=== PATIENT | male | born 1950 | race Caucasian/White ===

== ENCOUNTER → 2016-04-29 | Outpatient (CLI) | payer OTHER ==
[~2016-04-29] MED LIST: /AUGM875TA OR; ACET65TA OR; ALLE25CA PO; ALPR0.25 PO; AMLO5TAB2 PO; AZIT250T PO; BABY81CH; BABY81CH PO; CARD180T OR; CHERSYP3 PO; DIPH50CA PO; DOXA2TAB PO; DYAZ37.5 OR; ENAL10TA2 OR; ENAL20TA OR; ENAL20TA PO; ENAL5TAB; FERR325T OR; HYDR12.55 PO; HYDR25TA7; METAMUCIL PO; METO100T PO; MOTRIN PO; MULTCAP PO; PERCOCET PO; PRED1TAB32 PO; PRIL40CA PO; SIMV20TA2 PO; SKEL800T5; TESS100C OR; TRAZ50TA4 PO; VASO20TA PO; VICO5TAB OR; VITA500T OR; ZOCO20TA
[2016-04-29 14:03] LABS: ALBUMIN/GLOBULIN RATIO 1.21 (1.00-1.93); ALKALINE PHOSPHATASE 51 U/L (45-117); ALT/SGPT 34 U/L (12-78); ANION GAP 4 MEQ/L (8-16); AST/SGOT 28 U/L (15-37); BILIRUBIN,TOTAL 0.5 MG/DL (0.2-1.0); BLOOD UREA NITROGEN 12 MG/DL (7-18); CALCIUM LEVEL 8.8 MG/DL (8.8-10.2); CARBON DIOXIDE LEVEL 33 MEQ/L (21-32); CHLORIDE LEVEL 105 MEQ/L (98-107); CHOLESTEROL LEVEL 196 MG/DL (<200); CREATININE FOR GFR 0.85 MG/DL (0.70-1.30); GLOMERULAR FILTRATION RATE > 60.0 (>49); GLUCOSE, FASTING 130 MG/DL (80-110); POTASSIUM SERUM 4.8 MEQ/L (3.5-5.1); SODIUM LEVEL 142 MEQ/L (136-145); TOTAL PROTEIN 7.3 GM/DL (6.4-8.2); TRIGLYCERIDES LEVEL 49 MG/DL (<150)
== END ==
LOC: M WUC 08:28
PROVIDERS: ATTEND Nurse Practitioner Family
DX: E11.9 Type 2 diabetes mellitus without complications (principal); E78.4 Other hyperlipidemia; I10 Essential (primary) hypertension

== ENCOUNTER → 2016-10-21 | Outpatient (CLI) | payer OTHER ==
[~2016-10-21] MED LIST changes: -METO100T PO; +METO100T5 PO; +TRAZ50TA11 PO; -TRAZ50TA4 PO
[2016-10-21 09:39] LABS: BASO % 0.6 % (0.0-1.0); EOS # 0.1 K/mm3 (0.0-0.50); EOS % 1.3 % (0.0-3.0); LARGE UNSTAINED CELL # 0.1 K/mm3 (0.0-0.4); LARGE UNSTAINED CELL % 1.8 % (0.0-4.0); LYMPH # 1.1 K/mm3 (1.5-4.5); LYMPH % 20.8 % (24.0-44.0); MEAN CORPUSCULAR HEMOGLOBIN 31.1 pg (27.0-33.0); MEAN CORPUSCULAR HGB CONC 33.2 g/dl (32.0-36.5); MEAN CORPUSCULAR VOLUME 93.7 fl (80.0-96.0); MONO # 0.4 K/mm3 (0.0-0.8); MONO % 6.9 % (0.0-5.0); NEUTROPHILS # 3.5 K/mm3 (1.8-7.7); NEUTROPHILS % 68.5 % (36.0-66.0); PLATELET COUNT, AUTOMATED 262 k/mm3 (150-450); RED CELL DISTRIBUTION WIDTH 12.1 % (11.5-14.5); WHITE BLOOD COUNT 5.1 K/mm3 (4.0-10.0)
[2016-10-21 10:08] LABS: ALBUMIN 3.5 GM/DL (3.2-5.2); ALBUMIN/GLOBULIN RATIO 1.03 (1.00-1.93); ALKALINE PHOSPHATASE 52 U/L (45-117); ALT/SGPT 28 U/L (12-78); ANION GAP 8 MEQ/L (8-16); AST/SGOT 21 U/L (15-37); BILIRUBIN,TOTAL 0.4 MG/DL (0.2-1.0); BLOOD UREA NITROGEN 12 MG/DL (7-18); CALCIUM LEVEL 8.7 MG/DL (8.8-10.2); CARBON DIOXIDE LEVEL 29 MEQ/L (21-32); CHLORIDE LEVEL 103 MEQ/L (98-107); CHOLESTEROL LEVEL 185 MG/DL (<200); CREATININE FOR GFR 0.72 MG/DL (0.70-1.30); GLOMERULAR FILTRATION RATE > 60.0 (>49); GLUCOSE, FASTING 119 MG/DL (80-110); POTASSIUM SERUM 4.9 MEQ/L (3.5-5.1); SODIUM LEVEL 140 MEQ/L (136-145); TOTAL PROTEIN 6.9 GM/DL (6.4-8.2); TRIGLYCERIDES LEVEL 51 MG/DL (<150)
== END ==
LOC: M WUC 08:22
PROVIDERS: ATTEND Nurse Practitioner Family
DX: I10 Essential (primary) hypertension (principal); E11.9 Type 2 diabetes mellitus without complications; E78.4 Other hyperlipidemia

== ENCOUNTER → 2016-10-28 | Outpatient (CLI) | payer OTHER | LOC: M WUC 10:39 | PROVIDERS: ATTEND Nurse Practitioner Family | DX: Z12.5 Encounter for screening for malignant neoplasm of prostate (principal) ==

== ENCOUNTER → 2017-12-06 | Outpatient (CLI) | payer MEDICARE, OTHER ==
[2017-12-06 13:44] LABS: BASO % 0.7 % (0.0-1.0); EOS # 0.1 10^3/uL (0.0-0.50); EOS % 1.5 % (0.0-3.0); HEMATOCRIT 40.2 % (42.0-52.0); HEMOGLOBIN 13.5 g/dl (13.5-17.5); IMMATURE GRANULOCYTE % 0.3 % (0-3.0); LYMPH # 1.2 10^3/uL (1.5-4.5); LYMPH % 20.9 % (24.0-44.0); MEAN CORPUSCULAR HEMOGLOBIN 30.8 pg (27.0-33.0); MEAN CORPUSCULAR HGB CONC 33.6 g/dl (32.0-36.5); MEAN CORPUSCULAR VOLUME 91.8 fl (80.0-96.0); MONO # 0.6 10^3/uL (0.0-0.8); MONO % 9.5 % (0.0-5.0); NEUTROPHILS % 67.1 % (36.0-66.0); PLATELET COUNT, AUTOMATED 237 10^3/uL (150-450); RED BLOOD COUNT 4.38 10^6/uL (4.30-6.10); RED CELL DISTRIBUTION WIDTH 12.4 % (11.5-14.5); WHITE BLOOD COUNT 5.9 10^3/uL (4.0-10.0)
[2017-12-06 14:11] LABS: ALBUMIN/GLOBULIN RATIO 1.43 (1.00-1.93); ALKALINE PHOSPHATASE 45 U/L (45-117); ALT/SGPT 41 U/L (12-78); ANION GAP 10 MEQ/L (8-16); AST/SGOT 28 U/L (7-37); BILIRUBIN,TOTAL 0.5 MG/DL (0.2-1.0); BLOOD UREA NITROGEN 13 MG/DL (7-18); CALCIUM LEVEL 8.9 MG/DL (8.8-10.2); CARBON DIOXIDE LEVEL 28 MEQ/L (21-32); CHLORIDE LEVEL 101 MEQ/L (98-107); CHOLESTEROL LEVEL 174 MG/DL (<200); CHOLESTEROL RISK RATIO 1.831 (<5); CREATININE FOR GFR 0.77 MG/DL (0.70-1.30); GLOMERULAR FILTRATION RATE > 60.0 (>49); GLUCOSE, FASTING 113 MG/DL (70-100); HDL CHOLESTEROL 95 MG/DL (>40); LDL CHOLESTEROL 67 MG/DL (<100); NON-HDL-C 79 MG/DL; POTASSIUM SERUM 4.6 MEQ/L (3.5-5.1); SODIUM LEVEL 139 MEQ/L (136-145); TOTAL PROTEIN 6.8 GM/DL (6.4-8.2); TRIGLYCERIDES LEVEL 59 MG/DL (<150)
[2017-12-06 14:59] LABS: ESTIMATED AVERAGE GLUCOSE 111 MG/DL (60-110); HEMOGLOBIN A1c 5.5 %
[2017-12-07 14:20] LABS: PSA TOTAL 1.6 ng/mL (0.0-4.0)
== END ==
LOC: M WUC 09:14
DX: I10 Essential (primary) hypertension (principal); E11.9 Type 2 diabetes mellitus without complications; E78.4 Other hyperlipidemia; Z12.5 Encounter for screening for malignant neoplasm of prostate
CPT/HCPCS: 80053

== ENCOUNTER 2018-01-31 10:27 | Emergency (ER) | payer MEDICARE, OTHER ==
[2018-01-31 11:01] LABS: BASO # 0.1 10^3/uL (0.0-0.2); BASO % 1.1 % (0.0-1.0); EOS # 0.3 10^3/uL (0.0-0.50); EOS % 6.4 % (0.0-3.0); HEMATOCRIT 42.3 % (42.0-52.0); HEMOGLOBIN 14.3 g/dl (13.5-17.5); LYMPH # 1.1 10^3/uL (1.5-4.5); LYMPH % 20.6 % (24.0-44.0); MEAN CORPUSCULAR HEMOGLOBIN 31.2 pg (27.0-33.0); MEAN CORPUSCULAR HGB CONC 33.8 g/dl (32.0-36.5); MEAN CORPUSCULAR VOLUME 92.2 fl (80.0-96.0); MONO # 0.5 10^3/uL (0.0-0.8); MONO % 9.6 % (0.0-5.0); NEUTROPHILS # 3.3 10^3/uL (1.8-7.7); NEUTROPHILS % 62.3 % (36.0-66.0); PLATELET COUNT, AUTOMATED 248 10^3/uL (150-450); RED BLOOD COUNT 4.59 10^6/uL (4.30-6.10); RED CELL DISTRIBUTION WIDTH 12.2 % (11.5-14.5); WHITE BLOOD COUNT 5.3 10^3/uL (4.0-10.0)
[2018-01-31 11:20] LABS: ANION GAP 5 MEQ/L (8-16); BLOOD UREA NITROGEN 8 MG/DL (7-18); CALCIUM LEVEL 9.1 MG/DL (8.8-10.2); CARBON DIOXIDE LEVEL 29 MEQ/L (21-32); CHLORIDE LEVEL 102 MEQ/L (98-107); GLOMERULAR FILTRATION RATE > 60.0 (>49); GLUCOSE, FASTING 141 MG/DL (70-100); SODIUM LEVEL 136 MEQ/L (136-145)
[2018-01-31 11:51] LABS: INFLUENZA A AMPLIFICATION NEGATIVE (NEGATIVE); INFLUENZA B AMPLIFICATION NEGATIVE (NEGATIVE)
== END 2018-01-31 12:20 | disposition home or self-care (01) ==
LOC: M ED 10:27
DX: J06.9 Acute upper respiratory infection, unspecified (principal); R50.9 Fever, unspecified; Z88.1 Allergy status to other antibiotic agents; Z88.8 Allergy status to other drugs, medicaments and biological substances; Z91.040 Latex allergy status; Z95.1 Presence of aortocoronary bypass graft; Z95.2 Presence of prosthetic heart valve; Z79.899 Other long term (current) drug therapy; Z79.82 Long term (current) use of aspirin
CPT/HCPCS: 71046

== ENCOUNTER → 2018-07-26 | Outpatient (CLI) | payer MEDICARE, OTHER ==
[~2018-07-26] MED LIST changes: +AMLO10TA PO; -AMLO5TAB2 PO; +AMLO5TAB6 PO; +BENZ200C70 PO; +DOXA1TAB67 PO; +LISI-538 PO; +LORA-243 PO; +METO50TA7 PO; +PAXI30TA11 PO; +TRAZ-160 PO; -TRAZ50TA11 PO
[2018-07-26 12:46] LABS: BASO % 0.8 % (0.0-1.0); EOS % 0.8 % (0.0-3.0); HEMATOCRIT 41.9 % (42.0-52.0); HEMOGLOBIN 13.4 g/dl (13.5-17.5); LYMPH # 1.2 10^3/uL (1.5-4.5); LYMPH % 22.8 % (24.0-44.0); MEAN CORPUSCULAR HEMOGLOBIN 30.7 pg (27.0-33.0); MEAN CORPUSCULAR VOLUME 95.9 fl (80.0-96.0); MONO # 0.6 10^3/uL (0.0-0.8); MONO % 11.1 % (0.0-5.0); NEUTROPHILS # 3.2 10^3/uL (1.8-7.7); NEUTROPHILS % 64.1 % (36.0-66.0); PLATELET COUNT, AUTOMATED 247 10^3/uL (150-450); RED BLOOD COUNT 4.37 10^6/uL (4.30-6.10); WHITE BLOOD COUNT 5.1 10^3/uL (4.0-10.0)
[2018-07-26 13:07] LABS: ALBUMIN 3.4 GM/DL (3.2-5.2); ALT/SGPT 31 U/L (12-78); BILIRUBIN,TOTAL 0.4 MG/DL (0.2-1.0); BLOOD UREA NITROGEN 11 MG/DL (7-18); CALCIUM LEVEL 8.4 MG/DL (8.8-10.2); CARBON DIOXIDE LEVEL 28 MEQ/L (21-32); CHLORIDE LEVEL 106 MEQ/L (98-107); CHOLESTEROL LEVEL 165 MG/DL (<200); CHOLESTEROL RISK RATIO 1.718 (<5); CREATININE FOR GFR 0.81 MG/DL (0.70-1.30); GLOMERULAR FILTRATION RATE > 60.0 (>49); GLUCOSE, FASTING 117 MG/DL (70-100); HDL CHOLESTEROL 96 MG/DL (>40); LDL CHOLESTEROL 61 MG/DL (<100); NON-HDL-C 69 MG/DL; POTASSIUM SERUM 4.5 MEQ/L (3.5-5.1); SODIUM LEVEL 141 MEQ/L (136-145); TOTAL PROTEIN 6.8 GM/DL (6.4-8.2); TRIGLYCERIDES LEVEL 40 MG/DL (<150)
[2018-07-26 13:38] LABS: HEMOGLOBIN A1c 5.4 %
== END ==
LOC: M WUC 08:53
PROVIDERS: ATTEND Nurse Practitioner Family
DX: E11.9 Type 2 diabetes mellitus without complications (principal); I10 Essential (primary) hypertension; E78.49 Other hyperlipidemia

== ENCOUNTER 2018-09-29 09:21 | Emergency (ER) | payer MEDICARE, OTHER ==
[~2018-09-29] VITALS: Ht 177.8 cm; Wt 80.5 kg
[~2018-09-29 09:21] MED LIST changes: -TRAZ-160 PO; +TRAZ-252 PO
[2018-09-29 09:53] LABS: BASO % 0.3 % (0.0-1.0); EOS % 0.5 % (0.0-3.0); LYMPH # 0.7 10^3/uL (1.5-4.5); LYMPH % 12.2 % (24.0-44.0); MEAN CORPUSCULAR HEMOGLOBIN 30.7 pg (27.0-33.0); MEAN CORPUSCULAR HGB CONC 33.3 g/dl (32.0-36.5); MONO # 0.6 10^3/uL (0.0-0.8); MONO % 10.6 % (0.0-5.0); NEUTROPHILS # 4.4 10^3/uL (1.8-7.7); NEUTROPHILS % 76.1 % (36.0-66.0); PLATELET COUNT, AUTOMATED 240 10^3/uL (150-450); RED BLOOD COUNT 4.89 10^6/uL (4.30-6.10); WHITE BLOOD COUNT 5.8 10^3/uL (4.0-10.0)
[2018-09-29] MEDS ORDERED: NS 1,000 ML IV ONE (10:00)
[2018-09-29 10:08] LABS: PROTHROMBIN TIME 12.9 SECONDS (11.8-14.0)
[2018-09-29 10:16] LABS: ALBUMIN 3.8 GM/DL (3.2-5.2); ALT/SGPT 41 U/L (12-78); BILIRUBIN,DIRECT 0.2 MG/DL (0.0-0.2); BILIRUBIN,TOTAL 0.5 MG/DL (0.2-1.0); BLOOD UREA NITROGEN 15 MG/DL (7-18); CALCIUM LEVEL 8.8 MG/DL (8.8-10.2); CARBON DIOXIDE LEVEL 27 MEQ/L (21-32); CHLORIDE LEVEL 104 MEQ/L (98-107); CREATININE FOR GFR 0.87 MG/DL (0.70-1.30); GLOMERULAR FILTRATION RATE > 60.0 (>49); GLUCOSE, FASTING 119 MG/DL (70-100); LIPASE 291 U/L (73-393); POTASSIUM SERUM 4.6 MEQ/L (3.5-5.1); SODIUM LEVEL 137 MEQ/L (136-145); TOTAL PROTEIN 7.4 GM/DL (6.4-8.2)
[2018-09-29] MEDS ORDERED: ISOVUE-370 76% 100ML VIAL (Q9967) As Ordered ONE (10:30)
[2018-09-29 11:35] VITALS: BP 152/75
--- NOTE | 2018-09-29 13:07 | REP ---
CT of the abdomen pelvis with IV contrast, without bowel contrast: The visualized lung carrasco are unremarkable. The hepatic parenchyma, gallbladder, pancreas, spleen, adrenals and kidneys are unremarkable except for a Bosniak type 1 3.2 cm left renal cyst, and changed. The abdominal aorta is unremarkable except for calcified atheroma. There is no retroperitoneal adenopathy or mass. There is wall thickening of the descending colon and sigmoid colon compatible with colitis in the appropriate clinical setting as an interval change. There is sigmoid diverticulosis without diverticulitis, unchanged. Pelvis: The terminal ileum is unremarkable. The bladder is unremarkable. There is no adenopathy or ascites. Impression: There is wall thickening of the descending colon and sigmoid colon compatible with colitis in the appropriate clinical setting. Diverticulosis without diverticulitis, unchanged. Bosniak type 1 simple left renal cyst, unchanged. Electronically Signed by Willie Ni MD 09/29/2018 12:59 P
== END 2018-09-29 11:53 | disposition home or self-care (01) ==
LOC: M ED 09:21
DX: K52.9 Noninfective gastroenteritis and colitis, unspecified (principal); I11.0 Hypertensive heart disease with heart failure; I50.9 Heart failure, unspecified; E78.9 Disorder of lipoprotein metabolism, unspecified; F41.9 Anxiety disorder, unspecified; Z79.899 Other long term (current) drug therapy; Z79.82 Long term (current) use of aspirin; Z88.1 Allergy status to other antibiotic agents; Z88.8 Allergy status to other drugs, medicaments and biological substances; Z87.891 Personal history of nicotine dependence
CPT/HCPCS: 36415; 74177; 80048; 80076; 83690; 85025; 85610; 85730; 86850; 86900; 86901; 87507; 99284; Q9967

== ENCOUNTER → 2018-12-14 | Outpatient (CLI) | payer MEDICARE, OTHER ==
[2018-12-14 12:21] LABS: BASO % 0.5 % (0.0-1.0); EOS # 0.2 10^3/uL (0.0-0.5); EOS % 2.6 % (0.0-3.0); HEMATOCRIT 42.8 % (42.0-52.0); HEMOGLOBIN 14.1 g/dl (13.5-17.5); LYMPH # 1.2 10^3/uL (1.5-5.0); LYMPH % 19.4 % (24.0-44.0); MEAN CORPUSCULAR HEMOGLOBIN 30.4 pg (27.0-33.0); MEAN CORPUSCULAR HGB CONC 32.9 g/dl (32.0-36.5); MEAN CORPUSCULAR VOLUME 92.2 fl (80.0-96.0); MONO # 0.6 10^3/uL (0.0-0.8); MONO % 9.9 % (0.0-5.0); NEUTROPHILS # 4.1 10^3/uL (1.5-8.5); NEUTROPHILS % 67.1 % (36.0-66.0); PLATELET COUNT, AUTOMATED 281 10^3/uL (150-450); RED BLOOD COUNT 4.64 10^6/uL (4.30-6.10)
[2018-12-14 12:29] LABS: BLOOD UREA NITROGEN 13 MG/DL (7-18); CALCIUM LEVEL 8.5 MG/DL (8.8-10.2); CARBON DIOXIDE LEVEL 30 MEQ/L (21-32); CHLORIDE LEVEL 103 MEQ/L (98-107); CHOLESTEROL LEVEL 178 MG/DL (<200); CREATININE FOR GFR 0.75 MG/DL (0.70-1.30); GLOMERULAR FILTRATION RATE > 60.0 (>49); GLUCOSE, FASTING 109 MG/DL (70-100); HDL CHOLESTEROL 89 MG/DL (>40); LDL CHOLESTEROL 79 MG/DL (<100); NON-HDL-C 89 MG/DL; POTASSIUM SERUM 4.5 MEQ/L (3.5-5.1); SODIUM LEVEL 138 MEQ/L (136-145); TRIGLYCERIDES LEVEL 52 MG/DL (<150)
== END ==
LOC: M WUC 08:50
PROVIDERS: ATTEND Internal Medicine Pulmonary Disease
DX: I25.10 Atherosclerotic heart disease of native coronary artery without angina pectoris (principal); J44.9 Chronic obstructive pulmonary disease, unspecified

== ENCOUNTER → 2019-01-09 | Outpatient (CLI) | payer MEDICARE, OTHER ==
--- NOTE | 2019-01-09 12:40 | REP ---
Clinical: Fever . Comparison: 01/31/2018 . Technique: PA and lateral. Findings: The mediastinum and cardiac silhouette are normal. Evidence for prior sternotomy and cardiac valve repair. The lung carrasco are clear and without acute consolidation, effusion, or pneumothorax. The skeletal structures demonstrate osteopenia and degenerative changes. Impression: 1. No acute cardiopulmonary process. Electronically Signed by Champ Moralez MD 01/09/2019 12:33 P
--- NOTE | 2019-01-09 12:44 | REP ---
Clinical: Posterior knee pain. Technique: AP, lateral, bilateral oblique and sunrise views of the left knee. Findings: Generalized age-related degenerative changes are appreciated. No overt osteoarthritic degenerative findings. No acute fracture dislocation. No effusion. Calcifications consistent with peripheral vascular disease noted. Impression: Essentially generalized age-related changes. Electronically Signed by Champ Moralez MD 01/09/2019 12:36 P
== END ==
LOC: M WUC 12:11
PROVIDERS: ATTEND Physician Assistant Medical
DX: M85.88 Other specified disorders of bone density and structure, other site (principal); R50.9 Fever, unspecified; M25.562 Pain in left knee
CPT/HCPCS: 71046; 73564; G0463

== ENCOUNTER → 2019-03-12 | Outpatient (CLI) | payer MEDICARE, OTHER ==
[2019-03-12 13:41] LABS: BASO # 0.1 10^3/uL (0.0-0.2); BASO % 0.7 % (0.0-1.0); EOS # 0.1 10^3/uL (0.0-0.5); EOS % 0.7 % (0.0-3.0); HEMATOCRIT 40.2 % (42.0-52.0); HEMOGLOBIN 13.5 g/dl (13.5-17.5); LYMPH # 1.7 10^3/uL (1.5-5.0); LYMPH % 22.7 % (24.0-44.0); MEAN CORPUSCULAR HEMOGLOBIN 30.7 pg (27.0-33.0); MEAN CORPUSCULAR HGB CONC 33.6 g/dl (32.0-36.5); MEAN CORPUSCULAR VOLUME 91.4 fl (80.0-96.0); MONO # 0.7 10^3/uL (0.0-0.8); MONO % 9.7 % (0.0-5.0); NEUTROPHILS # 4.9 10^3/uL (1.5-8.5); NEUTROPHILS % 65.8 % (36.0-66.0); PLATELET COUNT, AUTOMATED 277 10^3/uL (150-450); WHITE BLOOD COUNT 7.5 10^3/uL (4.0-10.0)
[2019-03-12 14:21] LABS: ALBUMIN 3.6 GM/DL (3.2-5.2); ALT/SGPT 38 U/L (12-78); BILIRUBIN,TOTAL 0.9 MG/DL (0.2-1.0); BLOOD UREA NITROGEN 12 MG/DL (7-18); C REACTIVE PROTEIN QUANTITATIV < 0.30 MG/DL (0.00-0.30); CALCIUM LEVEL 8.8 MG/DL (8.8-10.2); CARBON DIOXIDE LEVEL 29 MEQ/L (21-32); CHLORIDE LEVEL 100 MEQ/L (98-107); CREATININE FOR GFR 0.82 MG/DL (0.70-1.30); GLOMERULAR FILTRATION RATE > 60.0 (>49); GLUCOSE, FASTING 100 MG/DL (70-100); POTASSIUM SERUM 4.3 MEQ/L (3.5-5.1); SODIUM LEVEL 136 MEQ/L (136-145); TOTAL PROTEIN 6.9 GM/DL (6.4-8.2)
[2019-03-12 14:22] LABS: ERYTHROCYTE SEDIMENTATION RATE 8 mm/hr (0-20)
[2019-03-14 00:10] LABS: Lyme Disease IgG/IgM Antibodie <0.91 ISR (0.00-0.90); Lyme Disease IgM Ab Quantitati <0.80 index (0.00-0.79)
== END ==
LOC: M LAB 12:14
PROVIDERS: ATTEND Physician Assistant Medical
DX: R50.9 Fever, unspecified (principal)
CPT/HCPCS: 36415; 80053; 85025; 85652; 86140; 86617; 87040; 87086; G0463

== ENCOUNTER → 2019-05-15 | Outpatient (CLI) | payer MEDICARE, OTHER ==
--- NOTE | 2019-05-15 13:49 | REP ---
CHEST, TWO VIEWS: There is no evidence of acute infiltrate. No pleural effusion is seen. The heart is normal in size. The mediastinal silhouette is unremarkable. The visualized osseous structures are intact. Multiple sternal wires and mediastinal clips are present. There are degenerative changes of the spine. IMPRESSION: No acute pulmonary disease. Electronically Signed by Willie Nava MD 05/15/2019 07:57 P
[2019-05-15 16:38] LABS: BASO # 0.1 10^3/uL (0.0-0.2); BASO % 0.8 % (0.0-1.0); EOS # 0.1 10^3/uL (0.0-0.5); EOS % 1.4 % (0.0-3.0); HEMATOCRIT 40.9 % (42.0-52.0); HEMOGLOBIN 13.7 g/dl (13.5-17.5); LYMPH # 1.9 10^3/uL (1.5-5.0); LYMPH % 29.9 % (24.0-44.0); MEAN CORPUSCULAR HEMOGLOBIN 31.1 pg (27.0-33.0); MEAN CORPUSCULAR HGB CONC 33.5 g/dl (32.0-36.5); MEAN CORPUSCULAR VOLUME 92.7 fl (80.0-96.0); MONO # 0.6 10^3/uL (0.0-0.8); MONO % 9.7 % (0.0-5.0); NEUTROPHILS # 3.6 10^3/uL (1.5-8.5); NEUTROPHILS % 57.6 % (36.0-66.0); PLATELET COUNT, AUTOMATED 268 10^3/uL (150-450); RED BLOOD COUNT 4.41 10^6/uL (4.30-6.10); WHITE BLOOD COUNT 6.3 10^3/uL (4.0-10.0)
[2019-05-15 16:44] LABS: BLOOD UREA NITROGEN 14 MG/DL (7-18); C REACTIVE PROTEIN QUANTITATIV < 0.30 MG/DL (0.00-0.30); CALCIUM LEVEL 8.7 MG/DL (8.8-10.2); CARBON DIOXIDE LEVEL 31 MEQ/L (21-32); CHLORIDE LEVEL 104 MEQ/L (98-107); CREATININE FOR GFR 0.78 MG/DL (0.70-1.30); GLOMERULAR FILTRATION RATE > 60.0 (>49); GLUCOSE, FASTING 118 MG/DL (70-100); NT-PRO BNP 186 PG/ML (<125); POTASSIUM SERUM 4.3 MEQ/L (3.5-5.1); RHEUMATOID FACTOR QUANT < 10.0 IU/ML (<15.0); SODIUM LEVEL 137 MEQ/L (136-145)
[2019-05-15 19:30] LABS: ERYTHROCYTE SEDIMENTATION RATE 6 mm/hr (0-20)
[2019-05-18 00:07] LABS: ANTINUCLEAR ANTIBODIES DIRECT Negative (Negative)
== END ==
LOC: M WUC 12:33
PROVIDERS: ATTEND Nurse Practitioner Family
DX: R50.9 Fever, unspecified (principal); I51.89 Other ill-defined heart diseases

== ENCOUNTER → 2019-05-18 | Outpatient (CLI) | payer MEDICARE, OTHER ==
--- NOTE | 2019-05-18 12:39 | REP ---
BILATERAL LOWER EXTREMITY DUPLEX VENOUS ULTRASOUND: HISTORY: Swelling. Rule out DVT. FINDINGS: In the left lower extremity, the deep veins are anechoic and fully compressible from the groin to the popliteal fossa on two-dimensional scanning. Color flow and spectral Doppler interrogation are unremarkable on the left. There is no evidence of deep vein thrombosis in the left lower extremity. On the right the greater saphenous vein has been previously stripped and is not seen. There is a 6 mm linear echogenic structure along the wall of the femoral vein on the right distally. This is most consistent with old chronic DVT. The vein lumen is fully compressible. No other evidence of thrombosis is seen. Color flow and spectral Doppler interrogation are unremarkable on the right. There is a 1.3 cm Darden's cyst in the posteromedial popliteal soft tissues on the right. IMPRESSION: A thin linear structure in the distal femoral vein wall on the right consistent with old chronic DVT. No evidence of acute deep vein thrombosis in either lower extremity. There is a 1.3 cm Darden's cyst on the right. Electronically Signed by Homar Selby MD 05/18/2019 06:40 P
== END ==
LOC: M RAD 11:23
PROVIDERS: ATTEND Internal Medicine Pulmonary Disease
DX: M71.21 Synovial cyst of popliteal space [Baker], right knee (principal); R60.9 Edema, unspecified

== ENCOUNTER → 2019-05-20 | Outpatient (CLI) | payer MEDICARE, OTHER | LOC: M LAB 11:55 | PROVIDERS: ATTEND Nurse Practitioner Family | DX: R50.9 Fever, unspecified (principal) ==

== ENCOUNTER → 2019-05-24 | Outpatient (CLI) | payer MEDICARE, OTHER | LOC: M LAB 10:45 | PROVIDERS: ATTEND Nurse Practitioner Family | DX: R50.9 Fever, unspecified (principal) ==

== ENCOUNTER → 2019-05-30 | Outpatient (CLI) | payer MEDICARE, OTHER ==
[~2019-05-30] MED LIST changes: +LIDOCAINE 1% MDV 20ML VIAL As Ordered ONE
[2019-05-30 16:00] VITALS: BP 177/83
[2019-05-30 16:26] LABS: SOURCE, BODY FLUID LFT KNEE; SYNOVIAL FLUID COLOR PINK (YELLOW)
[2019-05-30 16:40] LABS: MUCIN CLOT TEST 4+ (4+)
[2019-05-30 16:43] LABS: CRYSTALS, BODY FLUID NONE SEEN (NONE SEEN); SOURCE, BODY FLUID CRYSTALS LFT KNEE
--- NOTE | 2019-05-30 16:45 | REP ---
ULTRASOUND-GUIDED LEFT KNEE ASPIRATION The procedure was performed under the direct supervision of Dr. Nava. The risks and benefits of the procedure were explained to the patient and informed consent was obtained. The right knee effusion was localized using ultrasound guidance. The skin was prepped and draped in a sterile fashion. 1% lidocaine was used as a local anesthetic. Using ultrasound guidance an 18-gauge needle was inserted and 1 ml of amy colored fluid was withdrawn and sent to lab for analysis. The patient tolerated the procedure well and there were no immediate complications. After the appropriate amount of monitored convalescence the patient was discharged from the department. Electronically Signed by OMER Tovar 05/30/2019 04:34 P Electronically Signed by Willie Nava MD 05/30/2019 04:36 P
[2019-05-30 16:47] LABS: SOURCE, BODY FLUID GLUCOSE LFT KNEE
[2019-05-31 09:55] LABS: BODY FLUID RHEUMATOID SCREEN NEGATIVE (NEGATIVE)
== END ==
LOC: M IRPRO 13:37
PROVIDERS: ATTEND Family Medicine
DX: M65.861 Other synovitis and tenosynovitis, right lower leg (principal)

== ENCOUNTER → 2019-06-19 | Outpatient (REF) | payer MEDICARE, OTHER ==
[~2019-06-19] MED LIST changes: -LIDOCAINE 1% MDV 20ML VIAL As Ordered ONE
== END ==
LOC: M LAB REF 09:58
PROVIDERS: ATTEND Dermatology
DX: C44.311 Basal cell carcinoma of skin of nose (principal)

== ENCOUNTER → 2019-07-03 | Outpatient (REF) | payer MEDICARE, OTHER | LOC: M LAB REF 17:44 | PROVIDERS: ATTEND Dermatology | DX: Z48.02 Encounter for removal of sutures (principal) ==

== ENCOUNTER → 2019-07-05 | Outpatient (CLI) | payer MEDICARE, OTHER ==
--- NOTE | 2019-07-10 08:36 | SLEEPHOME ---
DATE OF PROCEDURE: 07/05/2019 ORDERED BY: Dr. Zhang Diagnostic home sleep testing is performed due to concern for the obstructive sleep apnea syndrome. For testing a nocturnal T3 respiratory monitoring device was used. Continuous record was made of pulse, oxygen saturation, airflow, chest and abdominal strain, and body position. 9 hours and 59 minutes of data were reviewed. There were 7 hours and 57 minutes marked as time in bed. During the interval marked time in bed, there were 121 respiratory events identified of 10 seconds in duration or greater for respiratory event index of 15.2. The events were primarily obstructive, 9 mixed and central apneas were seen. Baseline pulse rate 72 beats per minute. Pulse rate ranged 59-89. Baseline saturation was 90%. Saturations fell as low as 59%. Testing with her both the supine and nonsupine positions. IMPRESSION: Abnormal home sleep testing with repetitive respiratory events and oxygen desaturations to 69% with a respiratory event index of 15.2 is consistent with the obstructive sleep apnea syndrome. RECOMMENDATIONS: The patient should be encouraged to undergo formal sleep evaluation.
== END ==
LOC: M SLEEP HO 10:57
PROVIDERS: ATTEND Internal Medicine Pulmonary Disease
DX: R06.83 Snoring (principal)

== ENCOUNTER → 2019-08-28 | Outpatient (CLI) | payer MEDICARE, OTHER ==
[2019-08-28 16:09] LABS: BLOOD UREA NITROGEN 10 MG/DL (7-18); CALCIUM LEVEL 8.5 MG/DL (8.8-10.2); CARBON DIOXIDE LEVEL 27 MEQ/L (21-32); CHLORIDE LEVEL 99 MEQ/L (98-107); CREATININE FOR GFR 0.77 MG/DL (0.70-1.30); GLOMERULAR FILTRATION RATE > 60.0 (>49); GLUCOSE, FASTING 91 MG/DL (70-100); POTASSIUM SERUM 3.9 MEQ/L (3.5-5.1); SODIUM LEVEL 134 MEQ/L (136-145)
== END ==
LOC: M WUC 13:51
PROVIDERS: ATTEND Internal Medicine Pulmonary Disease
DX: Z51.81 Encounter for therapeutic drug level monitoring (principal); Z79.899 Other long term (current) drug therapy; J47.9 Bronchiectasis, uncomplicated

== ENCOUNTER → 2019-09-17 | Outpatient (CLI) | payer MEDICARE, OTHER ==
--- NOTE | 2019-09-27 16:48 | SLEEPCENT ---
DATE OF PROCEDURE: 09/17/2019 ORDERED BY: Dr. Zhang Nocturnal polysomnography was performed to evaluate sleep physiology in this patient with a history suggesting obstructive sleep apnea syndrome and home testing with a respiratory event index of 15.2. 7 hours and 52 minutes of data were reviewed. There were 363 minutes of sleep identified. Sleep latency was prolonged at 56.5 minutes, rapid eye movement (REM) latency was quite prolonged at 252 minutes. Sleep architecture showed poor progression with two REM cycles noted. Overall sleep efficiency was 77.5%. The patient's electrocardiogram showed a sinus rhythm with an average heart rate of 68 beats per minute. EEG showed normal waveforms for awake and sleep. There were 237 respiratory events identified of 10 seconds in duration or greater for an apnea-hypopnea index of 39.2. The events were primarily obstructive, not exclusive to sleep stage nor body posture. Arousals from respiratory events occurred 9.3 times per hour, and oxygen desaturations were seen into the 80s. There was some activity noted in the limb leads more early in the study. Limb movement arousal index was 2.1. Snoring was noted throughout the test. IMPRESSION: Obstructive sleep apnea syndrome (G47.33). Apnea-hypopnea index 39.2. RECOMMENDATIONS: The patient should be encouraged to return to the sleep disorder center for pressure therapy. In the interim, alcohol and sedative avoidance should be practiced and caution exercised during the operation of motor vehicles.
== END ==
LOC: M SLEEP 20:00
PROVIDERS: ATTEND Internal Medicine Pulmonary Disease
DX: G47.33 Obstructive sleep apnea (adult) (pediatric) (principal)

== ENCOUNTER → 2020-02-12 | Outpatient (REF) | payer MEDICARE, OTHER ==
[~2020-02-12] MED LIST changes: +AMLO1TAB24 PO; -AMLO5TAB6 PO; -ENAL20TA PO; +ENAL20TA11 PO
[2020-02-12 15:19] LABS: BASO % 0.8 % (0.0-1.0); EOS % 0.6 % (0.0-3.0); HEMATOCRIT 39.4 % (42.0-52.0); LYMPH % 21.1 % (24.0-44.0); MEAN CORPUSCULAR HEMOGLOBIN 29.7 pg (27.0-33.0); MEAN CORPUSCULAR VOLUME 90.2 fl (80.0-96.0); MONO # 0.7 10^3/uL (0.0-0.8); MONO % 14.2 % (0.0-5.0); NEUTROPHILS % 62.7 % (36.0-66.0); PLATELET COUNT, AUTOMATED 243 10^3/uL (150-450); RED BLOOD COUNT 4.37 10^6/uL (4.30-6.10); WHITE BLOOD COUNT 4.7 10^3/uL (4.0-10.0)
[2020-02-12 15:40] LABS: ALBUMIN 3.8 GM/DL (3.2-5.2); ALT/SGPT 48 U/L (12-78); BILIRUBIN,TOTAL 0.6 MG/DL (0.2-1.0); BLOOD UREA NITROGEN 10 MG/DL (7-18); CALCIUM LEVEL 8.9 MG/DL (8.8-10.2); CARBON DIOXIDE LEVEL 30 MEQ/L (21-32); CHLORIDE LEVEL 98 MEQ/L (98-107); CHOLESTEROL LEVEL 184 MG/DL (<200); CHOLESTEROL RISK RATIO 1.896 (<5); CPK CREATINE PHOSPHOKINASE 76 U/L (39-308); CREATININE FOR GFR 0.83 MG/DL (0.70-1.30); FREE T4 0.99 NG/DL (0.76-1.46); GLOMERULAR FILTRATION RATE > 60.0 (>49); GLUCOSE, FASTING 118 MG/DL (70-100); HDL CHOLESTEROL 97 MG/DL (>40); LDL CHOLESTEROL 71 MG/DL (<100); NON-HDL-C 87 MG/DL; POTASSIUM SERUM 4.6 MEQ/L (3.5-5.1); SODIUM LEVEL 132 MEQ/L (136-145); THYROID STIMULATING HORMONE 0.528 uIU/ML (0.358-3.740); TOTAL PROTEIN 7.3 GM/DL (6.4-8.2); TRIGLYCERIDES LEVEL 82 MG/DL (<150)
[2020-02-12 17:38] LABS: HEMOGLOBIN A1c 5.4 %
== END ==
LOC: M SFHCPLAZ 11:54
PROVIDERS: ATTEND Physician Assistant Medical
DX: F41.1 Generalized anxiety disorder (principal); I10 Essential (primary) hypertension; E78.2 Mixed hyperlipidemia; Z12.5 Encounter for screening for malignant neoplasm of prostate; E66.3 Overweight; Z79.899 Other long term (current) drug therapy
CPT/HCPCS: 36415; 80053; 80061; 82550; 83036; 84439; 84443; 85025; G0103; G0463

== ENCOUNTER → 2020-02-22 | Outpatient (CLI) | payer MEDICARE, OTHER ==
--- NOTE | 2020-02-25 15:43 | SLEEPCENT ---
NOCTURNAL POLYSOMNOGRAPHY DATE: 02/22/2020 ORDERED BY: Dr. Zhang Nocturnal polysomnography was performed to confirm the presence of obstructive sleep apnea syndrome. 8 hours and 24 minutes of data were reviewed. There were 357.5 minutes of sleep identified. Sleep latency was prolonged at 35 minutes. REM latency was 297 minutes. Sleep architecture showed poor progression early in the study. Later in the test, there were two REM cycles noted. Overall sleep efficiency was 72.8%. The electrocardiogram showed a sinus rhythm with an average heart rate of 62 beats per minute and rate range 52 to 78. EEG showed normal waveforms for wake and sleep. There were 67 respiratory events identified of 10 seconds in duration or greater for an apnea-hypopnea index of 11.2. The events were obstructive and not exclusive to sleep stage nor body posture. Arousals from respiratory events occurred 6.5 times per hour and oxygen desaturations were seen into the 70s. Snoring was also noted. There was some limb activity early in the study. Only one train of events, but limb movement arousal index was 20.3. The patient's sleep fragmentation delayed optimal assessment and precluded the performance of a split study. IMPRESSION: 1. Obstructive sleep apnea syndrome (G47.33), apnea-hypopnea index 11.2. 2. Possible periodic limb movement disorder (G47.61), limb movement arousal index 20.3. RECOMMENDATION: The patient should be encouraged to return to the Sleep Disorder Center for pressure therapy. In the interim, alcohol and sedative avoidance should be practiced and caution exercised during the operation of motor vehicles. Pending response to pressure therapy, interventions to reduce the frequency of arousal from limb activity may also be helpful.
== END ==
LOC: M SLEEP 20:00
PROVIDERS: ATTEND Internal Medicine Pulmonary Disease
DX: G47.33 Obstructive sleep apnea (adult) (pediatric) (principal); G47.61 Periodic limb movement disorder

== ENCOUNTER → 2020-02-27 | Outpatient (REF) | payer MEDICARE, OTHER ==
[2020-02-27 16:34] LABS: HEPATITIS A ANTIBODY IGM NEGATIVE (NEGATIVE); HEPATITIS B SURFACE ANTIBODY NEGATIVE (POSITIVE); HEPATITIS B SURFACE ANTIGEN NEGATIVE (NEGATIVE)
== END ==
LOC: M SFHCPLAZ 12:07
PROVIDERS: ATTEND Physician Assistant Medical
DX: R79.89 Other specified abnormal findings of blood chemistry (principal)
CPT/HCPCS: 36415; 86706; 86708; 86709; 87340; G0463; G0472

== ENCOUNTER → 2020-02-29 | Outpatient (CLI) | payer MEDICARE, OTHER ==
--- NOTE | 2020-02-29 08:42 | REP ---
INDICATION: R79.89 ELEV LFTS. COMPARISON: Comparison CT study September 29, 2018.. TECHNIQUE: Right upper quadrant sonography. FINDINGS: Scanning through the right upper quadrant of the abdomen demonstrates a normal sized, thin-walled gallbladder without evidence of stone or polyp. Common bile duct is normal measuring 0.3 cm in greatest diameter. No focal liver lesion is seen. Liver size is at the upper range of normal, 17.2 cm vertical span.. The pancreas is obscured by abdominal gas. No right renal abnormality is seen. There is no evidence of ascites. The right kidney measures 11.4 x 5.7 x 5.5 cm. IMPRESSION: Borderline liver size. No focal lesion. Pancreas obscured by abdominal gas.. <Electronically signed by Pavan Selby > 02/29/20 1831
== END ==
LOC: M WHC 07:44
PROVIDERS: ATTEND Physician Assistant Medical
DX: R79.89 Other specified abnormal findings of blood chemistry (principal)

== ENCOUNTER → 2020-02-29 | Outpatient (CLI) | payer MEDICARE, OTHER ==
--- NOTE | 2020-02-29 09:11 | REPVR ---
PROCEDURE INFORMATION: Exam: CT Maxillofacial Without Contrast, Sinus Exam date and time: 02/29/2020 8:51 AM Age: 69 years old Clinical indication: Sinusitis; Chronic; Additional info: Chronic frontal sinusitis TECHNIQUE: Imaging protocol: CT Maxillofacial without contrast. Focus on the sinuses. Radiation optimization: All CT scans at this facility use at least one of these dose optimization techniques: automated exposure control; mA and/or kV adjustment per patient size (includes targeted exams where dose is matched to clinical indication); or iterative reconstruction. COMPARISON: No relevant prior studies available. FINDINGS: Frontal sinuses: There is mild left inferior frontal mucosal thickening. Ethmoid air cells: There is mild ethmoid mucosal thickening asymmetric to the left. Sphenoid sinuses: Normal. No air-fluid levels. Maxillary sinuses: There is mild mucosal thickening along the floor of the right maxillary sinus. There is an air-fluid level within the left maxillary sinus. The left maxillary sinus infundibulum is obscured by mucosal thickening. Nasal cavity/Septum: There is polypoid thickening within the left nasal cavity. There is leftward nasal septal deviation. Orbital cavity: Orbits are normal. Globes are unremarkable. Bones/joints: Unremarkable. Soft tissues: Unremarkable. IMPRESSION: Sinus mucosal disease as described. Suspected nasal polyposis. Electronically signed by: Selma Vieyra On 02/29/2020 09:11:34 AM
== END ==
LOC: M RAD 08:39
PROVIDERS: ATTEND Physician Assistant Medical
DX: J32.1 Chronic frontal sinusitis (principal); R79.89 Other specified abnormal findings of blood chemistry

== ENCOUNTER → 2020-03-05 | Outpatient (CLI) | payer MEDICARE, OTHER ==
--- NOTE | 2020-03-05 15:27 | REP ---
INDICATION: BRONCHIECTASIS, UNCOMPLICATED- COVID + COMPARISON: 05/15/2019 TECHNIQUE: PA and lateral. FINDINGS: Evidence for prior sternotomy, CABG, and cardiac valve repair. The cardiac silhouette is normal. The lung carrasco are clear. No consolidation, effusion, or pneumothorax. Skeletal structures are intact. IMPRESSION: No acute cardiopulmonary process. No focal consolidation. <Electronically signed by Champ Moralez > 03/05/20 [id number]
== END ==
LOC: M RAD 14:40
PROVIDERS: ATTEND Internal Medicine Pulmonary Disease
DX: J47.9 Bronchiectasis, uncomplicated (principal); R05 Cough

== ENCOUNTER → 2020-05-12 | Outpatient (REF) | payer MEDICARE, OTHER ==
[~2020-05-12] MED LIST changes: -LISI-538 PO; +LISI20TA33 PO
== END ==
LOC: M LAB REF 09:09
PROVIDERS: ATTEND Specialist
DX: J33.0 Polyp of nasal cavity (principal)

== ENCOUNTER → 2020-05-13 | Outpatient (CLI) | payer MEDICARE, OTHER ==
[2020-05-13 16:41] LABS: BLOOD UREA NITROGEN 6 MG/DL (7-18); CREATININE FOR GFR 0.66 MG/DL (0.70-1.30); GLOMERULAR FILTRATION RATE > 60.0 (>49)
== END ==
LOC: M WUC 12:07
PROVIDERS: ATTEND Specialist
DX: J33.0 Polyp of nasal cavity (principal)

== ENCOUNTER → 2020-05-15 | Outpatient (CLI) | payer MEDICARE, OTHER ==
[~2020-05-15] MED LIST changes: +PROHANCE 279.3MG/ML 15ML VIAL As Ordered ONE; +PROHANCE 279.3MG/ML 5ML VIAL As Ordered ONE
--- NOTE | 2020-05-15 08:30 | REPVR ---
PROCEDURE INFORMATION: Exam: MR Neck Without and With Contrast Exam date and time: 05/15/2020 8:12 AM Age: 69 years old Clinical indication: Face pain; Additional info: Chronic pansinusitis TECHNIQUE: Imaging protocol: MR images of the neck without and with intravenous contrast. Contrast material: PROHANCE; Contrast volume: 17 ml; Contrast route: INTRAVENOUS (IV); COMPARISON: CT Maxilofacial w/out contrast 02/29/2020 9:01 AM FINDINGS: Orbital cavity: Examination reveals bilateral globes to be normal in size and morphology. The optic nerves are normal in thickness and signal intensity and symmetric bilaterally. The extraocular muscles are normal in thickness and signal intensity. The retroconal fat has a normal appearance. The lacrimal glands appear normal bilaterally. Paranasal sinuses: Examination reveals chronic polypoid mucosal thickening involving the left maxillary, ethmoid and frontal sinuses with near-complete opacification consistent with chronic sinusitis. There is intense mucosal wall enhancement on the postcontrast images. The sinus contents appear hyperintense on T1 weighted images reflecting increased proteinaceous content. Fungal sinusitis cannot be excluded. There has been significant interval worsening since the previous study. There is mucosal obstruction of the left ostiomeatal complex. There is mild mucosal thickening in the right maxillary and ethmoid sinuses. The right frontal and bilateral sphenoid sinuses are clear. Mastoid air cells: The visualized mastoid air cells are clear. Brain: There is mild patchy increased T2 signal intensity within the bilateral cerebral periventricular white matter, consistent with chronic microvascular ischemic changes. There are multiple small focal areas of chronic ischemia in bilateral frontal, parietal and periatrial white matter. There is mild diffuse cerebral atrophy present, consistent with this patient's age. Cerebral ventricles: The ventricular system demonstrates mild diffuse compensatory enlargement. IMPRESSION: 1. Examination reveals chronic polypoid mucosal thickening involving the left maxillary, ethmoid and frontal sinuses with near-complete opacification consistent with chronic sinusitis. There is intense mucosal wall enhancement on the postcontrast images. The sinus contents appear hyperintense on T1 weighted images reflecting increased proteinaceous content. Fungal sinusitis cannot be excluded. There has been significant interval worsening since the previous study. There is mucosal obstruction of the left ostiomeatal complex. 2. There is mild mucosal thickening in the right maxillary and ethmoid sinuses. The right frontal and bilateral sphenoid sinuses are clear. Electronically signed by: Vincenzo Washnigton On 05/15/2020 08:31:17 AM
== END ==
LOC: M RAD 06:34
PROVIDERS: ATTEND Specialist
DX: J32.4 Chronic pansinusitis (principal); J33.0 Polyp of nasal cavity
CPT/HCPCS: 70543; A9576

== ENCOUNTER → 2020-06-04 | Outpatient (CLI) | payer MEDICARE, OTHER ==
[~2020-06-04] MED LIST changes: +AMLO1TAB25 PO; +AMOX875T2 PO; +ASPI81TA26 PO; +DOXA1TAB40 PO; +LISI40TA4 PO; +OMEP-221 PO; +PARO30TA4 PO; +PRED20TA PO; -PROHANCE 279.3MG/ML 15ML VIAL As Ordered ONE; -PROHANCE 279.3MG/ML 5ML VIAL As Ordered ONE; +SIMV40TA20 PO
== END ==
LOC: M LABSMTC 11:35
PROVIDERS: ATTEND Anesthesiology
DX: Z01.812 Encounter for preprocedural laboratory examination (principal); Z20.822 Contact with and (suspected) exposure to COVID-19

== ENCOUNTER → 2020-06-05 | Outpatient (REF) | payer MEDICARE, OTHER ==
[~2020-06-05] MED LIST changes: +DOXY-350 PO
[2020-06-05 17:29] LABS: BASO % 0.2 % (0.0-1.0); HEMATOCRIT 42.3 % (42.0-52.0); HEMOGLOBIN 13.9 g/dl (13.5-17.5); INR 0.99; LYMPH # 1.1 10^3/uL (1.5-5.0); LYMPH % 12.5 % (24.0-44.0); MEAN CORPUSCULAR HEMOGLOBIN 30.3 pg (27.0-33.0); MEAN CORPUSCULAR HGB CONC 32.9 g/dl (32.0-36.5); MEAN CORPUSCULAR VOLUME 92.4 fl (80.0-96.0); MONO # 0.9 10^3/uL (0.0-0.8); MONO % 9.9 % (2.0-8.0); NEUTROPHILS # 6.8 10^3/uL (1.5-8.5); NEUTROPHILS % 76.8 % (36.0-66.0); PARTIAL THROMBOPLASTIN TIME 26.8 SECONDS (24.2-38.5); PLATELET COUNT, AUTOMATED 291 10^3/uL (150-450); PROTHROMBIN TIME 13.2 SECONDS (12.5-14.3); RED BLOOD COUNT 4.58 10^6/uL (4.30-6.10); WHITE BLOOD COUNT 8.8 10^3/uL (4.0-10.0)
[2020-06-05 17:37] LABS: ALBUMIN 4.2 GM/DL (3.2-5.2); ALT/SGPT 37 U/L (12-78); BILIRUBIN,TOTAL 0.7 MG/DL (0.2-1.0); BLOOD UREA NITROGEN 13 MG/DL (7-18); CALCIUM LEVEL 9.2 MG/DL (8.8-10.2); CARBON DIOXIDE LEVEL 31 MEQ/L (21-32); CHLORIDE LEVEL 101 MEQ/L (98-107); CREATININE FOR GFR 0.72 MG/DL (0.70-1.30); GLOMERULAR FILTRATION RATE > 60.0 (>49); GLUCOSE, FASTING 106 MG/DL (70-100); NT-PRO BNP 285 PG/ML (<125); POTASSIUM SERUM 4.5 MEQ/L (3.5-5.1); SODIUM LEVEL 138 MEQ/L (136-145); TOTAL PROTEIN 7.6 GM/DL (6.4-8.2)
[2020-06-05 17:44] LABS: HEMOGLOBIN A1c 5.5 %
== END ==
LOC: M SFHCPLAZ 15:46
PROVIDERS: ATTEND Family Medicine
DX: E11.69 Type 2 diabetes mellitus with other specified complication (principal); I10 Essential (primary) hypertension; I25.810 Atherosclerosis of coronary artery bypass graft(s) without angina pectoris

== ENCOUNTER 2020-06-09 09:14 | Day surgery (SDC) | payer MEDICARE, OTHER ==
[~2020-06-09] VITALS: Ht 177.8 cm; Wt 84.7 kg
[~2020-06-09 09:14] MED LIST changes: +LR 1,000 ML IV ONE
[2020-06-09] MEDS ORDERED: METHYLENE BLUE 0.5% (5MG/ML) 10 ML AMP (PROVAYBLUE) As Ordered ONE (11:26)
[2020-06-09] MEDS ORDERED: LIDOCAINE W/EPINEPHRINE 1% 20ML VIAL As Ordered ONE (11:26)
[2020-06-09] MEDS ORDERED: ROCURONIUM BROMIDE 50 MG/5 ML VIAL As Ordered ONE (11:27)
[2020-06-09] MEDS ORDERED: LIDOCAINE 2% 100MG/5ML SDV (FOR ANES.) As Ordered ONE (11:27)
[2020-06-09] MEDS ORDERED: fentaNYL 250 MCG/5 ML INJECTION (J3010) As Ordered ONE (11:27)
[2020-06-09] MEDS ORDERED: propofoL 200 MG/20 ML VIAL As Ordered ONE ×2 (11:27→13:08)
[2020-06-09] MEDS ORDERED: MIDAZOLAM INJ 2MG/2ML VIAL (J2250 PER 1MG) As Ordered ONE (11:27)
[2020-06-09] MEDS ORDERED: OXYMETAZOLINE 0.05% NASAL SPRAY (AFRIN) As Ordered ONE (11:27)
[2020-06-09] MEDS ORDERED: SUCCINYLCHOLINE 100 MG/5 ML SYRINGE (J0330) As Ordered ONE (12:29)
[2020-06-09] MEDS ORDERED: PHENYLephrine 500MCG 5ML (100MCG/ML) SYRINGE As Ordered ONE (12:29)
[2020-06-09] MEDS ORDERED: KETOROLAC 60MG 2ML VIAL As Ordered ONE (12:30)
[2020-06-09] MEDS ORDERED: dexameTHASONE 4 MG/ML 1ML VIAL (J1100 PER 1MG) As Ordered ONE (12:30)
[2020-06-09] MEDS ORDERED: ONDANSETRON 4MG/2ML VIAL As Ordered ONE (12:30)
[2020-06-09] MEDS ORDERED: EPINEPHrine INJ 1 MG/ML 1ML AMP As Ordered ONE (12:31)
[2020-06-09] MEDS ORDERED: ACETAMINOPHEN 1000MG 100ML IV BTL (OFIRMEV) (J0131 PER 10MG) As Ordered ONE (12:33)
[2020-06-09] MEDS ORDERED: SUGAMMADEX SODIUM 500 MG/5 ML VIAL (BRIDION) As Ordered ONE (12:39)
[2020-06-09] MEDS ORDERED: fentaNYL 100 MCG/2 ML INJECTION (J3010) IV PRN (13:55)
[2020-06-09] MEDS ORDERED: METOCLOPRAMIDE INJ 10MG/2ML VIAL (J2765 PER 1) IV PRN (13:55)
[2020-06-09] MEDS ORDERED: LR 1,000 ML IV SCH (13:55)
[2020-06-09] MEDS ORDERED: ONDANSETRON 4MG/2ML VIAL IV PRN (13:55)
[2020-06-09] MEDS ORDERED: PERCOCET 5MG/325MG TAB PO PRN ×2 (13:55→14:00)
[2020-06-09] MEDS ORDERED: MEPERIDINE INJ 25 MG/ML VIAL (J2175) IV PRN (13:55)
[2020-06-09 14:00] VITALS: BP 162/90
[2020-06-09] MEDS ORDERED: IBUPROFEN 800 MG TAB PO PRN (14:00)
--- NOTE | 2020-06-18 15:43 | RO ---
OPERATIVE NOTE DATE OF OPERATION: 06/09/2020 PREOPERATIVE DIAGNOSIS: Left-sided chronic sinusitis with nasal polyposis. POSTOPERATIVE DIAGNOSIS: Left-sided chronic sinusitis with nasal polyposis. PROCEDURE: Septoplasty, left endoscopic anterior ethmoidectomy, antrostomy and nasal polypectomy. SURGEON: Alec Mcleod MD SALES SPECIALIST: ANESTHESIA: General endotracheal. INDICATIONS: This is a 69-year-old who had been followed for left-sided nasal obstruction with massive polyposis. He had been treated medically with prednisone for 30 days in preparation for surgery. On presentation initially in office, he had complete occlusion of the nasal cavity from polyp disease. PROCEDURE: Satisfactory general endotracheal anesthesia was administered. A pharyngeal pack was placed. The nose was prepared for surgery by placing cotton soaked pledgets with Afrin solution to the nasal cavity, more on the right side than the left side because the left side was occluded with polyps. 1% Xylocaine with 1:100,000 epinephrine was injected in the nasal septum. A Abisai incision was made on the left side of the nose. A mucoperichondrial flap and envelope was created on the left side of the nasal septum and carried down to the junction of the bony and cartilaginous septum. This was then with an elevator, and an envelope was then created on the right side of the septum. A Manuel scissors was used to make a cut high in the perpendicular plate in the midportion of the vomer, and a central segment of the bony septum was resected. Next, with the round knife on the Maddie elevator, a strip of cartilage was resected from the floor of the nose, mobilizing the quadrilateral cartilage and creating a swinging door. Then, a central segment of cartilaginous septum was resected, preserving a 1 cm dorsal and caudal strut. Double-action rongeur was used to take down deflected portions of the perpendicular plate, as well. Finally, the maxillary crest spur was taken down after elevating mucoperiosteum off both sides of it with a chisel. A segment of the resected cartilage was morselized and placed back into the septal envelope. The incision was closed using an interrupted #5-0 chromic suture. Then, a #4-0 plain suture was placed in a [id number] fashion through the two leaves of mucoperichondrium to appose them. On completing the septal surgery, the left nasal cavity was easy to examine because of the groove created by moving the septum out of the left side. A 2 degree telescope was used for most of the operation. The microdebrider was used as the primary instrument of dissection. 1/2% Xylocaine was injected into the polyps extending from the lateral nasal wall. Using the microdebrider, the gross polyp disease in the middle of the nose and inferior portion in the nasal cavity was resected until the disease was pushed back until the normal landmarks of the inferior turbinate and middle turbinate were identified. The middle meatus was the approached with the endoscope and debrider. The uncinate process was taken down. The ethmoidal bulla was resected away and ground lamella was perforated. In the process of doing this, hyperplastic mucosa and polypoid tissue was resected, clearing the nasal airway. The ground lamella was also perforated and the posterior ethmoid cells entered. There was minimal disease here. No further dissection was done in this direction. Most of the disease was really emerging from the lower end of the middle meatus and middle turbinate, dropping down to the lower part of the nose. With microdebrider, this was all resected away, cleaning the area out nicely. Finally, a large antrostomy was created by using the side-biting and upbiting forceps. The hyperplastic mucosa seen within the maxillary sinus due to the large antrostomy resected both giraffe type forceps to get into the sinus as well as the microdebrider. Adrenalin pledgets were placed for five minutes. When these were removed, there was no significant bleeding and Sinu-Foam was used to fill the middle meatus on that left side. The pharyngeal pack was removed and the throat suctioned. The patient was awakened, extubated, and sent to recovery in satisfactory condition. He will be seen back in the office in three days.
== END 2020-06-09 14:48 | disposition home or self-care (01) ==
LOC: M SDC 09:14
PROVIDERS: ATTEND Specialist
DX: J32.9 Chronic sinusitis, unspecified (principal); J34.2 Deviated nasal septum; J33.9 Nasal polyp, unspecified; K21.9 Gastro-esophageal reflux disease without esophagitis; K57.92 Diverticulitis of intestine, part unspecified, without perforation or abscess without bleeding; I25.2 Old myocardial infarction; I10 Essential (primary) hypertension; E78.5 Hyperlipidemia, unspecified; F41.9 Anxiety disorder, unspecified; Z87.891 Personal history of nicotine dependence; Z79.82 Long term (current) use of aspirin; Z79.52 Long term (current) use of systemic steroids; Z88.1 Allergy status to other antibiotic agents; Z88.8 Allergy status to other drugs, medicaments and biological substances; Z91.040 Latex allergy status
CPT/HCPCS: 30520; 31255; 31267; 88304; 88305; J0131; J0171; J0330; J1100; J1885; J2250; J2370; J2405; J3010; Q9968

== ENCOUNTER → 2020-07-11 | Outpatient (CLI) | payer MEDICARE, OTHER ==
[~2020-07-11] MED LIST changes: -LR 1,000 ML IV ONE
--- NOTE | 2020-07-15 10:46 | SLEEPCENT ---
NOCTURNAL POLYSOMNOGRAPHY CPAP TITRATION DATE: 07/11/2020 ORDERED BY: Walt Zhang M.D. Nocturnal polysomnography was performed for the titration of pressure therapy in this patient with obstructive sleep apnea syndrome with apnea-hypopnea index of 11.2. For testing a ResMed AirFit F20 full face mask of medium size was used, 4 cm of water pressure were applied to the circuit, and the lights were extinguished. 7 hours and 31 minutes of data were reviewed. There were 361.5 minutes of sleep identified. Sleep latency was prolonged at 43 minutes. REM latency was prolonged at 350 minutes. Sleep architecture improved late in the study. There was only REM cycle noted. Overall sleep efficiency was 80.6%. The electrocardiogram showed a sinus rhythm with an average heart rate of 60 beats per minute. EEG showed normal waveforms for wake and sleep. Respiratory events were best palliated with CPAP at a pressure of 16. Significant limb activity was noted. The limb movement arousal index was 26.4. IMPRESSION: 1. Obstructive sleep apnea syndrome (G47.33). 2. Periodic limb movement disorder (G47.61). RECOMMENDATION: Nightly use of pressure therapy at 16 cm is sufficient to overcome the patient's obstructive respiratory disease. Should sleep symptoms persist, interventions to reduce the frequency of arousal from limb activity may also be helpful.
== END ==
LOC: M SLEEP 20:00
PROVIDERS: ATTEND Internal Medicine Pulmonary Disease
DX: G47.33 Obstructive sleep apnea (adult) (pediatric) (principal); G47.61 Periodic limb movement disorder

== ENCOUNTER → 2020-09-09 | Outpatient (CLI) | payer MEDICARE, OTHER ==
--- NOTE | 2020-09-09 11:31 | REP ---
INDICATION: COPD COMPARISON: 03/05/2020 TECHNIQUE: PA and lateral. FINDINGS: The mediastinum and cardiac silhouette are stable. Prior sternotomy, cardiac valve repair and CABG again noted. The lung carrasco demonstrate chronic interstitial changes without acute consolidation, effusion, or pneumothorax. The skeletal structures are intact and normal. IMPRESSION: No acute cardiopulmonary process. <Electronically signed by Champ Moralez > 09/09/20 1125
== END ==
LOC: M WUC 11:15
PROVIDERS: ATTEND Internal Medicine Pulmonary Disease
DX: J98.4 Other disorders of lung (principal); Z98.890 Other specified postprocedural states; Z95.1 Presence of aortocoronary bypass graft

== ENCOUNTER → 2020-09-15 | Outpatient (CLI) | payer MEDICARE, OTHER ==
[2020-09-15 15:01] LABS: BLOOD UREA NITROGEN 13 MG/DL (7-18); CALCIUM LEVEL 8.4 MG/DL (8.8-10.2); CARBON DIOXIDE LEVEL 28 MEQ/L (21-32); CHLORIDE LEVEL 91 MEQ/L (98-107); CREATININE FOR GFR 0.87 MG/DL (0.70-1.30); GLOMERULAR FILTRATION RATE > 60.0 (>49); GLUCOSE, FASTING 115 MG/DL (70-100); POTASSIUM SERUM 4.7 MEQ/L (3.5-5.1); SODIUM LEVEL 125 MEQ/L (136-145)
== END ==
LOC: M WUC 11:36
PROVIDERS: ATTEND Nurse Practitioner Family
DX: R60.9 Edema, unspecified (principal)

== ENCOUNTER → 2020-09-22 | Outpatient (REF) | payer MEDICARE, OTHER | LOC: M LAB REF 16:35 | PROVIDERS: ATTEND Specialist | DX: J01.90 Acute sinusitis, unspecified (principal) ==

== ENCOUNTER → 2020-09-30 | Outpatient (CLI) | payer MEDICARE, OTHER ==
[2020-09-30 13:19] LABS: BLOOD UREA NITROGEN 15 MG/DL (7-18); CALCIUM LEVEL 8.6 MG/DL (8.8-10.2); CARBON DIOXIDE LEVEL 27 MEQ/L (21-32); CHLORIDE LEVEL 98 MEQ/L (98-107); CREATININE FOR GFR 0.82 MG/DL (0.70-1.30); GLOMERULAR FILTRATION RATE > 60.0 (>49); GLUCOSE, FASTING 100 MG/DL (70-100); POTASSIUM SERUM 4.6 MEQ/L (3.5-5.1); SODIUM LEVEL 132 MEQ/L (136-145)
== END ==
LOC: M WUC 10:36
PROVIDERS: ATTEND Nurse Practitioner Family
DX: I10 Essential (primary) hypertension (principal)

== ENCOUNTER → 2020-11-11 | Outpatient (REF) | payer MEDICARE, OTHER | LOC: M LAB REF 16:22 | PROVIDERS: ATTEND Specialist | DX: C86.0 Extranodal NK/T-cell lymphoma, nasal type (principal); J01.90 Acute sinusitis, unspecified; J32.4 Chronic pansinusitis ==

== ENCOUNTER → 2020-11-18 | Outpatient (CLI) | payer MEDICARE, OTHER ==
--- NOTE | 2020-11-18 16:07 | REPVR ---
PROCEDURE INFORMATION: Exam: CT Maxillofacial Without Contrast, Sinus Exam date and time: 11/18/2020 3:48 PM Age: 69 years old Clinical indication: Sinusitis; Type not specified; Additional info: Pansinusitis TECHNIQUE: Imaging protocol: CT Maxillofacial without contrast. Focus on the sinuses. Radiation optimization: All CT scans at this facility use at least one of these dose optimization techniques: automated exposure control; mA and/or kV adjustment per patient size (includes targeted exams where dose is matched to clinical indication); or iterative reconstruction. COMPARISON: CT Maxilofacial w/out contrast 02/29/2020 9:01 AM FINDINGS: Frontal sinuses: Normal. No air-fluid levels. Ethmoid air cells: Bilateral ethmoid sinus mucosal thickening asymmetric to the left. Sphenoid sinuses: Normal. No air-fluid levels. Maxillary sinuses: Inferior left maxillary sinus mucosal thickening . Evidence of prior left maxillary sinus surgery. Clinical correlation. Mild mucosal thickening of the right maxillary sinus. Nasal cavity/Septum: Polypoid thickening within the left nasal cavity. Mild deviation of the nasal septum to the left. Orbital cavity: Orbits are normal. Globes are unremarkable. Bones/joints: Unremarkable. Soft tissues: See "Maxillary sinuses" finding. IMPRESSION: Paranasal sinus mucosal disease slightly progressed from prior study. Electronically signed by: Dipak Zheng On 11/18/2020 16:06:53 PM
== END ==
LOC: M RAD 15:34
PROVIDERS: ATTEND Specialist
DX: J32.4 Chronic pansinusitis (principal)

== ENCOUNTER → 2020-11-28 | Outpatient (CLI) | payer MEDICARE, OTHER ==
[~2020-11-28] MED LIST changes: +LORA1TAB4 PO; +[UNRECOGNIZED DRUG - CODE] XX
--- NOTE | 2020-11-28 17:38 | RADONC.CN ---
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 He is seen today to coordinate his workup and discuss RT as part of a combined modality approach to treatment. Diagnosis/Treatment History Oncologic History History of right nasal BCC excised 06/19/[id number] Developed chronic left sinus congestion and intermittent pain as well as tearing of the left eye. In early 2020 he started to develop intermittent fevers to 103 degrees as well as night sweats. These were attributed to chronic sinusitis. MRI on 05/15/20 showed complete opacification of the left maxillary sinus as well as frontal and ethmoid involvement as well. He underwent septoplasty, left anterior ethmoidotomy, antrostomy and nasal polypectomy with Dr. Simpson on 06/09/20. Pathology was benign. The fevers and chronic sinus symptoms continued. He underwent endoscopy and left nasal biopsy with Dr. Guzman on 11/12/20 this time pathology revealed aspergillus as well as NK/T-cell lymphoma. Pathology: 06/09/20 Septoplasty FINAL DIAGNOSIS A Sinus contents, left ethmoid, removal: Fragments of sinonasal mucosa with granulation and chronic inflammation. No evidence for malignancy. B Sinus contents, left maxillary, removal: Sinonasal mucosa with mild chronic inflammation. No evidence for malignancy. C Nasal septum and polyps, removal: Fragments of sinonasal mucosa with chronic inflammation and granulation tissue. No evidence for malignancy. 06/11/20 - 1152 11/12/20 Left nasal mucosa biopsy Extranodal NK/ T-cell lymphoma, 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 Please see complete report from [facility] hematopathology department [id number], scanned in EMR under pathology module. FINAL DIAGNOSIS Left nasal mucosa, biopsy: Collections of fungal hyphae with 45 degree angle branching, suggestive of aspergillus species, pending culture results. No intact mucosa is noted and the fungal hyphae are noted in a background of inflamed and necrotic tissue. Many of the lymphoid cells in the necrotic debris appear atypical and are worrisome for a lymphoproliferative process/lymphoma, the case will be sent to [facility] hematopathology department for consultation and further work up, an addendum with result of consultation and possible lymphoma work up will follow. See note. 11/18/20 CT maxillofacial FINDINGS: Frontal sinuses: Normal. No air-fluid levels. Ethmoid air cells: Bilateral ethmoid sinus mucosal thickening asymmetric to the left. Sphenoid sinuses: Normal. No air-fluid levels. Maxillary sinuses: Inferior left maxillary sinus mucosal thickening . Evidence of prior left maxillary sinus surgery. Clinical correlation. Mild mucosal thickening of the right maxillary sinus. Nasal cavity/Septum: Polypoid thickening within the left nasal cavity. Mild deviation of the nasal septum to the left. Orbital cavity: Orbits are normal. Globes are unremarkable. Bones/joints: Unremarkable. Soft tissues: See "Maxillary sinuses" finding. IMPRESSION: Paranasal sinus mucosal disease slightly progressed from prior study. Interval History Ed is here with his daughter. Since biopsy he has been having less intense fevers, to 100 degrees (previously as high as 103), and less intense JACOB. He has been irrigating his nose with amphotericin B. This seems to be helpful. He is not on any PO antifungals. He has some degree of constant fatigue which has persisted. He denies any weight loss. 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 He has watering of the left eye which is intractable at time and is triggered with positional changes. He has no pain in the face or neck today. He has no epistaxis or bleeding PO. He denies hearing loss. Past Medical History: Anxiety Sinusitis COVID infection x 2 BALAJI HTN HPL CAD Past Surgical History: CABG 2012 Right knee arthoscopy Family History: Mother-AML (in her 70s-) Social History: 50+ pack year former smoker Drinks 4 beers per week Allergies / Meds Allergies: Coded Allergies: latex (Verified Allergy, Unknown, BLISTERS, 06/09/20) HIVES clarithromycin (Verified Adverse Reaction, Unknown, DIZZY, 06/09/20) zolpidem (Verified Adverse Reaction, Unknown, CONFUSION, 06/09/20) Home Meds Active Scripts Oxycodone/Acetaminophen (Oxycodone-Acetaminophen 5-325) 1 Each Tablet, 1 TAB PO Q4HP PRN for PAIN MDD 6, #20 TAB Prov:MART REYNOSO MD 06/09/20 Doxycycline Monohydrate (Doxycycline) 100 Mg Capsule, 1 CAP PO BID, #20 CAP Prov:MART REYNOSO MD 06/09/20 Reported Medications Amoxicillin/Potassium Clav (Amox-Clav 875-125 mg Tablet) 1 Each Tablet, 1 EA PO BID 06/03/20 Prednisone (Prednisone) 20 Mg Tablet, 20 MG PO DAILY 06/03/20 Aspirin (Aspirin EC) 81 Mg Tablet.dr, 81 MG PO DAILY 06/03/20 Simvastatin (Simvastatin) 40 Mg Tablet, 40 MG PO QHS 06/03/20 Omeprazole (Omeprazole) 40 Mg Capsule.dr, 40 MG PO DAILY 06/03/20 Lisinopril (Lisinopril) 40 Mg Tablet, 40 MG PO DAILY 06/03/20 Paroxetine (Paroxetine HCl) 30 Mg Tablet, 30 MG PO DAILY 06/03/20 Amlodipine Besylate (Amlodipine Besylate) 10 Mg Tablet, 10 MG PO DAILY 06/03/20 Doxazosin Mesylate (Doxazosin Mesylate) 4 Mg Tablet, 4 MG PO DAILY 06/03/20 Metoprolol Tartrate (Metoprolol Tartrate) 100 Mg Tablet, 100 MG PO BID 06/03/20 Alprazolam (Alprazolam) 0.25 Mg Tab, 0.25 MG PO Q8HP PRN for ANXIETY, TAB 07/17/13 Trazodone HCl (Trazodone HCl) 50 Mg Tab, 50 MG PO QPM, TAB 07/17/13 Review of Systems Constitutional: Reports: Fever, Night Sweats, Fatigue; Denies: Weight Loss Eyes: Denies: Pain, Vision change HEENT: Reports: Sinus Congestion; Denies: Head Aches, Ear Pain, Sore Throat Skin: Denies: Rash Pulmonary: Denies: Dyspnea, Cough Cardiovascular: Denies: Chest Pain Gastrointestinal: Denies: Abdominal Pain Hematologic: Denies: Bruising, Bleeding Excessively, Enlarged Lymph Nodes Endocrine: Denies: Cold Intolerance Musculoskeletal: Denies: Neck pain, Back pain, Leg pain Neurological: Denies: Weakness, Numbness Psych: Reports: Mood Normal Vital Signs Ht 71" Wt 191.4 lbs T 98 P 67 RR 18 BP 148/77 O2 98% Pain 0 Fatigue 0 General Exam: Alert, Cooperative, No Acute Distress Eye Exam: PERRLA, Conjunctiva & lids normal, EOMI; Negative: Ptosis, Other Eye Symptoms (No epiphora ) ENT EXAM: Atraumatic, Pharynx Normal, Other ENT (He has a top full denture, bottom teeth are [place], no broken teeth or deep inclusions. He has pink oral mucosa without any discernible lesions. He has no lesions apparent in the visible portion of the oropharynx. He has no cervical adenopathy. Laryngeal crepitus intact. No supraclavicular adenopathy); Negative: Nares Patent (Left nare with mucus weeping) Chest Exam: Clear to auscultation, Normal air movement Heart Exam: Rate Normal, Regular Rhythm Abdomen Exam: Normal bowel sounds, Soft Extremity Exam: Negative: Edema Skin Exam: Nl turgor and temperature Neuro Exam: Normal Gait, Normal Speech, Cranial Nerves 3-12 NL Psych Exam: Mental status NL Other Physical Findings Nasopharyngolaryngoscopy: Ed provided verbal consent to be scoped. The right nare was patent the scope passed easily through the nasal passage. There were no lesions apparent. The right nasopharynx was clear, the posterior pharyngeal wall was clear. The oropharynx was entered. the right tongue base was nodular in appearance, with pale lymphoid tissue, one nodule appeared exophytic. No bleeding or ulceration noted. The left BOT was normal appearing. The visible portions of the hypopharynx and supraglottic larynx were normal appearing. The vocal folds were without lesions and moved as expected with phonation. The scope was withdrawn and reintroduced in the left nare, there was yellow mucus present at the nasal orifice. The nasal passages were diligently examined, the mucosa was pink. The left nasopharynx was visualized and some inflamed red mucosa without active bleeding was noted over the posterior nasopharynx and posterior pharyngeal wall. The scope was slowly withdrawn. The inferior and middle conchae was visualized the prior antrostomy defect was visualized, I was able to orient the scope to view the maxillary sinus, but was unable to enter it. The visible portion of the maxillary sinus was lined with pale mucosa, no obvious masses ulceration in the visualized portion. The scope was withdrawn and the patient tolerated the procedure well. Diagnostic and Laboratory Diagnostic Review Radiologic images, relevant labs and pathology reports were personally reviewed and discussed with Mr. Olson. Assessment and Plan Impression Mr. 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 He is seen today to coordinate his workup and discuss RT as part of a combined modality approach to treatment. Stage Staging incomplete NK/T-cell lymphoma, nasal type Performance Status ECOG 1 Plan We had an extensive discussion with Mr. Olson regarding the diagnosis at hand and available therapeutic options. He has a good performance status. He has been having B-symptoms for 6-8 months with preserved weight and appetite. Unclear if these are truly related to the ly mphoma or co-morbid infection. Possibly the latter as will antifungal nasal irrigation he reports less frequent and lower grade fevers. His PINK score is 1 (intermediate) based on his age. We do not have EBV data yet to incorporate. With respect to his exam, he has rather unremarkable nasal findings today on nasopharyngoscopy, but he does have asymmetrical lymphoid appearing lesions at the right tongue base. He needs full workup the lymphoma. I discussed with them that this consists of MRI maxillofacial and neck, as well as a PET-CT for imaging. He also will have a full set of labs including CBC/CMP/LDH/uric acid/EBVtiter/EBVPCRquant/TSH/T4 and also markers of fungal infection. For his co-morbid aspergillus sinusitis, I will refer him to Dr. Ayoub in ID, as this infection may pose a barrier to his receipt of optimal treatment for the lymphoma and thus should be managed aggressively and hopefully completely resolved prior to any chemotherapy or RT. With respect to systemic therapy and BM biopsy I am referring him to Dr. Reagan at [facility] for at least an initial opinion as the regimens used for this disease are not ordinary and some require inpatient monitoring. I discussed that for stage I or II disease RT is always incorporated as part of curative treatment, @ [facility] the cases (2) I have treated used up-front SMILE followed by RT. In his case he may not be deemed appropriate for SMILE, and in that instance up- front chemoradiation may be the preferred approach. In general, I explained that RT is 5-6 weeks of daily treatment and chemotherapy is several cycles of varying duration. If this is more disseminated stage III or IV, then chemotherapy and palliative RT would be the preferred approach. I will coordinate with the relevant specialists and await the results of his staging workup prior to seeing him again. We will initiate RT at the appropriate time. We instructed the patient that if there were any questions,concerns or changes in clinical status in the interim to contact us. Recommendations Staging workup: PET-CT, MRI maxillofacial/neck Referrals: Dr. Ayoub (ID), Dr. Reagan ([facility] Lymphoma service) Labs: CBC/LDH/uric acid/EBVtiter/EBV PCR quant BM biopsy pending medical oncology referral Treatment will consist of combined modality therapy if stage I/II RT at appropriate time Billing Statement Total time of [72] minutes was spent preparing for the visit [6], obtaining HPI [16], examining the patient [8], reviewing diagnostic tests [4], discussing management options [18], coordinating care [10], and writing this note [10]. SHADI PIZARRO MD Nov 28, 2020 17:15
== END ==
LOC: M ONCR 13:58
PROVIDERS: ATTEND General Practice
DX: C84.9 Mature T/NK-cell lymphomas, unspecified (principal); B44.9 Aspergillosis, unspecified; E78.5 Hyperlipidemia, unspecified; F41.9 Anxiety disorder, unspecified; G47.33 Obstructive sleep apnea (adult) (pediatric); I10 Essential (primary) hypertension; I25.10 Atherosclerotic heart disease of native coronary artery without angina pectoris; J32.9 Chronic sinusitis, unspecified; Z79.82 Long term (current) use of aspirin; Z79.899 Other long term (current) drug therapy; Z86.16 Personal history of COVID-19; Z87.891 Personal history of nicotine dependence; Z88.1 Allergy status to other antibiotic agents; Z91.040 Latex allergy status; Z95.5 Presence of coronary angioplasty implant and graft
CPT/HCPCS: 31575; 36415; 80053; 83615; 84439; 84443; 84550; 86664; 86665; 87449; 87798; G0463

== ENCOUNTER → 2020-11-28 | Outpatient (CLI) | payer MEDICARE, OTHER ==
[~2020-11-28] MED LIST changes: +ACET1TAB55 PO; +AMPHOTERICIN B NARES; +AUGM875T28 PO; +CIPR500T39 PO; +FLUC200T4 PO; +HYDR-4467 PO; +LIDVISCBTL PO; +MOXI1TAB PO; -OMEP-221 PO; +OMEP40CA5 PO; +ONDA-84 PO; +OXYC1TAB23 PO; +PRED5TA PO; +PROC10TA5 PO; +RISATAB3 PO; +SODI1TAB6; +SPIR-10 PO; +VANC125C3 PO; +[UNRECOGNIZED DRUG - CODE] IV
[2020-11-28 15:08] LABS: ALBUMIN 3.4 GM/DL (3.2-5.2); ALT/SGPT 30 U/L (12-78); BILIRUBIN,TOTAL 0.5 MG/DL (0.2-1.0); BLOOD UREA NITROGEN 9 MG/DL (7-18); CALCIUM LEVEL 8.4 MG/DL (8.8-10.2); CARBON DIOXIDE LEVEL 27 MEQ/L (21-32); CHLORIDE LEVEL 96 MEQ/L (98-107); CREATININE FOR GFR 0.79 MG/DL (0.70-1.30); FREE T4 0.94 NG/DL (0.76-1.46); GLOMERULAR FILTRATION RATE > 60.0 (>49); GLUCOSE, FASTING 108 MG/DL (70-100); LDH LACTATE DEHYDROGENASE 162 U/L (87-241); POTASSIUM SERUM 4.3 MEQ/L (3.5-5.1); SODIUM LEVEL 131 MEQ/L (136-145); THYROID STIMULATING HORMONE 0.559 uIU/ML (0.358-3.740); TOTAL PROTEIN 6.6 GM/DL (6.4-8.2); URIC ACID 4.2 MG/DL (3.5-7.2)
[2020-12-03 19:08] LABS: EBV AB TO NUCLEAR ANTIGEN 81.1 U/mL (0.0-17.9); EBV VIRAL CAPSID AG IgG >600.0 U/mL (0.0-17.9); EBV VIRAL CAPSID AG IgM <36.0 U/mL (0.0-35.9); FUNGITELL, SERUM <31 pg/mL (<80)
[2020-12-09 09:07] LABS: EBV PCR QUAL WHOLE BLD Negative (Negative)
== END ==
LOC: M ONCR 13:52
PROVIDERS: ATTEND General Practice
DX: C86.0 Extranodal NK/T-cell lymphoma, nasal type (principal); E78.5 Hyperlipidemia, unspecified

== ENCOUNTER → 2020-12-03 | Outpatient (REF) | payer MEDICARE, OTHER ==
[~2020-12-03] MED LIST changes: -ACET1TAB55 PO; -AMPHOTERICIN B NARES; -AUGM875T28 PO; -CIPR500T39 PO; -FLUC200T4 PO; -HYDR-4467 PO; -LIDVISCBTL PO; -LORA1TAB4 PO; -MOXI1TAB PO; +OMEP-221 PO; -OMEP40CA5 PO; -ONDA-84 PO; -OXYC1TAB23 PO; -PRED5TA PO; -PROC10TA5 PO; -RISATAB3 PO; -SODI1TAB6; -SPIR-10 PO; -VANC125C3 PO; -[UNRECOGNIZED DRUG - CODE] IV; -[UNRECOGNIZED DRUG - CODE] XX
== END ==
LOC: M SFHCWAGY 16:24
PROVIDERS: ATTEND Internal Medicine Infectious Disease
DX: B44.9 Aspergillosis, unspecified (principal)

== ENCOUNTER → 2020-12-05 | Outpatient (CLI) | payer MEDICARE, OTHER ==
[~2020-12-05] MED LIST changes: +LORA1TAB4 PO; +[UNRECOGNIZED DRUG - CODE] XX
--- NOTE | 2020-12-05 14:51 | REP ---
INDICATION: LYMPHOMA. Chronic sinusitis. Recent left nasal biopsy positive for Aspergillus and lymphoma. COMPARISON: Comparison MRI study May 15, 2020. Comparison CT maxillofacial bones November 18, 2020. TECHNIQUE: Axial and coronal imaging planes include T1 and T2 weighted spin echo, turbo spin echo, and inversion recovery sequences. Gadolinium enhancement dose is 17 mL of ProHance. Post gadolinium enhanced T1 weighted fat sat axial and coronal scans are included. FINDINGS: Patient is status post left uncinectomy. There is a patent nasoantral window. There is moderate somewhat nodular mucosal thickening affecting the left maxillary sinus which is incompletely filled. Postcontrast images show thin peripheral enhancement of this tissue. No bony destructive lesion is seen. There is mild mucosal thickening in the inferior aspect of the right maxillary sinus. There are some mucosal thickening changes in the anterior aspect of the left ethmoid air cells. The frontal sinuses appear to be clear. Sphenoid sinus is clear. There is no evidence of mastoiditis on either side. No intraorbital mass lesion is seen. The deep facial is a is and skull base soft tissues are unremarkable. No intracranial mass effect is evident. Post gadolinium enhanced images show the above described peripheral enhancement in the nodular mucosal disease affecting the left maxillary sinus. In comparison with the May 2020 study, the postoperative changes are new. The nodular mucosal thickening in the left maxillary sinus is slightly more prominent. Previously, the left maxillary sinus was fluid-filled in addition to the mucosal thickening. The left ethmoid and right ethmoid sinus mucosal changes are improved compared to the prior study. The left frontal sinus is improved. IMPRESSION: Nodular mucosal thickening affecting the left maxillary and to a lesser extent left anterior ethmoid air cells. Postoperative changes in the left maxillary sinus. No bony destructive lesion, orbital mass, or intracranial abnormality. <Electronically signed by Pavan Selby > 12/05/20 [id number]
== END ==
LOC: M PLARAD 11:53
PROVIDERS: ATTEND General Practice
DX: C86.0 Extranodal NK/T-cell lymphoma, nasal type (principal)

== ENCOUNTER → 2020-12-08 | Outpatient (CLI) | payer MEDICARE, OTHER ==
--- NOTE | 2020-12-08 19:49 | REP ---
INDICATION: STAGING LYMPHOMA. Nasal biopsy November 12, 2020 revealed Aspergillus as well as NK/T-cell lymphoma, nasal type. History of fevers and night sweats. COMPARISON: Orbital facial MRI December 05, 2020. Maxillofacial CT study November 18, 2020. TECHNIQUE: Forty-five minutes following the intravenous injection of a 8.72 mCi dose of F-18 FDG, three-dimensional PET scintigraphy is acquired from the skull base to the proximal thighs. Triplanar noncontrast CT scanning is acquired through the same anatomic range for attenuation correction, and image registration with scan parameters optimized to minimize radiation exposure to the patient. PET scintigraphy and CT datasets were fused and displayed on a workstation with multiplanar and projection display capability. FINDINGS: There is an area of hypermetabolic uptake in the inferior nasal cavity abutting the floor of the nasal cavity and involving the nasal septum and apparently the inferior turbinates. This area of hypermetabolic uptake measures 6.0 cm anterior to posterior by 3.9 cm cranial to caudal by 3.3 cm right to left. Maximum standard uptake value is 12.29 in this region. The hypermetabolic uptake appears to extend to the medial inferior wall of the left maxillary sinus but no bony destruction is seen in the remaining sinus wall or in the hard palate. The patient is status post left uncinectomy. Head and neck soft tissues are otherwise unremarkable. No abnormal hanna hypermetabolic uptake is seen. In the thorax there is no abnormal hanna hypermetabolic uptake in the mediastinum or hilar structures. No abnormal pulmonary parenchymal hypermetabolic uptake is seen. No pulmonary mass or nodule is evident. In the abdomen and pelvis, normal hepatic, splenic, gastrointestinal, and genitourinary FDG accumulation is seen. There is a photopenic cyst in the left kidney. The spleen is normal in size. No abnormal gastrointestinal uptake is seen. Testicular uptake is normal and symmetric. IMPRESSION: Hypermetabolic uptake is seen in the inferior nasal cavity extending 6 cm anterior to posterior and apparently, involving the medial inferior wall of the left maxillary sinus. Otherwise negative PET scintigraphy. <Electronically signed by Pavan Selby > 12/08/201944
== END ==
LOC: M PLARAD 15:46
PROVIDERS: ATTEND General Practice
DX: C83.90 Non-follicular (diffuse) lymphoma, unspecified, unspecified site (principal)
CPT/HCPCS: 78815; A9552

== ENCOUNTER → 2020-12-09 | Outpatient (REF) | payer MEDICARE, OTHER | LOC: M LAB REF 16:17 | PROVIDERS: ATTEND Otolaryngology | DX: J32.8 Other chronic sinusitis (principal) ==

== ENCOUNTER → 2020-12-10 | Outpatient (CLI) | payer MEDICARE, OTHER ==
[~2020-12-10] MED LIST changes: +ISOVUE-300 61% 50ML VIAL As Ordered ONE; +LIDOCAINE 1% MDV 20ML VIAL As Ordered ONE; +MIDAZOLAM INJ 2MG/2ML VIAL (J2250 PER 1MG) As Ordered ONE; +NS 1,000 ML IV SCH; +ceFAZolin 1GM VIAL (J0690 PER 500MG) As Ordered ONE; +ceFAZolin SOD 2 GM in IV 1 EA IV ONE; +diphenhydrAMINE 50MG/ML VIAL (J1200) As Ordered ONE; +fentaNYL 100 MCG/2 ML INJECTION (J3010) As Ordered ONE
--- NOTE | 2020-12-10 10:25 | IRHP ---
[facility] IR Pre-Procedure H & P General Date of Service: Dec 10, 2020 Procedure: Same Day Surgery Interval History and Physical I have seen the patient and reviewed last H & P performed within 30 days. There is no significant interval change. History of Present Illness Chief Complaint The patient is a 70-year-old male admitted with a reason for visit of T-Cell Lymphoma. PRE-PROCEDURE DIAGNOSIS: Lymphoma HEART: Normal rate. LUNGS: Normal breathing at rest. ASA Classification ASA Classification: III-Severe systemic dis. Mallampati Score: II NPO: Yes Problems with prior sedation: No Obstructive Sleep Apnea: No Plan moderate sedation Allergies Coded Allergies: latex (Verified Allergy, Unknown, BLISTERS, 06/09/20) HIVES clarithromycin (Verified Adverse Reaction, Unknown, DIZZY, 06/09/20) zolpidem (Verified Adverse Reaction, Unknown, CONFUSION, 06/09/20) Home Medications Scheduled Amlodipine Besylate (Amlodipine Besylate), 10 MG PO DAILY, (Reported) Amphotericin B (Amphotericin B), 1 POW XX BID, (Reported) Aspirin (Aspirin EC), 81 MG PO DAILY, (Reported) Doxazosin Mesylate (Doxazosin Mesylate), 4 MG PO DAILY, (Reported) Lisinopril (Lisinopril), 40 MG PO DAILY, (Reported) Metoprolol Tartrate (Metoprolol Tartrate), 100 MG PO BID, (Reported) Omeprazole (Omeprazole), 40 MG PO DAILY, (Reported) Paroxetine (Paroxetine HCl), 30 MG PO DAILY, (Reported) Simvastatin (Simvastatin), 40 MG PO QHS, (Reported) Trazodone HCl (Trazodone HCl), 50 MG PO QPM, (Reported) Scheduled PRN Alprazolam (Alprazolam), 0.25 MG PO Q8HP PRN for ANXIETY, (Reported) Discontinued Medications Amoxicillin/Potassium Clav (Amox-Clav 875-125 mg Tablet), 1 EA PO BID, (Reported) Discontinued Reason: Pt states not taking Doxycycline Monohydrate (Doxycycline), 1 CAP PO BID Discontinued Reason: Pt states not taking Lorazepam (Lorazepam), 1 TAB PO DAILYPRN PRN for ANXIETY/AGITATION Discontinued Reason: Pt states not taking Oxycodone/Acetaminophen (Oxycodone-Acetaminophen 5-325), 1 TAB PO Q4HP PRN for PAIN Discontinued Reason: Pt states not taking Prednisone (Prednisone), 20 MG PO DAILY, (Reported) Discontinued Reason: Pt states not taking BLAIR STANFORD MD Dec 10, 2020 10:25
[2020-12-10 13:20] VITALS: BP 132/77
--- NOTE | 2020-12-11 14:21 | IRPON ---
IR Postoperative Note Date Of Procedure: Dec 10, 2020 Time Of Procedure: 16:00 IR Postoperative Note IR Ultrasound and fluoroscopy guided port placement IR Ultrasound of the neck. IR Moderate sedation. Clinical indication: Lymphoma. Physician: Dr. Lopez. Procedure: The patient was advised of the benefits, risks, and alternatives of the procedure and informed consent was obtained. A time-out was performed with verification of the patient's name, MRN, site of procedure and type of procedure to be performed. The patient was positioned in the supine position on the angiographic table. The site was prepped and draped in the usual sterile fashion. Moderate sedation was performed by the physician including the presence of an independent trained RN who assisted and monitored the patient's level of consciousness and physiologic status. Following the administration of fentanyl and Versed , the physician spent 45 minutes of continuous face to face time with the patient. Ultrasound of the neck reveals a patent and compressible right internal jugular vein. A temperer radiograph reveals no gross abnormality. The neck and anterior chest wall were anesthetized with lidocaine. The right internal jugular vein was accessed using a microintroducer needle under ultrasound guidance, via a lateral approach. An 018 wire was advanced into the superior vena cava, the needle was removed and a microsheath was placed. An Amplatz wire was then passed into the inferior vena cava. An incision at the internal jugular vein access site and anterior chest wall were made using a scalpel. An incision was made at the anterior chest wall. A small pocket was created using a combination of blunt and sharp dissection. A tunneling device was then used to pass the catheter from the pocket to the neck puncture site. An 8- [place] Angio Ewireless Smart power port was then positioned in the pocket. The catheter was then measured and cut. The introducer sheath was exchanged for a peel-away sheath. The catheter was passed through the peel-away sheath into the internal jugular vein and the peel-away sheath was removed. The port tip was positioned at the cavoatrial junction. The port was then accessed with a Plascencia needle. The port flushes and aspirates well. The puncture site in the neck was closed. The chest wall incision was then closed with 2-0 Vicryl and 4-0 Monocryl. Glue and Steri- Strips were applied. A sterile dressing was then applied. The patient tolerated the procedure well and was returned to the PRU in stable condition. Estimated blood loss: <5 ml. Complications: None. Conclusion: 1. Successful placement of an 8-[place] Angio dynamics Smart power port via the right internal jugular vein. The port is ready for immediate use. 2. Patient to follow up in IR clinic in 2 weeks. Thank you for this referral. BLAIR LOPEZ MD Dec 11, 2020 14:21
== END ==
LOC: M IRPRO 10:08
PROVIDERS: ATTEND Internal Medicine Hematology & Oncology
DX: C86.0 Extranodal NK/T-cell lymphoma, nasal type (principal); Z88.1 Allergy status to other antibiotic agents; Z88.8 Allergy status to other drugs, medicaments and biological substances; Z91.040 Latex allergy status
CPT/HCPCS: 36561; 99152; 99153; C1769; C1788; C1894; J0690; J1200; J1642; J1644; J2250; J3010

== ENCOUNTER → 2020-12-18 | Outpatient (REF) | payer MEDICARE, OTHER ==
[~2020-12-18] MED LIST changes: -ISOVUE-300 61% 50ML VIAL As Ordered ONE; -LIDOCAINE 1% MDV 20ML VIAL As Ordered ONE; -MIDAZOLAM INJ 2MG/2ML VIAL (J2250 PER 1MG) As Ordered ONE; -NS 1,000 ML IV SCH; -ceFAZolin 1GM VIAL (J0690 PER 500MG) As Ordered ONE; -ceFAZolin SOD 2 GM in IV 1 EA IV ONE; -diphenhydrAMINE 50MG/ML VIAL (J1200) As Ordered ONE; -fentaNYL 100 MCG/2 ML INJECTION (J3010) As Ordered ONE
[2020-12-18 12:31] LABS: HEMATOCRIT 33.4 % (42.0-52.0); HEMOGLOBIN 11.5 g/dl (13.5-17.5); MEAN CORPUSCULAR HEMOGLOBIN 30.8 pg (27.0-33.0); MEAN CORPUSCULAR HGB CONC 34.4 g/dl (32.0-36.5); MEAN CORPUSCULAR VOLUME 89.5 fl (80.0-96.0); PLATELET COUNT, AUTOMATED 255 10^3/uL (150-450); RED BLOOD COUNT 3.73 10^6/uL (4.30-6.10); WHITE BLOOD COUNT 5.3 10^3/uL (4.0-10.0)
[2020-12-18 12:54] LABS: ALBUMIN 3.6 GM/DL (3.2-5.2); ALT/SGPT 31 U/L (12-78); BILIRUBIN,TOTAL 0.5 MG/DL (0.2-1.0); BLOOD UREA NITROGEN 12 MG/DL (7-18); CARBON DIOXIDE LEVEL 27 MEQ/L (21-32); CHLORIDE LEVEL 95 MEQ/L (98-107); GLOMERULAR FILTRATION RATE > 60.0 (>49); GLUCOSE, FASTING 111 MG/DL (70-100); POTASSIUM SERUM 5.1 MEQ/L (3.5-5.1); SODIUM LEVEL 128 MEQ/L (136-145); TOTAL PROTEIN 7.5 GM/DL (6.4-8.2)
[2020-12-18 13:19] LABS: ERYTHROCYTE SEDIMENTATION RATE 16 mm/hr (0-20)
== END ==
LOC: M LAB REF 11:56
PROVIDERS: ATTEND Internal Medicine Infectious Disease
DX: B44.9 Aspergillosis, unspecified (principal)

== ENCOUNTER → 2020-12-26 | Outpatient (CLI) | payer MEDICARE, OTHER | LOC: M PLALAB 09:25 | PROVIDERS: ATTEND Internal Medicine Hematology & Oncology | DX: C86.0 Extranodal NK/T-cell lymphoma, nasal type (principal) ==

== ENCOUNTER → 2020-12-30 | Outpatient (POV) | payer MEDICARE, OTHER ==
[~2020-12-30] VITALS: Ht 180.3 cm; Wt 82.2 kg
[2020-12-30 10:12] VITALS: BP 133/66
--- NOTE | 2021-01-01 10:57 | IRPN ---
[facility] IR Progress Note IR Progress Note DATE: Dec 30, 2020 FOLLOW-UP: Status post port placement. Patient reports doing well. No fevers, chills, pain or discharge at site. ON EXAMINATION: Port site appears to be healing well. No redness, swelling, fluctuance or tenderness. IMPRESSION: Doing well status post port placement. No further follow-up scheduled unless initiated by patient and/or referring provider. Thank you for this referral Allergies Coded Allergies: latex (Verified Allergy, Unknown, BLISTERS, 06/09/20) HIVES clarithromycin (Verified Adverse Reaction, Unknown, DIZZY, 06/09/20) zolpidem (Verified Adverse Reaction, Unknown, CONFUSION, 06/09/20) VS,Fishbone, I+O VS, Fishbone, I+O Vital Signs Date Time Temp Pulse Resp B/P (MAP) Pulse Ox O2 Delivery O2 Flow Rate FiO2 12/30/20 10:12 98.4 78 20 133/66 (88) 96 Room Air BLAIR STANFORD MD Jan 01, 2021 10:57
== END ==
LOC: M IRPOV 10:05
PROVIDERS: ATTEND Radiology Diagnostic Radiology
DX: Z45.2 Encounter for adjustment and management of vascular access device (principal); Z88.1 Allergy status to other antibiotic agents; Z88.8 Allergy status to other drugs, medicaments and biological substances; Z91.040 Latex allergy status

== ENCOUNTER → 2020-12-31 | Outpatient (CLI) | payer MEDICARE, OTHER ==
[2020-12-31 11:12] LABS: HEMATOCRIT 32.6 % (42.0-52.0); HEMOGLOBIN 10.9 g/dl (13.5-17.5); MEAN CORPUSCULAR HEMOGLOBIN 30.9 pg (27.0-33.0); MEAN CORPUSCULAR HGB CONC 33.4 g/dl (32.0-36.5); MEAN CORPUSCULAR VOLUME 92.4 fl (80.0-96.0); PLATELET COUNT, AUTOMATED 242 10^3/uL (150-450); RED BLOOD COUNT 3.53 10^6/uL (4.30-6.10); WHITE BLOOD COUNT 16.6 10^3/uL (4.0-10.0)
[2020-12-31 11:27] LABS: INR 1.01; PROTHROMBIN TIME 13.7 SECONDS (12.7-14.5)
[2020-12-31 11:41] LABS: ALBUMIN 3.2 GM/DL (3.2-5.2); ALT/SGPT 45 U/L (12-78); BILIRUBIN,TOTAL 0.2 MG/DL (0.2-1.0); BLOOD UREA NITROGEN 16 MG/DL (7-18); CALCIUM LEVEL 8.6 MG/DL (8.8-10.2); CARBON DIOXIDE LEVEL 30 MEQ/L (21-32); CHLORIDE LEVEL 104 MEQ/L (98-107); CREATININE FOR GFR 0.74 MG/DL (0.70-1.30); GLOMERULAR FILTRATION RATE > 60.0 (>49); GLUCOSE, FASTING 114 MG/DL (70-100); POTASSIUM SERUM 4.5 MEQ/L (3.5-5.1); SODIUM LEVEL 137 MEQ/L (136-145); TOTAL PROTEIN 6.2 GM/DL (6.4-8.2)
[2020-12-31 11:43] LABS: ATYPICAL LYMPH 4 % (0-5); BASOPHILS 1 % (0-1); EOSINOPHILS 1 % (0-3); LYMPHOCYTES 7 % (16-44); MONOCYTES 8 % (0-5); NEUTROPHILS 73 % (28-66); PLATELET ESTIMATE NORMAL (NORMAL); POIKILOCYTOSIS 1+
== END ==
LOC: M ONCM 09:52
PROVIDERS: ATTEND Internal Medicine Hematology & Oncology
DX: C86.0 Extranodal NK/T-cell lymphoma, nasal type (principal)

== ENCOUNTER → 2021-01-06 | Outpatient (CLI) | payer MEDICARE, OTHER ==
--- NOTE | 2021-01-06 13:51 | REP ---
INDICATION: IZAIAH EDEMA PT NEEDS LABS AFTER US. COMPARISON: None. TECHNIQUE: Multiple ultrasonographic images of the deep venous structures of the bilateral lower extremity were obtained from the inguinal ligament to the ankle. Venous compression techniques, color doppler imaging, and augmentation techniques were also obtained where appropriate. As per the ACR guidelines the anterior tibial vein can not be effectively evaluated. Only compression techniques in the calf on the peroneal and posterior tibial veins was attempted/performed. FINDINGS: There is no abnormal echogenic material seen within any of the visualized deep venous structures that would suggest acute thrombosis. Coaptation is unremarkable throughout. Doppler interrogation shows an expected response to respiratory variability and augmentation in the thigh. Compression techniques in the calf were unobtainable. The color flow images show what appears to be a normal vascular pattern throughout the thigh. IMPRESSION: There is no ultrasonographic evidence of deep venous thrombosis involving any of the visualized deep venous structures of the bilateral lower extremity as described above. Due to technical parameters calf vein DVT can not be ruled out. <Electronically signed by Brandt Loomis > 01/06/21 [id number]
[2021-01-06 14:03] LABS: HEMATOCRIT 35.9 % (42.0-52.0); HEMOGLOBIN 11.9 g/dl (13.5-17.5); MEAN CORPUSCULAR HEMOGLOBIN 30.1 pg (27.0-33.0); MEAN CORPUSCULAR HGB CONC 33.1 g/dl (32.0-36.5); MEAN CORPUSCULAR VOLUME 90.9 fl (80.0-96.0); PLATELET COUNT, AUTOMATED 132 10^3/uL (150-450); RED BLOOD COUNT 3.95 10^6/uL (4.30-6.10); WHITE BLOOD COUNT 20.3 10^3/uL (4.0-10.0)
[2021-01-06 14:32] LABS: ALBUMIN 3.4 GM/DL (3.2-5.2); ALT/SGPT 51 U/L (12-78); BILIRUBIN,TOTAL 0.9 MG/DL (0.2-1.0); BLOOD UREA NITROGEN 15 MG/DL (7-18); CALCIUM LEVEL 8.7 MG/DL (8.8-10.2); CARBON DIOXIDE LEVEL 28 MEQ/L (21-32); CHLORIDE LEVEL 105 MEQ/L (98-107); GLOMERULAR FILTRATION RATE > 60.0 (>49); GLUCOSE, FASTING 117 MG/DL (70-100); POTASSIUM SERUM 4.4 MEQ/L (3.5-5.1); SODIUM LEVEL 139 MEQ/L (136-145); TOTAL PROTEIN 6.1 GM/DL (6.4-8.2)
== END ==
LOC: M RAD 12:47
PROVIDERS: ATTEND General Practice
DX: C86.0 Extranodal NK/T-cell lymphoma, nasal type (principal); R60.0 Localized edema; B44.9 Aspergillosis, unspecified

== ENCOUNTER → 2021-01-06 | Outpatient (CLI) | payer MEDICARE, OTHER ==
[2021-01-06 14:03] LABS: HEMATOCRIT 35.7 % (42.0-52.0); HEMOGLOBIN 12.1 g/dl (13.5-17.5); MEAN CORPUSCULAR HEMOGLOBIN 30.9 pg (27.0-33.0); MEAN CORPUSCULAR HGB CONC 33.9 g/dl (32.0-36.5); MEAN CORPUSCULAR VOLUME 91.3 fl (80.0-96.0); PLATELET COUNT, AUTOMATED 126 10^3/uL (150-450); RED BLOOD COUNT 3.91 10^6/uL (4.30-6.10); WHITE BLOOD COUNT 19.2 10^3/uL (4.0-10.0)
[2021-01-06 14:18] LABS: INR 1.09; PROTHROMBIN TIME 14.5 SECONDS (12.7-14.5)
[2021-01-06 14:37] LABS: ALBUMIN 3.6 GM/DL (3.2-5.2); ALT/SGPT 52 U/L (12-78); BILIRUBIN,TOTAL 0.9 MG/DL (0.2-1.0); BLOOD UREA NITROGEN 15 MG/DL (7-18); CALCIUM LEVEL 8.9 MG/DL (8.8-10.2); CARBON DIOXIDE LEVEL 28 MEQ/L (21-32); CHLORIDE LEVEL 103 MEQ/L (98-107); CREATININE FOR GFR 0.75 MG/DL (0.70-1.30); GLOMERULAR FILTRATION RATE > 60.0 (>49); GLUCOSE, FASTING 117 MG/DL (70-100); LIPASE 365 U/L (73-393); POTASSIUM SERUM 4.3 MEQ/L (3.5-5.1); SODIUM LEVEL 137 MEQ/L (136-145); TOTAL PROTEIN 6.4 GM/DL (6.4-8.2)
[2021-01-06 16:17] LABS: ATYPICAL LYMPH 1 % (0-5); LYMPHOCYTES 11 % (16-44); MONOCYTES 1 % (0-5); MYELOCYTES 1 % (0-0); NEUTROPHILS 84 % (28-66)
[2021-01-06 16:18] LABS: PLATELET ESTIMATE DECREASED (NORMAL)
== END ==
LOC: M LAB 12:38
PROVIDERS: ATTEND Internal Medicine Hematology & Oncology
DX: C86.0 Extranodal NK/T-cell lymphoma, nasal type (principal)

== ENCOUNTER → 2021-01-06 | Outpatient (CLI) | payer MEDICARE, OTHER | LOC: M LAB 12:43 | PROVIDERS: ATTEND Internal Medicine Infectious Disease | DX: B44.9 Aspergillosis, unspecified (principal) ==

== ENCOUNTER → 2021-01-20 | Outpatient (CLI) | payer MEDICARE, OTHER ==
[2021-01-20 15:25] LABS: HEMATOCRIT 32.5 % (42.0-52.0); HEMOGLOBIN 10.4 g/dl (13.5-17.5); MEAN CORPUSCULAR HEMOGLOBIN 31.2 pg (27.0-33.0); MEAN CORPUSCULAR VOLUME 97.6 fl (80.0-96.0); PLATELET COUNT, AUTOMATED 271 10^3/uL (150-450); RED BLOOD COUNT 3.33 10^6/uL (4.30-6.10); WHITE BLOOD COUNT 26.6 10^3/uL (4.0-10.0)
[2021-01-20 15:45] LABS: ALBUMIN 3.1 GM/DL (3.2-5.2); ALT/SGPT 170 U/L (12-78); AMYLASE 58 U/L (25-115); BILIRUBIN,TOTAL 1.4 MG/DL (0.2-1.0); BLOOD UREA NITROGEN 5 MG/DL (7-18); CALCIUM LEVEL 8.7 MG/DL (8.8-10.2); CARBON DIOXIDE LEVEL 30 MEQ/L (21-32); CHLORIDE LEVEL 95 MEQ/L (98-107); CREATININE FOR GFR 0.74 MG/DL (0.70-1.30); GLOMERULAR FILTRATION RATE > 60.0 (>49); GLUCOSE, FASTING 87 MG/DL (70-100); LIPASE 245 U/L (73-393); SODIUM LEVEL 133 MEQ/L (136-145); TOTAL PROTEIN 6.6 GM/DL (6.4-8.2)
[2021-01-20 15:50] LABS: PROTHROMBIN TIME 13.6 SECONDS (12.7-14.5)
[2021-01-20 16:52] LABS: BASOPHILS 1 % (0-1); LYMPHOCYTES 7 % (16-44); MONOCYTES 7 % (0-5); NEUTROPHILS 84 % (28-66); PLATELET ESTIMATE NORMAL (NORMAL)
== END ==
LOC: M PLALAB 12:17
PROVIDERS: ATTEND Internal Medicine Hematology & Oncology
DX: C84.79 Anaplastic large cell lymphoma, 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, extranodal and solid organ sites (principal); C84.9 Mature T/NK-cell lymphomas, unspecified; E78.1 Pure hyperglyceridemia

== ENCOUNTER 2021-01-23 10:55 | Emergency (ER) | payer MEDICARE, OTHER ==
[~2021-01-23] VITALS: Ht 180.3 cm; Wt 85.9 kg
--- OUTSIDE RECORDS SUMMARY | 2021-01-23 11:06 | CCD | Continuity of Care Document ---
Author Author Ed BAR Organization Unknown Address [address] [place] [address], [address] [place] [address] Phone [phone] Care Team Providers Care Wrecking Supervisor Name Role Phone Nohemy Kapoor AUTM [phone] AUTM Unavailable Central Scheduling AUTM [phone] Walt Zhang M.D. AUTM [phone] Maycol Lund M.D. AUTM [phone] Problems Active Problems Provider Date Essential hypertension Baltazar Parmar JR, MD Onset: 12/14/19 17 Chronic frontoethmoidal sinusitis Bryson Guzman MD Onset: 11/19/2020 Social History Type Date Description Comments Sex Unknown ETOH Use Occasionally consumes alcohol ETOH Use 3 A Day Recreational Drug Use Denies Drug Use Tobacco Use Start: 03/14/69 End: 03/14/89 Quit 19 90, 2 ppd for 15 yrs Smoking Status Reviewed: 09/09/20 Quit 1989, 2 ppd f or 15 yrs Allergies and adverse reactions Active Allergies Criticality Reaction | Severity Comments Date Latex Unable to assess criticality 12/13/2016 Biaxin Unable to assess criticality 04/01/2020 Medications Active Medications SIG Qnty Indications Ordering Provide r Date CPAP Device 12cm lcw Walt Zhang MD 07/18/2020 Stiolto Respimat 2.5-2.5mcg/Act Ae rosol 2 puffs once daily 12gm Walt Zhang MD 02/17/2019 Xopenex HFA 45mcg/Act Aerosol 2 puffs qid/prn 45gm Walt Zhang MD 02/17/2019 Xyzal Allergy 24HR 5mg Tablets 1 by mouth every day 90tabs Walt Zhang MD 02/17/2019 Aerochamber Plus Misc as directed w/ hfa 1units Walt Zhang MD 05/18/2018 Lisinopril 40mg Tablets 1 by mouth every day Unknown Voriconazole 200mg Tablets Take One Tablet By Mouth Three Times A Day For 2 Days Then Two Times A Day Unknown Ondansetron HCL 8mg Tablets Take One Tablet By Mouth Every 8 Hours as Needed For Nausea And Vomiting For Up Unknown Prochlorperazine Maleate 10mg Tabl ets Take One Tablet By Mouth Every 6 Hours as Needed Unkn own Hydrocortisone 5mg Tablets 3 po qam, 2 po qpm Unknown Flonase Allergy Relief 50mcg/Act Suspension 2 sprays per nostril daily Unknown 0 Metoprolol Tartrate 100mg Tablets 1 by mouth twice a day Unknown Paxil 30mg Tablets 1 by mo uth every day Unknown Norvasc 10mg Tablets 1 by mouth every day Unknown Simvastatin 20mg Tablets 1 by mouth every day Unknown Alprazolam 0.25mg Tablets 1 t ab prn Unknown Trazodone HCL 50mg Tablets 1 tab by mouth every day at bedtime Unknown Doxazosin Mesylate 4mg Tablets 1 tab by mouth every day 30tabs Unknown Aspir-[address] 1 tab by mouth every day Unknown Prilosec OTC 40mg Tablets DR 1 tab by mouth every day Unknown History Medications Prednisone 10mg Tablets 40mg po qd x 4 days then 30mg qd x 4 days then 20mg qd x 4 days then 10mg qd x 4 days and stop 40tabs Walt Zhang MD 10/10/2020 - Levofloxacin 250mg Tablets 1 tab by mouth every day for 14 days 14tabs Alec Mcleod MD 021 - 10/23/2020 Mupirocin Calcium 2% Cream 1 teaspoon mixed with salt packet daily as directed 60gm Alec Mcleod MD 09/22/2020 - 11/01/2020 Cipro 500mg Tablets 1 by mouth twice a day 30taazalea Mcleod MD 09/22/2020 - 10/07/2020 Prednisone 10mg Tablets 40mg po qd x 4 days then 30mg qd x 4 days then 20mg qd x 4 days then 10mg qd x 4 days and stop 40taazalea Zhang MD 08/21/2020 - 021 Cefuroxime Axetil 500mg Tablets 1 by mouth twice a day 20taazalea Zhang MD 08/21/2020 - 08/31/2020 Immunizations CPT Code Status Date Vaccine Lot # [id number] Given 12/19/2018 Flublock, Quadrivalent Vital Signs Date Vital Result Comment 01/08/2021 10:04am Height 68 inches 5'8" Weight 190.00 lb BMI (Body Mass Index) 28.9 kg/m2 [place] Body Weight 154 lb Weight 86.184 kg BSA (Body Surface Area) 2.00 m2 12/09/2020 11:18am BP Systolic 118 mmHg BP Diastolic 80 mmHg Heart Rate 67 /min O2 % BldC Oximetry 98 % Body Temperature 99.9 F Height 68 inches 5'8" Weight 192.00 lb BMI (Body Mass Index) 29.2 kg/m2 [place] Body Weight 154 lb Weight 87.091 kg BSA (Body Surface Area) 2.01 m2 Results Test Acquired Date Facility Test Result H/L Range Note Nasal & Sinus Cult Gmstain 12/09/2020 [facility] Main Lab [address] [place] [phone] Gram Stain (SEE NOTE) Normal 1 Nasal And Sinus Culture FULL REPORT IN L <SEE NOTE> Normal 2 Laboratory test finding 11/11/2020 [facility] Main Lab [address] [place] [address] [phone] Nasal And Sinus Culture FULL REPORT IN L <SEE NOTE> N ormal 3 Laboratory test finding 11/11/2020 [facility] Main Lab [address] [place] [address] [phone] Pathology Request For Service (SEE NOTE) 4 Laboratory test finding 11/11/2020 [facility] Lab [address] [place] [address] [phone] Pathology Request For Service (SEE NOTE) 5 Laboratory test finding 09/22/2020 [facility] Main Lab [address] [phone] Nasal And Sinus Culture FULL REPORT IN L <SEE NOTE> N ormal 6 1 NO CELLS SEEN NO ORGANISMS SEEN 2 FULL REPORT IN LAB NOTES ([facility] and [facility]). NO NORMAL TIGIST ISOLATED ORGANISM 1: STENOTROPHOMONAS MALTOPHILIA QUANTITY OF GROWTH MODERATE ORGANISM 1: STENOTROPHOMONAS MALTOPHILIA STENOTROPHOMONAS MALTOPHILIA: REACTION TRIMETHOPRIM/SULFAMETHOXAZOLE IV 160mg TMP & 800mg SMXq6h <=20 S TRIMETHOPRIM/SULFAMETHOXAZOLE PO Bactrim DS Bid <=20 S LEVOFLOXACIN IV 500mg qd 1 S LEVOFLOXACIN PO 250mg qd 1 S LEVOFLOXACIN PO 500mg qd 1 S 3 FULL REPORT IN LAB NOTES ([facility] and [facility]). NORMAL TIGIST PRESENT 4 FINAL DIAGNOSIS Left nasal mucosa, biopsy: Collections of fungal hyphae with 45 degree angle branching, suggestive of aspergillus species, pending culture results. No intact mucosa is noted and the fungal hyphae are noted in a background of inflamed and necrotic tissue. Many of the lymphoid cells in the necrotic debris appear atypical and are worrisome for a lymphoproliferative process/lymphoma, the case will be sent to [facility] hematopathology department for consultation and further work up, an addendum with result of consultation and lymphoma work up will follow. See note. Note: Immunostains for CD20 and CD3 were performed, and the atypical cells appear to stain with CD20(B-cell marker) rather than CD3(T-cell marker). Comment: Presence of fungal hyphae and concern for malignancy/lymphoma, was called to ENT, Dr. Guzman. 11/14/2020908 CLINICAL DIAGNOSIS Mucosal biopsy 11/12/20201437 GROSS DIAGNOSIS Received in formalin labeled "Whitney Ed and designated left nasal mucosa" is a 0.9 x 0.6 x 0.2 cm. portion of pale marr soft tissue. Sectioned all in one. 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 Please see complete report from [facility] hematopathology department [id number], scanned in EMR under pathology module. 11/20/20201835 Addendum Signed____ Genesis La MD 11/20/20201840 FINAL DIAGNOSIS Left nasal mucosa, biopsy: Collections of fungal hyphae with 45 degree angle branching, suggestive of aspergillus species, pending culture results. No intact mucosa is noted and the fungal hyphae are noted in a background of inflamed and necrotic tissue. Many of the lymphoid cells in the necrotic debris appear atypical and are worrisome for a lymphoproliferative process/lymphoma, the case will be sent to [facility] hematopathology department for consultation and further work up, an addendum with result of consultation and possible lymphoma work up will follow. See note. Note: Immunostains for CD20 and CD3 were performed, and the atypical cells appear to stain with CD20(B-cell marker) rather than CD3(T-cell marker). Comment: Presence of fungal hyphae and concern for malignancy/lymphoma, was called to ENT, Dr. Guzman. 11/14/2020925 CLINICAL DIAGNOSIS Mucosal biopsy 11/12/20201437 GROSS DIAGNOSIS Received in formalin labeled "Ed Olson and designated left nasal mucosa" is a 0.9 x 0.6 x 0.2 cm. portion of pale marr soft tissue. Sectioned all in one. - 11/12/20201437 Signed Genesis La MD 11/14/2020925 6 FULL REPORT IN LAB NOTES ([facility]C W and [facility]). NORMAL TIGIST PRESENT ORGANISM 1: ENTEROBACTER AMNIGENUS 2 QUANTITY OF GROWTH FEW Susceptibility standards are not available for Enterobacter amnigenus. ORGANISM 2: KLEBSIELLA OXYTOCA QUANTITY OF GROWTH FEW ORGANISM 1: ENTEROBACTER AMNIGENUS 2 ORGANISM 2: KLEBSIELLA OXYTOCA KLEBSIELLA OXYTOCA: REACTION TRIMETHOPRIM/SULFAMETHOXAZOLE IV 160mg TMP & 800mg SMXq6h <=20 S TRIMETHOPRIM/SULFAMETHOXAZOLE PO Bactrim DS Bid <=20 S AMPICILLIN IV 500mg q6h >=32 R AMPICILLIN PO 500mg q6h fasting >=32 R GENTAMICIN IV 80mg q8h <=1 S CEFAZOLIN IV 1gm q8h <=4 S LEVOFLOXACIN IV 500mg qd <=0.12 S LEVOFLOXACIN PO 250mg qd <=0.12 S LEVOFLOXACIN PO 500mg qd <=0.12 S TOBRAMYCIN IV 80mg q8h <=1 S CEFTRIAXONE IV 1gm q24h <=1 S CEFTAZIDIME IV 1gm q8h <=1 S AMPICILLIN/SULBACTAM IV 1.5g q6h 16 I PIPERACILLIN/TAZOBACTAM IV 2.25 gm q6h <=4 S AZTREONAM IV 1gm q8h <=1 S ERTAPENEM IV 1gm qd <=0.5 S MEROPENEM IV 1 gm q8h <=0.25 S MEROPENEM IV 500 mg q8h <=0.25 S TIGECYCLINE IV 50mg q12h <=0.5 S CEFEPIME IV 1 gm q12h <=1 S CEFEPIME IV 2 gm q12h <=1 S EXTD BRD SPCTRM BETA LACTAMASE IV NEGATIVE FOR ESBL Procedures Date Code Description Status 12/09/2020 27205 Office/Outpatient Established Lo w MDM 20-29 Min Completed 12/09/2020 85639 Endoscopy Nasal/Sinus Surgical W /BX/Polypectomy/Debridement Completed 12/02/2020 17197 Office/Outpatient Established Lo w MDM 20-29 Min Completed 12/02/2020 48588 Endoscopy Nasal/Sinus Surgical W /BX/Polypectomy/Debridement Completed 11/19/2020 68594 Office/Outpatient Established Mo d MDM 30-39 Min Completed 11/19/2020 01425 Endoscopy Nasal/Sinus Surgical W /BX/Polypectomy/Debridement Completed 11/11/2020 90696 Endoscopy Nasal Diagnostic Compl eted 10/27/2020 11969 Endoscopy Nasal Diagnostic Compl eted 10/10/2020 19281 Diffusing Capacity Completed 10/10/2020 25942 Plethysmography Determination Adry ng Volumes & Per Airway Resist Completed 10/10/2020 93290 Spirometry Completed 10/09/2020 31414 Office/Outpatient Established Lo w MDM 20-29 Min Completed 09/22/2020 59077 Office/Outpatient Established Mo d MDM 30-39 Min Completed 09/22/2020 87280 Endoscopy Nasal Diagnostic Compl eted 09/09/2020 33018 Office/Outpatient Established Mo d MDM 30-39 Min Completed 09/09/2020 39013 Spirometry Completed Medical Devices Description No Information Available Encounters Type Date Location Provider Dx Diagnosis Office Visit 12/09/2020 11:30a [facility] [place] J32.8 Other chronic sinusitis Office Visit 12/02/2020 8:30a [facility] [place] J32.8 Other chronic sinusitis Office Visit 11/19/2020 10:45a [facility] [place] J32.8 Other chronic sinusitis Office Visit 10/09/2020 10:30a [facility] Alec Mcleod MD J01.90 Acute sinusitis, unspecified Office Visit 09/22/2020 1:30p [facility] Alec Mcleod MD J01.90 Acute sinusitis, unspecified Office Visit 09/09/2020 10:30a [facility] Pulmonary/Thoracic Lawralfreda Zhang MD G47.33 Obstructive sleep apnea (adult) (pediatr ic) J44.9 Chronic obstructive pulmonar y disease, unspecified Z87.891 Personal history of nicotine dependence Assessments Date Code Description Provider 01/08/2021 J32.8 Other chronic sinusitis Hal dunn II, PA-C 12/09/2020 J32.8 Other chronic sinusitis Bryson richardson MD 12/02/2020 J32.8 Other chronic sinusitis Bryson richardson MD 11/19/2020 J32.8 Other chronic sinusitis Bryson richardson MD 11/11/2020 J32.4 Chronic pansinusitis Alec ballard MD 10/27/2020 J01.90 Acute sinusitis, unspecified Krishan Mcleod MD 10/10/2020 J44.9 Chronic obstructive pulmonary di sease, unspecified Pulmonary Lab 10/09/2020 J01.90 Acute sinusitis, unspecified Krishan Mcleod MD 09/22/2020 J01.90 Acute sinusitis, unspecified Krishan Mcleod MD 09/09/2020 G47.33 Obstructive sleep apnea (adult) (pediatric) Walt Zhang MD 09/09/2020 J44.9 Chronic obstructive pulmonary di sease, unspecified Walt Zhang MD 09/09/2020 Z87.891 Personal history of nicotine dep endence Walt Zhang MD Plan of Treatment Future Appointment(s):* 02/26/2021 9:45 am - Walt Zhang MD at [facility] Pulmonary/Thoracic 01/08/2021 - Hal Bar II, PA-C* J32.8 Other chronic sinusitis Functional Status Description No Information Available Mental Status Description No Information Available Referrals Refer to Dr Reason for Referral Status Appt Date Maycol Lund M.D. Needs urgent eval for Extran odal NK/T-CELL lymphoma..nasal type Created [facility] [address] [place], [place] [address] [phone]
--- OUTSIDE RECORDS SUMMARY | 2021-01-23 11:06 | CCD | Continuity of Care Document ---
Author Author Ed GUZMAN MD Organization Unknown Address [address] [place] [address], [address] [place] [address] Phone [phone] Care Team Providers Care Business Relationship Manager Name Role Phone Nohemy Kapoor AUTM [phone] AUTM Unavailable Central Scheduling AUTM [phone] Walt Zhang M.D. AUTM [phone] Maycol Lund M.D. AUTM [phone] Problems Active Problems Provider Date Essential hypertension [...] w/ hfa 1units Walt Zhang MD 05/18/2018 Norvasc 10mg Tablets 1 by mouth every day Unknown Flonase Allergy Relief 50mcg/Act Suspension 2 sprays per nostril daily Unknown 0 Metoprolol Tartrate 100mg Tablets 1 by mouth twice a day Unknown Lisinopril 40mg Tablets 1 by mouth every day Unknown Paxil 30mg Tablets 1 by mo uth every day Unknown Simvastatin 20mg Tablets 1 [...] stop 40tabs Walt Zhang MD 10/10/2020 - 021 Levofloxacin 250mg Tablets 1 tab by mouth every day for 14 days 14tabs Alec Mcleod MD 021 - 10/23/2020 Mupirocin Calcium 2% Cream 1 teaspoon mixed with salt packet daily as directed 60gm Alec Mcleod MD 09/22/2020 - 11/01/2020 Cipro 500mg Tablets 1 by mouth twice a day 30tabs Alec Mcleod MD 09/22/2020 - 10/07/2020 Prednisone 10mg Tablets 40mg po qd x 4 days then 30mg qd x 4 days then 20mg qd x 4 days then 10mg qd x 4 days and stop 40tabs Walt Zhang MD 08/21/2020 - 021 Cefuroxime Axetil 500mg Tablets 1 by mouth twice a day 20tabs Walt Zhang MD 08/21/2020 - 08/31/2020 Immunizations CPT Code Status Date Vaccine Lot # [id number] Given 12/19/2018 Flublock, Quadrivalent Vital Signs Date Vital Result Comment 12/09/2020 11:18am BP Systolic 118 mmHg BP Diastolic 80 mmHg Heart Rate 67 /min O2 % BldC Oximetry 98 % Body Temperature 99.9 F Height 68 inches 5'8" Weight 192.00 lb BMI (Body Mass Index) 29.2 kg/m2 [place] Body Weight 154 lb Weight 87.091 kg BSA (Body Surface Area) 2.01 m2 12/02/2020 8:25am BP Systolic 128 mmHg BP Diastolic 70 mmHg Heart Rate 68 /min O2 % BldC Oximetry 97 % Body Temperature 99.4 F Height 68 inches 5'8" Weight 193.00 lb BMI (Body Mass Index) 29.3 kg/m2 [place] Body Weight 154 lb Weight 87.545 kg BSA (Body Surface Area) 2.01 m2 Results Test Acquired Date Facility Test Result H/L Range Note Nasal & Sinus Cult Gmstain 12/09/2020 [facility] Main Lab [address] [place] [address] [phone] Gram Stain (SEE NOTE) Normal 1 Nasal And Sinus Culture FULL REPORT IN L <SEE NOTE> Normal 2 Laboratory test finding 11/11/2020 [facility] Lab [address] [place] [address] [phone] Nasal And Sinus Culture FULL REPORT IN L <SEE NOTE> N ormal 3 Laboratory test finding 11/11/2020 [facility] Lab [address] [place] [address] [phone] Pathology Request For Service (SEE NOTE) 4 Laboratory test finding 11/11/2020 [facility] Main Lab [address] [place] [address] [phone] Pathology Request For Service (SEE NOTE) 5 Laboratory test finding 09/22/2020 [facility] Lab [address] [place] [address] [phone] Nasal And Sinus Culture FULL REPORT IN [...] process/lymphoma, the case will be sent to [facility] hematopathology department for consultation and further [...] 11/12/20201437 GROSS DIAGNOSIS Received in formalin labeled "Olson Ed and designated left nasal mucosa" is a 0.9 x 0.6 x 0.2 cm. portion of pale marr soft tissue. Sectioned all in one. 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 Please see complete report from [facility] hematopathology department [id number], scanned in EMR under pathology module. 11/20/20201835 Addendum Signed____ Genesis La MD 11/20/2020 1841 FINAL DIAGNOSIS Left nasal mucosa, biopsy: Collections [...] process/lymphoma, the case will be sent to [facility] hematopathology department for consultation and further [...] ESBL Procedures Date Code Description Status 12/09/2020 53571 Office/Outpatient Established Lo w MDM 20-29 Min Completed 12/09/2020 39555 Endoscopy Nasal/Sinus Surgical W /BX/Polypectomy/Debridement Completed 12/02/2020 15269 Office/Outpatient Established Lo w MDM 20-29 Min Completed 12/02/2020 13210 Endoscopy Nasal/Sinus Surgical W /BX/Polypectomy/Debridement Completed 11/19/2020 95177 Office/Outpatient Established Mo d MDM 30-39 Min Completed 11/19/2020 83627 Endoscopy Nasal/Sinus Surgical W /BX/Polypectomy/Debridement Completed 11/11/2020 83804 Endoscopy Nasal Diagnostic Compl eted 10/27/2020 74300 Endoscopy Nasal Diagnostic Compl eted 10/10/2020 72908 Diffusing Capacity Completed 10/10/2020 26640 Plethysmography Determination Adry ng Volumes & Per Airway Resist Completed 10/10/2020 57874 Spirometry Completed 10/09/2020 65285 Office/Outpatient Established Lo w MDM 20-29 Min Completed 09/22/2020 58124 Office/Outpatient Established Mo d MDM 30-39 Min Completed 09/22/2020 50315 Endoscopy Nasal Diagnostic Compl eted 09/09/2020 10628 Office/Outpatient Established Mo d MDM 30-39 Min Completed 09/09/2020 03815 Spirometry Completed Medical Devices Description No Information Available Encounters Type Date Location Provider Dx Diagnosis Office Visit 12/09/2020 11:30a [facility] [place] J32.8 Other chronic sinusitis Office Visit 12/02/2020 8:30a [facility] [place] J32.8 Other chronic sinusitis Office Visit 11/19/2020 10:45a [facility] [place] J32.8 Other chronic sinusitis Office Visit 10/09/2020 10:30a [facility] Alec Mcleod MD J01.90 Acute sinusitis, unspecified Office Visit 09/22/2020 1:30p [facility] Alec Mcleod MD J01.90 Acute sinusitis, unspecified Office Visit 09/09/2020 10:30a [facility] Pulmonary/Thoracic Lawralfreda Zhang MD G47.33 Obstructive sleep apnea (adult) (pediatr ic) J44.9 Chronic obstructive pulmonar y disease, unspecified Z87.891 Personal history of nicotine dependence Office Visit 07/04/2020 11:15a [facility] Alec Mcleod MD Z48.89 Encounter for other specified surgical aftercare Assessments Date Code Description Provider 12/09/2020 J32.8 Other chronic sinusitis Bryson richardson [...] of nicotine dep endence Walt Zhang MD 07/04/2020 Z48.89 Encounter for other specified juan rgical aftercare Alec Mcleod MD Plan of Treatment No Information Available Functional Status Description No Information Available Mental Status Description No Information Available Referrals Refer to Dr Reason for Referral Status Appt Date Maycol Lund M.D. Needs urgent eval for Extran odal NK/T-CELL lymphoma..nasal type Created [facility] [address] [place] [address] [phone]
--- OUTSIDE RECORDS SUMMARY | 2021-01-23 11:06 | CCD | Continuity of Care Document ---
Author Author Ed GUZMAN MD Organization Unknown Address [address] [place] [address], [address] [place] [address] Phone [phone] Care Team Providers Care Preschool Assistant Teacher Name Role Phone Nohemy Kapoor AUTM [phone] AUTM Unavailable Central Scheduling AUTM [phone] Walt Zhang M.D. AUTM [phone] Maycol Lund M.D. AUTM [phone] Problems Active Problems Provider Date Essential hypertension [...] SIG Qnty Indications Ordering Provide r Date Zofran 4mg Tablets 2 b y mouth twice a day 14tabs Walt Zhang MD 01/18/2021 CPAP Device 12cm lcw Walt Zhang MD 07/18/2020 Stiolto Respimat 2.5-2.5mcg/Act Ae rosol 2 puffs once daily 12gm Walt Zhang MD 02/17/2019 Xopenex HFA 45mcg/Act Aerosol 2 puffs qid/prn 45gm Walt Zhang MD 02/17/2019 Xyzal Allergy 24HR 5mg Tablets 1 by mouth every day 90tabs Walt Zhang MD 02/17/2019 Aerochamber Plus Misc as directed w/ hfa 1units Walt Zhang MD 05/18/2018 Paxil 30mg Tablets 1 by mo [facility] every day Unknown Voriconazole 200mg Tablets Take [...] Tablets 1 by mouth every day Unknown Norvasc 10mg Tablets 1 [...] every day for 14 days 14tabs Alec Mcledo MD 021 - 10/23/2020 Mupirocin Calcium 2% [...] CPT Code Status Date Vaccine Lot # [id number] Given 12/19/2018 Flublock, Quadrivalent Vital Signs Date Vital Result Comment 01/08/2021 10:04am Height 68 inches 5'8" Weight 190.00 lb BMI (Body Mass Index) 28.9 kg/m2 [place] Body Weight 154 lb Weight 86.184 kg BSA (Body Surface Area) 2.00 m2 12/09/2020 11:18am BP Systolic 118 mmHg BP Diastolic 80 mmHg Heart Rate 67 /min O2 % BldC Oximetry 98 % Body Temperature 99.9 F Height 68 inches 5'8" Weight 192.00 lb BMI (Body Mass Index) 29.2 kg/m2 [place] Body Weight 154 lb Weight 87.091 kg BSA (Body Surface Area) 2.01 m2 Results Test Acquired Date Facility Test Result H/L Range Note Nasal & Sinus Cult Gmstain 12/09/2020 [facility] Main Lab [address], [place] [id number] [phone] Gram Stain (SEE NOTE) Normal 1 Nasal And Sinus Culture FULL REPORT IN L <SEE NOTE> Normal 2 Culture Fungus Misc 12/09/2020 [facility] [address] [place], [place] [id number] [phone] Fungal Smear Testing performe <SEE NOTE> 3 Fungal Culture Other Source Testing performe <SEE NOTE> 4 Laboratory test finding 11/11/2020 [facility] Main Lab [address], [place] [id number] [phone] Nasal And Sinus Culture FULL REPORT IN L <SEE NOTE> N ormal 5 Laboratory test finding 11/11/2020 [facility] Main Lab [address] [place] [address] [phone] Pathology Request For Service (SEE NOTE) 6 Laboratory test finding 11/11/2020 [facility] [address] [place] [address] [phone] Pathology Request For Service (SEE NOTE) 7 Laboratory test finding 09/22/2020 [facility] [address] [place] [address] [phone] Nasal And Sinus Culture FULL REPORT IN L <SEE NOTE> N ormal 8 1 NO CELLS SEEN NO ORGANISMS SEEN [...] LEVOFLOXACIN PO 500mg qd 1 S 3 Testing performed at [facility] lab . Report copy to follow on a separate form. 01/10/21 REF LAB#:[id number] YESY/Calcofluor preparatio No fungus observed. 4 Testing performed at [facility] lab . Report copy to follow on a separate form. 01/10/21 REF LAB#:[id number] FUNGUS CULTURE [facility] No Yeast or Mold Isolated after 4 weeks. 5 FULL REPORT IN LAB NOTES (eC W and Medent). NORMAL TIGIST PRESENT 6 FINAL DIAGNOSIS Left nasal mucosa, biopsy: Collections [...] process/lymphoma, the case will be sent to [facility] hematopathology department for consultation and further work up, an addendum with result of consultation and lymphoma work up will follow. See note. Note: Immunostains for CD20 and CD3 were performed, and the atypical cells appear to stain with CD20(B-cell marker) rather than CD3(T-cell marker). Comment: Presence of fungal hyphae and concern for malignancy/lymphoma, was called to Dr. Thomas GUZMAN. 11/14/2020908 CLINICAL DIAGNOSIS Mucosal biopsy 11/12/20201437 GROSS DIAGNOSIS Received in formalin labeled "Ed Olson and designated left nasal mucosa" is a 0.9 x 0.6 x 0.2 cm. portion of pale marr soft tissue. Sectioned all in one. - 11/12/20201437 Signed Genesis La MD 11/14/2020908 7 Addendum 1 Entered: 183 Left nasal mucosa, biopsy: Extranodal NK/ T-cell lymphoma, 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 Please see complete report from [facility] hematopathology department [id number], scanned in EMR under pathology module. 11/20/20201835 [...] process/lymphoma, the case will be sent to [facility] hematopathology department for consultation and further work up, an addendum with result of consultation and possible lymphoma work up will follow. See note. Note: Immunostains for CD20 and CD3 were performed, and the atypical cells appear to stain with CD20(B-cell marker) rather than CD3(T-cell marker). Comment: Presence of fungal hyphae and concern for malignancy/lymphoma, was called to Dr. Thomas GUZMAN. 11/14/2020925 CLINICAL DIAGNOSIS Mucosal biopsy 11/12/20201437 GROSS DIAGNOSIS Received in formalin labeled "Ed Olson and designated left nasal mucosa" is a 0.9 x 0.6 x 0.2 cm. portion of pale marr soft tissue. Sectioned all in one. - 11/12/20201437 Signed Genesis La MD 11/14/2020925 8 FULL REPORT IN LAB NOTES (eC W [...] FOR ESBL Procedures Date Code Description Status 01/08/2021 75060 Office/Outpatient Established delma MDM 20-29 Min Completed 12/09/2020 71552 Office/Outpatient Established Lo w MDM 20-29 Min Completed 12/09/2020 18834 Endoscopy Nasal/Sinus Surgical W /BX/Polypectomy/Debridement Completed 12/02/2020 24645 Office/Outpatient Established Lo w MDM 20-29 Min Completed 12/02/2020 73828 Endoscopy Nasal/Sinus Surgical W /BX/Polypectomy/Debridement Completed 11/19/2020 59636 Office/Outpatient Established Mo d MDM 30-39 Min Completed 11/19/2020 16283 Endoscopy Nasal/Sinus Surgical W /BX/Polypectomy/Debridement Completed 11/11/2020 82287 Endoscopy Nasal Diagnostic Compl eted 10/27/2020 64882 Endoscopy Nasal Diagnostic Compl eted 10/10/2020 06040 Diffusing Capacity Completed 10/10/2020 10873 Plethysmography Determination Adry ng Volumes & Per Airway Resist Completed 10/10/2020 02629 Spirometry Completed 10/09/2020 15414 Office/Outpatient Established Lo w MDM 20-29 Min Completed 09/22/2020 28883 Office/Outpatient Established Mo d MDM 30-39 Min Completed 09/22/2020 73202 Endoscopy Nasal Diagnostic Compl eted 09/09/2020 51832 Office/Outpatient Established Mo d MDM 30-39 Min Completed 09/09/2020 93471 Spirometry Completed Medical Devices Description No Information Available Encounters Type Date Location Provider Dx Diagnosis Office Visit 01/08/2021 10:00a [facility] ENT [facility] Hal Bar II, PA-C J32.8 Other chronic sinusitis Office Visit 12/09/2020 11:30a [facility] Hamilton Fierro J32.8 Other chronic sinusitis Office Visit 12/02/2020 8:30a [facility] [place] J32.8 Other chronic sinusitis Office Visit 11/19/2020 10:45a [facility] [place] Fierro J32.8 Other chronic sinusitis Office Visit 10/09/2020 10:30a [facility] ENT [facility] Alec Mcleod MD J01.90 Acute sinusitis, unspecified Office Visit 09/22/2020 1:30p [facility] Alec Mcleod MD J01.90 Acute sinusitis, unspecified Office Visit 09/09/2020 10:30a [facility] Pulmonary/Thoracic Lawrenc e Zhang, MD G47.33 Obstructive sleep apnea (adult) (pediatr [...] MD 10/27/2020 J01.90 Acute sinusitis, unspecified Krishan dhara Mcleod MD 10/10/2020 J44.9 Chronic obstructive pulmonary di sease, unspecified Pulmonary Lab 10/09/2020 J01.90 Acute sinusitis, unspecified Krishan dhara Mcleod MD 09/22/2020 J01.90 Acute sinusitis, unspecified Krishan dhara Mcleod MD 09/09/2020 G47.33 Obstructive sleep apnea (adult) (pediatric) Walt Zhang MD 09/09/2020 J44.9 Chronic obstructive pulmonary di sease, unspecified Walt Zhang MD 09/09/2020 Z87.891 Personal history of nicotine dep endence Walt Zhang MD Plan of Treatment Future Appointment(s):* 02/26/2021 9:45 am - Walt Zhang MD at [facility] Pulmonary/Thoracic 01/08/2021 - Hal Bar II, PA-C* J32.8 Other chronic sinusitis* Comments:* Suspect the "mass" that he observed was a blood clot related to recent epistaxis. This had resolved by the time he presented to this office. He is moving air freely through both nasal passages. There was some old blood crust present with no fresh blood.. Recommend he use nasal saline gel to moisten the nasal passages as this may give him more relief with regards to nasal dryness. He will continue to follow-up with his other providers and return to this office if there changes or concerns. Functional Status Description No Information Available Mental Status Description No Information Available Referrals Refer to Reason for Referral Status Appt Date Budnik, Maycol, M.D. Needs urgent eval for Extran odal NK/T-CELL lymphoma..nasal type Created [facility] Radiation Oncol [address] [id number] [phone]
--- OUTSIDE RECORDS SUMMARY | 2021-01-23 11:06 | CCD | Continuity of Care Document ---
Author Author Ed BAR Organization Unknown Address [address] [place] [address], [address] [place] [address] Phone [phone] Care Team Providers Care Wrist Hemmer Name Role Phone Nohemy Kapoor AUTM AUTM Unavailable Central Scheduling AUTM [phone] Walt Zhang M.D. AUTM [phone] Maycol Lund M.D. AUTM [phone] Problems Active Problems Provider Date Essential hypertension [...] CPT Code Status Date Vaccine Lot # [id number] Given 12/19/2018 Flublock, Quadrivalent Vital Signs Date Vital Result Comment 01/08/2021 10:04am Height 68 inches 5'8" Weight 190.00 lb BMI (Body Mass Index) 28.9 kg/m2 [place] Body Weight 154 lb Weight 86.184 kg BSA (Body Surface Area) 2.00 m2 12/09/2020 11:18am BP Systolic 118 mmHg BP Diastolic 80 mmHg Heart Rate 67 /min O2 % BldC Oximetry 98 % Body Temperature 99.9 F Height 68 inches 5'8" Weight 192.00 lb BMI (Body Mass Index) 29.2 kg/m2 [place] Body Weight 154 lb Weight 87.091 kg BSA (Body Surface Area) 2.01 m2 Results Test Acquired Date Facility Test Result H/L Range Note Nasal & Sinus Cult Gmstain 12/09/2020 [facility] Main Lab [address] [place] [address] [phone] Gram Stain (SEE NOTE) Normal 1 Nasal And Sinus Culture FULL REPORT IN L <SEE NOTE> Normal 2 Laboratory test finding 11/11/2020 [facility] Main Lab [address] [place] [phone] Nasal And Sinus Culture FULL REPORT IN L <SEE NOTE> N ormal 3 Laboratory test finding 11/11/2020 [facility] Main Lab [address] [place] [address] [phone] Pathology Request For Service (SEE NOTE) 4 Laboratory test finding 11/11/2020 [facility] Main Lab [address] [place] [address] [phone] Pathology Request For Service (SEE NOTE) 5 Laboratory test finding 09/22/2020 [facility] Main Lab [address] [address] [phone] Nasal And Sinus Culture FULL REPORT IN [...] process/lymphoma, the case will be sent to [facility] hematopathology department for consultation and further work [...] La MD 11/14/2020908 5 Addendum 1 Entered: [phone] Left nasal mucosa, biopsy: Extranodal NK/ T-cell lymphoma, 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 Please see complete report from [facility] hematopathology department [id number], scanned in EMR under pathology module. 11/20/20201835 [...] process/lymphoma, the case will be sent to [facility] hematopathology department for consultation and further work [...] ESBL Procedures Date Code Description Status 01/08/2021 52137 Office/Outpatient Established Lo w MDM 20-29 Min Completed 12/09/2020 94628 Office/Outpatient Established Lo w MDM 20-29 Min Completed 12/09/2020 01850 Endoscopy Nasal/Sinus Surgical W /BX/Polypectomy/Debridement Completed 12/02/2020 90096 Office/Outpatient Established Lo w MDM 20-29 Min Completed 12/02/2020 12920 Endoscopy Nasal/Sinus Surgical W /BX/Polypectomy/Debridement Completed 11/19/2020 05106 Office/Outpatient Established Mo d MDM 30-39 Min Completed 11/19/2020 64062 Endoscopy Nasal/Sinus Surgical W /BX/Polypectomy/Debridement Completed 11/11/2020 98133 Endoscopy Nasal Diagnostic Compl eted 10/27/2020 52416 Endoscopy Nasal Diagnostic Compl eted 10/10/2020 64611 Diffusing Capacity Completed 10/10/2020 12099 Plethysmography Determination Adry ng Volumes & Per Airway Resist Completed 10/10/2020 48180 Spirometry Completed 10/09/2020 42360 Office/Outpatient Established Lo w MDM 20-29 Min Completed 09/22/2020 48757 Office/Outpatient Established Mo d MDM 30-39 Min Completed 09/22/2020 66948 Endoscopy Nasal Diagnostic Compl eted 09/09/2020 95381 Office/Outpatient Established Mo d MDM 30-39 Min Completed 09/09/2020 64828 Spirometry Completed Medical Devices Description No Information Available Encounters Type Date Location Provider Dx Diagnosis Office Visit 01/08/2021 10:00a [facility] Hal Bar II, PA-C J32.8 Other chronic sinusitis Office Visit 12/09/2020 11:30a [facility] Hamilton Fierro J32.8 Other chronic sinusitis Office Visit 12/02/2020 8:30a [facility] Hamilton Fierro J32.8 Other chronic sinusitis Office Visit 11/19/2020 10:45a [facility] Hamilton Fierro J32.8 Other chronic sinusitis Office Visit 10/09/2020 10:30a [facility] Alec Mcleod MD J01.90 Acute sinusitis, unspecified Office Visit 09/22/2020 1:30p [facility] Alec Mcleod MD J01.90 Acute sinusitis, unspecified Office Visit 09/09/2020 10:30a [facility] Pulmonary/Thoracic Lawralfreda Zhang MD G47.33 Obstructive [...] 9:45 am - Walt Zhang MD at [facility] Pulmonary/Thoracic 01/08/2021 - Hal Bar II, [...] Refer to Reason for Referral Status Appt Maycol Conway M.D. Needs urgent eval for Extran odal NK/T-CELL lymphoma..nasal type Created [facility] Radiation Oncol [address] [place] [address] [phone]
--- OUTSIDE RECORDS SUMMARY | 2021-01-23 11:06 | CCD ---
Author Author [facility] Organization [facility] Address Unknown Phone Unavailable Care Team Providers Care Dumpling Machine Operator Name Role Phone Elly Ayoub Unavailable PROBLEMS Type Condition ICD9-CM Code [id number] Code Onset Dates Condition S tatus W/U Status Risk SNOMED Code Notes Problem Mixed hyperlipidemia E78.2 Active confirmed 500693902 Problem Overweight (BMI 25.0-29.9) E66.3 Active confirmed 107828489 Problem JACEK (generalized anxiety disorder) F41.1 Activ e confirmed 87130285 Problem Renal cyst N28.1 Active confirmed 073077354 Problem Allergic rhinitis, unspecified seasonality, unspecifie d trigger J30.9 Active confirmed 65100087 Problem Gastroesophageal reflux disease, esophagitis pre sence not specified K21.9 Active confirmed 418022636 Problem Basal cell carcinoma of nose C44.311 Active confirm ed 472555380 Problem Coronary artery disease invo lving coronary bypass graft of [place] heart without angina pectoris I25.810 Active confirmed 924817 002 Problem IFG (impaired fasting glucose) R73.01 Active confir med 340831246 Problem Recurrent bronchiectasis J47.9 Active confirmed 777408460 Problem Lymphoma of lymph nodes of head, 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 Active confirmed 40786626 Problem Chronic maxillary sinusitis J32.0 Active confirmed 94002253 Problem Chronic sinusitis, unspecified J32.9 Active c onfirmed 32867243505692 Problem Prostate cancer screening Z12.5 Active confirmed 253226649 Problem Encounter for immunization Z23 Active confirmed 051654541 Problem Colon cancer screening Z12.11 Active confirmed 108874265 Problem Essential hypertension I10 Active confirmed 99302699 Problem Aspergillosis B44.9 Active confirmed 937156 06 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 1099 69125 Problem Coronary artery disease invo lving [place] coronary artery of [place] heart without angina pectoris I25.10 Active confirmed 586040 000 Problem Obstructive sleep apnea G47.33 Active confirmed 26316485 ALLERGIES Allergen (clinical drug ingredient) Drug/Non Drug Allergy do cumented on EMR Reaction Allergy Type Onset Date Status zolpidem Ambien([facility] Code:[address]-34) Violent Drug Allergy Active Latex (for allergy use only) Rash Drug Allergy Active clarithromycin Biaxin Dizzy Drug Allergy Active ENCOUNTERS from 1952 to 2020-12-23 Encounter Location Date Provider Diagnosis [address] [phone] [place] [address] Dec, Elly Ayoub IMMUNIZATIONS Vaccine Route Administration Date Status Influenza 18 yrs & older Flublok IM Intramuscular Dec 23, 2020 Administered SOCIAL HISTORY Tobacco Use: Social History Observation Description Date Details (start date - stop date) Former Smoker Sex Assigned At : Social History Observation Description Sex Assigned At Unknown Education: Question Answer Notes Level of Education: Finished High School Audit Question Answer Notes Total Score: 2 Interpretation: Alcohol Education Language: Question Answer Notes Languages spoken: Korean Drug and Alcohol Question Answer Notes Total Score: 0 Interpretation: No problems reported Alcohol Screening: Question Answer Notes Did you have a drink containing alcohol in the past year? Ye s Points 1 Interpretation Negative How often did you have six or more drinks on one occas ion in the past year? Never (0 points) How many drinks did you have on a typica l day when you were drinking in the past year? 1 or 2 (0 points) How often did you have a drink containing alcohol in t he past year? Monthly or less (1 point) Tobacco Use: Question Answer Notes Are you a: former smoker quit in 1989 How long has it been since you last smoked? > 10 years REASON FOR REFERRAL No Information VITAL SIGNS No information MEDICATIONS Medication SIG (Take, Route, Frequency, Duration) Notes Start Da te End Date Status Aspirin 81 MG TAKE ONE TABLET BY MOUTH DAILY Active Voriconazole 200 MG 1 tab Orally tid for 2 days then BID for 30 Days Active PARoxetine HCl 30 MG 1 tablet in the morning Orally Daily for 90 Active traZODone HCl 50 MG 1 tablet at bedtime as needed Orally Once a day Jan, Active Lisinopril 40 MG 1 tablet Orally Daily Active Omeprazole 40 MG 1 capsule orally Daily for 90 Active Simvastatin 20 MG 1 tablet in the evening Orally Daily Active Metoprolol Tartrate 100 MG 1 tab Orally bid Active Amlodipine Besylate 10 MG 1 tablet Orally Daily for 90 Active Doxazosin Mesylate 4 MG 1 tablet orally Daily for 90 Active PROCEDURES No Information RESULTS No Results REASON FOR VISIT appt MEDICAL (GENERAL) HISTORY Type Description Date Medical History CAD-s/p CABG/ MVR 03/11/13 S JH-04/26/18 ETT-low risk , excellent tolerance to 10 METs Medical History CHF, chronic-mild LVH, grade 1 oziel dysfx, LVEF 60%, mild MS, trace MR-04/2019 TTE-[facility] Medical History BALAJI, mild-02/22/20 dNPSG AHI 11-Zhang Medical History hypertension, essential Medical History BALAJI on chronic CPAP Medical History ho nicotine use-FEV13.0 L (9 4)/FVC 89/ratio 94%-02/26/19 spirometery-Vicente Medical History ho recurrent bronchiectasis Medical History PVD Medical History JACEK Medical History IFG Medical History 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 knee miniscus Repair Surgical History s/p EGD nl some inflam. & ed maykel of Antrum of sTomache so use nexium indef.; nl esophagus, rest of stomache, & Duodenum-Dr. Parmar 09/2013 Surgical History s/p COlonoscopy c diverticul osis, no polyps f/u 10Y-Dr. Parmar 09/2013 Hospitalization History s/p CABG 02/2013 Hospitalization History GI BLeed 2018 Hospitalization History Colitis x's 2 2019 Hospitalization History Pneumonia Goals Section No Information Health Concerns No Information MEDICAL EQUIPMENT No Information MENTAL STATUS No Information FUNCTIONAL STATUS No Information ASSESSMENTS No Information PLAN OF TREATMENT Medication Medication Name Sig Start Date Stop Date Simvastatin 20 MG 1 tablet in the evening Orally Daily Metoprolol Tartrate 100 MG 1 tab Orally bid Voriconazole 200 MG 1 tab Orally tid for 2 days then BID for 30 Days Lisinopril 40 MG 1 tablet Orally Daily Insurance Providers Payer Name Payer Address Payer Phone Insured Name Patient Relati onship to Insured Coverage Start Date Coverage End Date [facility] [address] [address] [facility] [phone] JIM BIANCHI self MEDICARE Part A and B [address] [facility] [address] JIM BIANCHI self
--- OUTSIDE RECORDS SUMMARY | 2021-01-23 11:06 | CCD ---
Author Author [facility] Organization [facility] Address Unknown Phone Unavailable Care Team Providers Care Visual Merchandising Specialist Name Role Phone Elly Ayoub Unavailable PROBLEMS Type Condition ICD9-CM Code [id number] Code Onset Dates Condition S tatus W/U Status Risk SNOMED Code Notes Problem Mixed hyperlipidemia E78.2 Active confirmed 199617439 Problem Overweight (BMI 25.0-29.9) E66.3 Active confirmed 747729543 Problem JACEK (generalized anxiety disorder) F41.1 Activ e confirmed 70894969 Problem Renal cyst N28.1 Active confirmed 541930176 Problem Allergic rhinitis, unspecified seasonality, unspecifie d trigger J30.9 Active confirmed 17030307 Problem Gastroesophageal reflux disease, esophagitis pre sence not specified K21.9 Active confirmed 550490069 Problem Basal cell carcinoma of nose C44.311 Active confirm ed 100250996 Problem Coronary artery disease invo lving coronary bypass graft of [place] heart without angina pectoris I25.810 Active confirmed 951497 002 Problem IFG (impaired fasting glucose) R73.01 Active confir med 406710623 Problem Recurrent bronchiectasis J47.9 Active confirmed 639839899 Problem Lymphoma of lymph nodes of head, 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 Active confirmed 02149737 Problem Chronic maxillary sinusitis J32.0 Active confirmed 59913018 Problem Chronic sinusitis, unspecified J32.9 Active c onfirmed 58668138719034 Problem Prostate cancer screening Z12.5 Active confirmed 314830235 Problem Encounter for immunization Z23 Active confirmed 698586838 Problem Colon cancer screening Z12.11 Active confirmed 844229563 Problem Essential hypertension I10 Active confirmed 43717533 Problem Aspergillosis B44.9 Active confirmed 205864 06 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 1099 21450 Problem Coronary artery disease invo lving [place] coronary artery of [place] heart without angina pectoris I25.10 Active confirmed 105037 000 Problem Obstructive sleep apnea G47.33 Active confirmed 29639069 ALLERGIES Allergen (clinical drug ingredient) Drug/Non Drug Allergy do cumented on EMR Reaction Allergy Type Onset Date Status zolpidem Ambien([facility] Code:[address]-17) Violent Drug Allergy Active Latex Latex Rash Drug Allergy Active clarithromycin Biaxin Dizzy Drug Allergy Active ENCOUNTERS from 1950 to 2021-01-06 Encounter Location Date Provider Diagnosis [facility] [place] [address] [facility] [phone] [place] [address] Dec, Elly Ayoub Aspergillosis B44.9 ; Chronic maxillary sinusitis J32.0 ; Obstructive sleep apnea G47.33 ; 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 ; Coronary artery disease involving [place] coronary artery of [place] heart without angina pectoris I25.10 ; Allergic rhinitis, unspecified seasonality, unspecified trigger J30.9 ; Encounter for immunization Z23 and Hyponatremia E87.1 IMMUNIZATIONS Vaccine Route Administration Date Status Influenza [...] Education Language: Question Answer Notes Languages spoken: Irish Drug and Alcohol Question Answer Notes Total [...] REASON FOR REFERRAL No Information VITAL SIGNS Weight 188 lbs Dec, Weight-kg 85.28 kg Dec, Height 70.5 in Dec, BMI 26.59 kg/m2 Dec, Heart Rate 67 /min Dec, Respiratory Rate 18 /min Dec, Temperature 99 degrees Fahrenheit Dec, Oximetry 96% Dec, Blood pressure systolic 128 mm Hg Dec, Blood pressure diastolic 62 mm Hg Dec, MEDICATIONS Medication SIG (Take, Route, Frequency, Duration) [...] tablet orally Daily for 90 Active PROCEDURES from 1950 to 2021-01-06 Procedure Date Ordered Result Body Site Imm: Flublok Quadrivalent 18 years & older 0.5mL IM Influenza 20 02-01-12 N/A RESULTS No Results REASON FOR VISIT f/u MEDICAL (GENERAL) HISTORY Type Description Date Medical [...] Medical History 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 KETTLE CHIPPER's-08/2019 Surgical History s/p CABG 03/12/2013 Surgical History s/p Rt. knee miniscus Repair Surgical History s/p EGD nl some inflam. & ed maykel of Antrum of sTomache so use nexium indef.; nl esophagus, rest of stomache, & Duodenum-Dr. Parmar 09/2013 Surgical History s/p COlonoscopy c diverticul osis, no polyps f/u 10Y-Dr. Parmar 09/2013 Hospitalization History s/p CABG 02/2013 Hospitalization History GI BLeed 2017 Hospitalization History Colitis x's 2 2018 Hospitalization History Pneumonia Goals Section No Information Health Concerns No Information MEDICAL EQUIPMENT No Information MENTAL STATUS No Information FUNCTIONAL STATUS No Information ASSESSMENTS Encounter Date Diagnosis Assessment Notes Treatment Notes Treatm ent Clinical Notes Dec, Chronic maxillary sinusitis (ICD-10 - J32.0) Patient had left anterior ethmoidectomy and septoplasty done 06/2020 without improvement of his symptoms. He had another biopsy done by Dr. Guzman on 11/11 consistent with extranodal T-cell lymphoma and concern for aspergillosis as they were hyphae numerous morphology suggestive of Aspergillus species. Most recent culture had Stenotrophomonas maltophilia sensitive to Levaquin and Bactrim. The patient had just finished a course of levofloxacin in October. I suspect this is colonization as symptoms have markedly improved with voriconazole treatment. We will continue to monitor, will use saline spray and not reuse flushes Dec, Aspergillosis (ICD-10 - B44.9) Pathology from 11/11/2020 shows necrotic tissue fragments infiltrated by atypical medium-sized cells numerous fungal hyphae with morphology suggestive of aspergillus species and nasal type NK/T-cell lymphoma Case was discussed with Dr. Guzman who will be sending the specimen for fungal culture sent on 12/09 and 12/03 still pending. Aspergillus antibodies and Aspergillus galactomannan are still pending , Fungitell B1-2 glucan< [address] scan of sinuses with radiology there is no evidence of fungal ball destruction of bones around the sinuses or orbital involvement, patient symptoms of nasal congestion and fever have markedly improved since on voriconazole. The patient will be treated for 4-6 weeks and then kept on chronic suppressive therapy to avoid recurrence with chemotherapy. Dec, Obstructive sleep apnea (ICD-10 - G47.33) He follows up with Dr. 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 Ruffin for evaluation of radiation and [facility] heme onc Dr Paramjit Goyal, we have discussed case Dec, Coronary artery disease invo lving [place] coronary artery of [place] heart without angina pectoris (ICD-10 - I25.10) Dec, Allergic rhinitis, unspecifi ed seasonality, unspecified trigger (ICD-10 - J30.9) Dec, Encounter for immunization (ICD-10 - Z23) Patient agreed on getting flu shot vaccine today before chemotherapy starts 12/25 He was wondering about Antonio & Antonio vaccine booster I advised him that this was not recommended yet Dec, Hyponatremia (ICD-10 - E87.1) History of hyponatremia in the past sodium have been as low as 122 but that was in the setting of pneumonia. This will need to be addressed by his primary care provider PLAN OF TREATMENT Medication Medication Name Sig Start Date Stop Date Simvastatin 20 MG 1 tablet in the evening Orally Daily Metoprolol Tartrate 100 MG 1 tab Orally bid Voriconazole 200 MG 1 tab Orally tid for 2 days then BID for 30 Days Lisinopril 40 MG 1 tablet Orally Daily Treatment Notes Assessment Notes Clinical Notes Chronic maxillary sinusitis Patient had left anterior ethmoidectomy and septoplasty done 06/2020 without improvement of his symptoms. He had another biopsy done by Dr. Guzman on 11/11 consistent with extranodal T-cell lymphoma and concern for aspergillosis as they were hyphae numerous morphology suggestive of Aspergillus species.Most recent culture had Stenotrophomonas maltophilia sensitive to Levaquin and Bactrim. The patient had just finished a course of levofloxacin in October. I suspect this is colonization as symptoms have markedly improved with voriconazole treatment. We will continue to monitor, will use saline spray and not reuse flushes Aspergillosis Pathology from 2020 shows necrotic tissue fragments infiltrated by atypical medium-sized cells numerous fungal hyphae with morphology suggestive of aspergillus species and nasal type NK/T-cell lym phomaCase was discussed with Dr. Guzman who will be sending the specimen for fungal culture sent on 12/09 and 12/03 still pending. Aspergillus antibodies and Aspergillus galactomannan are still pending , Fungitell B1-2 glucan< 31I have reviewed CT scan of sinuses with radiology there is no evidence of fungal ball destruction of bones around the sinuses or orbital involvement, patient symptoms of nasal congestion and fever have markedly improved since on voriconazole. The patient will be treated for 4-6 weeks and then kept on chronic suppressive therapy to avoid recurrence with chemotherapy. Obstructive sleep apnea He follows up wi th Dr. Zhang's office on CPAP of 12, he will buy an ozone cleaniner for CPAP possibly source of stenotrophomonas T-cell lymphoma He was seen by Dr. Junaid hall for evaluation of radiation and [facility] onc Dr Paramjit Goyal, we have discussed case Encounter for immunization Patient agree d on getting flu shot vaccine today before chemotherapy starts 12/25He was wondering about Antoino & Antonio vaccine booster I advised him that this was not recommended yet Hyponatremia History of hyponatre lalitha in the past sodium have been as low as 122 but that was in the setting of pneumonia. This will need to be addressed by his primary care provider Treatment Notes Test Name Order Date VORICONAZOLE LEVEL 2020-12-23 Next Appt Details 4 Weeks Reason: Insurance Providers Payer Name Payer Address Payer Phone Insured Name Patient Relati onship to Insured Coverage Start Date Coverage End Date MEDICARE Part A and B [address] [facility] [id number] JIM BIANCHI [facility] [address] [address] [facility] [id number] JIM BIANCHI
--- OUTSIDE RECORDS SUMMARY | 2021-01-23 11:06 | CCD | Continuity of Care Document ---
Author Author [facility] Organization Unknown Address [address] [place] [address], [address] [place] [address] Phone [phone] Care Team Providers Care Fiberglass Boat Builder Name Role Phone Nohemy Kapoor AUTM [phone] AUTM Unavailable Central Scheduling AUTM [phone] Walt Zhang M.D. AUTM [phone] Maycol Lund M.D. AUTM [phone] Problems Active Problems Provider Date Essential hypertension [...] CPT Code Status Date Vaccine Lot # [id number] Given 12/19/2018 Flublock, Quadrivalent Vital Signs Date Vital Result Comment 01/08/2021 10:04am Height 68 inches 5'8" Weight 190.00 lb BMI (Body Mass Index) 28.9 kg/m2 [place] Body Weight 154 lb Weight 86.184 kg BSA (Body Surface Area) 2.00 m2 12/09/2020 11:18am BP Systolic 118 mmHg BP Diastolic 80 mmHg Heart Rate 67 /min O2 % BldC Oximetry 98 % Body Temperature 99.9 F Height 68 inches 5'8" Weight 192.00 lb BMI (Body Mass Index) 29.2 kg/m2 [place] Body Weight 154 lb Weight 87.091 kg BSA (Body Surface Area) 2.01 m2 Results Test Acquired Date Facility Test Result H/L Range Note Nasal & Sinus Cult Gmstain 12/09/2020 [facility] [address] [place] [phone] Gram Stain (SEE NOTE) Normal 1 Nasal And Sinus Culture FULL REPORT IN L <SEE NOTE> Normal 2 Laboratory test finding 11/11/2020 [facility] Main Lab [address] [place] [address] [phone] Nasal And Sinus Culture FULL REPORT IN L <SEE NOTE> N ormal 3 Laboratory test finding 11/11/2020 [facility] [address] [place] [address] [phone] Pathology Request For Service (SEE NOTE) 4 Laboratory test finding 11/11/2020 [facility] [address] [place] [address] [phone] Pathology Request For Service (SEE NOTE) 5 Laboratory test finding 09/22/2020 [facility] Lab [address] [phone] Nasal And Sinus Culture FULL REPORT IN [...] process/lymphoma, the case will be sent to [facility] hematopathology department for consultation and further [...] La MD 11/14/2020908 5 Addendum 1 Entered: [phone] Left nasal mucosa, biopsy: Extranodal NK/ T-cell lymphoma, 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 Please see complete report from [facility] hematopathology department [id number], scanned in EMR under pathology module. 11/20/20201835 [...] process/lymphoma, the case will be sent to [facility] hematopathology department for consultation and further [...] ESBL Procedures Date Code Description Status 01/08/2021 54176 Office/Outpatient Established Lo w MDM 20-29 Min Completed 12/09/2020 35457 Office/Outpatient Established Lo w MDM 20-29 Min Completed 12/09/2020 53562 Endoscopy Nasal/Sinus Surgical W /BX/Polypectomy/Debridement Completed 12/02/2020 93180 Office/Outpatient Established Lo w MDM 20-29 Min Completed 12/02/2020 92129 Endoscopy Nasal/Sinus Surgical W /BX/Polypectomy/Debridement Completed 11/19/2020 01344 Office/Outpatient Established Mo d MDM 30-39 Min Completed 11/19/2020 07952 Endoscopy Nasal/Sinus Surgical W /BX/Polypectomy/Debridement Completed 11/11/2020 19227 Endoscopy Nasal Diagnostic Compl eted 10/27/2020 64860 Endoscopy Nasal Diagnostic Compl eted 10/10/2020 79228 Diffusing Capacity Completed 10/10/2020 08423 Plethysmography Determination Adry ng Volumes & Per Airway Resist Completed 10/10/2020 18538 Spirometry Completed 10/09/2020 84257 Office/Outpatient Established Lo w MDM 20-29 Min Completed 09/22/2020 53034 Office/Outpatient Established Mo d MDM 30-39 Min Completed 09/22/2020 24056 Endoscopy Nasal Diagnostic Compl eted 09/09/2020 38377 Office/Outpatient Established Mo d MDM 30-39 Min Completed 09/09/2020 40094 Spirometry Completed Medical Devices Description No Information Available Encounters Type Date Location Provider Dx Diagnosis Office Visit 01/08/2021 10:00a [facility] Hal Bar II, PA-C J32.8 Other chronic sinusitis Office Visit 12/09/2020 11:30a [facility] Hamilton Fierro J32.8 Other chronic sinusitis Office Visit 12/02/2020 8:30a [facility] Hamilton Fierro J32.8 Other chronic sinusitis Office Visit 11/19/2020 10:45a [facility] Hamilton Fierro J32.8 Other chronic sinusitis Office Visit 10/09/2020 10:30a [facility] Alec Mcleod MD J01.90 Acute sinusitis, unspecified Office Visit 09/22/2020 1:30p [facility] Alec Mcleod MD J01.90 Acute sinusitis, unspecified Office Visit 09/09/2020 10:30a [facility] Pulmonary/Thoracic Lawralfreda Zhang MD G47.33 Obstructive sleep [...] 9:45 am - Walt Zhang MD at [facility] Pulmonary/Thoracic 01/08/2021 - Hal Bar II, PA-C* [...] for Extran odal NK/T-CELL lymphoma..nasal type Created [facility] Radiation Oncol [address] [place] [address] [phone]
--- OUTSIDE RECORDS SUMMARY | 2021-01-23 11:07 | CCD | Continuity of Care Document ---
Author Author Ed ZHANG MD Organization Unknown Address [address] [place] [address] Phone [phone] Care Team Providers Care Strand Galvanizer Name Role Phone Nohemy Kapoor AUTM [phone] AUTM Unavailable Central Scheduling AUTM [phone] Walt Zhang M.D. AUTM [phone] Maycol Lund M.D. AUTM [phone] Problems Active Problems Provider Date Essential hypertension Baltazar Parmar JR, MD Onset: 12/14/19 17 Chronic frontoethmoidal sinusitis Bryson Guzman MD Onset: 11/19/2020 Social History Type Date Description Comments Sex Unknown ETOH Use Occasionally consumes alcohol ETOH Use 3 A Day Recreational Drug Use Denies Drug Use Tobacco Use Start: 03/14/69 End: 03/14/89 Quit 90, 2 ppd for 15 yrs Smoking [...] CPT Code Status Date Vaccine Lot # [id number] Given 12/19/2018 Flublock, Quadrivalent Vital Signs Date Vital Result Comment 12/09/2020 11:18am BP Systolic 118 mmHg BP Diastolic 80 mmHg Heart Rate 67 /min O2 % BldC Oximetry 98 % Body Temperature 99.9 F Height 68 inches 5'8" Weight 192.00 lb BMI (Body Mass Index) 29.2 kg/m2 [place] Body Weight 154 lb Weight 87.091 kg BSA (Body Surface Area) 2.01 m2 12/02/2020 8:25am BP Systolic 128 mmHg BP Diastolic 70 mmHg Heart Rate 68 /min O2 % BldC Oximetry 97 % Body Temperature 99.4 F Height 68 inches 5'8" Weight 193.00 lb BMI (Body Mass Index) 29.3 kg/m2 [place] Body Weight 154 lb Weight 87.545 kg BSA (Body Surface Area) 2.01 m2 Results Test Acquired Date Facility Test Result H/L Range Note Nasal & Sinus Cult Gmstain 12/09/2020 [facility] Main [facility] [address] [place] [address] [phone] Gram Stain (SEE NOTE) Normal 1 Nasal And Sinus Culture FULL REPORT IN L <SEE NOTE> Normal 2 Laboratory test finding 11/11/2020 [facility] [address] [place] [address] [phone] Nasal And Sinus Culture FULL REPORT IN L <SEE NOTE> N ormal 3 Laboratory test finding 11/11/2020 [facility] [address] [place] [address] [phone] Pathology Request For Service (SEE NOTE) 4 Laboratory test finding 11/11/2020 [facility] Main Lab [address] [place] [address] [phone] Pathology Request For Service (SEE NOTE) 5 Laboratory test finding 09/22/2020 [facility] Main [facility] [address] [place] [address] [phone] Nasal And Sinus Culture FULL REPORT IN [...] process/lymphoma, the case will be sent to [facility] hematopathology department for consultation and further work [...] MD 11/14/2020 0909 5 Addendum 1 Entered: -183 Left nasal mucosa, biopsy: Extranodal NK/ T-cell lymphoma, 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 Please see complete report from [facility] hematopathology department [id number], scanned in EMR under pathology module. 11/20/20201835 Addendum Signed____ Genesis La MD 11/20/2020 184 FINAL DIAGNOSIS Left nasal mucosa, biopsy: Collections [...] process/lymphoma, the case will be sent to [facility] hematopathology department for consultation and further work [...] ESBL Procedures Date Code Description Status 12/09/2020 89474 Office/Outpatient Established Lo w MDM 20-29 Min Completed 12/02/2020 23594 Office/Outpatient Established Lo w MDM 20-29 Min Completed 12/02/2020 42715 Endoscopy Nasal/Sinus Surgical W /BX/Polypectomy/Debridement Completed 11/19/2020 68662 Office/Outpatient Established Mo d MDM 30-39 Min Completed 11/19/2020 10113 Endoscopy Nasal/Sinus Surgical W /BX/Polypectomy/Debridement Completed 11/11/2020 19096 Endoscopy Nasal Diagnostic Compl eted 10/27/2020 98903 Endoscopy Nasal Diagnostic Compl eted 10/10/2020 75980 Diffusing Capacity Completed 10/10/2020 14166 Plethysmography Determination Adry ng Volumes & Per Airway Resist Completed 10/10/2020 61057 Spirometry Completed 10/09/2020 44022 Office/Outpatient Established Lo w MDM 20-29 Min Completed 09/22/2020 24942 Office/Outpatient Established Mo d MDM 30-39 Min Completed 09/22/2020 56891 Endoscopy Nasal Diagnostic Compl eted 09/09/2020 65101 Office/Outpatient Established Mo d MDM 30-39 Min Completed 09/09/2020 56141 Spirometry Completed 06/26/2020 23557 Office/Outpatient Established Lo w MDM 20-29 Min Completed Medical Devices Description No Information Available Encounters Type Date Location Provider Dx Diagnosis Office Visit 12/02/2020 8:30a [facility] Hamilton Fierro J32.8 Other chronic sinusitis Office Visit 11/19/2020 10:45a [facility] [place] Fierro J32.8 Other chronic sinusitis Office Visit 10/09/2020 10:30a [facility] Alec Mcleod MD J01.90 Acute sinusitis, unspecified Office Visit 09/22/2020 1:30p [facility] Alec Mcleod MD J01.90 Acute sinusitis, unspecified Office Visit 09/09/2020 10:30a [facility] Pulmonary/Thoracic Markell Zhang MD G47.33 Obstructive sleep apnea (adult) (pediatr ic) J44.9 Chronic obstructive pulmonar y disease, unspecified Z87.891 Personal history of nicotine dependence Office Visit 07/04/2020 11:15a [facility] Alec Mcleod MD Z48.89 Encounter for other specified surgical aftercare Office Visit 06/26/2020 11:15a [facility] Pulmonary/Thoracic Markell Zhang MD G47.33 Obstructive sleep apnea (adult) (pediatr ic) J47.9 Bronchiectasis, uncomplicate d Assessments Date Code Description Provider 12/09/2020 J32.8 [...] 09/09/2020 Z87.891 Personal history of nicotine dep staci Zhang MD 07/04/2020 Z48.89 Encounter for other specified juan rgical aftercare Alec Mcleod MD 06/26/2020 G47.33 Obstructive sleep apnea (adult) (pediatric) Walt Zhang MD 06/26/2020 J47.9 Bronchiectasis, uncomplicated La dustin Zhang MD Plan of Treatment No Information Available Functional Status Description No Information Available Mental Status Description No Information Available Referrals Refer to Dr Reason for Referral Status Appt Date Maycol Lund M.D. Needs urgent eval for Extran odal NK/T-CELL lymphoma..nasal type Created [facility] Radiation Oncol [address] [place], [place] [phone]
--- OUTSIDE RECORDS SUMMARY | 2021-01-23 11:07 | CCD ---
Author Author [facility] Organization [facility] Address Unknown Phone Unavailable Care Team Providers Care Deer Farmer Name Role Phone Elly Ayoub Unavailable PROBLEMS Type Condition ICD9-CM Code RQO64-CP Code Onset Dates Condition S tatus W/U Status Risk SNOMED Code Notes Problem Overweight (BMI 25.0-29.9) E66.3 Active confirmed 776759022 Problem Essential hypertension I10 Active confirmed 20568999 Problem Renal cyst N28.1 Active confirmed 960159757 Problem Mixed hyperlipidemia E78.2 Active confirmed 810296415 Problem Gastroesophageal reflux disease, esophagitis pre sence not specified K21.9 Active confirmed 306719595 Problem JACEK (generalized anxiety disorder) F41.1 Activ e confirmed 69672820 Problem Coronary artery disease invo lving coronary bypass graft of [place] heart without angina pectoris I25.810 Active confirmed 579056 002 Problem Allergic rhinitis, unspecified seasonality, unspecifie d trigger J30.9 Active confirmed 62548250 Problem Chronic sinusitis, unspecified J32.9 Active c onfirmed 31158597061921 Problem IFG (impaired fasting glucose) R73.01 Active confir med 896150914 Problem Recurrent bronchiectasis J47.9 Active confirmed 040432263 Problem Obstructive sleep apnea G47.33 Active confirmed 57832497 Problem Colon cancer screening Z12.11 Active confirmed 348942511 Problem Chronic maxillary sinusitis J32.0 Active confirmed 54971681 Problem Basal cell carcinoma of nose C44.311 Active confirm ed 079948761 Problem Prostate cancer screening Z12.5 Active confirmed 868043988 Problem Lymphoma of lymph nodes of head, 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 Active confirmed 49194754 Problem Aspergillosis B44.9 Active confirmed 520406 06 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 1099 90122 Problem Coronary artery disease invo lving [place] coronary artery of [place] heart without angina pectoris I25.10 Active confirmed 737717 000 ALLERGIES Allergen (clinical drug ingredient) Drug/Non Drug Allergy do cumented on EMR Reaction Allergy Type Onset Date Status helena Veliz([facility] Code:[address]-21) Violent Drug Allergy Active Latex (for allergy use only) Rash Drug Allergy Active clarithromycin Biaxin Dizzy Drug Allergy Active ENCOUNTERS from 1952 to 2020-12-04 Encounter Location Date Provider Diagnosis [facility] [address] [facility] [phone] [place] [address] Nov, Elly Ayoub Aspergillosis B44.9 IMMUNIZATIONS No Information SOCIAL HISTORY Tobacco Use: Social History Observation Description Date Details (start date - stop date) Former Smoker Sex Assigned At : Social History Observation Description Sex Assigned At Unknown Education: Question Answer Notes Level of Education: Finished High School Audit Question Answer Notes Total Score: 2 Interpretation: Alcohol Education Language: Question Answer Notes Languages spoken: Barbadian Drug and Alcohol Question Answer Notes Total [...] Notes Start Da te End Date Status Voriconazole 200 MG 1 tab Orally tid for 2 days then BID for 30 Days Nov, Active Metoprolol Tartrate 100 MG 1 tab Orally bid Active Stiolto Respimat 2.5-2.5 MCG/ACT 2 puffs Inhalation Once a day Not-Taking Doxycycline Monohydrate 100 MG 1 capsule Orally bid Feb Not-Taking Claritin 10 MG 1 tablet Orally Once a day for 30 day(s) Not-Taking PARoxetine HCl 30 MG 1 tablet in the morning Orally Daily for 90 Active Trazodone HCl 50 MG 1 tablet at bedtime orally Daily for 90 Active Amlodipine Besylate 10 MG 1 tablet Orally Daily for 90 Active Omeprazole 40 MG 1 capsule orally Daily for 90 Active traZODone HCl 50 MG 1 tablet at bedtime as needed Orally Once a day Jan, Active Doxazosin Mesylate 4 MG 1 tablet orally Daily for 90 Active Aspirin 81 MG TAKE ONE TABLET BY MOUTH DAILY Active ALPRAZolam 0.25 MG 1 tablet orally prn Not-Taking Simvastatin 20 MG 1 tablet in the evening Orally Daily Active Ventolin HFA 108 (90 Base) MCG/ACT 2 puffs as needed Inhalation every 6 hrs Feb, Not-Taking Lisinopril 40 MG 1 tablet Orally Daily Active PROCEDURES No Information RESULTS No Results REASON FOR VISIT [facility] MEDICAL (GENERAL) HISTORY Type Description Date Medical History CAD-s/p CABG/ MVR 03/11/13 S JH-04/26/18 ETT-low risk , excellent tolerance to 10 METs Medical History CHF, chronic-mild LVH, grade 1 oziel dysfx, LVEF 60%, mild MS, trace MR-04/2019 [facility] Medical History BALAJI, mild-02/22/20 dNPSG AHI 11-Zhang Medical History hypertension, essential Medical History BALAJI on chronic CPAP Medical History ho nicotine use-FEV13.0 L (9 4)/FVC 89/ratio 94%-02/26/19 spirometery-Vicente Medical History ho recurrent bronchiectasis Medical History PVD Medical History JACEK Medical History IFG Medical History 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 Surgical History s/p CABG 03/12/2013 Surgical History [...] BLeed 2018 Hospitalization History Colitis x's 2 2018 Hospitalization History Pneumonia Goals Section No Information Health Concerns No Information MEDICAL EQUIPMENT No Information MENTAL STATUS No Information FUNCTIONAL STATUS No Information ASSESSMENTS Encounter Date Diagnosis Assessment Notes Treatment Notes Treatm ent Clinical Notes Nov, Aspergillosis (ICD-10 - B44.9) PLAN OF TREATMENT Medication Medication Name Sig Start Date Stop Date Lisinopril 40 MG 1 tablet Orally Daily Simvastatin 20 MG 1 tablet in the evening Orally Daily Voriconazole 200 MG 1 tab Orally tid for 2 days then BID for 30 Days Nov, Metoprolol Tartrate 100 MG 1 tab Orally bid Next Appt Details Provider Name:Elly Ayoub, 2020-10-0 5 11:00:00 AM, [address] [place] [address], , [place], [address], Insurance Providers Payer Name Payer Address Payer Phone Insured Name Patient Relati onship to Insured Coverage Start Date Coverage End Date R [facility] [address] [address] [facility] [id number] JIM BIANCHI MEDICARE Part A and B [address] [facility] [phone] JIM BIANCHI self
--- OUTSIDE RECORDS SUMMARY | 2021-01-23 11:07 | CCD | Continuity of Care Document ---
Author Author Ed MCLEOD MD Organization Unknown Address [address] [facility] [place] [address] Phone [phone] Care Team Providers Care Postal Service Window Clerk Name Role Phone Nohemy Kapoor AUTM [phone] AUTM Unavailable Central Scheduling AUTM [phone] Walt Zhang M.D. AUTM [phone] Maycol Lund M.D. AUTM [phone] Problems Active Problems Provider Date Essential hypertension [...] 1989, 2 ppd f or 15 yrs Allergies, Adverse Reactions, Alerts Active Allergies Criticality Reaction | Severity Comments [...] CPT Code Status Date Vaccine Lot # [id number] Given 12/19/2018 Flublock, Quadrivalent Vital Signs Date Vital Result Comment 12/09/2020 11:18am BP Systolic 118 mmHg BP Diastolic 80 mmHg Heart Rate 67 /min O2 % BldC Oximetry 98 % Body Temperature 99.9 F Height 68 inches 5'8" Weight 192.00 lb BMI (Body Mass Index) 29.2 kg/m2 [place] Body Weight 154 lb Weight 87.091 kg BSA (Body Surface Area) 2.01 m2 12/02/2020 8:25am BP Systolic 128 mmHg BP Diastolic 70 mmHg Heart Rate 68 /min O2 % BldC Oximetry 97 % Body Temperature 99.4 F Height 68 inches 5'8" Weight 193.00 lb BMI (Body Mass Index) 29.3 kg/m2 [place] Body Weight 154 lb Weight 87.545 kg BSA (Body Surface Area) 2.01 m2 Results Test Acquired Date Facility Test Result H/L Range Note Laboratory test finding 12/09/2020 [facility] [address] [place] [address] [phone] Culture Nasal & Sinus And Gram Stain <pending> Laboratory test finding 11/11/2020 [facility] [address] [place] [address] [phone] Nasal And Sinus Culture FULL REPORT IN L <SEE NOTE> N ormal 1 Laboratory test finding 11/11/2020 [facility] [address] [place] [address]82 [phone] Pathology Request For Service (SEE NOTE) 2 Laboratory test finding 11/11/2020 [facility] [address] [place] [address]3625 [phone] Pathology Request For Service (SEE NOTE) 3 Laboratory test finding 09/22/2020 [facility] [address] [place] [address]8767 [phone] Nasal And Sinus Culture FULL REPORT IN L <SEE NOTE> N ormal 4 Laboratory test finding 06/09/2020 [facility] [address] [place] [address] [phone] Pathology Request For Service (SEE NOTE) 5 1 FULL REPORT IN LAB NOTES (eC W and Medent). NORMAL TIGIST PRESENT 2 FINAL DIAGNOSIS Left nasal mucosa, biopsy: Collections [...] process/lymphoma, the case will be sent to [facility] hematopathology department for consultation and further work [...] 11/12/20201437 Signed Genesis La MD 11/14/2020 0909 3 Addendum 1 Entered: [id number] Left nasal mucosa, biopsy: Extranodal NK/ T-cell lymphoma, 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 Please see complete report from [facility] hematopathology department [id number], scanned in EMR under pathology module. 11/20/20201835 [...] process/lymphoma, the case will be sent to [facility] hematopathology department for consultation and further work [...] - 11/12/20201437 Signed Genesis La MD 11/14/2020925 4 FULL REPORT IN LAB NOTES (eC W [...] SPCTRM BETA LACTAMASE IV NEGATIVE FOR ESBL 5 FINAL DIAGNOSIS A - Sinus contents, left ethmoid, removal: Fragments of sinonasal mucosa with granulation and chronic inflammation. No evidence for malignancy. B - Sinus contents, left maxillary, removal: Sinonasal mucosa with mild chronic inflammation. No evidence for malignancy. C - Nasal septum and polyps, removal: Fragments of sinonasal mucosa with chronic inflammation and granulation tissue. No evidence for malignancy. 06/11/2020 - 1151 CLINICAL DIAGNOSIS Deviated septum, nasal polyps, chronic sinusitis 06/10/2020 - 1350 GROSS DIAGNOSIS A - Received in formalin labeled "contents left ethmoid sinus" and consists of one piece of yellow-marr fragment of soft tissue measuring 1.2 x 1.0 x 0.4 cm. All in one. B - Received in formalin labeled "contents left maxillary sinus" and consists of two fragments of marr-mcgee soft tissue measuring 1.0 x 1.0 x 0.3 cm. in aggregate. All in one. C - Received in formalin labeled "nasal septum and polyps" and consists of multiple fragments of marr-mcgee tissue measuring 1.5 x 1.3 x 0.4 cm. in aggregate. All in one. -SV 06/11/2020 - 1151 Signed ELMA MILLS MD 06/12/2020 0901 Procedures Date Code Description Status 12/09/2020 62817 Office/Outpatient Established Lo w MDM 20-29 Min Completed 12/02/2020 73688 Office/Outpatient Established Lo w MDM 20-29 Min Completed 12/02/2020 41597 Endoscopy Nasal/Sinus Surgical W /BX/Polypectomy/Debridement Completed 11/19/2020 99822 Office/Outpatient Established Mo d MDM 30-39 Min Completed 11/19/2020 53176 Endoscopy Nasal/Sinus Surgical W /BX/Polypectomy/Debridement Completed 11/11/2020 84769 Endoscopy Nasal Diagnostic Compl eted 10/27/2020 51897 Endoscopy Nasal Diagnostic Compl eted 10/10/2020 16229 Spirometry Completed 10/10/2020 83468 Plethysmography Determination Adry ng Volumes & Per Airway Resist Completed 10/10/2020 09454 Diffusing Capacity Completed 10/09/2020 87375 Office/Outpatient Established Lo w MDM 20-29 Min Completed 09/22/2020 73085 Office/Outpatient Established Mo d MDM 30-39 Min Completed 09/22/2020 42169 Endoscopy Nasal Diagnostic Compl eted 09/09/2020 10064 Office/Outpatient Established Mo d MDM 30-39 Min Completed 09/09/2020 32193 Spirometry Completed 06/26/2020 46255 Office/Outpatient Established Lo w MDM 20-29 Min Completed 06/09/2020 47123 Endoscopy Nasal/Sinu s Surgical Remove Tissue From Maxillary Sinus Completed 06/09/2020 15186 Endoscopy Nasal/Sinus Surgical W / Ethmoidectomy Total Completed 06/09/2020 78073 Septoplasty/Submucous Resection Contour Or Replacement W/Graft Completed Medical Devices Description No Information Available Encounters Type Date Location Provider Dx Diagnosis Office Visit 12/09/2020 11:30a [facility] [place] Fier[place] J32.8 Other chronic sinusitis Office Visit 12/02/2020 8:30a [facility] [place] Fierro J32.8 Other chronic sinusitis Office Visit 11/19/2020 10:45a [facility] [place] J32.8 Other chronic sinusitis Office Visit 10/09/2020 10:30a [facility] Alec Mcleod MD J01.90 Acute sinusitis, unspecified Office Visit 09/22/2020 1:30p [facility] Alec Mcleod MD J01.90 Acute sinusitis, unspecified Office Visit 09/09/2020 10:30a [facility] Pulmonary/Thoracic Lawralfreda Zhang MD G47.33 Obstructive sleep apnea (adult) (pediatr ic) J44.9 Chronic obstructive pulmonar y disease, unspecified Z87.891 Personal history of nicotine dependence Office Visit 07/04/2020 11:15a [facility] Alec Mcleod MD Z48.89 Encounter for other specified surgical aftercare Office Visit 06/26/2020 11:15a [facility] Pulmonary/Thoracic Lawralfreda Zhang MD G47.33 Obstructive sleep apnea (adult) (pediatr ic) J47.9 Bronchiectasis, uncomplicate d Office Visit 06/19/2020 9:00a [facility] Alec Mcleod MD Z48.89 Encounter for other specified surgical aftercare J32.4 Chronic pansinusitis Office Visit 06/11/2020 10:30a [facility] Alec Mcleod MD Z48.89 Encounter for other specified surgical aftercare J32.4 Chronic pansinusitis Assessments Date Code Description Provider 12/09/2020 J32.8 [...] Chronic obstructive pulmonary di sease, unspecified Walt Zahng MD 09/09/2020 Z87.891 Personal history of nicotine dep endence Walt Zhang MD 07/04/2020 Z48.89 Encounter for other specified juan rgical aftercare Alec Mcleod MD 06/26/2020 G47.33 Obstructive sleep apnea (adult) (pediatric) Walt Zhang MD 06/26/2020 J47.9 Bronchiectasis, uncomplicated La dustin Zhang MD 06/19/2020 Z48.89 Encounter for other specified juan rgical aftercare Alec Mcleod MD 06/19/2020 J32.4 Chronic pansinusitis Alec ballard MD 06/11/2020 Z48.89 Encounter for other specified juan rgical aftercare Alec Mcleod MD 06/11/2020 J32.4 Chronic pansinusitis Alec ballard MD 06/09/2020 J34.2 Deviated nasal septum Alec street MD 06/09/2020 J32.9 Chronic sinusitis, unspecified R shan Mcleod MD 06/09/2020 J33.9 Nasal polyp, unspecified Alec Mcleod MD Plan of Treatment Future Appointment(s):* 12/16/2020 11:15 am - Bryson Guzman MD at [facility] Functional Status Description No Information Available Mental Status Description No Information Available Referrals Refer to Dr Reason for Referral Status Appt Date Maycol Lund M.D. Needs urgent eval for Extran odal NK/T-CELL lymphoma..nasal type Created [facility] [address] [place] [address] [phone]
--- OUTSIDE RECORDS SUMMARY | 2021-01-23 11:07 | CCD ---
Author Author [facility] Organization [facility] Address Unknown Phone Unavailable Care Team Providers Care Engineering Recruiter Name Role Phone Elly Ayoub Unavailable PROBLEMS Type Condition ICD9-CM Code BAK05-YY Code Onset Dates Condition S tatus W/U Status Risk SNOMED Code Notes Problem JACEK (generalized anxiety disorder) F41.1 Activ e confirmed 45857250 Problem Renal cyst N28.1 Active confirmed 135187176 Problem Prostate cancer screening Z12.5 Active confirmed 731751015 Problem Gastroesophageal reflux disease, esophagitis pre sence not specified K21.9 Active confirmed 713822097 Problem Mixed hyperlipidemia E78.2 Active confirmed 714012238 Problem Allergic rhinitis, unspecified seasonality, unspecifie d trigger J30.9 Active confirmed 83518379 Problem Coronary artery disease invo lving coronary bypass graft of [place] heart without angina pectoris I25.810 Active confirmed 910614 002 Problem IFG (impaired fasting glucose) R73.01 Active confir med 731073756 Problem Overweight (BMI 25.0-29.9) E66.3 Active confirmed 390624639 Problem BALAJI (obstructive sleep apnea) G47.33 Active confirm ed 92352356 Problem Essential hypertension I10 Active confirmed 40617399 Problem Basal cell carcinoma of nose C44.311 Active confirm ed 638578266 Problem Colon cancer screening Z12.11 Active confirmed 503930974 Problem Chronic sinusitis, unspecified J32.9 Active c onfirmed 38712663402042 Problem Recurrent bronchiectasis J47.9 Active confirmed 089983963 ALLERGIES Allergen (clinical drug ingredient) Drug/Non Drug Allergy do cumented on EMR Reaction Allergy Type Onset Date Status zolpidem Ambien([facility] Code:[address]-65) Violent Drug Allergy Active Latex (for allergy use only) Rash Drug Allergy Active clarithromycin Biaxin Dizzy Drug Allergy Active ENCOUNTERS from 1952 to 2020-12-01 Encounter Location Date Provider Diagnosis [facility] [address] [facility] Zeeshan whitlock [phone] [place] [address] Nov, Elly Anitra IMMUNIZATIONS No Information SOCIAL HISTORY Tobacco Use: Social History Observation Description Date Details (start date - stop date) Former Smoker Sex Assigned At : Social History Observation Description Sex Assigned At Unknown Education: Question Answer Notes Level of Education: Finished High School Audit Question Answer Notes Total Score: 2 Interpretation: Alcohol Education Language: Question Answer Notes Languages spoken: [place] Drug and Alcohol Question Answer Notes Total [...] Notes Start Da te End Date Status Trazodone HCl 50 MG 1 tablet at bedtime orally Daily for 90 Active Aspirin 81 MG TAKE ONE TABLET BY MOUTH DAILY Active Fluticasone Propionate 50 MCG/ACT 1 spray in each nost ril Nasally Once a day for 30 day(s) Active ALPRAZolam 0.25 MG 1 tablet orally prn Active Doxazosin Mesylate 4 MG 1 tablet orally Daily for 90 Active Metoprolol Tartrate 100 MG 1 tab Orally bid for 90 Active Lisinopril 40 MG 1 tablet Orally Daily Active Amlodipine Besylate 10 MG 1 tablet Orally Daily for 90 Active Omeprazole 40 MG 1 capsule orally Daily for 90 Active Doxycycline Monohydrate 100 MG 1 capsule Orally bid Feb Active Simvastatin 20 MG 1 tablet in the evening Orally Daily for 90 days Active Stiolto Respimat 2.5-2.5 MCG/ACT 2 puffs Inhalation Once a day Active traZODone HCl 50 MG 1 tablet at bedtime as needed Orally Once a day Jan, Active Ventolin HFA 108 (90 Base) MCG/ACT 2 puffs as needed Inhalation every 6 hrs Feb, Active Claritin 10 MG 1 tablet Orally Once a day for 30 day(s) Active PARoxetine HCl 30 MG 1 tablet in the morning Orally Daily for 90 Active PROCEDURES No Information RESULTS No Results REASON FOR VISIT No Information MEDICAL (GENERAL) HISTORY Type Description Date Medical [...] nicotine use-FEV13.0 L (9 4)/FVC 89/ratio 94%-02/26/19 spirometery-Zhang Medical History ho recurrent bronchiectasis Medical History PVD Medical History JACEK Medical History IFG Medical History 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 Surgical History s/p CABG 03/12/2013 Surgical History [...] Lisinopril 40 MG 1 tablet Orally Daily Ventolin HFA 108 (90 Base) MCG/ACT 2 puffs as needed Inhalat ion every 6 hrs Feb, Metoprolol Tartrate 100 MG 1 tab Orally bid for 90 Doxazosin Mesylate 4 MG 1 tablet orally Daily for 90 traZODone HCl 50 MG 1 tablet at bedtime as needed Orally Onc e a day Jan, Amlodipine Besylate 10 MG 1 tablet Orally Daily for 90 Doxycycline Monohydrate 100 MG 1 capsule Orally bid Feb, ALPRAZolam 0.25 MG 1 tablet orally prn Omeprazole 40 MG 1 capsule orally Daily for 90 Stiolto Respimat 2.5-2.5 MCG/ACT 2 puffs Inhalation Once a day PARoxetine HCl 30 MG 1 tablet in the morning Orally Daily for 90 Trazodone HCl 50 MG 1 tablet at bedtime orally Daily for 90 Aspirin 81 MG TAKE ONE TABLET BY MOUTH DAILY Next Appt Details Provider Name:Elly Ayoub, 2020-09-2 1 10:45:00 AM, [address] [place] [address], , [place], [place], [facility], Insurance Providers Payer Name Payer Address Payer Phone Insured Name Patient Relati onship to Insured Coverage Start Date Coverage End Date MEDICARE Part A and B [address] [facility] [phone] JIM BIANCHI self [facility] [address] [address] [facility] [id number] JIM BIANCHI self
--- OUTSIDE RECORDS SUMMARY | 2021-01-23 11:07 | CCD | Continuity of Care Document ---
Author Author Ed GUZMAN MD Organization Unknown Address [address] [place] [address], [address] [place] [address] Phone [phone] Care Team Providers Care Pipe Fitter Ammonia Name Role Phone Nohemy Kapoor AUTM [phone] AUTM Unavailable Central Scheduling AUTM [phone] Walt Zhang M.D. AUTM [phone] Maycol Lund M.D. AUTM [phone] Problems Active Problems Provider Date Essential hypertension [...] HFA 45mcg/Act Aerosol 2 puffs qid/prn 45gm Wlat Zhang MD 02/17/2019 Xyzal Allergy 24HR 5mg [...] CPT Code Status Date Vaccine Lot # [id number] Given 12/19/2018 Flublock, Quadrivalent Vital Signs Date Vital Result Comment 12/09/2020 11:18am BP Systolic 118 mmHg BP Diastolic 80 mmHg Heart Rate 67 /min O2 % BldC Oximetry 98 % Body Temperature 99.9 F Height 68 inches 5'8" Weight 192.00 lb BMI (Body Mass Index) 29.2 kg/m2 [place] Body Weight 154 lb Weight 87.091 kg BSA (Body Surface Area) 2.01 m2 12/02/2020 8:25am BP Systolic 128 mmHg BP Diastolic 70 mmHg Heart Rate 68 /min O2 % BldC Oximetry 97 % Body Temperature 99.4 F Height 68 inches 5'8" Weight 193.00 lb BMI (Body Mass Index) 29.3 kg/m2 [place] Body Weight 154 lb Weight 87.545 kg BSA (Body Surface Area) 2.01 m2 Results Test Acquired Date Facility Test Result H/L Range Note Nasal & Sinus Cult Gmstain 12/09/2020 [facility] Main Lab [address] [place] [address] [phone] Gram Stain (SEE NOTE) Normal 1 Nasal And Sinus Culture FULL REPORT IN L <SEE NOTE> Normal 2 Laboratory test finding 11/11/2020 [facility] Lab [address] [place] [address] [phone] Nasal And Sinus Culture FULL REPORT IN L <SEE NOTE> N ormal 3 Laboratory test finding 11/11/2020 [facility] Lab [address] [place] [address] [phone] Pathology Request For Service (SEE NOTE) 4 Laboratory test finding 11/11/2020 [facility] Main Lab [address] [place] [address] [phone] Pathology Request For Service (SEE NOTE) 5 Laboratory test finding 09/22/2020 [facility] Main Lab [address] [place] [address] [phone] Nasal And Sinus Culture FULL REPORT IN [...] process/lymphoma, the case will be sent to [facility] hematopathology department for consultation and further [...] aspergillus species. Please see complete report from [facility] hematopathology department [id number], scanned in EMR under pathology module. 11/20/20201835 [...] process/lymphoma, the case will be sent to [facility] hematopathology department for consultation and further [...] ESBL Procedures Date Code Description Status 12/09/2020 77731 Office/Outpatient Established Lo w MDM 20-29 Min Completed 12/02/2020 39502 Office/Outpatient Established Lo w MDM 20-29 Min Completed 12/02/2020 06521 Endoscopy Nasal/Sinus Surgical W /BX/Polypectomy/Debridement Completed 11/19/2020 94071 Office/Outpatient Established Mo d MDM 30-39 Min Completed 11/19/2020 02597 Endoscopy Nasal/Sinus Surgical W /BX/Polypectomy/Debridement Completed 11/11/2020 62921 Endoscopy Nasal Diagnostic Compl eted 10/27/2020 09448 Endoscopy Nasal Diagnostic Compl eted 10/10/2020 97188 Diffusing Capacity Completed 10/10/2020 16869 Plethysmography Determination Adry ng Volumes & Per Airway Resist Completed 10/10/2020 42598 Spirometry Completed 10/09/2020 12358 Office/Outpatient Established Lo w MDM 20-29 Min Completed 09/22/2020 54655 Office/Outpatient Established Mo d MDM 30-39 Min Completed 09/22/2020 99490 Endoscopy Nasal Diagnostic Compl eted 09/09/2020 81852 Office/Outpatient Established Mo d MDM 30-39 Min Completed 09/09/2020 44567 Spirometry Completed 06/26/2020 07521 Office/Outpatient Established Lo w MDM 20-29 Min Completed Medical Devices Description No Information Available Encounters Type Date Location Provider Dx Diagnosis Office Visit 12/02/2020 8:30a [facility] Hamilton Fierro J32.8 Other chronic sinusitis Office Visit 11/19/2020 10:45a [facility] [place] Fierro J32.8 Other chronic sinusitis Office Visit 10/09/2020 10:30a [facility] Alec Mcleod MD J01.90 Acute sinusitis, unspecified Office Visit 09/22/2020 1:30p [facility] Alec Mcleod MD J01.90 Acute sinusitis, unspecified Office Visit 09/09/2020 10:30a [facility] Pulmonary/Thoracic Markell Zhang MD G47.33 Obstructive sleep apnea (adult) (pediatr ic) J44.9 Chronic obstructive pulmonar y disease, unspecified Z87.891 Personal history of nicotine dependence Office Visit 07/04/2020 11:15a [facility] Alec Mcleod MD Z48.89 Encounter for other specified surgical aftercare Office Visit 06/26/2020 11:15a [facility] Pulmonary/Thoracic Markell Zhang MD G47.33 Obstructive sleep apnea (adult) (pediatr ic) J47.9 Bronchiectasis, uncomplicate d Office Visit 06/19/2020 9:00a [facility] Alec Mcleod MD Z48.89 Encounter for other specified surgical aftercare J32.4 Chronic pansinusitis Office Visit 06/11/2020 10:30a [facility] lAec Mcleod MD Z48.89 Encounter for other specified [...] Zhang MD 06/26/2020 J47.9 Bronchiectasis, uncomplicated La wrhilario Zhang MD 06/19/2020 Z48.89 Encounter for other specified juan rgical aftercare Alec Mcleod MD 06/19/2020 J32.4 Chronic pansinusitis Alec ballard MD 06/11/2020 Z48.89 Encounter for other specified juan rgical aftercare Alec Mcleod MD 06/11/2020 J32.4 Chronic pansinusitis Alec ballard MD Plan of Treatment Future Appointment(s):* 12/16/2020 11:15 am - Bryson Guzman MD at [facility] Functional Status Description No Information Available Mental Status Description No Information Available Referrals Refer to Reason for Referral Status Appt Date Maycol Lund M.D. 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
--- OUTSIDE RECORDS SUMMARY | 2021-01-23 11:07 | CCD | Continuity of Care Document ---
Author Author Ed GUZMAN MD Organization Unknown Address [address] [place] [address], [address] [place] [address] Phone [phone] Care Team Providers Care Jewelry Polisher Name Role Phone Nohemy Kapoor AUTM AUTM Unavailable Central Scheduling AUTM [phone] Elly Ayoub M.D. AUTM [phone] Walt Zhang M.D. AUTM [phone] Maycol Lund M.D. AUTM [phone] Problems Active Problems Provider Date Essential hypertension [...] CPT Code Status Date Vaccine Lot # [id number] Given 12/19/2018 Flublock, Quadrivalent Vital Signs Date Vital Result Comment 12/02/2020 8:25am BP Systolic 128 mmHg BP Diastolic 70 mmHg Heart Rate 68 /min O2 % BldC Oximetry 97 % Body Temperature 99.4 F Height 68 inches 5'8" Weight 193.00 lb BMI (Body Mass Index) 29.3 kg/m2 [place] Body Weight 154 lb Weight 87.545 kg BSA (Body Surface Area) 2.01 m2 11/19/2020 10:48am BP Systolic 130 mmHg BP Diastolic 90 mmHg Heart Rate 70 /min O2 % BldC Oximetry 98 % Body Temperature 100.1 F Height 68 inches 5'8" Weight 188.00 lb BMI (Body Mass Index) 28.6 kg/m2 [place] Body Weight 154 lb Weight 85.277 kg BSA (Body Surface Area) 1.99 m2 Results Test Acquired Date Facility Test Result H/L Range Note Laboratory test finding 11/11/2020 [facility] Main Lab [address] [place], [place] [phone] Nasal And Sinus Culture FULL REPORT IN L <SEE NOTE> N ormal 1 Laboratory test finding 11/11/2020 [facility] Main Lab [address] [place] [phone] Pathology Request For Service (SEE NOTE) 2 Laboratory test finding 11/11/2020 [facility] Main Lab [address] [place] [address] [phone] Pathology Request For Service (SEE NOTE) 3 Laboratory test finding 09/22/2020 [facility] Main Lab [address] [place] [address] [phone] Nasal And Sinus Culture FULL REPORT IN L <SEE NOTE> N ormal 4 Laboratory test finding 06/09/2020 [facility] Main Lab [address] [place] [address] [phone] Pathology Request For Service (SEE NOTE) 5 [...] process/lymphoma, the case will be sent to [facility] hematopathology department for consultation and further work [...] MD 11/14/2020 0909 3 Addendum 1 Entered: Left nasal mucosa, biopsy: Extranodal NK/ T-cell lymphoma, 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 Please see complete report from [facility] hematopathology department [id number], scanned in EMR under pathology module. 11/20/20201835 [...] process/lymphoma, the case will be sent to [facility] hematopathology department for consultation and further work [...] aggregate. All in one. -SV 06/11/2020 - 115 Signed ELMA MILLS MD 06/12/2020 0901 Procedures Date Code Description Status 12/02/2020 54490 Endoscopy Nasal/Sinus Surgical W /BX/Polypectomy/Debridement Completed 12/02/2020 95161 Office/Outpatient Established Lo w MDM 20-29 Min Completed 11/19/2020 58697 Office/Outpatient Established Mo d MDM 30-39 Min Completed 11/19/2020 57639 Endoscopy Nasal/Sinus Surgical W /BX/Polypectomy/Debridement Completed 11/11/2020 15210 Endoscopy Nasal Diagnostic Compl eted 10/27/2020 42585 Endoscopy Nasal Diagnostic Compl eted 10/10/2020 18086 Diffusing Capacity Completed 10/10/2020 50502 Plethysmography Determination Adry ng Volumes & Per Airway Resist Completed 10/10/2020 37525 Spirometry Completed 10/09/2020 72904 Office/Outpatient Established Lo w MDM 20-29 Min Completed 09/22/2020 07864 Office/Outpatient Established Mo d MDM 30-39 Min Completed 09/22/2020 76406 Endoscopy Nasal Diagnostic Compl eted 09/09/2020 49086 Office/Outpatient Established Mo d MDM 30-39 Min Completed 09/09/2020 02283 Spirometry Completed 06/26/2020 33760 Office/Outpatient Established Lo w MDM 20-29 Min Completed 06/09/2020 82651 Endoscopy Nasal/Sinu s Surgical Remove Tissue From Maxillary Sinus Completed 06/09/2020 75590 Endoscopy Nasal/Sinus Surgical W / Ethmoidectomy Total Completed 06/09/2020 60968 Septoplasty/Submucous Resection Contour Or Replacement W/Graft Completed Medical Devices Description No Information Available Encounters Type Date Location Provider Dx Diagnosis Office Visit 12/02/2020 8:30a [facility] Hamilton Fierro J32.8 Other chronic sinusitis Office Visit 11/19/2020 10:45a [facility] [place] Fierro J32.8 Other chronic sinusitis Office Visit 10/09/2020 10:30a [facility] Alec Mcleod MD J01.90 Acute sinusitis, unspecified Office Visit 09/22/2020 1:30p [facility] Alec Mcleod MD J01.90 Acute sinusitis, unspecified Office Visit 09/09/2020 10:30a [facility] Pulmonary/Thoracic Markell Zhang MD G47.33 Obstructive sleep apnea (adult) (pediatr ic) J44.9 Chronic obstructive pulmonar y disease, unspecified Z87.891 Personal history of nicotine dependence Office Visit 07/04/2020 11:15a [facility] Alec Mcleod MD Z48.89 Encounter for other specified surgical aftercare Office Visit 06/26/2020 11:15a [facility] Pulmonary/Thoracic Markell Zhang MD G47.33 Obstructive sleep apnea (adult) (pediatr ic) J47.9 Bronchiectasis, uncomplicate d Office Visit 06/19/2020 9:00a [facility] Alec Mcleod MD Z48.89 Encounter for other specified surgical aftercare J32.4 Chronic pansinusitis Office Visit 06/11/2020 10:30a [facility] Alec Mcleod MD Z48.89 Encounter for other specified surgical aftercare J32.4 Chronic pansinusitis Assessments Date Code Description Provider 12/02/2020 J32.8 Other chronic sinusitis Bryson richardson [...] Mcleod MD Plan of Treatment Future Appointment(s):* 12/10/2020 10:30 am - Bryson Guzman MD at [facility] Functional Status Description No Information Available Mental Status Description No Information Available Referrals Refer to Reason for Referral Status Appt Date Maycol Lund M.D. 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
--- OUTSIDE RECORDS SUMMARY | 2021-01-23 11:07 | CCD | Continuity of Care Document ---
Author Author Ed GUZMAN MD Organization Unknown Address [address] [place] [address], [address] [place] [address] Phone [phone] Care Team Providers Care Collections Professional Name Role Phone Nohemy Kapoor AUTM AUTM Unavailable Central Scheduling AUTM [phone] Elly Ayoub M.D. AUTM [phone] Walt Zhang M.D. AUTM [phone] Problems Active Problems Provider Date Essential hypertension [...] SIG Qnty Indications Ordering Provide r Date Mupirocin Calcium 2% Cream 1 teaspoon mixed with salt packet daily as directed 60gm Alec Mcleod MD 09/22/2020 CPAP Device 12cm lcw Walt Zhang MD 07/18/2020 Stiolto Respimat 2.5-2.5mcg/Act Ae rosol 2 puffs once daily 12gm Walt Zhang MD 02/17/2019 Xopenex HFA 45mcg/Act Aerosol 2 puffs qid/prn 45gm Walt Zhang MD 02/17/2019 Xyzal Allergy 24HR 5mg Tablets 1 by mouth every day 90tabs Walt Zhang MD 02/17/2019 Aerochamber Plus Misc as directed w/ hfa 1units Walt Zhang MD 05/18/2018 Simvastatin 20mg Tablets 1 by mouth every [...] 14tabs Alec Mcleod MD 021 - 10/23/2020 Cipro 500mg Tablets 1 by mouth twice [...] CPT Code Status Date Vaccine Lot # [id number] Given 12/19/2018 Afluria, Quadrivalent, 0.5ml , [facility]# [id number] Vital Signs Date Vital Result Comment 11/19/2020 10:48am BP Systolic 130 mmHg BP Diastolic 90 mmHg Heart Rate 70 /min O2 % BldC Oximetry 98 % Body Temperature 100.1 F Height 68 inches 5'8" Weight 188.00 lb BMI (Body Mass Index) 28.6 kg/m2 [place] Body Weight 154 lb Weight 85.277 kg BSA (Body Surface Area) 1.99 m2 11/11/2020 9:56am Height 68 inches 5'8" Weight 189.00 lb BMI (Body Mass Index) 28.7 kg/m2 [place] Body Weight 154 lb Weight 85.730 kg BSA (Body Surface Area) 2.00 m2 Results Test Acquired Date Facility Test Result H/L Range Note Laboratory test finding 11/11/2020 [facility] Main Lab [address] [place] [phone] Nasal And Sinus Culture FULL REPORT IN L <SEE NOTE> N ormal 1 Laboratory test finding 11/11/2020 [facility] Main Lab [address] [place] [address] [phone] Pathology Request For Service (SEE NOTE) 2 Laboratory test finding 11/11/2020 [facility] Main Lab [address] [place] [address] [phone] Pathology Request For Service (SEE NOTE) 3 Laboratory test finding 09/22/2020 [facility] Main Lab [address] [place] [address] [phone] Nasal And Sinus Culture FULL REPORT IN L <SEE NOTE> N ormal 4 Laboratory test finding 06/09/2020 [facility] Main Lab [address] [place] [address] [phone] Pathology Request For Service (SEE NOTE) 5 [...] process/lymphoma, the case will be sent to [facility] hematopathology department for consultation and further [...] Sectioned all in one. 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 Please see complete report from [facility] hematopathology department [id number], scanned in EMR under pathology module. 11/20/20201835 [...] process/lymphoma, the case will be sent to [facility] hematopathology department for consultation and further [...] 06/12/2020 0901 Procedures Date Code Description Status 11/19/2020 29083 Office/Outpatient Established Mo d MDM 30-39 Min Completed 11/11/2020 78441 Endoscopy Nasal Diagnostic Compl eted 10/27/2020 55937 Endoscopy Nasal Diagnostic Compl eted 10/10/2020 75924 Diffusing Capacity Completed 10/10/2020 53811 Plethysmography Determination Adry ng Volumes & Per Airway Resist Completed 10/10/2020 51751 Spirometry Completed 10/09/2020 51961 Office/Outpatient Established Lo w MDM 20-29 Min Completed 09/22/2020 22192 Office/Outpatient Established Mo d MDM 30-39 Min Completed 09/22/2020 29012 Endoscopy Nasal Diagnostic Compl eted 09/09/2020 30072 Office/Outpatient Established Mo d MDM 30-39 Min Completed 09/09/2020 94800 Spirometry Completed 06/26/2020 25433 Office/Outpatient Established Lo w MDM 20-29 Min Completed 06/09/2020 43708 Endoscopy Nasal/Sinu s Surgical Remove Tissue From Maxillary Sinus Completed 06/09/2020 91664 Endoscopy Nasal/Sinus Surgical W / Ethmoidectomy Total Completed 06/09/2020 54875 Septoplasty/Submucous Resection Contour Or Replacement W/Graft Completed Medical Devices Description No Information Available Encounters Type Date Location Provider Dx Diagnosis Office Visit 10/09/2020 10:30a [facility] Alec Mcleod MD J01.90 Acute sinusitis, unspecified Office Visit 09/22/2020 1:30p [facility] Alec Mcleod MD J01.90 Acute sinusitis, unspecified Office Visit 09/09/2020 10:30a [facility] Pulmonary/Thoracic Markell Zhang MD G47.33 Obstructive sleep apnea (adult) (pediatr ic) J44.9 Chronic obstructive pulmonar y disease, unspecified Z87.891 Personal history of nicotine dependence Office Visit 07/04/2020 11:15a [facility] Alec Mcleod MD Z48.89 Encounter for other specified surgical aftercare Office Visit 06/26/2020 11:15a [facility] Pulmonary/Thoracic Markell Zhang MD G47.33 Obstructive sleep apnea (adult) (pediatr ic) J47.9 Bronchiectasis, uncomplicate d Office Visit 06/19/2020 9:00a [facility] Alec Mcleod MD Z48.89 Encounter for other specified surgical aftercare J32.4 Chronic pansinusitis Office Visit 06/11/2020 10:30a [facility] Alec Mcleod MD Z48.89 Encounter for other specified surgical aftercare J32.4 Chronic pansinusitis Assessments Date Code Description Provider 11/19/2020 J32.8 Other chronic sinusitis Bryson richardson [...] Mcleod MD Plan of Treatment Future Appointment(s):* 12/02/2020 11:15 am - Bryson Guzman MD at [facility] ENT [facility] Functional Status Description No Information Available Mental Status Description No Information Available Referrals Description No Information Available
--- OUTSIDE RECORDS SUMMARY | 2021-01-23 11:07 | CCD | Continuity of Care Document ---
Author Author Ed GUZMAN MD Organization Unknown Address [address] [place] [address], [address] [place] [address] Phone [phone] Care Team Providers Care Supervisor Orchard Name Role Phone Nohemy Kapoor AUTM AUTM Unavailable Central Scheduling AUTM [phone] Walt Zhang M.D. AUTM [phone] Maycol Lund M.D. AUTM [phone] Problems Active Problems Provider Date Essential hypertension [...] CPT Code Status Date Vaccine Lot # [id number] Given 12/19/2018 Flublock, Quadrivalent Vital Signs Date Vital Result Comment 12/09/2020 11:18am BP Systolic 118 mmHg BP Diastolic 80 mmHg Heart Rate 67 /min O2 % BldC Oximetry 98 % Body Temperature 99.9 F Height 68 inches 5'8" Weight 192.00 lb BMI (Body Mass Index) 29.2 kg/m2 [place] Body Weight 154 lb Weight 87.091 kg BSA (Body Surface Area) 2.01 m2 12/02/2020 8:25am BP Systolic 128 mmHg BP Diastolic 70 mmHg Heart Rate 68 /min O2 % BldC Oximetry 97 % Body Temperature 99.4 F Height 68 inches 5'8" Weight 193.00 lb BMI (Body Mass Index) 29.3 kg/m2 [place] Body Weight 154 lb Weight 87.545 kg BSA (Body Surface Area) 2.01 m2 Results Test Acquired Date Facility Test Result H/L Range Note Laboratory test finding 11/11/2020 [facility] Main Lab [address] [place] [address] [phone] Nasal And Sinus Culture FULL REPORT IN L <SEE NOTE> N ormal 1 Laboratory test finding 11/11/2020 [facility] Main Lab [address] [place] [address] [phone] Pathology Request For Service (SEE NOTE) 2 Laboratory test finding 11/11/2020 [facility] Lab [address] [place] [address] 47862 [phone] Pathology Request For Service (SEE NOTE) 3 Laboratory test finding 09/22/2020 [facility] Lab [address] [place] [address] [phone] Nasal And Sinus Culture FULL REPORT IN L <SEE NOTE> N ormal 4 Laboratory test finding 06/09/2020 [facility] Main Lab [address] [place] [address] [phone] Pathology Request For Service (SEE NOTE) 5 [...] process/lymphoma, the case will be sent to [facility] hematopathology department for consultation and [...] - 11/12/20201437 Signed Genesis La MD 11/14/2020908 3 Addendum 1 Entered: 183 Left nasal mucosa, biopsy: Extranodal NK/ T-cell lymphoma, 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 Please see complete report from [facility] hematopathology department [id number], scanned in EMR under pathology module. 11/20/20201835 [...] process/lymphoma, the case will be sent to [facility] hematopathology department for consultation and [...] 0901 Procedures Date Code Description Status 12/02/2020 43486 Endoscopy Nasal/Sinus Surgical W /BX/Polypectomy/Debridement Completed 12/02/2020 30090 Office/Outpatient Established Lo w MDM 20-29 Min Completed 11/19/2020 74404 Office/Outpatient Established Mo d MDM 30-39 Min Completed 11/19/2020 68628 Endoscopy Nasal/Sinus Surgical W /BX/Polypectomy/Debridement Completed 11/11/2020 83313 Endoscopy Nasal Diagnostic Compl eted 10/27/2020 25221 Endoscopy Nasal Diagnostic Compl eted 10/10/2020 19708 Diffusing Capacity Completed 10/10/2020 93446 Plethysmography Determination Adry ng Volumes & Per Airway Resist Completed 10/10/2020 85592 Spirometry Completed 10/09/2020 23611 Office/Outpatient Established Lo w MDM 20-29 Min Completed 09/22/2020 63450 Office/Outpatient Established Mo d MDM 30-39 Min Completed 09/22/2020 02870 Endoscopy Nasal Diagnostic Compl eted 09/09/2020 49992 Office/Outpatient Established Mo d MDM 30-39 Min Completed 09/09/2020 06571 Spirometry Completed 06/26/2020 53846 Office/Outpatient Established Lo w MDM 20-29 Min Completed 06/09/2020 51686 Endoscopy Nasal/Sinu s Surgical Remove Tissue From Maxillary Sinus Completed 06/09/2020 51959 Endoscopy Nasal/Sinus Surgical W / Ethmoidectomy Total Completed 06/09/2020 70721 Septoplasty/Submucous Resection Contour Or Replacement W/Graft Completed Medical Devices Description No Information Available Encounters Type Date Location Provider Dx Diagnosis Office Visit 12/02/2020 8:30a [facility] [place] J32.8 Other chronic sinusitis Office Visit 11/19/2020 10:45a [facility] [place] J32.8 Other chronic sinusitis Office Visit 10/09/2020 10:30a [facility] Alec Mcleod MD J01.90 Acute sinusitis, unspecified Office Visit 09/22/2020 1:30p [facility] Alec Mcleod MD J01.90 Acute sinusitis, unspecified Office Visit 09/09/2020 10:30a [facility] Markell Zhang MD G47.33 Obstructive sleep apnea (adult) (pediatr ic) J44.9 Chronic obstructive pulmonar y disease, unspecified Z87.891 Personal history of nicotine dependence Office Visit 07/04/2020 11:15a [facility] Alec Mcleod MD Z48.89 Encounter for other specified surgical aftercare Office Visit 06/26/2020 11:15a [facility] Markell Zhang MD G47.33 Obstructive sleep apnea (adult) (pediatr ic) J47.9 Bronchiectasis, uncomplicate d Office Visit 06/19/2020 9:00a [facility] Alec Mcleod MD Z48.89 Encounter for other specified surgical aftercare J32.4 Chronic pansinusitis Office Visit 06/11/2020 10:30a [facility] Alec Mcleod MD Z48.89 Encounter [...] unspecified Alec Mcleod MD Plan of Treatment 12/09/2020 - Bryson Guzman MD* J32.8 Other chronic sinusitis* Comments:* We discussed the possibility for continued debridement as needed. He believes it helps significantly and would like to continue once a week unless it is not needed. We will schedule this around his other oncology appointments to continue treatment. I am happy to see him back in the meantime for changes. Functional Status Description No Information Available Mental Status Description No Information Available Referrals Refer to Reason for Referral Status Appt Maycol Conway M.D. 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 Radiation On[facility] [address] [place], [place] [address] [phone]
--- OUTSIDE RECORDS SUMMARY | 2021-01-23 11:07 | CCD ---
Author Author [facility] Organization [facility] Address Unknown Phone Unavailable Care Team Providers Care Workers' Compensation Claims Examiner Name Role Phone Elly Ayoub Unavailable PROBLEMS Type Condition ICD9-CM Code WIT01-QG Code Onset Dates Condition S tatus W/U Status Risk SNOMED Code Notes Problem Overweight (BMI 25.0-29.9) E66.3 Active confirmed 086990314 Problem Essential hypertension I10 Active confirmed 95527311 Problem Renal cyst N28.1 Active confirmed 211352673 Problem Mixed hyperlipidemia E78.2 Active confirmed 986315750 Problem Gastroesophageal reflux disease, esophagitis pre sence not specified K21.9 Active confirmed 890405602 Problem JACEK (generalized anxiety disorder) F41.1 Activ e confirmed 01964263 Problem Coronary artery disease invo lving coronary bypass graft of menominee heart without angina pectoris I25.810 Active confirmed 803884 002 Problem Allergic rhinitis, unspecified seasonality, unspecifie d trigger J30.9 Active confirmed 88793982 Problem Chronic sinusitis, unspecified J32.9 Active c onfirmed 43809315467093 Problem IFG (impaired fasting glucose) R73.01 Active confir med 185354591 Problem Recurrent bronchiectasis J47.9 Active confirmed 033240097 Problem Obstructive sleep apnea G47.33 Active confirmed 28915351 Problem Colon cancer screening Z12.11 Active confirmed 783597354 Problem Chronic maxillary sinusitis J32.0 Active confirmed 80335139 Problem Basal cell carcinoma of nose C44.311 Active confirm ed 915284384 Problem Prostate cancer screening Z12.5 Active confirmed 464795259 Problem Lymphoma of lymph nodes of head, 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 Active confirmed 47768892 Problem Aspergillosis B44.9 Active confirmed 406033 06 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 1099 63097 Problem Coronary artery disease invo lving menominee coronary artery of menominee heart without angina pectoris I25.10 Active confirmed 217204 000 ALLERGIES Allergen (clinical drug ingredient) Drug/Non Drug Allergy do cumented on EMR Reaction Allergy Type Onset Date Status helena Veliz([facility] Code:[address]-62) Violent Drug Allergy Active Latex (for allergy use only) Rash Drug Allergy Active clarithromycin Biaxin Dizzy Drug Allergy Active ENCOUNTERS from 1950 to 2020-12-05 Encounter Location Date Provider Diagnosis [facility] [place] [address] [facility] [phone] [place] [address] Nov, Elly Anitra Aspergillosis B44.9 ; Chronic maxillary sinusitis J32.0 ; Obstructive sleep apnea G47.33 ; 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 ; Coronary artery disease involving menominee coronary artery of menominee heart without angina pectoris I25.10 and Allergic rhinitis, unspecified seasonality, unspecified trigger J30.9 IMMUNIZATIONS No Information SOCIAL HISTORY Tobacco Use: Social History Observation Description Date Details (start date - stop date) Former Smoker Sex Assigned At : Social History Observation Description Sex Assigned At Unknown Education: Question Answer Notes Level of Education: Finished High School Audit Question Answer Notes Total Score: 2 Interpretation: Alcohol Education Language: Question Answer Notes Languages spoken: [place] [employer] [facility] [employer] Question Answer Notes Total [...] FOR REFERRAL No Information VITAL SIGNS Weight 192 lbs Nov, Weight-kg 87.09 kg Nov, Height 70.5 in Nov, BMI 27.16 kg/m2 Nov, Heart Rate 72 /min Nov, Respiratory Rate 18 /min Nov, Temperature 98.9 degrees Fahrenheit Nov, Oximetry 98% Nov, Blood pressure systolic 144 mm Hg Nov, Blood pressure diastolic 72 mm Hg Nov, MEDICATIONS Medication SIG (Take, Route, Frequency, Duration) [...] Information RESULTS No Results REASON FOR VISIT aspergillosis MEDICAL (GENERAL) HISTORY Type Description Date Medical History CAD-s/p CABG/ MVR 03/11/13 S -04/26/18 ETT-low risk , excellent tolerance to 10 [...] Medical History 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 Guzman who will be sending the specimen for fungal culture Patient will also have blood work looking for Aspergillus antibodies and Aspergillus galactomannan I have reviewed CT scan of sinuses with radiology there is no evidence of fungal ball destruction of bones around the sinuses or orbital involvement. Most likely this is colonization with Aspergillus rather than true infection. Since the patient is going to get radiation and chemotherapy I will treat him in the meantime with pseudoptosis and prophylactic doses and will discuss the case with hematology oncology Nov, Chronic maxillary sinusitis (ICD-10 - J32.0) Patient had left anterior ethmoidectomy and septoplasty done 06/2020 without improvement of his symptoms. He had another biopsy done by Dr. Guzman on 11/11 which was consistent with extranodal T-cell lymphoma and concern for aspergillosis as they were hyphae numerous morphology suggestive of Aspergillus species. Since the patient will be undergoing radiation/chemotherapy for lymphoma I have opted to treat him for aspergillosis. The patient will have a fungal smear and culture done at Dr. Guzman's office next week. Nov, Obstructive sleep apnea (ICD-10 - G47.33) He follows up with Dr. 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 Ruffin for evaluation of radiation and has been referred to [email or web address] for hematology oncology appointment Nov, Coronary artery disease invo lving menominee coronary artery of menominee heart without angina pectoris (ICD-10 - I25.10) Nov, Allergic rhinitis, unspecifi ed seasonality, unspecified trigger (ICD-10 - J30.9) PLAN OF TREATMENT Medication Medication Name Sig Start Date Stop Date Lisinopril 40 MG 1 tablet Orally Daily Simvastatin 20 MG 1 tablet in the evening Orally Daily Voriconazole 200 MG 1 tab Orally tid for 2 days then BID for 30 Days Nov, Metoprolol Tartrate 100 MG 1 tab Orally bid Treatment Notes Assessment Notes Clinical Notes Aspergillosis Pathology from 2020 shows necrotic tissue fragments infiltrated by atypical medium-sized cells numerous fungal hyphae with morphology suggestive of aspergillus species and nasal type NK/T-cell lym phomaCase was discussed with Dr. Guzman who will be sending the specimen for fungal culturePatient will also have blood work looking for Aspergillus antibodies and Aspergillus galactomannanI have reviewed CT scan of sinuses with radiology there is no evidence of fungal ball destruction of bones around the sinuses or orbital involvement. Most likely this is colonization with Aspergillus rather than true infection. Since the patient is going to get radiation and chemotherapy I will treat him in the meantime with pseudoptosis and prophylactic doses and will discuss the case with hematology oncology Chronic maxillary sinusitis Patient had left anterior ethmoidectomy and septoplasty done 06/2020 without improvement of his symptoms. He had another biopsy done by Dr. Guzman on 11/11 which was consistent with extranodal T-cell lymphoma and concern for aspergillosis as they were hyphae numerous morphology suggestive of Aspergillus species. Since the patient will be undergoing radiation/chemotherapy for lymphoma I have opted to treat him for aspergillosis. The patient will have a fungal smear and culture done at Dr. Guzman's office next week. Obstructive sleep apnea He follows up Dr. Zhang's office on CPAP of 12 T-cell lymphoma He was seen by Dr. Junaid hall for evaluation of radiation and has been referred to [email or web address] for hematology oncology appointment Treatment Notes Test Name Order Date ASPERGILLUS ANTIBODIES 2020-12-02 CBC - Complete Blood Count 2020-12-02 Comprehensive Metabolic Profile (CMP) 2020-12-02 ERYTHROCYTE SEDIMENTATION RATE 2020-12-02 VORICONAZOLE LEVEL 2020-12-02 FUNGUS SM & CULT OTHER SOURCE 2020-12-02 ASPERGILLUS GALACTOMANNAN AG (ASPAG) 2020-12-02 Next Appt Details 2 Weeks Reason: Provider Name:Elly Ayoub, 5 11:00:00 AM, [address] [facility], , [place], [place], [facility], Insurance Providers Payer Name Payer Address Payer Phone Insured Name Patient Relati onship to Insured Coverage Start Date Coverage End Date MEDICARE Part A and B [address] [facility] [phone] [facility] [address] [address] [facility] [phone] JIM BIANCHI self
--- OUTSIDE RECORDS SUMMARY | 2021-01-23 11:07 | CCD ---
Continuity of Care Document (CCD) Created on: 11/27/2020 Ed Olson External Reference #: [id number] : [id number] Sex: Male Author Author Ed GUZMAN MD Organization Unknown Address [address] [place] [address], [address] [place] [address] Phone [phone] Care Team Providers Care Customer Retention Specialist Name Role Phone Nohemy Kapoor AUTM [phone] AUTM Unavailable Central Scheduling AUTM [phone] Elly Ayoub M.D. AUTM [phone] Walt Zhang M.D. AUTM [phone] Maycol Lund M.D. AUTM [phone] Problems Active Problems Provider Date Essential hypertension [...] by mouth twice a day 20tabs Walt Zhnag MD 08/21/2020 - 08/31/2020 Immunizations CPT Code Status Date Vaccine Lot # [id number] Given 12/19/2018 Flublock, Quadrivalent Vital Signs Date Vital Result Comment 11/19/2020 10:48am BP Systolic 130 mmHg BP Diastolic 90 mmHg Heart Rate 70 /min O2 % BldC Oximetry 98 % Body Temperature 100.1 F Height 68 inches 5'8" Weight 188.00 lb BMI (Body Mass Index) 28.6 kg/m2 [place] Body Weight 154 lb Weight 85.277 kg BSA (Body Surface Area) 1.99 m2 11/11/2020 9:56am Height 68 inches 5'8" Weight 189.00 lb BMI (Body Mass Index) 28.7 kg/m2 [place] Body Weight 154 lb Weight 85.730 kg BSA (Body Surface Area) 2.00 m2 Results Test Acquired Date Facility Test Result H/L Range Note Laboratory test finding 11/11/2020 [facility] Main Lab [address] [place] [address] [phone] Nasal And Sinus Culture FULL REPORT IN L <SEE NOTE> N ormal 1 Laboratory test finding 11/11/2020 [facility] [address] [place] [address] [phone] Pathology Request For Service (SEE NOTE) 2 Laboratory test finding 11/11/2020 [facility] [address] [place] [address] [phone] Pathology Request For Service (SEE NOTE) 3 Laboratory test finding 09/22/2020 [facility] Lab [address] [place] [address] [phone] Nasal And Sinus Culture FULL REPORT IN L <SEE NOTE> N ormal 4 Laboratory test finding 06/09/2020 [facility] [address] [place] [address] [phone] Pathology Request For Service (SEE NOTE) 5 [...] process/lymphoma, the case will be sent to [facility] hematopathology department for consultation and [...] aspergillus species. Please see complete report from [facility] hematopathology department [id number], scanned in EMR under pathology module. 11/20/20201835 [...] process/lymphoma, the case will be sent to [facility] hematopathology department for consultation and [...] tissue. No evidence for malignancy. 06/11/2020 - 115 CLINICAL DIAGNOSIS Deviated septum, nasal polyps, chronic [...] 0901 Procedures Date Code Description Status 11/19/2020 42022 Office/Outpatient Established Mo d MDM 30-39 Min Completed 11/19/2020 44804 Endoscopy Nasal/Sinus Surgical W /BX/Polypectomy/Debridement Completed 11/11/2020 02258 Endoscopy Nasal Diagnostic Compl eted 10/27/2020 12396 Endoscopy Nasal Diagnostic Compl eted 10/10/2020 33292 Diffusing Capacity Completed 10/10/2020 61758 Plethysmography Determination Adry ng Volumes & Per Airway Resist Completed 10/10/2020 30085 Spirometry Completed 10/09/2020 39178 Office/Outpatient Established Lo w MDM 20-29 Min Completed 09/22/2020 29238 Office/Outpatient Established Mo d MDM 30-39 Min Completed 09/22/2020 51849 Endoscopy Nasal Diagnostic Compl eted 09/09/2020 30709 Office/Outpatient Established Mo d MDM 30-39 Min Completed 09/09/2020 17754 Spirometry Completed 06/26/2020 28383 Office/Outpatient Established Lo w MDM 20-29 Min Completed 06/09/2020 76853 Endoscopy Nasal/Sinu s Surgical Remove Tissue From Maxillary Sinus Completed 06/09/2020 97254 Endoscopy Nasal/Sinus Surgical W / Ethmoidectomy Total Completed 06/09/2020 50496 Septoplasty/Submucous Resection Contour Or Replacement W/Graft Completed Medical Devices Description No Information Available Encounters Type Date Location Provider Dx Diagnosis Office Visit 11/19/2020 10:45a [facility] [place] J32.8 Other chronic sinusitis Office Visit 10/09/2020 10:30a [facility] Alec Mcleod MD J01.90 Acute sinusitis, unspecified Office Visit 09/22/2020 1:30p [facility] Alec Mcleod MD J01.90 Acute sinusitis, unspecified Office Visit 09/09/2020 10:30a [facility]acic Markell Zhang MD G47.33 Obstructive sleep apnea (adult) (pediatr ic) J44.9 Chronic obstructive pulmonar y disease, unspecified Z87.891 Personal history of nicotine dependence Office Visit 07/04/2020 11:15a [facility] Alec Mcleod MD Z48.89 Encounter for other specified surgical aftercare Office Visit 06/26/2020 11:15a [facility]acic Markell Zhang MD G47.33 Obstructive sleep apnea (adult) (pediatr ic) J47.9 Bronchiectasis, uncomplicate d Office Visit 06/19/2020 9:00a [facility] Alec Mcleod MD Z48.89 Encounter for other specified surgical aftercare J32.4 Chronic pansinusitis Office Visit 06/11/2020 10:30a [facility] Alec Mcleod MD Z48.89 Encounter [...] G47.33 Obstructive sleep apnea (adult) (pediatric) Walt Zahng MD 06/26/2020 J47.9 Bronchiectasis, uncomplicated [place] wrhilario [...] 11:15 am - Bryson Guzman MD at [facility] Functional Status Description No Information Available Mental Status Description No Information Available Referrals Refer to Reason for Referral Status Appt Maycol Conway M.D. Needs urgent eval for Extran odal NK/T-CELL lymphoma..nasal type Created [facility] Radiation Oncol [address] [place] [address] [phone]
--- OUTSIDE RECORDS SUMMARY | 2021-01-23 11:07 | CCD ---
Author Author [facility] Organization [facility] Address Unknown Phone Unavailable Care Team Providers Care Systems Navigator Name Role Phone Elly Ayoub Unavailable PROBLEMS Type Condition ICD9-CM Code WSX26-AR Code Onset Dates Condition S tatus W/U Status Risk SNOMED Code Notes Problem Overweight (BMI 25.0-29.9) E66.3 Active confirmed 693308976 Problem Essential hypertension I10 Active confirmed 50124837 Problem Renal cyst N28.1 Active confirmed 580789308 Problem Mixed hyperlipidemia E78.2 Active confirmed 162890080 Problem Gastroesophageal reflux disease, esophagitis pre sence not specified K21.9 Active confirmed 792353000 Problem JACEK (generalized anxiety disorder) F41.1 Activ e confirmed 45996627 Problem Coronary artery disease invo lving coronary bypass graft of lumbee heart without angina pectoris I25.810 Active confirmed 296190 002 Problem Allergic rhinitis, unspecified seasonality, unspecifie d trigger J30.9 Active confirmed 08396542 Problem Chronic sinusitis, unspecified J32.9 Active c onfirmed 22560958712339 Problem IFG (impaired fasting glucose) R73.01 Active confir med 897252175 Problem Recurrent bronchiectasis J47.9 Active confirmed 218200387 Problem Obstructive sleep apnea G47.33 Active confirmed 58550436 Problem Colon cancer screening Z12.11 Active confirmed 915700014 Problem Chronic maxillary sinusitis J32.0 Active confirmed 93140419 Problem Basal cell carcinoma of nose C44.311 Active confirm ed 956843045 Problem Prostate cancer screening Z12.5 Active confirmed 896130756 Problem Lymphoma of lymph nodes of head, 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 Active confirmed 80182921 Problem Aspergillosis B44.9 Active confirmed 299284 06 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 1099 87665 Problem Coronary artery disease invo lving lumbee coronary artery of lumbee heart without angina pectoris I25.10 Active confirmed 104957 000 ALLERGIES Allergen (clinical drug ingredient) Drug/Non Drug Allergy do cumented on EMR Reaction Allergy Type Onset Date Status helena Veliz([facility] Code:[address]-90) Violent Drug Allergy Active Latex (for allergy use only) Rash Drug Allergy Active clarithromycin Biaxin Dizzy Drug Allergy Active ENCOUNTERS from 1950 to 2020-12-17 Encounter Location Date Provider Diagnosis [place] [address] [facility] [phone] [place] [address] Nov, Carolinayasmeenmarybeth Anitra IMMUNIZATIONS No Information SOCIAL HISTORY Tobacco Use: Social History Observation Description Date Details (start date - stop date) Former Smoker Sex Assigned At : Social History Observation Description Sex Assigned At Unknown Education: Question Answer Notes Level of Education: Finished High School Audit Question Answer Notes Total Score: 2 Interpretation: Alcohol Education Language: Question Answer Notes Languages spoken: Upper Sorbian Drug and Alcohol Question Answer Notes Total [...] Information RESULTS No Results REASON FOR VISIT orders MEDICAL (GENERAL) HISTORY Type Description Date Medical [...] Medical History 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
--- OUTSIDE RECORDS SUMMARY | 2021-01-23 11:07 | CCD ---
Author Author [facility] Organization [facility] Address Unknown Phone Unavailable Care Team Providers Care Electric Motor Assembler Name Role Phone Nohemy Kapoor Unavailable PROBLEMS Type Condition ICD9-CM Code IFY06-XA Code Onset Dates Condition S tatus W/U Status Risk SNOMED Code Notes Problem JACEK (generalized anxiety disorder) F41.1 Activ e confirmed 56355002 Problem Renal cyst N28.1 Active confirmed 648544697 Problem Prostate cancer screening Z12.5 Active confirmed 968734176 Problem Gastroesophageal reflux disease, esophagitis pre sence not specified K21.9 Active confirmed 726838862 Problem Mixed hyperlipidemia E78.2 Active confirmed 754945832 Problem Allergic rhinitis, unspecified seasonality, unspecifie d trigger J30.9 Active confirmed 48403259 Problem Coronary artery disease invo lving coronary bypass graft of [place] heart without angina pectoris I25.810 Active confirmed 763300 002 Problem IFG (impaired fasting glucose) R73.01 Active confir med 307815548 Problem Overweight (BMI 25.0-29.9) E66.3 Active confirmed 733843802 Problem BALAJI (obstructive sleep apnea) G47.33 Active confirm ed 25885672 Problem Essential hypertension I10 Active confirmed 61184692 Problem Basal cell carcinoma of nose C44.311 Active confirm ed 825861867 Problem Colon cancer screening Z12.11 Active confirmed 488519295 Problem Chronic sinusitis, unspecified J32.9 Active c onfirmed 49454556276607 Problem Recurrent bronchiectasis J47.9 Active confirmed 018050355 ALLERGIES Allergen (clinical drug ingredient) Drug/Non Drug Allergy do cumented on EMR Reaction Allergy Type Onset Date Status zolpidem Ambien([facility] Code:[address]-64) Violent Drug Allergy Active Latex (for allergy use only) Rash Drug Allergy Active clarithromycin Biaxin Dizzy Drug Allergy Active ENCOUNTERS from 1950 to 2020-12-02 Encounter Location Date Provider Diagnosis [facility] [address] [facility] [phone] [place] [address] Nov, Nohemy Kapoor IMMUNIZATIONS No Information SOCIAL HISTORY Tobacco Use: Social History Observation Description Date Details (start date - stop date) Former Smoker Sex Assigned At : Social History Observation Description Sex Assigned At Unknown Education: Question Answer Notes Level of Education: Finished High School Audit Question Answer Notes Total Score: 2 Interpretation: Alcohol Education Language: Question Answer Notes Languages spoken: Serbian Drug and Alcohol Question Answer Notes Total [...] Information RESULTS No Results REASON FOR VISIT Cx appt. MEDICAL (GENERAL) HISTORY Type Description Date Medical [...] Medical History 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
--- OUTSIDE RECORDS SUMMARY | 2021-01-23 11:07 | CCD | Continuity of Care Document ---
Author Author Ed GUZMAN MD Organization Unknown Address [address] [place] [address], [address] [place] [address] Phone [phone] Care Team Providers Care Billboard Erector Helper Name Role Phone Nohemy Kapoor AUTM AUTM Unavailable Central Scheduling AUTM [phone] Elly Ayoub M.D. AUTM [phone] Walt Zhang M.D. AUTM [phone] Maycol Lund M.D. AUTM [phone] Problems Active Problems Provider Date Essential hypertension [...] CPT Code Status Date Vaccine Lot # [id number] Given 12/19/2018 Flublock, Quadrivalent Vital Signs Date Vital Result Comment 12/02/2020 8:25am BP Systolic 128 mmHg BP Diastolic 70 mmHg Heart Rate 68 /min O2 % BldC Oximetry 97 % Body Temperature 99.4 F Height 68 inches 5'8" Weight 193.00 lb BMI (Body Mass Index) 29.3 kg/m2 [place] Body Weight 154 lb Weight 87.545 kg BSA (Body Surface Area) 2.01 m2 11/19/2020 10:48am BP Systolic 130 mmHg BP Diastolic 90 mmHg Heart Rate 70 /min O2 % BldC Oximetry 98 % Body Temperature 100.1 F Height 68 inches 5'8" Weight 188.00 lb BMI (Body Mass Index) 28.6 kg/m2 [place] Body Weight 154 lb Weight 85.277 kg BSA (Body Surface Area) 1.99 m2 Results Test Acquired Date Facility Test Result H/L Range Note Laboratory test finding 11/11/2020 [facility] [address] [place], [place] [id number] [phone] Nasal And Sinus Culture FULL REPORT IN L <SEE NOTE> N ormal 1 Laboratory test finding 11/11/2020 [facility] [address] [place] [address] [phone] Pathology Request For Service (SEE NOTE) 2 Laboratory test finding 11/11/2020 [facility] [address] [place] [address] [phone] Pathology Request For Service (SEE NOTE) 3 Laboratory test finding 09/22/2020 [facility] [address] [place] [address] [phone] Nasal And Sinus Culture FULL REPORT IN L <SEE NOTE> N ormal 4 Laboratory test finding 06/09/2020 [facility] [address] [place] [address] [phone] Pathology Request For Service (SEE NOTE) 5 [...] process/lymphoma, the case will be sent to [facility] hematopathology department for consultation and further work [...] report from [facility] hematopathology department [id number], scanned in EMR under pathology module. 11/20/20201835 [...] process/lymphoma, the case will be sent to [facility] hematopathology department for consultation and further work [...] 0901 Procedures Date Code Description Status 11/19/2020 42374 Office/Outpatient Established Mo d MDM 30-39 Min Completed 11/19/2020 98055 Endoscopy Nasal/Sinus Surgical W /BX/Polypectomy/Debridement Completed 11/11/2020 13285 Endoscopy Nasal Diagnostic Compl eted 10/27/2020 04043 Endoscopy Nasal Diagnostic Compl eted 10/10/2020 89496 Diffusing Capacity Completed 10/10/2020 72463 Plethysmography Determination Adry ng Volumes & Per Airway Resist Completed 10/10/2020 88031 Spirometry Completed 10/09/2020 99826 Office/Outpatient Established Lo w MDM 20-29 Min Completed 09/22/2020 52882 Office/Outpatient Established Mo d MDM 30-39 Min Completed 09/22/2020 00516 Endoscopy Nasal Diagnostic Compl eted 09/09/2020 44406 Office/Outpatient Established Mo d MDM 30-39 Min Completed 09/09/2020 24880 Spirometry Completed 06/26/2020 71798 Office/Outpatient Established Lo w MDM 20-29 Min Completed 06/09/2020 78876 Endoscopy Nasal/Sinu s Surgical Remove Tissue From Maxillary Sinus Completed 06/09/2020 32345 Endoscopy Nasal/Sinus Surgical W / Ethmoidectomy Total Completed 06/09/2020 08306 Septoplasty/Submucous Resection Contour Or Replacement W/Graft Completed Medical Devices Description No Information Available Encounters Type Date Location Provider Dx Diagnosis Office Visit 11/19/2020 10:45a [facility] Hamilton Fierro J32.8 Other chronic sinusitis Office Visit 10/09/2020 10:30a [facility] Alec Mcleod MD J01.90 Acute sinusitis, unspecified Office Visit 09/22/2020 1:30p [facility] Alec Mcleod MD J01.90 Acute sinusitis, unspecified Office Visit 09/09/2020 10:30a [facility] Markell Zhang MD G47.33 Obstructive sleep apnea (adult) (pediatr ic) J44.9 Chronic obstructive pulmonar y disease, unspecified Z87.891 Personal history of nicotine dependence Office Visit 07/04/2020 11:15a [facility] Alec Mcleod MD Z48.89 Encounter for other specified surgical aftercare Office Visit 06/26/2020 11:15a [facility] Markell Zhang MD G47.33 Obstructive sleep apnea (adult) (pediatr ic) J47.9 Bronchiectasis, uncomplicate d Office Visit 06/19/2020 9:00a [facility] Alec Mcleod MD Z48.89 Encounter for other specified surgical aftercare J32.4 Chronic pansinusitis Office Visit 06/11/2020 10:30a [facility] Alec Mcleod MD Z48.89 [...] 10:30 am - Bryson Guzman MD at [facility] 12/02/2020 - Bryson Guzman MD* J32.8 Other chronic [...] for Extran odal NK/T-CELL lymphoma..nasal type Created [facility] [address] [place], [place] [id number] [phone]
--- OUTSIDE RECORDS SUMMARY | 2021-01-23 11:07 | CCD | Continuity of Care Document ---
Author Author Ed GUZMAN MD Organization Unknown Address [address] [place] [address], [address] [place] [address] Phone [phone] Care Team Providers Care Earth Science Laboratory Technician Name Role Phone Nohemy Kapoor AUTM [phone] AUTM Unavailable Central Scheduling AUTM [phone] Walt Zhang M.D. AUTM [phone] Maycol Lund M.D. AUTM [phone] Problems Active Problems Provider Date Essential hypertension [...] CPT Code Status Date Vaccine Lot # [id number] Given 12/19/2018 Flublock, Quadrivalent Vital Signs Date Vital Result Comment 12/09/2020 11:18am BP Systolic 118 mmHg BP Diastolic 80 mmHg Heart Rate 67 /min O2 % BldC Oximetry 98 % Body Temperature 99.9 F Height 68 inches 5'8" Weight 192.00 lb BMI (Body Mass Index) 29.2 kg/m2 [place] Body Weight 154 lb Weight 87.091 kg BSA (Body Surface Area) 2.01 m2 12/02/2020 8:25am BP Systolic 128 mmHg BP Diastolic 70 mmHg Heart Rate 68 /min O2 % BldC Oximetry 97 % Body Temperature 99.4 F Height 68 inches 5'8" Weight 193.00 lb BMI (Body Mass Index) 29.3 kg/m2 [place] Body Weight 154 lb Weight 87.545 kg BSA (Body Surface Area) 2.01 m2 Results Test Acquired Date Facility Test Result H/L Range Note Laboratory test finding 12/09/2020 [facility] [address] [place] [address] [phone] Nasal & Sinus Cult Gmstain (SEE NOTE) Normal 1 Laboratory test finding 11/11/2020 [facility] [address] [place] [address] [phone] Nasal And Sinus Culture FULL REPORT IN L <SEE NOTE> N ormal 2 Laboratory test finding 11/11/2020 [facility] [address] [place] [address] [phone] Pathology Request For Service (SEE NOTE) 3 Laboratory test finding 11/11/2020 [facility] [address] [place] [address] [phone] Pathology Request For Service (SEE NOTE) 4 Laboratory test finding 09/22/2020 [facility] [address] [place] [address] [phone] Nasal And Sinus Culture FULL REPORT IN L <SEE NOTE> N ormal 5 1 NO CELLS SEEN NO ORGANISMS SEEN 2 FULL REPORT IN LAB NOTES (eC W and Medent). 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 Please see complete report from [facility] hematopathology department [id number], scanned in EMR under pathology module. 11/20/20201835 [...] process/lymphoma, the case will be sent to [facility] hematopathology department for consultation and further work [...] - 11/12/20201437 Signed Genesis La MD 11/14/2020925 5 FULL REPORT IN LAB NOTES (eC [...] ESBL Procedures Date Code Description Status 12/09/2020 76207 Office/Outpatient Established Lo w MDM 20-29 Min Completed 12/02/2020 13532 Office/Outpatient Established Lo w MDM 20-29 Min Completed 12/02/2020 78745 Endoscopy Nasal/Sinus Surgical W /BX/Polypectomy/Debridement Completed 11/19/2020 62580 Office/Outpatient Established Mo d MDM 30-39 Min Completed 11/19/2020 55035 Endoscopy Nasal/Sinus Surgical W /BX/Polypectomy/Debridement Completed 11/11/2020 00539 Endoscopy Nasal Diagnostic Compl eted 10/27/2020 67425 Endoscopy Nasal Diagnostic Compl eted 10/10/2020 92144 Diffusing Capacity Completed 10/10/2020 50103 Plethysmography Determination Adry ng Volumes & Per Airway Resist Completed 10/10/2020 53854 Spirometry Completed 10/09/2020 12328 Office/Outpatient Established Lo w MDM 20-29 Min Completed 09/22/2020 56685 Office/Outpatient Established Mo d MDM 30-39 Min Completed 09/22/2020 19361 Endoscopy Nasal Diagnostic Compl eted 09/09/2020 62554 Office/Outpatient Established Mo d MDM 30-39 Min Completed 09/09/2020 29924 Spirometry Completed 06/26/2020 70517 Office/Outpatient Established Lo w MDM 20-29 Min Completed Medical Devices Description No Information Available Encounters Type Date Location Provider Dx Diagnosis Office Visit 12/02/2020 8:30a [facility] Hamilton Fierro J32.8 Other chronic sinusitis Office Visit 11/19/2020 10:45a [facility] Hamilton Fierro J32.8 Other chronic sinusitis Office Visit 10/09/2020 10:30a [facility] Alec Mcleod MD J01.90 Acute sinusitis, unspecified Office Visit 09/22/2020 1:30p [facility] Alec Mcleod MD J01.90 Acute sinusitis, unspecified Office Visit 09/09/2020 10:30a [facility] Markell Zhang MD G47.33 Obstructive sleep apnea (adult) (pediatr ic) J44.9 Chronic obstructive pulmonar y disease, unspecified Z87.891 Personal history of nicotine dependence Office Visit 07/04/2020 11:15a [facility] Alce Mcleod MD Z48.89 Encounter for other specified surgical aftercare Office Visit 06/26/2020 11:15a [facility] Markell Zhang MD G47.33 Obstructive sleep apnea (adult) (pediatr ic) J47.9 Bronchiectasis, uncomplicate d Office Visit 06/19/2020 9:00a [facility] Alec Mcleod MD Z48.89 Encounter for other specified surgical aftercare J32.4 Chronic pansinusitis Office Visit 06/11/2020 10:30a [facility] Alec Mcleod MD [...] 11:15 am - Bryson Guzman MD at [facility] Functional Status Description No Information Available Mental Status Description No Information Available Referrals Refer to Reason for Referral Status Appt Date Maycol Lund M.D. Needs urgent eval for Extran odal NK/T-CELL lymphoma..nasal type [facility] [address] [place], [place] [address] [phone]
--- OUTSIDE RECORDS SUMMARY | 2021-01-23 11:09 | CCD ---
Author Author [facility] Organization [facility] Address Unknown Phone Unavailable Care Team Providers Care Measurement Superintendent Name Role Phone Daniel La MD Unavailable Unavailable Daniel La MD Unavailable Unavailable Daniel La MD Unavailable Unavailable Daniel La MD Unavailable Unavailable Daniel La MD Unavailable Unavailable Daniel La MD Unavailable Unavailable Abriss B Alec GAY Unavailable Unavailable Abriss B Alec GAY Unavailable Unavailable Abriss B Alec GAY Unavailable Unavailable Abriss B Alec GAY Unavailable Unavailable Abriss B Alec GAY Unavailable Unavailable Abriss B Alec GAY Unavailable Unavailable Abriss B Alec GAY Unavailable Unavailable Abriss B Alec GAY Unavailable Unavailable Abriss B Alec GAY Unavailable Unavailable Abriss B Alec GAY Unavailable Unavailable Abriss B Alec GAY Unavailable Unavailable Abriss B Alec GAY Unavailable Unavailable Abriss B Alec GAY Unavailable Unavailable Abriss, B Alec GAY Unavailable Unavailable Abriss B Alec GAY Unavailable Unavailable Abriss B Alec GAY Unavailable Unavailable Abriss B Alec GAY Unavailable Unavailable Abriss, B Alec GAY Unavailable Unavailable Abriss, B Alec GAY Unavailable Unavailable LETTIERE, A ROMA PA Unavailable Unavailable LETTIERE, A ROMA PA Unavailable Unavailable LETTIERE, A ROMA PA Unavailable Unavailable LETTIERE, A ROMA PA Unavailable Unavailable LETTIERE, A ROMA PA Unavailable Unavailable LETTIERE, A ROMA PA Unavailable Unavailable LETTIERE, A ROMA PA Unavailable Unavailable LETTIERE, A ROMA PA Unavailable Unavailable LETTIERE, A ROMA PA Unavailable Unavailable LETTIERE, A ROMA PA Unavailable Unavailable LETTIERE, A ROMA PA Unavailable Unavailable LETTIERE, A ROMA PA Unavailable Unavailable LETTIERE, A ROMA PA Unavailable Unavailable LETTIERE, A ROMA PA Unavailable Unavailable LETTIERE, A ROMA PA Unavailable Unavailable LETTIERE, A ROMA PA Unavailable Unavailable LETTIERE, A ROMA PA Unavailable Unavailable LETTIERE, A ROMA PA Unavailable Unavailable LETTIERE, A ROMA PA Unavailable Unavailable LETTIERE, A ROMA PA Unavailable Unavailable LETTIERE, A ROMA PA Unavailable Unavailable LETTIERE, A ROMA PA Unavailable Unavailable LETTIERE, A ROMA PA Unavailable Unavailable LETTIERE, A ROMA PA Unavailable Unavailable LETTIERE, A ROMA PA Unavailable Unavailable LETTIERE, A ROMA PA Unavailable Unavailable LETTIERE, A ROAM PA Unavailable Unavailable LETTIERE, A ROMA PA Unavailable Unavailable LETTIERE, A ROMA PA Unavailable Unavailable LETTIERE, A ROMA PA Unavailable Unavailable LETTIERE, A ROMA PA Unavailable Unavailable Paramjit Blair MD Unavailable Unavailable Paramjit Blair MD Unavailable Unavailable Paramjit Blair MD Unavailable Unavailable Paramjit Blair MD Unavailable Unavailable Paramjit Blair MD Unavailable Unavailable Paramjit Blair MD Unavailable Unavailable Paramjit Blair MD Unavailable Unavailable Paramjit Blair MD Unavailable Unavailable Paramjit Blair MD Unavailable Unavailable Paramjit Blair MD Unavailable Unavailable Paramjit Blair MD Unavailable Unavailable Paramjit Blair MD Unavailable Unavailable Paramjit Blair MD Unavailable Unavailable Paramjit Blair MD Unavailable Unavailable Paramjit Blair MD Unavailable Unavailable Paramjit Blair MD Unavailable Unavailable Paramjit Blair MD Unavailable Unavailable Paramjit Blair MD Unavailable Unavailable Madhira, Paramjit Rader MD Unavailable Unavailable Madhira, Paramjit Rader MD Unavailable Unavailable Madhi, Paramjit Rader MD Unavailable Unavailable Madhira, Paramjit Rader MD Unavailable Unavailable Madhi, Paramjit Rader MD Unavailable Unavailable Madhira, Paramjit Rader MD Unavailable Unavailable Madhira, Paramjit Rader MD Unavailable Unavailable Fons, M Osiris CENTRAL SUPPLY CLERK Unavailable Unavailable Fons, M Osiris CENTRAL SUPPLY CLERK Unavailable Unavailable Fons, M Osiris CENTRAL SUPPLY CLERK Unavailable Unavailable Fons, M Osiris CENTRAL SUPPLY CLERK Unavailable Unavailable Fons, M Osiris CENTRAL SUPPLY CLERK Unavailable Unavailable Fons, M Osiris CENTRAL SUPPLY CLERK Unavailable Unavailable Fons, M Osiris CENTRAL SUPPLY CLERK Unavailable Unavailable Fons, M Osiris CENTRAL SUPPLY CLERK Unavailable Unavailable Fons, M Osiris CENTRAL SUPPLY CLERK Unavailable Unavailable Fons, M Osiris CENTRAL SUPPLY CLERK Unavailable Unavailable Fons, M Osiris CENTRAL SUPPLY CLERK Unavailable Unavailable Fons, M Osiris CENTRAL SUPPLY CLERK Unavailable Unavailable Fons, M Osiris CENTRAL SUPPLY CLERK Unavailable Unavailable Fons, M Osiris CENTRAL SUPPLY CLERK Unavailable Unavailable Fons, M Osiris CENTRAL SUPPLY CLERK Unavailable Unavailable Fons, M Osiris CENTRAL SUPPLY CLERK Unavailable Unavailable Fons, M Osiris CENTRAL SUPPLY CLERK Unavailable Unavailable Fons, M Osiris CENTRAL SUPPLY CLERK Unavailable Unavailable Fons, M Osiris CENTRAL SUPPLY CLERK Unavailable Unavailable Fons, M Osiris CENTRAL SUPPLY CLERK Unavailable Unavailable Fons, M Osiris CENTRAL SUPPLY CLERK Unavailable Unavailable Fons, M Osiris CENTRAL SUPPLY CLERK Unavailable Unavailable Fons, M Osiris CENTRAL SUPPLY CLERK Unavailable Unavailable Fons, M Osiris CENTRAL SUPPLY CLERK Unavailable Unavailable Fons, M Osiris CENTRAL SUPPLY CLERK Unavailable Unavailable Fons, M Osiris CENTRAL SUPPLY CLERK Unavailable Unavailable Fons, M Osiris CENTRAL SUPPLY CLERK Unavailable Unavailable Fons, M Osiris CENTRAL SUPPLY CLERK Unavailable Unavailable Fons, M Osiris CENTRAL SUPPLY CLERK Unavailable Unavailable Fons, M Osiris CENTRAL SUPPLY CLERK Unavailable Unavailable Fons, M Osiris CENTRAL SUPPLY CLERK Unavailable Unavailable Fons, M Osiris CENTRAL SUPPLY CLERK Unavailable Unavailable Fons, M Osiris CENTRAL SUPPLY CLERK Unavailable Unavailable Fons, M Osiris CENTRAL SUPPLY CLERK Unavailable Unavailable Fons, M Osiris CENTRAL SUPPLY CLERK Unavailable Unavailable Fons, M Osiris CENTRAL SUPPLY CLERK Unavailable Unavailable Fons, M Osiris CENTRAL SUPPLY CLERK Unavailable Unavailable Fons, M Osiris CENTRAL SUPPLY CLERK Unavailable Unavailable Fons, M Osiris CENTRAL SUPPLY CLERK Unavailable Unavailable Fons, M Osiris CENTRAL SUPPLY CLERK Unavailable Unavailable Fons, M Osiris CENTRAL SUPPLY CLERK Unavailable Unavailable Fons, M Osiris CENTRAL SUPPLY CLERK Unavailable Unavailable Fons, M Osiris CENTRAL SUPPLY CLERK Unavailable Unavailable Fons, M Osiris CENTRAL SUPPLY CLERK Unavailable Unavailable Fons, M Osiris CENTRAL SUPPLY CLERK Unavailable Unavailable Fons, M Osiris CENTRAL SUPPLY CLERK Unavailable Unavailable Fons, M Osiris CENTRAL SUPPLY CLERK Unavailable Unavailable Fons, M Osiris CENTRAL SUPPLY CLERK Unavailable Unavailable Fons, M Osiris CENTRAL SUPPLY CLERK Unavailable Unavailable Fons, M Osiris CENTRAL SUPPLY CLERK Unavailable Unavailable Fons, M Osiris CENTRAL SUPPLY CLERK Unavailable Unavailable Fons, M Osiris CENTRAL SUPPLY CLERK Unavailable Unavailable Fons, M Osiris CENTRAL SUPPLY CLERK Unavailable Unavailable Vinnie Zhang MD Unavailable Unavailable Vinnie Zhang MD Unavailable Unavailable Vinnie Zhang MD Unavailable Unavailable Vinnie Zhang MD Unavailable Unavailable Vinnie Zhang MD Unavailable Unavailable Vinnie Zhang MD Unavailable Unavailable Vinnie Zhang MD Unavailable Unavailable Vinnie Zhang MD Unavailable Unavailable Vinnie Zhang MD Unavailable Unavailable Vinnie Zhang MD Unavailable Unavailable Vinnie Zhang MD Unavailable Unavailable Vinnie Zhang MD Unavailable Unavailable Vinnie Zhang MD Unavailable Unavailable Vinnie Zhang MD Unavailable Unavailable Vinnie Zhang MD Unavailable Unavailable Vinnie Zhang MD Unavailable Unavailable Vinnie Zhang MD Unavailable Unavailable Vinnie Zhang MD Unavailable Unavailable Vinnie Zhang MD Unavailable Unavailable Vinnie Zhang MD Unavailable Unavailable Vinnie Zhang MD Unavailable Unavailable Vinnie Zhang MD Unavailable Unavailable Vinnie Zhang MD Unavailable Unavailable Vinnie Zhang MD Unavailable Unavailable Vinnie Zhang MD Unavailable Unavailable Vinnie Zhang MD Unavailable Unavailable Vinnie Zhang MD Unavailable Unavailable Vinnie Zhang MD Unavailable Unavailable Vinnie Zhang MD Unavailable Unavailable Vinnie Zhang MD Unavailable Unavailable Vinnie Zhang MD Unavailable Unavailable Vinnie Zhang MD Unavailable Unavailable Vinnie Zhang MD Unavailable Unavailable Vinnie Zhang MD Unavailable Unavailable Vinnie Zhang MD Unavailable Unavailable Vinnie Zhang MD Unavailable Unavailable Vinnie Zhang MD Unavailable Unavailable Vinnie Zhang MD Unavailable Unavailable Vinnie Zhang MD Unavailable Unavailable Vinnie Zhang MD Unavailable Unavailable Vinnie Zhang MD Unavailable Unavailable Vinnie Zhang MD Unavailable Unavailable Vinnie Zhang MD Unavailable Unavailable Vinnie Zhang MD Unavailable Unavailable Vinnie Zhang MD Unavailable Unavailable Vinnie Zhang MD Unavailable Unavailable Vinnie Zhang MD Unavailable Unavailable Vinnie Zhang MD Unavailable Unavailable Vinnie Zhang MD Unavailable Unavailable Vinnie Zhang MD Unavailable Unavailable Vinnie Zhang MD Unavailable Unavailable Vinnie Zhang MD Unavailable Unavailable Vinnie Zhang MD Unavailable Unavailable Vinnie Zhang MD Unavailable Unavailable Addis Nicholson MD Unavailable Unavailable Addis Nicholson MD Unavailable Unavailable Addis Nicholson MD Unavailable Unavailable Addis Nicholson MD Unavailable Unavailable Addis Nicholson MD Unavailable Unavailable Addis Nicholson MD Unavailable Unavailable Bharat, Addis MD Unavailable Unavailable Bharat, Addis MD Unavailable Unavailable Bharat, Addis MD Unavailable Unavailable Bharat, Addis MD Unavailable Unavailable Bharat, Addis MD Unavailable Unavailable Bharat, Addis MD Unavailable Unavailable Bharat, Addis MD Unavailable Unavailable Bharat, Addis MD Unavailable Unavailable Bharat, Addis MD Unavailable Unavailable Bharat, Addis MD Unavailable Unavailable Bharat, Addis MD Unavailable Unavailable Bharat, Addis MD Unavailable Unavailable Bharat, Addis MD Unavailable Unavailable Bharat, Addis MD Unavailable Unavailable Bharat, Addis MD Unavailable Unavailable Bharat, Addis MD Unavailable Unavailable Bharat, Addis MD Unavailable Unavailable Bharat, Addis MD Unavailable Unavailable Bharat, Addis MD Unavailable Unavailable Bharat, Addis MD Unavailable Unavailable Bharat, Addis MD Unavailable Unavailable Bharat, Addis MD Unavailable Unavailable Bharat, Addis MD Unavailable Unavailable Bharat, Addis MD Unavailable Unavailable Bharat, Addis MD Unavailable Unavailable Bharat, Addis MD Unavailable Unavailable Bharat, Addis MD Unavailable Unavailable Bharat, Addis MD Unavailable Unavailable Dipika II, Hal PA Unavailable Unavailable Dipika II, Hal PA Unavailable Unavailable Dipika II, Hal PA Unavailable Unavailable Dipika II, Hal PA Unavailable Unavailable Dipika II, Hal PA Unavailable Unavailable Dipika II, Hal PA Unavailable Unavailable Dipika II, Hal PA Unavailable Unavailable Dipika II, Hal PA Unavailable Unavailable Dipika II, Hal PA Unavailable Unavailable Dipika II, Hal PA Unavailable Unavailable Dipika II, Hal PA Unavailable Unavailable Dipika II, Hal PA Unavailable Unavailable Dipika II, Hal PA Unavailable Unavailable Dipika II, Hal PA Unavailable Unavailable Dipika II, Hal PA Unavailable Unavailable Dipika II, Hal PA Unavailable Unavailable Dipika II, Hal PA Unavailable Unavailable Dipika II, Hal PA Unavailable Unavailable Dipika II, Hal PA Unavailable Unavailable Shadi Guzman PH.D., M.D. Unavailable Unavailable Shadi Guzman PH.D., M.D. Unavailable Unavailable Shadi Guzman PH.D., M.D. Unavailable Unavailable Shadi Guzman PH.D., M.D. Unavailable Unavailable Shadi Guzman PH.D., M.D. Unavailable Unavailable Shadi Guzman PH.D., M.D. Unavailable Unavailable Thomas, C Bryson PH.D., M.D. Unavailable Unavailable Thomas, C Bryson PH.D., M.D. Unavailable Unavailable Thomas, C Bryson PH.D., M.D. Unavailable Unavailable Thomas, C Bryson PH.D., M.D. Unavailable Unavailable Thomas, C Bryson PH.D., M.D. Unavailable Unavailable Thomas, C Bryson PH.D., M.D. Unavailable Unavailable Thomas, C Bryson PH.D., M.D. Unavailable Unavailable Thomas, C Bryson PH.D., M.D. Unavailable Unavailable Thomas, C Bryson PH.D., M.D. Unavailable Unavailable Thomas, C Bryson PH.D., M.D. Unavailable Unavailable Thomas, C Bryson PH.D., M.D. Unavailable Unavailable Thomas, C Bryson PH.D., M.D. Unavailable Unavailable Thomas, C Bryson PH.D., M.D. Unavailable Unavailable Thomas, C Bryson PH.D., M.D. Unavailable Unavailable Thomas, C Bryson PH.D., M.D. Unavailable Unavailable Thomas, C Bryson PH.D., M.D. Unavailable Unavailable Thomas, C Bryson PH.D., M.D. Unavailable Unavailable Thomas, C Bryson PH.D., M.D. Unavailable Unavailable Thomas, C Bryson PH.D., M.D. Unavailable Unavailable Thomas, C Bryson PH.D., M.D. Unavailable Unavailable Thomas, C Bryson PH.D., M.D. Unavailable Unavailable Thomas, C Bryson PH.D., M.D. Unavailable Unavailable Thomas, C Bryson PH.D., M.D. Unavailable Unavailable Thomas, C Bryson PH.D., M.D. Unavailable Unavailable Thomas, C Bryson PH.D., M.D. Unavailable Unavailable Thomas, C Bryson PH.D., M.D. Unavailable Unavailable Thomas, C Bryson PH.D., M.D. Unavailable Unavailable Thomas, C Bryson PH.D., M.D. Unavailable Unavailable Thomas, C Bryson PH.D., M.D. Unavailable Unavailable Thomas, C Bryson PH.D., M.D. Unavailable Unavailable Thomas, C Bryson PH.D., M.D. Unavailable Unavailable Thomas, C Bryson PH.D., M.D. Unavailable Unavailable Thomas, C Bryson PH.D., M.D. Unavailable Unavailable Thomas, C Bryson PH.D., M.D. Unavailable Unavailable Thomas, C Bryson PH.D., M.D. Unavailable Unavailable Thomas, C Bryson PH.D., M.D. Unavailable Unavailable Thomas, C Bryson PH.D., M.D. Unavailable Unavailable Thomas, C Bryson PH.D., M.D. Unavailable Unavailable Thomas, C Bryson PH.D., M.D. Unavailable Unavailable Thomas, C Bryson PH.D., M.D. Unavailable Unavailable Thomas, C Bryson PH.D., M.D. Unavailable Unavailable Thomas, C Bryson PH.D., M.D. Unavailable Unavailable Thomas, C Bryson PH.D., M.D. Unavailable Unavailable Thomas, C Bryson PH.D., M.D. Unavailable Unavailable Thomas, C Bryson PH.D., M.D. Unavailable Unavailable Thomas, C Bryson PH.D., M.D. Unavailable Unavailable Thomas, C Bryson PH.D., M.D. Unavailable Unavailable Thomas, C Bryson PH.D., M.D. Unavailable Unavailable Thomas, C Bryson PH.D., M.D. Unavailable Unavailable Thomas, C Bryson PH.D., M.D. Unavailable Unavailable Thomas, C Bryson PH.D., M.D. Unavailable Unavailable Thomas, C Bryson PH.D., M.D. Unavailable Unavailable Thomas, C Bryson PH.D., M.D. Unavailable Unavailable Thomas, C Bryson PH.D., M.D. Unavailable Unavailable Thomas, C Bryson PH.D., M.D. Unavailable Unavailable Thomas, C Bryson PH.D., M.D. Unavailable Unavailable Thomas, C Bryson PH.D., M.D. Unavailable Unavailable Thomas, C Bryson PH.D., M.D. Unavailable Unavailable Thomas, C Bryson PH.D., M.D. Unavailable Unavailable Thomas, C Bryson PH.D., M.D. Unavailable Unavailable Thomas, C Bryson PH.D., M.D. Unavailable Unavailable Thomas, C Bryson PH.D., M.D. Unavailable Unavailable Thomas, C Bryson PH.D., M.D. Unavailable Unavailable Thomas, C Bryson PH.D., M.D. Unavailable Unavailable Thomas, C Bryson PH.D., M.D. Unavailable Unavailable Thomas, C Bryson PH.D., M.D. Unavailable Unavailable Thomas, C Bryson PH.D., M.D. Unavailable Unavailable Shadi Guzman PH.D., M.D. Unavailable Unavailable Shadi Guzman PH.D., M.D. Unavailable Unavailable Shadi Guzman PH.D., M.D. Unavailable Unavailable Shadi Guzman PH.D., M.D. Unavailable Unavailable Shadi Guzman PH.D., M.D. Unavailable Unavailable Shadi Guzman PH.D., M.D. Unavailable Unavailable Shadi Guzman PH.D., M.D. Unavailable Unavailable Shadi Guzman PH.D., M.D. Unavailable Unavailable Shadi Guzman PH.D., M.D. Unavailable Unavailable Re-disclosure Warning The records that you are about to access may contain information from federally-assisted alcohol or drug abuse programs. If such information is present, then the following federally mandated warning applies: This information has been disclosed to you from records protected by federal confidentiality rules (42 CFR part 2). The federal rules prohibit you from making any further disclosure of this information unless further disclosure is expressly permitted by the written consent of the person to whom it pertains or as otherwise permitted by 42 CFR part 2. A general authorization for the release of medical or other information is NOT sufficient for this purpose. The Federal rules restrict any use of the information to criminally investigate or prosecute any alcohol or drug abuse patient.The records that you are about to access may contain highly sensitive health information, the redisclosure of which is protected by Article 27-F of the [facility] Public Health law. If you continue you may have access to information: Regarding HIV / AIDS; Provided by facilities licensed or operated by the [facility] Office of Mental Health; or Provided by the [facility] Office for People With Developmental Disabilities. If such information is present, then the following [facility] mandated warning applies: This information has been disclosed to you from confidential records which are protected by state law. State law prohibits you from making any further disclosure of this information without the specific written consent of the person to whom it pertains, or as otherwise permitted by law. Any unauthorized further disclosure in violation of state law may result in a fine or residential sentence or both. A general authorization for the release of medical or other information is NOT sufficient authorization for further disc losure. Allergies and Adverse Reactions Type Description Substance Reaction Status Data Source(s ) Propensity to adverse reactions LATEX Latex Rash [facility] Propensity to adverse [facility] Family History Family Member Name Family Member Gender Family Member Status Date o f Status Description Data Source(s) Unknown Unknown Problem [facility] ([facility]) Unknown Male Problem [facility] ([facility]) Unknown Female Unknown Male Encounters Encounter Providers Location Date Indications Data Source(s ) Outpatient Attender: Addis Nicholson MDReferrer: Isai pickett MD 06/16/2021 12:00:00 AM [facility] Outpatient Attender: Isai Blair MD 01/22/2021 12:00: 00 AM [facility] Outpatient Attender: Isai Blair MD 01/15/2021 12:00:00 AM EDT Anaplastic large cell lymphoma, 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, extranodal and solid organ sites [facility] Anaplastic large cell lymphoma, 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, extranodal and solid organ sites Outpatient Attender: Hal Mariscal/Kimberly/Marty/Rein dl 01/08/2021 10:00:00 AM EDT [facility] ([facility]) Outpatient Attender: Isai Leal-ONCCACTR 12:00:00 AM [facility] Outpatient Attender: Isai Blair MD 01/06/2021 12:00: 00 AM [facility] Outpatient Attender: Isai Leal-ONCCACTR 12:00:00 AM EDT - [facility] Isai Leal-ONCCACTR 12:00:00 AM EDT - 12/26/2020 08:07:20 AM EDT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, nasal type [facility]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, nasal typ e Outpatient [facility] [place] [address] 12/23/2020 12:00:00 AM EDT eCW1 ([facility]) Outpatient Attender: Isai Leal-ONCCACTR 12:00:00 AM EDT - 12/16/2020 03[facility]39[facility] [address] [facility] [place] [address] 12/12/2020 12:00:00 AM EDT eCW1 ([facility]) Outpatient Attender: Isai Blair MDReferrer: Isai Blair MD 12/11/2020 12:00:00 AM [facility] Outpatient Attender: Isai Blair MD 12/11/2020 12:00: 00 AM [facility] Outpatient Attender: Bryson Guzman PH.DAustin, MJorge Mariscal/Kimberly/Thanh camacho/Reinalexandra 12/09/2020 11:30:00 AM EDT [facility] ([facility] [place] [address] [facility] [address] 12/08/2020 12:00:00 AM EDT eCW1 ([facility]) Outpatient Attender: Isai Blair MDAdmitter: Junaid Leal-ONCCACTR 12/04/2020 12:00:00 AM EDT - 12/04/2020 11:47:27 AM [facility] Unknown [address] [facility] [place] [address] 12/03/2020 12:00:00 AM EDT eCW1 ([facility]) Outpatient Attender: Bryson Guzman PH.Allan, MJorge Mariscal/Kimberly/A ngel/Reindl 12/02/2020 08:30:00 AM EDT [facility] ([facility] [place]patient [address] [facility] [place] [address] 12/02/2020 12:00:00 AM EDT eCW1 ([facility]) Unknown [address] [facility] [place] [address] 12/01/2020 12:00:00 AM EDT eCW1 ([facility]) [place] [address] [facility] [place] [address] 11/30/2020 12:00:00 AM EDT eCW1 ([facility]) Outpatient Attender: Bryson Guzman PH.D., M.D. Loida/Kimberly/Thanh camacho/Reinalexandra 11/19/2020 10:45:00 AM EDT [facility] ([facility], ) Outpatient Admitter: Daniel La MDReferrer: Daniel La MD 11/11/2020 12:00:00 AM EDT Unspecified B-cell lymphoma, unspecified site [facility] Unspecified B-cell lymphoma, unspecified site Outpatient Attender: Alec Mariscal/Kimberly/Marty/Re indl 10/09/2020 10:30:00 AM EDT [facility] ([facility] ) Outpatient Attender: Alec Mariscal/Kimberly/Marty/Re indl 09/22/2020 01:30:00 PM EDT [facility] ([facility], ) Outpatient Attender: Osiris Barclay FNPReferrer: Osiris HERRERASJMARY 09/12/2020 02:15:18 PM EDT - 09/12/2020 03:16:06 PM EDT [facility] Outpatient Attender: Osiris Barclay FNPReferrer: Osiris HERRERASJMARY 09/12/2020 12:00:00 AM EDT - 09/12/2020 03:29:17 PM EDT [facility] Outpatient Attender: Walt Mariscal/Kimberly/Marty/R eindl 09/09/2020 10:30:00 AM EDT [facility] [place] [address] [facility] [place] [address] 09/05/2020 12:00:00 AM EDT eCW1 ([facility]) Outpatient Attender: Osiris IRWIN.EUGENE 10:22:45 AM EDT - 07/18/2020 11:47:40 AM EDT [facility] Office Visit Attender: Alec Mariscal/Verdon/Marty/Re indl 07/04/2020 11:15:00 AM EDT [facility] ([facility] Outpatient Attender: Walt Mariscal/Verdon/Marty/R eindl 06/26/2020 11:15:00 AM EDT [facility] ([facility]) Office Visit Attender: Alec Mariscal/Verdon/Marty/Re indl 06/19/2020 09:00:00 AM EDT [facility] ([facility] Office Visit Attender: Alec Mariscal/Verdon/Marty/Re indl 06/11/2020 10:30:00 AM EDT [facility] ([facility] [place] [address] [facility] [place] [address] 06/05/2020 12:00:00 AM EDT eCW1 ([facility]) Office Visit, Est Pt., Level 5 PC [address] [place] [address] 06/05/2020 12:00:00 AM EDT eCW1 ([facility] Outpatient Attender: Alec Mariscal/Kimberly/Marty/Re indl 05/20/2020 09:45:00 AM EST [facility] ([facility]) Outpatient Attender: Alec Mariscal/Verdon/Marty/Re indl 05/07/2020 09:15:00 AM EST [facility] ([facility]) Outpatient Attender: Alec Mariscal/Verdon/Marty/Re indl 04/01/2020 08:30:00 AM EST [facility] ([facility] [place] [address] [facility] [place] [address] 04/01/2020 12:00:00 AM EST eCW1 ([facility]) Unknown [address] [facility] [place] [address] 03/11/2020 12:00:00 AM EST [facility] Unknown [address] [facility] [place] [address] 03/10/2020 12:00:00 AM EST [facility] Outpatient Attender: ROMA ovalle 03/04/2020 04:00:00 PM EST [facility] ([facility] Outpatient [address] [facility] [place] [address] 02/27/2020 12:00:00 AM EST eCW1 ([facility]) Outpatient Attender: Walt Mariscal/Kimberly/Kenny cristina 02/18/2020 08:45:00 AM EST [facility] ([facility] Unknown [address] [facility] [facility] [address] 02/18/2020 12:00:00 AM EST eCW1 ([facility]) Unknown [address] [facility] [address] 02/13/2020 12:00:00 AM EST eCW1 ([facility]) [place] [address] [facility] [place] [address] 02/12/2020 12:00:00 AM EST eCW1 ([facility]) Unknown [address] [facility] [place] [address] 01/28/2020 12:00:00 AM EST eCW1 ([facility]) Unknown [address] [facility] [place] [address] 01/28/2020 12:00:00 AM EST eCW1 ([facility]) Outpatient Attender: Osiris MCMANUS.EUGENE-SJMARY 0 12:00:00 AM EST - 01/15/2020 09:59:21 AM EST [facility], Est Pt., Level 3 PC [address] [place] [address] 01/01/2020 12:00:00 AM EDT eCW1 ([facility] hospital) Unknown [address] [facility] [address] 12/31/2019 12:00:00 AM EDT eCW1 ([facility]) Outpatient Attender: Walt Mariscal/Kimberly/Kenny cristina 12/27/2019 11:15:00 AM EDT MEDENT ([facility]) Immunizations Vaccine Date Status Description Data Source(s) influenza, recombinant, quadrIvalent,injectable, prese rvative free 12/23/2020 12:16:00 PM EDT completed eCW1 ([facility]) influenza, recombinant, quadrIvalent,injectable, prese rvative free 12/23/2020 12:16:00 PM EDT completed eCW1 ([facility]) COVID-19 VACCINE Julio 07/25/2020 12:00:00 AM EDT completed [facility] Vaccine Series Complete: YESThis Data wa s Submitted to [facility] Via [employer]. Medications Medication Brand Name Start Date Product Form Dose Route Admi nistrative Instructions Pharmacy Instructions Status Indications Reaction Description Data Source(s) 200 mg 01/09/2021 12:00:00 AM EDT tablet 60 TAKE ONE TABLET BY MOUTH TWICE A DAY FOR 2 DAYS THE TWO TIMES A DAY FOR 30 DAYS TAKE ONE TABLET BY MOUTH TWICE A DAY FOR 2 DAYS THE TWO TIMES A DAY FOR 30 DAYS SOLD: 01/14/2021 [facility] 5 mg 01/09/2021 12:00:00 AM EDT tablet 30 TAKE ONE TABLET BY MOUTH EVERY DAY TAKE ONE TABLET BY MOUTH EVERY DAY SOLD: 01/09/2021 [facility] 5 mg 12/30/2020 12:00:00 AM EDT tablet 150 TAKE THREE TABLETS BY MOUTH EVERY MORNING AND TAKE TWO TABLETS BY MOUTH EVERY EVENING TAKE THREE TABLETS BY MOUTH EVERY MORNING AND TAKE TWO TABLETS BY MOUTH EVERY EVENING SOLD: 12/30/2020 [facility] 1 gram 12/26/2020 12:00:00 AM EDT tablet 90 TAKE ONE TABLET BY MOUTH THREE TIMES A DAY TAKE ONE TABLET BY MOUTH THREE TIMES A DAY SOLD: 12/30/2020 [facility] 8 mg 12/25/2020 12:00:00 AM EDT tablet 9 TAKE ONE TABLET BY MOUTH EVERY 8 HOURS NEEDED FOR NAUSEA AND VOMITING FOR UP TO 7 DAYS TAKE ONE TABLET BY MOUTH EVERY 8 HOURS NEEDED FOR NAUSEA AND VOMITING FOR UP TO 7 DAYS SOLD: 01/09/2021 [facility] 8 mg 12/25/2020 12:00:00 AM EDT tablet 9 TAKE ONE TABLET BY MOUTH EVERY 8 HOURS NEEDED FOR NAUSEA AND VOMITING FOR UP TO 7 DAYS TAKE ONE TABLET BY MOUTH EVERY 8 HOURS NEEDED FOR NAUSEA AND VOMITING FOR UP TO 7 DAYS SOLD: 12/25/2020 [facility] 10 mg 12/25/2020 12:00:00 AM EDT tablet 30 TAKE ONE TABLET BY MOUTH EVERY 6 HOURS NEEDED TAKE ONE TABLET BY MOUTH EVERY 6 HOURS NEEDED SOLD: 12/25/2020 [facility] Alprazolam 0.25 MG Oral Tablet ALPRAZOLAM 12/18/2020 12:00:00 AM EDT tablet 14 TAKE ONE TABLET BY MOUTH TWICE A DAY NEEDED FOR ANXIETY FOR UP TO 7 DAYS MAXIMUM DAILY DOSE = 2 TAKE ONE TABLET BY MOUTH TWICE A DAY NEEDED FOR ANXIETY FOR UP TO 7 DAYS MAXIMUM DAILY DOSE = 2 SOLD: 12/18/2020 [facility] 200 mg 12/09/2020 12:00:00 AM EDT tablet 60 TAKE ONE TABLET BY MOUTH THREE TIMES A DAY FOR 2 DAYS THEN TWO TIMES A DAY TAKE ONE TABLET BY MOUTH THREE TIMES A DAY FOR 2 DAYS THEN TWO TIMES A DAY SOLD: 12/10/2020 [facility] voriconazole 200 MG Oral Tablet Voriconazole 200 MG Voricona zole 200 MG 12/02/2020 12:00:00 AM EDT active Voriconazole 200 MG eCW1 ([facility]) voriconazole 200 MG Oral Tablet Voriconazole 200 MG Voricona zole 200 MG 12/02/2020 12:00:00 AM EDT active Voriconazole 200 MG eCW1 ([facility]) voriconazole 200 MG Oral Tablet Voriconazole 200 MG Voricona zole 200 MG 12/02/2020 12:00:00 AM EDT active Voriconazole 200 MG eCW1 ([facility]) 10 mg 10/10/2020 12:00:00 AM EDT tablet 40 TAKE 4 TABLETS BY MOUTH DAILY FOR 4 DAYS, THEN TAKE 3 DAILY FOR 4 DAYS, THEN TAKE 2 DAILY FOR 4 DAYS, THEN TAKE 1 DAILY FOR 4 DAYS TAKE 4 TABLETS BY MOUTH DAILY FOR 4 DAYS , THEN TAKE 3 DAILY FOR 4 DAYS, THEN TAKE 2 DAILY FOR 4 DAYS, THEN TAKE 1 DAILY FOR 4 DAYS SOLD: 10/11/2020 [facility] Prednisone 10 MG Oral Tablet Prednisone 10/10/2020 12:00:00 AM EDT ORAL completed MEDENT ([facility], ) 250 mg 10/09/2020 12:00:00 AM EDT tablet 14 TAKE ONE TABLET BY MOUTH EVERY DAY FOR 14D AYS TAKE ONE TABLET BY MOUTH EVERY DAY FOR 14D AYS SOLD: [facility] Levofloxacin 250 MG Oral Tablet Levofloxacin 10/09/2020 12:00:00 AM E DT ORAL completed MEDENT ([facility], ) 250 mg 10/09/2020 12:00:00 AM EDT tablet 14 TAKE ONE TABLET BY MOUTH EVERY DAY FOR 14D AYS TAKE ONE TABLET BY MOUTH EVERY DAY FOR 14D AYS SOLD: 021 [facility] 2 % 09/22/2020 12:00:00 AM EDT cream 15 USE 1 TEASPOONFUL MIXED WITH SALT PACKET DAILY DIRECTED USE 1 TEASPOONFUL MIXED WITH SALT PACKET DAILY DIRECTED SOLD: 10/10/2020 [facility] 500 mg 09/22/2020 12:00:00 AM EDT tablet 30 TAKE ONE TABLET BY MOUTH TWICE A DAY TAKE ONE TABLET BY MOUTH TWICE A DAY SOLD: 09/23/2020 [facility] 2 % 09/22/2020 12:00:00 AM EDT cream 30 USE 1 TEASPOONFUL MIXED WITH SALT PACKET DAILY DIRECTED USE 1 TEASPOONFUL MIXED WITH SALT PACKET DAILY DIRECTED SOLD: 11/14/2020 [facility] 2 % 09/22/2020 12:00:00 AM EDT cream 30 USE 1 TEASPOONFUL MIXED WITH SALT PACKET DAILY DIRECTED USE 1 TEASPOONFUL MIXED WITH SALT PACKET DAILY DIRECTED SOLD: 10/03/2020 [facility] Ciprofloxacin 500 MG Oral Tablet [Cipro] Cipro 09/22/2020 12:00: 00 AM EDT ORAL completed MEDENT ([facility], ) Mupirocin 20 MG/ML Topical Cream Mupirocin Calcium 09/22/2020 12:00 :00 AM EDT completed MEDENT ([facility], ) 25 mg 09/17/2020 12:00:00 AM EDT tablet 15 TAKE 1/2 TABLET BY MOUTH ONCE DAILY TAKE 1/2 TABLET BY MOUTH ONCE DAILY SOLD: 11/14/2020 [facility] 25 mg 09/17/2020 12:00:00 AM EDT tablet 15 TAKE 1/2 TABLET BY MOUTH ONCE DAILY TAKE 1/2 TABLET BY MOUTH ONCE DAILY SOLD: 09/17/2020 [facility] Hydrochlorothiazide 12.5 MG Oral Tablet hydrochlorothiazide (HYDRODIURIL) 12.5 MG tablet hydrochlorothiazide (HYDRODIURIL) 12.5 MG tablet 09/12 12:00:00 AM EDT 12.5 mg Oral active Hypertension, essential Take 1 tablet (12.5 mg total) by mouth daily [facility] Hypertension, essential Simvastatin 40 MG Oral Tablet simvastatin (ZOCOR) 40 M G tablet simvastatin (ZOCOR) 40 MG tablet 09/04/2020 12:00:00 AM EDT active TAKE ONE TABLET BY MOUTH NIGHTLY [facility] Cefuroxime 500 MG Oral Tablet Cefuroxime Axetil 08/21/2020 12:00:00 A M EDT ORAL completed MEDENT ([facility], ) Prednisone 10 MG Oral Tablet Prednisone 08/21/2020 12:00:00 AM EDT ORAL completed MEDENT ([facility], ) 10 mg 08/21/2020 12:00:00 AM EDT tablet 40 TAKE FOUR TABLETS BY MOUTH EVERY DAY FOR 4 DAYS THEN 3 ONCE DAILY FOR 4 DAYS THEN 2 ONCE DAILY FOR 4 DAYS THEN 1 ONCE DAILY FOR 4 DAYS THEN STOP TAKE FOUR TABLETS BY MOUTH EVERY DAY FOR 4 DAYS THEN 3 ONCE DAILY FOR 4 DAYS THEN 2 ONCE DAILY FOR 4 DAYS THEN 1 ONCE DAILY FOR 4 DAYS THEN STOP SOLD: 08/21/2020 [facility] 250 mg 08/21/2020 12:00:00 AM EDT tablet 40 TAKE TWO TABLETS BY MOUTH TWICE A DAY TAKE TWO TABLETS BY MOUTH TWICE A DAY SOLD: 08/21/2020 [facility] CPAP 07/18/2020 12:00:00 AM EDT active MEDENT ([facility], ) Lisinopril 40 MG Oral Tablet lisinopril (PRINIVIL,ZEST RIL) 40 MG tablet lisinopril (PRINIVIL,ZESTRIL) 40 MG tablet 06/18/2020 12:00:00 AM EDT active Hypertension, essential TAKE ONE TABLET BY MOUTH DAILY [facility] Hypertension, essential 20 mg 05/20/2020 12:00:00 AM EST tablet 14 TAKE ONE TABLET BY MOUTH TWICE A DAY FOR 7 DAYS PRIOR TO SURGERY TAKE ONE TABLET BY MOUTH TWICE A DAY FOR 7 DAYS PRIOR TO SURGERY SOLD: 05/28/2020 [facility] Prednisone 20 MG Oral Tablet Prednisone 05/20/2020 12:00:00 AM EST ORAL completed MEDENT ([facility], ) 875-125 mg 05/20/2020 12:00:00 AM EST tablet 14 TAKE ONE TABLET BY MOUTH TWICE A DAY PRIOR TO SURGERY TAKE ONE TABLET BY MOUTH TWICE A DAY CY OR TO SURGERY SOLD: 05/28/2020 [facility] 10 mg 04/01/2020 12:00:00 AM EST tablet 70 TAKE 2 TWO TIMES A DAY FOR 7 DAYS THEN TAKE ONE TABLET BY MOUTH THREE TIMES A DAY FOR 7 DAYS THEN 1 TWO TIMES A DAY FOR 7 DAYS THEN 1 ONCE DAILY FOR 7DAYS TAKE 2 TWO TIMES A DAY FOR 7 DAYS THEN TAKE ONE TABLET BY MOUTH THREE TIMES A DAY FOR 7 DAYS THEN 1 TWO TIMES A DAY FOR 7 DAYS THEN 1 ONCE DAILY FOR 7DAYS SOLD: 04/01/2020 [facility] 875-125 mg 04/01/2020 12:00:00 AM EST tablet 30 TAKE ONE TABLET BY MOUTH TWICE A DAY TAKE ONE TABLET BY MOUTH TWICE A DAY SOLD: 04/01/2020 [facility] Amoxicillin 875 MG / Clavulanate 125 MG Oral Tablet Am oxicillin/Clavulanate Potassium 04/01/2020 12:00:00 AM EST ORAL completed MEDENT ([facility], ) Amoxicillin 500 MG / Clavulanate 125 MG Oral Tablet [Augment in] Augmentin 03/16/2020 12:00:00 AM EST ORAL completed MEDENT ([facility], ) 500-125 mg 03/16/2020 12:00:00 AM EST tablet 20 TAKE ONE TABLET BY MOUTH TWICE A DAY FOR 10 DAYS TAKE ONE TABLET BY MOUTH TWICE A DAY FOR 10 DAYS SOLD: 03/17/2020 [facility] Aspir-Low 81 MG UNK 03/11/2020 12:00:00 AM EST 1.0 {tablet} active Aspir-Low 81 MG eCW1 ([facility]) 10 mg 03/11/2020 12:00:00 AM EST tablet 40 TAKE FOUR TABLETS BY MOUTH EVERY DAY FOR 4 DAYS THEN 3 ONCE DAILY FOR 4 DAYS THEN 2 ONCE DAILY FOR 4 DAYS THEN 1 ONCE DAILY FOR 4 DAYS THEN STOP TAKE FOUR TABLETS BY MOUTH EVERY DAY FOR 4 DAYS THEN 3 ONCE DAILY FOR 4 DAYS THEN 2 ONCE DAILY FOR 4 DAYS THEN 1 ONCE DAILY FOR 4 DAYS THEN STOP SOLD: 03/11/2020 [facility] Prednisone 10 MG Oral Tablet Prednisone 03/11/2020 12:00:00 AM EST ORAL completed MEDENT ([facility], ) Aspir-Low 81 MG UNK 03/11/2020 12:00:00 AM EST 1.0 {tablet} active Aspir-Low 81 MG eCW1 ([facility]) Aspir-Low 81 MG UNK 03/11/2020 12:00:00 AM EST 1.0 {tablet} active Aspir-Low 81 MG eCW1 ([facility]) Aspir-Low 81 MG UNK 03/11/2020 12:00:00 AM EST 1.0 {tablet} active Aspir-Low 81 MG eCW1 ([facility]) Prednisone 20 MG Oral Tablet Prednisone 03/04/2020 12:00:00 AM EST active MEDENT ([facility]) 20 mg 03/04/2020 12:00:00 AM EST tablet 10 TAKE ONE TABLET BY MOUTH TWICE A DAY FOR 5 DAYS TAKE ONE TABLET BY MOUTH TWICE A DAY FOR 5 DAYS SOLD: 2019 [facility] Doxycycline Monohydrate 100 MG Oral Capsule Doxycycline Shannon hydrate 100 MG 02/18/2020 12:00:00 AM EST 1.0 {capsule} active Doxycycline Monohydrate 100 MG eCW1 ([facility]) Doxycycline Monohydrate 100 MG Oral Capsule Doxycycline [place] hydrate 100 MG 02/18/2020 12:00:00 AM EST 1.0 {capsule} suspend ed Doxycycline Monohydrate 100 MG eCW1 ([facility]) Doxycycline Monohydrate 100 MG Oral Capsule Doxycycline [place] hydrate 100 MG 02/18/2020 12:00:00 AM EST 1.0 {capsule} active Doxycycline Monohydrate 100 MG eCW1 ([facility]) Doxycycline Monohydrate 100 MG Oral Capsule Doxycycline [place] hydrate 100 MG 02/18/2020 12:00:00 AM EST 1.0 {capsule} suspend ed Doxycycline Monohydrate 100 MG eCW1 ([facility]) Doxycycline Monohydrate 100 MG Oral Capsule Doxycycline [place] hydrate 100 MG 02/18/2020 12:00:00 AM EST 1.0 {capsule} active Doxycycline Monohydrate 100 MG eCW1 ([facility]) Doxycycline Monohydrate 100 MG Oral Capsule Doxycycline [place] hydrate 100 MG 02/18/2020 12:00:00 AM EST 1.0 {capsule} active Doxycycline Monohydrate 100 MG eCW1 ([facility]) Doxycycline Monohydrate 100 MG Oral Capsule Doxycycline [place] hydrate 100 MG 02/18/2020 12:00:00 AM EST 1.0 {capsule} active Doxycycline Monohydrate 100 MG eCW1 ([facility]) Doxycycline Monohydrate 100 MG Oral Capsule Doxycycline [place] hydrate 100 MG 02/18/2020 12:00:00 AM EST 1.0 {capsule} active Doxycycline Monohydrate 100 MG eCW1 ([facility]) 100 mg 02/18/2020 12:00:00 AM EST capsule 20 TAKE ONE CAPSULE BY MOUTH TWICE A DAY FOR 10 DAYS TAKE ONE CAPSULE BY MOUTH TWICE A DAY FOR 10 DAYS SOLD : 02/23/2020 [facility] Doxycycline Monohydrate 100 MG Oral Capsule Doxycycline [place] hydrate 100 MG 02/18/2020 12:00:00 AM EST 1.0 {capsule} active Doxycycline Monohydrate 100 MG eCW1 ([facility]) Doxycycline Monohydrate 100 MG Oral Capsule Doxycycline [place] hydrate 100 MG 02/18/2020 12:00:00 AM EST 1.0 {capsule} active Doxycycline Monohydrate 100 MG eCW1 ([facility]) Doxycycline Monohydrate 100 MG Oral Capsule Doxycycline [place] hydrate 100 MG 02/18/2020 12:00:00 AM EST 1.0 {capsule} active Doxycycline Monohydrate 100 MG eCW1 ([facility]) Doxycycline Monohydrate 100 MG Oral Capsule Doxycycline [place] hydrate 100 MG 02/18/2020 12:00:00 AM EST 1.0 {capsule} active Doxycycline Monohydrate 100 MG eCW1 ([facility]) Doxycycline Monohydrate 100 MG Oral Capsule Doxycycline [place] hydrate 100 MG 02/18/2020 12:00:00 AM EST 1.0 {capsule} active Doxycycline Monohydrate 100 MG eCW1 ([facility]) Doxycycline Monohydrate 100 MG Oral Capsule Doxycycline [place] hydrate 100 MG 02/18/2020 12:00:00 AM EST 1.0 {capsule} suspend ed Doxycycline Monohydrate 100 MG eCW1 ([facility]) Sulfamethoxazole 800 MG / Trimethoprim 160 MG Oral Tab let 800-160 mg SULFAMETHOXAZOLE/TRIMETHOPRIM 02/13/2020 12:00:00 AM EST tablet 20 TAKE ONE TABLET BY MOUTH TWICE A DAY TAKE ONE TABLET BY MOUTH TWICE A DAY SOLD: 02/14/2020 [facility] Sulfamethoxazole 800 MG / Trimethoprim 1 60 MG Oral Tablet [Bactrim] Bactrim DS 800-160 MG Bactrim DS 800-160 MG 02/12/2020 12:00:00 AM EST 1.0 {table t} active Bactrim DS 800-160 MG eCW1 ( [facility]) Trazodone Hydrochloride 50 MG Oral Tablet traZODone HC l 50 MG traZODone HCl 50 MG 01/28/2020 12:00:00 AM EST 1.0 {tablet_at_bedtime_as_needed} active traZODone HCl 50 MG eCW1 ([facility]) Trazodone Hydrochloride 50 MG Oral Tablet TraZODone HC l 50 MG TraZODone HCl 50 MG 01/28/2020 12:00:00 AM EST 1.0 {tablet_at_bedtime_as_needed} active TraZODone HCl 50 MG eCW1 ([facility]) Trazodone Hydrochloride 50 MG Oral Tablet traZODone HC l 50 MG traZODone HCl 50 MG 01/28/2020 12:00:00 AM EST 1.0 {tablet_at_bedtime_as_needed} active traZODone HCl 50 MG eCW1 ([facility]) Trazodone Hydrochloride 50 MG Oral Tablet TraZODone HC l 50 MG TraZODone HCl 50 MG 01/28/2020 12:00:00 AM EST 1.0 {tablet_at_bedtime_as_needed} active TraZODone HCl 50 MG eCW1 ([facility]) Trazodone Hydrochloride 50 MG Oral Tablet traZODone HC l 50 MG traZODone HCl 50 MG 01/28/2020 12:00:00 AM EST 1.0 {tablet_at_bedtime_as_needed} active traZODone HCl 50 MG eCW1 ([facility]) Trazodone Hydrochloride 50 MG Oral Tablet TraZODone HC l 50 MG TraZODone HCl 50 MG 01/28/2020 12:00:00 AM EST 1.0 {tablet_at_bedtime_as_needed} active TraZODone HCl 50 MG eCW1 ([facility]) Trazodone Hydrochloride 50 MG Oral Tablet TraZODone HC l 50 MG TraZODone HCl 50 MG 01/28/2020 12:00:00 AM EST 1.0 {tablet_at_bedtime_as_needed} active TraZODone HCl 50 MG eCW1 ([facility]) Trazodone Hydrochloride 50 MG Oral Tablet traZODone HC l 50 MG traZODone HCl 50 MG 01/28/2020 12:00:00 AM EST 1.0 {tablet_at_bedtime_as_needed} active traZODone HCl 50 MG eCW1 ([facility]) Trazodone Hydrochloride 50 MG Oral Tablet TraZODone HC l 50 MG TraZODone HCl 50 MG 01/28/2020 12:00:00 AM EST 1.0 {tablet_at_bedtime_as_needed} active TraZODone HCl 50 MG eCW1 ([facility]) Trazodone Hydrochloride 50 MG Oral Tablet traZODone HC l 50 MG traZODone HCl 50 MG 01/28/2020 12:00:00 AM EST 1.0 {tablet_at_bedtime_as_needed} active traZODone HCl 50 MG eCW1 ([facility]) Trazodone Hydrochloride 50 MG Oral Tablet TraZODone HC l 50 MG TraZODone HCl 50 MG 01/28/2020 12:00:00 AM EST 1.0 {tablet_at_bedtime_as_needed} active TraZODone HCl 50 MG eCW1 ([facility]) Trazodone Hydrochloride 50 MG Oral Tablet TraZODone HC l 50 MG TraZODone HCl 50 MG 01/28/2020 12:00:00 AM EST 1.0 {tablet_at_bedtime_as_needed} active TraZODone HCl 50 MG eCW1 ([facility]) Trazodone Hydrochloride 50 MG Oral Tablet TraZODone HC l 50 MG TraZODone HCl 50 MG 01/28/2020 12:00:00 AM EST 1.0 {tablet_at_bedtime_as_needed} active TraZODone HCl 50 MG eCW1 ([facility]) Trazodone Hydrochloride 50 MG Oral Tablet traZODone HC l 50 MG traZODone HCl 50 MG 01/28/2020 12:00:00 AM EST 1.0 {tablet_at_bedtime_as_needed} active traZODone HCl 50 MG eCW1 ([facility]) Trazodone Hydrochloride 50 MG Oral Tablet traZODone HC l 50 MG traZODone HCl 50 MG 01/28/2020 12:00:00 AM EST 1.0 {tablet_at_bedtime_as_needed} active traZODone HCl 50 MG eCW1 ([facility]) Trazodone Hydrochloride 50 MG Oral Tablet TraZODone HC l 50 MG TraZODone HCl 50 MG 01/28/2020 12:00:00 AM EST 1.0 {tablet_at_bedtime_as_needed} active TraZODone HCl 50 MG eCW1 ([facility]) Trazodone Hydrochloride 50 MG Oral Tablet TraZODone HC l 50 MG TraZODone HCl 50 MG 01/28/2020 12:00:00 AM EST 1.0 {tablet_at_bedtime_as_needed} active TraZODone HCl 50 MG eCW1 ([facility]) Trazodone Hydrochloride 50 MG Oral Tablet TraZODone HC l 50 MG TraZODone HCl 50 MG 01/28/2020 12:00:00 AM EST 1.0 {tablet_at_bedtime_as_needed} active TraZODone HCl 50 MG eCW1 ([facility]) Trazodone Hydrochloride 50 MG Oral Tablet traZODone HC l 50 MG traZODone HCl 50 MG 01/28/2020 12:00:00 AM EST 1.0 {tablet_at_bedtime_as_needed} active traZODone HCl 50 MG eCW1 ([facility]) Simvastatin 40 MG Oral Tablet simvastatin (ZOCOR) 40 M G tablet simvastatin (ZOCOR) 40 MG tablet 01/09/2020 12:00:00 AM EDT 40 mg Oral aborted Take 1 tablet (40 mg total) by mouth nightly [facility] Levofloxacin 500 MG Oral Tablet Levofloxacin 500 MG 01/01/2020 1 2:00:00 AM EDT 1.0 {tablet} active Levofloxaci n 500 MG eCW1 ([facility]) Levofloxacin 500 MG Oral Tablet Levofloxacin 500 MG 01/01/2020 1 2:00:00 AM EDT 1.0 {tablet} active Levofloxaci n 500 MG eCW1 ([facility]) 500 mg 01/01/2020 12:00:00 AM EDT tablet 10 TAKE ONE TABLET BY MOUTH EVERY DAY FOR 10 DAYS TAKE ONE TABLET BY MOUTH EVERY DAY FOR 10 DAYS SOLD: 020 [facility] Levofloxacin 500 MG Oral Tablet Levofloxacin 500 MG 01/01/2020 1 2:00:00 AM EDT 1.0 {tablet} active Levofloxaci n 500 MG eCW1 ([facility]) Levofloxacin 500 MG Oral Tablet Levofloxacin 500 MG 01/01/2020 1 2:00:00 AM EDT 1.0 {tablet} suspended Levofloxa analia 500 MG eCW1 ([facility]) Levofloxacin 500 MG Oral Tablet Levofloxacin 500 MG 01/01/2020 1 2:00:00 AM EDT 1.0 {tablet} active Levofloxaci n 500 MG eCW1 ([facility]) Cefuroxime 500 MG Oral Tablet Cefuroxime Axetil 12/27/2019 12:00:00 A M EDT ORAL completed MEDENT ([facility]) 500 mg 12/27/2019 12:00:00 AM EDT tablet 20 TAKE ONE TABLET BY MOUTH TWICE A DAY WITH FOOD UNTIL GONE TAKE ONE TABLET BY MOUTH TWICE A DAY WIT H FOOD UNTIL GONE SOLD: 12/28/2019 [facility] Amoxicillin 875 MG / Clavulanate 125 MG Oral Tablet Am oxicillin/Clavulanate Potassium 11/20/2019 12:00:00 AM EDT ORAL completed MEDENT ([facility], ) Lisinopril 40 MG Oral Tablet lisinopril (PRINIVIL,ZEST RIL) 40 MG tablet lisinopril (PRINIVIL,ZESTRIL) 40 MG tablet 08/20/2019 12:00:00 AM EDT 40 mg Oral aborted Hypertension, essential T uli 1 tablet (40 mg total) by mouth daily [facility] Hypertension, essential Hydrochlorothiazide 12.5 MG Oral Tablet hydrochlorothiazide (HYDRODIURIL) 12.5 MG tablet hydrochlorothiazide (HYDRODIURIL) 12.5 MG tablet 08/06 12:00:00 AM EDT 12.5 mg Oral aborted Hypertension, essential Take 1 tablet (12.5 mg total) by mouth daily [facility] Hypertension, essential doxycycline hyclate 100 MG Oral Tablet DOXYCYCLINE HYCLATE 0 06/19/2019 12:00:00 AM EDT tablet 60 TAKE ONE TABLET BY MOUTH TWI CE A DAY TAKE ONE TABLET BY MOUTH TWICE A DAY SOLD: 02/14/2020 [facility] Insurance Providers Payer name Policy type / Coverage type Policy ID Covered libertarian ID Covered libertarian's relationship to walsh Policy [place] Plan Information [id number] [employer] PPO 2 [id number] 1 [id number] [employer] [id number] SP [id number] Tpa/[place] Eff () Workers Compensation [id number] Self [id number] [employer] ([place]) Workers Compensation [id number] Self UMR U [id number] Self [id number] MEDICARE A [id number] Self [id number] R [id number] Fabi [id number] MEDICARE [id number] Fabi [id number] [id number] R [id number] [phone] [id number] MEDICARE [id number] xxxxxxxxxxx [id number] Medicare Natl Gov't Servi Medicare Primary [id number] Self [id number] [employer] Medigap Part B [id number] Self [id number] r Commercial [id number] Self [id number] [place] Medicare Primary [id number] Self [id number] R [facility] [id number] SP [id number] [facility]/[employer] Medigap Part B [id number] Self [id number] MEDICARE C [id number] S [id number] UMR O [id number] S [id number] [employer] Commercial [id number] Self [employer] (pr) Commercial [id number] Self [employer] PPO O [id number] S [id number] [employer] Commercial [id number] Self SELF PAY ONLY [id number] SP [id number] [employer] C1 [id number] SELF PAY 2 UNAVAILABLE 1 UNAVAILA BLE MEDICARE [id number] SP [id number] UMR [facility] [id number] SP [id number] Problems, Conditions, and Diagnoses Code Display Name Description Problem Type Effective Dates Data Source(s) 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, nasal typ e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, nasal type Diagnosis 01/15/2021 12:00:00 AM EDT [facility] 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, 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, 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, 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, extranodal and solid organ sites Diagnosis 01/01/2021 11:54:06 AM EDT [facility] 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, unspecified site Unspecified B-cell lymphoma, unspecified site Diagnosis 11/11/2020 12:00:00 PM EDT [facility] I10 Essential (primary) hypertension Essential (primary) h ypertension Diagnosis 09/12/2020 02:21:30 PM EDT [facility] R60.9 Edema, unspecified Edema, unspecified Diagnosis 04/2020 02:21:30 PM EDT [facility] R06.00 Dyspnea, unspecified Dyspnea, unspecified Diagnosis 09/12/2020 02:21:30 PM EDT [facility] I25.10 Atherosclerotic heart diseas e of [place] coronary artery without angina pectoris Atherosclerotic heart disease of [place] Diagnosis 09/12/2020 02:21:30 PM EDT [facility] 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, unspecif ied Rheumatic mitral valve disease, unspecif Diagnosis 09/12/2020 02:15:18 PM EDT [facility] E78.2 Mixed hyperlipidemia Mixed hyperlipidemia Diagnosis 07/18/2020 10:22:45 AM EDT [facility] Z95.5 Presence of coronary angioplasty implant and graft Presence of coronary angioplasty implant Diagnosis 07/18/2020 10:22:45 AM EDT [facility] R60.0 Localized edema Localized edema Diagnosis 07/18/2020 10:2 2:45 AM EDT [facility] Z23 [id number] Encounter for immunization Problem 12:00:00 AM EDT eCW1 ([facility]) G47.33 [id number] Obstructive sleep apnea Problem 12/02/2020 1 2:00:00 AM EDT eCW1 ([facility]) I25.10 [id number] Coronary artery dise ase involving cata[place] coronary artery of [place]ata[place]ba heart without angina pectoris Problem 12/02/2020 12:00:00 AM EDT eCW1 ([facility]) 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 12/02/2020 12:00:00 AM EDT eCW1 ([facility]) B44.9 [id number] Aspergillosis Problem 12/02/2020 12:00:00 AM EDT eCW1 ([facility]) J32.0 [id number] Chronic maxillary sinusitis Problem 12/03/19 12:00:00 AM EDT eCW1 ([facility]) C85.91 [id number] Lymphoma of lymph nodes of head, unspecified lymphoma type Problem 12/02/2020 12:00:00 AM EDT eCW1 ([facility] by [facility]) 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 Chronic fronto ethmoidal sinusitis Problem 11/19/2020 12:00:00 AM EDT MEDMEGAN ([facility] Koo) Z95.1 Hx of CABG Hx of CABG [id number] 07/18/2020 12:00:00 AM ED T [facility] J47.9 [id number] Recurrent bronchiectasis Problem 06/05/2020 12:00:00 AM EDT eCW1 ([facility]) R73.01 [id number] IFG (impaired fasting glucose) Problem 06/05/2020 12:00:00 AM EDT eCW1 ([facility]) G47.33 [id number] BALAJI (obstructive sleep apnea) Problem 06/05/2020 12:00:00 AM EDT eCW1 ([facility]) J32.9 [id number] Chronic sinusitis, unspecified Problem 03/10/2020 12:00:00 AM EST eCW1 ([facility]) R79.89 [id number] Elevated LFTs Problem 02/27/2020 12:00:00 AM EST eCW1 ([facility]) Z12.11 [id number] Colon cancer screening Problem 02/19/2020 12 :00:00 AM EST eCW1 ([facility]) J32.1 [id number] Chronic frontal sinusitis Problem 02/12/2020 12:00:00 AM EST eCW1 ([facility]) J32.9 Chronic sinusitis Rhinosinusitis Problem 01/01/2020 12: 00:00 AM EDT eCW1 ([facility]) Surgeries/Procedures Procedure Description Date Indications Data Source(s) OFFICE OUTPATIENT VISIT 15 MINUTES 01/08/2021 12:00:00 AM EDT MEDENT ([facility], ) Imm: Flublok Quadrivalent 18 years & older 0.5mL IM Influenz a 12/23/2020 12:00:00 AM EDT eCW1 ([facility]) Endoscopy Nasal/Sinus Surgical W/BX/Polypectomy/Debridement 12/09/2020 12:00:00 AM EDT MEDENT ([facility]) OFFICE OUTPATIENT VISIT 15 MINUTES 12/09/2020 12:00:00 AM EDT MEDENT ([facility]) Endoscopy Nasal/Sinus Surgical W/BX/Polypectomy/Debridement 12/02/2020 12:00:00 AM EDT MEDENT ([facility]) OFFICE OUTPATIENT VISIT 15 MINUTES 12/02/2020 12:00:00 AM EDT MEDENT ([facility]) Endoscopy Nasal/Sinus Surgical W/BX/Polypectomy/Debridement 11/19/2020 12:00:00 AM EDT MEDENT ([facility]) OFFICE OUTPATIENT VISIT 25 MINUTES 11/19/2020 12:00:00 AM EDT MEDENT ([facility]) Endoscopy Nasal Diagnostic 11/11/2020 12:00:00 AM EDT MEDENT ([facility]) Endoscopy Nasal Diagnostic 10/27/2020 12:00:00 AM EDT MEDENT ([facility]) Spirometry 10/10/2020 12:00:00 AM EDT M EDENT ([facility]) Plethysmography Determination Lung Volumes & Per Airway Resi st 10/10/2020 12:00:00 AM EDT MEDENT ([facility]) DIFFUSING CAPACITY 10/10/2020 12:00:00 AM EDT MEDENT ([facility]) OFFICE OUTPATIENT VISIT 15 MINUTES 10/09/2020 12:00:00 AM EDT MEDENT ([facility]) Endoscopy Nasal Diagnostic 09/22/2020 12:00:00 AM EDT MEDENT ([facility]) OFFICE OUTPATIENT VISIT 25 MINUTES 09/22/2020 12:00:00 AM EDT MEDENT ([facility]) Spirometry 09/09/2020 12:00:00 AM EDT M EDENT ([facility]) OFFICE OUTPATIENT VISIT 25 MINUTES 09/09/2020 12:00:00 AM EDT MEDENT ([facility]) OFFICE OUTPATIENT VISIT 15 MINUTES 06/26/2020 12:00:00 AM EDT MEDENT ([facility]) Septoplasty/Submucous Resection Contour Or Replacement W/Gra ft 06/09/2020 12:00:00 AM EDT MEDENT ([facility]) Endoscopy Nasal/Sinus Surgical W/ Ethmoidectomy Total 06/09/2020 12:00:00 AM EDT MEDENT ([facility]) Endoscopy Nasal/Sinus Surgical Remove Tissue From Maxillary Sinus 06/09/2020 12:00:00 AM EDT MEDENT ([facility]) OFFICE OUTPATIENT VISIT 15 MINUTES 05/20/2020 12:00:00 AM EST MEDENT ([facility]) BIOPSY INTRANASAL 05/12/2020 12:00:00 AM EST MEDENT ([facility]) OFFICE OUTPATIENT VISIT 25 MINUTES 05/07/2020 12:00:00 AM EST MEDENT ([facility]) Endoscopy Nasal Diagnostic 04/01/2020 12:00:00 AM EST MEDENT ([facility]) OFFICE OUTPATIENT NEW 45 MINUTES 04/01/2020 12:00:00 A M EST MEDENT ([facility]) Results ID Date Data Source [id number] 01/15/2021 09:19:41 AM EDT [facility] Name Value Range Interpretation Code Description Data Kayley rce(s) Supporting Document(s) Leukocytes [#/volume] in Blood by Automated count 9.7 10*3/uL 4-10 [facility] Erythrocytes [#/volume] in Blood by Automated count 3.41 10*6/uL 4.6- 6.1 L [facility] Hemoglobin [Mass/volume] in Blood 10.9 g/dL 13.5-18 L [facility] Hematocrit [Volume Fraction] of Blood by Automated count 32.3 % 4 1-53 L [facility] Erythrocyte mean corpuscular volume [Entitic volume] by Auto mated count 94.8 fL 80-96 [facility] Erythrocyte mean corpuscular hemoglobin [Entitic mass] by Automated count 31.8 pg 27-33 [facility] Erythrocyte mean corpuscular hemoglobin concentration [Mass/volume] by Automated count 33.6 g/dL [facility].0-[facility] width [Ratio] by Automated count 13.9 % 11.5-14.5 [facility] Platelets [#/volume] in Blood by Automated count 342 10*3/uL 150-400 [facility] Differential cell count method - Blood [facility] Neutrophils/100 leukocytes in Blood by Automated count 65 % [facility] Lymphocytes/100 leukocytes in Blood by Automated count 17 % [facility] Monocytes/100 leukocytes in Blood by Automated count 17 % [facility] Eosinophils/100 leukocytes in Blood by Automated count 0 % [facility] Basophils/100 leukocytes in Blood by Automated count 1 % [facility] Neutrophils [#/volume] in Blood by Automated count 6.44 10*3/uL 1.8-7 .0 [facility] Lymphocytes [#/volume] in Blood by Automated count 1.60 10*3/uL 1.2-4 .0 [facility] Monocytes [#/volume] in Blood by Automated count 1.61 10*3/uL 0-0.8 H [facility] Eosinophils [#/volume] in Blood by Automated count 0.00 10*3/uL 0-0.5 [facility] Basophils [#/volume] in Blood by Automated count 0.05 10*3/uL 0-0.2 [facility] Nucleated erythrocytes/100 leukocytes [Ratio] in Blood by Automated count 0 /100{WBCs} 0-0 [facility] ID Date Data Source [id number] 01/15/2021 09:48:17 AM [facility] Name Value Range Interpretation Code Description Data Kayley rce(s) Supporting Document(s) Prothrombin time (PT) 13.3 s 11.6-14.0 [facility] INR in Platelet poor plasma by Coagulation assay 1.05 [facility] Routine intensity oral anticoagulation I NR is typically 2.0-3.0. Target INR must be clinically individualized. ID Date Data Source [id number] 01/15/2021 10:16:25 AM [facility] Value Range Interpretation Code Description Data Kayley rce(s) Supporting Document(s) Amylase [Enzymatic activity/volume] in Serum or Plasma 77 U/L 28- 103 [facility] ID Date Data Source [id number] 01/15/2021 10:16:25 AM [facility] Value Range Interpretation Code Description Data Kayley rce(s) Supporting Document(s) Lipase [Enzymatic activity/volume] in Serum or Plasma 83 U/L 13-6 0 H [facility] ID Date Data Source [id number] 01/15/2021 10:16:25 AM [facility] Value Range Interpretation Code Description Data Kayley rce(s) Supporting Document(s) Albumin [Mass/volume] in Serum or Plasma by Bromocresol green (BCG) dye binding method 3.9 g/dL 3.5-5.2 [facility] Bilirubin.total [Mass/volume] in Serum or Plasma 0.3 mg/dL <1.2 [facility] Calcium [Mass/volume] in Serum or Plasma 8.5 mg/dL 8.8-10.2 L [facility] Chloride [Moles/volume] in Serum or Plasma 99 mmol/L 98-107 [facility] Creatinine [Mass/volume] in Serum or Plasma 0.87 mg/dL 0.70-1.20 [facility] Glucose [Mass/volume] in Serum or Plasma 107 mg/dL 70-140 [facility] Alkaline phosphatase [Enzymatic activity/volume] in Serum or Plasma 107 U/L 40-129 [facility] Potassium [Moles/volume] in Serum or Plasma 4.5 mmol/L 3.4-5.1 [facility] Protein [Mass/volume] in Serum or Plasma 6.4 g/dL 6.4-8.3 [facility] Sodium [Moles/volume] in Serum or Plasma 137 mmol/L 136-145 [facility] Aspartate aminotransferase [Enzymatic activity/volume] in Serum or Plasma 33 U/L <40 [facility] Urea nitrogen [Mass/volume] in Serum or Plasma 8 mg/dL 8-23 [facility] Osmolality of Serum or Plasma by calculation 283 mosm/kg 275-300 [facility] Creatinine/Urea nitrogen [Mass Ratio] in Serum or Plasma 9 [facility] Bicarbonate [Moles/volume] in Serum 28 mmol/L 22-29 [facility] Alanine aminotransferase [Enzymatic activity/volume] in Seru m or Plasma 38 U/L <41 [facility] Anion gap 3 in Serum or Plasma 10 mmol/L 8-15 [facility] Glomerular filtration rate/1.73 sq M pre dicted among non-blacks [Volume Rate/Area] in Serum or Plasma by Creatinine-based formula (MDRD) 87 mL/min/1.73m2 >60 [facility] Glomerular filtration rate/1.73 sq M pre dicted among blacks [Volume Rate/Area] in Serum or Plasma by Creatinine-based formula (MDRD) >60 [facility] ID Date Data Source [id number] 01/15/2021 10:16:25 AM [facility] Value Range Interpretation Code Description Data Kayley rce(s) Supporting Document(s) Triglyceride [Mass/volume] in Serum or Plasma 81 mg/dL <150 [facility] ID Date Data Source [id number] 01/15/2021 10:16:25 AM [facility] Value Range Interpretation Code Description Data Kayley rce(s) Supporting Document(s) Thyrotropin [Units/volume] in Serum or Plasma 0.750 u[IU]/mL 0.270-4. 200 [facility] ID Date Data Source [id number] 01/08/2021 05:22:53 PM [facility] Value Range Interpretation Code Description Data Kayley rce(s) Supporting Document(s) Progress Note [facility] XRDQZw5iYcAZZhNf86/KLOrjEWBws1XbGYniOXd8SMpeOEBhR9EyIJA3gD4hQXL7IAeTAbYoMxYnGRX4 lbm [file] AgICAgICAgICAgICAgICAgICAgICAgICAgICAgICAgICAgICAgICAgICAgICAgICAgICAgICAgICAgIC AgICAgICAgICAgICAgICAgICAgICAgICAgICAgDQogICAgICAgICAgICAgICAgICAgICAgICAgICAgIC AgICAgICAgICAgICAgICAgICAgICAgICAgICAgICAg ICAgICAgICAgICAgICAgICAgICAgICAgICAgICAgICAgICAgICAgDQogICAgICAgICAgICAgICAgICAg ICAgICAgICAgICAgICAgICAgICAgICAgICAgICAgICAgICAgICAgICAgICAgICAgICAgICAgICAgICAg ICAgICAgICAgICAgICAgICAgICAgDQogICAgICAgIC AgICAgICAgICAgICAgICAgICAgICAgICAgICAgICAgICAgICAgICAgICAgICAgICAgICAgICAgICAgIC AgICAgICAgICAgICAgICAgICAgICAgICAgICAgICAgDQogICAgICAgICAgICAgICAgICAgICAgICAgIC AgICAgICAgICAgICAgICAgICAgICAgICAgICAgICAg ICAgICAgICAgICAgICAgICAgICAgICAgICAgICAgICAgICAgICAgICAgDQogICAgICAgICAgICAgICAg ICAgICAgICAgICAgICAgICAgICAgICAgICAgICAgICAgICAgICAgICAgICAgICAgICAgICAgICAgICAg ICAgICAgICAgICAgICAgICAgICAgICAgDQogICAgIC AgICAgICAgICAgICAgICAgICAgICAgICAgICAgICAgICAgICAgICAgICAgICAgICAgICAgICAgICAgIC AgICAgICAgICAgICAgICAgICAgICAgICAgICAgICAgICAgDQogICAgICAgICAgICAgICAgICAgICAgIC AgICAgICAgICAgICAgICAgICAgICAgICAgICAgICAg ICAgICAgICAgICAgICAgICAgICAgICAgICAgICAgICAgICAgICAgICAgICAgDQogICAgICAgICAgICAg ICAgICAgICAgICAgICAgICAgICAgICAgICAgICAgICAgICAgICAgICAgICAgICAgICAgICAgICAgICAg ICAgICAgICAgICAgICAgICAgICAgICAgICAgDQogIC AgICAgICAgICAgICAgICAgICAgICAgICAgICAgICAgICAgICAgICAgICAgICAgICAgICAgICAgICAgIC JxZZAkFLPtBUKsPCGgZSQkQXWtWTSzTFEkXNXrAZUdDRJnSAYeYMd8V9zuFQGqMIOoCW4lTSe9Ox4+DQ xCWlFeSLD2nhNxvB4PXX9jx8QhJClhJYCll5NmWAy5 FR5SBVAbKJggSE4MALxywf2WOZPdQPEuyYUWo4kiSjAfRSE4MSAvFmddSP8OIRLsM3bkerLbMYFkNAYQ EFxiUPBQJCEnGZEtCaSgVxHzPSEmVOHrCYWJULG3SAUvRpUwAFgnPE3Ys8XfgNP8STd+Gj6NEP9nj5Zy DApuCFRfZW0typ8PHHcOTdMyS6LjdmS1LIH5PXQqJj 0LZQSmHBZlmWGyXVRhQDQPNwHyD6IjoM25MCQECk5+HXiqhjMsZkhFRfC6JYTmh6MsAMu5CJ9DWRKtTE y1dJGhRIFiL8Oxk9DvFd76QUAsLrjsAxexn8eqnoGcDLGftEdoSBlcREVsMADeSYPbJxrgOiTtKVRnSu jiPVAODFnDZrKvP1Hat6KeQmN9VRFeStOcWMgmKKPf OiX8ZT27oPquRK3COAKhQXEqCB12YYP7YZSwVz1EBa6XLcHjKM6xjt0MBdQbFB4frw5HYHbJQrFsO1M4 hKNaW1Knnp61HU7VzWE5sIPlYR4QqF1qNA6Hk1TjJVBqCdLtAWGwDXJuGFTnAEPuJrZnMV4DIRAgBoOr fQZhKIWrTwpgBAVoXbWaJuMeQB0PNDXrVCT8UV7OPO 8FCwchD8FJOKzsiVqvNnHDEZL/HGUXWENRQXgxJUYsM59KU9QUIFjXTasvJAfJEmdrIf4vODt+Pg0KZW 9yt0XaTEu4MXHvJG4qod9YCRwQNsNtR4X0jTXzY1X4SXhgJc1IYCCxMWEaKhAuXTFUNUudMF9MRG1vzg T7UI6MaGHgFCVhAUMrqSQoKJa3F19cqJJjEAlvRB6K ICA+Pallavi+Wd4BFYWlBZJzHBVkTqLbBYVBZcDcL7JoM3DLz6ZrT3LlDZ78jKhbdrQnRKizEV6MOY6qKLOp CMCRQV5GpAYscZ5ianZuPUVjYUIBGwNpL69vjCAhWWCiHBL5HBZpQj1NMJJtB8YvkwYaxFolyaAtQPBu ERRDUZ2LCDbpodHdxJUktQasRK75xSfhID3QGy2NFw IqPK7yhw1UyDMyQx1WEWD6ZF3CEJNkMLMxRFSfATC9WRPaPhTmHIheDDVhVISoWHA2TDDuCVOkGQ8QFn EfCFInRWH0NphaGMZgJKAxgk8BQNNjIUT7BMAyIALkSNVgUNNfADiaSRHnHWYeZJC3GJQfTYKdJR9USf XsNWPvGER0ZVsrIOJjOLKexl9BTTLbTGE1IZu9LNDs JASzTZMxAKrfMXUaNEXdBje9LNPfTVEuIX4BZaRyYVHqUUcmUuEsAZUmNMAhwx5XVNWhBRUtEZKsEEBw BGYtEGXeCAkkSVRwOZQnCVHqOWNvHARyTH3TAiOtJMJdFAM0BVQcMTEbJDYeqp1AMGFvPSUxGIXkOoFb VYHyLFAxKPecIGDuZSQ9SKNwFJXnHTAcHG4XErVmHO GoPIi1EMRlQMCgANRbmq6ZAZBoLLYaMlw7DpAnPXBmSNWoQPcmIVIkKEJ4FxtfGLKiSIOgGC4EIlLjUO DzOTi9PLBcQCBzMVNxyr4GIXXnGEZbVYz2UnQeJYLaUFXwGKnuJXFyLKWvXNWwSAJdLXPzLT8DAxMxNQ UrNnTuTqZfHUYzNBEqdx6TJGMyCMKhYRD7YSQtIZXh ZJXwIJgyZHWaAFZwRvc4CQArWPMbNW8OPgDbGPOuViY0EpFmLHPoIKGhsb7WJJMoPGI8CWV2XDZiHFHx NZPpBPxuDMBoGQB3ReH1WIUmPTNeXU3FErOxDJNlDYZ0GmOdVKMaLKJhca5RBUOuEOT7QCHiLHUyELFk KVEsRCxsHFFjOME3Ldc1YBPiCZZeJT4XUxIcNYSnVU W8ELwhAEKuVMMfgw7YXVIuDHV3YdssUmZaUHIvQUTaNSzhFYYkWGX3FOa1VJEwPVCeWT8AFtKxRYNoYR P5RMFcFOBfAKDxpd3ADKZeTRC4LnE1UIZvOSZvFSVyXOgrXGBgTKGoPznpBEUuQOJiUE8NXdMcVJFmWC G0BQDeAXVnQFGgdw2RAMNcVYC0Mgu8NyByWTPzOYGr HCsdRPIuVIXqUGtgICPfADWfCW5AAhTbBLZnGSV7MaCcGEDxIYNdqy3COBHgAHB4MVujSuCxCZKbGBAx HLfaRCTpNSM0ZJMnTVRzSGGhHZ2VIxFrPIveMZOXDsz0VZgiM4z2KAC1NM9AM0Axw5PtWWAnWPKAGFmy IM5qgaZoWSBqKv9RN4uRVzr3HBK9RCAcTCDrT2SaYV FyThA8ELf7IWpaVtZ2CEN5HB9xXUykIoJ8BPAhLeO6KRD2IHTrAIP5CoV9ItH8TcHeHnreDlVoOS1GQm 4QFsZ0EXP1nNEgJa5FEVNcRKHCYaUnRC9DJFt= ID Date Data Source [id number] 01/01/2021 01:03:24 PM EDT [facility] Name Value Range Interpretation Code Description Data Kayley rce(s) Supporting Document(s) Progress Note [facility] QHIHJx0lDqTDToFo89/BJEhlZNNzm7TjEIyvTIf4TVeoHMYbN3PuTNM3yI7aYGZ6BVgYMfWkOiDxTMQu lbm OySoaDWbLmQDRiAajHAdPrTXpoKmqdeGGlCN7SgTW4SSXaZ04xXMJmNKPbN9EcMTLdDLD+Ov9FWBEphP OxDV3JJptN7S5tm2dJUx8pdH5xodQWQ7bo6vFaWNyCugytxHMptaOx98lsxxQe25oU21L3/c31boOS7M pt5rYvnV4WSBXfE5Lhkv7XpXMeMQg//isGvmtZlsj+ bH/1QyWuZ+EEsrP3SIhib5Z/skHkBmUFll/ckP5qy/g4UYgRggpAFPrZ7A29eDrEumVCofNX0thQf6B4 Tuarp+SuPh9B0hy2Ez66Xk+8EHYY+Bzz9l6khyh+E6lIezyq0PsBw+IP9ysaYPfLdHU13M1wkGYg8pk2 buKBLzLzn5tv46q6EWc+gobZFbQj4TsrP2GUJ7MTIV NxY5Z/xbaALvYgiUSQo2MIomlWRpdI1MuBsq+Caleb/fHX6thOr9Q9gT1z1fjS4E10vGnkwJHopcz2giMp [file] hims clerk/keaj+IP2dm6AR3AGQZWoys9DEMd2/mEBriYkmjXyRknZb0keDEToMXiFgdeNlDF+lbzOrlxhVPEtd [file] AgICAgICAgICAgICAgICAgICAgICAgICAgICAgICAgICAgICAgICAgICAgICAgICAgICAgICAgICAgIC AgICANCiAgICAgICAgICAgICAgICAgICAgICAgICAg ICAgICAgICAgICAgICAgICAgICAgICAgICAgICAgICAgICAgICAgICAgICAgICAgICAgICAgICAgICAg ICAgICAgICAgICAgICANCiAgICAgICAgICAgICAgICAgICAgICAgICAgICAgICAgICAgICAgICAgICAg ICAgICAgICAgICAgICAgICAgICAgICAgICAgICAgIC AgICAgICAgICAgICAgICAgICAgICAgICANCiAgICAgICAgICAgICAgICAgICAgICAgICAgICAgICAgIC AgICAgICAgICAgICAgICAgICAgICAgICAgICAgICAgICAgICAgICAgICAgICAgICAgICAgICAgICAgIC AgICAgICANCiAgICAgICAgICAgICAgICAgICAgICAg ICAgICAgICAgICAgICAgICAgICAgICAgICAgICAgICAgICAgICAgICAgICAgICAgICAgICAgICAgICAg ICAgICAgICAgICAgICAgICANCiAgICAgICAgICAgICAgICAgICAgICAgICAgICAgICAgICAgICAgICAg ICAgICAgICAgICAgICAgICAgICAgICAgICAgICAgIC AgICAgICAgICAgICAgICAgICAgICAgICAgICANCiAgICAgICAgICAgICAgICAgICAgICAgICAgICAgIC AgICAgICAgICAgICAgICAgICAgICAgICAgICAgICAgICAgICAgICAgICAgICAgICAgICAgICAgICAgIC AgICAgICAgICANCiAgICAgICAgICAgICAgICAgICAg ICAgICAgICAgICAgICAgICAgICAgICAgICAgICAgICAgICAgICAgICAgICAgICAgICAgICAgICAgICAg ICAgICAgICAgICAgICAgICAgICANCiAgICAgICAgICAgICAgICAgICAgICAgICAgICAgICAgICAgICAg ICAgICAgICAgICAgICAgICAgICAgICAgICAgICAgIC AgICAgICAgICAgICAgICAgICAgICAgICAgICAgICANCiAgICAgICAgICAgICAgICAgICAgICAgICAgIC AgICAgICAgICAgICAgICAgICAgICAgICAgICAgICAgICAgICAgICAgICAgICAgICAgICAgICAgICAgIC AgICAgICAgICAgICANCjw/nECzC6ganZKcxvH6T5tj Am5DMn4NKY3vb6MlDRRpRZkedtItRcsUElFxRLWgHayGEfd3TMmmOP5XbLKkO2JqO0CxESxbLE5IFWBt QPCbdGLvXZTrUPQcKuR2YDEdXZguYH1ItCLdOAfcHMDkAKZzZXQtDATaYTOfFGUKTTZoNFWqGrLuUTRt BKTxMGLlGMJYPQ9CKzNlV1JunP39GJEMPg4+DQplbm FkJfeZVwP2CSHdl7BmICd0HU5JFFIfWpmwz1GxKBCdEAYTIDjcIZ6QDGI4DXYqBOXdEq7DFCMqO348ip YlJN4POd8XUdDaKJ5kak7TSZLfQHBuOuvEVqj9NLlpUC2GtJUhZXaLpn9vvoMatjPMx9VakeZykMOHzT Vum3JnMFDBXSVcnALyWIDTRHFucMVaQX2hZK9sWVSa ACWtCnEfDMNHWQ1WLTDxNYCppEYqYDEsKGHNNH8FWXiyEFK5ICHocfPywJOmVIbxWD8TZMHhrmFcAVyc MCBSDQo+Cw3MCW9jx8KcKTv5RHEut2SsDXd9RP3NIJWeSHyeOXRrOP6ul2DsV6Y2GkZ8vDWuX2bfliza Z0TuxkJtieVxRTLfVDVcOF3KMY0DUE9XMECkLHlmST 2NOHU5PMs2DgCsATLoQUTeIMW5Cg3yLDwmBK9JWIg5G4KgC6GMDKKqSRWSZSQeqNR2TJTFQp1GM8WPLi aFTTDCQj8LAhEoX1IHF8bEV86UXC8TBMU+PiANCj4+OAkiasDmHhiFUfJlRWTrl2PzCAb6KN6ZXHVjXM ngUZ9ATSJbeV4hHNdyCC2EZnS1ZbZcZQCHZxAvH16j uQFrPWv0J0IbNyQbBTYcMauqMMDmTCuzYdEdKRMcFlEhVPnmFU6+ID4+MSqvRE5JRCwqhvOvMHZhKk6E CXFdNNWjSK9eIRAvJMRsU7E9xUnjLIRRGxOvY2shvvmtKW7lQZYpD888oIrffmUeMMP7QPUpSc2ZCZCa OMN5BOPkbMJcEKxmVPVCFAjmRM4WiWGaGEY2vH7vCN feVVXkLWMjA5oBPgZbxRysZG48tDgmxtNigRNoCMo+Qg2YNP8mg1JkJEt6udFzZZxmVGUgQJqcFBNcAW SmLNJeQCK6YBQ0EIDIXeStAPRcRHZhYXidLLWiVHRmji0DHSByUOL6IkCvMGMqKKEqPSNcRUahOLLiGG O5WDH8OSStWTAhRU3KJgAlHFHwCMDlNUvmVKHxWIYx np4GREMxIMYhSeRyWBJiTPYgYJRoOFfsWGLzGCY4XEXgTBGaLMUyYK3EPlZwGTBsNYH6PvQoPGHtSWBt gs4XOYCoDDZdKur6GjRiVAEkQVFyWJlnZJScUPQ5JKz5PQHnTQHtDJ6ZXuOhMGRnYEDoXILlUHUgZDAj oy6ARYRtADXeASP5KPKdOUNfUEBjQNpnOXLcBHSiWL l8GOMxDZLfGQ6WSyZvRCTtRAOpXFTfTMTyZHSzju8HBDPoSZGxCNfoIFPvKAOsBHCjKIsdHLPiCKY2FS L2UOYdVZRhPA5TEoXgNNIbZgJ2YhBqFWCcTWYmlb1IHMCqGOOmDVA5OLUlKFVxXMJvQEoaZORpYYPdDn I2LRRkVHXaFF6OOyLwQKUjRaJ4JiWkNOCxHWHhtn9N CZJbOGOxNfFjQNSfCHZkYEWpGXrxXOKhEQOuDTK3URGuTLPfLX6VVeDwYHWqVhIfHiFcQDUkGFIfiq3A DLTiGOJlGqG2SHHcJGLmHCPwVRgwTVKpEOP3Jbv1HIIaIPReRA3JUgDnUTHfKbBaBCXbMBToZWCmrh7O XOFmEUWmHHCqOmViGESjQKJoYJyuHGUkPPU3PAthYT GwUPSbXP9KJyBdDFTfDoO0VAtrJPFyNUJfsk8APODeFNJvHoL2QyZgHCFzJTYdMXfwIWHeTUE7IFPbCX DhPZRzZH3PAaXkFENuDuumYZWxJFHtAEVdxe5HMSZjTSC6MTN5OYDlHSWaEFNuPPdnYKFlYAU9Iig2ZK TtTWSdQG6VMeCsWNXmMKf0ZHJjOBIoYMXxyu5OEBHx HUX6TUT1LyHkVVItBDOrEQxyXSIhHVD7Eqw6PWWfAWAwGU6BEeDjCGDzUVXhYfQwGEXeFVZbfp3SBLNd NSA1TLJxJKKiHOErCTZzGDrdFHXzLXEsLTt0RNDnWBHkRL2EUwMtYTAzZWZ5ZUGgCJAnCWRpbl3YPHQx AMH5DEy7KnJjPKKcJWDgIHwaIJOwYYC0EId9ZIImLX FbCA6XWhFsVFOuJJCbWpSsONJnHJAomt3DGOMtGNX9OuD9OjWnIUGeRKGnLRzrPMYyQLC9ZMb1IPSiWA LdFS7GZeDmKAAjPIA6DsFtRPQkAPIdpj5GKAXhJFN9Dlk3XiXtDMIkWBEcBJfqVWCzDOQ7VND8NXWkRE ZuNY0GWzPgNGUwOVs2GkmpDKLoYPXsle4QNAOnGFF8 ZDMgNOIwNYSoSKTzSYkpRDIgKTG2GaI9VBJhBEEwXV1FWrLeYIjiBTXHJfa6UIwuW8x0QQM4Mo9UI2Tp x8PcWGNgGQSMEPnjSW7xeyNqGLNsEu6MQ0xASneoZMO4VTT7ZBm0SLAuAEvwBJFoYSQdWVR7AFC1EPO1 Dx2gIFSfQMJqIeG7IrzkKfUnPEL0AIRfQaC5BSs9Jb nsPVWkXfLrUY6RBk7NZkH5IAH6bKHdBo6QSCh3LQXNOoWhRV6IOOy= ID Date Data Source [id number] 12/28/2020 06:28:37 PM EDT [facility] Name Value Range Interpretation Code Description Data Kayley rce(s) Supporting Document(s) Progress Note [facility] KNTGJb7lPwSPCtGb20/ZMIbmHNQkc9XaOOjjDAl1FWigYIQeZ3JeOJY9uI4eGRM1YQcDYcScHgPuHOH5 lbm [file] nW+DPpHaALHD/+rv69UtLVYh+zoTKpa6/3XWFTY [file] dGE+DQogICAgICAgICAgICAgICAgICAgICAgICAgICAgICAgICAgICAgICAgICAgICAgICAgICAgICAg ICAgICAgICAgICAgICAgICAgICAgICAgICAgICAgICAgICAgICAgICAgICAgDQogICAgICAgICAgICAg ICAgICAgICAgICAgICAgICAgICAgICAgICAgICAgIC AgICAgICAgICAgICAgICAgICAgICAgICAgICAgICAgICAgICAgICAgICAgICAgICAgICAgICAgDQogIC AgICAgICAgICAgICAgICAgICAgICAgICAgICAgICAgICAgICAgICAgICAgICAgICAgICAgICAgICAgIC AgICAgICAgICAgICAgICAgICAgICAgICAgICAgICAg ICAgICAgDQogICAgICAgICAgICAgICAgICAgICAgICAgICAgICAgICAgICAgICAgICAgICAgICAgICAg ICAgICAgICAgICAgICAgICAgICAgICAgICAgICAgICAgICAgICAgICAgICAgICAgDQogICAgICAgICAg ICAgICAgICAgICAgICAgICAgICAgICAgICAgICAgIC AgICAgICAgICAgICAgICAgICAgICAgICAgICAgICAgICAgICAgICAgICAgICAgICAgICAgICAgICAgDQ ogICAgICAgICAgICAgICAgICAgICAgICAgICAgICAgICAgICAgICAgICAgICAgICAgICAgICAgICAgIC AgICAgICAgICAgICAgICAgICAgICAgICAgICAgICAg ICAgICAgICAgDQogICAgICAgICAgICAgICAgICAgICAgICAgICAgICAgICAgICAgICAgICAgICAgICAg ICAgICAgICAgICAgICAgICAgICAgICAgICAgICAgICAgICAgICAgICAgICAgICAgICAgDQogICAgICAg ICAgICAgICAgICAgICAgICAgICAgICAgICAgICAgIC AgICAgICAgICAgICAgICAgICAgICAgICAgICAgICAgICAgICAgICAgICAgICAgICAgICAgICAgICAgIC AgDQogICAgICAgICAgICAgICAgICAgICAgICAgICAgICAgICAgICAgICAgICAgICAgICAgICAgICAgIC AgICAgICAgICAgICAgICAgICAgICAgICAgICAgICAg ICAgICAgICAgICAgDQogICAgICAgICAgICAgICAgICAgICAgICAgICAgICAgICAgICAgICAgICAgICAg EBIyQFVnBCWePKEgPLPiBZVmHDQwITCqUYTjYFQaRNUrMEGwWFSaILCnOQEkYJQqRZNyAHLwLEf4J0uc YMCaJGUrXP8nWPc6Qm6+ZApEVzLeCVO1jcFcqQ8IQN 0mg8IpNYpcGAZay5IsZAw6UZ8QWSYrMBxdCQ0KTEfdak7DAEVcJKZieLLIz6rtGeOzWMZ8GDTsXdlgSM 1BAVMwU3clwjQeGNFyKJPIISiaIAKCQVadSTPVWTYhIYEjFaHcJkUkMLHbOISrMZWBWZK7QSNdPtCsMN AwIFIgMjEgMCBSIDIzIDAgUiAyNSAwIFIgMjcgMCBS LH8QPuUvV1XbzK88XEUfHMr+Zq8DUC9dr2MiPAk2BNAgCQ3eki4RASnRNhOxU4TkvsA0DQX5KSQxIk8S HNRaCRZjrUB5DmDmEAWPAoHpP9IdrP19LSJUKf8+ZZbbskLpUgvLCwZ1UDRhb0DzEYu3PB9XXJXnPEg7 bMKuESGzW5Yqe5HdHn84VWQoLtpeEandj5bctbIzSL FinBypEUawCTGhULFbJIUqDOXnPcAzSTLoTZdgFIHACSxCIeHlK1Wmi0QsMkI0DYKdTlExKAyyEQZxTl E0ZB05cVavQD4LKXXuDKZdER38QON1BTKwXj5RFp2RWxEiTI5agk8EPBrmZKAcRsoKAcl6NFekUQ2CyI FaL6DbpSZaz0yHVgZrV9EXEHCrIEHvQu5YWGXwMgHv VCShBCrtMH7xLSFaVNKBuImlbpY1AY9AUA9vvtKkCL0KBvIsCv3jRu1MZjEsG0SaG3ZgZAWzTRPWGLyd CB4NZVbpYO5rUU6Tx1SVtGKsrF5vjk2ZCRAbLYWdMrbxsf8CMpobT6E6gCtjIEInISOvQIQEOBfxQH9P ZQEsQTA7IPL6HQFrVAZSNeNxY45yCF0LD2Zyy43xIn Z7RJIaIcHyVVjkGO94hXngwhUdnWAdmKjuHA9EEa6+DQplbmRvYmoNCnhyZWYNCjAgNTgNCjAwMDAwMD FhYVWyXgN1ZvVvTn3TRTUxISIuJJZmPaGeXZAlPJRnKDesUMUjXHa1AIxhTMWdRZRlXB6TXnIzIOAyGV F5KiFlMRWqHYSyhk4FYYHjSBEoJDS0JfFhPCByDMMo QQvqJSFmUIQ8OhJ7UZDnRRNdKT4UCnCwUKFvHGE5RyZiLVGlXOXhmo6SKSRsBTXnUDH8EyQwERMiNDPb NIaqUOImKUX4ZiiyOOXdOWKaRM4UPdEuLOUpCLJ3JPBySNBiUIUlsf8LTKDlWNZlCHdnUIHyFRWrWXUe ZWwiZSUwEJNkYqd6JVDlZIJcIU6QDwLgHKNlVNF2GJ CcQLPaSIOibh2MVXLsYEEcBnL8XBKvQQYtIAKpBJtwNABlWQK3WLreRQRzNEHsGC0DWxUnRARwAZjdTX GbYBGzGGIbaf5ERWMeYIYxTHFmBXRaJCUlRSQbFFckAOOiOXIzWkZ4GSKaGRZzEF1JFyYcAZEdCaH4Ib ZsVSLwAHMnle7DOCFuMCTfIfe9VgBzLQSuFUFxQYti RATdSTKbCQj1QJEyCLRzIY1UUrWnLDVmYnN8AZTyQCZkIEWwsc5KZRBsSLHkJsH6IYXyOEVzEJQzECtg WQMmHNVmRexnSWDxESUgOA7UWeJuCJKcTkK1OKntAKRdJFTsyc4YPIYmRQPgDfcqDAKtKOGvWMWdGOdi CVVyBUO3CCL1FCJnQUMmZK8DAcMsHWLzEmY8JSBsBO CgVEZqlk1AICNzUADdTLFcNMFkTDIjIAYuMXcqGWNqDGR0YFsxHWShDVIpPN2IKvMbVUZfGbErGodrLD CoMJOkqi5RGZNsXLUdTuL6CYPnPRHaMBNlWFilVSOgIIT2WTUuFODzYLVxUX3DUgPnJQOhYka0UJFtMD OyAMUuda9GRJPoKGBzOfsdVXYaNUSvDXRbBBywSBUz EBO3WEF0IGHxREBfNR7GAwMsXHBxZyf3KWGrCAFiOGKrut6IHEZwYMW5BOwqSNCdHCNlELYfLKqtQLIg VImnOuUrNOXySFAsII1LOeLzRIAaMyC2RwfgFGErYRBxxl6VKECjFAO4QQzhKSEwKWJzBWQjHDsbTPMl YPjgBBfzRBIvYGHaEN9GSsEtSAHxQvSxHfPlKAOhZI Htzf1CLFAuEEE2TeAqQLHrAUGsGNGwVMniDSAkQYn3GpI3FUBdAYTrVW0OJlXoDKOgNof1BZgpLCYuNV Qpdv7XYFCdRQC5Uyx5ESNxYTKwQDGoMTfwMAXxMFz1EQT7KWBfDZIkYL4ULnAiNGHaFqowKOUtWWUeLX Fntk8CQHSwWGY8QFC7SRApTLWeOKQjBPudUEFzWZl3 UJQxDZPhCIWhDQ8DRsKvXEAqJmg8LRDdSOKmBAEfcj0FISUdPSS7UIZ7GfOaNUJhRMJpNHtjWIQaGGo1 XROzWUArFGAsVQ0WNxWtTEZuUQFiRqGhGWOsAEVgfh7ILOOkYHO1FTnbTESoWNQoDJRsKMgxYGQlZHev ZQKpKLBkDODjBC3OZfQmZILcLMDjQgSmOFFjWVXdtd 7DfWGveQeugd3RQXxZMv7GiBtgHLD9YLodCs7ugKK5VnHyLWLZWu7EykRmCGZgCFDLRWkpZIQkKHtgZD b6DyS0TwLnIQNzWASwYuWbUZP6J9L7NXO2HdE6FiZ1VUPyMyM4KNEuO6P8CkZnY3JdUWB3BXUySWj0Nu cyMzk+NG8pIVl+Rg5Fa2MnjeR8xjTzRKt2YiGrLy0GKFQTM0XWVw== ID Date Data Source [id number] 12/25/2020 01:17:24 PM EDT [facility] Name Value Range Interpretation Code Description Data Kayley rce(s) Supporting Document(s) Osmolality of Urine 249 mosm/kg 300-1000 L [facility] ID Date Data Source [id number] 12/25/2020 01:46:11 PM EDT [facility] Value Range Interpretation Code Description Data Kayley rce(s) Supporting Document(s) Potassium [Moles/volume] in Urine 22.7 mmol/L [facility] ID Date Data Source [id number] 12/25/2020 01:46:11 PM EDT [facility] Value Range Interpretation Code Description Data Kayley rce(s) Supporting Document(s) Sodium [Moles/volume] in Urine 35 mmol/L [facility] Confirmed ID Date Data Source [id number] 12/25/2020 01:46:11 PM EDT [facility] Value Range Interpretation Code Description Data Kayley rce(s) Supporting Document(s) Chloride [Moles/volume] in Urine 43 mmol/L [facility] Confirmed ID Date Data Source [id number] 12/25/2020 09:20:44 AM EDT [facility] Value Range Interpretation Code Description Data Kayley rce(s) Supporting Document(s) Leukocytes [#/volume] in Blood by Automated count 3.4 10*3/uL 4-10 L [facility] Erythrocytes [#/volume] in Blood by Automated count 3.53 10*6/uL 4.6- 6.1 L [facility] Hemoglobin [Mass/volume] in Blood 11.0 g/dL 13.5-18 L [facility] Hematocrit [Volume Fraction] of Blood by Automated count 31.4 % 4 1-53 L [facility] Erythrocyte mean corpuscular volume [Entitic volume] by Auto mated count 89.1 fL 80-96 [facility] Erythrocyte mean corpuscular hemoglobin [Entitic mass] by Automated count 31.2 pg 27-33 [facility] Erythrocyte mean corpuscular hemoglobin concentration [Mass/volume] by Automated count 35.0 g/dL 32.0-36.0 [facility] width [Ratio] by Automated count 13.8 % 11.5-14.5 [facility] Platelets [#/volume] in Blood by Automated count 246 10*3/uL 150-400 [facility] Differential cell count method - Blood [facility] Neutrophils/100 leukocytes in Blood by Automated count 61 % [facility] Lymphocytes/100 leukocytes in Blood by Automated count 19 % [facility] Monocytes/100 leukocytes in Blood by Automated count 15 % [facility] Eosinophils/100 leukocytes in Blood by Automated count 3 % [facility] Basophils/100 leukocytes in Blood by Automated count 2 % [facility] Neutrophils [#/volume] in Blood by Automated count 2.11 10*3/uL 1.8-7 .0 [facility] Lymphocytes [#/volume] in Blood by Automated count 0.65 10*3/uL 1.2-4 .0 L [facility] Monocytes [#/volume] in Blood by Automated count 0.51 10*3/uL 0-0.8 [facility] Eosinophils [#/volume] in Blood by Automated count 0.09 10*3/uL 0-0.5 [facility] Basophils [#/volume] in Blood by Automated count 0.07 10*3/uL 0-0.2 [facility] Nucleated erythrocytes/100 leukocytes [Ratio] in Blood by Automated count 0 /100{WBCs} 0-0 [facility] ID Date Data Source [id number] 12/25/2020 09:34:51 AM [facility] Value Range Interpretation Code Description Data Kayley rce(s) Supporting Document(s) Prothrombin time (PT) 13.5 s 11.6-14.0 [facility] INR in Platelet poor plasma by Coagulation assay 1.07 [facility] Routine intensity oral anticoagulation I NR is typically 2.0-3.0. Target INR must be clinically individualized. ID Date Data Source [id number] 12/25/2020 09:45:59 AM [facility] Value Range Interpretation Code Description Data Kayley rce(s) Supporting Document(s) Amylase [Enzymatic activity/volume] in Serum or Plasma 75 U/L 28- 103 [facility] ID Date Data Source [id number] 12/25/2020 09:45:59 AM EDT [facility] Name Value Range Interpretation Code Description Data Kayley rce(s) Supporting Document(s) Albumin [Mass/volume] in Serum or Plasma by Bromocresol green (BCG) dye binding method 4.5 g/dL 3.5-5.2 [facility] Bilirubin.total [Mass/volume] in Serum or Plasma 0.3 mg/dL <1.2 [facility] Calcium [Mass/volume] in Serum or Plasma 8.3 mg/dL 8.8-10.2 L [facility] Chloride [Moles/volume] in Serum or Plasma 89 mmol/L 98-107 L [facility] Creatinine [Mass/volume] in Serum or Plasma 0.73 mg/dL 0.70-1.20 [facility] Glucose [Mass/volume] in Serum or Plasma 117 mg/dL 70-140 [facility] Alkaline phosphatase [Enzymatic activity/volume] in Serum or Plasma 82 U/L 40-129 [facility] Potassium [Moles/volume] in Serum or Plasma 5.0 mmol/L 3.4-5.1 [facility] Protein [Mass/volume] in Serum or Plasma 6.9 g/dL 6.4-8.3 [facility] Sodium [Moles/volume] in Serum or Plasma 122 mmol/L 136-145 L [facility] Aspartate aminotransferase [Enzymatic activity/volume] in Serum or Plasma 34 U/L <40 [facility] Urea nitrogen [Mass/volume] in Serum or Plasma 10 mg/dL 8-23 [facility] Osmolality of Serum or Plasma by calculation 254 mosm/kg 275-300 L [facility] Creatinine/Urea nitrogen [Mass Ratio] in Serum or Plasma 14 [facility] Bicarbonate [Moles/volume] in Serum 24 mmol/L 22-29 [facility] Alanine aminotransferase [Enzymatic activity/volume] in Seru m or Plasma 23 U/L <41 [facility] Anion gap 3 in Serum or Plasma 9 mmol/L 8-15 [facility] Glomerular filtration rate/1.73 sq M pre dicted among non-blacks [Volume Rate/Area] in Serum or Plasma by Creatinine-based formula (MDRD) >6 0 [facility] Glomerular filtration rate/1.73 sq M pre dicted among blacks [Volume Rate/Area] in Serum or Plasma by Creatinine-based formula (MDRD) >60 [facility] ID Date Data Source [id number] 12/25/2020 02:03:30 PM EDT [facility] Name Value Range Interpretation Code Description Data Kayley rce(s) Supporting Document(s) Lipase [Enzymatic activity/volume] in Serum or Plasma 65 U/L 13-6 0 H [facility] ID Date Data Source [id number] 12/25/2020 03:41:51 PM EDT [facility] Name Value Range Interpretation Code Description Data Kayley rce(s) Supporting Document(s) Thyrotropin [Units/volume] in Serum or Plasma 1.030 u[IU]/mL 0.270-4. 200 [facility] ID Date Data Source [id number] 12/16/2020 03:53:57 PM EDT [facility] Name Value Range Interpretation Code Description Data Kayley rce(s) Supporting Document(s) Progress Note [facility] HIHHPz0eKlCUHtGa10/WYCpjACShx4TvACzjXPr8UYteXNIqW2ZdYEB5eX6uKCO7IXdSGxZePcPmOYN6 lbm [file] i/HE3PHYJM2laQxmhJNlgt9rWREou56l7swCcQolvCWYJzS9do7kFKF3LyaWaYZX3JENWFcb6kJE+татьяна [file] GSbC6LqsjlpKN/8HChO0WyKSjbO1Dn1FcUGv/b [file] XU5qODlsWFfxi0OmlfV8rzO3fTwDiNlR+vp customer development+uhD9ax [file] ICAgICAgICAgICAgICAgICAgICAgICAgICAgICAgICAgICAgICAgICAgICAgICAgICAgICAgICAgICAg ICAgICAgICAgICAgICAgICAgICAgICAgICAgICAgIC AgICAgDQogICAgICAgICAgICAgICAgICAgICAgICAgICAgICAgICAgICAgICAgICAgICAgICAgICAgIC AgICAgICAgICAgICAgICAgICAgICAgICAgICAgICAgICAgICAgICAgICAgICAgDQogICAgICAgICAgIC AgICAgICAgICAgICAgICAgICAgICAgICAgICAgICAg ICAgICAgICAgICAgICAgICAgICAgICAgICAgICAgICAgICAgICAgICAgICAgICAgICAgICAgICAgDQog ICAgICAgICAgICAgICAgICAgICAgICAgICAgICAgICAgICAgICAgICAgICAgICAgICAgICAgICAgICAg ICAgICAgICAgICAgICAgICAgICAgICAgICAgICAgIC AgICAgICAgDQogICAgICAgICAgICAgICAgICAgICAgICAgICAgICAgICAgICAgICAgICAgICAgICAgIC AgICAgICAgICAgICAgICAgICAgICAgICAgICAgICAgICAgICAgICAgICAgICAgICAgDQogICAgICAgIC AgICAgICAgICAgICAgICAgICAgICAgICAgICAgICAg ICAgICAgICAgICAgICAgICAgICAgICAgICAgICAgICAgICAgICAgICAgICAgICAgICAgICAgICAgICAg DQogICAgICAgICAgICAgICAgICAgICAgICAgICAgICAgICAgICAgICAgICAgICAgICAgICAgICAgICAg ICAgICAgICAgICAgICAgICAgICAgICAgICAgICAgIC AgICAgICAgICAgDQogICAgICAgICAgICAgICAgICAgICAgICAgICAgICAgICAgICAgICAgICAgICAgIC AgICAgICAgICAgICAgICAgICAgICAgICAgICAgICAgICAgICAgICAgICAgICAgICAgICAgDQogICAgIC AgICAgICAgICAgICAgICAgICAgICAgICAgICAgICAg ICAgICAgICAgICAgICAgICAgICAgICAgICAgICAgICAgICAgICAgICAgICAgICAgICAgICAgICAgICAg ICAgDQogICAgICAgICAgICAgICAgICAgICAgICAgICAgICAgICAgICAgICAgICAgICAgICAgICAgICAg ICAgICAgICAgICAgICAgICAgICAgICAgICAgICAgIC DgRDVwJLGeYQPvLJDfVXg4T7bgDTToAAUyZK2fRZe0Uz1+LIoLGhQfETL4meEdsO9ZJD8lg1JyZTtaLR Wnw6HyCTw9AX3ZOXHcNTibLE1MRPfsxe2JPKHvVBUslJNVw3zuKjBrKGP2GIWcZrheOG1KTDCpS6mqnj BbIDUgMCBSIDcgMCBSIDkgMCBSIDExIDAgUiAxMyAw XWJgFQRzYKCODCR0MGIeUmWgFHXyNJYbHmVfINZJCSPtJTSbVdBxJDEwETSzKR3NYSFoS423gzEcFUGU Cj4+XGbyctGcXvyPMnZzPUKih6UmNYu5IT7BSCLqXwojg1RtYLNsLBNBYRslBI8UZBS8UDY1RTKvRf5B XUMwM315vmVfIO6PBs9QQkNvMQ7ssi2APNIaRESjBw jBThj6LNvnGA5LaBLnNDxSvk8yzhSrrwCRj6QhofFyqWYTxHPlz2LzUUQAAIZdcJNzTFOHXXFuySIeFP 18EvBvYuJgJGq1NXRmRC9tFFzvTS8CDNV1OWxgCHAzTQMuX5oQJjJwDJKdTcEotDfkIL8KFeIjA1Cuwq FeuFH8AePmZFVQHt9+BBymrnUjZxzYHjY6WBIad7Oh RQn7GT4CSEWjJNdqLI4QVVNekP7eNVxkWS3VMzF3FNVdHLCMNpZlC79qmEKtRWn0W0OdAeTzWVUuTltt ZXMgPDwvTmFtZXMgWyBdDQogID4+ID4+NIkmDL0ZNAqrzaOqRDScAz4MAZYsSURlSD1dAWXxTZLvV7O8 xKcxCGPFHwTbV1lizxehHW4lCCBrC119pDgaocPjAP JkVDSpCw5BWOQnXXQ1UDMyqVKtQZQqYCGJLBuxTA0ZyVXrKHG6wD0zBOjcCBUwZOXbE8pRFlQvpVyyKH 51bGwgbnVsbCBdDQo+Jm6JFN6fw6KsZJs3rqWyWZpxAOC7VJunZKAlBRAvPMSzGMA6RFV4FPSJPvCdOF UgKYCmHQvyMOInNECptt7ITKXmVZC9RxOaHPAxBANf EFScWIbuXSDwZMb7PmerGTMfEKVjXJ3WIeKdDSCzOKIyRLuzJHJrVAStpw6EMGDrZBQaCKBgPYSjXOHj VCWpAKeiMWMsTUC3THE1VADpVQOtUZ1PXtZvTZMsNDzrCULjJZPrMLLxik1HHZSpVOCkCMWaQNVpAPQy WIZcDKlqBMZwFQTvTNd9XGAmOXWnYM7LCqSgHZBmYZ V4XFNhCKKfNPNzys0EIFTnBSZsTwz1JUQrULLcOUYvXBytRMFkWUV7SPc6VPNvQWJpOR5UHbHcEYFxSR DcKCywHKZzZPEjlt9QSJDpXJHtSjP8CzGxLQYkSQXsRQgvTYRpMFI3YNP6LZSfPEUbHO0ZQfUgEQOmAX thMqHqLBHeUXBuoq3RQMAvMFTdMZFaDzIeUXZpAXXp XQksVUEmQBGaUbB6OKNfZMYxGY8BHcOuGVCtQxY3QfQeVRAoOMBkgh4NCIFuBNLjAlnmZnNvYHYvNXTc XHafTFTeTOT4PtG2CMHfAXSiOK1JTnDsGJCwZoU6LvEyBFEbWLXlgm0UOXSaREYsHZp1ZLUpCQKwRKNh UXyeHABgRBIfKDJmRPXaLDIyGA2YWpXhBCQwXgI9Ul GjCARqXISxaq6RFMNlBAKwYaD3SPGuHMNzIBVcBGbbPNEsAPR9ZYQuXZUnWZEiMN1MWaTzVWNpCeOxSv jsBFDuKLHyzo6IDTLhOECmNKLkUPKzNCPmMNTlRWecLZWhFQR3OUw5NKVhSTQxMP2TTkYoWTWlDiW5JN SnYBOzRHLmlz2XQJUlBYUrOAb3IWRoVNUyAADzEDtr YKIzCEW9UrA5EGOlPRCoCJ0SXrJtSQJyWwoeBpCiAAWaCQYhuu5MXTSrSOV6XoR8TYLvEICcHPWfDXjh ATFtUVV7QxO8OSXmDHFcFI0AXkUqNMSsUej4RKFaYNOpYFRpmm5AHSHlXOR2KZMqEAQpSHVeGVYrXFzv EGHkSHX8FdJ9OCIdUUIpUI2DJbChNMBoIer7GHIlGV PwYVNrln3DXXEkHAN1AGE4KsPpESVcFUFpCXufMNYeCEk2FGS5UDYaNVOsAJ7BDqLfZMZvRiFeYcZfEC TdOHDrrs7TOKRoWQG3QNUmOkPjDKRkVRAyPOujRTHnUPc8DOApXBPyWCErNO0RMcLrJNJiGkK1DWXiWD TxINWsuc4CFOGsBAJ5UuQlGDHuFHWvQAQgMKneGBFi CGk8WYw6MICiHWEqJV3FHkTvZJXgXollCxFeBCEgGRJsrs0YQJRkFLI4YpQvDSTdZIAaLBSzCFeeSLKi LMe4ZMr5HOMjVZDdUA3QNvEcMPPlTtz8UXDuIUGiFIUelj7EWEZuLKD1BAM0CLDoVURcPQLdJQmwUFTw XZp5LHXpHFSpBDJgCM0XUrGlACHqZza1GXElIGIjWO Drfl4PjNHurFfmuh9GSTcZDh7UbXxxBQJ5ZLkzIa1snRS8QDOyOQVHHk3UqqPdNMNlNKSTXEkpZNJiSD KyLwJsIzc7Ilq7BOSgUAR4ZKkvCDCaDVIsBrjvLnQ7JsQ6LFA5M2XnJelzCKfxEDImRFL6ZfPkRkTrEN U2KUM3Niq+RM8oFZk+Ci0Oj1TichC1qaYjGZe5RXfpML7FGRUDB5CGEv== ID Date Data Source [id number] 12/16/2020 08:44:47 AM EDT [facility] Name Value Range Interpretation Code Description Data Kayley rce(s) Supporting Document(s) Leukocytes [#/volume] in Blood by Automated count 4.5 10*3/uL 4-10 [facility] Erythrocytes [#/volume] in Blood by Automated count 3.79 10*6/uL 4.6- 6.1 L [facility] Hemoglobin [Mass/volume] in Blood 11.7 g/dL 13.5-18 L [facility] Hematocrit [Volume Fraction] of Blood by Automated count 34.4 % 4 1-53 L [facility] Erythrocyte mean corpuscular volume [Entitic volume] by Auto mated count 90.7 fL 80-96 [facility] Erythrocyte mean corpuscular hemoglobin [Entitic mass] by Automated count 30.8 pg 27-33 [facility] Erythrocyte mean corpuscular hemoglobin concentration [Mass/volume] by Automated count 34.0 g/dL 32.0-36.0 [facility] Erythrocyte distribution width [Ratio] by Automated count 14.0 % 11.5-14.5 [facility] Platelets [#/volume] in Blood by Automated count 247 10*3/uL 150-400 [facility] Differential cell count method - Blood [facility] Neutrophils/100 leukocytes in Blood by Automated count 59 % [facility] Lymphocytes/100 leukocytes in Blood by Automated count 25 % [facility] Monocytes/100 leukocytes in Blood by Automated count 14 % [facility] Eosinophils/100 leukocytes in Blood by Automated count 1 % [facility] Basophils/100 leukocytes in Blood by Automated count 1 % [facility] Neutrophils [#/volume] in Blood by Automated count 2.62 10*3/uL 1.8-7 .0 [facility] Lymphocytes [#/volume] in Blood by Automated count 1.14 10*3/uL 1.2-4 .0 L [facility] Monocytes [#/volume] in Blood by Automated count 0.62 10*3/uL 0-0.8 [facility] Eosinophils [#/volume] in Blood by Automated count 0.06 10*3/uL 0-0.5 [facility] Basophils [#/volume] in Blood by Automated count 0.04 10*3/uL 0-0.2 [facility] Nucleated erythrocytes/100 leukocytes [Ratio] in Blood by Automated count 0 /100{WBCs} 0-0 [facility] ID Date Data Source [id number] 12/16/2020 09:14:34 AM EDT [facility] Name Value Range Interpretation Code Description Data Kayley rce(s) Supporting Document(s) Prothrombin time (PT) 13.0 s 11.6-14.0 [facility] INR in Platelet poor plasma by Coagulation assay 1.02 [facility] Routine intensity oral anticoagulation I NR is typically 2.0-3.0. Target INR must be clinically individualized. ID Date Data Source [id number] 12/16/2020 09:17:56 AM EDT [facility] Name Value Range Interpretation Code Description Data Kayley rce(s) Supporting Document(s) Albumin [Mass/volume] in Serum or Plasma by Bromocresol green (BCG) dye binding method 4.6 g/dL 3.5-5.2 [facility] Bil[facility].total [Mass/volume] in Serum or Plasma 0.5 mg/dL <1.2 [facility] Calcium [Mass/volume] in Serum or Plasma 9.1 mg/dL 8.8-10.2 [facility] Chloride [Moles/volume] in Serum or Plasma 90 mmol/L 98-107 L [facility] Creatinine [Mass/volume] in Serum or Plasma 0.89 mg/dL 0.70-1.20 [facility] Glucose [Mass/volume] in Serum or Plasma 138 mg/dL 70-140 [facility] Alkaline phosphatase [Enzymatic activity/volume] in Serum or Plasma 80 U/L 40-129 [facility] Potassium [Moles/volume] in Serum or Plasma 5.0 mmol/L 3.4-5.1 [facility] Protein [Mass/volume] in Serum or Plasma 6.9 g/dL 6.4-8.3 [facility] Sodium [Moles/volume] in Serum or Plasma 126 mmol/L 136-145 L [facility] Aspartate aminotransferase [Enzymatic activity/volume] in Serum or Plasma 27 U/L <40 [facility] Urea nitrogen [Mass/volume] in Serum or Plasma 15 mg/dL 8-23 [facility] Osmolality of Serum or Plasma by calculation 264 mosm/kg 275-300 L [facility] Creatinine/Urea nitrogen [Mass Ratio] in Serum or Plasma 16 [facility] Bicarbonate [Moles/volume] in Serum 25 mmol/L 22-29 [facility] Alanine aminotransferase [Enzymatic activity/volume] in Seru m or Plasma 20 U/L <41 [facility] Anion gap 3 in Serum or Plasma 11 mmol/L 8-15 [facility] Glomerular filtration rate/1.73 sq M pre dicted among non-blacks [Volume Rate/Area] in Serum or Plasma by Creatinine-based formula (MDRD) 86 mL/min/1.73m2 >60 [facility] Glomerular filtration rate/1.73 sq M pre dicted among blacks [Volume Rate/Area] in Serum or Plasma by Creatinine-based formula (MDRD) >60 [facility] ID Date Data Source [id number] 12/09/2020 02:15:00 PM EDT [facility] ([facility] ) Name Value Range Interpretation Code Description Data Kayley rce(s) Supporting Document(s) Gram Stain Laboratory test result Normal (applies to non-n umeric results) [facility] ([facility]) NO CELLS SEEN NO ORGANISMS SEEN Nasal And Sinus Culture Laboratory test result N ormal (applies to non-numeric results) [facility] ([facility]) <content>FULL REPORT IN LAB NOTES ([facility] nd [facility]).</content>
<content>NO NORMAL TIGIST ISOLATED</content>
<content></content>
<content>ORGANISM 1: STENOTROPHOMONAS MALTOPHILIA</content>
<content></content>
<content>QUANTITY OF GROWTH MODERATE</content>
<content></content>
<content></content>
<content> ORGANISM 1: STENOTROPHOMONAS MALTOPHILIA</content>
<content></content>
<content>STENOTROPHOMONAS MALTOPHILIA: REACTION</content>
<content>TRIMETHOPRIM/SULFAMETHOXAZOLE IV 160mg TMP & 800mg SMXq6h <=20 S</content>
<content>TRIMETHOPRIM/SULFAMETHOXAZOLE PO Bactrim DS Bid <=20 S</content>
<content>LEVOFLOXACIN IV 500mg qd 1 S</content>
<content>LEVOFLOXACIN PO 250mg qd 1 S</content>
<content>LEVOFLOXACIN PO 500mg qd 1 S</content>
<content></content> ID Date Data Source [id number] 12/09/2020 02:15:00 PM EDT [facility] ([facility]) Name Value Range Interpretation Code Description Data Kayley rce(s) Supporting Document(s) Bacteria identified in Nose by Aer[employer] culture Laboratory test re sult Normal (applies to non-numeric results) [facility] ([facility] ) NO CELLS SEEN NO ORGANISMS SEEN ID Date Data Source [id number] 12/05/2020 09:21:09 AM EDT [facility] Name Value Range Interpretation Code Description Data Kayley rce(s) Supporting Document(s) Progress Note [facility] POJLYm5cJjVMJtHt32/ITHgxXYYqu6AhAHgeEFu4MJalVIToN6EtNCF0jY5pCDZ4YVvPTiEpVaXpSAI5 lbm [file] AgICAgICAgICAgICAgICAgICAgICAgICAgICAgICAg WZCpQNUwRUJkSHAyLKAgIVFvUPGbPZFxCO3YIHYhKLNcKVZoVJRhFCIfQFQnUYLmQGLfDDYhFBYeYRWx ICAgICAgICAgICAgICAgICAgICAgICAgICAgICAgICAgICAgICAgICAgICAgICAgICAgICAgICAgICAg FZYgDSBgYO4NFLWvMFXaOGVeIENtTGQhONJaCPKkGR AgICAgICAgICAgICAgICAgICAgICAgICAgICAgICAgICAgICAgICAgICAgICAgICAgICAgICAgICAgIC UeSZAqJKJtHPDgOBXtPYErXF7JCAYgODMaECRsFTDvAIZtMSCnGDWfRYAjOQOwYKBpMLFsLPQbGOWiIR AgICAgICAgICAgICAgICAgICAgICAgICAgICAgICAg VSChQNQsSOVxYWXdHVYmULKfDLKgUFBbQGXmCV6SXFThDYKwEQVmGARrJRKbHUYiFOMcDVGuFDQvQRYf ICAgICAgICAgICAgICAgICAgICAgICAgICAgICAgICAgICAgICAgICAgICAgICAgICAgICAgICAgICAg KLIqNJPsFRGvAJ8KEHJsPBLvFBScCGAsFAIhUUUhGI AgICAgICAgICAgICAgICAgICAgICAgICAgICAgICAgICAgICAgICAgICAgICAgICAgICAgICAgICAgIC GaLPSqOQWlXOIcDJKuLWPtFQCuWZ0GQJZsKKBnPVXxRTLeIPQwZVGmQKXgFYKwFRKqKXSqDXHgUQRdBQ AgICAgICAgICAgICAgICAgICAgICAgICAgICAgICAg YLDzPVCaRVKzAQXeSFOyPBDkRURaDHHiCCNtATYoWO7AEDFsDZQoKBToQYMyKJHmWPQwCZEjRNGyLMIm ICAgICAgICAgICAgICAgICAgICAgICAgICAgICAgICAgICAgICAgICAgICAgICAgICAgICAgICAgICAg WPDqLRJhVGCrWQDzLW8QCZLvYHUiBRVtKNViDGNrYQ AgICAgICAgICAgICAgICAgICAgICAgICAgICAgICAgICAgICAgICAgICAgICAgICAgICAgICAgICAgIC DuLRXyQQBxKHYqYPOxKSPqSKBiWDZiQX4NGUMkQLQhBZBxYUAtVZUmGQHfVFIvCRAwVIShPPPnXYSnAM AgICAgICAgICAgICAgICAgICAgICAgICAgICAgICAg GIVmRNSvUOTzKNHmXYOxDNMtMZAzQYXnZVHjIMSfFPPhYD6UPT53rQUvm7R0KLLvIU8rzcn/Nr4FURyp qgAjiEInAG1TQoTkVT2ugn7EUrTrYR2nzp6HDLbTXhMqQ1K8bQQgJGVpSBPBCcNwZ89gPUtuHv15KVcm KDZaQrWqMSv3Vv1QEzQsW0sfNFMoRfL2YKPnWsT3HB YrQhU4YLBtSuQfIITsBQKnXBKxLUFVHMF7EMAaZnBzVPksOV0Qo8JxoTK9TGt+Zm6IHN7ef6EpKPm9IA YoZA5zfz9QQZvNNwLkB1FhzbN9CXWlLIJoFs0BFYItSYWrpBN8XAGlWUTXPzQyM4JkrF03PHNEHv6+DQ kadzGcZddHFeIgMEFjk1RaDKr1YH2CAIWcEBk8jDJk PDMkK3Hcr5LaWd58CEDeJiuuTtkrj7zcwdSqKVUgbDpnNTekZRRnYHGaPA4tDq4lANFvERP1SfBjOJQH UM1GYQIgOOGsvDNhJSUrYZVCMY2UYFecJJL1GIOedmQfsRYuQKyhDO5YHWDiksNgUQLxKXLQSUa+Pg0K OI6rq0TjESi3IsSqLJ5wkt8LTXkKIlWoA4F6sTEwE4 J4LXmpCj2TKCFiRPDyIrzdCZINAZbhEI8PWG7girB1JZ4QwDJcFJZvTBNqxPMpJZx6Z12lfJDvJVnsMF 0KICA+Pallavi+Ro5IBOBlFBYlXVFoTzMuCHWIFtXyN4DgB3XJu1HbR6RrGM66xUmtihEdGAleXN6BPN1xJE HfFVYFGK3BlPGoyE4vklV8VKXqTOFPCvXvK39ksJVb DJJcOMY4RLHfVi0TKNNiP5ObilYcnHxkjrRkAOTjHPQOTW8RIVycsxWklPQdsLcnZR14zBgoTW6YMq5R ObJcIU0oxv9SrVSfNh9NFZB5Ii7KJQDhODAsBXNqROT1DVKvDsYyMCqtBGOnYXMtPTQ9OCDoJIBeAW3Y JdBeGMEuLuV6TCXpSHAeJYMznj1CQBOfVJW4HvcrMG MlNUSfXDFlRZklXGRvTTMmFZX8DJObFYTrSA9NXxVfKJLaSAJdDXmiECFiIVYrhx0CZEUxAMCkTXV7Dk AvDXWbKRTuQDphYFXfZFC9PPl9DVNoYGRaQW1DUaSeTWMuFLehWMGsWNXrYABtfc7FMOQnLLKxZQX2Km CiVGDuJUGhPWciPLDySEPgMgCtOMQtHPFaFV6RGlNc OQUpYHTsAFMjMWTvOALqlf7MPPOxKMPsQyE7KqAbMWSdREUzLFvpOYSeTPP4ATIlVSZvKPSgHM5KDjHv JBQoFAdtNVutIJLzVQRton4WLZGoATXmZEeeTCSzWJFnZXHdMWbnAVHkORX6KKN8VCFlCNLeJD7AQxYo CCHgYIo6MLGjQJNsPWWytx1MIZLiACCgLTD8DzLaMS TjLMGxIEmoWGCkKRTzKvg3QWKaTPNwNY2RBgZeWNTtApXnAfQxOCKaFFVmog8PNAMoSLXvLSZsYdPwZI NwMJJzQLrrMUZuSEXuGbC0MECjJNKsKL4YUhGuUUWzIJP9HYYnSLRuZJGcjd2WJEXjPWD8AkAwDcOyIV AiKQPmJFtyRGKqWAHiLlGqAOTqGRNuZE0JOmWfINJu RKOzXERhSNSlFGMnkk9STDHdCJN2CpQhRKCrXAIlLGJfELwtKEWjDQL3RErnLCKpCMCuIA2YSmBzLGHv HLU2MbDsBJRzFDQimd8OGTGoRCV0SKynNHTlYVIgREPvTZvxWGXyCFT9UieoQHMkHXEjDW7CJtJjMXQi GbFoJNUkZOAeIIEcpo2QYSZpTKB9WDAkCaQnJHDmAK ToARafLCGcMTAgBLLwQYDsHAGdIE8XOtDyEDXkKxC2VUuyKDQuPPFdjh0AINEaFVU6IXD2CwMmZPHeCW GrWCcgXFZpERXuUdKgBMBfPNDeKI9YHhRtBYDoPlQ9URxfCFFrHPZogf8NRPOlHIZ9BtI3MJXsCYJeQA QbEHqrLZCbSSDfTLR1DBJhYFWfWK6KByElFLEgHdU5 BWJiDAPqZZFxxq2CAMErUYA1GKL0QBErGPJhBBQdAFp5azAmqMUmCFm4ZR4NX4HqzzYzTPXDHh7Tt441 GLLxCZVmGe5TG5vgZs9eMZIoCBVVNe4HCDf2HjZxBMV9IXBiFuy3A5JxZPz6KkB4CnipDZW3EgM7OKU+ YAfsYpBwXcdgUFS7ERblZnFkFHO0Dfn4Z4GnIMp8TZ y6QF6eVXUPWg0+SNywgJQchDqkJFUKAoF9KuO5RXdvHVFQRy3Y ID Date Data Source [id number] 12/04/2020 11:20:11 AM EDT [facility] Name Value Range Interpretation Code Description Data Kayley rce(s) Supporting Document(s) Progress Note [facility] PTPIPk5fCrMXQoKz17/GBKixSXRdj0WzOMlgDDa6UMzdHMRlD3RzFGX6rL1nRLA1CUfGUfBvRpIjKKPl lbm [file] VkKRRyCzB3QPlxPgE+TD0tJGg+Oo4Qm5OnosT0hnIuVUwiWPG2UC9FRISDF6BXXd== ID Date Data Source [id number] 12/08/2020 10:14:00 AM [facility] Hematopathology Report See Addendum Belkrissy wName: OLSON ED ShadiAustinMRN: [id number] Number: [id number] Date: 12/04/2020 10:30Received Date: 12/04/2020 11:40Physician(s): ISAI BLAIR MBBS M KVNG COLLAZOASKANOLAN PAREDESSpecimen(s) ReceivedA: Bone Marrow Aspirate, LPIC; RECEIVED 1 CLOT AND 8 ASP SMEARSB: Bone Marrow Biopsy, LPIC; RECEIVED 1 BIOPSY AND 8 TOUCH PREPSC: Blood; RECEIVED 4 PB SMEARSD: Bone Marrow, Flow Cytometry; RECEIVED 1 GREEN TOP BM (2 EXTRA EDTA BMSENT TO MOLECULAR)Clinical HistoryNK T- cell lymphoma.TEST REQUESTED/PERFORMED: Bone Marrow and Flow Cytometry Analysis DiagnosisNormocellular marrow with no definitive evidence of involvement by thepreviously diagnosed NK/T cell lymphoma. T-cell PCR is pending.Jose Manuel Michel M.D.;Resident PathologistElectronically Signed By FIDE VU M.D. Attending Pathologist 110:14:01The attending pathologist named above attests that he/she has personallyreviewed the relevant preparation(s) for the specimen(s) and rendered thefinal diagnosis. Addendum 12/12/2020 Cytogenetics report [id number] shows that chromosome analysis revealed anormal male chromosome complement in all cells analyzed. The diagnosis isunchanged. Addendum Electronically Signed By: Raysa Aranda MD, PhD 12/12/2020 09:19 Addendum 12/17/2020 Molecular Diagnostics Report [id number] shows the following: There is anevidence of T-cell gene rearrangement. Since T-cell PCR was additionallyperformed on the diagnostic tissue and was negative, this finding mostlikely represents reactive clonal process. Addendum Electronically Signed By: FIDE VU M.D. 12/17/2020 14:43Amendments for Addendum (12/10/2020)Amended: 12/17/2020 by Deysi Mann: Diagnosis Change Clarification is bolded.Previous Signout Date: 12/10/2020mended: 12/17/2020 by Deysi Mann: Diagnosis Change highly suspicious for minimual involvement by previously diagnosedNK/T cell lymphoma has been replaced with Since T-cell PCR was done ondiagnostic tissue and it was negative, this finding most likely representsreactive clonal process.Previous Signout Date: 12/17/2020 Gross DescriptionThe specimen is r eceived in two parts.Part A is received in formalin labeled with the patient's name "Soraya" and "BMASPLPIC". It consists of a 2.0 x 1.1 x 0.4 cmaggregate of brown-red blood clot. Totally submitted in one cassette(s). Part B is received in formalin labeled with the patient's name "Soraya" and "BMBXLPIC". It consists of a 1.5 cm in length and 0.3in diameter red cylindrical fragment of bone. Totally submitted in onecassette following decalcification.LONI/sadaf ProceduresBone Marrow Date Ordered:12/04/2020 Status: Signed Out12/05/2020 InterpretationPERIPHERAL BLOOD: CBC performed at [facility] ([id number]),[address] [place] [address] on 12/04/20.WBC 4.4 K/uLRBC *3.95 M/uLHgb *12.3 g/dLHct *35.4 %MCV 89.6 fLMCH 31.1 pgMCHC 34.7 g/dLRDW 14.1 %Platelets 258 K/uL The erythrocytes appear decreased in number and are overall normochromicand normocytic. Anisocytosis is mild. Poikilocytosis is mild. Polychromasia is not increased. Nucleated red cells are not seen. Rouleau formation is not increased. The platelets appear normal in number.The leukocytes appear normal in number. Differential Count (200 cells): 3.5 % N. Band Forms65.5 % Neutrophils 0.5 % Eosinophils 1.5 % Azyyimncn74.0 % Lymphocytes 8.0 % Monocytes --------100.0 % Qualitative leukocytic changes: Some large granular lymphocytes arenoted. BONE MARROW ASPIRATE: Cellularity appears normal as judged by particles on aspirate films. Differential Count (500 cells):36.8 % Erythroid Precursors 0.6 % Blasts 2.2 % Promyelocytes 7.2 % N. Wopgikqvvc81.8 % N. Metamyelocytes and Band Forms21.0 % Zachary trophils 2.8 % Eosinophils and Precursors 0.2 % Basophils and Precursors 4.6 % Lymphocytes 0.4 % Monocytes 1.4 % Plasma Cells --------100.0 % Megakaryocytes appear normal with normal morphology.Erythroid maturation appears normoblastic.Myeloid maturation appears felt checker and complete.Macrophages are unremarkable. MARROW BIOPSY: Biopsy sections show normocellular marrow with normal M/E ratio.Megakaryocytes are normal. No well-defined lymphoid aggregates are seen.Bony trabeculae are unremarkable. Touch imprint slides show good cellular fallout with trilineagehematopoiesis. CLOT ASPIRATE:Sections of bone marrow aspirate show normocellular marrow with nolymphoid aggregates.SPECIAL STAINS: CD56 immunostain shows just a rare scattered positivecells. MORPHOLOGY SUMMARY: Normocellular marrow with 0.6% blasts, low normal M/Eratio (1.5/1), and normal number of megakaryocytes. No lymphoidaggregates are seen. Peripheral Blood: Normocytic anemia. Procedure Electronically Signed By:FIDE VU M.D.12/08/2020 Flow Cytometry Date Ordered:12/04/2020 Status: Signed Out12/05/2020 InterpretationLymphoid Panel: Whitney Ward [id number] following markers were assayed: CD45 (gate), CD2, CD3, CD4, CD5, CD7,CD8, CD10, CD19, CD20,CD33, CD34, CD38, CD56, CD57, CD64, CD117, CD123, HLA- DR, Gentry, andLambda.# events: [id number]: 99%Flow Cytometry Differential (CD45/SSC)Lymphocyte [place]: 13%CD45 dim [place]: 1%Monocyte [place]: 1%Granulocyte [place]: 75%Nucleated/Erythroid [place]: 6%The lymphocyte gate showsB-cells (CD19): 3%T-cells (CD3): 78%NK-cells (CD3-/CD56+): 17%Gentry/Lambda Ratio: 2.5CD4/CD8 Ratio: 2.0Results: (expressed as % of lymphocyte gate)T-cell Markers: CD2 = 87, CD3 = 78, CD3/CD4 = 46, CD3/CD8 = 22, CD5 = 78,CD7 = 90, CD3/57 = 20B-cell markers: Gentry = 2, Lambda = 1, CD19 = 3, CD20 = 7, CD19/10 = 1,CD19/CD5 = 0,CD38/CD20 = 5Light chain as % of B-Cells: CD19/Gentry = 53, CD19/Lambda = 20CD19/CD5/Gentry = 1, CD19/CD5/Lambda = 0CD19/CD10/Gentry = 9, CD19/CD10/Lambda = 4NK cell Markers: CD56 = 29, CD57 = 29Other Markers: CD10 = 1, CD38 = 72Results: (expressed as % of CD45 dim gate)T-cell Markers: CD2 = 1, CD3 = 1, CD3/CD4 = 1, CD3/CD8 = 0, CD5 = 0, CD7 =4, CD3/57 = 0B-cell markers: Gentry = 1, Lambda = 0, CD19 = 16, CD20 = 4, CD19/10 = 14,CD19/CD5 = 0,CD38/CD20 = 4Light chain as % of B-Cells: CD19/Gentry = 3, CD19/Lambda = 3CD19/CD10/Gentry = 0, CD19/CD10/Lambda = 0NK cell Markers: CD56 = 0, CD57 = 0Basophil Markers: CD123 (HLA-DR-) = 1Other Markers: CD10 = 19, CD38 = 99, CD33 = 57, CD34 = 42, CD64 = 8, CD117= 31, CD123 = 9,HLA-DR = 82Results-CommentsLymphocytes consist predominantly of T cells with normal expression of panT-cell markers and a normal CD4/CD8 ratio, normal proportions of NK andcytotoxic T cells, and polyclonal B cell.CD34+ blasts comprise fewer than 1% of cells studied. Blasts, monocytes,and granulocytes show no definitive immunophenotypic aberrancies.Procedure Electronically Signed By:FIDE VU M.D.12/08/2020 This report may include one or more immuno histochemical stain/fluorochromeconjugated monoclonal antibody results that use analyte specific reagents.All positive and negative controls have been reviewed by the attendingpathologist and are satisfactory. The tests were developed and theirperformance characteristics determined by [facility] Pathology department.They have not been cleared or approved by the US Food and DrugAdministration. The FDA has determined that such clearance or approval isnot necessary. Name Value Range Interpretation Code Description Data Kayley rce(s) Supporting Document(s) ID Date Data Source [id number] 12/04/2020 10:29:12 AM [facility] Name Value Range Interpretation Code Description Data Kayley rce(s) Supporting Document(s) Leukocytes [#/volume] in Blood by Automated count 4.4 10*3/uL 4-10 [facility] Erythrocytes [#/volume] in Blood by Automated count 3.95 10*6/uL 4.6- 6.1 L [facility] Hemoglobin [Mass/volume] in Blood 12.3 g/dL 13.5-18 L [facility] Hematocrit [Volume Fraction] of Blood by Automated count 35.4 % 4 1-53 L [facility] Erythrocyte mean corpuscular volume [Entitic volume] by Auto mated count 89.6 fL 80-96 [facility] Erythrocyte mean corpuscular hemoglobin [Entitic mass] by Automated count 31.1 pg 27-33 [facility] Erythrocyte mean corpuscular hemoglobin concentration [Mass/volume] by Automated count 34.7 g/dL 32.0-36.0 [facility] distribution width [Ratio] by Automated count 14.1 % 11.5-14.5 [facility] Platelets [#/volume] in Blood by Automated count 258 10*3/uL 150-400 [facility] Differential cell count method - Blood [facility] Neutrophils/100 leukocytes in Blood by Automated count 65 % [facility] Lymphocytes/100 leukocytes in Blood by Automated count 20 % [facility] Monocytes/100 leukocytes in Blood by Automated count 13 % [facility] Eosinophils/100 leukocytes in Blood by Automated count 1 % [facility] Basophils/100 leukocytes in Blood by Automated count 1 % [facility] Neutrophils [#/volume] in Blood by Automated count 2.89 10*3/uL 1.8-7 .0 [facility] Lymphocytes [#/volume] in Blood by Automated count 0.90 10*3/uL 1.2-4 .0 L [facility] Monocytes [#/volume] in Blood by Automated count 0.58 10*3/uL 0-0.8 [facility] Eosinophils [#/volume] in Blood by Automated count 0.03 10*3/uL 0-0.5 [facility] Basophils [#/volume] in Blood by Automated count 0.03 10*3/uL 0-0.2 [facility] Nucleated erythrocytes/100 leukocytes [Ratio] in Blood by Automated count 0 /100{WBCs} 0-0 [facility] ID Date Data Source [id number] 12/04/2020 11:04:15 AM EDT [facility] Name Value Range Interpretation Code Description Data Kayley rce(s) Supporting Document(s) Albumin [Mass/volume] in Serum or Plasma by Bromocresol green (BCG) dye binding method 4.7 g/dL 3.5-5.2 [facility] al Bilirubin.total [Mass/volume] in Serum or Plasma 0.5 mg/dL <1.2 [facility] Calcium [Mass/volume] in Serum or Plasma 9.2 mg/dL 8.8-10.2 [facility] Chloride [Moles/volume] in Serum or Plasma 93 mmol/L 98-107 L [facility] Creatinine [Mass/volume] in Serum or Plasma 0.86 mg/dL 0.70-1.20 [facility] Glucose [Mass/volume] in Serum or Plasma 139 mg/dL 70-140 [facility] Alkaline phosphatase [Enzymatic activity/volume] in Serum or Plasma 80 U/L 40-129 [facility] Potassium [Moles/volume] in Serum or Plasma 4.7 mmol/L 3.4-5.1 [facility] Protein [Mass/volume] in Serum or Plasma 7.4 g/dL 6.4-8.3 [facility] Sodium [Moles/volume] in Serum or Plasma 130 mmol/L 136-145 L [facility] Aspartate aminotransferase [Enzymatic activity/volume] in Serum or Plasma 30 U/L <40 [facility] Urea nitrogen [Mass/volume] in Serum or Plasma 14 mg/dL 8-23 [facility] Osmolality of Serum or Plasma by calculation 273 mosm/kg 275-300 L [facility] Creatinine/Urea nitrogen [Mass Ratio] in Serum or Plasma 16 [facility] Bicarbonate [Moles/volume] in Serum 26 mmol/L 22-29 [facility] Alanine aminotransferase [Enzymatic activity/volume] in Seru m or Plasma 25 U/L <41 [facility] Anion gap 3 in Serum or Plasma 11 mmol/L 8-15 [facility] Glomerular filtration rate/1.73 sq M pre dicted among non-blacks [Volume Rate/Area] in Serum or Plasma by Creatinine-based formula (MDRD) 87 mL/min/1.73m2 >60 [facility] Glomerular filtration rate/1.73 sq M pre dicted among blacks [Volume Rate/Area] in Serum or Plasma by Creatinine-based formula (MDRD) >60 [facility] ID Date Data Source [id number] 12/04/2020 11:04:15 AM EDT [facility] Name Value Range Interpretation Code Description Data Kayley rce(s) Supporting Document(s) Urate [Mass/volume] in Serum or Plasma 4.6 mg/dl 3.4-7.0 [facility] ID Date Data Source [id number] 12/04/2020 12:09:55 PM EDT [facility] Name Value Range Interpretation Code Description Data Kayley rce(s) Supporting Document(s) Lactate dehydrogenase [Enzymatic activit y/volume] in Serum or Plasma by Lactate to pyruvate reaction 222 U/L 122-225 [facility] ID Date Data Source [id number] 12/09/2020 09:06:04 PM EDT [facility] Name Value Range Interpretation Code Description Data Kayley rce(s) Supporting Document(s) Tien Ryan virus DNA [#/volume] (viral load) in Serum or Plasma by Probe and target amplification method 148 copies/mL Negative [facility] (NOTE)The quantitative range of this ass ay is 100 to 1 million copies/mL.This test was developed and its performance characteristicsdetermined by [employer]. It has not been cleared or approved by theod and Drug Administration. Tien Ryan virus DNA [Log #/volume] (v iral load) in Unspecified specimen by Probe and target amplification method 2.170 log10 copy/mL [facility] (NOTE)Performed At: [address] [id number] Sanjai MD Ph:[phone] ID Date Data Source [id number] [facility] Value Range Interpretation Code Description Data Kayley rce(s) Supporting Document(s) Hepatitis A virus IgM Ab [Presence] in Serum or Plasma by Im munoassay Non Reactive [facility] No acute infection, susceptible to infec tion. Hepatitis B virus core IgM Ab [Presence] in Serum or Plasma by Immunoassay Non Reactive [facility] IgM antibodies to HBc were not detected, does not exclude the possibility of exposure to HBV. Hepatitis C virus Ab [Presence] in Serum or Plasma by Immuno assay Non Reactive [facility] No serological evidence of active infect ion. If recent exposure is suspected, test for HCV RNA. Hepatitis B virus surface Ag [Presence] in Serum or Plasma b y Immunoassay Non Reactive [facility] No active or previous infection. Suscept ible to infection. ID Date Data Source [id number] 12/09/2020 04:04:00 PM [facility] Molecular Diagnostics ReportName: ED BROWNMRN: [id number] Number: [id number] Date: 12/04/2020 00:00Received Date: 12/05/2020 14:31Physician(s): ISAI BLAIR MBBS MADHIRA, BHASKARA, MBBSCopy To:FIDE VU MDSpecimen(s) ReceivedA: Bone Marrow - T-cell - [id number] OF STUDY: T-cell Receptor Gamma Chain Gene - PCR AssaySPECIMEN TYPE: Bone Marrow (#[id number])RESULTS: Positive Family I & III / J Major and Minor Negative Family II & IV / J Major and Minor Positive -band of about 115bp and 190bp INTERPRETATION: A clonal T-cell Receptor Gamma chain gene rearrangementwas detected, consistent with an abnormal proliferative process. Pleasenote that this assay is a good marker for clonality but is an unreliablemarker of T-cell lineage. The specificity for T- cell lineage is about 77%. COMMENTS: Extracted DNA was amplified with primers specific for detectinga rearranged T-cell receptor Gamma Chain gene (van Ilyaen et al. Etinewnt02:1413-2805, 2003). A positive result is expected when the clonalpopulation constitutes 10% or more of the sample. Diagnostic sensitivityfor detecting T-cell clonality is about 90%. Demonstration of a clonalpopulation alone is not diagnostic of malignancy. The results of generearrangement studies should be reviewed in conjunction with morphology,immunophenotyping, and clinical findings.This test was developed and its performance determined by the Departmentof Pathology. It has not been cleared or approved by the U.S. Food andDrug Administration (FDA), the FDA has determined that such approval isnot necessary. The test has been validated and authorized for clinical useby the [facility] of [facility] ([facility]).rw/jsElectronically Signed By Ez Mejia M.D. Attending Pathologist 12/09/2020 16:04:31 Name Value Range Interpretation Code Description Data Kayley rce(s) Supporting Document(s) ID Date Data Source [id number] 12/11/2020 05:55:00 PM [facility] Cytogenetics ReportName: DELBERT OLSONMRN: [id number] Number: [id number] Date: 12/04/2020 00:00Received Date: 12/04/2020 11:54Physician(s): ISAI BLAIR MBBS MADHIRA, BHASKARA, MBBSSpecimen(s) ReceivedA: Bone Marrow - Karyotype analysis and FISHClinical [id number] patient with NK T-cell lymphoma.TEST REQUESTED/PERFORMED: Chromosome analysis and fluorescence in situhybridization (FISH) InterpretationChromosome analysis revealed a normal male chromosome complement in allcells analyzed. As no chromosomal abnormalities were detected, the FISHstudy was canceled by Dr. Suresh Vu. Please correlate with the concurrentHematopathology report, [id number]. Electronically Signed By Josr Manley, PhD Attending Pathologist 12/11/2020 17:55:36Results and ISCN (2016) NomenclatureChromosome Tpffejqy42,XY[20] DescriptionA normal male chromosome complement was observed in twenty metaphasesanalyzed. Within the resolution limits of this assay, no consistentstructural and/or numerical c hromosome aberrations were detected. Test DataSpecimen Processed: Bone Marrow Chromosome Analysis:Metaphases Counted Metaphases Analyzed Metaphases Karyotyped BandingTechnique Band Resolution Culture 20 20 2 GTL 450-500 72 HR PHAstimulated Disclaimer: Conventional chromosome analysis may not detectsubmi croscopic chromosome aberrations or low level mosaicism. Name Value Range Interpretation Code Description Data Kayley rce(s) Supporting Document(s) ID Date Data Source [id number] 11/11/2020 11:14:00 AM EDT [facility] ([facility], ) Name Value Range Interpretation Code Description Data Kayley rce(s) Supporting Document(s) Bacteria identified in Nose by Aerobe culture Laboratory test re sult Normal (applies to non-numeric results) [facility] ([facility] ) FULL REPORT IN LAB NOTES ([facility] 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 Please see complete report from [facility] hematopathology department [id number], scanned in EMR under pathology module. 11/20/20201835 Addendum Signed____ Daniel La MD 11/20/2020 1841 FINAL DIAGNOSIS Left [...] process/lymphoma, the case will be sent to [facility] hematopathology department for consultation and further work [...] Dr. Guzman. 11/14/2020925 CLINICAL DIAGNOSIS Mucosal biopsy 11/12/2020 - 5178 GROSS DIAGNOSIS Received in formalin labeled "Ed Olson and designated left nasal mucosa" is a 0.9 x 0.6 x 0.2 cm. portion of pale marr soft tissue. Sectioned all in one. - 11/12/20201437 Signed Daniel La MD 11/14/2020925 ID Date Data Source [id number] 11/11/2020 10:00:00 AM EDT [facility] ([facility], ) Name Value Range Interpretation Code Description Data Kayley rce(s) Supporting Document(s) Surgical pathology study Laboratory test result [facility] ([facility], ) FINAL DIAGNOSIS Left nasal mucosa, biopsy: Collections [...] process/lymphoma, the case will be sent to [facility] hematopathology department for consultation and further work [...] Sectioned all in one. - 11/12/20201437 Signed Daniel La MD 11/14/2020 0909 ID Date Data Source [id number] 11/20/2020 04:47:00 PM EDT [facility] Hematopathology Report See Addendum Prem Briggs: ED OLSONMRN: [id number] Number: [id number] Date: 11/11/2020 00:00Received Date: 11/14/2020 12:54Physician(s): DANIEL LA MD HAGHIR, SHAHANDEH F,[facility]opy To:[facility]imen[facility]s) ReceivedA: Slides received for consultation, KB; RECEIVED 4 SLIDES AND 1 BLOCK OFLEFT NASAL MUCOSA BIOPSY LABELED [id number] COLLECTED ON 11/11/2020 FROM [facility] CONSULTATION WITH DR. LA DiagnosisA. Left nose, core biopsy: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, nasal typeSlizzeth Michel M.D.;Resident PathologistElectronically Signed By Nesha Pedraza MD AttendingPathologist 11/20/2020 16:47:04The attending pathologist named above attests that he/she has personallyreviewed the relevant preparation(s) for the specimen(s) and rendered thefinal diagnosis. Addendum 12/17/2020 T-cell PCR is negative for clonal T cells ([id number]). The diagnosisremains unchanged. Addendum Electronically Signed By: Millicent Hargrove M.D. 12/17/2020 09:55 Microscopic DescriptionSections show necrotic soft tissue fragments infiltrated by atypicalmedium-sized cells with irregular and hyperchromatic nuclei and variableamounts of cytoplasm. Numerous fungal hyphae, with morphology suggestiveof aspergillus species, are also present. Immunohistochemical staininghighlights the atypical cells with CD56, CD2, CD43 and JUAN-SARMDA. Background CD3, CD5 positive T cells are also present. CD20 rachel rare Bcells. ProceduresThis report may include one or more immunohistochemical stain/fluorochromeconjugated monoclonal antibody results that use analyte specific reagents.All positive and negative controls have been reviewed by the attendingpathologist and are satisfactory. The tests were developed and theirperformance characteristics determined by [facility] Pathology department.They have not been cleared or approved by the US Food and DrugAdministration. The FDA has determined that such clearance or approval isnot necessary. Name Value Range Interpretation Code Description Data Kayley rce(s) Supporting Document(s) ID Date Data Source [id number] 12/16/2020 03:31:00 PM [facility] Molecular Diagnostics ReportName: ED BROWNMRN: [id number] Number: [id number] Date: 11/11/2020 00:00Received Date: 12/11/2020 13:22Physician(s): DANIEL LA MD HAGHIR, SHAHANDEH F,MDCopy To:JESSICA FUENTES MDSpecimen(s) ReceivedA: Formalin Fixed Tissue - Left Nasal Mucosa Biopsy - T-cell - [id number] of Study: T-cell Receptor Gamma Chain PCR Assay SPECIMEN TYPE: Formalin Fixed Tissue - left nasal mucosa biopsy(#[id number]), Block # [id number]: Negative Family I & III / J Major and Minor Negative Family II & IV / J Major and Minor Negative withweak oligoclonal bands in the background INTERPRETATION: There was NO definitive evidence of a clonal population ofcells exhibiting a T-cell Receptor Gamma chain gene rearrangement. COMMENTS: Genomic DNA extracted from this sample was amplified withprimers specific for detecting a rearranged T-cell receptor Gamma Chaingene (van Dongen et al. Leukemia 17:3052-1352, 2003). A quality controlamplification showed DNA of sufficient length to be amplified by theT-cell receptor Gamma chain gene primers. Lack of demonstration of aclonal population by PCR is possible even in the presence of a clonalpopulation because of insufficient homology between the primers and thevariable region employed in the clone. Diagnostic sensitivity fordetecting T-cell clonality is about 90%. In addition, a negative resultcould be due to the presence of <10% clonal cells in the sample. Theresults of gene rearrangement studies should be reviewed in conjunctionwith morphology, immunophenotyping, and clinical findings.This test was developed and its performance determined by the MolecularDiagnostics section of the Department of Clinical Pathology. It has notbeen cleared or approved by the U.S. Food and Drug Administration (FDA),the FDA has determined that such approval is not necessary. The test hasbeen validated and authorized for clinical use by the [facility] ([facility]).rw/jsElectronically Signed By Ez Mejia M.D. Attending Pathologist 12/16/2020 15:31:09 Name Value Range Interpretation Code Description Data Kayley rce(s) Supporting Document(s) ID Date Data Source [id number] 09/22/2020 02:14:00 PM EDT [facility] ([facility], ) Name Value Range Interpretation Code Description Data Kayley rce(s) Supporting Document(s) Bacteria identified in Nose by Aerobe culture Laboratory test re sult Normal (applies to non-numeric results) [facility] ([facility], ) <content>FULL REPORT IN LAB NOTES ([facility] a nd [facility]).</content>
<content>NORMAL TIGIST PRESENT</content>
<content></content>
<content></content>
<content> ORGANISM 1: ENTEROBACTER AMNIGENUS 2</content>
<content></content>
<content>QUANTITY OF GROWTH FEW</content>
<content>Susceptibility standards are not available for</content>
<content>Enterobacter amnigenus.</content>
<content></content>
<content>ORGANISM 2: KLEBSIELLA OXYTOCA</content>
<content></content>
<content>QUANTITY OF GROWTH FEW</content>
<content></content>
<content></content>
<content>ORGANISM 1: ENTEROBACTER AMNIGENUS 2</content>
<content>ORGANISM 2: KLEBSIELLA OXYTOCA</content>
<content></content>
<content>KLEBSIELLA OXYTOCA: REACTION</content>
<content>TRIMETHOPRIM/SULFAMETHOXAZOLE IV 160mg TMP & 800mg SMXq6h <=20 S</content>
<content> TRIMETHOPRIM/SULFAMETHOXAZOLE PO Bactrim DS Bid <=20 S</content>
<content>AMPICILLIN IV 500mg q6h >=32 R</content>
<content>AMPICILLIN PO 500mg q6h fasting >=32 R</content>
<content>GENTAMICIN IV 80mg q8h <=1 S</content>
<content>CEFAZOLIN IV 1gm q8h <=4 S</content>
<content>LEVOFLOXACIN IV 500mg qd <=0.12 S</content>
<content>LEVOFLOXACIN PO 250mg qd <=0.12 S</content>
<content>LEVOFLOXACIN PO 500mg qd <=0.12 S</content>
<content>TOBRAMYCIN IV 80mg q8h <=1 S</content>
<content>CEFTRIAXONE IV 1gm q24h <=1 S</content>
<content>CEFTAZIDIME IV 1gm q8h <=1 S</content>
<content>AMPICILLIN/SULBACTAM IV 1.5g q6h 16 I</content>
<content>PIPERACILLIN/TAZOBACTAM IV 2.25 gm q6h <=4 S</content>
<content>AZTREONAM IV 1gm q8h <=1 S</content>
<content> ERTAPENEM IV 1gm qd <=0.5 S</content>
<content>MEROPENEM IV 1 gm q8h <=0.25 S</content>
<content>MEROPENEM IV 500 mg q8h <=0.25 S</content>
<content>TIGECYCLINE IV 50mg q12h <=0.5 S</content>
<content>CEFEPIME IV 1 gm q12h <=1 S</content>
<content>CEFEPIME IV 2 gm q12h <=1 S</content>
<content>EXTD BRD SPCTRM BETA LACTAMASE IV NEGATIVE FOR ESBL</content>
<content></content> ID Date Data Source [id number] 09/16/2020 08:19:49 AM EDT [facility] Name Value Range Interpretation Code Description Data Kayley rce(s) Supporting Document(s) &PDF [facility] [id number] vci [file] [id number] ID Date Data Source [id number] 07/18/2020 08:37:55 PM EDT [facility] Name Value Range Interpretation Code Description Data Kayley rce(s) Supporting Document(s) NT PRO BNP 181 pg/mL (0-125) H [facility] ID Date Data Source [id number] 07/18/2020 08:37:55 PM EDT [facility] Name Value Range Interpretation Code Description Data Kayley rce(s) Supporting Document(s) SODIUM 138 mmol/L (136-145) [facility] POTASSIUM 4.6 mmol/L (3.6-5.2) [facility] CHLORIDE 100 mmol/L (100-108) [facility] CO2 27 mmol/L (22-31) [facility] ANION GAP 11 mmol/L (7-16) [facility] UREA NITROGEN 12 mg/dL (7-24) [facility] CREATININE 0.82 mg/dL (0.80-1.30) [facility] BUN/CREAT RATIO 14.6 RATIO (10.0-20.0) [facility] GLUCOSE 101 mg/dL (70-99) H [facility] CALCIUM 9.2 mg/dL (8.4-10.2) [facility] GFR >60 ml/min/1.73m2 (>59) [facility] GFR ( AMER) >60 ml/min/1.73m2 (>59) [facility] GFR INTERPRETATION [facility] [place] --NORMAL KIDNEY FUNCTION OR MILD DISEASE - GFR >OR= 60CHRONIC KIDNEY DISEASE - GFR 15 - 59RENAL FAILURE - GFR <15 Est. GFR calculation based on the MDRDstudy equation, which assumes a steadystate for creatinine. Est. GFR should notbe used for medication dosing. ID Date Data Source [id number] 07/18/2020 08:26:03 PM EDT [facility] Name Value Range Interpretation Code Description Data Kayley rce(s) Supporting Document(s) WBC 6.1 10*3/uL (4.1-11.0) [facility] RBC 4.48 10*6/uL (4.60-6.10) L [facility] HGB 14.0 g/dL (13.5-18.0) [facility] HCT 42.0 % (41.0-53.0) [facility] MCV 93.7 fL (80.0-95.0) [facility] MCH 31.1 pg (27.0-32.0) [facility] MCHC 33.2 g/dL (32.0-36.0) [facility] RDW 13.6 % (10.5-14.5) [facility] PLT 262 10*3/uL (150-450) [facility] MPV 8.9 fL (7.1-10.7) [facility] ID Date Data Source [id number] 06/09/2020 01:09:00 PM EDT [facility] ([facility], ) Name Value Range Interpretation Code Description Data Kayley rce(s) Supporting Document(s) Surgical pathology study Laboratory test result [facility] ([facility], ) FINAL DIAGNOSIS A - Sinus contents, left [...] 1151 Signed ELMA MILLS MD 06/12/2020 0901 ID Date Data Source PT & APTT 06/05/2020 12:00:00 AM EDT eCW1 ([facility]) Name Value Range Interpretation Code Description Data Kayley rce(s) Supporting Document(s) 13.2 12.5-14.3 eCW1 ([facility]) 0.99 eCW1 ([facility]) 26.8 24.2-38.5 eCW1 ([facility]) ID Date Data Source [id number] 06/05/2020 12:00:00 AM EDT eCW1 (Critical access hospital) Name Value Range Interpretation Code Description Data Kayley rce(s) Supporting Document(s) Hemoglobin A1c/Hemoglobin.total in Blood 5.5 eCW1 ([facility]) ID Date Data Source Comprehensive Metabolic Profile (CMP) 06/05/2020 12:00:00 AM EDT eCW1 ([facility]) Name Value Range Interpretation Code Description Data Kayley rce(s) Supporting Document(s) 0.72 0.70-1.30 CREATININE FOR GFR eCW1 ([facility]) 106 70-100 GLUCOSE, FASTING eCW1 (Critical access hospital) 13 7-18 BLOOD UREA NITROGEN eCW1 ([facility]) 138 136-145 SODIUM LEVEL eCW1 ([facility]) 101 98-107 CHLORIDE LEVEL eCW1 ([facility]) > 60.0 >49 GLOMERULAR FILTRATION RATE eCW 1 ([facility]) 4.5 3.5-5.1 POTASSIUM SERUM eCW1 ([facility]) 24 7-37 AST/SGOT eCW1 ([facility]) 37 12-78 ALT/SGPT eCW1 ([facility]) 9.2 8.8-10.2 CALCIUM LEVEL eCW1 ([facility]) 31 21-32 CARBON DIOXIDE LEVEL eCW1 ([facility]) 4.2 3.2-5.2 ALBUMIN eCW1 ([facility]) 0.7 0.2-1.0 BILIRUBIN,TOTAL eCW1 ([facility]) 7.6 6.4-8.2 TOTAL PROTEIN eCW1 ([facility]) 70 45-117 ALKALINE PHOSPHATASE eCW1 ([facility]) 1.2 ALBUMIN/GLOBULIN RATIO eCW1 ([facility]) ID Date Data Source CBC with Differential 06/05/2020 12:00:00 AM EDT eCW1 ([facility]) Name Value Range Interpretation Code Description Data Kayley rce(s) Supporting Document(s) 8.8 4.0-10.0 WHITE BLOOD COUNT eCW1 ([facility]) 4.58 4.30-6.10 RED BLOOD COUNT eCW1 ([facility]) 30.3 27.0-33.0 MEAN CORPUSCULAR HEMOGLOB IN eCW1 ([facility]) 92.4 80.0-96.0 MEAN CORPUSCULAR VOLUME e CW1 ([facility]) 42.3 42.0-52.0 HEMATOCRIT eCW1 ([facility]) 13.9 13.5-17.5 HEMOGLOBIN eCW1 ([facility]) 32.9 32.0-36.5 MEAN CORPUSCULAR HGB CONC eCW1 ([facility]) 291 150-450 PLATELET COUNT, AUTOMATED eCW1 ([facility]) 13.9 11.5-14.5 RED CELL DISTRIBUTION WID TH eCW1 ([facility]) 9.9 2.0-8.0 MONO % eCW1 ([facility]) 0.0 0.0-3.0 EOS % eCW1 ([facility]) 76.8 36.0-66.0 NEUTROPHILS % eCW1 ([facility]) 12.5 24.0-44.0 LYMPH % eCW1 ([facility]) 0.9 0.0-0.8 MONO # eCW1 ([facility]) 1.1 1.5-5.0 LYMPH # eCW1 ([facility]) 6.8 1.5-8.5 NEUTROPHILS # eCW1 ([facility]) 0.2 0.0-1.0 BASO % eCW1 ([facility]) 0.0 0.0-0.5 EOS # eCW1 ([facility]) 0.0 0.0-0.2 BASO # eCW1 ([facility]) ID Date Data Source NT-PRO BNP 06/05/2020 12:00:00 AM EDT eCW1 (Critical [facility] hospital) Name Value Range Interpretation Code Description Data Kayley rce(s) Supporting Document(s) 285 <125 eCW1 ([facility]) ID Date Data Source [id number] 06/04/2020 12:25:00 PM EDT [facility] Name Value Range Interpretation Code Description Data Kayley rce(s) Supporting Document(s) SARS coronavirus 2 RNA Detected [facility] This lab was ordered by [facility] and reported by [facility]. ID Date Data Source [id number] 05/13/2020 12:09:00 PM EST [facility] ([facility], ) Name Value Range Interpretation Code Description Data Kayley rce(s) Supporting Document(s) Creatinine For GFR 0.66 mg/dL 0.70-1.30 Below low normal [facility] ([facility], ) Glomerular Filtration Rate Laboratory test result Normal (applies to non- numeric results) [facility] ([facility] ) <content>Units are mL/min/1.73 m2</content>
<content></content>
<content>Chronic Kidney Disease Staging per NKF:</content>
<content></content>
<content>Stage I & II GFR >=60 Normal to Mildly Decreased</content>
<content>Stage III GFR 30- 59 Moderately Decreased</content>
<content>Stage IV GFR 15-29 Severely Decreased</content>
<content>Stage V GFR <15 Very Little GFR Left</content>
<content>ESRD GFR <15 on [employer] DRIVER</content>
<content></content> ID Date Data Source [id number] 05/13/2020 12:09:00 PM EST [facility] ([facility], ) Name Value Range Interpretation Code Description Data Kayley rce(s) Supporting Document(s) Urea nitrogen [Mass/volume] in Serum or Plasma 6 mg/dL 7-18 Below low normal [facility] ([facility] ) ID Date Data Source [id number] 05/12/2020 01:30:00 PM EST [facility] ([facility], ) Name Value Range Interpretation Code Description Data Kayley rce(s) Supporting Document(s) Surgical pathology study Laboratory test result [facility] ([facility] ) FINAL DIAGNOSIS Nasal polyp, left, removal: Inflammatory nasal polyp. No fungal organisms on special stains. Comment: Immunohistochemical stains for CD68 and pancytokeratin were utilized, and support the above diagnosis. Special stains for GMS and PAS were utilized to evaluate for fungal organisms. 05/15/2020 - 1354 CLINICAL DIAGNOSIS Nasal polyp 05/13/20201401 GROSS DIAGNOSIS Received in formalin labeled "left nasal polyp" and consists of multiple fragments of marr mucosal tissue measuring 1.3 x 1.0 x 0.4 cm. in aggregate. All in one. -SV 05/13/2020 - 1401 Signed ELMA MILLS MD 05/16/2020 1246 ID Date Data Source [id number] 03/04/2020 12:00:00 AM EST [facility] Name Value Range Interpretation Code Description Data Kayley rce(s) Supporting Document(s) SARS-CoV2 Rapid Antigen [facility] This lab was reported by [facility]. ID Date Data Source HEPATITIS A IgG 02/27/2020 12:00:00 AM EST eCW1 ([facility]) Name Value Range Interpretation Code Description Data Kayley rce(s) Supporting Document(s) Negative Negative HEPATITIS A IgG TOTAL eCW 1 ([facility]) ID Date Data Source HEPATITIS C VIRUS AB SCRN MEDICARE 02/27/2020 12:00:00 AM ES T eCW1 ([facility]) Name Value Range Interpretation Code Description Data Kayley rce(s) Supporting Document(s) 0.1 <0.8 HEP C VIRUS AB SCREEN MED ICARE eCW1 ([facility]) ID Date Data Source HEPATITIS B SURFACE ANTIGEN 02/27/2020 12:00:00 AM EST eCW1 ([facility]) Name Value Range Interpretation Code Description Data Kayley rce(s) Supporting Document(s) NEGATIVE NEGATIVE HEPATITIS B SURFACE ANTIG EN eCW1 ([facility]) ID Date Data Source HEPATITIS B SURFACE ANTIBODY 02/27/2020 12:00:00 AM EST eCW1 ([facility]) Name Value Range Interpretation Code Description Data Kayley rce(s) Supporting Document(s) NEGATIVE POSITIVE HEPATITIS B SURFACE ANTIB TRI eCW1 ([facility]) ID Date Data Source HEPATITIS A ANTIBODY IGM 02/27/2020 12:00:00 AM EST eCW1 ([facility]) Name Value Range Interpretation Code Description Data Kayley rce(s) Supporting Document(s) NEGATIVE NEGATIVE HEPATITIS A ANTIBODY IGM eCW1 ([facility]) ID Date Data Source CT Maxillofacial w/out Contrast 02/19/2020 12:00:00 AM EST e CW1 ([facility]) Name Value Range Interpretation Code Description Data Kayley rce(s) Supporting Document(s) eCW1 ([facility]) ID Date Data Source PSA SCREENING 02/12/2020 12:00:00 AM EST eCW1 ([facility]) Name Value Range Interpretation Code Description Data Kayley rce(s) Supporting Document(s) 1.71 < 4.00 eCW1 ([facility]) ID Date Data Source LIPID PANEL (CARDIAC RISK) 02/12/2020 12:00:00 AM EST eCW1 ( [facility]) Name Value Range Interpretation Code Description Data Kayley rce(s) Supporting Document(s) Triglyceride [Mass/volume] in Serum or Plasma by calculation 82 <150 eCW1 ([facility]) Cholesterol in LDL [Mass/volume] in Serum or Plasma by calculation 71 <100 eCW1 ([facility]) 87 eCW1 ([facility]) Cholesterol in HDL [Moles/volume] in Serum or Plasma 97 >40 eCW1 ([facility]) Cholesterol [Moles/volume] in Serum or Plasma 184 <200 eCW1 ([facility]) 1.896 <5 eCW1 ([facility]) ID Date Data Source FREE T4 & TSH PANEL 02/12/2020 12:00:00 AM EST eCW1 (Critical [facility] hospital) Name Value Range Interpretation Code Description Data Kayley rce(s) Supporting Document(s) 0.528 0.358-3.740 eCW1 ([facility]) 0.99 0.76-1.46 eCW1 ([facility]) ID Date Data Source CPK CREATINE PHOSPHOKINASE 02/12/2020 12:00:00 AM EST eCW1 ( [facility]) Name Value Range Interpretation Code Description Data Kayley rce(s) Supporting Document(s) 76 39-058 eCW1 ([facility]) Procedure Social History Code Duration Value Status Description Data Source(s ) Smoking 12/28/2020 12:00:00 AM EDT Former Smoker completed Former Smoker eCW1 ([facility]) Smoking 12/23/2020 12:00:00 AM EDT Former Smoker completed Former Smoker eCW1 ([facility]) Smoking 12/02/2020 12:00:00 AM EDT Former Smoker completed Former Smoker eCW1 ([facility]) Smoking 12/02/2020 12:00:00 AM EDT Former Smoker completed Former Smoker eCW1 ([facility]) Smoking 12/02/2020 12:00:00 AM EDT Former Smoker completed Former Smoker eCW1 ([facility]) Alcohol intake 07/18/2020 12:00:00 AM EDT Current drinker of al cohol (finding) completed Current drinker of alcohol (finding) [facility] Smoking 06/05/2020 12:00:00 AM EDT Former Smoker completed Former Smoker eCW1 ([facility]) Smoking 06/05/2020 12:00:00 AM EDT Former Smoker completed Former Smoker eCW1 ([facility]) Smoking 06/05/2020 12:00:00 AM EDT Former Smoker completed Former Smoker eCW1 ([facility]) Smoking 06/05/2020 12:00:00 AM EDT Former Smoker completed Former Smoker eCW1 ([facility]) Smoking 06/05/2020 12:00:00 AM EDT Former Smoker completed Former Smoker eCW1 ([facility]) Smoking 02/27/2020 12:00:00 AM EST Former Smoker completed Former Smoker eCW1 ([facility]) Smoking 02/27/2020 12:00:00 AM EST Former Smoker completed Former Smoker eCW1 ([facility]) Smoking 02/27/2020 12:00:00 AM EST Former Smoker completed Former Smoker eCW1 ([facility]) Smoking 02/27/2020 12:00:00 AM EST Former Smoker completed Former Smoker eCW1 ([facility]) Smoking 02/19/2020 12:00:00 AM EST Former Smoker completed Former Smoker eCW1 ([facility]) Smoking 02/19/2020 12:00:00 AM EST Former Smoker completed Former Smoker eCW1 ([facility]) Smoking 02/12/2020 12:00:00 AM EST Former Smoker completed Former Smoker eCW1 ([facility]) Alcohol intake 01/15/2020 12:00:00 AM EST Yes completed [facility] Cigarette pack-years 01/15/2020 12:00:00 AM EST UNK completed [facility] Cigarettes smoked current (pack per day) - Reported 01/15/20 12:00:00 AM EST UNK completed [facility] Smoking 01/15/2020 12:00:00 AM EST Former smoker completed Former smoker [facility] Smoking 01/01/2020 12:00:00 AM EDT Former Smoker completed Former Smoker eCW1 ([facility]) Smoking 01/01/2020 12:00:00 AM EDT Former Smoker completed Former Smoker eCW1 ([facility]) Smoking 01/01/2020 12:00:00 AM EDT Former Smoker completed Former Smoker eCW1 ([facility]) Smoking 01/01/2020 12:00:00 AM EDT Former Smoker completed Former Smoker eCW1 ([facility]) Vital Signs ID Date Data Source UNK Name Value Range Interpretation Code Description Data Source(s) Body height 68 [in_i] 68 [in_i] SANDRITA ([facility], ) 5'8" Body weight 190.00 [lb_av] 190.00 [lb_av] FRED Dupree ([facility] ) Body mass index (BMI) [Ratio] 28.9 kg/m2 28.9 k g/m2 SANDRITA ([facility] ) [place] body weight 154 [lb_av] 154 [lb_av] FRED Dupree ([facility]) Body weight 86.184 kg 86.184 kg [facility] Body surface area Derived from formula 2.00 m2 2.00 m2 [facility] ([facility]) Body weight 188 [lb_av] 188 [lb_av] eCW1 ([facility]) Body weight 85.28 kg 85.28 kg eCW1 ([facility]) Body height 70.5 [in_i] 70.5 [in_i] eCW1 ([facility]) Body mass index (BMI) [Ratio] 26.59 kg/m2 26.59 kg/m2 eCW1 ([facility]) Heart rate 67 /min 67 /min eCW1 ([facility]) Respiratory rate 18 /min 18 /min eCW1 ([facility]) Body temperature 99 [degF] 99 [degF] eCW1 ([facility]) Systolic blood pressure 128 mm[Hg] 128 mm[Hg] e CW1 ([facility]) Diastolic blood pressure 62 mm[Hg] 62 mm[Hg] eCW1 ([facility]) Systolic blood pressure 118 mm[Hg] 118 mm[Hg] M EDENT ([facility]) Diastolic blood pressure 80 mm[Hg] 80 mm[Hg] [facility] ([facility]) Body mass index (BMI) [Ratio] 29.2 kg/m2 29.2 k g/m2 [facility] Body weight 87.091 kg 87.091 kg [facility] ([facility]) Heart rate 67 /min 67 /min [facility] ([facility]) Oxygen saturation in Arterial blood by Pulse oximetry 98 % 98 % [facility] ([facility]) Body temperature 99.9 [degF] 99.9 [degF] [facility] ([facility]) Body height 68 [in_i] 68 [in_i] [facility] ([facility]) 5'8" Body weight 192.00 [lb_av] 192.00 [lb_av] MEDEN T ([facility]) [place] body weight 154 [lb_av] 154 [lb_av] MEDEN T ([facility]) Body surface area Derived from formula 2.01 m2 2.01 m2 [facility] ([facility]) Body weight 192 [lb_av] 192 [lb_av] eCW1 ([facility]) Body weight 87.09 kg 87.09 kg eCW1 ([facility]) Body height 70.5 [in_i] 70.5 [in_i] eCW1 ([facility]) Body mass index (BMI) [Ratio] 27.16 kg/m2 27.16 kg/m2 eCW1 ([facility]) Heart rate 72 /min 72 /min eCW1 ([facility]) Respiratory rate 18 /min 18 /min eCW1 ([facility]) Body temperature 98.9 [degF] 98.9 [degF] eCW1 ( [facility]) Systolic blood pressure 144 mm[Hg] 144 mm[Hg] e CW1 ([facility]) Diastolic blood pressure 72 mm[Hg] 72 mm[Hg] eCW1 ([facility]) Oxygen saturation in Arterial blood by Pulse oximetry 97 % 97 % [facility] ([facility]) Heart rate 68 /min 68 /min [facility] ([facility]) Body temperature 99.4 [degF] 99.4 [degF] [facility] ([facility]) Body height 68 [in_i] 68 [in_i] [facility] ([facility]) 5'8" Body weight 193.00 [lb_av] 193.00 [lb_av] MEDEN T ([facility]) Body mass index (BMI) [Ratio] 29.3 kg/m2 29.3 k g/m2 [facility] ([facility]) [place] body weight 154 [lb_av] 154 [lb_av] MEDEN T ([facility]) Body weight 87.545 kg 87.545 kg [facility] ([facility]) Body surface area Derived from formula 2.01 m2 2.01 m2 [facility] ([facility]) Diastolic blood pressure 70 mm[Hg] 70 mm[Hg] [facility] ([facility]) Systolic blood pressure 128 mm[Hg] 128 mm[Hg] [facility] ([facility]) Oxygen saturation in Arterial blood by Pulse oximetry 98 % 98 % [facility] ([facility]) Heart rate 70 /min 70 /min [facility] ([facility]) Body height 68 [in_i] 68 [in_i] [facility] ([facility]) 5'8" Body temperature 100.1 [degF] 100.1 [degF] MEDE NT ([facility]) Systolic blood pressure 130 mm[Hg] 130 mm[Hg] [facility] ([facility]) Body weight 188.00 [lb_av] 188.00 [lb_av] MEDEN T ([facility]) Diastolic blood pressure 90 mm[Hg] 90 mm[Hg] [facility] ([facility]) Body mass index (BMI) [Ratio] 28.6 kg/m2 28.6 k g/m2 [facility] ([facility]) [place] body weight 154 [lb_av] 154 [lb_av] MEDEN T ([facility]) Body weight 85.277 kg 85.277 kg [facility] ([facility]) Body surface area Derived from formula 1.99 m2 1.99 m2 [facility] ([facility]) Body height 68 [in_i] 68 [in_i] [facility] ([facility]) 5'8" Body weight 85.730 kg 85.730 kg [facility] ([facility]) Body surface area Derived from formula 2.00 m2 2.00 m2 [facility] ([facility]) Body mass index (BMI) [Ratio] 28.7 kg/m2 28.7 k g/m2 [facility] ([facility]) [place] body weight 154 [lb_av] 154 [lb_av] MEDEN T ([facility]) Body weight 189.00 [lb_av] 189.00 [lb_av] MEDEN T ([facility]) Body mass index (BMI) [Ratio] 29.0 kg/m2 29.0 k g/m2 [facility] ([facility]) Body height 68 [in_i] 68 [in_i] [facility] ([facility]) 5'8" Body weight 191.00 [lb_av] 191.00 [lb_av] MEDEN T ([facility]) [place] body weight 154 [lb_av] 154 [lb_av] MEDEN T ([facility]) Body weight 86.638 kg 86.638 kg [facility] ([facility]) Body surface area Derived from formula 2.00 m2 2.00 m2 [facility] ([facility]) Body surface area Derived from formula 2.00 m2 2.00 m2 [facility] Body weight 86.184 kg 86.184 kg [facility] ([facility]) [place] body weight 154 [lb_av] 154 [lb_av] MEDEN T ([facility]) Body height 68 [in_i] 68 [in_i] [facility] ([facility]) 5'8" Body weight 190.00 [lb_av] 190.00 [lb_av] MED[facility] T ([facility]) Body mass index (BMI) [Ratio] 28.9 kg/m2 28.9 k g/m2 [facility] [place] body weight 154 [lb_av] 154 [lb_av] MEDEN T ([facility]) Body surface area Derived from formula 2.00 m2 2.00 m2 [facility] ([facility]) Body weight 86.184 kg 86.184 kg [facility] ([facility]) Body mass index (BMI) [Ratio] 28.9 kg/m2 28.9 k g/m2 [facility] Body height 68 [in_i] 68 [in_i] [facility] ([facility]) 5'8" Body weight 190.00 [lb_av] 190.00 [lb_av] MEDEN T ([facility]) Body mass index (BMI) [Ratio] 28.9 kg/m2 28.9 k g/m2 [facility] ([facility]) [place] body weight 154 [lb_av] 154 [lb_av] MEDEN T ([facility]) Body weight 86.184 kg 86.184 kg [facility] ([facility]) Body surface area Derived from formula 2.00 m2 2.00 m2 [facility] ([facility]) Body height 68 [in_i] 68 [in_i] [facility] ([facility]) 5'8" Body weight 190.00 [lb_av] 190.00 [lb_av] MEDEN T ([facility]) Systolic blood pressure 120 mm[Hg] 120 mm[Hg] [facility] Diastolic blood pressure 68 mm[Hg] 68 mm[Hg] [facility] Heart rate 67 /min 67 /min [facility] Body height 180.3 cm 180.3 cm [facility] Body weight 85.73 kg 85.73 kg [facility] Body mass index (BMI) [Ratio] 26.36 kg/m2 26.36 kg/m2 [facility] Oxygen saturation in Arterial blood by Pulse oximetry 97 % 97 % [facility] Systolic blood pressure 126 mm[Hg] 126 mm[Hg] M EDENT ([facility]) Diastolic blood pressure 76 mm[Hg] 76 mm[Hg] [facility] ([facility]) [place] body weight 154 [lb_av] 154 [lb_av] MEDEN T ([facility]) Body weight 86.638 kg 86.638 kg [facility] ([facility]) Oxygen saturation in Arterial blood by Pulse oximetry 98 % 98 % [facility] ([facility]) Room Air Body height 68 [in_i] 68 [in_i] [facility] ([facility]) 5'8" Body weight 191.00 [lb_av] 191.00 [lb_av] MEDEN T ([facility]) Body mass index (BMI) [Ratio] 29.0 kg/m2 29.0 k g/m2 [facility] ([facility]) Body surface area Derived from formula 2.00 m2 2.00 m2 [facility] ([facility]) Heart rate 66 /min 66 /min [facility] ([facility]) Oxygen saturation in Arterial blood by Pulse oximetry 98 % 98 % [facility] [facility] ([facility]) Room Air Body height 68 [in_i] 68 [in_i] [facility] ([facility]) 5'8" Body weight 191.00 [lb_av] 191.00 [lb_av] MEDEN T ([facility]) Body mass index (BMI) [Ratio] 29.0 kg/m2 29.0 k g/m2 [facility] ([facility]) [place] body weight 154 [lb_av] 154 [lb_av] MEDEN T ([facility]) Body weight 86.638 kg 86.638 kg [facility] ([facility]) Body surface area Derived from formula 2.00 m2 2.00 m2 [facility] ([facility]) Body height 68 [in_i] 68 [in_i] [facility] ([facility]) 5'8" Body weight 188.00 [lb_av] 188.00 [lb_av] MEDEN T ([facility]) Body mass index (BMI) [Ratio] 28.6 kg/m2 28.6 k g/m2 [facility] ([facility]) [place] body weight 154 [lb_av] 154 [lb_av] MEDEN T ([facility]) Body weight 85.277 kg 85.277 kg [facility] ([facility]) Body surface area Derived from formula 1.99 m2 1.99 m2 [facility] ([facility]) Diastolic blood pressure 70 mm[Hg] 70 mm[Hg] [facility] ([facility]) Heart rate 69 /min 69 /min [facility] ([facility]) Systolic blood pressure 120 mm[Hg] 120 mm[Hg] [facility] Oxygen saturation in Arterial blood by Pulse oximetry 97 % 97 % [facility] ([facility]) Room Air Body height 68 [in_i] 68 [in_i] [facility] ([facility]) 5'8" Body weight 188.00 [lb_av] 188.00 [lb_av] MED[facility] T ([facility]) Body mass index (BMI) [Ratio] 28.6 kg/m2 28.6 k g/m2 [facility] ([facility]) [place] body weight 154 [lb_av] 154 [lb_av] MED[facility] T ([facility]) Body weight 85.277 kg 85.277 kg [facility] ([facility]) Body surface area Derived from formula 1.99 m2 1.99 m2 [facility] ([facility]) Body mass index (BMI) [Ratio] 28.3 kg/m2 28.3 k g/m2 [facility] ([facility]) Body height 68 [in_i] 68 [in_i] [facility] ([facility]) 5'8" Body weight 186.00 [lb_av] 186.00 [lb_av] MED[facility] T ([facility]) [place] body weight 154 [lb_av] 154 [lb_av] [facility] T ([facility]) Body weight 84.370 kg 84.370 kg [facility] ([facility]) Body surface area Derived from formula 1.98 m2 1.98 m2 [facility] ([facility]) Body height 68 [in_i] 68 [in_i] [facility] ([facility]) 5'8" Body weight 186.00 [lb_av] 186.00 [lb_av] MEDEN T ([facility]) Body mass index (BMI) [Ratio] 28.3 kg/m2 28.3 k g/m2 [facility] ([facility]) [place] body weight 154 [lb_av] 154 [lb_av] MED[facility] T ([facility]) Body weight 84.370 kg 84.370 kg [facility] ([facility]) Body surface area Derived from formula 1.98 m2 1.98 m2 [facility] ([facility]) Body weight 189.4 [lb_av] 189.4 [lb_av] eCW1 ([facility]) Body height 70.5 [in_i] 70.5 [in_i] eCW1 ([facility]) Body mass index (BMI) [Ratio] 26.79 kg/m2 26.79 kg/m2 eCW1 ([facility]) Heart rate 83 /min 83 /min eCW1 ([facility]) Respiratory rate 20 /min 20 /min eCW1 ([facility]) Body temperature 99.5 [degF] 99.5 [degF] eCW1 ( [facility]) Systolic blood pressure 138 mm[Hg] 138 mm[Hg] e CW1 ([facility]) Diastolic blood pressure 72 mm[Hg] 72 mm[Hg] eCW1 ([facility]) Body height 68 [in_i] 68 [in_i] [facility] ([facility]) 5'8" Body weight 186.00 [lb_av] 186.00 [lb_av] MED[facility] T ([facility]) Body mass index (BMI) [Ratio] 28.3 kg/m2 28.3 k g/m2 [facility] ([facility]) [place] body weight 154 [lb_av] 154 [lb_av] MED[facility] T ([facility]) Body weight 84.370 kg 84.370 kg [facility] ([facility]) Body surface area Derived from formula 1.98 m2 1.98 m2 [facility] ([facility]) Body height 68 [in_i] 68 [in_i] [facility] 5'8" Body weight 186.00 [lb_av] 186.00 [lb_av] MED[facility] T ([facility]) Body mass index (BMI) [Ratio] 28.3 kg/m2 28.3 k g/m2 [facility] [place] body weight 154 [lb_av] 154 [lb_av] MED[facility] T ([facility]) Body weight 84.370 kg 84.370 kg [facility] ([facility]) Body surface area Derived from formula 1.98 m2 1.98 m2 [facility] ([facility]) Body height 68 [in_i] 68 [in_i] [facility] 5'8" Body weight 186.00 [lb_av] 186.00 [lb_av] MED[facility] T ([facility]) Body mass index (BMI) [Ratio] 28.3 kg/m2 28.3 k g/m2 [facility] ([facility]) [place] body weight 154 [lb_av] 154 [lb_av] MED[facility] T ([facility]) Body weight 84.370 kg 84.370 kg [facility] ([facility]) Body surface area Derived from formula 1.98 m2 1.98 m2 [facility] ([facility]) Body height 68 [in_i] 68 [in_i] [facility] ([facility]) 5'8" Body weight 186.00 [lb_av] 186.00 [lb_av] MED[facility] T ([facility]) Body mass index (BMI) [Ratio] 28.3 kg/m2 28.3 k g/m2 [facility] ([facility]) [place] body weight 154 [lb_av] 154 [lb_av] MED[facility] T ([facility]) Body weight 84.370 kg 84.370 kg [facility] ([facility]) Body surface area Derived from formula 1.98 m2 1.98 m2 [facility] ([facility]) Systolic blood pressure 144 mm[Hg] 144 mm[Hg] EDENT ([facility]) Diastolic blood pressure 79 mm[Hg] 79 mm[Hg] [facility]) Heart rate 65 /min 65 /min MEDENT ([facility], [facility]) Respiratory rate 16 /min 16 /min MEDENT ( [facility], [facility]) Oxygen saturation in Arterial blood by Pulse oximetry 96 % 96 % [facility]ENT ([facility], [facility]) Body temperature 98.7 [degF] 98.7 [degF] MEDENT ([facility], [facility]) Body weight 182.00 [lb_av] 182.00 [lb_av] MEDEN T ([facility], [facility]) Body weight 192.6 [lb_av] 192.6 [lb_av] eCW1 ([facility]) Body height 70.5 [in_i] 70.5 [in_i] eCW1 ([facility]) Body mass index (BMI) [Ratio] 27.24 kg/m2 27.24 kg/m2 W1 ([facility]) Heart rate 74 /min 74 /min eCW1 ([facility]) Respiratory rate 18 /min 18 /min eCW1 ([facility]) Body temperature 98.7 [degF] 98.7 [degF] eCW1 ( [facility]) Systolic blood pressure 140 mm[Hg] 140 mm[Hg] e CW1 ([facility]) Diastolic blood pressure 66 mm[Hg] 66 mm[Hg] eCW1 ([facility]) Oxygen saturation in Arterial blood by Pulse oximetry 99 % 99 % [facility], ) Body mass index (BMI) [Ratio] 29.2 kg/m2 29.2 k g/m2 [facility], ) [place] body weight 154 [lb_av] 154 [lb_av] MEDEN T ([facility], ) Body weight 87.091 kg 87.091 kg [facility], ) Body surface area Derived from formula 2.01 m2 2.01 m2 [facility], ) Body temperature 98.5 [degF] 98.5 [degF] [facility], ) Body height 68 [in_i] 68 [in_i] MEDENT ([facility], ) 5'8" Body weight 192.00 [lb_av] 192.00 [lb_av] MEDEN T ([facility], ) Systolic blood pressure 130 mm[Hg] 130 mm[Hg] M EDENT ([facility], ) Diastolic blood pressure 72 mm[Hg] 72 mm[Hg] MEDENT ([facility], ) Heart rate 70 /min 70 /min MEDENT ([facility], ) Body weight 192 [lb_av] 192 [lb_av] eCW1 ([facility]) Body height 70.5 [in_i] 70.5 [in_i] eCW1 ([facility]) Body mass index (BMI) [Ratio] 27.16 kg/m2 27.16 kg/m2 [facility] ([facility]) Heart rate 79 /min 79 /min eCW1 ([facility]) Respiratory rate 18 /min 18 /min eCW1 ([facility]) Body temperature 99.6 [degF] 99.6 [degF] eCW1 ( [facility]) Systolic blood pressure 132 mm[Hg] 132 mm[Hg] e CW1 ([facility]) Diastolic blood pressure 74 mm[Hg] 74 mm[Hg] eCW1 ([facility]) Systolic blood pressure 148 mm[Hg] 148 mm[Hg] [facility] Diastolic blood pressure 82 mm[Hg] 82 mm[Hg] [facility] Heart rate 70 /min 70 /min [facility] Body height 180.3 cm 180.3 cm [facility] Body weight 86.183 kg 86.183 kg [facility] Body mass index (BMI) [Ratio] 26.50 kg/m2 26.50 kg/m2 [facility] Oxygen saturation in Arterial blood by Pulse oximetry 98 % 98 % [facility] Body height 70.5 [in_i] 70.5 [in_i] eCW1 ([facility]) Body weight 186 [lb_av] 186 [lb_av] eCW1 ([facility]) Body mass index (BMI) [Ratio] 26.31 kg/m2 26.31 kg/m2 eCW1 ([facility]) Heart rate 88 /min 88 /min eCW1 ([facility]) Respiratory rate 18 /min 18 /min eCW1 ([facility]) Body temperature 99.2 [degF] 99.2 [degF] eCW1 ( [facility]) Systolic blood pressure 128 mm[Hg] 128 mm[Hg] e CW1 ([facility]) Diastolic blood pressure 70 mm[Hg] 70 mm[Hg] eCW1 ([facility]) Systolic blood pressure 118 mm[Hg] 118 mm[Hg] M EDENT ([facility], ) Diastolic blood pressure 78 mm[Hg] 78 mm[Hg] [facility] Heart rate 66 /min 66 /min [facility]) Oxygen saturation in Arterial blood by Pulse oximetry 98 % 98 % [facility] ([facility]) Room Air Body height 68 [in_i] 68 [in_i] [facility] ([facility]) 5'8" Body weight 190.00 [lb_av] 190.00 [lb_av] MEDEN T ([facility]) Body mass index (BMI) [Ratio] 28.9 kg/m2 28.9 k g/m2 [facility] ([facility]) [place] body weight 154 [lb_av] 154 [lb_av] MEDEN T ([facility]) Body weight 86.184 kg 86.184 kg [facility] ([facility]) Body surface area Derived from formula 2.00 m2 2.00 m2 [facility] ([facility]) Patient Treatment Plan of Care Planned Activity Planned Date Details Description Data Source (s) voriconazole 200 MG Oral Tablet 12/02/2020 12:00:00 AM EDT eCW1 ([facility]) voriconazole 200 MG Oral Tablet 12/02/2020 12:00:00 AM EDT eCW1 ([facility]) voriconazole 200 MG Oral Tablet 12/02/2020 12:00:00 AM EDT eCW1 ([facility]) Hydrochlorothiazide 12.5 MG Oral Tablet 09/12/2020 12:00:00 AM EDT [facility] Simvastatin 40 MG Oral Tablet 09/04/2020 12:00:00 AM EDT [facility] Lisinopril 40 MG Oral Tablet 06/18/2020 12:00:00 AM EDT [facility] Aspir-Low 81 MG 03/11/2020 12:00:00 AM EST eCW1 ([facility]) Aspir-Low 81 MG 03/11/2020 12:00:00 AM EST eCW1 ([facility]) Aspir-Low 81 MG 03/11/2020 12:00:00 AM EST eCW1 ([facility]) Aspir-Low 81 MG 03/11/2020 12:00:00 AM EST eCW1 ([facility]) Doxycycline Monohydrate 100 MG Oral Capsule 02/18/2020 12:00:00 AM EST eCW1 ([facility]) Doxycycline Monohydrate 100 MG Oral Capsule 02/18/2020 12:00:00 AM EST eCW1 ([facility]) Doxycycline Monohydrate 100 MG Oral Capsule 02/18/2020 12:00:00 AM EST eCW1 ([facility]) Doxycycline Monohydrate 100 MG Oral Capsule 02/18/2020 12:00:00 AM EST eCW1 ([facility]) Doxycycline Monohydrate 100 MG Oral Capsule 02/18/2020 12:00:00 AM EST eCW1 ([facility]) Doxycycline Monohydrate 100 MG Oral Capsule 02/18/2020 12:00:00 AM EST eCW1 ([facility]) Doxycycline Monohydrate 100 MG Oral Capsule 02/18/2020 12:00:00 AM EST eCW1 ([facility]) Doxycycline Monohydrate 100 MG Oral Capsule 02/18/2020 12:00:00 AM EST eCW1 ([facility]) Doxycycline Monohydrate 100 MG Oral Capsule 02/18/2020 12:00:00 AM EST eCW1 ([facility]) Doxycycline Monohydrate 100 MG Oral Capsule 02/18/2020 12:00:00 AM EST eCW1 ([facility]) Doxycycline Monohydrate 100 MG Oral Capsule 02/18/2020 12:00:00 AM EST eCW1 ([facility]) Sulfamethoxazole 800 MG / Trimethoprim 160 MG Oral Tab let [Bactrim] 02/12/2020 12:00:00 AM EST eCW1 ([facility]) Trazodone Hydrochloride 50 MG Oral Tablet 01/28/2020 12:00:00 AM ES T eCW1 ([facility]) Trazodone Hydrochloride 50 MG Oral Tablet 01/28/2020 12:00:00 AM ES T eCW1 ([facility]) Trazodone Hydrochloride 50 MG Oral Tablet 01/28/2020 12:00:00 AM ES T eCW1 ([facility]) Trazodone Hydrochloride 50 MG Oral Tablet 01/28/2020 12:00:00 AM ES T eCW1 ([facility]) Trazodone Hydrochloride 50 MG Oral Tablet 01/28/2020 12:00:00 AM ES T eCW1 ([facility]) Trazodone Hydrochloride 50 MG Oral Tablet 01/28/2020 12:00:00 AM ES T eCW1 ([facility]) Trazodone Hydrochloride 50 MG Oral Tablet 01/28/2020 12:00:00 AM ES T eCW1 ([facility]) Simvastatin 40 MG Oral Tablet 01/09/2020 12:00:00 AM EDT [facility] Levofloxacin 500 MG Oral Tablet 01/01/2020 12:00:00 AM EDT eCW1 ([facility]) Levofloxacin 500 MG Oral Tablet 01/01/2020 12:00:00 AM EDT eCW1 ([facility]) Levofloxacin 500 MG Oral Tablet 01/01/2020 12:00:00 AM EDT eCW1 ([facility]) Levofloxacin 500 MG Oral Tablet 01/01/2020 12:00:00 AM EDT eCW1 ([facility]) Lisinopril 40 MG Oral Tablet 08/20/2019 12:00:00 AM EDT [facility] Hydrochlorothiazide 12.5 MG Oral Tablet 08/07/2019 12:00:00 AM EDT [facility]
[2021-01-23] MEDS ORDERED: ONDA8TAB10 (11:13)
[2021-01-23] MEDS ORDERED: SODI1TAB6 (11:13)
[2021-01-23] MEDS ORDERED: HYDR-4467 (11:13)
[2021-01-23] MEDS ORDERED: ISOVUE-370 76% 100ML VIAL As Ordered ONE (12:14)
[2021-01-23 12:23] LABS: HEMATOCRIT 32.9 % (42.0-52.0); HEMOGLOBIN 10.6 g/dl (13.5-17.5); MEAN CORPUSCULAR HGB CONC 32.2 g/dl (32.0-36.5); MEAN CORPUSCULAR VOLUME 96.2 fl (80.0-96.0); PLATELET COUNT, AUTOMATED 160 10^3/uL (150-450); RED BLOOD COUNT 3.42 10^6/uL (4.30-6.10); WHITE BLOOD COUNT 25.4 10^3/uL (4.0-10.0)
--- OUTSIDE RECORDS SUMMARY | 2021-01-23 12:40 | CCD ---
Author Author [facility] Organization [facility] Address Unknown Phone Unavailable Care Team Providers Care Data Security Administrator Name Role Phone Daniel La MD Unavailable Unavailable Daniel La MD Unavailable Unavailable Daniel La MD Unavailable Unavailable Daniel La MD Unavailable Unavailable Daniel La MD Unavailable Unavailable Daniel La MD Unavailable Unavailable Abriss B Alec GAY Unavailable Unavailable Abriss B Alec GAY Unavailable Unavailable Abriss B Alec GAY Unavailable Unavailable Abriss B Alec AGY Unavailable Unavailable Abriss B Alec GAY Unavailable Unavailable Abriss B Alec GAY Unavailable Unavailable Abriss B Alec GAY Unavailable Unavailable Abriss B Alec GAY Unavailable Unavailable Abrelio B Alec GAY Unavailable Unavailable Abriss B [...] Rader MD Unavailable Unavailable Fons, M Osiris CROWN POUNCER Unavailable Unavailable Fons, M Osiris CROWN POUNCER Unavailable Unavailable Fons, M Osiris CROWN POUNCER Unavailable Unavailable Fons, M Osiris CROWN POUNCER Unavailable Unavailable Fons, M Osiris CROWN POUNCER Unavailable Unavailable Fons, M Osiris CROWN POUNCER Unavailable Unavailable Fons, M Osiris CROWN POUNCER Unavailable Unavailable Fons, M Osiris CROWN POUNCER Unavailable Unavailable Fons, M Osiris CROWN POUNCER Unavailable Unavailable Fons, M Osiris CROWN POUNCER Unavailable Unavailable Fons, M Osiris CROWN POUNCER Unavailable Unavailable Fons, M Osiris CROWN POUNCER Unavailable Unavailable Fons, M Osiris CROWN POUNCER Unavailable Unavailable Fons, M Osiris CROWN POUNCER Unavailable Unavailable Fons, M Osiris CROWN POUNCER Unavailable Unavailable Fons, M Osiris CROWN POUNCER Unavailable Unavailable Fons, M Osiris CROWN POUNCER Unavailable Unavailable Fons, M Osiris CROWN POUNCER Unavailable Unavailable Fons, M Osiris CROWN POUNCER Unavailable Unavailable Fons, M Osiris CROWN POUNCER Unavailable Unavailable Fons, M Osiris CROWN POUNCER Unavailable Unavailable Fons, M Osiris CROWN POUNCER Unavailable Unavailable Fons, M Osiris CROWN POUNCER Unavailable Unavailable Fons, M Osiris CROWN POUNCER Unavailable Unavailable Fons, M Osiris CROWN POUNCER Unavailable Unavailable Fons, M Osiris CROWN POUNCER Unavailable Unavailable Fons, M Osiris CROWN POUNCER Unavailable Unavailable Fons, M Osiris CROWN POUNCER Unavailable Unavailable Fons, M Osiris CROWN POUNCER Unavailable Unavailable Fons, M Osiris CROWN POUNCER Unavailable Unavailable Fons, M Osiris CROWN POUNCER Unavailable Unavailable Fons, M Osiris CROWN POUNCER Unavailable Unavailable Fons, M Osiris CROWN POUNCER Unavailable Unavailable Fons, M Osiris CROWN POUNCER Unavailable Unavailable Fons, M Osiris CROWN POUNCER Unavailable Unavailable Fons, M Osiris CROWN POUNCER Unavailable Unavailable Fons, M Osiris CROWN POUNCER Unavailable Unavailable Fons, M Osiris CROWN POUNCER Unavailable Unavailable Fons, M Osiris CROWN POUNCER Unavailable Unavailable Fons, M Osiris CROWN POUNCER Unavailable Unavailable Fons, M Osiris CROWN POUNCER Unavailable Unavailable Fons, M Osiris CROWN POUNCER Unavailable Unavailable Fons, M Osiris CROWN POUNCER Unavailable Unavailable Fons, M Osiris CROWN POUNCER Unavailable Unavailable Fons, M Osiris CROWN POUNCER Unavailable Unavailable Fons, M Osiris CROWN POUNCER Unavailable Unavailable Fons, M Osiris CROWN POUNCER Unavailable Unavailable Fons, M Osiris CROWN POUNCER Unavailable Unavailable Fons, M Osiris CROWN POUNCER Unavailable Unavailable Fons, M Osiris CROWN POUNCER Unavailable Unavailable Fons, M Osiris CROWN POUNCER Unavailable Unavailable Fons, M Osiris CROWN POUNCER Unavailable Unavailable Fons, M Osiris CROWN POUNCER Unavailable Unavailable Vinnie Zhang MD Unavailable Unavailable [...] Unavailable Vinnie Zhang MD Unavailable Unavailable Vinnie Zahng MD Unavailable Unavailable Vinnie Zhang MD Unavailable [...] Unavailable Unavailable Bharat, Addis MD Unavailable Unavailable Hbarat, Addis MD Unavailable Unavailable Bharat, Addis MD [...] II, Hal PA Unavailable Unavailable Dipika II, Hla PA Unavailable Unavailable Dipika II, Hal PA [...] is protected by Article 27-F of the [facility] Public Health law. If you continue you may have access to information: Regarding HIV / AIDS; Provided by facilities licensed or operated by the [facility] Office of Mental Health; or Provided by the [facility] Office for People With Developmental Disabilities. If such information is present, then the following [facility] mandated warning applies: This information has [...] law may result in a fine or fdc sentence or both. A general authorization for the release of medical or other information is NOT sufficient authorization for further disc losure. Allergies and Adverse Reactions Type Description Substance Reaction Status Data Source(s ) Propensity to adverse reactions LATEX Latex Rash [facility] Prop[facility] to adverse [facility] History Family Member Name Family Member Gender Family Member Status Date o f Status Description Data Source(s) Unknown Unknown Problem MEDENT ([facility] Unknown Male Problem MEDENT ([facility]) Unknown Female Unknown Male Encounters Encounter Providers Location Date Indications Data Source(s ) Outpatient Attender: Addis Nicholson MDReferrer: Isai pickett MD 06/16/2021 12:00:[address] 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 Outpatient Attender: Isai Blair MD 01/06/2021 12:00: [address] [facility] Outpatient Attender: Isai Leal-ONCCACTR 12:00:00 AM EDT - 01/01/20[facility] Isai Leal-ONCCACTR 12:00:00 AM EDT - 12/26/2020 08:07:20 AM EDT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, nasal type [facility]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, nasal typ e Outpatient [facility] [facility] [address] 12/23/2020 12:00:00 AM EDT eCW1 ([facility]) Outpatient Attender: Isai Leal-ONCCACTR 12:00:00 AM EDT - 12/16/2020 03[facility]39[facility] [address] [facility] [address] 12/12/2020 12:00:00 AM EDT eCW1 ([facility]) Outpatient Attender: Isai Blair MDReferrer: Isai Blair MD 12/11/2020 12:00:[address] [facility] Outpatient Attender: Isai Blair MD 12/11/2020 12:00: [address] [facility] Outpatient Attender: Bryson Guzman PH.DAustin, MJorge Mariscal/Kimberly/Thanh camacho/Reinalexandra 12/09/2020 11:30:00 AM EDT [facility] ([facility] [place] [address] [facility] [address] 12/08/2020 12:00:00 AM EDT eCW1 ([facility]) Outpatient Attender: Isai Blair MDAdmitter: Junaid Leal-ONCCACTR 12/04/2020 12:00:00 AM EDT - 12/04/2020 11:47:[address] [facility] [place] [address] [facility] [address] 12/03/2020 12:00:00 AM EDT eCW1 ([facility]) Outpatient Attender: Bryson Guzman PH.Allan, MJorge Mariscal/Kimberly/A ngbarbara/Reinalexandra 12/02/2020 08:30:00 AM EDT MEDMEGAN ([facility] [place] [address] [facility] [address] 12/02/2020 12:00:00 AM EDT eCW1 ([facility]) Unknown [address] [facility] [address] 12/01/2020 12:00:00 AM EDT eCW1 ([facility]) Unknown [address] [facility] [address] 11/30/2020 12:00:00 AM EDT eCW1 ([facility]) Outpatient Attender: Bryson Guzman PH.D., M.D. Loida/Kimberly/Thanh camacho/Reinalexandra 11/19/2020 10:45:00 AM EDT MEDENT ([facility], ) Outpatient Admitter: Daniel La MDReferrer: Daniel La MD 11/11/2020 12:00:00 AM EDT Unspecified B-cell lymphoma, unspecified site [facility] Unspecified B-cell lymphoma, unspecified site Outpatient Attender: Alec Mariscal/Kimberly/Marty/Re indl 10/09/2020 10:30:00 AM EDT MEDENT ([facility], ) Outpatient Attender: Alec Mariscal/Kimberly/Marty/Re indl 09/22/2020 01:30:00 PM EDT MEDENT ([facility], ) Outpatient Attender: Osiris Barclay FNPReferrer: Osiris SIERRA 09/12/2020 02:15:18 PM EDT - 09/12/2020 03:16:06 PM EDT [facility] Outpatient Attender: Osiris Barclay FNPReferrer: Osiris SIERRA 09/12/2020 12:00:00 AM EDT - 09/12/2020 03:29:17 PM EDT [facility] Outpatient Attender: Walt Mariscal/Kimberly/Marty/R eindl 09/09/2020 10:30:00 AM EDT MEDENT ([facility], ) Unknown [address] [facility] [address] 09/05/2020 12:00:00 AM EDT eCW1 ([facility]) Outpatient Attender: Osiris VANG 10:22:45 AM EDT - 07/18/2020 11:47:40 AM EDT [facility] Office Visit Attender: Alec Mariscal/Blackwood/Marty/Re indl 07/04/2020 11:15:00 AM EDT MED[facility] ([facility] Outpatient Attender: Walt Mariscal/Blackwood/Marty/R eindl 06/26/2020 11:15:00 AM EDT MEDENT ([facility]) Office Visit Attender: Alec Mariscal/Blackwood/Marty/Re indl 06/19/2020 09:00:00 AM EDT MEDENT ([facility]) Office Visit Attender: Alec Mariscal/Blackwood/Marty/Re indl 06/11/2020 10:30:00 AM EDT MEDENT ([facility]) Unknown [address] [facility], [facility] [address] 06/05/2020 12:00:00 AM EDT eCW1 ([facility]) Office Visit, Est Pt., Level 5 PC [address] [place] [address] 06/05/2020 12:00:00 AM EDT eCW1 ([facility]) Outpatient Attender: Alec Mariscal/Kimberly/Marty/Re indl 05/20/2020 09:45:00 AM EST MEDENT ([facility]) Outpatient Attender: Alec Mariscal/Kimberly/Marty/Re indl 05/07/2020 09:15:00 AM EST MEDENT ([facility]) Outpatient Attender: Alec Mariscal/Kimberly/Marty/Re indl 04/01/2020 08:30:00 AM EST MEDENT ([facility]) Unknown [address] [facility], [facility] [address] 04/01/2020 12:00:00 AM EST eCW1 ([facility]) Unknown [address] [facility] [address] 03/11/2020 12:00:00 AM EST [facility] Unknown [address] [facility] [address] 03/10/2020 12:00:00 AM EST [facility]CW1 [facility] Outpatient Attender: ROMA ovalle 03/04/2020 04:00:00 PM EST [facility] ([facility] Outpatient [address] [facility] [address] 02/27/2020 12:00:00 AM EST eCW1 ([facility]) Outpatient Attender: Walt Mariscal/Kimberly/Kenny cristina 02/18/2020 08:45:00 AM EST MEDENT ([facility] Unknown [address] [facility], [facility] [address] 02/18/2020 12:00:00 AM EST eCW1 ([facility] Unknown [address] [facility] [address] 02/13/2020 12:00:00 AM EST [facility]CW1 ([facility] Outpatient [address] [facility] [address] 02/12/2020 12:00:00 AM EST [facility]CW1 [facility] Unknown [address] [facility] [place] [address] 01/28/2020 12:00:00 AM EST [facility]CW1 ([facility] Unknown [address] [facility] [place] [address] 01/28/2020 12:00:00 AM EST eCW1 ([facility]) Outpatient Attender: Osiris MCMANUS.EUGENE-SJZeeshan.EUGENE 0 12:00:00 AM EST - 01/15/2020 09:59:21 AM EST [facility], Est Pt., Level 3 PC [address] [place] [address] 01/01/2020 12:00:00 AM EDT eCW1 ([facility]) Unknown [address] [facility], [place] [address] 12/31/2019 12:00:00 AM EDT eCW1 ([facility]) Outpatient Attender: Walt Mariscal/Kimberly/Marty/Beverly cristina 12/27/2019 11:15:00 AM EDT MEDENT ([facility]) Immunizations Vaccine Date Status Description Data Source(s) influenza, recombinant, quadrIvalent,injectable, prese rvative free 12/23/2020 12:16:00 PM EDT completed eCW1 ([facility]) influenza, recombinant, quadrIvalent,injectable, prese rvative free 12/23/2020 12:16:00 PM EDT completed eCW1 ([facility]) COVID-19 VACCINE Julio 07/25/2020 12:00:00 AM EDT completed [facility] Vaccine Series Complete: YESThis Data wa s Submitted to [facility] Via [employer]. Medications Medication Brand Name Start Date Product [...] MOUTH EVERY 6 HOURS NEEDED SOLD: 12/25/2020 [facility] Alprazolam 0.25 MG Oral Tablet ALPRAZOLAM 12/18/2020 12:00:00 AM EDT tablet 14 TAKE ONE TABLET BY MOUTH TWICE A DAY NEEDED FOR ANXIETY FOR UP TO 7 DAYS MAXIMUM DAILY DOSE = 2 TAKE ONE TABLET BY MOUTH TWICE A DAY NEEDED FOR ANXIETY FOR UP TO 7 DAYS MAXIMUM DAILY DOSE = 2 SOLD: 12/18/2020 [facility] 200 mg 12/09/2020 12:00:00 AM EDT tablet 60 TAKE ONE TABLET BY MOUTH THREE TIMES A DAY FOR 2 DAYS THEN TWO TIMES A DAY TAKE ONE TABLET BY MOUTH THREE TIMES A DAY FOR 2 DAYS THEN TWO TIMES A DAY SOLD: 12/10/2020 [facility] voriconazole 200 MG Oral Tablet Voriconazole 200 MG Voricona zole 200 MG 12/02/2020 12:00:00 AM EDT active Voriconazole 200 MG eCW1 ([facility]) voriconazole 200 MG Oral Tablet Voriconazole 200 MG Voricona zole 200 MG 12/02/2020 12:00:00 AM EDT active Voriconazole 200 MG eCW1 ([facility]) voriconazole 200 MG Oral Tablet Voriconazole 200 MG Voricona zole 200 MG 12/02/2020 12:00:00 AM EDT active Voriconazole 200 MG eCW1 ([facility]) 10 mg 10/10/2020 12:00:00 AM EDT tablet [...] 10/10/2020 12:00:00 AM EDT ORAL completed MEDENT ([facility], ) 250 mg 10/09/2020 12:00:00 AM EDT tablet 14 TAKE ONE TABLET BY MOUTH EVERY DAY FOR 14D AYS TAKE ONE TABLET BY MOUTH EVERY DAY FOR 14D AYS SOLD: [facility] Levofloxacin 250 MG Oral Tablet Levofloxacin 10/09/2020 12:00:00 AM E DT ORAL completed MEDENT ([facility], ) 250 mg 10/09/2020 12:00:00 AM [...] 12:00: 00 AM EDT ORAL completed MEDENT ([facility], ) Mupirocin 20 MG/ML Topical Cream Mupirocin Calcium 09/22/2020 12:00 :00 AM EDT completed MEDENT ([facility], ) 25 mg 09/17/2020 12:00:00 AM EDT [...] tablet (12.5 mg total) by mouth daily [facility] Hypertension, essential Simvastatin 40 MG Oral Tablet simvastatin (ZOCOR) 40 M G tablet simvastatin (ZOCOR) 40 MG tablet 09/04/2020 12:00:00 AM EDT active TAKE ONE TABLET BY MOUTH NIGHTLY [facility] Cefuroxime 500 MG Oral Tablet Cefuroxime Axetil 08/21/2020 12:00:00 A M EDT ORAL completed MEDENT ([facility], ) Prednisone 10 MG Oral Tablet Prednisone 08/21/2020 12:00:00 AM EDT ORAL completed MEDENT ([facility], ) 10 mg 08/21/2020 12:00:00 AM EDT [...] CPAP 07/18/2020 12:00:00 AM EDT active MEDENT ([facility], ) Lisinopril 40 MG Oral Tablet lisinopril (PRINIVIL,ZEST RIL) 40 MG tablet lisinopril (PRINIVIL,ZESTRIL) 40 MG tablet 06/18/2020 12:00:00 AM EDT active Hypertension, essential TAKE ONE TABLET BY MOUTH DAILY [facility] Hypertension, essential 20 mg 05/20/2020 12:00:00 AM EST tablet 14 TAKE ONE TABLET BY MOUTH TWICE A DAY FOR 7 DAYS PRIOR TO SURGERY TAKE ONE TABLET BY MOUTH TWICE A DAY FOR 7 DAYS PRIOR TO SURGERY SOLD: 05/28/2020 [facility] Prednisone 20 MG Oral Tablet Prednisone 05/20/2020 12:00:00 AM EST ORAL completed MEDENT ([facility], ) 875-125 mg 05/20/2020 12:00:00 AM EST [...] BY MOUTH TWICE A DAY SOLD: 04/01/2020 [facility] Amoxicillin 875 MG / Clavulanate 125 MG Oral Tablet Am oxicillin/Clavulanate Potassium 04/01/2020 12:00:00 AM EST ORAL completed MEDENT ([facility], ) Amoxicillin 500 MG / Clavulanate 125 MG Oral Tablet [Augment in] Augmentin 03/16/2020 12:00:00 AM EST ORAL completed MEDENT ([facility], ) 500-125 mg 03/16/2020 12:00:00 AM EST tablet 20 TAKE ONE TABLET BY MOUTH TWICE A DAY FOR 10 DAYS TAKE ONE TABLET BY MOUTH TWICE A DAY FOR 10 DAYS SOLD: 03/17/2020 [facility] Aspir-Low 81 MG UNK 03/11/2020 12:00:00 AM EST 1.0 {tablet} active Aspir-Low 81 MG eCW1 ([facility]) 10 mg 03/11/2020 12:00:00 AM EST tablet [...] 03/11/2020 12:00:00 AM EST ORAL completed MEDENT ([facility] ) Aspir-Low 81 MG UNK 03/11/2020 12:00:00 AM EST 1.0 {tablet} active Aspir-Low 81 MG eCW1 ([facility]) Aspir-Low 81 MG UNK 03/11/2020 12:00:00 AM EST 1.0 {tablet} active Aspir-Low 81 MG eCW1 ([facility]) Aspir-Low 81 MG UNK 03/11/2020 12:00:00 AM EST 1.0 {tablet} active Aspir-Low 81 MG eCW1 ([facility]) Prednisone 20 MG Oral Tablet Prednisone 03/04/2020 12:00:00 AM EST active MEDENT ([facility]) 20 mg 03/04/2020 12:00:00 AM EST tablet 10 TAKE ONE TABLET BY MOUTH TWICE A DAY FOR 5 DAYS TAKE ONE TABLET BY MOUTH TWICE A DAY FOR 5 DAYS SOLD: 2019 [facility] Doxycycline Monohydrate 100 MG Oral Capsule Doxycycline [place] hydrate 100 MG 02/18/2020 12:00:00 AM EST 1.0 {capsule} active Doxycycline Monohydrate 100 MG eCW1 ([facility]) Doxycycline Monohydrate 100 MG Oral Capsule Doxycycline [place] hydrate 100 MG 02/18/2020 12:00:00 AM EST 1.0 {capsule} suspend ed Doxycycline Monohydrate 100 MG eCW1 ([facility]) Doxycycline Monohydrate 100 MG Oral Capsule Doxycycline [place] hydrate 100 MG 02/18/2020 12:00:00 AM EST 1.0 {capsule} active Doxycycline Monohydrate 100 MG eCW1 ([facility]) Doxycycline Monohydrate 100 MG Oral Capsule Doxycycline [place] hydrate 100 MG 02/18/2020 12:00:00 AM EST 1.0 {capsule} suspend ed Doxycycline Monohydrate 100 MG eCW1 ([facility]) Doxycycline Monohydrate 100 MG Oral Capsule Doxycycline [place] hydrate 100 MG 02/18/2020 12:00:00 AM EST 1.0 {capsule} active Doxycycline Monohydrate 100 MG eCW1 ([facility]) Doxycycline Monohydrate 100 MG Oral Capsule Doxycycline [place] hydrate 100 MG 02/18/2020 12:00:00 AM EST 1.0 {capsule} active Doxycycline Monohydrate 100 MG eCW1 ([facility]) Doxycycline Monohydrate 100 MG Oral Capsule Doxycycline [place] hydrate 100 MG 02/18/2020 12:00:00 AM EST 1.0 {capsule} active Doxycycline Monohydrate 100 MG eCW1 ([facility]) Doxycycline Monohydrate 100 MG Oral Capsule Doxycycline [place] hydrate 100 MG 02/18/2020 12:00:00 AM EST 1.0 {capsule} active Doxycycline Monohydrate 100 MG eCW1 ([facility]) 100 mg 02/18/2020 12:00:00 AM EST capsule 20 TAKE ONE CAPSULE BY MOUTH TWICE A DAY FOR 10 DAYS TAKE ONE CAPSULE BY MOUTH TWICE A DAY FOR 10 DAYS SOLD : 02/23/2020 [facility] Doxycycline Monohydrate 100 MG Oral Capsule Doxycycline [place] hydrate 100 MG 02/18/2020 12:00:00 AM EST 1.0 {capsule} active Doxycycline Monohydrate 100 MG eCW1 ([facility]) Doxycycline Monohydrate 100 MG Oral Capsule Doxycycline [place] hydrate 100 MG 02/18/2020 12:00:00 AM EST 1.0 {capsule} active Doxycycline Monohydrate 100 MG eCW1 ([facility]) Doxycycline Monohydrate 100 MG Oral Capsule Doxycycline [place] hydrate 100 MG 02/18/2020 12:00:00 AM EST 1.0 {capsule} active Doxycycline Monohydrate 100 MG eCW1 ([facility]) Doxycycline Monohydrate 100 MG Oral Capsule Doxycycline [place] hydrate 100 MG 02/18/2020 12:00:00 AM EST 1.0 {capsule} active Doxycycline Monohydrate 100 MG eCW1 ([facility]) Doxycycline Monohydrate 100 MG Oral Capsule Doxycycline [place] hydrate 100 MG 02/18/2020 12:00:00 AM EST 1.0 {capsule} active Doxycycline Monohydrate 100 MG eCW1 ([facility]) Doxycycline Monohydrate 100 MG Oral Capsule Doxycycline [place] hydrate 100 MG 02/18/2020 12:00:00 AM EST 1.0 {capsule} suspend ed Doxycycline Monohydrate 100 MG eCW1 ([facility]) Sulfamethoxazole 800 MG / Trimethoprim 160 MG [...] Bactrim DS 800-160 MG eCW1 ( [facility]) Trazodone Hydrochloride 50 MG Oral Tablet traZODone HC l 50 MG traZODone HCl 50 MG 01/28/2020 12:00:00 AM EST 1.0 {tablet_at_bedtime_as_needed} active traZODone HCl 50 MG eCW1 ([facility]) Trazodone Hydrochloride 50 MG Oral Tablet TraZODone HC l 50 MG TraZODone HCl 50 MG 01/28/2020 12:00:00 AM EST 1.0 {tablet_at_bedtime_as_needed} active TraZODone HCl 50 MG eCW1 ([facility]) Trazodone Hydrochloride 50 MG Oral Tablet traZODone HC l 50 MG traZODone HCl 50 MG 01/28/2020 12:00:00 AM EST 1.0 {tablet_at_bedtime_as_needed} active traZODone HCl 50 MG eCW1 ([facility]) Trazodone Hydrochloride 50 MG Oral Tablet TraZODone HC l 50 MG TraZODone HCl 50 MG 01/28/2020 12:00:00 AM EST 1.0 {tablet_at_bedtime_as_needed} active TraZODone HCl 50 MG eCW1 ([facility]) Trazodone Hydrochloride 50 MG Oral Tablet traZODone HC l 50 MG traZODone HCl 50 MG 01/28/2020 12:00:00 AM EST 1.0 {tablet_at_bedtime_as_needed} active traZODone HCl 50 MG eCW1 ([facility]) Trazodone Hydrochloride 50 MG Oral Tablet TraZODone HC l 50 MG TraZODone HCl 50 MG 01/28/2020 12:00:00 AM EST 1.0 {tablet_at_bedtime_as_needed} active TraZODone HCl 50 MG eCW1 ([facility]) Trazodone Hydrochloride 50 MG Oral Tablet TraZODone HC l 50 MG TraZODone HCl 50 MG 01/28/2020 12:00:00 AM EST 1.0 {tablet_at_bedtime_as_needed} active TraZODone HCl 50 MG eCW1 ([facility]) Trazodone Hydrochloride 50 MG Oral Tablet traZODone HC l 50 MG traZODone HCl 50 MG 01/28/2020 12:00:00 AM EST 1.0 {tablet_at_bedtime_as_needed} active traZODone HCl 50 MG eCW1 ([facility]) Trazodone Hydrochloride 50 MG Oral Tablet TraZODone HC l 50 MG TraZODone HCl 50 MG 01/28/2020 12:00:00 AM EST 1.0 {tablet_at_bedtime_as_needed} active TraZODone HCl 50 MG eCW1 ([facility]) Trazodone Hydrochloride 50 MG Oral Tablet traZODone HC l 50 MG traZODone HCl 50 MG 01/28/2020 12:00:00 AM EST 1.0 {tablet_at_bedtime_as_needed} active traZODone HCl 50 MG eCW1 ([facility]) Trazodone Hydrochloride 50 MG Oral Tablet TraZODone HC l 50 MG TraZODone HCl 50 MG 01/28/2020 12:00:00 AM EST 1.0 {tablet_at_bedtime_as_needed} active TraZODone HCl 50 MG eCW1 ([facility]) Trazodone Hydrochloride 50 MG Oral Tablet TraZODone HC l 50 MG TraZODone HCl 50 MG 01/28/2020 12:00:00 AM EST 1.0 {tablet_at_bedtime_as_needed} active TraZODone HCl 50 MG eCW1 ([facility]) Trazodone Hydrochloride 50 MG Oral Tablet TraZODone HC l 50 MG TraZODone HCl 50 MG 01/28/2020 12:00:00 AM EST 1.0 {tablet_at_bedtime_as_needed} active TraZODone HCl 50 MG eCW1 ([facility]) Trazodone Hydrochloride 50 MG Oral Tablet traZODone HC l 50 MG traZODone HCl 50 MG 01/28/2020 12:00:00 AM EST 1.0 {tablet_at_bedtime_as_needed} active traZODone HCl 50 MG eCW1 ([facility]) Trazodone Hydrochloride 50 MG Oral Tablet traZODone HC l 50 MG traZODone HCl 50 MG 01/28/2020 12:00:00 AM EST 1.0 {tablet_at_bedtime_as_needed} active traZODone HCl 50 MG eCW1 ([facility]) Trazodone Hydrochloride 50 MG Oral Tablet TraZODone HC l 50 MG TraZODone HCl 50 MG 01/28/2020 12:00:00 AM EST 1.0 {tablet_at_bedtime_as_needed} active TraZODone HCl 50 MG eCW1 ([facility]) Trazodone Hydrochloride 50 MG Oral Tablet TraZODone HC l 50 MG TraZODone HCl 50 MG 01/28/2020 12:00:00 AM EST 1.0 {tablet_at_bedtime_as_needed} active TraZODone HCl 50 MG eCW1 ([facility]) Trazodone Hydrochloride 50 MG Oral Tablet TraZODone HC l 50 MG TraZODone HCl 50 MG 01/28/2020 12:00:00 AM EST 1.0 {tablet_at_bedtime_as_needed} active TraZODone HCl 50 MG eCW1 ([facility]) Trazodone Hydrochloride 50 MG Oral Tablet traZODone HC l 50 MG traZODone HCl 50 MG 01/28/2020 12:00:00 AM EST 1.0 {tablet_at_bedtime_as_needed} active traZODone HCl 50 MG eCW1 ([facility]) Simvastatin 40 MG Oral Tablet simvastatin (ZOCOR) 40 M G tablet simvastatin (ZOCOR) 40 MG tablet 01/09/2020 12:00:00 AM EDT 40 mg Oral aborted Take 1 tablet (40 mg total) by mouth nightly [facility] Levofloxacin 500 MG Oral Tablet Levofloxacin 500 MG 01/01/2020 1 2:00:00 AM EDT 1.0 {tablet} active Levofloxaci n 500 MG eCW1 ([facility]) Levofloxacin 500 MG Oral Tablet Levofloxacin 500 MG 01/01/2020 1 2:00:00 AM EDT 1.0 {tablet} active Levofloxaci n 500 MG eCW1 ([facility]) 500 mg 01/01/2020 12:00:00 AM EDT tablet 10 TAKE ONE TABLET BY MOUTH EVERY DAY FOR 10 DAYS TAKE ONE TABLET BY MOUTH EVERY DAY FOR 10 DAYS SOLD: [facility] Levofloxacin 500 MG Oral Tablet Levofloxacin 500 MG 01/01/2020 1 2:00:00 AM EDT 1.0 {tablet} active Levofloxaci n 500 MG eCW1 ([facility]) Levofloxacin 500 MG Oral Tablet Levofloxacin 500 MG 01/01/2020 1 2:00:00 AM EDT 1.0 {tablet} suspended Levofloxa analia 500 MG eCW1 ([facility]) Levofloxacin 500 MG Oral Tablet Levofloxacin 500 MG 01/01/2020 1 2:00:00 AM EDT 1.0 {tablet} active Levofloxaci n 500 MG eCW1 ([facility]) Cefuroxime 500 MG Oral Tablet Cefuroxime Axetil 12/27/2019 12:00:00 A M EDT ORAL completed MEDENT ([facility]) 500 mg 12/27/2019 12:00:00 AM EDT tablet 20 TAKE ONE TABLET BY MOUTH TWICE A DAY WITH FOOD UNTIL GONE TAKE ONE TABLET BY MOUTH TWICE A DAY WIT H FOOD UNTIL GONE SOLD: 12/28/2019 Enriqueta Walls s Amoxicillin 875 MG / Clavulanate 125 MG Oral Tablet Am oxicillin/Clavulanate Potassium 11/20/2019 12:00:00 AM EDT ORAL completed MEDENT ([facility], ) Lisinopril 40 MG Oral Tablet lisinopril (PRINIVIL,ZEST RIL) 40 MG tablet lisinopril (PRINIVIL,ZESTRIL) 40 MG tablet 08/20/2019 12:00:00 AM EDT 40 mg Oral aborted Hypertension, essential T uli 1 tablet (40 mg total) by mouth daily [facility] Hypertension, essential Hydrochlorothiazide 12.5 MG Oral Tablet hydrochlorothiazide (HYDRODIURIL) 12.5 MG tablet hydrochlorothiazide (HYDRODIURIL) 12.5 MG tablet 08/06 12:00:00 AM EDT 12.5 mg Oral aborted Hypertension, essential Take 1 tablet (12.5 mg total) by mouth daily [facility] Hypertension, essential doxycycline hyclate 100 MG Oral Tablet DOXYCYCLINE HYCLATE 0 06/19/2019 12:00:00 AM EDT tablet 60 TAKE ONE TABLET BY MOUTH TWI CE A DAY TAKE ONE TABLET BY MOUTH TWICE A DAY SOLD: 02/14/2020 Enriqueta Walls s Insurance Providers Payer name Policy type / Coverage type Policy ID Covered republican ID Covered republican's relationship to walsh Policy [place] Plan Information [employer] [id number] SP [id number] [employer] PPO 2 [id number] Tpa/[place] Eff () Workers Compensation [id number] Self [id number] [employer] ([place]) Workers Compensation [id number] Self UMR U [id number] Self [id number] UMR [id number] MEDICARE [id number] xxxxxxxxxxx [id number] UMR [id number] Fabi [id number] MEDICARE [id number] Fabi [id number] MEDICARE A [id number] Self [id number] [id number] [employer] (pr) Commercial [id number] Self [employer] PPO O [id number] S [id number] [employer] Commercial [id number] Self [employer] [id number] SELF PAY 2 UNAVAILABLE 1 UNAVAILA BLE Umr Commercial [id number] Self [id number] MEDICARE [id number] SP [id number] SELF PAY ONLY [id number] SP [id number] UMR O [id number] S [id number] MEDICARE C [id number] S [id number] Umr/[facility]/[employer] Medigap Part B [id number] Self [id number] Medicare Natl Gov't Servi Medicare Primary [id number] Self [id number] [employer] Medigap Part B [id number] Self [id number] R [facility] [id number] SP [id number] [place] Medicare Primary [id number] 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, unspecified site Unspecified B-cell lymphoma, unspecified site Diagnosis 11/11/2020 12:00:00 PM EDT [facility] I10 Essential (primary) hypertension Essential (primary) h ypertension Diagnosis 09/12/2020 02:21:30 PM EDT [facility] R60.9 Edema, unspecified Edema, unspecified Diagnosis 04/2020 02:21:30 PM EDT [facility] R06.00 Dyspnea, unspecified Dyspnea, unspecified Diagnosis 09/12/2020 02:21:30 PM EDT [facility] I25.10 Atherosclerotic heart diseas e of [place] coronary artery without angina pectoris Atherosclerotic heart disease of [place] Diagnosis 09/12/2020 02:21:30 PM EDT [facility] 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, unspecif ied Rheumatic mitral valve disease, unspecif Diagnosis 09/12/2020 02:15:18 PM EDT [facility] E78.2 Mixed hyperlipidemia Mixed hyperlipidemia Diagnosis 07/18/2020 10:22:45 AM EDT [facility] Z95.5 Presence of coronary angioplasty implant and graft Presence of coronary angioplasty implant Diagnosis 07/18/2020 10:22:45 AM EDT [facility] R60.0 Localized edema Localized edema Diagnosis 07/18/2020 10:2 2:45 AM EDT [facility] Z23 [id number] Encounter for immunization Problem 12:00:00 AM EDT eCW1 ([facility]) G47.33 [id number] Obstructive sleep apnea Problem 12/02/2020 1 2:00:00 AM EDT eCW1 ([facility]) I25.10 [id number] Coronary artery dise ase involving [place] coronary artery of [place] heart without angina pectoris Problem 12/02/2020 12:00:00 AM EDT eCW1 ([facility]) 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 Problem 12/02/2020 12:00:00 AM EDT eCW1 ([facility]) B44.9 [id number] Aspergillosis Problem 12/02/2020 12:00:00 AM EDT eCW1 ([facility]) J32.0 [id number] Chronic maxillary sinusitis Problem 12/03/19 12:00:00 AM EDT eCW1 ([facility]) C85.91 [id number] Lymphoma of lymph nodes of head, unspecified lymphoma type Problem 12/02/2020 12:00:00 AM EDT eCW1 ([facility]) 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 Chronic fronto ethmoidal sinusitis Problem 11/19/2020 12:00:00 AM EDT MEDMEGAN ([facility]) Z95.1 Hx of CABG Hx of CABG [id number] 07/18/2020 12:00:00 AM ED T [facility] J47.9 [id number] Recurrent bronchiectasis Problem 06/05/2020 12:00:00 AM EDT eCW1 ([facility]) R73.01 [id number] IFG (impaired fasting glucose) Problem 06/05/2020 12:00:00 AM EDT eCW1 ([facility]) G47.33 [id number] BALAJI (obstructive sleep apnea) Problem 06/05/2020 12:00:00 AM EDT eCW1 ([facility]) J32.9 [id number] Chronic sinusitis, unspecified Problem 03/10/2020 12:00:00 AM EST eCW1 ([facility]) R79.89 [id number] Elevated LFTs Problem 02/27/2020 12:00:00 AM EST eCW1 ([facility]) Z12.11 [id number] Colon cancer screening Problem 02/19/2020 12 :00:00 AM EST eCW1 ([facility]) J32.1 [id number] Chronic frontal sinusitis Problem 02/12/2020 12:00:00 AM EST eCW1 ([facility]) J32.9 Chronic sinusitis Rhinosinusitis Problem 01/01/2020 12: 00:00 AM EDT eCW1 ([facility]) Surgeries/Procedures Procedure Description Date Indications Data Source(s) OFFICE OUTPATIENT VISIT 15 MINUTES 01/08/2021 12:00:00 AM EDT MEDENT ([facility], ) Imm: Flublok Quadrivalent 18 years & older 0.5mL IM Influenz a 12/23/2020 12:00:00 AM EDT eCW1 ([facility]) Endoscopy Nasal/Sinus Surgical W/BX/Polypectomy/Debridement 12/09/2020 12:00:00 AM EDT MEDENT ([facility]) OFFICE OUTPATIENT VISIT 15 MINUTES 12/09/2020 12:00:00 AM EDT MEDENT ([facility]) Endoscopy Nasal/Sinus Surgical W/BX/Polypectomy/Debridement 12/02/2020 12:00:00 AM EDT MEDENT ([facility]) OFFICE OUTPATIENT VISIT 15 MINUTES 12/02/2020 12:00:00 AM EDT MEDENT ([facility]) Endoscopy Nasal/Sinus Surgical W/BX/Polypectomy/Debridement 11/19/2020 12:00:00 AM EDT MEDENT ([facility]) OFFICE OUTPATIENT VISIT 25 MINUTES 11/19/2020 12:00:00 AM EDT MEDENT ([facility]) Endoscopy Nasal Diagnostic 11/11/2020 12:00:00 AM EDT MEDENT ([facility]) Endoscopy Nasal Diagnostic 10/27/2020 12:00:00 AM EDT MEDENT ([facility]) Spirometry 10/10/2020 12:00:00 AM EDT M EDENT ([facility]) Plethysmography Determination Lung Volumes & Per Airway Resi st 10/10/2020 12:00:00 AM EDT MEDENT ([facility]) DIFFUSING CAPACITY 10/10/2020 12:00:00 AM EDT MEDENT ([facility]) OFFICE OUTPATIENT VISIT 15 MINUTES 10/09/2020 12:00:00 AM EDT MEDENT ([facility]) Endoscopy Nasal Diagnostic 09/22/2020 12:00:00 AM EDT MEDENT ([facility]) OFFICE OUTPATIENT VISIT 25 MINUTES 09/22/2020 12:00:00 AM EDT MEDENT ([facility]) Spirometry 09/09/2020 12:00:00 AM EDT M EDENT ([facility]) OFFICE OUTPATIENT VISIT 25 MINUTES 09/09/2020 12:00:00 AM EDT MEDENT ([facility]) OFFICE OUTPATIENT VISIT 15 MINUTES 06/26/2020 12:00:00 AM EDT MEDENT ([facility]) Septoplasty/Submucous Resection Contour Or Replacement W/Gra ft 06/09/2020 12:00:00 AM EDT MEDENT ([facility]) Endoscopy Nasal/Sinus Surgical W/ Ethmoidectomy Total 06/09/2020 12:00:00 AM EDT MEDENT ([facility]) Endoscopy Nasal/Sinus Surgical Remove Tissue From Maxillary Sinus 06/09/2020 12:00:00 AM EDT MEDENT ([facility]) OFFICE OUTPATIENT VISIT 15 MINUTES 05/20/2020 12:00:00 AM EST MEDENT ([facility]) BIOPSY INTRANASAL 05/12/2020 12:00:00 AM EST MEDENT ([facility]) OFFICE OUTPATIENT VISIT 25 MINUTES 05/07/2020 12:00:00 AM EST MEDENT ([facility]) Endoscopy Nasal Diagnostic 04/01/2020 12:00:00 AM EST MEDENT ([facility]) OFFICE OUTPATIENT NEW 45 MINUTES 04/01/2020 12:00:00 A M EST MEDENT ([facility]) Results ID Date Data Source [id number] 01/15/2021 09:19:41 AM EDT [facility] Name Value Range Interpretation Code Description Data Kayley rce(s) Supporting Document(s) Leukocytes [#/volume] in Blood by Automated count 9.7 10*3/uL 4-10 [facility] Erythrocytes [#/volume] in Blood by Automated count 3.41 10*6/uL 4.6- 6.1 L [facility] Hemoglobin [Mass/volume] in Blood 10.9 g/dL 13.5-18 L [facility] Hematocrit [Volume Fraction] of Blood by Automated count 32.3 % 4 1-53 L [facility] Erythrocyte mean corpuscular volume [Entitic volume] by Auto mated count 94.8 fL 80-96 [facility] Erythrocyte mean corpuscular hemoglobin [Entitic mass] by Automated count 31.8 pg 27-33 [facility] Erythrocyte mean corpuscular hemoglobin concentration [Mass/volume] by Automated count 33.6 g/dL 32.0-36.0 [facility] distribution width [Ratio] by Automated count 13.9 % 11.5-14.5 [facility] Platelets [#/volume] in Blood by Automated count 342 10*3/uL 150-400 [facility] Differential cell count method - Blood [facility] Neutrophils/100 leukocytes in Blood by Automated count 65 % [facility] Lymphocytes/100 leukocytes in Blood by Automated count 17 % [facility] Monocytes/100 leukocytes in Blood by Automated count 17 % [facility] Eosinophils/100 leukocytes in Blood by Automated count 0 % [facility] Basophils/100 leukocytes in Blood by Automated count 1 % [facility] Neutrophils [#/volume] in Blood by Automated count 6.44 10*3/uL 1.8-7 .0 [facility] Lymphocytes [#/volume] in Blood by Automated count 1.60 10*3/uL 1.2-4 .0 [facility] Monocytes [#/volume] in Blood by Automated count 1.61 10*3/uL 0-0.8 H [facility] Eosinophils [#/volume] in Blood by Automated count 0.00 10*3/uL 0-0.5 [facility] Basophils [#/volume] in Blood by Automated count 0.05 10*3/uL 0-0.2 [facility] Nucleated erythrocytes/100 leukocytes [Ratio] in Blood by Automated count 0 /100{WBCs} 0-0 [facility] ID Date Data Source [id number] 01/15/2021 09:48:[address] [facility] Name Value Range Interpretation Code Description Data Kayley rce(s) Supporting Document(s) Prothrombin time (PT) 13.3 s 11.6-14.0 [facility] INR in Platelet poor plasma by Coagulation assay 1.05 [facility] Routine intensity oral anticoagulation I NR is typically 2.0-3.0. Target INR must be clinically individualized. ID Date Data Source [id number] 01/15/2021 10:16:25 AM [facility] Value Range Interpretation Code Description Data Kayley rce(s) Supporting Document(s) Amylase [Enzymatic activity/volume] in Serum or Plasma 77 U/L 28- 103 [facility] ID Date Data Source [id number] 01/15/2021 10:16:25 AM [facility] Value Range Interpretation Code Description Data Kayley rce(s) Supporting Document(s) Lipase [Enzymatic activity/volume] in Serum or Plasma 83 U/L 13-6 0 H [facility] ID Date Data Source [id number] 01/15/2021 10:16:25 AM [facility] Value Range Interpretation Code Description Data Kayley rce(s) Supporting Document(s) Albumin [Mass/volume] in Serum or Plasma by Bromocresol green (BCG) dye binding method 3.9 g/dL 3.5-5.2 [facility] Bilirubin.total [Mass/volume] in Serum or Plasma 0.3 mg/dL <1.2 [facility] Calcium [Mass/volume] in Serum or Plasma 8.5 mg/dL 8.8-10.2 L [facility] Chloride [Moles/volume] in Serum or Plasma 99 mmol/L 98-107 [facility] Creatinine [Mass/volume] in Serum or Plasma 0.87 mg/dL 0.70-1.20 [facility] Glucose [Mass/volume] in Serum or Plasma 107 mg/dL 70-140 [facility] Alkaline phosphatase [Enzymatic activity/volume] in Serum or Plasma 107 U/L 40-129 [facility] Potassium [Moles/volume] in Serum or Plasma 4.5 mmol/L 3.4-5.1 [facility] Protein [Mass/volume] in Serum or Plasma 6.4 g/dL 6.4-8.3 [facility] Sodium [Moles/volume] in Serum or Plasma 137 mmol/L 136-145 [facility] Aspartate aminotransferase [Enzymatic activity/volume] in Serum or Plasma 33 U/L <40 [facility] Urea nitrogen [Mass/volume] in Serum or Plasma 8 mg/dL 8-23 [facility] Osmolality of Serum or Plasma by calculation 283 mosm/kg 275-300 [facility] Creatinine/Urea nitrogen [Mass Ratio] in Serum or Plasma 9 [facility] Bicarbonate [Moles/volume] in Serum 28 mmol/L 22-29 [facility] Alanine aminotransferase [Enzymatic activity/volume] in Seru m or Plasma 38 U/L <41 [facility] Anion gap 3 in Serum or Plasma 10 mmol/L 8-15 [facility] Glomerular filtration rate/1.73 sq M pre dicted among non-blacks [Volume Rate/Area] in Serum or Plasma by Creatinine-based formula (MDRD) 87 mL/min/1.73m2 >60 [facility] Glomerular filtration rate/1.73 sq M pre dicted among blacks [Volume Rate/Area] in Serum or Plasma by Creatinine-based formula (MDRD) >60 [facility] ID Date Data Source [id number] 01/15/2021 10:16:25 AM [facility] Value Range Interpretation Code Description Data Kayley rce(s) Supporting Document(s) Triglyceride [Mass/volume] in Serum or Plasma 81 mg/dL <150 [facility] ID Date Data Source [id number] 01/15/2021 10:16:25 AM [facility] Value Range Interpretation Code Description Data Kayley rce(s) Supporting Document(s) Thyrotropin [Units/volume] in Serum or Plasma 0.750 u[IU]/mL 0.270-4. 200 [facility] ID Date Data Source [id number] 01/08/2021 05:22:53 PM [facility] Value Range Interpretation Code Description Data Kayley rce(s) Supporting Document(s) Progress Note [facility] LVNFPj2eAfWTZwQu68/YNAgrGUAnm2RxXYvbPEb9HQnkBSBpQ5VaHIT6cJ1lKQN0RQaMWjHfCyNqIRE5 lbm [file] AgICAgICAgICAgICAgICAgICAgICAgICAgICAgICAgICAgICAgICAgICAgICAgICAgICAgICAgICAgIC AgICAgICAgICAgICAgICAgICAgICAgICAgICAgDQogICAgICAgICAgICAgICAgICAgICAgICAgICAgIC AgICAgICAgICAgICAgICAgICAgICAgICAgICAgICAg ICAgICAgICAgICAgICAgICAgICAgICAgICAgICAgICAgICAgICAgDQogICAgICAgICAgICAgICAgICAg ICAgICAgICAgICAgICAgICAgICAgICAgICAgICAgICAgICAgICAgICAgICAgICAgICAgICAgICAgICAg ICAgICAgICAgICAgICAgICAgICAgDQogICAgICAgIC AgICAgICAgICAgICAgICAgICAgICAgICAgICAgICAgICAgICAgICAgICAgICAgICAgICAgICAgICAgIC AgICAgICAgICAgICAgICAgICAgICAgICAgICAgICAgDQogICAgICAgICAgICAgICAgICAgICAgICAgIC AgICAgICAgICAgICAgICAgICAgICAgICAgICAgICAg ICAgICAgICAgICAgICAgICAgICAgICAgICAgICAgICAgICAgICAgICAgDQogICAgICAgICAgICAgICAg ICAgICAgICAgICAgICAgICAgICAgICAgICAgICAgICAgICAgICAgICAgICAgICAgICAgICAgICAgICAg ICAgICAgICAgICAgICAgICAgICAgICAgDQogICAgIC AgICAgICAgICAgICAgICAgICAgICAgICAgICAgICAgICAgICAgICAgICAgICAgICAgICAgICAgICAgIC AgICAgICAgICAgICAgICAgICAgICAgICAgICAgICAgICAgDQogICAgICAgICAgICAgICAgICAgICAgIC AgICAgICAgICAgICAgICAgICAgICAgICAgICAgICAg ICAgICAgICAgICAgICAgICAgICAgICAgICAgICAgICAgICAgICAgICAgICAgDQogICAgICAgICAgICAg ICAgICAgICAgICAgICAgICAgICAgICAgICAgICAgICAgICAgICAgICAgICAgICAgICAgICAgICAgICAg ICAgICAgICAgICAgICAgICAgICAgICAgICAgDQogIC AgICAgICAgICAgICAgICAgICAgICAgICAgICAgICAgICAgICAgICAgICAgICAgICAgICAgICAgICAgIC PwGHJoMOAwXTNoDOMdBHTlIPImYBOyMAKkARUrWNOuMONeJDOqUEj9Q1nnVUZgELGfIJ1iKZm9Jr5+DQ nURvIxFZR2foLxvQ6OWF8sl3PfZHkwHHMgw1SyGKa7 FD8DGOJbSJxrMH2KPAoojt1QMVOkOUZzvWNHe4vvQbElZYQ2KVIhXiagQK6KDDMnU1wyalIrIMJjDPRJ YMgmQVISTEEuITWrJjIiPwIxAIOhFSEjCAZANFK9UKKdLpMwMUgbGO2Fy4YbtZK7FIr+Zt0XUW7cu9Ef IPyhANRhFN5esd7QNCfWVwXnZ3NbblC0OPD5ZHHhJo 0ZIKWcMWDmwRTkORBaLJBRPiVxB5UujI52OMHKAm7+WDgszrEdFmxGLtW2UQBwo5FpRUp0RE2UDVChZH m4wLQkUVIlV9Soo9BtUc70MOTbDbqqTuruj0fuytAxSXRfpDcsNXfeTRGfVOIzMMPoJnlkFwJjSNCpRm wcGPSXYSyKPiGeA6Sar6YxRaC8MGPpDxKqCInkNQFi YfT1CE79vQuvIP0DTKGhDWOcWO43RAV5NXXhMk7VOd6SGgTcWI7cki0PGwWqCG9uzt6TMDeGHuBbN9K1 cMEtC0Slhx03RY4QcXR9yKUgJQ8RnW2pEM8Qn3LaNCNjRvGaZGQdFDQvWTEqQACuVcXkOK5CDGIbPfUw qGZwVSKwSykiSPRrHzZtKnRcYY7FQAAvALI1OM6WJO 4XZfuyW0KOGPezeKoqZlHUBPM/BITWXVBEFKstTFOgP21CJ3UJUGdVAlqaDPdMKprpPo3sZVh+Pg0KZW 2df6SpMZn6WAYfIR8zfe9JJBcMVmZiP3T5vZFjW1P3HPzdBq6FBCUhVFYqAhSvXGYTMItyBP0KRT7pym X2XI5TyAJzASIuHRByzKHsZVs7Z63qbGErOLkwJJ1X ICA+Pallavi+Cc5RDVDdVAQdBAHiYrEzMVCORgXjK8QzM0TYh7KaB7ZdWS34tJfcucBsCXmkOE1WCN7aNATa XNNEWT3BzGFcuV5byeZvSJYnCCPPSyFpU17eqYDzJLAcJAN3OIDgYj5KOQQyF7KidsGmfUhxdcPjFDAp TJKAVN2FJNovddFyqIUzvOedNI19bRgnTR9MTt2UFu UxYI5qtd6OhXYuEi3DATA0QK5BAXDzCQUjKFZxWWE3UTByEhEgAYxfYCMjJFDdYDE7URKaLRLcDL5WMn QjWNRxBIH2TvctVHHtQWUxiq4AVLAfJXJ1CXNbNUNdUWMfVOXcBWevGNUmOJJaMOJ2YXXfGMObEW2ZWk YcYHAnJCF3MMffLOAyCUIwbj7NHYLoMIS4PFu8MFWd AXBdWRJgAXgxKJQjSEMhQnw5MEVmXKLhXW1BTbPsQRSmHVboGrMoSRVcFJBiqt8NHBKgSFAzFIHpUAAk LIRyHZJbMVvkBBXqKIElJMKnMIAkMVMuEJ8BCeTdFLOtIPV0NZYiFZLhGEJczz5DIEMjKWKfPPMmQsFf NEVfZMGoXKxmZLUrKSG2VUGgBXDwWWNrZZ9NKwToZR AaFMg1RLDiQBNfSKGwwf4YSMFsANQfIyw7DtLmFKImEEZcKIphAWRfVYT1DwbpWLMwFUKcSQ6NGcLqLY UwGHq9IFJlGQJdEXMmyz5PYPSdEBYgYXy1OnUxXOPaIXNmBXnlWREhHJVdMEOnQMUdHLMmLX1QHuTsGH RvPbZfGhAfVKSeXVCdyh5OSBGuXBPjYWQ5UKZmTVKg LSVlJEaiAIYdVYQgQga9YKTyFWFpOV3NLfFpXHLiTiH3LtExKPQdNBRmjk6XTUPxEDF4TDE0FWIdACLf FPVuVSrkAUEaIRD0NgD2HZPwKPFrPV8JQsXvIZLqRSJ9RxEuUCDwYFScxx2GRMNeGCP4ALPlASNmIQEv EOKwYVlbLTFyJJX4Yfb2SIRbBKEaPT4MBwAyMVXhAW X1EYemPKThOVGsbi0ZTGYtFWJ6VbmmZxJeXDBwSZElWJrlNDVpIQU1MHs2NENxCOVtAG3CEwSlBLXzNV T3NDBlWSGwZFXcen7BWNSmGRD0QrE5LNExNCLxRSPyNOxsYQRaIOFdJksbGBOvHHXpUZ1LTzCzMJZkYY E9JPHlCTDgRBCyow8NQXWsZPG2Cos0FvSzFJQwVNGt LPvjVQEfNQHoHJksITFsIMRwEG6OPsOiVLQdSHA4AoArHGMaMRKlzj8AMBNuLSP7USgvKsYbCUPcUQOs XTwtIJKyCEU8MULgWWFwPXDcYB3EEgNkOLhkTHQHOqh8OFvlQ6g1TCO6LP2XU3Azv3WgUAPaTOIOKEwo WL5njkZmTMElXb6VN7eDZza6MFB2VETeHDLjY4XnEQ OqHaJ3KTw6SZzzSgT0RIA6VH3fGZscKdB4SVIjRkN9CMG1FQRtVRI1WyN4ZlN6OlFbDzcnIhBxOG1QNo 8QNfV8UXB6rAFhTw9KTNTqCPYKDkLdDA9VCLn= ID Date Data Source [id number] 01/01/2021 01:03:24 PM EDT [facility] Name Value Range Interpretation Code Description Data Kayley rce(s) Supporting Document(s) Progress Note [facility] HVTUZw9tFmNDIeXq39/SLJkdSGHev0CoPWeqSTr6WQscYBYwY4EwCSJ8jS5jUGF2PUsDSuBnNnXfSNEg lbm WmTzgNIiBjSNJbJuyDUvBxJQqdJdyviXMrEA8FdYU8BGCtK41gQUYjRLLeI9ZoIWNjBOO+Jh1YMPDpnM SgKM6BMbuD3G3bk4oJAe6qxY1hwdSKX8ph9mZfGEbGhvzkuRLyplMd13ngulVm29fR90N8/b35muMY0Q ru2tGezB4SDUWnC3Btks5IgXLkSUo//isGvmtZlsj+ bH/1QyWuZ+FBvaA6VDlmd8I/skHkBmUFll/ckP5qy/r7RVrTzshYZNpW3I44iGhOosULlfGL0wzGe4Z9 Tuarp+NjVx1U0cz3Kg05Zi+8EHYY+Opq0q1tjkw+R5oTnoou8EeCk+AC8wpqNKtEjAQ05G5uyGNy8zl4 rmHHMiRfb6it43g6AGi+qcaZXoSr9TudO7MJS6ARZP NxY5Z/gkrOAnQwhPPEp3QGzojOJmeW7FlOwg+Caleb/bPM3afJb8X8cL0u4nsO3X21fAwlcYYckew8yyDm [file] 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/keaj+AY0rt6QN8MLRBApzz3HIGg6/qMGeaTdyyNbWzeTw2tkRMDnZTnUopmGiKP+lbzOrlxhVPEtd [file] AgICAgICAgICAgICAgICAgICAgICAgICAgICAgICAgICAgICAgICAgICAgICAgICAgICAgICAgICAgIC AgICANCiAgICAgICAgICAgICAgICAgICAgICAgICAg ICAgICAgICAgICAgICAgICAgICAgICAgICAgICAgICAgICAgICAgICAgICAgICAgICAgICAgICAgICAg ICAgICAgICAgICAgICANCiAgICAgICAgICAgICAgICAgICAgICAgICAgICAgICAgICAgICAgICAgICAg ICAgICAgICAgICAgICAgICAgICAgICAgICAgICAgIC AgICAgICAgICAgICAgICAgICAgICAgICANCiAgICAgICAgICAgICAgICAgICAgICAgICAgICAgICAgIC AgICAgICAgICAgICAgICAgICAgICAgICAgICAgICAgICAgICAgICAgICAgICAgICAgICAgICAgICAgIC AgICAgICANCiAgICAgICAgICAgICAgICAgICAgICAg ICAgICAgICAgICAgICAgICAgICAgICAgICAgICAgICAgICAgICAgICAgICAgICAgICAgICAgICAgICAg ICAgICAgICAgICAgICAgICANCiAgICAgICAgICAgICAgICAgICAgICAgICAgICAgICAgICAgICAgICAg ICAgICAgICAgICAgICAgICAgICAgICAgICAgICAgIC AgICAgICAgICAgICAgICAgICAgICAgICAgICANCiAgICAgICAgICAgICAgICAgICAgICAgICAgICAgIC AgICAgICAgICAgICAgICAgICAgICAgICAgICAgICAgICAgICAgICAgICAgICAgICAgICAgICAgICAgIC AgICAgICAgICANCiAgICAgICAgICAgICAgICAgICAg ICAgICAgICAgICAgICAgICAgICAgICAgICAgICAgICAgICAgICAgICAgICAgICAgICAgICAgICAgICAg ICAgICAgICAgICAgICAgICAgICANCiAgICAgICAgICAgICAgICAgICAgICAgICAgICAgICAgICAgICAg ICAgICAgICAgICAgICAgICAgICAgICAgICAgICAgIC AgICAgICAgICAgICAgICAgICAgICAgICAgICAgICANCiAgICAgICAgICAgICAgICAgICAgICAgICAgIC AgICAgICAgICAgICAgICAgICAgICAgICAgICAgICAgICAgICAgICAgICAgICAgICAgICAgICAgICAgIC AgICAgICAgICAgICANCjw/tSXoP2exwFSutpA3W3ot Fi6ZGa4FNF3ox4GuSSZnKBawdtHjUqjVJqZvYDDpQknKYar9QDelJK8WzMTvY9QeL9EnGOyzYB7DOYIh QDAmuTXvLOYrDELoRnC7IGCsGHfbEC1CrVRoPEsqJJQfVWGdTGMcHINhZTLsNTGKLIVnLMErLfNnKBPp RODaQXPmYUGHKD5BSbMnJ3MevW73JAGZPh6+DQplbm DdFoqRLhZ6SGZnx2XeHCe6OX8KEUQyAudiy2McJSIyCLNOUOglLN3PZCB7GQPrGAFaLr5ZCODyV594qg AnQN2MEk8RFnQfAT0hpl7PNPUsCMHnFrjDTyj1RXllUJ9DiMOiYEkKfu7netVnccHQu8LlthDcdLWKkF Ofv3BtBQQGAIJkuTNjGVKPQCLexRHbFN3tYU2pUIOr WHGbIfFjHQDXAT7XBVQiXERxcVJqVORnLCAOZU0LTAfgCXB0CIVvhvGjoFXvTXzoKI2LHRGitwEqBMmz MCBSDQo+Kz6TIQ1va1ArZIx1TDLyd8JfPJk2IW4PUDKnDKnuOITtOM0jm3OfS5H8RaF0iMVvO1kxgysi D1EquaRobtIxZENcRLGnGE5NVK0WSW9PHKPiTVsdWC 6JQPD3YRn2HdEaIHVrFSPsQYU3On3tOFrjLP5UEBm8P5NlY3EAGJRdTKNENUTwhCG9EGUFQr8PL1QNDy uKLRCFEx9ZMlBeG9FXQ7mUH82YXV7IZZR+PiANCj4+RBoxvpLfWmuUTbUiWDDve6IvJRm8VO4QBFOaXR xcBW2TJOAksB8pXOxuXS7BPmB9AjEdCLODRkQzB17u bVSvFQz1Q7EcDzQuLWGnZpbeAKMjUDlzNnGwMPApSlYeVVioIJ6+ID4+ROiqKU8MIQiulrBwBFYeHq6Z DIHvNPGvGL8pEEEqAHXoL5X2yGbjKOHJZoQjM7ijthveRG7nEXHdP912ySwqouCyBLZ3XCYoJy7OHDYx FFA9ECBbqNTfKEodIJGVSMkbLY1IjTQaLHF9aV8jWI ntOADdZKOlN5vCWxJpwSmgPW87uZmupsJuvYMgPOm+Lz0KDR5hk2BtXDd4gzTqFVheTYDmLAveUHQcLL RcGLWyKOY1HOX7EXTEImAgXSAiEVBsDSdlBQKnLDVjkp8YTZDyOUX1TuEtJTPlBPBcPBBaDYzbNXYxDL Z2OTP7VFPoTRQjDN0KBmCcWZFnIHPaEFxcNXBnFUNv nr5DWPOaHSXaErXyUJTiHLIlYIOsDZnbZBInGVD1BRPvXBEwHMUjYU7JMsZnLLPgHMN2LqTtJHEvYTCp xp3DUARdQPYeWvs6SrXkLGRdNWWsQIqyMGOqYKG4SXp4IGLvIEXdBC2GDnQtNDNtLTHvFXOmFZSmHXVx uy2XSTGsXEEgFQA4WCQbSATiHKFxUEexAVZfNCWpTY v2BHRwDZRuCD9LJyTiZNCfNQTvZYOtVWOhUNYzyl5LLQQvJIGyOZnxOOBtZYTkWCUhFIkdWLFeBYD6DA V3BDEyJAFyDR1VDlXeZZSjRoH8XcJoFMYpBXMiqw8OXPNjVPOfTUP0EENhYYUvDLPiYFnnXDYkMNNnPn J5CKRwQAAsZB4VUxYoPRNkEzB0ToXrSXEfKQHcwb4Q APPtOXIgDfWiFSSeLASmSLNpCPulJIDeFLZfCFD8MYZfJUXdGR2SStOjCNCxQpHyFpCqYNMmBUSmho9X XHTxWPGjAdY6GXAlVLGxFKZlAPsrHOAsSMA5Wuk3AGHsWBShWN8MPdCiJUQzDvIuUJApKEGuJHIsxt2V GHUhTTLlOHItCvHjNERoDXXdDNtgQAUlLMZ5JYntHZ AxRXFdOQ8FIaRwXXSzAgS9RPgfLQKmSNEnjp6ZXNSeYFQzCaA7WxCbEQXdSAPrSYmnUCEgVMY6CUGvTX PxJPWvDW6OPoGmIBIbPbpySJMuMJClTHNqne0IONVjTDM0OGC8GJShPYHwIVTlGCodLYZpKOW3Zql4GE EyHZAwQC4IEqKkCOYjAEp3JOCrUIZiWZZluk3BIGXu WCW7AAM4ZqNdZFKxGAYlWKtvWGTiKPF2Qug6PJZuHDOtXS2YDmHxWHZwNGNhMpGlSUCoMEWglq1ZFDKs XJV3BFLlCIOhRBHeNHMjZGtzINDvYNNhBEs5UWFzNGStLW7OKbNeKVPaVGM9BWHjUBWvZLSyac2RTZQt PMJ1PFp5OnJqEEMsUCFaAXynKJPsZCK2KTw2BMEuWK BhZA4VSoYqEOVmYWEfKaXvOTBmEYCioj5WHTLaPFS3JsW0JaAeUISgZYFsXXokEZQeDSU8XJj7ZCOhQA TxWY7BOcHdMWAtEPG7KoSvYVScFXBzmv9YCPLoJZS3Fcc4BvNnTBIpPYWvHLxcPWRmWAB1EJB3DCZoXE PvVS1GPxLdRLTbSUi2JlcbQIQwLQMueo6ZSEYpIEM0 XMFyMPFiYTXoSHKnZVamYSCqYLN6UwD8FQEmNXRsVZ0XUwKeBTxiMTPLWhs8EKniS6s3XBL0Fy1HY8Cb l7HmUSFlQGSQHAltRX9xnnQaNNPtTa3MT3vWEzybGSE4REV2WUj6YTRlXFeuLEYiDYWbTOI3URE7EOO4 Jj5oOYZnBKUaYsK3TeztUhGfJHF0LRDmAaQ2YUh9Nk bmEKLyUkPsFS9WCf4INeH1NRY5bFKzCo9KWZl4SRBWXeEgLW5GXKw= ID Date Data Source [id number] 12/28/2020 06:28:37 PM EDT [facility] Name Value Range Interpretation Code Description Data Kayley rce(s) Supporting Document(s) Progress Note [facility] NPXZYo5mIpTVGoBr85/TFBzoCRWfx8UoBRvuOCl4AJdvEXGrJ1IaZDM5vK0kBFS0ZUcXThRkSqSsEVZ9 lbm [file] nW+DPpHaALHD/+hz30FbUUBf+zoTKpa6/3XWFTY [file] dGE+DQogICAgICAgICAgICAgICAgICAgICAgICAgICAgICAgICAgICAgICAgICAgICAgICAgICAgICAg ICAgICAgICAgICAgICAgICAgICAgICAgICAgICAgICAgICAgICAgICAgICAgDQogICAgICAgICAgICAg ICAgICAgICAgICAgICAgICAgICAgICAgICAgICAgIC AgICAgICAgICAgICAgICAgICAgICAgICAgICAgICAgICAgICAgICAgICAgICAgICAgICAgICAgDQogIC AgICAgICAgICAgICAgICAgICAgICAgICAgICAgICAgICAgICAgICAgICAgICAgICAgICAgICAgICAgIC AgICAgICAgICAgICAgICAgICAgICAgICAgICAgICAg ICAgICAgDQogICAgICAgICAgICAgICAgICAgICAgICAgICAgICAgICAgICAgICAgICAgICAgICAgICAg ICAgICAgICAgICAgICAgICAgICAgICAgICAgICAgICAgICAgICAgICAgICAgICAgDQogICAgICAgICAg ICAgICAgICAgICAgICAgICAgICAgICAgICAgICAgIC AgICAgICAgICAgICAgICAgICAgICAgICAgICAgICAgICAgICAgICAgICAgICAgICAgICAgICAgICAgDQ ogICAgICAgICAgICAgICAgICAgICAgICAgICAgICAgICAgICAgICAgICAgICAgICAgICAgICAgICAgIC AgICAgICAgICAgICAgICAgICAgICAgICAgICAgICAg ICAgICAgICAgDQogICAgICAgICAgICAgICAgICAgICAgICAgICAgICAgICAgICAgICAgICAgICAgICAg ICAgICAgICAgICAgICAgICAgICAgICAgICAgICAgICAgICAgICAgICAgICAgICAgICAgDQogICAgICAg ICAgICAgICAgICAgICAgICAgICAgICAgICAgICAgIC AgICAgICAgICAgICAgICAgICAgICAgICAgICAgICAgICAgICAgICAgICAgICAgICAgICAgICAgICAgIC AgDQogICAgICAgICAgICAgICAgICAgICAgICAgICAgICAgICAgICAgICAgICAgICAgICAgICAgICAgIC AgICAgICAgICAgICAgICAgICAgICAgICAgICAgICAg ICAgICAgICAgICAgDQogICAgICAgICAgICAgICAgICAgICAgICAgICAgICAgICAgICAgICAgICAgICAg DRJqADFlERIbVZGrOMAfRDBpMOXuVLLzDRQjLFYfRZYcZLTdPOJxDONmOTTfGLZcLVPuLGIcCSh2P7ws CZPgVOCzVJ9eDCr7Bh2+KDmZAfCwCHM0txVqkJ9ZXK 3vh5QrYQyrDCXln3DsKSq7HP6DLFWcTPgmQP9POXlyva2HZVJhIXTlxMFMc2yoYsEwAOS4OTJjJrjuTL 8EYQBfP4waltApGMLhWFNRMFfyZUSUDKgvUVHUDAHuSWHmPvEvGgBkPLRkQQXkVZUKXXM3MWSmShNjGL AwIFIgMjEgMCBSIDIzIDAgUiAyNSAwIFIgMjcgMCBS BJ4JLtTeF1LiwT54BYMlTPv+Is7LQP7ml1GvVYx8ROEvVE8ckl1MOZyYLyOwV1IlgyM9ZAY0YJKbZk6V JPYsUBSxiFS2VrWfXTWKBeKqS6GytY01GFPSYu9+OQewtgMgCeyHUkQ0UICjd9UnOGj8FE1PQHDkQPf4 pTAvLXQgM3Zhs7WfPh79EMKxAhvcXpmln9ceeiLnAL UijSklYVggEKXkJTKtTKZzJGZxHoQmCRBbORonTECMACaRUdRgM0Izk3NbDhU9DGPpEfEhVHfyHWGsHw F9XF91mUdjNA5MTQCyKBDrNE73CGV7UPLuYi3MNi6COxOkEA8yiq6MCYgqNCSjCpdPSnp2GTvaVC5FsX GmV9FeyJOsk1zOJjTuL7ZAIGRtXOAaYe8UHNTgJcQb OFKeKDrdMH1vFSKvUEGIhFrqeiS3VB2MNS0djuWgFM1KTkZqNs3vHc3WAlHdH2FvU2CxWTZqXBCYKAaq JH2ZBBsgDQ9kDI6Ge3SSyUOjzW3eha0ORKTcBFChIzdtez4IBnoyK1W6qTeiUMEdOOBhZKEQKWtsEP0B WLYjNQB5XNH7GQClGNAGWsEoO96bCE5CH9Ziz32bFw J4MTBuZyFfMNnoZV93cYxykqIqkNGkcPocCC0XCw3+DQplbmRvYmoNCnhyZWYNCjAgNTgNCjAwMDAwMD SxCWAnPxN1RnNuRk1CDGExDMTeKJIkVaKwVYWpLOXqYYulWQYlRIv2CUfnVFHeBYAmJB2QExWpUEXeXY Z6YyJtZFVnNHTest6MPZPoGBAfHGL0TrVrJGUyPHDw DNcyTFPlIQO7CsK2HHCkSAWpOJ0WUzTjAJLbPTQ6BoAaIUKyJOGyxv2PYUWtDBTtQMB7XxKiDVYyCLBj ZIngACYxFWV4FqsnYDMkTHHsMW3BYyNmQBImTXL2LEPqHIEaSZHimt5GPPXiHGCwXFwvVHCtLXOtWEKh ILhhTWIiUPCjZrv1TLBjAFJyKT3MBjJlHBDdWRB1JX CmWPYsUFXadq9UPAMzNYTuUnZ9HNCnQPRoPYKwQBpqOVGpFIP9TZayTGJlFQIdZN3NWdChMNHmYPeqLZ MpABRoKPAcvg9ADFNuBCVnHWZbHDAjTVPxZUOrLCqkRSAjPVWdFkS3UUPjTNMiBC4FOdOpAWAdLgK9Ef QsWNJiSXEukb5AWDOiCKKlNdl9OyNtUDOePRZvXVuq VLNjLPWbNAu6UBPbRZEpJH4GWvHiOEQfVcY9RFZoJBQkQXRisa6CZDHbTYBdQnI2TERsMJChWITuHXlo LJJfJIFhClejADUxPNTmQL9NHdIoQNYtTsY4UZbkEFSmOLVxvs0IUABgIUUsHyahJXWwBVIiASIpQFoq CFGjTGJ2ZIG6AAHdGCQjNT5WOvJwCVCuSiI9OUHgQH JbPQScbm4TVTOnOIMkXZIdVHSdLGDbOSLyUSyaPOXjUOR1GPzeGBEbNJVqIV6JFwAqJSNqPsFeAlfsBS JuCSLvdl6UOVZpHIOvUnE8WMJqCCHxHGUoWPetNLAmMHB4PKMoIEJzNQSfFU0JNvWeRKQbGtp6RBLeBK PhIDGoxy6VCDYkROJtEklwJQOfOUJgXTOlUXboTMTo PJO4SBX1OMIhJJLjLK4KHdEoKFTqYmy8CBVwSOInQWMpca8RTLFzYTX5JAslGKNqDOWqGCCaMZdyNKYm LRgrFzWgXITrCJIcMP4TAyJqNKZuVcZ8UowwIBSzPKRnqw2PRHFwZSQ4IYjpHILqPSArVLNgCKivQXCg EUeeHFueQPEqOIEtPJ5JXlEbNEGsTaQnBrJeGMJfSY Irko3FBEAfGMF1ZfDxHVHhINSsBHLqNOtoLBJlBMa9NtR6RMJpPWQoTF6JDiDnLXIfUqv0QSsvDUPhER Ygwo5DCWAcQIE1Nsr7HANcROZgPEVrYYgoXBZqFCa2SBN5KREsTHLqRX9CHfFvNZAfNkjbAPHmXESbRL Mzvq4ZSXSiRMK8CGI9TMZfPJCxCFVkIXlvTHYgMIv2 APOuDCBsCBUfCC2XLvWtUBCyHjp7YLYnHRVmIDSbcl5BETGoIWH1JSW8QsGkMUFoACXpQUqlVWZbGCx0 NDKqPDQoIZQuBI8MFqPrRIDaYNQuXwCcHLJrBZPbuj6HGPOdHKY2ZRlxPCPpHCYpINYtNCplXARoEZiz UQGeTZNnRVQzHE5ZJjRnNYZjTJSpGiJpXGZnIVNdem 0UzMYqvJseta7UEWaUHx6KaRxrXJD9WGtbFs6djDO3VaRtIIXHSg7YskDeTBIvFCTREWecXUTyMTeqFQ s6JpX6NjQyFRDjVONzQpCyAIQ7Z7N5ZCO2OpT1ZoG9ZJEjTtG8ZUQeY5I3WoDsE1WgXAG8THFfMHd1Mi cyMzk+QO1xTGu+Ey6Mj8LrgtJ6fpIfQTp0NdNrNd4ZXDELZ8YFJw== ID Date Data Source [id number] 12/25/2020 01:17:24 PM EDT [facility] Name Value Range Interpretation Code Description Data Kayley rce(s) Supporting Document(s) Osmolality of Urine 249 mosm/kg 300-1000 L [facility] ID Date Data Source [id number] 12/25/2020 01:46:11 PM EDT [facility] Value Range Interpretation Code Description Data Kayley rce(s) Supporting Document(s) Potassium [Moles/volume] in Urine 22.7 mmol/L [facility] ID Date Data Source [id number] 12/25/2020 01:46:11 PM EDT [facility] Value Range Interpretation Code Description Data Kayley rce(s) Supporting Document(s) Sodium [Moles/volume] in Urine 35 mmol/L [facility] Confirmed ID Date Data Source [id number] 12/25/2020 01:46:11 PM EDT [facility] Value Range Interpretation Code Description Data Kayley rce(s) Supporting Document(s) Chloride [Moles/volume] in Urine 43 mmol/L [facility] Confirmed ID Date Data Source [id number] 12/25/2020 09:20:44 AM EDT [facility] Value Range Interpretation Code Description Data Kayley rce(s) Supporting Document(s) Leukocytes [#/volume] in Blood by Automated count 3.4 10*3/uL 4-10 L [facility] Erythrocytes [#/volume] in Blood by Automated count 3.53 10*6/uL 4.6- 6.1 L [facility] Hemoglobin [Mass/volume] in Blood 11.0 g/dL 13.5-18 L [facility] Hematocrit [Volume Fraction] of Blood by Automated count 31.4 % 4 1-53 L [facility] Erythrocyte mean corpuscular volume [Entitic volume] by Auto mated count 89.1 fL 80-96 [facility] Erythrocyte mean corpuscular hemoglobin [Entitic mass] by Automated count 31.2 pg 27-33 [facility] Erythrocyte mean corpuscular hemoglobin concentration [Mass/volume] by Automated count 35.0 g/dL 32.0-36.[facility] distribution width [Ratio] by Automated count 13.8 % 11.5-14.5 [facility] Platelets [#/volume] in Blood by Automated count 246 10*3/uL 150-400 [facility] Differential cell count method - Blood [facility] Neutrophils/100 leukocytes in Blood by Automated count 61 % [facility] Lymphocytes/100 leukocytes in Blood by Automated count 19 % [facility] Monocytes/100 leukocytes in Blood by Automated count 15 % [facility] Eosinophils/100 leukocytes in Blood by Automated count 3 % [facility] Basophils/100 leukocytes in Blood by Automated count 2 % [facility] Neutrophils [#/volume] in Blood by Automated count 2.11 10*3/uL 1.8-7 .0 [facility] Lymphocytes [#/volume] in Blood by Automated count 0.65 10*3/uL 1.2-4 .0 L [facility] Monocytes [#/volume] in Blood by Automated count 0.51 10*3/uL 0-0.8 [facility] Eosinophils [#/volume] in Blood by Automated count 0.09 10*3/uL 0-0.5 [facility] Basophils [#/volume] in Blood by Automated count 0.07 10*3/uL 0-0.2 [facility] Nucleated erythrocytes/100 leukocytes [Ratio] in Blood by Automated count 0 /100{WBCs} 0-0 [facility] ID Date Data Source [id number] 12/25/2020 09:34:51 AM [facility] Value Range Interpretation Code Description Data Kayley rce(s) Supporting Document(s) Prothrombin time (PT) 13.5 s 11.6-14.0 [facility] INR in Platelet poor plasma by Coagulation assay 1.07 [facility] Routine intensity oral anticoagulation I NR is typically 2.0-3.0. Target INR must be clinically individualized. ID Date Data Source [id number] 12/25/2020 09:45:59 AM [facility] Value Range Interpretation Code Description Data Kayley rce(s) Supporting Document(s) Amylase [Enzymatic activity/volume] in Serum or Plasma 75 U/L 28- 103 [facility] ID Date Data Source [id number] 12/25/2020 09:45:59 AM EDT [facility] Name Value Range Interpretation Code Description Data Kayley rce(s) Supporting Document(s) Albumin [Mass/volume] in Serum or Plasma by Bromocresol green (BCG) dye binding method 4.5 g/dL 3.5-5.2 [facility] Bilirubin.total [Mass/volume] in Serum or Plasma 0.3 mg/dL <1.2 [facility] Calcium [Mass/volume] in Serum or Plasma 8.3 mg/dL 8.8-10.2 L [facility] Chloride [Moles/volume] in Serum or Plasma 89 mmol/L 98-107 L [facility] Creatinine [Mass/volume] in Serum or Plasma 0.73 mg/dL 0.70-1.20 [facility] Glucose [Mass/volume] in Serum or Plasma 117 mg/dL 70-140 [facility] Alkaline phosphatase [Enzymatic activity/volume] in Serum or Plasma 82 U/L 40-129 [facility] Potassium [Moles/volume] in Serum or Plasma 5.0 mmol/L 3.4-5.1 [facility] Protein [Mass/volume] in Serum or Plasma 6.9 g/dL 6.4-8.3 [facility] Sodium [Moles/volume] in Serum or Plasma 122 mmol/L 136-145 L [facility] Aspartate aminotransferase [Enzymatic activity/volume] in Serum or Plasma 34 U/L <40 [facility] Urea nitrogen [Mass/volume] in Serum or Plasma 10 mg/dL 8-23 [facility] Osmolality of Serum or Plasma by calculation 254 mosm/kg 275-300 L [facility] Creatinine/Urea nitrogen [Mass Ratio] in Serum or Plasma 14 [facility] Bicarbonate [Moles/volume] in Serum 24 mmol/L 22-29 [facility] Alanine aminotransferase [Enzymatic activity/volume] in Seru m or Plasma 23 U/L <41 [facility] Anion gap 3 in Serum or Plasma 9 mmol/L 8-15 [facility] Glomerular filtration rate/1.73 sq M pre dicted among non-blacks [Volume Rate/Area] in Serum or Plasma by Creatinine-based formula (MDRD) >6 0 [facility] Glomerular filtration rate/1.73 sq M pre dicted among blacks [Volume Rate/Area] in Serum or Plasma by Creatinine-based formula (MDRD) >60 [facility] ID Date Data Source [id number] 12/25/2020 02:03:30 PM EDT [facility] Name Value Range Interpretation Code Description Data Kayley rce(s) Supporting Document(s) Lipase [Enzymatic activity/volume] in Serum or Plasma 65 U/L 13-6 0 H [facility] ID Date Data Source [id number] 12/25/2020 03:41:51 PM EDT [facility] Name Value Range Interpretation Code Description Data Kayley rce(s) Supporting Document(s) Thyrotropin [Units/volume] in Serum or Plasma 1.030 u[IU]/mL 0.270-4. 200 [facility] ID Date Data Source [id number] 12/16/2020 03:53:57 PM EDT [facility] Name Value Range Interpretation Code Description Data Kayley rce(s) Supporting Document(s) Progress Note [facility] UBGLCs4hFvDRSwFl70/WJIosVVWas1MzBZfqVOl6TJkkNMTqH0IxETR3zP7eANL2JEhUUkRgOcTeEMU3 lbm [file] i/BL6KHGNV3kdYstlRAlxz6qVDApg04d3ilIzAcleGUKRiX3rj0yMTL9FeaQlWJQ0UFVGBdm9lTN+татьяна [file] WFsN4CzwbqdKM/1BEuI4QrKDjeZ0Qu8FxNVb/b [file] JY5fHBoaVTuag8OfpdB2paZ1fGyZoZcM+vp product management+uhD9ax [file] ICAgICAgICAgICAgICAgICAgICAgICAgICAgICAgICAgICAgICAgICAgICAgICAgICAgICAgICAgICAg ICAgICAgICAgICAgICAgICAgICAgICAgICAgICAgIC AgICAgDQogICAgICAgICAgICAgICAgICAgICAgICAgICAgICAgICAgICAgICAgICAgICAgICAgICAgIC AgICAgICAgICAgICAgICAgICAgICAgICAgICAgICAgICAgICAgICAgICAgICAgDQogICAgICAgICAgIC AgICAgICAgICAgICAgICAgICAgICAgICAgICAgICAg ICAgICAgICAgICAgICAgICAgICAgICAgICAgICAgICAgICAgICAgICAgICAgICAgICAgICAgICAgDQog ICAgICAgICAgICAgICAgICAgICAgICAgICAgICAgICAgICAgICAgICAgICAgICAgICAgICAgICAgICAg ICAgICAgICAgICAgICAgICAgICAgICAgICAgICAgIC AgICAgICAgDQogICAgICAgICAgICAgICAgICAgICAgICAgICAgICAgICAgICAgICAgICAgICAgICAgIC AgICAgICAgICAgICAgICAgICAgICAgICAgICAgICAgICAgICAgICAgICAgICAgICAgDQogICAgICAgIC AgICAgICAgICAgICAgICAgICAgICAgICAgICAgICAg ICAgICAgICAgICAgICAgICAgICAgICAgICAgICAgICAgICAgICAgICAgICAgICAgICAgICAgICAgICAg DQogICAgICAgICAgICAgICAgICAgICAgICAgICAgICAgICAgICAgICAgICAgICAgICAgICAgICAgICAg ICAgICAgICAgICAgICAgICAgICAgICAgICAgICAgIC AgICAgICAgICAgDQogICAgICAgICAgICAgICAgICAgICAgICAgICAgICAgICAgICAgICAgICAgICAgIC AgICAgICAgICAgICAgICAgICAgICAgICAgICAgICAgICAgICAgICAgICAgICAgICAgICAgDQogICAgIC AgICAgICAgICAgICAgICAgICAgICAgICAgICAgICAg ICAgICAgICAgICAgICAgICAgICAgICAgICAgICAgICAgICAgICAgICAgICAgICAgICAgICAgICAgICAg ICAgDQogICAgICAgICAgICAgICAgICAgICAgICAgICAgICAgICAgICAgICAgICAgICAgICAgICAgICAg ICAgICAgICAgICAgICAgICAgICAgICAgICAgICAgIC VdLSHuQKNiFJTwQNRqMMx1W6yvRGEdQHSlHI4oCNt5Fd7+HMzUZwWbCOJ2dmJkaN8ACU2cs3VdWXmpGT Nbq7TzEEe1IN8ECHHtQHgvUF4WGAhjqn1LNTQkHDDprCTHp1dvMpSuMHP3NKTbJqqiPT7QBNZsE6rncx BbIDUgMCBSIDcgMCBSIDkgMCBSIDExIDAgUiAxMyAw OSNrQIYjVNKNHPK7OIJgDdUnGFJcFTMmXzAfWFLJJYEmFALfEuVoMGAgEWNtQB5RYWZqC471faApHJAT Cj4+QSxfdnLuLjjNWkXkVXErd2FyTBh8DD1UOZJpOyfvk0FdIVAzWJJWIWxlPU2NPTW9DGT1CYFfNg1E XFRtT769llUjBC6KQu3JBpVgIT6hel0XBLMfKPFqEu qSZlg2KIviJU8KaKAdAVwVws3bhqFxzmQYk7HunrFseHGOtKYab2StTTQVYOIpsTDrPBEJQOMuoZJiIM 50LaVzAvOkPFk5QWHlHH9iYEmwHS4ZLVU6FAtpZGHdBLZuR1tJIhTeBANpIeKveHimOJ8UBjPhC7Xmgh QohFX0KuNyGRUYTp4+UVxayrDpChyDOuX5LWEjr6Go NUm3RJ3PUBAfIPtkCD0MNUOnwG7sRYvaKE3UIhI4PHDqSEWENrTrO55mlUFxVLr1E0ZoSoGxEYIrGktl ZXMgPDwvTmFtZXMgWyBdDQogID4+ID4+LVxuOA5ENOfhvqJjVBPvWz9APVExIXLfYC2aSRYmUJPfX3M7 cEjtHFRMRpLiQ7dotvnxVJ5qCCFyQ785oPtaviGzBY YoJNDaGq9LWAYaWEY5LHNnkRFbMWBaXKCAWYfwVP3GxDGgDUF0sE7dVLdgZPRrBZPwK1sUSpGizWmzOX 51bGwgbnVsbCBdDQo+Nu4NNC4ma1FqREr1skSmHXlhZWG2PSikCWAdBOCeYBJsZEW8SSF5MXTCZfWhTF MwPYJdLCnnRICbSHWapq6MGSCoEYV6CjPoLUKpJRTx KKLgUZqwIUKbYPv5TpykYKDsRKZnVE1ROuHjRBDpCFTwLPrtQCYhCIBimj9SYBPiKOImUKGtHVMcGQKn ENRkYFlbTEWyBQU9VJX2JRQjJCHsIY2VCmXaNBKxYRrzUCRxUUYpSLVnae1SSYNtUQVhGKYfXPWsSGMi VHGoUVnuVTOqTUDbLYa8QRXgHZAoEI7JKaVsQYFfGM L7ZAIpVKUcNEPbgh1TUQUyTFFwRrf4PVRxYBTmAKAyHFulIBVrNAS6FYx0TOOzAOIzNV6WPoKrOOEqPF ZtEZidKTYgTYXxsb9BVMFxXFKoWaX4QeJnUIZxVZFfRRquHBDvBKN6BTZ9BGVxJDKnAH8YRsMdGZXdDV fiMeSjRVFjDYCwfu2UGXNoYDJwAFZhTiIhMMFfMQPb TTanLSVlNHIcWwD6PFGsQFHsZM7NFbVfZLPeZyQ3WfGwQXJrJQAfmb7EEEPfAVJhRhilSlNlMFYcLAMo NNnhGWRtWDT8DsA2SXHpVBPqGD7DSwAxGGCoDbI3YpJzULMmFBSxev7EFVRaVMYjXLy0FISeUOSyDSYn SJnbIORkDXJtUGVrFBJzPVEbSL2RAtEeSVUbEzQ6Go KqKUPbVYTsvm9KRSIkVCUiVrY9AAShZGXiEGWhTDvfKCOgJQE0PWDjAOTiZFNaHD8CZtNmHEFxAxYhGb aeQYXzALZbof7MXXZeGBLnFEGkKGDcWJKeRTRvITacVWEgYHK9RKn4QVUcMIQdHO6IHdUnJECvKsD0TH SuTBIzVNWiie4UHAXbBEXsYYo1HZUnPFFaDKCeEInf IINiVCO7YdT9SLRoQYNoHE8TSoQcEVNlPxnqJzCxRUPeBUUdve7AGUDlCAL0IbU0OTJuOYHfOTJeKMft OXNkOOS0YbF6XEMkPESsGL1QXfUaDGKjWax5TMKvWUSnDMGguj9KBZXxYNA6RFVvUUOyJHKkCDNzOWrc GAFiEPB9YpR9SNCiRDIfBT4TBnDjGVJzTfs3MAIaLJ NpSLHfzq1LKYWgUXB0ZYA4PiZbFEPfIBIsRTaoYTOrFTr1PIF6ZSGpIATrCI3JTjPwOQNzVkHbSrUuBM OrXSPtdg4ZNAHaRYR1FBSxYmOzEAGzIHBlSNqkEXNeWFw8KFEmIXUyNMInFW2MZwVnAXIfZxQ9CFKiPV PsMGVsek7KZECyGIG1LcGrFTZwOLNjPEHbBNffYRVi JZl9OLh9FCBlVTMgIV3MKsCrMUBfQcuuZkIcGHHhFPSrqf8EWGYcICZ1AeVgSLNyHLOuLNDzFJthRWLo ZMp7XGl6WBElULJzYO7XDtVkPFGeYzg3KVTqIOUnCHOwwe8MBOTfRRH6XFK4EXRiPJAyZDIeJEtmGKAu JRw8WGKeQPAaGEDaYT1NLeDrJQKhBcm4GRUoSHNdBH Dwkf1YsCRkwLwegn8XLNaONx8IwZpoVXV4OEhhNr5oxSS9OWWzABYHAr7DjdAaVZNmAOVNFYywSYHgDA OcVfJiMbo9Fag2XCAlBEB6VPhuIEFeNZHbIjzkMoP2FjP7SRS8S8YmHjdrBBhoEKHgLSD4MkKsYrQvMV C9MPV4Dsd+CC4yYMn+Ds8Zi0AxdtE4dcYfESv9NMqoJW3ZZJJRQ2ZRMf== ID Date Data Source [id number] 12/16/2020 08:44:47 AM EDT [facility] Name Value Range Interpretation Code Description Data Kayley rce(s) Supporting Document(s) Leukocytes [#/volume] in Blood by Automated count 4.5 10*3/uL 4-10 [facility] Erythrocytes [#/volume] in Blood by Automated count 3.79 10*6/uL 4.6- 6.1 L [facility] Hemoglobin [Mass/volume] in Blood 11.7 g/dL 13.5-18 L [facility] Hematocrit [Volume Fraction] of Blood by Automated count 34.4 % 4 1-53 L [facility] Erythrocyte mean corpuscular volume [Entitic volume] by Auto mated count 90.7 fL 80-96 [facility] Erythrocyte mean corpuscular hemoglobin [Entitic mass] by Automated count 30.8 pg 27-33 [facility] Erythrocyte mean corpuscular hemoglobin concentration [Mass/volume] by Autom[facility] 34.0 g/dL [facility].0-[facility] distribution width [Ratio] by Automated count 14.0 % 11.5-14.5 [facility] Platelets [#/volume] in Blood by Automated count 247 10*3/uL 150-400 [facility] Differential cell count method - Blood [facility] Neutrophils/100 leukocytes in Blood by Automated count 59 % [facility] Lymphocytes/100 leukocytes in Blood by Automated count 25 % [facility] Monocytes/100 leukocytes in Blood by Automated count 14 % [facility] Eosinophils/100 leukocytes in Blood by Automated count 1 % [facility] Basophils/100 leukocytes in Blood by Automated count 1 % [facility] Neutrophils [#/volume] in Blood by Automated count 2.62 10*3/uL 1.8-7 .0 [facility] Lymphocytes [#/volume] in Blood by Automated count 1.14 10*3/uL 1.2-4 .0 L [facility] Monocytes [#/volume] in Blood by Automated count 0.62 10*3/uL 0-0.8 [facility] Eosinophils [#/volume] in Blood by Automated count 0.06 10*3/uL 0-0.5 [facility] Basophils [#/volume] in Blood by Automated count 0.04 10*3/uL 0-0.2 [facility] Nucleated erythrocytes/100 leukocytes [Ratio] in Blood by Automated count 0 /100{WBCs} 0-0 [facility] ID Date Data Source [id number] 12/16/2020 09:14:34 AM EDT [facility] Name Value Range Interpretation Code Description Data Kayley rce(s) Supporting Document(s) Prothrombin time (PT) 13.0 s 11.6-14.0 [facility] INR in Platelet poor plasma by Coagulation assay 1.02 [facility] Routine intensity oral anticoagulation I NR is typically 2.0-3.0. Target INR must be clinically individualized. ID Date Data Source [id number] 12/16/2020 09:17:56 AM EDT [facility] Name Value Range Interpretation Code Description Data Kayley rce(s) Supporting Document(s) Albumin [Mass/volume] in Serum or Plasma by Bromocresol green (BCG) dye binding method 4.6 g/dL 3.5-5.2 [facility] Bilirubin.total [Mass/volume] in Serum or Plasma 0.5 mg/dL <1.2 [facility] Calcium [Mass/volume] in Serum or Plasma 9.1 mg/dL 8.8-10.2 [facility] Chloride [Moles/volume] in Serum or Plasma 90 mmol/L 98-107 L [facility] Creatinine [Mass/volume] in Serum or Plasma 0.89 mg/dL 0.70-1.20 [facility] Glucose [Mass/volume] in Serum or Plasma 138 mg/dL 70-140 [facility] Alkaline phosphatase [Enzymatic activity/volume] in Serum or Plasma 80 U/L 40-129 [facility] Potassium [Moles/volume] in Serum or Plasma 5.0 mmol/L 3.4-5.1 [facility] Protein [Mass/volume] in Serum or Plasma 6.9 g/dL 6.4-8.3 [facility] Sodium [Moles/volume] in Serum or Plasma 126 mmol/L 136-145 L [facility] Aspartate aminotransferase [Enzymatic activity/volume] in Serum or Plasma 27 U/L <40 [facility] Urea nitrogen [Mass/volume] in Serum or Plasma 15 mg/dL 8-23 [facility] Osmolality of Serum or Plasma by calculation 264 mosm/kg 275-300 L [facility] Creatinine/Urea nitrogen [Mass Ratio] in Serum or Plasma 16 [facility] Bicarbonate [Moles/volume] in Serum 25 mmol/L 22-29 [facility] Alanine aminotransferase [Enzymatic activity/volume] in Seru m or Plasma 20 U/L <41 [facility] Anion gap 3 in Serum or Plasma 11 mmol/L 8-15 [facility] Glomerular filtration rate/1.73 sq M pre dicted among non-blacks [Volume Rate/Area] in Serum or Plasma by Creatinine-based formula (MDRD) 86 mL/min/1.73m2 >60 [facility] Glomerular filtration rate/1.73 sq M pre dicted among blacks [Volume Rate/Area] in Serum or Plasma by Creatinine-based formula (MDRD) >60 [facility] ID Date Data Source [id number] 12/09/2020 02:15:00 PM EDT [facility], ) Name Value Range Interpretation Code Description Data Kayley rce(s) Supporting Document(s) Gram Stain Laboratory test result Normal (applies to non-n umeric results) [facility] ([facility]) NO CELLS SEEN NO ORGANISMS SEEN Nasal And Sinus Culture Laboratory test result N ormal (applies to non-numeric results) [facility] ([facility]) <content>FULL REPORT IN LAB NOTES ([facility]).</content>
<content>NO NORMAL TIGIST ISOLATED</content>
<content></content>
<content>ORGANISM 1: [...] 1 S</content>
<content></content> ID Date Data Source [id number] 12/09/2020 02:15:00 PM EDT [facility] Name Value Range Interpretation Code Description Data Kayley rce(s) Supporting Document(s) Bacteria identified in Nose by Aerobe culture Laboratory test re sult Normal (applies to non-numeric results) [facility] ([facility]) NO CELLS SEEN NO ORGANISMS SEEN ID Date Data Source [id number] 12/05/2020 09:21:09 AM EDT [facility] Name Value Range Interpretation Code Description Data Kayley rce(s) Supporting Document(s) Progress Note [facility] IBILGp3lOoNJDfXa81/QBGgyFLEhq6JoISysKQk6YZrsZITsE6JnUYM0vB3wCZV4VIgGUhZlOxBiJEX2 lbm [file] AgICAgICAgICAgICAgICAgICAgICAgICAgICAgICAg SJOdCZKaKWEpTCBfPMGgIREaLOUfQMSrGF0MWQReCIOdNVVaZRZmRVRtMLBdDWIdCAWjCTMzBTWeKLKl ICAgICAgICAgICAgICAgICAgICAgICAgICAgICAgICAgICAgICAgICAgICAgICAgICAgICAgICAgICAg MSToIODcWO8MBOQvBHBdSJNyXIXeAYUoZMQtCSFcTR AgICAgICAgICAgICAgICAgICAgICAgICAgICAgICAgICAgICAgICAgICAgICAgICAgICAgICAgICAgIC KkAEYdXJGrPPGpOKLeZCHrKE0KIKWcBFWyQHKrSSBuHWXnSPYcAERbJWYeUKBzQAZaIQPpARLhXGVbFU AgICAgICAgICAgICAgICAgICAgICAgICAgICAgICAg XPRmOJLlWRGtGZPuUPWdVKAlGFEjCAIuLPClJB6NYZMsPCQhEHNzLXOeLWOsVQXgGMJrIVFaDZIvPPNp ICAgICAgICAgICAgICAgICAgICAgICAgICAgICAgICAgICAgICAgICAgICAgICAgICAgICAgICAgICAg VVNuYAWxRDKrXV8MGTKxDUEiADVcIXKzXLLuZFXhLK AgICAgICAgICAgICAgICAgICAgICAgICAgICAgICAgICAgICAgICAgICAgICAgICAgICAgICAgICAgIC ViPCCrKYAgZQIrIVGbBKTaQBKtON1VWQVaEWUvTZMiSXOoVGExHOTqNLNoYQTfSIKcETVyZOTjANDpBR AgICAgICAgICAgICAgICAgICAgICAgICAgICAgICAg SKFoYOPzXWUeBDGsDNIhFLRtVQGsAZPzLQVyXCAqUP7XGQHrHEXjIINrAKGfTNHeMCPgQMHbNLGoUGFl ICAgICAgICAgICAgICAgICAgICAgICAgICAgICAgICAgICAgICAgICAgICAgICAgICAgICAgICAgICAg KCFuDLOzKERpXVNaRM4ZCEJaOHOjJVLdHWUlPOZiZB AgICAgICAgICAgICAgICAgICAgICAgICAgICAgICAgICAgICAgICAgICAgICAgICAgICAgICAgICAgIC WmBDFdUTYgTVRkWJPqZMXkZPMaRHRrIN9CCRJaGCHoTGQqNWLwWATrSXUsONUjCFSuEUWmPIXhWFEsTR AgICAgICAgICAgICAgICAgICAgICAgICAgICAgICAg BJCtLZNwPBDdONInARPhEZYcIMPbXCHgHLBmLGHaUJQvZI9XVE02yKTgn5U6MZPxLW2tquf/Fj0JODeb fsMstAWiOG3SLrWiCH7pqx5VZtCuWR0bql6GFKcAQrEdF0W1jAMmQTNvSBNWEzEeZ19sVElaUc31IFtp XXYlAwEjYOa9Is0JVcSsD8ppHMRoMaR1XQVpBcF9QY UsTxR8VZObUxZcJYDbYNZvDSCcULCKAPJ1NQKyRiBfCJgjEW2Bw7CstEP1ECf+Xq8NOE0wj1PwMIe1WG RpMA2cby2ZYBvEQeYyW2RwljQ9FUPzOCYdSr3RONIsKVJrcPZ2LWNsWDFNHnAaU6KspM55XIXUVm9+DQ unpnAcErvROuXxJNJsw9PmPSm5IM5IKGYjJXg1qHRs MQIbR7Tes3ZnHf22FEYkXmuxIhtuw6sjpfZeJOUdsSlwEVfbGHObNZDiFO7jPg7qCUUxAVK3FnFrHEOP LU5WWXIsGKYntCDkLIRuMELJNC9CRXrxERV6OMOjvnNwnPHvJHgzHT7QXYXeriMbHDGnFFJKYYv+Pg0K KO2yc6RbTPg2NbHfZN1wfd4AGKuKKiAcS2N0ePTvW9 C8VNakSv8CSYRmDETrJqmlMKVIZEhhLD4EPV6bxyE2CD4ChNVmDRKiYGCsdNEfYZz2Z64lsCTlRFwnAM 0KICA+Pallavi+Lo7WAXYaCTTzFUHuWmKiQWFHWmWuU7OhB9NHc8NwT4XkYV63aRkaeiYtCAvaTH6YGK1wHQ QtSECFLJ0RdQZahS0zhiW3HUFfOPSGJtUnP70skFXb RWXsDZO5PYDhBv5DDDIhH9CicrOekHismfQqNNVpNFJJOX9FJKrkpqQhjMIkgCdbUN93cSunLU4TWt1Q LaSpFX3ljo8PiDFoJn1DBID0Tx8RMMFrNDOaTUZoRIM9BKXoNkBjODcnQUBpLFUnGKL0OURqYDYxZU9B BsRnYNDfJrF4ZBTdMANlWTWdfo2DAJZhODL6FkvkWF FvHIBhYRMxXFzrBQOvENSgLHT7GLAbYQHaLT0GGwEdSWIfTONoZBepPJLlWFMqgo7FXZZmKPAcPLW9Cq ViNZAvJBJmWIivRHNiSDD5GXe8VSThPUAaJT5EOqPdICCaXKpaRPCiXMMrSBCibk7ZJVKkYULfGZE6Vx AzJRQxYUDfCMxhOALdQRCaLkJpMFAkRTNjQE6DPgWf BRBeTMNjWWCyTSMhOCExay9DSZSvNTBjMqK6OdGqWAIzKIXkZFyqIMWgGIK1SUFrYKTeQJFoKU8FNnHv HHRjZTgyIRkfCXDoLKTgri3TPHHbICCwWMczNNEqAOPcMORcQPohUWPtJCA6BEU7CGPtMOQvZB1FOyYa IVJoOEr7WANaEKJhLSUcvw6CRGTtWCUaNHI2JxFwLX JnOVQgVNssJBOvBJXwDjw0CQQaVCOlRD7LVmQfDZQsLxGeJnKaATYeKQGzhc3VHERzWHInRFBgOsUlMZ OtXIBgALvxELHzCTPrDzF1IOItCPCdDX3VKxYdERNfDVM1WUSiPUSrTBJcpt1MWLKmRKP7UmQiSdVeTO OqDRZiOFmwNBRyBLFnRzJjTYHlQWAuYY0SMfOmPOCp PCOhYWZsELZnPHCvbz9VWACmYTN7CkHsCQLaWIMpULXzGMftEOQqXBQ9RXheZKUsGJTaMZ9ZEmDwHQDe CZE5YgCnXDFyGHPowu5SUZAxRNI1JMwyFZXnCMZcKLFuSGdgBZUpMBY9ZuluUVHeOAWjUJ9THxNnRRKr DaEdNHPlZWQyANGxox1VJRPdUFG6JOFcZiRaEDQoOX UtKZxeTYKoNTNwJQCxJFSoQMFnQZ7JAaUoQVWqLvD3PFxmKTNjCQNiqi7JKCOcOUG1NYD8AjAcLVYuMO DtNMboSAJmCLIhXiWdZPZhBCDkMG7GIhFdUPLuBaV2WVtiMGUsNNAscx3VEDCtKYV8ZoH7IZWnKBXhBQ FdPDpuSIYpBKWhPFM8UJIpBAHgRQ0LZlMnDAGpPzE9 WEUvUIGaOJSowy0DTOKdOLV8QRD1DOLvQMInRFIsCOz6rbSqiIAaDJd9KL9DC8FtkjQuMTFKFi6Mm716 VEMeMZEmUk5XC2vkPg2xEMFyPLCZYc4PWSg3ZjToODA4POLgLgb7W7KpLCd7ImE2EsbzQOM0NcW4HBW+ VOngUfLxSsjhAVZ0CButOuYaVXT3Frp1A7NoKWp6WM l0BY9hSZSEQq9+LNmwiBFfwVouYHWYFhW0RnZ0YUnyZQOCPx3Z ID Date Data Source [id number] 12/04/2020 11:20:11 AM EDT [facility] Name Value Range Interpretation Code Description Data Kayley rce(s) Supporting Document(s) Progress Note [facility] HJPZZw1vWrHFXyBx53/RTQrjXEYqz3YvEIujUXe8RWyvKYHcP0IgULS0kY4hSPK2TLmUGlApLfDqURNp lbm [file] ICAgICAgICAgICAgICAgICAgICAgICAgICAgICAgIC AgICAgICAgICAgICAgICAgICAgICAgICAgICAgICAgICANCiAgICAgICAgICAgICAgICAgICAgICAgIC AgICAgICAgICAgICAgICAgICAgICAgICAgICAgICAgICAgICAgICAgICAgICAgICAgICAgICAgICAgIC AgICAgICAgICAgICAgICANCiAgICAgICAgICAgICAg ICAgICAgICAgICAgICAgICAgICAgICAgICAgICAgICAgICAgICAgICAgICAgICAgICAgICAgICAgICAg ICAgICAgICAgICAgICAgICAgICAgICAgICANCiAgICAgICAgICAgICAgICAgICAgICAgICAgICAgICAg ICAgICAgICAgICAgICAgICAgICAgICAgICAgICAgIC AgICAgICAgICAgICAgICAgICAgICAgICAgICAgICAgICAgICANCiAgICAgICAgICAgICAgICAgICAgIC AgICAgICAgICAgICAgICAgICAgICAgICAgICAgICAgICAgICAgICAgICAgICAgICAgICAgICAgICAgIC AgICAgICAgICAgICAgICAgICANCiAgICAgICAgICAg ICAgICAgICAgICAgICAgICAgICAgICAgICAgICAgICAgICAgICAgICAgICAgICAgICAgICAgICAgICAg ICAgICAgICAgICAgICAgICAgICAgICAgICAgICANCiAgICAgICAgICAgICAgICAgICAgICAgICAgICAg ICAgICAgICAgICAgICAgICAgICAgICAgICAgICAgIC AgICAgICAgICAgICAgICAgICAgICAgICAgICAgICAgICAgICAgICANCiAgICAgICAgICAgICAgICAgIC AgICAgICAgICAgICAgICAgICAgICAgICAgICAgICAgICAgICAgICAgICAgICAgICAgICAgICAgICAgIC AgICAgICAgICAgICAgICAgICAgICANCiAgICAgICAg ICAgICAgICAgICAgICAgICAgICAgICAgICAgICAgICAgICAgICAgICAgICAgICAgICAgICAgICAgICAg ICAgICAgICAgICAgICAgICAgICAgICAgICAgICAgICANCiAgICAgICAgICAgICAgICAgICAgICAgICAg ICAgICAgICAgICAgICAgICAgICAgICAgICAgICAgIC AgICAgICAgICAgICAgICAgICAgICAgICAgICAgICAgICAgICAgICAgICANCjw/xBKxM5yplOHynaK7Q7 xoPl7YXr0QNB9yc1KuCDCxBBohfbGsSfkAXsDuAMAzJfwHQuh6QIxnXE7DpNPdH8NcI8RmGReoRR0UOF AkHEWyaSIaSMPaIURuWvD6DRAaKUilSY8WeCUsMYug YSStXSHsQW3QBBLfH533rbWaCT9JSy3GOzEcJG2cpc5EBThoPAPjCwrHVzo0SSjdIT9CoPOtmRYcSJGq NZKOKcGxZ6qkl2BgVbYdWHZKZZkfJM0Ic6AioOAoVTe+Yq0AYU0vg8MiRSzeNMJrXG2fqe5BRPtZDcCe K5NnaOgkUKVjo0saAWScNQ5tzUVrGUI8ECJwMGRjRD MkEM6tBUwrafKrOV8OTTN8TVyrKnAzNyDhJHGxGYqvOZVSNSqTRhOwW4Wwr9CdQvG6UFKsUfOrAKwcCO HfRgN2ZY60qQejVS7ZBVQjBIRsLZ98VQP3DGTgVn6DKn0VXyFrUS6umj1XFzTpMBQdTglZKni8IRyfVT 1IfLYxK7QouKHgh3lAQfLkN9HTPRW1NDWgAo9PYMNw RmHbGRSpVBrhNZ1hWIDjYJTZgUwrfzV6OK0ZDU9fvwRuZM3ACuJdNf2qXf5DNtKfZ7EsG8EwLECxTEDY FPfsDQ1FTIceVR3zHM8Fw2WNkJUznX6gro3CVRAqMURxEhmudm8FRrlsI6Y1jUbiJWYjBOirAMJFRWee YV1MYCXqLCG2IXHzCJVvMQYJXiHyQ32uBD3BZ8Stn8 3cZaM7SXDfPcInAHtjKP02nHpsbaPfkYJehSewNA4OJt2+DQplbmRvYmoNCnhyZWYNCjAgMjINCjAwMD FwEYDkHUDlIjI5OjXfTd4RNKRfPGLhVKInQhOfKKAxOAUfEWhaNIHfTDZ7YJXkBFAdOVEpKS8QBfTqOC XzXZj0HvHqCZKjGQSuos6YDKApNQOkMNJ5QqHqGBPm WAKnHKvdPUCkHVLmJgQ6IOYrEOEjGN6HNdGnENEyCRG1AREhDZNxMGRtgh5BDHPgWWQiOkimURToAASw PBZySCewFECwRXY1OZw2WOEpHKScVC1FDyUjGCXzBDWbPdrbWTLtZCRpbb5XVOXsXXHzQJLcWPPhAJFr JPArCYyqTFNpVEZ4BGG0DKSjDELfZU4QHgXdDAMeLM Y6EyPvFAEgIJWxvg4UONAlFHPbKnw7DHCkNTKpGDChOCzsSOMmSWS8Pvl7FGOkMMJmEV4MCoQmINFkHS t1XGZmIYAkPZSxqu4NUZFjAXLhJht4GASrAAGeAIAvGVjzLXReYAE4FCbaEPWxNGMrYW8MSqXgYSWlAF ghWDQoWXZqEVTpcf6ARSVfMYElOSvoZFOoBTGjBCOr CLtlMBHjEUN5Fka5UJFbTONtWJ7NHnCbEYCwZFp2STTeROBgIYIazj7WvSCwjMduqg7OOBxXJj6SbUuy UJQcTZsbPm0hoEPqWIHaVSNCGe1NzrFaONRuFMKYDOtcCHGhKIF9DtXyHRV1BLPfHZPmHpTiRQaeVKBh JPRzRBP9MhXqFvS7YZhiADPyABt9HOH3PIY3L9HwPx JbPGDdEyH8ESfuYgN+LT5uDOk+Qt2Bb6PdkyB5vcLuASesHWQ9HT9GIPMRE9JILz== ID Date Data Source [id number] 12/08/2020 10:14:[address] [facility] Hematopathology Report See Addendum Belo wName: WHITNEY ED ShadiAustinMRN: [id number] Number: [id number] Date: 12/04/2020 10:30Received Date: 12/04/2020 11:40Physician(s): ISAI [...] rendered thefinal diagnosis. Addendum 12/12/2020 Cytogenetics report [id number] shows that chromosome analysis revealed anormal male [...] Signed Out12/05/2020 InterpretationPERIPHERAL BLOOD: CBC performed at [facility] ([id number]),[address] [place] [address] on 12/04/20.WBC 4.4 K/uLRBC *3.95 M/uLHgb *12.3 [...] % Neutrophils 0.5 % Eosinophils 1.5 % Lrxrrgtsa14.0 % Lymphocytes 8.0 % Monocytes --------100.0 % Qualitative leukocytic changes: Some large granular lymphocytes arenoted. BONE MARROW ASPIRATE: Cellularity appears normal as judged by particles on aspirate films. Differential Count (500 cells):36.8 % Erythroid Precursors 0.6 % Blasts 2.2 % Promyelocytes 7.2 % N. Jbgkqencmi58.8 % N. Metamyelocytes and Band Forms21.0 % Zachary trophils 2.8 % Eosinophils and Precursors 0.2 % Basophils and Precursors 4.6 % Lymphocytes 0.4 % Monocytes 1.4 % Plasma Cells --------100.0 % Megakaryocytes appear normal with normal morphology.Erythroid maturation appears normoblastic.Myeloid maturation appears frame table operator and complete.Macrophages are unremarkable. MARROW BIOPSY: Biopsy [...] Out12/05/2020 InterpretationLymphoid Panel: Whitney [place] [id number] following markers were assayed: CD45 (gate), CD2, CD3, CD4, CD5, CD7,CD8, CD10, CD19, CD20,CD33, CD34, CD38, CD56, CD57, CD64, CD117, CD123, HLA- DR, [place], andLambda.# events: 21321Fgiocceoj: 99%Flow Cytometry Differential (CD45/SSC)Lymphocyte [place]: 13%CD45 dim [place]: 1%Monocyte [place]: 1%Granulocyte [place]: 75%Nucleated/Erythroid [place]: 6%The lymphocyte gate showsB-cells (CD19): 3%T-cells (CD3): 78%NK-cells (CD3-/CD56+): 17%[place]/Lambda Ratio: 2.5CD4/CD8 Ratio: 2.0Results: (expressed as % of lymphocyte gate)T-cell Markers: CD2 = 87, CD3 = 78, CD3/CD4 = 46, CD3/CD8 = 22, CD5 = 78,CD7 = 90, CD3/57 = 20B-cell markers: [place] = 2, Lambda = 1, CD19 = 3, CD20 = 7, CD19/10 = 1,CD19/CD5 = 0,CD38/CD20 = 5Light chain as % of B-Cells: CD19/[place] = 53, CD19/Lambda = 20CD19/CD5/[place] = 1, CD19/CD5/Lambda = 0CD19/CD10/[place] = 9, CD19/CD10/Lambda = 4NK cell Markers: CD56 = 29, CD57 = 29Other Markers: CD10 = 1, CD38 = 72Results: (expressed as % of CD45 dim gate)T-cell Markers: CD2 = 1, CD3 = 1, CD3/CD4 = 1, CD3/CD8 = 0, CD5 = 0, CD7 =4, CD3/57 = 0B-cell markers: [place] = 1, Lambda = 0, CD19 = 16, CD20 = 4, CD19/10 = 14,CD19/CD5 = 0,CD38/CD20 = 4Light chain as % of B-Cells: CD19/[place] = 3, CD19/Lambda = 3CD19/CD10/[place] = 0, CD19/CD10/Lambda = 0NK cell Markers: [...] were developed and theirperformance characteristics determined by [facility] Pathology department.They have not been cleared or approved by the US Food and DrugAdministration. The FDA has determined that such clearance or approval isnot necessary. Name Value Range Interpretation Code Description Data Kayley rce(s) Supporting Document(s) ID Date Data Source [id number] 12/04/2020 10:29:[address] [facility] Name Value Range Interpretation Code Description Data Kayley rce(s) Supporting Document(s) Leukocytes [#/volume] in Blood by Automated count 4.4 10*3/uL 4-10 [facility] Erythrocytes [#/volume] in Blood by Automated count 3.95 10*6/uL 4.6- 6.1 L [facility] Hemoglobin [Mass/volume] in Blood 12.3 g/dL 13.5-18 L [facility] Hematocrit [Volume Fraction] of Blood by Automated count 35.4 % 4 1-53 L [facility] Erythrocyte mean corpuscular volume [Entitic volume] by Auto mated count 89.6 fL 80-96 [facility] Erythrocyte mean corpuscular hemoglobin [Entitic mass] by Automated count 31.1 pg 27-33 [facility] Erythrocyte mean corpuscular hemoglobin concentration [Mass/volume] by Automated count 34.7 g/dL 32.0-[facility] distribution width [Ratio] by Automated count 14.1 % 11.5-14.5 [facility] Platelets [#/volume] in Blood by Automated count 258 10*3/uL 150-400 [facility] Differential cell count method - Blood [facility] Neutrophils/100 leukocytes in Blood by Automated count 65 % [facility] Lymphocytes/100 leukocytes in Blood by Automated count 20 % [facility] Monocytes/100 leukocytes in Blood by Automated count 13 % [facility] Eosinophils/100 leukocytes in Blood by Automated count 1 % [facility] Basophils/100 leukocytes in Blood by Automated count 1 % [facility] Neutrophils [#/volume] in Blood by Automated count 2.89 10*3/uL 1.8-7 .0 [facility] Lymphocytes [#/volume] in Blood by Automated count 0.90 10*3/uL 1.2-4 .0 L [facility] Monocytes [#/volume] in Blood by Automated count 0.58 10*3/uL 0-0.8 [facility] Eosinophils [#/volume] in Blood by Automated count 0.03 10*3/uL 0-0.5 [facility] Basophils [#/volume] in Blood by Automated count 0.03 10*3/uL 0-0.2 [facility] Nucleated erythrocytes/100 leukocytes [Ratio] in Blood by Automated count 0 /100{WBCs} 0-0 [facility] ID Date Data Source [id number] 12/04/2020 11:04:15 AM EDT [facility] Name Value Range Interpretation Code Description Data Kayley rce(s) Supporting Document(s) Albumin [Mass/volume] in Serum or Plasma by Bromocresol green (BCG) dye binding method 4.7 g/dL 3.5-5.2 [facility] Bilirubin.total [Mass/volume] in Serum or Plasma 0.5 mg/dL <1.2 [facility] Calcium [Mass/volume] in Serum or Plasma 9.2 mg/dL 8.8-10.2 [facility] Chloride [Moles/volume] in Serum or Plasma 93 mmol/L 98-107 L [facility] Creatinine [Mass/volume] in Serum or Plasma 0.86 mg/dL 0.70-1.20 [facility] Glucose [Mass/volume] in Serum or Plasma 139 mg/dL 70-140 [facility] Alkaline phosphatase [Enzymatic activity/volume] in Serum or Plasma 80 U/L 40-129 [facility] Potassium [Moles/volume] in Serum or Plasma 4.7 mmol/L 3.4-5.1 [facility] Protein [Mass/volume] in Serum or Plasma 7.4 g/dL 6.4-8.3 [facility] Sodium [Moles/volume] in Serum or Plasma 130 mmol/L 136-145 L [facility] Aspartate aminotransferase [Enzymatic activity/volume] in Serum or Plasma 30 U/L <40 [facility] Urea nitrogen [Mass/volume] in Serum or Plasma 14 mg/dL 8-23 [facility] Osmolality of Serum or Plasma by calculation 273 mosm/kg 275-300 L [facility] Creatinine/Urea nitrogen [Mass Ratio] in Serum or Plasma 16 [facility] Bicarbonate [Moles/volume] in Serum 26 mmol/L 22-29 [facility] Alanine aminotransferase [Enzymatic activity/volume] in Seru m or Plasma 25 U/L <41 [facility] Anion gap 3 in Serum or Plasma 11 mmol/L 8-15 [facility] Glomerular filtration rate/1.73 sq M pre dicted among non-blacks [Volume Rate/Area] in Serum or Plasma by Creatinine-based formula (MDRD) 87 mL/min/1.73m2 >60 [facility] Glomerular filtration rate/1.73 sq M pre dicted among blacks [Volume Rate/Area] in Serum or Plasma by Creatinine-based formula (MDRD) >60 [facility] ID Date Data Source [id number] 12/04/2020 11:04:15 AM EDT [facility] Name Value Range Interpretation Code Description Data Kayley rce(s) Supporting Document(s) Urate [Mass/volume] in Serum or Plasma 4.6 mg/dl 3.4-7.0 [facility] ID Date Data Source [id number] 12/04/2020 12:09:55 PM EDT [facility] Name Value Range Interpretation Code Description Data Kayley rce(s) Supporting Document(s) Lactate dehydrogenase [Enzymatic activit y/volume] in Serum or Plasma by Lactate to pyruvate reaction 222 U/L 122-225 [facility] ID Date Data Source [id number] 12/09/2020 09:06:04 PM EDT [facility] Name Value Range Interpretation Code Description Data Kayley rce(s) Supporting Document(s) Tien Ryan virus DNA [#/volume] (viral load) in Serum or Plasma by Probe and target amplification method 148 copies/mL Negative [facility] (NOTE)The quantitative range of this ass ay is 100 to 1 million copies/mL.This test was developed and its performance characteristicsdetermined by [employer]. It has not been cleared or approved by theod and Drug Administration. Tien Ryan virus DNA [Log #/volume] (v iral load) in Unspecified specimen by Probe and target amplification method 2.170 log10 copy/mL [facility] (NOTE)Performed At: [address] [id number] Sanjai MD Ph:[phone] ID Date Data Source [id number] [facility] Value Range Interpretation Code Description Data Kayley rce(s) Supporting Document(s) Hepatitis A virus IgM Ab [Presence] in Serum or Plasma by Im munoassay Non Reactive [facility] No acute infection, susceptible to infec tion. Hepatitis B virus core IgM Ab [Presence] in Serum or Plasma by Immunoassay Non Reactive [facility] IgM antibodies to HBc were not detected, does not exclude the possibility of exposure to HBV. Hepatitis C virus Ab [Presence] in Serum or Plasma by Immuno assay Non Reactive [facility] No serological evidence of active infect ion. If recent exposure is suspected, test for HCV RNA. Hepatitis B virus surface Ag [Presence] in Serum or Plasma b y Immunoassay Non Reactive [facility] No active or previous infection. Suscept ible to infection. ID Date Data Source [id number] 12/09/2020 04:04:[address] [facility] Molecular Diagnostics ReportName: ED BROWNMRN: [id number] Number: [id number] Date: 12/04/2020 00:00Received Date: 12/05/2020 14:31Physician(s): ISAI BLAIR MBBS MADHIRA, BHASKARA, MBBSCopy To:FIDE VU MDSpecimen(s) ReceivedA: Bone Marrow - T-cell - [id number] OF STUDY: T-cell Receptor Gamma Chain Gene - PCR AssaySPECIMEN TYPE: Bone Marrow (#[id number])RESULTS: Positive Family I & III / J [...] Gamma Chain gene (van Ilyaen et al. Maqjnrmy48:9084-5990, 2003). A positive result is expected when [...] validated and authorized for clinical useby the [facility] of [facility] ([facility]).rw/jsElectronically Signed By Ez Mejia M.D. Attending Pathologist 12/09/2020 16:04:31 Name Value Range Interpretation Code Description Data Kayley rce(s) Supporting Document(s) ID Date Data Source [id number] 12/11/2020 05:55:[address] [facility] Cytogenetics ReportName: DELBERT OLSONMRN: [id number] Number: [id number] Date: 12/04/2020 00:00Received Date: 12/04/2020 11:54Physician(s): ISAI BLAIR MBBS MADHIRA, BHASK[place], MBBSSpecimen(s) ReceivedA: Bone Marrow - Karyotype analysis and FISHClinical Ynzevnl27-wldp-fci patient with NK T-cell lymphoma.TEST REQUESTED/PERFORMED: Chromosome analysis and fluorescence in situhybridization (FISH) InterpretationChromosome analysis revealed a normal male chromosome complement in allcells analyzed. As no chromosomal abnormalities were detected, the FISHstudy was canceled by Dr. Suresh Vu. Please correlate with the concurrentHematopathology report, [id number]. Electronically Signed By Josr Manley, PhD Attending Pathologist 12/11/2020 17:55:36Results and ISCN (2016) NomenclatureChromosome Ujhdluuz69,XY[20] DescriptionA normal male chromosome complement was observed [...] rce(s) Supporting Document(s) ID Date Data Source [id number] 11/11/2020 11:14:00 AM EDT [facility] ([facility], ) Name Value Range Interpretation Code Description Data Kayley rce(s) Supporting Document(s) Bacteria identified in Nose by Aerobe culture Laboratory test re sult Normal (applies to non-numeric results) [facility] ) FULL REPORT IN LAB NOTES ([facility] 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 Please see complete report from [facility] hematopathology department [id number], scanned in EMR under pathology module. 11/20/20201835 [...] process/lymphoma, the case will be sent to [facility] hematopathology department for consultation and further [...] 11/14/2020925 CLINICAL DIAGNOSIS Mucosal biopsy 11/12/2020 - 3247 GROSS DIAGNOSIS Received in formalin labeled "Ed Olson and designated left nasal mucosa" is a 0.9 x 0.6 x 0.2 cm. portion of pale marr soft tissue. Sectioned all in one. - 11/12/20201437 Signed Daniel La MD 11/14/2020925 ID Date Data Source [id number] 11/11/2020 10:00:00 AM EDT [facility] ([facility], ) Name Value Range Interpretation Code Description Data Kayley rce(s) Supporting Document(s) Surgical pathology study Laboratory test result [facility] ([facility], ) FINAL DIAGNOSIS Left nasal mucosa, biopsy: [...] process/lymphoma, the case will be sent to [facility] hematopathology department for consultation and further [...] MD 11/14/2020 0909 ID Date Data Source [id number] 11/20/2020 04:47:00 PM EDT [facility] Hematopathology Report See Addendum Prem Briggs: ED OLSONMRN: [id number] Number: [id number] Date: 11/11/2020 00:00Received Date: 11/14/2020 12:54Physician(s): HAGHIR,MD JIMMY ADAM SHAHANDEH F,MDCopy To:[facility]imen[facility]s) ReceivedA: Slides received for consultation, KB; RECEIVED 4 SLIDES AND 1 BLOCK OFLEFT NASAL MUCOSA BIOPSY LABELED [id number] COLLECTED ON 11/11/2020 FROM [facility] CONSULTATION WITH DR. LA DiagnosisA. Left nose, core biopsy: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, nasal typeSlizzeth Michel M.D.;Resident PathologistElectronically Signed By Nesha Pedraza MD AttendingPathologist 11/20/2020 16:47:04The attending pathologist named above attests that he/she has personallyreviewed the relevant preparation(s) for the specimen(s) and rendered thefinal diagnosis. Addendum 12/17/2020 T-cell PCR is negative for clonal T cells ([id number]). The diagnosisremains unchanged. Addendum Electronically Signed By: Millicent Hargrove M.D. 12/17/2020 09:55 Microscopic DescriptionSections show necrotic soft tissue fragments infiltrated by atypicalmedium-sized cells with irregular and hyperchromatic nuclei and variableamounts of cytoplasm. Numerous fungal hyphae, with morphology suggestiveof aspergillus species, are also present. Immunohistochemical staininghighlights the atypical cells with CD56, CD2, CD43 and JUAN-SARMAD. Background CD3, CD5 positive T cells are also present. CD20 rachel rare Bcells. ProceduresThis report may include one or more immunohistochemical stain/fluorochromeconjugated monoclonal antibody results that use analyte specific reagents.All positive and negative controls have been reviewed by the attendingpathologist and are satisfactory. The tests were developed and theirperformance characteristics determined by [facility] Pathology department.They have not been cleared or approved by the US Food and DrugAdministration. The FDA has determined that such clearance or approval isnot necessary. Name Value Range Interpretation Code Description Data Kayley rce(s) Supporting Document(s) ID Date Data Source [id number] 12/16/2020 03:31:[address] [facility] Molecular Diagnostics ReportName: ED BROWNMRN: [id number] Number: [id number] Date: 11/11/2020 00:00Received Date: 12/11/2020 13:22Physician(s): DANIEL LA MD HAGHIR, SHAHANDEH F[facility] [place] To:[facility] [place]) ReceivedA: Formalin Fixed Tissue - Left Nasal Mucosa Biopsy - T-cell - [id number] of Study: T-cell Receptor Gamma Chain PCR Assay SPECIMEN TYPE: Formalin Fixed Tissue - left nasal mucosa biopsy(#[id number]), Block # [id number]: Negative Family I & III / J [...] Gamma Chaingene (van Dongen et al. Leukemia 17:7369-2133, 2003). A quality controlamplification showed DNA of [...] and authorized for clinical use by the [facility] Dept.of Health ([facility]).rw/jsElectronically Signed By Ez Mejia M.D. Attending Pathologist 12/16/2020 15:31:09 Name Value Range Interpretation Code Description Data Kayley rce(s) Supporting Document(s) ID Date Data Source [id number] 09/22/2020 02:14:00 PM EDT [facility] ([facility], ) Name Value Range Interpretation Code Description Data Kayley rce(s) Supporting Document(s) Bacteria identified in Nose by Aerobe culture Laboratory test re sult Normal (applies to non-numeric results) [facility] ([facility], ) <content>FULL REPORT IN LAB [...] FOR ESBL</content>
<content></content> ID Date Data Source [id number] 09/16/2020 08:19:49 AM EDT [facility] Name Value Range Interpretation Code Description Data Kayley rce(s) Supporting Document(s) &PDF [facility] PJPNRl4mSdAFYsWa36/JHLhtIEXft5UzASenMXg0EMhhNFSaG4GqhGqiUYhYW7lEVhWxV7DGJTaIPzMN vci [file] AgICAgICAgICAgICAgICAgICAgICAgICAgICAgICAgICAgICAgICAgICAgICAgICAgICAgICAgICAgIC AgICAgICAgICANCiAgICAgICAgICAgICAgICAgICAg ICAgICAgICAgICAgICAgICAgICAgICAgICAgICAgICAgICAgICAgICAgICAgICAgICAgICAgICAgICAg ICAgICAgICAgICAgICAgICAgICANCiAgICAgICAgICAgICAgICAgICAgICAgICAgICAgICAgICAgICAg ICAgICAgICAgICAgICAgICAgICAgICAgICAgICAgIC AgICAgICAgICAgICAgICAgICAgICAgICAgICAgICANCiAgICAgICAgICAgICAgICAgICAgICAgICAgIC AgICAgICAgICAgICAgICAgICAgICAgICAgICAgICAgICAgICAgICAgICAgICAgICAgICAgICAgICAgIC AgICAgICAgICAgICANCiAgICAgICAgICAgICAgICAg ICAgICAgICAgICAgICAgICAgICAgICAgICAgICAgICAgICAgICAgICAgICAgICAgICAgICAgICAgICAg ICAgICAgICAgICAgICAgICAgICAgICANCiAgICAgICAgICAgICAgICAgICAgICAgICAgICAgICAgICAg ICAgICAgICAgICAgICAgICAgICAgICAgICAgICAgIC AgICAgICAgICAgICAgICAgICAgICAgICAgICAgICAgICANCiAgICAgICAgICAgICAgICAgICAgICAgIC AgICAgICAgICAgICAgICAgICAgICAgICAgICAgICAgICAgICAgICAgICAgICAgICAgICAgICAgICAgIC AgICAgICAgICAgICAgICANCiAgICAgICAgICAgICAg ICAgICAgICAgICAgICAgICAgICAgICAgICAgICAgICAgICAgICAgICAgICAgICAgICAgICAgICAgICAg ICAgICAgICAgICAgICAgICAgICAgICAgICANCiAgICAgICAgICAgICAgICAgICAgICAgICAgICAgICAg ICAgICAgICAgICAgICAgICAgICAgICAgICAgICAgIC AgICAgICAgICAgICAgICAgICAgICAgICAgICAgICAgICAgICANCiAgICAgICAgICAgICAgICAgICAgIC AgICAgICAgICAgICAgICAgICAgICAgICAgICAgICAgICAgICAgICAgICAgICAgICAgICAgICAgICAgIC AgICAgICAgICAgICAgICAgICANCjw/iDMiR2vmaXOi hxN7F6iyQg8VVm2OFX0hp0ExMNQeZOmvtpQqMhvMHiFiHFHjTduLXqt6EOncYZ4XvXAtS4DxW6FaWBjl QY6DZVTqBPYpuLEiHSGtQVXvQcA1TNLiBWvfBD3UfXHxQLuwYMUfNFXjQjDeYJRzOG1PVIIxQ446erGb Ak3TRb3HWoJkZL0mbe8FDryoPBDxKlxGGey4JTujQQ 6XdYZjT4LwcVRwn6cLCjUwM0XTMYJ3WXPpPz2VJQApXmNxUCBwROczIH9uYMOuXVMVpQhludH3IB2BRY 5qefXuMP9GWtGsTd1cWc9EIxXnJ1RpN5NxVWHlWFKKKRybYH9HJNZpYPO0QSOfAjToWRJZPvJrN71gJJ 6PL9Cls58rCtC9VCPcLlLrNVaaEB06wErpgkSarELr hCsyVZ3GHg5+VEkotwNtGdgNXcagNKRWWsDvRyeWKvQjDPLrJLJnRQYmCnZ9BxOmZc8FKOWgEEUoOBLt KhWjWJOaBOQzMYfwRHKzFFL6AXZcGIQfTIIxAE9EQqXyYWLoALR6EIefGACdVFCoer0JHHNgYSXiGFY9 HwYlYRBtGDMgFBjyBCZyDMIrGHifXGVkMYEcBT4TTt RuCNCcNFAbUrNpTEUaIOGraq8VTLLpJFKfTceuRfXyFHAkQLKpRPrjCHZsRMU1ASI4VWYuUMOcJW3YJy ObBJEmFZx7GcWiBUIoBUTour3WAHOsOIJoALX5MMUdDKNhULIpAPfxYDOqQKR4VaZmFPMpHUErIF3HWx MpBIYkKUBlRAVnNZPrGYHmzb2WBNSlZHJbZIDdHjZx IBJqVGVhSNelHVNuKGVhIlVgCJAkCZGhFE2KGvVyQOKiSTK0DWtuCWTqQIHtzb2ZBHSkBMVpZJz2KLOo RJSuTJTcEAzbQDFvFHTaQFF5RYWmHCSgXY3TEbHmXGKoKXXjRRMjBAYlRVQnze5NNBVrDNThZwJvRLGz YHYpUMSmYMmoKBJhHAQbSgqdPSYqHBKxJR6REbVsNQ GzAUF1KVvnTADsTPCqkk3IVCDfYJYyDTWmUXOpAVKyPPApOUukKJMfDWR4RwN3ZBSvBJOhEQ2AHzCrWZ IzZBH3UPPmTMQpUHEjmx1KCKVeWDFlPLe2MmRoMMDpLMMvMBduEHHrRPE0ABTrWDPoFRLvDD2KUzNgUI FkCRI0XYvrBSLmSHBxxv1PSJXeYDKjIjXlJwIySILu BDEtGIt8ubUyfWRlPWw3LZ5PJ6VrkbUkPzjSVi2Da249WTN4GEDxIz7CJ6daTq2gULKoHMUPDc4XOCl8 U2N0MHT4APFmDBScGaJ4UsW9UuL7Ppt0FJJjSxCaLuP+PJrvFyQmPve3PdR5ZqY6JJJjANhhTMf9CXhw J0WrUILnQR4tOZDOHc2+DZcdcNAupDgyPIXBSwN3PbomCBfuHWLFXl2U ID Date Data Source [id number] 07/18/2020 08:37:55 PM EDT [facility] Name Value Range Interpretation Code Description Data Kayley rce(s) Supporting Document(s) NT PRO BNP 181 pg/mL (0-125) H [facility] ID Date Data Source [id number] 07/18/2020 08:37:55 PM EDT [facility] Name Value Range Interpretation Code Description Data Kayley rce(s) Supporting Document(s) SODIUM 138 mmol/L (136-145) [facility] POTASSIUM 4.6 mmol/L (3.6-5.2) [facility] CHLORIDE 100 mmol/L (100-108) [facility] CO2 27 mmol/L (22-31) [facility] ANION GAP 11 mmol/L (7-16) [facility] UREA NITROGEN 12 mg/dL (7-24) [facility] CREATININE 0.82 mg/dL (0.80-1.30) [facility] BUN/CREAT RATIO 14.6 RATIO (10.0-20.0) [facility] GLUCOSE 101 mg/dL (70-99) H [facility] CALCIUM 9.2 mg/dL (8.4-10.2) [facility] GFR >60 ml/min/1.73m2 (>59) [facility] GFR ( AMER) >60 ml/min/1.73m2 (>59) [facility] GFR INTERPRETATION [facility] --NORMAL KIDNEY FUNCTION OR MILD DISEASE - GFR >OR= 60CHRONIC KIDNEY DISEASE - GFR 15 - 59RENAL FAILURE - GFR <15 Est. GFR calculation based on the MDRDstudy equation, which assumes a steadystate for creatinine. Est. GFR should notbe used for medication dosing. ID Date Data Source [id number] 07/18/2020 08:26:03 PM EDT [facility] Name Value Range Interpretation Code Description Data Kayley rce(s) Supporting Document(s) WBC 6.1 10*3/uL (4.1-11.0) [facility] RBC 4.48 10*6/uL (4.60-6.10) L [facility] HGB 14.0 g/dL (13.5-18.0) [facility] HCT 42.0 % (41.0-53.0) [facility] MCV 93.7 fL (80.0-95.0) [facility] MCH 31.1 pg (27.0-32.0) [facility] MCHC 33.2 g/dL (32.0-36.0) [facility] RDW 13.6 % (10.5-14.5) [facility] PLT 262 10*3/uL (150-450) [facility] MPV 8.9 fL (7.1-10.7) [facility] ID Date Data Source [id number] 06/09/2020 01:09:00 PM EDT [facility], ) Name Value Range Interpretation Code Description Data Kayley rce(s) Supporting Document(s) Surgical pathology study Laboratory test result [facility] ([facility], ) FINAL DIAGNOSIS A - Sinus contents, [...] & APTT 06/05/2020 12:00:00 AM EDT eCW1 ([facility]) Name Value Range Interpretation Code Description Data Kayley rce(s) Supporting Document(s) 13.2 12.5-14.3 eCW1 ([facility]) 0.99 eCW1 ([facility]) 26.8 24.2-38.5 eCW1 ([facility]) ID Date Data Source [id number] 06/05/2020 12:00:00 AM EDT eCW1 ([facility]) Name Value Range Interpretation Code Description Data Kayley rce(s) Supporting Document(s) Hemoglobin A1c/Hemoglobin.total in Blood 5.5 eCW1 ([facility]) ID Date Data Source Comprehensive Metabolic Profile (CMP) 06/05/2020 12:00:00 AM EDT eCW1 ([facility]) Name Value Range Interpretation Code Description Data Kayley rce(s) Supporting Document(s) 0.72 0.70-1.30 CREATININE FOR GFR eCW1 ([facility]) 106 70-100 GLUCOSE, FASTING eCW1 ([facility]) 13 7-18 BLOOD UREA NITROGEN eCW1 ([facility]) 138 136-145 SODIUM LEVEL eCW1 ([facility]) 101 98-107 CHLORIDE LEVEL eCW1 ([facility]) > 60.0 >49 GLOMERULAR FILTRATION RATE eCW 1 ([facility]) 4.5 3.5-5.1 POTASSIUM SERUM eCW1 ([facility]) 24 7-37 AST/SGOT eCW1 ([facility]) 37 12-78 ALT/SGPT eCW1 ([facility]) 9.2 8.8-10.2 CALCIUM LEVEL eCW1 ([facility]) 31 21-32 CARBON DIOXIDE LEVEL eCW1 ([facility]) 4.2 3.2-5.2 ALBUMIN eCW1 ([facility]) 0.7 0.2-1.0 BILIRUBIN,TOTAL eCW1 ([facility]) 7.6 6.4-8.2 TOTAL PROTEIN eCW1 ([facility]) 70 45-117 ALKALINE PHOSPHATASE eCW1 ([facility]) 1.2 ALBUMIN/GLOBULIN RATIO eCW1 ([facility]) ID Date Data Source CBC with Differential 06/05/2020 12:00:00 AM EDT eCW1 ([facility]) Name Value Range Interpretation Code Description Data Kayley rce(s) Supporting Document(s) 8.8 4.0-10.0 WHITE BLOOD COUNT eCW1 ([facility]) 4.58 4.30-6.10 RED BLOOD COUNT eCW1 ([facility]) 30.3 27.0-33.0 MEAN CORPUSCULAR HEMOGLOB IN eCW1 ([facility]) 92.4 80.0-96.0 MEAN CORPUSCULAR VOLUME e CW1 ([facility]) 42.3 42.0-52.0 HEMATOCRIT eCW1 ([facility]) 13.9 13.5-17.5 HEMOGLOBIN eCW1 ([facility]) 32.9 32.0-36.5 MEAN CORPUSCULAR HGB CONC eCW1 ([facility]) 291 150-450 PLATELET COUNT, AUTOMATED eCW1 ([facility]) 13.9 11.5-14.5 RED CELL DISTRIBUTION WID TH eCW1 ([facility]) 9.9 2.0-8.0 MONO % eCW1 ([facility]) 0.0 0.0-3.0 EOS % eCW1 ([facility]) 76.8 36.0-66.0 NEUTROPHILS % eCW1 ([facility]) 12.5 24.0-44.0 LYMPH % eCW1 ([facility]) 0.9 0.0-0.8 MONO # eCW1 ([facility]) 1.1 1.5-5.0 LYMPH # eCW1 ([facility]) 6.8 1.5-8.5 NEUTROPHILS # eCW1 ([facility]) 0.2 0.0-1.0 BASO % eCW1 ([facility]) 0.0 0.0-0.5 EOS # eCW1 ([facility]) 0.0 0.0-0.2 BASO # eCW1 ([facility]) ID Date Data Source [id number] 06/05/2020 12:00:00 AM EDT eCW1 ([facility]) Name Value Range Interpretation Code Description Data Kayley rce(s) Supporting Document(s) 285 <125 eCW1 ([facility]) ID Date Data Source [id number] 06/04/2020 12:25:00 PM EDT [facility] Name Value Range Interpretation Code Description Data Kayley rce(s) Supporting Document(s) SARS coronavirus 2 RNA Detected [facility] This lab was ordered by [facility] and reported by [facility]. ID Date Data Source [id number] 05/13/2020 12:09:00 PM EST [facility] ([facility], ) Name Value Range Interpretation Code Description Data Kayley rce(s) Supporting Document(s) Creatinine For GFR 0.66 mg/dL 0.70-1.30 Below low normal [facility] ([facility], ) Glomerular Filtration Rate Laboratory test result Normal (applies to non- numeric results) [facility], [facility] <content>Units are mL/min/1.73 m2</content>
<content></content>
<content>Chronic Kidney Disease Staging per NKF:</content>
<content></content>
<content>Stage I & II GFR >=60 Normal to Mildly Decreased</content>
<content>Stage III GFR 30- 59 Moderately Decreased</content>
<content>Stage IV GFR 15-29 Severely Decreased</content>
<content>Stage V GFR <15 Very Little GFR Left</content>
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
<content></content> ID Date Data Source [id number] 05/13/2020 12:09:00 PM EST [facility] ([facility], ) Name Value Range Interpretation Code Description Data Kayley rce(s) Supporting Document(s) Urea nitrogen [Mass/volume] in Serum or Plasma 6 mg/dL 7-18 Below low normal [facility] ([facility]) ID Date Data Source [id number] 05/12/2020 01:30:00 PM EST [facility] ([facility], ) Name Value Range Interpretation Code Description Data Kayley rce(s) Supporting Document(s) Surgical pathology study Laboratory test result [facility] ([facility], ) FINAL DIAGNOSIS Nasal polyp, left, removal: [...] MD 05/16/2020 1246 ID Date Data Source [id number] 03/04/2020 12:00:00 AM EST [facility] Name Value Range Interpretation Code Description Data Kayley rce(s) Supporting Document(s) SARS-CoV2 Rapid Antigen [facility] This lab was reported by Alexis Dale. ID Date Data Source HEPATITIS A IgG 02/27/2020 12:00:00 AM EST eCW1 ([facility]) Name Value Range Interpretation Code Description Data Kayley rce(s) Supporting Document(s) Negative Negative HEPATITIS A IgG TOTAL eCW 1 ([facility]) ID Date Data Source HEPATITIS C VIRUS AB SCRN MEDICARE 02/27/2020 12:00:00 AM ES T eCW1 ([facility]) Name Value Range Interpretation Code Description Data Kayley rce(s) Supporting Document(s) 0.1 <0.8 HEP C VIRUS AB SCREEN MED ICARE eCW1 ([facility]) ID Date Data Source HEPATITIS B SURFACE ANTIGEN 02/27/2020 12:00:00 AM EST eCW1 ([facility]) Name Value Range Interpretation Code Description Data Kayley rce(s) Supporting Document(s) NEGATIVE NEGATIVE HEPATITIS B SURFACE ANTIG EN eCW1 ([facility]) ID Date Data Source HEPATITIS B SURFACE ANTIBODY 02/27/2020 12:00:00 AM EST eCW1 ([facility]) Name Value Range Interpretation Code Description Data Kayley rce(s) Supporting Document(s) NEGATIVE POSITIVE HEPATITIS B SURFACE ANTIB TRI eCW1 ([facility]) ID Date Data Source HEPATITIS A ANTIBODY IGM 02/27/2020 12:00:00 AM EST eCW1 ([facility]) Name Value Range Interpretation Code Description Data Kayley rce(s) Supporting Document(s) NEGATIVE NEGATIVE HEPATITIS A ANTIBODY IGM eCW1 ([facility]) ID Date Data Source CT Maxillofacial w/out Contrast 02/19/2020 12:00:00 AM EST e CW1 ([facility]) Name Value Range Interpretation Code Description Data Kayley rce(s) Supporting Document(s) eCW1 ([facility]) ID Date Data Source PSA SCREENING 02/12/2020 12:00:00 AM EST eCW1 ([facility]) Name Value Range Interpretation Code Description Data Kayley rce(s) Supporting Document(s) 1.71 < 4.00 eCW1 ([facility]) ID Date Data Source LIPID PANEL (CARDIAC RISK) 02/12/2020 12:00:00 AM EST eCW1 ( [facility]) Name Value Range Interpretation Code Description Data Kayley rce(s) Supporting Document(s) Triglyceride [Mass/volume] in Serum or Plasma by calculation 82 <150 eCW1 ([facility]) Cholesterol in LDL [Mass/volume] in Serum or Plasma by calculation 71 <100 eCW1 ([facility]) 87 eCW1 ([facility]) Cholesterol in HDL [Moles/volume] in Serum or Plasma 97 >40 eCW1 ([facility]) Cholesterol [Moles/volume] in Serum or Plasma 184 <200 eCW1 ([facility]) 1.896 <5 eCW1 ([facility]) ID Date Data Source FREE T4 & TSH PANEL 02/12/2020 12:00:00 AM EST eCW1 ([facility]) Name Value Range Interpretation Code Description Data Kayley rce(s) Supporting Document(s) 0.528 0.358-3.740 eCW1 ([facility]) 0.99 0.76-1.46 eCW1 ([facility]) ID Date Data Source CPK CREATINE PHOSPHOKINASE 02/12/2020 12:00:00 AM EST eCW1 ( [facility]) Name Value Range Interpretation Code Description Data Kayley rce(s) Supporting Document(s) 76 39-113 eCW1 ([facility]) Procedure Social History Code Duration Value Status Description Data Source(s ) Smoking 12/28/2020 12:00:00 AM EDT Former Smoker completed Former Smoker eCW1 ([facility]) Smoking 12/23/2020 12:00:00 AM EDT Former Smoker completed Former Smoker eCW1 ([facility]) Smoking 12/02/2020 12:00:00 AM EDT Former Smoker completed Former Smoker eCW1 ([facility]) Smoking 12/02/2020 12:00:00 AM EDT Former Smoker completed Former Smoker eCW1 ([facility]) Smoking 12/02/2020 12:00:00 AM EDT Former Smoker completed Former Smoker eCW1 ([facility]) Alcohol intake 07/18/2020 12:00:00 AM EDT Current drinker of al cohol (finding) completed Current drinker of alcohol (finding) [facility] Smoking 06/05/2020 12:00:00 AM EDT Former Smoker completed Former Smoker eCW1 ([facility]) Smoking 06/05/2020 12:00:00 AM EDT Former Smoker completed Former Smoker eCW1 ([facility]) Smoking 06/05/2020 12:00:00 AM EDT Former Smoker completed Former Smoker eCW1 ([facility]) Smoking 06/05/2020 12:00:00 AM EDT Former Smoker completed Former Smoker eCW1 ([facility]) Smoking 06/05/2020 12:00:00 AM EDT Former Smoker completed Former Smoker eCW1 ([facility]) Smoking 02/27/2020 12:00:00 AM EST Former Smoker completed Former Smoker eCW1 ([facility]) Smoking 02/27/2020 12:00:00 AM EST Former Smoker completed Former Smoker eCW1 ([facility]) Smoking 02/27/2020 12:00:00 AM EST Former Smoker completed Former Smoker eCW1 ([facility]) Smoking 02/27/2020 12:00:00 AM EST Former Smoker completed Former Smoker eCW1 ([facility]) Smoking 02/19/2020 12:00:00 AM EST Former Smoker completed Former Smoker eCW1 ([facility]) Smoking 02/19/2020 12:00:00 AM EST Former Smoker completed Former Smoker eCW1 ([facility]) Smoking 02/12/2020 12:00:00 AM EST Former Smoker completed Former Smoker eCW1 ([facility]) Alcohol intake 01/15/2020 12:00:00 AM EST Yes completed [facility] Cigarette pack-years 01/15/2020 12:00:00 AM EST UNK completed [facility] Cigarettes smoked current (pack per day) - Reported 01/15/20 20 12:00:00 AM EST UNK completed [facility] Smoking 01/15/2020 12:00:00 AM EST Former smoker completed Former smoker [facility] Smoking 01/01/2020 12:00:00 AM EDT Former Smoker completed Former Smoker eCW1 ([facility]) Smoking 01/01/2020 12:00:00 AM EDT Former Smoker completed Former Smoker eCW1 ([facility]) Smoking 01/01/2020 12:00:00 AM EDT Former Smoker completed Former Smoker eCW1 ([facility]) Smoking 01/01/2020 12:00:00 AM EDT Former Smoker completed Former Smoker eCW1 ([facility]) Vital Signs ID Date Data Source UNK Name Value Range Interpretation Code Description Data Source(s) Body height 68 [in_i] 68 [in_i] [facility], ) 5'8" Body weight 86.184 kg 86.184 kg [facility] Body surface area Derived from formula 2.00 m2 2.00 m2 SANDRITA ([facility], ) Body weight 190.00 [lb_av] 190.00 [lb_av] MAINEEN T ([facility]) Body mass index (BMI) [Ratio] 28.9 kg/m2 28.9 k g/m2 [facility] ([facility], ) [place] body weight 154 [lb_av] 154 [lb_av] MEDEN T ([facility]) Body weight 188 [lb_av] 188 [lb_av] eCW1 ([facility]) Body weight 85.28 kg 85.28 kg eCW1 ([facility]) Body height 70.5 [in_i] 70.5 [in_i] eCW1 ([facility]) Body mass index (BMI) [Ratio] 26.59 kg/m2 26.59 kg/m2 W1 ([facility]) Heart rate 67 /min 67 /min eCW1 ([facility]) Respiratory rate 18 /min 18 /min eCW1 ([facility]) Body temperature 99 [degF] 99 [degF] eCW1 ([facility]) Systolic blood pressure 128 mm[Hg] 128 mm[Hg] e CW1 ([facility]) Diastolic blood pressure 62 mm[Hg] 62 mm[Hg] eCW1 ([facility]) Systolic blood pressure 118 mm[Hg] 118 mm[Hg] M EDENT ([facility], ) Diastolic blood pressure 80 mm[Hg] 80 mm[Hg] [facility] ([facility]) Body mass index (BMI) [Ratio] 29.2 kg/m2 29.2 k g/m2 [facility], ) Body weight 87.091 kg 87.091 kg [facility] ([facility] Heart rate 67 /min 67 /min [facility] ([facility], ) Oxygen saturation in Arterial blood by Pulse oximetry 98 % 98 % [facility] ([facility], ) Body temperature 99.9 [degF] 99.9 [degF] [facility] ([facility], ) Body height 68 [in_i] 68 [in_i] [facility] ([facility], ) 5'8" Body weight 192.00 [lb_av] 192.00 [lb_av] MEDEN T ([facility]) [place] body weight 154 [lb_av] 154 [lb_av] MEDEN T ([facility]) Body surface area Derived from formula 2.01 m2 2.01 m2 [facility] ([facility]) Body weight 192 [lb_av] 192 [lb_av] eCW1 ([facility]) Body weight 87.09 kg 87.09 kg eCW1 ([facility]) Body height 70.5 [in_i] 70.5 [in_i] eCW1 ([facility]) Body mass index (BMI) [Ratio] 27.16 kg/m2 27.16 kg/m2 eCW1 ([facility]) Heart rate 72 /min 72 /min eCW1 ([facility]) Respiratory rate 18 /min 18 /min eCW1 ([facility]) Body temperature 98.9 [degF] 98.9 [degF] eCW1 ( [facility]) Systolic blood pressure 144 mm[Hg] 144 mm[Hg] e CW1 ([facility]) Diastolic blood pressure 72 mm[Hg] 72 mm[Hg] eCW1 ([facility]) Oxygen saturation in Arterial blood by Pulse oximetry 97 % 97 % [facility] ([facility]) Heart rate 68 /min 68 /min [facility] ([facility]) Body weight 87.545 kg 87.545 kg [facility] ([facility]) Body temperature 99.4 [degF] 99.4 [degF] [facility] ([facility]) Body height 68 [in_i] 68 [in_i] [facility] ([facility]) 5'8" Body weight 193.00 [lb_av] 193.00 [lb_av] MEDEN T ([facility]) Body mass index (BMI) [Ratio] 29.3 kg/m2 29.3 k g/m2 [facility] ([facility]) [place] body weight 154 [lb_av] 154 [lb_av] MEDEN T ([facility]) Body surface area Derived from formula 2.01 m2 2.01 m2 [facility] ([facility]) Diastolic blood pressure 70 mm[Hg] 70 mm[Hg[facility] Systolic blood pressure 128 mm[Hg] 128 mm[Hg] [facility] Oxygen saturation in Arterial blood by Pulse oximetry 98 % 98 % [facility] ([facility]) Heart rate 70 /min 70 /min [facility] ([facility]) Body temperature 100.1 [degF] 100.1 [degF] MEDE NT ([facility]) Systolic blood pressure 130 mm[Hg] 130 mm[Hg] EDENT ([facility]) Diastolic blood pressure 90 mm[Hg] 90 mm[Hg] [facility] ([facility]) Body height 68 [in_i] 68 [in_i] [facility] ([facility]) 5'8" Body weight 188.00 [lb_av] 188.00 [lb_av] MEDEN T ([facility]) Body mass index (BMI) [Ratio] 28.6 kg/m2 28.6 k g/m2 [facility] ([facility]) [place] body weight 154 [lb_av] 154 [lb_av] MEDEN T ([facility]) Body weight 85.277 kg 85.277 kg [facility] ([facility]) Body surface area Derived from formula 1.99 m2 1.99 m2 [facility] ([facility]) Body height 68 [in_i] 68 [in_i] [facility] ([facility]) 5'8" Body weight 85.730 kg 85.730 kg [facility] ([facility]) Body surface area Derived from formula 2.00 m2 2.00 m2 [facility] ([facility]) Body mass index (BMI) [Ratio] 28.7 kg/m2 28.7 k g/m2 [facility] ([facility]) [place] body weight 154 [lb_av] 154 [lb_av] MEDEN T ([facility]) Body weight 189.00 [lb_av] 189.00 [lb_av] MEDEN T ([facility]) Body mass index (BMI) [Ratio] 29.0 kg/m2 29.0 k g/m[facility] Body height 68 [in_i] 68 [in_i] [facility] ([facility]) 5'8" Body weight 191.00 [lb_av] 191.00 [lb_av] MEDEN T ([facility]) [place] body weight 154 [lb_av] 154 [lb_av] MEDEN T ([facility]) Body weight 86.638 kg 86.638 kg [facility] ([facility]) Body surface area Derived from formula 2.00 m2 2.00 m2 [facility] ([facility]) Body weight 86.184 kg 86.184 kg [facility] ([facility]) Body surface area Derived from formula 2.00 m2 2.00 m2 [facility] ([facility]) [place] body weight 154 [lb_av] 154 [lb_av] MEDEN T ([facility]) Body weight 190.00 [lb_av] 190.00 [lb_av] MEDEN T ([facility]) Body mass index (BMI) [Ratio] 28.9 kg/m2 28.9 k g/m2 [facility] ([facility]) Body height 68 [in_i] 68 [in_i] [facility] ([facility]) 5'8" Body weight 86.184 kg 86.184 kg [facility] ([facility]) Body surface area Derived from formula 2.00 m2 2.00 m2 [facility] [place] body weight 154 [lb_av] 154 [lb_av] [facility] T ([facility]) Body mass index (BMI) [Ratio] 28.9 kg/m2 28.9 k g/m2 [facility] ([facility]) Body height 68 [in_i] 68 [in_i] [facility] ([facility]) 5'8" Body weight 190.00 [lb_av] 190.00 [lb_av] [facility] T ([facility]) Body mass index (BMI) [Ratio] 28.9 kg/m2 28.9 k g/m2 [facility] ([facility]) [place] body weight 154 [lb_av] 154 [lb_av] [facility] T ([facility]) Body weight 86.184 kg 86.184 kg [facility] ([facility]) Body surface area Derived from formula 2.00 m2 2.00 m2 [facility] ([facility]) Body height 68 [in_i] 68 [in_i] [facility] ([facility]) 5'8" Body weight 190.00 [lb_av] 190.00 [lb_av] [facility] T ([facility]) Systolic blood pressure 120 mm[Hg] 120 mm[Hg] [facility] [facility] Di[facility] blood pressure 68 mm[Hg] 68 mm[Hg] [facility] Heart rate 67 /min 67 /min [facility] Body height 180.3 cm 180.3 cm [facility] Body weight 85.73 kg 85.73 kg [facility] Body mass index (BMI) [Ratio] 26.36 kg/m2 26.36 kg/m2 [facility] Oxygen saturation in Arterial blood by Pulse oximetry 97 % 97 % [facility] Systolic blood pressure 126 mm[Hg] 126 mm[Hg] M EDENT ([facility]) Diastolic blood pressure 76 mm[Hg] 76 mm[Hg] [facility] ([facility]) [place] body weight 154 [lb_av] 154 [lb_av] MEDEN T ([facility]) Body weight 86.638 kg 86.638 kg [facility] ([facility]) Oxygen saturation in Arterial blood by Pulse oximetry 98 % 98 % [facility] ([facility]) Room Air Body height 68 [in_i] 68 [in_i] [facility] ([facility]) 5'8" Body weight 191.00 [lb_av] 191.00 [lb_av] MEDEN T ([facility]) Body mass index (BMI) [Ratio] 29.0 kg/m2 29.0 k g/m2 [facility] ([facility]) Body surface area Derived from formula 2.00 m2 2.00 m2 [facility] ([facility]) Heart rate 66 /min 66 /min [facility] ([facility]) Oxygen saturation in Arterial blood by Pulse oximetry 98 % 98 % [facility] ([facility]) Room Air Body height 68 [in_i] 68 [in_i] [facility] ([facility]) 5'8" Body weight 191.00 [lb_av] 191.00 [lb_av] MEDEN T ([facility]) Body mass index (BMI) [Ratio] 29.0 kg/m2 29.0 k g/m2 [facility] ([facility]) [place] body weight 154 [lb_av] 154 [lb_av] MEDEN T ([facility]) Body weight 86.638 kg 86.638 kg [facility] ([facility]) Body surface area Derived from formula 2.00 m2 2.00 m2 [facility] ([facility]) Body surface area Derived from formula 1.99 m2 1.99 m2 [facility] ([facility]) Body height 68 [in_i] 68 [in_i] [facility] ([facility]) 5'8" Body weight 188.00 [lb_av] 188.00 [lb_av] MEDEN T ([facility]) Body mass index (BMI) [Ratio] 28.6 kg/m2 28.6 k g/m2 [facility] ([facility]) [place] body weight 154 [lb_av] 154 [lb_av] MEDEN T ([facility]) Body weight 85.277 kg 85.277 kg [facility] ([facility]) Diastolic blood pressure 70 mm[Hg] 70 mm[Hg] [facility] ([facility]) Heart rate 69 /min 69 /min [facility] ([facility]) Systolic blood pressure 120 mm[Hg] 120 mm[Hg] [facility] Oxygen saturation in Arterial blood by Pulse oximetry 97 % 97 % [facility] ([facility]) Room Air Body height 68 [in_i] 68 [in_i] [facility] ([facility]) 5'8" Body weight 188.00 [lb_av] 188.00 [lb_av] MEDEN T ([facility]) Body mass index (BMI) [Ratio] 28.6 kg/m2 28.6 k g/m2 [facility] ([facility]) [place] body weight 154 [lb_av] 154 [lb_av] MEDEN T ([facility]) Body weight 85.277 kg 85.277 kg [facility] ([facility]) Body surface area Derived from formula 1.99 m2 1.99 m2 [facility] ([facility]) Body mass index (BMI) [Ratio] 28.3 kg/m2 28.3 k g/m2 [facility] ([facility]) Body height 68 [in_i] 68 [in_i] [facility] ([facility]) 5'8" Body weight 186.00 [lb_av] 186.00 [lb_av] MEDEN T ([facility]) [place] body weight 154 [lb_av] 154 [lb_av] MEDEN T ([facility]) Body weight 84.370 kg 84.370 kg [facility] ([facility]) Body surface area Derived from formula 1.98 m2 1.98 m2 [facility] ([facility]) Body height 68 [in_i] 68 [in_i] [facility] ([facility]) 5'8" Body weight 186.00 [lb_av] 186.00 [lb_av] MEDEN T ([facility]) Body mass index (BMI) [Ratio] 28.3 kg/m2 28.3 k g/m2 [facility] ([facility]) [place] body weight 154 [lb_av] 154 [lb_av] MEDEN T ([facility]) Body weight 84.370 kg 84.370 kg [facility] ([facility]) Body surface area Derived from formula 1.98 m2 1.98 m2 [facility] ([facility]) Body weight 189.4 [lb_av] 189.4 [lb_av] eCW1 ([facility]) Body height 70.5 [in_i] 70.5 [in_i] eCW1 ([facility]) Body mass index (BMI) [Ratio] 26.79 kg/m2 26.79 kg/m2 eCW1 ([facility]) Heart rate 83 /min 83 /min eCW1 ([facility]) Respiratory rate 20 /min 20 /min eCW1 ([facility]) Body temperature 99.5 [degF] 99.5 [degF] eCW1 ( [facility]) Systolic blood pressure 138 mm[Hg] 138 mm[Hg] e CW1 ([facility]) Diastolic blood pressure 72 mm[Hg] 72 mm[Hg] eCW1 ([facility]) Body height 68 [in_i] 68 [in_i] [facility] ([facility]) 5'8" Body weight 186.00 [lb_av] 186.00 [lb_av] MEDEN T ([facility]) Body mass index (BMI) [Ratio] 28.3 kg/m2 28.3 k g/m2 [facility] ([facility]) [place] body weight 154 [lb_av] 154 [lb_av] MEDEN T ([facility]) Body weight 84.370 kg 84.370 kg [facility] ([facility]) Body surface area Derived from formula 1.98 m2 1.98 m2 [facility] ([facility]) Body height 68 [in_i] 68 [in_i] [facility] 5'8" Body weight 186.00 [lb_av] 186.00 [lb_av] MEDEN T ([facility]) Body mass index (BMI) [Ratio] 28.3 kg/m2 28.3 [facility] [place] body weight 154 [lb_av] 154 [lb_av] MEDEN T ([facility]) Body weight 84.370 kg 84.370 kg [facility] Body surface area Derived from formula 1.98 m2 1.98 m2 [facility] ([facility]) Body height 68 [in_i] 68 [in_i] MEDENT ([facility]) 5'8" Body weight 186.00 [lb_av] 186.00 [lb_av] MEDEN T ([facility]) Body mass index (BMI) [Ratio] 28.3 kg/m2 28.3 k g/m2 [facility] ([facility]) [place] body weight 154 [lb_av] 154 [lb_av] MEDEN T ([facility]) Body weight 84.370 kg 84.370 kg [facility] ([facility]) Body surface area Derived from formula 1.98 m2 1.98 m2 [facility] ([facility]) Body height 68 [in_i] 68 [in_i] [facility] 5'8" Body weight 186.00 [lb_av] 186.00 [lb_av] MEDEN T ([facility]) Body mass index (BMI) [Ratio] 28.3 kg/m2 28.3 k g/m2 [facility] ([facility]) [place] body weight 154 [lb_av] 154 [lb_av] MEDEN T ([facility]) Body weight 84.370 kg 84.370 kg [facility] ([facility]) Body surface area Derived from formula 1.98 m2 1.98 m2 [facility] ([facility]) Systolic blood pressure 144 mm[Hg] 144 mm[Hg] EDENT ([facility], [facility]) Diastolic blood pressure 79 mm[Hg] 79 mm[Hg] MEDENT ([facility], [facility]) Heart rate 65 /min 65 /min MEDENT ([facility], [facility]) Respiratory rate 16 /min 16 /min MEDENT ( [facility], [facility]) Oxygen saturation in Arterial blood by Pulse oximetry 96 % 96 % MEDENT ([facility], [facility]) Body temperature 98.7 [degF] 98.7 [degF] MEDENT ([facility], [facility]) Body weight 182.00 [lb_av] 182.00 [lb_av] MEDEN T ([facility], [facility]) Body weight 192.6 [lb_av] 192.6 [lb_av] eCW1 ([facility]) Body height 70.5 [in_i] 70.5 [in_i] W1 ([facility]) Body mass index (BMI) [Ratio] 27.24 kg/m2 27.24 kg/m2 W1 ([facility]) Heart rate 74 /min 74 /min eCW1 ([facility]) Respiratory rate 18 /min 18 /min eCW1 ([facility]) Body temperature 98.7 [degF] 98.7 [degF] eCW1 ( [facility]) Systolic blood pressure 140 mm[Hg] 140 mm[Hg] e CW1 ([facility]) Diastolic blood pressure 66 mm[Hg] 66 mm[Hg] eCW1 ([facility]) Body mass index (BMI) [Ratio] 29.2 kg/m2 29.2 k g/m2 MEDENT ([facility], ) Oxygen saturation in Arterial blood by Pulse oximetry 99 % 99 % [facility], ) Body temperature 98.5 [degF] 98.5 [degF] [facility], ) Body height 68 [in_i] 68 [in_i] [facility], ) 5'8" Body weight 192.00 [lb_av] 192.00 [lb_av] MEDEN T ([facility], ) Body surface area Derived from formula 2.01 m2 2.01 m2 [facility] [place] body weight 154 [lb_av] 154 [lb_av] MEDEN T ([facility], ) Body weight 87.091 kg 87.091 kg MEDENT ([facility]) Systolic blood pressure 130 mm[Hg] 130 mm[Hg] M EDENT ([facility]) Diastolic blood pressure 72 mm[Hg] 72 mm[Hg] MEDENT ([facility]) Heart rate 70 /min 70 /min MEDENT ([facility], ) Body weight 192 [lb_av] 192 [lb_av] eCW1 ([facility]) Body height 70.5 [in_i] 70.5 [in_i] eCW1 ([facility]) Body mass index (BMI) [Ratio] 27.16 kg/m2 27.16 kg/m2 [facility] ([facility]) Heart rate 79 /min 79 /min eCW1 ([facility]) Respiratory rate 18 /min 18 /min eCW1 ([facility]) Body temperature 99.6 [degF] 99.6 [degF] eCW1 ( [facility]) Systolic blood pressure 132 mm[Hg] 132 mm[Hg] e CW1 ([facility]) Diastolic blood pressure 74 mm[Hg] 74 mm[Hg] eCW1 ([facility]) Systolic blood pressure 148 mm[Hg] 148 mm[Hg] [facility] Diastolic blood pressure 82 mm[Hg] 82 mm[Hg] [facility] Heart rate 70 /min 70 /min [facility] Body height 180.3 cm 180.3 cm [facility] Body weight 86.183 kg 86.183 kg [facility] Body mass index (BMI) [Ratio] 26.50 kg/m2 26.50 kg/m2 [facility] Oxygen saturation in Arterial blood by Pulse oximetry 98 % 98 % [facility] Body weight 186 [lb_av] 186 [lb_av] eCW1 ([facility]) Body height 70.5 [in_i] 70.5 [in_i] eCW1 ([facility]) Body mass index (BMI) [Ratio] 26.31 kg/m2 26.31 kg/m2 eCW1 ([facility]) Heart rate 88 /min 88 /min eCW1 ([facility]) Respiratory rate 18 /min 18 /min eCW1 ([facility]) Body temperature 99.2 [degF] 99.2 [degF] eCW1 ( [facility]) Systolic blood pressure 128 mm[Hg] 128 mm[Hg] e CW1 ([facility]) Diastolic blood pressure 70 mm[Hg] 70 mm[Hg] eCW1 ([facility]) Systolic blood pressure 118 mm[Hg] 118 mm[Hg] M EDENT ([facility], ) Diastolic blood pressure 78 mm[Hg] 78 mm[Hg] [facility]) Heart rate 66 /min 66 /min [facility] ([facility]) Oxygen saturation in Arterial blood by Pulse oximetry 98 % 98 % [facility] ([facility]) Room Air Body height 68 [in_i] 68 [in_i] [facility] ([facility]) 5'8" Body weight 190.00 [lb_av] 190.00 [lb_av] MEDEN T ([facility]) Body mass index (BMI) [Ratio] 28.9 kg/m2 28.9 k g/m2 [facility] ([facility]) [place] body weight 154 [lb_av] 154 [lb_av] MEDEN T ([facility]) Body weight 86.184 kg 86.184 kg [facility] ([facility]) Body surface area Derived from formula 2.00 m2 2.00 m2 [facility] ([facility]) Patient Treatment Plan of Care Planned Activity Planned Date Details Description Data Source (s) voriconazole 200 MG Oral Tablet 12/02/2020 12:00:00 AM EDT eCW1 ([facility]) voriconazole 200 MG Oral Tablet 12/02/2020 12:00:00 AM EDT eCW1 ([facility]) voriconazole 200 MG Oral Tablet 12/02/2020 12:00:00 AM EDT eCW1 ([facility]) Hydrochlorothiazide 12.5 MG Oral Tablet 09/12/2020 12:00:00 AM EDT [facility] Simvastatin 40 MG Oral Tablet 09/04/2020 12:00:00 AM EDT [facility] Lisinopril 40 MG Oral Tablet 06/18/2020 12:00:00 AM EDT [facility] Aspir-Low 81 MG 03/11/2020 12:00:00 AM EST eCW1 ([facility]) Aspir-Low 81 MG 03/11/2020 12:00:00 AM EST eCW1 ([facility]) Aspir-Low 81 MG 03/11/2020 12:00:00 AM EST eCW1 ([facility]) Aspir-Low 81 MG 03/11/2020 12:00:00 AM EST eCW1 ([facility]) Doxycycline Monohydrate 100 MG Oral Capsule 02/18/2020 12:00:00 AM EST eCW1 ([facility]) Doxycycline Monohydrate 100 MG Oral Capsule 02/18/2020 12:00:00 AM EST eCW1 ([facility]) Doxycycline Monohydrate 100 MG Oral Capsule 02/18/2020 12:00:00 AM EST eCW1 ([facility]) Doxycycline Monohydrate 100 MG Oral Capsule 02/18/2020 12:00:00 AM EST eCW1 ([facility]) Doxycycline Monohydrate 100 MG Oral Capsule 02/18/2020 12:00:00 AM EST eCW1 ([facility]) Doxycycline Monohydrate 100 MG Oral Capsule 02/18/2020 12:00:00 AM EST eCW1 ([facility]) Doxycycline Monohydrate 100 MG Oral Capsule 02/18/2020 12:00:00 AM EST eCW1 ([facility]) Doxycycline Monohydrate 100 MG Oral Capsule 02/18/2020 12:00:00 AM EST eCW1 ([facility]) Doxycycline Monohydrate 100 MG Oral Capsule 02/18/2020 12:00:00 AM EST eCW1 ([facility]) Doxycycline Monohydrate 100 MG Oral Capsule 02/18/2020 12:00:00 AM EST eCW1 ([facility]) Doxycycline Monohydrate 100 MG Oral Capsule 02/18/2020 12:00:00 AM EST eCW1 ([facility]) Sulfamethoxazole 800 MG / Trimethoprim 160 MG Oral Tab let [Bactrim] 02/12/2020 12:00:00 AM EST eCW1 ([facility]) Trazodone Hydrochloride 50 MG Oral Tablet 01/28/2020 12:00:00 AM ES T eCW1 ([facility]) Trazodone Hydrochloride 50 MG Oral Tablet 01/28/2020 12:00:00 AM ES T eCW1 ([facility]) Trazodone Hydrochloride 50 MG Oral Tablet 01/28/2020 12:00:00 AM ES T eCW1 ([facility]) Trazodone Hydrochloride 50 MG Oral Tablet 01/28/2020 12:00:00 AM ES T eCW1 ([facility]) Trazodone Hydrochloride 50 MG Oral Tablet 01/28/2020 12:00:00 AM ES T eCW1 ([facility]) Trazodone Hydrochloride 50 MG Oral Tablet 01/28/2020 12:00:00 AM ES T eCW1 ([facility]) Trazodone Hydrochloride 50 MG Oral Tablet 01/28/2020 12:00:00 AM ES T eCW1 ([facility]) Simvastatin 40 MG Oral Tablet 01/09/2020 12:00:00 AM EDT [facility] Levofloxacin 500 MG Oral Tablet 01/01/2020 12:00:00 AM EDT eCW1 ([facility]) Levofloxacin 500 MG Oral Tablet 01/01/2020 12:00:00 AM EDT eCW1 ([facility]) Levofloxacin 500 MG Oral Tablet 01/01/2020 12:00:00 AM EDT eCW1 ([facility]) Levofloxacin 500 MG Oral Tablet 01/01/2020 12:00:00 AM EDT eCW1 ([facility]) Lisinopril 40 MG Oral Tablet 08/20/2019 12:00:00 AM EDT [facility] Hydrochlorothiazide 12.5 MG Oral Tablet 08/07/2019 12:00:00 AM EDT [facility]
--- NOTE | 2021-01-23 12:47 | REP ---
INDICATION: abdominal pain. COMPARISON: 09/29/2018 TECHNIQUE: Scanning through the abdomen and pelvis after bolus of 100 mL Isovue 370. Coronal and sagittal reconstructions provided. FINDINGS: CT abdomen: Lung bases are clear. There is sternotomy wires and mitral valve surgical changes evident. Left atrial enlargement. Heart size not grossly enlarged no pericardial thickening or effusion and no hiatal hernia. Liver shows a subtle hyperdensity posteriorly in the right hepatic lobe, unchanged from 2-1/2 years ago. No biliary dilatation or ascites. Gallbladder without calcified stone or mass. Spleen was normal. Adrenal glands normal. Pancreas is unremarkable. There are stable cysts in the left kidney, none on the right. No hydronephrosis, solid mass, stone or hydroureter. The aorta shows atherosclerotic calcification without aneurysm. No periaortic, other retroperitoneal or mesenteric pathologic sized adenopathy. Small bowel loops are fluid-filled but without abnormal dilatation or wall thickening. Visualized colon in the abdomen proper showed a few scattered diverticula but otherwise unremarkable. Bone windows show spine and posterior elements without acute finding. Visualized ribs were intact. CT pelvis: Sacrum, SI joints, pelvis and hips show no change or acute finding there are a few pelvic bone islands evident mid to distal sigmoid is show some inflammatory changes in the Karla colonic fat and diverticulosis. This represents acute sigmoid diverticulitis. There is distal left colonic and proximal sigmoid diverticulosis without acute changes there rectum unremarkable. No pelvic free fluid, perforation or abscess. No ventral or inguinal hernia nor pathologic sized inguinal adenopathy. Bladder with the small amount of urine but no stone, mass or layered debris. Wall thickness difficult to evaluate because of underfilling. IMPRESSION: 1. Mid to distal sigmoid diverticulitis with inflammatory changes in the fat but no perforation or abscess. No visible mass or adenopathy. Distal left colonic and proximal sigmoid diverticulosis without inflammatory changes in those areas. 2. No other significant finding. <Electronically signed by Titi Guevara > 01/23/21 [id number]
[2021-01-23 12:51] LABS: LYMPHOCYTES 9 % (16-44); MONOCYTES 10 % (0-5); NEUTROPHILS 72 % (28-66); PLATELET ESTIMATE NORMAL (NORMAL)
[2021-01-23 12:52] LABS: ALBUMIN 3.1 GM/DL (3.2-5.2); ALT/SGPT 106 U/L (12-78); BILIRUBIN,DIRECT 0.2 MG/DL (0.0-0.2); BILIRUBIN,TOTAL 0.3 MG/DL (0.2-1.0); CK-MB VALUE MASS < 1.0 NG/ML (<3.6); CPK CREATINE PHOSPHOKINASE 39 U/L (39-308); LIPASE 265 U/L (73-393); MB/CK RELATIVE INDEX 2.56 (< OR =4); TOTAL PROTEIN 6.8 GM/DL (6.4-8.2); TROPONIN I 0.02 NG/ML (< 0.10)
[2021-01-23] MEDS ORDERED: metroNIDAZOLE 500 MG in IV 1 EA IV ONE (13:55)
[2021-01-23] MEDS ORDERED: CIPROFLOXACIN 400 MG in IV 1 EA IV ONE (13:55)
[2021-01-23] MEDS ORDERED: MOXI1TAB PO (15:55)
[2021-01-23 16:30] VITALS: BP 150/83
--- NOTE | 2021-01-24 07:02 | ECGEPIP ---
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
== END 2021-01-23 16:53 | disposition home or self-care (01) ==
LOC: M ED 10:55
DX: K57.92 Diverticulitis of intestine, part unspecified, without perforation or abscess without bleeding (principal); G47.33 Obstructive sleep apnea (adult) (pediatric); Z92.21 Personal history of antineoplastic chemotherapy; Z92.3 Personal history of irradiation; Z79.899 Other long term (current) drug therapy; Z79.82 Long term (current) use of aspirin; Z88.1 Allergy status to other antibiotic agents; Z88.8 Allergy status to other drugs, medicaments and biological substances; Z91.040 Latex allergy status; Z87.891 Personal history of nicotine dependence
CPT/HCPCS: 74177; 80047; 80076; 81001; 82550; 82553; 83690; 84484; 85025; 87040; 93005; 93041; 96365; 96366; 96375; 99285; J0744; Q9967

== ENCOUNTER → 2021-01-29 | Outpatient (CLI) | payer MEDICARE, OTHER ==
[~2021-01-29] MED LIST changes: +HYDR-4467; +MOXI1TAB PO; +ONDA8TAB10; +SODI1TAB6
[2021-01-29 10:43] LABS: BASO # 0.1 10^3/uL (0.0-0.2); BASO % 0.7 % (0.0-1.0); EOS % 0.2 % (0.0-3.0); HEMATOCRIT 32.5 % (42.0-52.0); HEMOGLOBIN 10.3 g/dl (13.5-17.5); LYMPH # 1.8 10^3/uL (1.5-5.0); LYMPH % 14.8 % (24.0-44.0); MEAN CORPUSCULAR HEMOGLOBIN 30.9 pg (27.0-33.0); MEAN CORPUSCULAR HGB CONC 31.7 g/dl (32.0-36.5); MEAN CORPUSCULAR VOLUME 97.6 fl (80.0-96.0); MONO # 1.4 10^3/uL (0.0-0.8); NEUTROPHILS # 8.6 10^3/uL (1.5-8.5); NEUTROPHILS % 70.6 % (36.0-66.0); PLATELET COUNT, AUTOMATED 481 10^3/uL (150-450); RED BLOOD COUNT 3.33 10^6/uL (4.30-6.10); WHITE BLOOD COUNT 12.2 10^3/uL (4.0-10.0)
[2021-01-29 10:55] LABS: INR 1.03; PROTHROMBIN TIME 13.9 SECONDS (12.7-14.5)
[2021-01-29 11:08] LABS: ALBUMIN 2.9 GM/DL (3.2-5.2); ALT/SGPT 39 U/L (12-78); BILIRUBIN,TOTAL 0.2 MG/DL (0.2-1.0); BLOOD UREA NITROGEN 6 MG/DL (7-18); CALCIUM LEVEL 8.6 MG/DL (8.8-10.2); CARBON DIOXIDE LEVEL 32 MEQ/L (21-32); CHLORIDE LEVEL 97 MEQ/L (98-107); CREATININE FOR GFR 0.62 MG/DL (0.70-1.30); GLOMERULAR FILTRATION RATE > 60.0 (>49); GLUCOSE, FASTING 94 MG/DL (70-100); LIPASE 276 U/L (73-393); POTASSIUM SERUM 3.4 MEQ/L (3.5-5.1); SODIUM LEVEL 135 MEQ/L (136-145); TOTAL PROTEIN 6.5 GM/DL (6.4-8.2)
== END ==
LOC: M WUC 09:26
PROVIDERS: ATTEND Internal Medicine Hematology & Oncology
DX: Z51.11 Encounter for antineoplastic chemotherapy (principal); C86.0 Extranodal NK/T-cell lymphoma, nasal type

== ENCOUNTER 2021-02-01 13:04 | Inpatient (IN) | payer MEDICARE, OTHER ==
[~2021-02-01] VITALS: Ht 177.8 cm; Wt 84.1 kg
[~2021-02-01 13:04] MED LIST changes: -HYDR-4467; +HYDR-4467 PO; -ONDA8TAB10; +ONDA8TAB10 PO
--- OUTSIDE RECORDS SUMMARY | 2021-02-01 13:11 | CCD ---
Author Author [facility] Organization [facility] Address Unknown Phone Unavailable Care Team Providers Care Pug Machine Operator Name Role Phone Nohemy Kapoor Unavailable PROBLEMS Type Condition ICD9-CM Code [id number] Code Onset Dates Condition S tatus W/U Status Risk SNOMED Code Notes Problem Mixed hyperlipidemia E78.2 Active confirmed 320368418 Problem Overweight (BMI 25.0-29.9) E66.3 Active confirmed 690820983 Problem JACEK (generalized anxiety disorder) F41.1 Activ e confirmed 93689802 Problem Renal cyst N28.1 Active confirmed 029928666 Problem Allergic rhinitis, unspecified seasonality, unspecifie d trigger J30.9 Active confirmed 13400377 Problem Gastroesophageal reflux disease, esophagitis pre sence not specified K21.9 Active confirmed 961938481 Problem Basal cell carcinoma of nose C44.311 Active confirm ed 658097319 Problem Coronary artery disease invo lving coronary bypass graft of [place] heart without angina pectoris I25.810 Active confirmed 959472 002 Problem IFG (impaired fasting glucose) R73.01 Active confir med 893870881 Problem Recurrent bronchiectasis J47.9 Active confirmed 267751291 Problem Lymphoma of lymph nodes of head, 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 Active confirmed 28686701 Problem Chronic maxillary sinusitis J32.0 Active confirmed 32234489 Problem Chronic sinusitis, unspecified J32.9 Active c onfirmed [id number] Problem Prostate cancer screening Z12.5 Active confirmed 822483758 Problem Encounter for immunization Z23 Active confirmed 056878168 Problem Colon cancer screening Z12.11 Active confirmed 624978164 Problem Essential hypertension I10 Active confirmed 78971660 Problem Aspergillosis B44.9 Active confirmed 492686 06 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 1099 94424 Problem Coronary artery disease invo lving [place] coronary artery of [place] heart without angina pectoris I25.10 Active confirmed 326034 000 Problem Obstructive sleep apnea G47.33 Active confirmed 32536197 ALLERGIES Allergen (clinical drug ingredient) Drug/Non Drug Allergy do cumented on EMR Reaction Allergy Type Onset Date Status zolpidem Ambien([facility] Code:[address]-73) Violent Drug Allergy Active Latex Latex Rash Drug Allergy Active clarithromycin Biaxin Dizzy Drug Allergy Active ENCOUNTERS from 1950 to 2021-01-29 Encounter Location Date Provider Diagnosis [id number] [facility] [phone] [place] [address] Jan, Nohemy Kapoor Coronary artery disease invo lving [place] coronary artery of [place] heart without angina pectoris I25.10 IMMUNIZATIONS Vaccine Route Administration Date Status Influenza [...] Education Language: Question Answer Notes Languages spoken: Slovak Drug and Alcohol Question Answer Notes Total [...] Notes Start Da te End Date Status Simvastatin 20 MG 1 tablet in the evening Orally Daily Active PARoxetine HCl 30 MG 1 tablet in the morning Orally Daily for 90 Active Doxazosin Mesylate 4 MG 1 tablet orally Daily for 90 days Active traZODone HCl 50 MG 1 tablet at bedtime as needed Orally Once a day Jan, Active Lisinopril 40 MG 1 tablet Orally Daily Active Voriconazole 200 MG 1 tab Orally tid for 2 days then BID for 30 Days Active Metoprolol Tartrate 100 MG 1 tab Orally bid for 90 days Active Aspirin 81 MG TAKE ONE TABLET BY MOUTH DAILY Active Amlodipine Besylate 10 MG 1 tablet Orally Daily for 90 Active Omeprazole 40 MG 1 capsule orally Daily for 90 Active PROCEDURES No Information RESULTS No Results REASON FOR VISIT refill MEDICAL (GENERAL) HISTORY Type Description Date Medical [...] Medical History 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 Surgical History s/p CABG 03/12/2013 Surgical History [...] Notes Treatment Notes Treatm ent Clinical Notes Jan, Coronary artery disease invo lving [place] coronary artery of [place] heart without angina pectoris (ICD-10 - I25.10) PLAN OF TREATMENT Medication Medication Name Sig Start Date Stop Date Metoprolol Tartrate 100 MG 1 tab Orally bid for 90 days Simvastatin 20 MG 1 tablet in the evening Orally Daily Voriconazole 200 MG 1 tab Orally tid for 2 days then BID for 30 Days Lisinopril 40 MG 1 tablet Orally Daily Doxazosin Mesylate 4 MG 1 tablet orally Daily for 90 days Next Appt Details Provider Name:Elly Ayoub, 2021-11-2 9 01:00:00 PM, [address] [place] [address], , [place], [place], [facility], Insurance Providers Payer Name Payer Address Payer Phone Insured Name Patient Relati onship to Insured Coverage Start Date Coverage End Date MEDICARE Part A and B [address] [facility] [id number] JIM BIANCHI self [facility] [address] [address] [facility] [phone] JIM BIANCHI self
--- OUTSIDE RECORDS SUMMARY | 2021-02-01 13:11 | CCD ---
Author Author [facility] Organization [facility] Address Unknown Phone Unavailable Care Team Providers Care Graphic Arts Instructor Name Role Phone Elly Ayoub Unavailable PROBLEMS Type Condition ICD9-CM Code [id number] Code Onset Dates Condition S tatus W/U Status Risk SNOMED Code Notes Problem Mixed hyperlipidemia E78.2 Active confirmed 790537814 Problem Overweight (BMI 25.0-29.9) E66.3 Active confirmed 735166499 Problem JACEK (generalized anxiety disorder) F41.1 Activ e confirmed 60807150 Problem Renal cyst N28.1 Active confirmed 886840378 Problem Allergic rhinitis, unspecified seasonality, unspecifie d trigger J30.9 Active confirmed 44268511 Problem Gastroesophageal reflux disease, esophagitis pre sence not specified K21.9 Active confirmed 944495211 Problem Basal cell carcinoma of nose C44.311 Active confirm ed 385043417 Problem Coronary artery disease invo lving coronary bypass graft of [place] heart without angina pectoris I25.810 Active confirmed 661774 002 Problem IFG (impaired fasting glucose) R73.01 Active confir med 582538127 Problem Recurrent bronchiectasis J47.9 Active confirmed 236604637 Problem Lymphoma of lymph nodes of head, 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 Active confirmed 14542871 Problem Chronic maxillary sinusitis J32.0 Active confirmed 00024161 Problem Chronic sinusitis, unspecified J32.9 Active c onfirmed 42247140299746 Problem Prostate cancer screening Z12.5 Active confirmed 348324907 Problem Encounter for immunization Z23 Active confirmed 114930665 Problem Colon cancer screening Z12.11 Active confirmed 654724684 Problem Essential hypertension I10 Active confirmed 09411218 Problem Aspergillosis B44.9 Active confirmed 008464 06 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 Code:[address]-90) Violent Drug Allergy Active Latex Latex Rash Drug Allergy Active clarithromycin Biaxin Dizzy Drug Allergy Active ENCOUNTERS from 1950 to 2021-01-27 Encounter Location Date Provider Diagnosis [facility] [place] [address] [facility] [phone] [place] [address] 11 Jan, 2021 Elly Ayoub Coronary artery dise ase involving [place] coronary artery of [place] heart without angina pectoris I25.10 IMMUNIZATIONS Vaccine [...] Education Language: Question Answer Notes Languages spoken: Indian Drug and Alcohol Question Answer Notes Total [...] Notes Start Da te End Date Status Doxazosin Mesylate 4 MG 1 tablet orally Daily for 90 days Active Voriconazole 200 MG 1 tab Orally tid for 2 days then BID for 30 Days Active PARoxetine HCl 30 MG 1 tablet in the morning Orally Daily for 90 Active Lisinopril 40 MG 1 tablet Orally Daily Active Amlodipine Besylate 10 MG 1 tablet Orally Daily for 90 Active Omeprazole 40 MG 1 capsule orally Daily for 90 Active Aspirin 81 MG TAKE ONE TABLET BY MOUTH DAILY Active Metoprolol Tartrate 100 MG 1 tab Orally bid for 90 days Active Simvastatin 20 MG 1 tablet in the evening Orally Daily Active traZODone HCl 50 MG 1 tablet at bedtime as needed Orally Once a day Jan, Active PROCEDURES No Information RESULTS No Results REASON FOR VISIT Metoprolol Tartrate 100 MG Tablet MEDICAL (GENERAL) HISTORY Type Description Date Medical History CAD-s/p CABG/ MVR 03/11/13 S JH-04/26/18 ETT-low risk , excellent tolerance to 10 METs Medical History CHF, chronic-mild LVH, grade 1 oziel dysfx, LVEF 60%, mild MS, trace MR-04/2019 TTE-[facility] Medical History BALAJI, mild-02/22/20 dNPSG AHI -Zhang Medical History hypertension, essential Medical History BALAJI on chronic CPAP Medical History ho nicotine use-FEV13.0 L (9 4)/FVC 89/ratio 94%-02/26/19 spirometery-Zhang Medical History ho recurrent bronchiectasis Medical History PVD Medical History JACEK Medical History IFG Medical History 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 Surgical History s/p CABG 03/12/2013 Surgical History [...] Notes Jan, Coronary artery disease invo lving [place] coronary artery of [place] heart without angina pectoris (ICD-10 - I25.10) PLAN OF TREATMENT Medication Medication Name Sig Start Date Stop Date Doxazosin Mesylate 4 MG 1 tablet orally Daily for 90 days Metoprolol Tartrate 100 MG 1 tab Orally bid for 90 days Lisinopril 40 MG 1 tablet Orally Daily Simvastatin 20 MG 1 tablet in the evening Orally Daily Voriconazole 200 MG 1 tab Orally tid for 2 days then BID for 30 Days Next Appt Details Provider Name:Elly Ayoub, 2021-11-2 9 01:00:00 PM, [address] [place] [address], , [place], [place], [facility], Insurance Providers Payer Name Payer Address Payer Phone Insured Name Patient Relati onship to Insured Coverage Start Date Coverage End Date [facility] [address] [address] [facility] [phone] JIM BIANCHI self MEDICARE Part A and B [address] [id number] [phone] JIM BIANCHI self
--- OUTSIDE RECORDS SUMMARY | 2021-02-01 13:13 | CCD ---
Author Author [facility] Organization [facility] Address Unknown Phone Unavailable Care Team Providers Care Activities Therapist Name Role Phone Daniel La MD Unavailable Unavailable Daniel La MD Unavailable Unavailable Daniel La MD Unavailable Unavailable Daniel La MD Unavailable Unavailable Daniel La MD Unavailable Unavailable Daniel La MD Unavailable Unavailable Abriss B Alec GAY Unavailable Unavailable Abrelio B Alec GAY Unavailable Unavailable Abriss B Alec GAY Unavailable Unavailable Abriss B Alec GAY Unavailable Unavailable Abrelio B Alec GAY Unavailable Unavailable Abrelio B Alec GAY Unavailable Unavailable Abreloi B Alec GAY Unavailable Unavailable Harsha B Alec GAY Unavailable Unavailable Harsha B Alec GAY Unavailable Unavailable Harsha B Alec GAY Unavailable Unavailable Harsha B Alec GAY Unavailable Unavailable Harsha B Alec GAY Unavailable Unavailable Harsha B Alec GAY Unavailable Unavailable Harsah B Alec GAY Unavailable Unavailable Abrelio B Alec GAY Unavailable Unavailable Harsha B Alec GAY Unavailable Unavailable Harsha B Alec GAY Unavailable Unavailable Harsha B Alec GAY Unavailable Unavailable Junaid Mcleod MD Unavailable Unavailable LETTIERE, A ROMA PA Unavailable [...] Unavailable Unavailable Paramjit Blair MD Unavailable Unavailable MadhiraParamjit MD Unavailable Unavailable MadhiraParamjit MD Unavailable Unavailable MadhiParamjit cummings MD Unavailable Unavailable Madhira, Paramjit Rader MD Unavailable Unavailable JasonhiParamjit cummings MD Unavailable Unavailable Madhira, Paramjit Rader MD Unavailable Unavailable MadhiParamjit cummings MD Unavailable Unavailable MadhiParamjit cummings MD Unavailable Unavailable MadhiraParamjit MD Unavailable Unavailable Fons, M Osiris WINE BLENDER Unavailable Unavailable Fons, M Osiris WINE BLENDER Unavailable Unavailable Fons, M Osiris WINE BLENDER Unavailable Unavailable Fons, M Osiris WINE BLENDER Unavailable Unavailable Fons, M Osiris WINE BLENDER Unavailable Unavailable Fons, M Osiris WINE BLENDER Unavailable Unavailable Fons, M Osiris WINE BLENDER Unavailable Unavailable Fons, M Osiris WINE BLENDER Unavailable Unavailable Fons, M Osiris WINE BLENDER Unavailable Unavailable Fons, M Osiris WINE BLENDER Unavailable Unavailable Fons, M Osiris WINE BLENDER Unavailable Unavailable Fons, M Osiris WINE BLENDER Unavailable Unavailable Fons, M Osiris WINE BLENDER Unavailable Unavailable Fons, M Osiris WINE BLENDER Unavailable Unavailable Fons, M Osiris WINE BLENDER Unavailable Unavailable Fons, M Osiris WINE BLENDER Unavailable Unavailable Fons, M Osiris WINE BLENDER Unavailable Unavailable Fons, M Osiris WINE BLENDER Unavailable Unavailable Fons, M Osiris WINE BLENDER Unavailable Unavailable Fons, M Osiris WINE BLENDER Unavailable Unavailable Fons, M Osiris WINE BLENDER Unavailable Unavailable Fons, M Osiris WINE BLENDER Unavailable Unavailable Fons, M Osiris WINE BLENDER Unavailable Unavailable Fons, M Osiris WINE BLENDER Unavailable Unavailable Fons, M Osiris WINE BLENDER Unavailable Unavailable Fons, M Osiris WINE BLENDER Unavailable Unavailable Fons, M Osiris WINE BLENDER Unavailable Unavailable Fons, M Osiris WINE BLENDER Unavailable Unavailable Fons, M Osiris WINE BLENDER Unavailable Unavailable Fons, M Osiris WINE BLENDER Unavailable Unavailable Fons, M Osiris WINE BLENDER Unavailable Unavailable Fons, M Osiris WINE BLENDER Unavailable Unavailable Fons, M Osiris WINE BLENDER Unavailable Unavailable Fons, M Osiris WINE BLENDER Unavailable Unavailable Fons, M Osiris WINE BLENDER Unavailable Unavailable Fons, M Osiris WINE BLENDER Unavailable Unavailable Fons, M Osiris WINE BLENDER Unavailable Unavailable Fons, M Osiris WINE BLENDER Unavailable Unavailable Fons, M Osiris WINE BLENDER Unavailable Unavailable Fons, M Osiris WINE BLENDER Unavailable Unavailable Fons, M Osiris WINE BLENDER Unavailable Unavailable Fons, M Osiris WINE BLENDER Unavailable Unavailable Fons, M Osiris WINE BLENDER Unavailable Unavailable Fons, M Osiris WINE BLENDER Unavailable Unavailable Fons, M Osiris WINE BLENDER Unavailable Unavailable Fons, M Osiris WINE BLENDER Unavailable Unavailable Fons, M Osiris WINE BLENDER Unavailable Unavailable Fons, M Osiris WINE BLENDER Unavailable Unavailable Fons, M Osiris WINE BLENDER Unavailable Unavailable Fons, M Osiris WINE BLENDER Unavailable Unavailable Fons, M Osiris WINE BLENDER Unavailable Unavailable Fons, M Osiris WINE BLENDER Unavailable Unavailable Fons, M Osiris WINE BLENDER Unavailable Unavailable Vinnie Zhang MD Unavailable Unavailable Vinnie Zhang MD Unavailable Unavailable Vinnie Zhang MD Unavailable Unavailable Vinnie Zhang MD Unavailable Unavailable Vinnie Zhang MD Unavailable Unavailable Vinnie Zhang MD Unavailable Unavailable Vinnie Zhang MD Unavailable Unavailable Vinnie Zhang MD Unavailable Unavailable Vinnie Zhang MD Unavailable Unavailable Vninie Zhang MD Unavailable Unavailable Vinnie Zhang MD [...] Unavailable Bharat, Addis MD Unavailable Unavailable Bharat, Addsi MD Unavailable Unavailable Bharat, Addis MD Unavailable [...] Bryson PH.D., M.D. Unavailable Unavailable Thomas, C Bryosn PH.D., M.D. Unavailable Unavailable Thomas, C Bryson [...] C Bryson PH.D., M.D. Unavailable Unavailable Thomas, Shadi Massey PH.D., M.D. Unavailable Unavailable Thomas, Shadi Massey PH.D., M.D. Unavailable Unavailable Thomas, Shadi Massey PH.D., M.D. Unavailable Unavailable Thomas, Shadi Massey PH.D., M.D. Unavailable Unavailable Thomas, Shadi Massey PH.D., M.D. Unavailable Unavailable Thomas, Shadi Massey PH.D., M.D. Unavailable Unavailable ThomasShadi PH.D., M.D. Unavailable Unavailable Thomas, Shadi Massey PH.D., M.D. Unavailable Unavailable Thomas, Shadi Massey PH.D., M.D. Unavailable Unavailable Thomas, Shadi Massey PH.D., M.D. Unavailable Unavailable Re-disclosure Warning The [...] is protected by Article 27-F of the [facility] Public Health law. If you continue you may have access to information: Regarding HIV / AIDS; Provided by facilities licensed or operated by the [facility] Office of Mental Health; or Provided by the [facility] Office for People With Developmental Disabilities. If such information is present, then the following [facility] mandated warning applies: This information has been [...] law may result in a fine or prison sentence or both. A general authorization for the release of medical or other information is NOT sufficient authorization for further disc losure. Allergies and Adverse Reactions Type Description Substance Reaction Status Data Source(s ) Propensity to adverse reactions LATEX Latex Rash [facility] Propensity to adverse [facility] Family History Family Member Name Family Member Gender Family Member Status Date o f Status Description Data Source(s) Unknown Unknown Problem [facility] ([facility]) Unknown Male Problem MEDENT ([facility]) Unknown Female Unknown Male Encounters Encounter Providers Location Date Indications Data Source(s ) Outpatient Attender: Addis Nicholson MDReferrer: Isai pickett MD 06/16/2021 12:00:00 AM [facility] Outpatient Attender: Isai Blair MD 03/03/2021 12:00: [address] [facility] Outpatient Attender: Isai Leal-ONCCACTR 12:00:00 AM EST - 01/29/2021 02:21:06 PM [facility] [address] [facility] [address] 01/27/2021 12:00:00 AM EST eCW1 ([facility]) Outpatient Attender: Isai Leal-ONCCACTR 12:00:00 AM EST - 01/22/2021 02:52:46 PM [facility] [address] [facility] [address] 01/22/2021 12:00:00 AM EST eCW1 ([facility]) Outpatient Attender: Isai Leal-ONCCACTR 12:00:00 AM EDT - 01/16/2021 08:03:47 AM EDT Anaplastic large cell lymphoma, 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, extranodal and solid organ sites [facility] Anaplastic large cell lymphoma, 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, extranodal and solid organ sites Outpatient Attender: Hal Mariscal/Kimberly/Marty/Rein dl 01/08/2021 10:00:00 AM EDT MEDENT ([facility]) Outpatient Attender: Isai Leal-ONCCACTR 12:00:00 AM [facility] Outpatient Attender: Isai Blair MD 01/06/2021 12:00: 00 AM [facility] Outpatient Attender: Isai Leal-ONCCACTR 12:00:00 AM EDT - 01/01/2021 12:02:50 PM EDT [facility] Outpatient Attender: Isai Leal-ONCCACTR 12:00:00 AM EDT - 12/26/2020 08:07:20 AM EDT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, nasal type [facility]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, nasal typ e Outpatient [address] [facility] [address] 12/23/2020 12:00:00 AM EDT eCW1 ([facility]) Outpatient Attender: Isai Leal-ONCCACTR 12:00:00 AM EDT - 12/16/2020 03:39:15 PM T [facility] al Unknown [address] [facility] [address] 12/12/2020 12:00:00 AM EDT eCW1 ([facility]) Outpatient Attender: Isai Blair MDReferrer: Isai Blair MD 12/11/2020 12:00:00 AM [facility] Outpatient Attender: Isai Blair MD 12/11/2020 12:00: 00 AM [facility] Outpatient Attender: Bryson Guzman PH.D., M.D. [place]/Kimberly/Thanh camacho/Leodan 12/09/2020 11:30:00 AM EDT [facility] ([facility] Unknown [address] [facility] [address] 12/08/2020 12:00:00 AM EDT eCW1 ([facility]) Outpatient Attender: Isai Blair MDAdmitter: Junaid Blair MD 07A-ONCCACTR 12/04/2020 12:00:00 AM EDT - 12/04/2020 11:47:27 AM EDT [facility] Unknown [address] [facility] [address] 12/03/2020 12:00:00 AM EDT eCW1 ([facility]) Outpatient Attender: Bryson Guzman PH.D., M.D. [place]/A ngel/Reindl 12/02/2020 08:30:00 AM EDT MEDENT ([facility], ) Outpatient [address] [facility] [place] [address] 12/02/2020 12:00:00 AM EDT eCW1 ([facility]) Unknown [address] [facility] [place] [address] 12/01/2020 12:00:00 AM EDT eCW1 ([facility]) Unknown [address] [facility] [place] [address] 11/30/2020 12:00:00 AM EDT eCW1 ([facility]) Outpatient Attender: Bryson Guzman PH.D., MMarielos. [place]/A ngel/Reindl 11/19/2020 10:45:00 AM EDT MEDENT ([facility], ) Outpatient Admitter: Daniel La MDReferrer: Daniel La MD 11/11/2020 12:00:00 AM EDT Unspecified B-cell lymphoma, unspecified site [facility] Unspecified B-cell lymphoma, unspecified site Outpatient Attender: Alec Mariscal/[place]/Marty/Re indl 10/09/2020 10:30:00 AM EDT MEDENT ([facility] ) Outpatient Attender: Alec Mariscal/[place]/Marty/Re indl 09/22/2020 01:30:00 PM EDT [facility] ([facility] Outpatient Attender: Osiris Barclay FNPReferrer: Osiris PRECIADO SJP .EUGENE-SJP.EUGENE 09/12/2020 02:15:18 PM EDT - 09/12/2020 03:16:06 PM EDT [facility] Outpatient Attender: Osiris Barclay FNPReferrer: Osiris PRECIADO SJP .EUGENE-SJP.EUGENE 09/12/2020 12:00:00 AM EDT - 09/12/2020 03:29:17 PM EDT [facility] Outpatient Attender: Walt Mariscal/[place]/Marty/R eindl 09/09/2020 10:30:00 AM EDT [facility] ([facility]) Unknown [address] [facility] [address] 09/05/2020 12:00:00 AM EDT eCW1 ([facility]) Outpatient Attender: Osiris CURIELP.EUGENE-SJP.EUGENE 10:22:45 AM EDT - 07/18/2020 11:47:40 AM EDT [facility] Office Visit Attender: Alec Mariscal/[place]/Marty/Re indl 07/04/2020 11:15:00 AM EDT MEDENT ([facility]) Outpatient Attender: Walt Mariscal/[place]/Marty/R eindl 06/26/2020 11:15:00 AM EDT MEDENT ([facility]) Office Visit Attender: Alec Mariscal/[place]/Marty/Re indl 06/19/2020 09:00:00 AM EDT MED[facility] ([facility]) Office Visit Attender: Alce Mariscal/[place]/Marty/Re indl 06/11/2020 10:30:00 AM EDT MED[facility] ([facility] Unknown [address] [facility] [place] [address] 06/05/2020 12:00:00 AM EDT eCW1 ([facility]) Office Visit, Est Pt., Level 5 PC [address] [place] [address] 06/05/2020 12:00:00 AM EDT eCW1 ([facility]) Outpatient Attender: Alec Mariscal/Kimberly/Marty/Re indl 05/20/2020 09:45:00 AM EST MEDENT ([facility]) Outpatient Attender: Alec Mariscal/Kimberly/Marty/Re indl 05/07/2020 09:15:00 AM EST MED[facility] ([facility]) Outpatient Attender: Alec Mariscal/Kimberly/Marty/Re indl 04/01/2020 08:30:00 AM EST [facility] ([facility] Unknown [address] [facility] [place] [address] 04/01/2020 12:00:00 AM EST eCW1 ([facility]) Unknown [address] [facility] [place] [address] 03/11/2020 12:00:00 AM EST eCW1 ([facility]) Unknown [address] [facility] [place] [address] 03/10/2020 12:00:00 AM EST eCW1 ([facility]) Outpatient Attender: ROMA ovalle 03/04/2020 04:00:00 PM EST [facility] ([facility] Outpatient [address] [facility] [place] [address] 02/27/2020 12:00:00 AM EST eCW1 ([facility]) Outpatient Attender: Walt Mariscal/Kimberly/Marty/R eindl 02/18/2020 08:45:00 AM EST [facility] ([facility] Unknown [address] [facility] [place] [address] 02/18/2020 12:00:00 AM EST eCW1 ([facility]) Unknown [address] [facility] [place] [address] 02/13/2020 12:00:00 AM EST eCW1 ([facility]) Outpatient [address] [facility] [address] 02/12/2020 12:00:00 AM EST eCW1 ([facility]) Unknown [address] [facility] [address] 01/28/2020 12:00:00 AM EST eCW1 ([facility]) Unknown [address] [facility] [place] [address] 01/28/2020 12:00:00 AM EST eCW1 ([facility]) Outpatient Attender: Osiris HUNTER-DALE 0 12:00:00 AM EST - 01/15/2020 09:59:21 AM EST [facility] Office Visit, Est Pt., Level 3 PC [address] [place] [address] 01/01/2020 12:00:00 AM EDT eCW1 ([facility]) Unknown [address] [facility] [address] 12/31/2019 12:00:00 AM EDT eCW1 ([facility]) Outpatient Attender: Walt Mariscal/Kimberly/Marty/Beverly cristina 12/27/2019 11:15:00 AM EDT MEDENT ([facility] ) Immunizations Vaccine Date Status Description Data Source(s) influenza, recombinant, quadrIvalent,injectable, prese rvative free 12/23/2020 12:16:00 PM EDT completed eCW1 ([facility]) influenza, recombinant, quadrIvalent,injectable, prese rvative free 12/23/2020 12:16:00 PM EDT completed eCW1 ([facility]) influenza, recombinant, quadrIvalent,injectable, prese rvative free 12/23/2020 12:16:00 PM EDT completed eCW1 ([facility]) influenza, recombinant, quadrIvalent,injectable, prese rvative free 12/23/2020 12:16:00 PM EDT completed [facility] ([facility]) COVID-19 VACCINE Julio 07/25/2020 12:00:00 AM EDT completed [facility] Vaccine Series Complete: YESThis Data wa s Submitted to [facility] Via [employer]. Medications Medication Brand Name Start Date Product Form Dose Route Admi nistrative Instructions Pharmacy Instructions Status Indications Reaction Description Data Source(s) 500 mg 01/23/2021 12:00:00 AM EST tablet 20 TAKE ONE TABLET BY MOUTH TWICE A DAY FOR 10 DAYS TAKE ONE TABLET BY MOUTH TWICE A DAY FOR 10 DAYS SOLD: 01/24/2021 [facility] 8 mg 01/19/2021 12:00:00 AM EST tablet 9 TAKE ONE TABLET BY MOUTH EVERY 8 HOURS NEEDED FOR NAUSEA AND VOMITING TAKE ONE TABLET BY MOUTH EVERY 8 HOURS NEEDED FOR NAUSEA AND VOMITING SOLD: 01/24/2021 [facility] 4 mg 01/18/2021 12:00:00 AM EDT tablet 9 TAKE TWO TABLETS BY MOUTH TWICE A DAY TAKE TWO TABLETS BY MOUTH TWICE A DAY SOLD: 01/18/2021 [facility] 8 mg 01/17/2021 12:00:00 AM EDT tablet 2 TAKE ONE TABLET BY MOUTH EVERY 8 HOURS NEEDED FOR NAUSEA AND VOMITING TAKE ONE TABLET BY MOUTH EVERY 8 HOURS NEEDED FOR NAUSEA AND VOMITING SOLD: 01/18/2021 [facility] 200 mg 01/09/2021 12:00:00 AM EDT tablet [...] MOUTH EVERY 6 HOURS NEEDED SOLD: 12/25/2020 [facility] Alprazolam 0.25 MG Oral Tablet ALPRAZOLAM [...] AM EDT active Voriconazole 200 MG eCW1 ([facility]) voriconazole 200 MG Oral Tablet Voriconazole 200 MG Voricona zole 200 MG 12/02/2020 12:00:00 AM EDT active Voriconazole 200 MG eCW1 ([facility]) voriconazole 200 MG Oral Tablet Voriconazole 200 MG Voricona zole 200 MG 12/02/2020 12:00:00 AM EDT active Voriconazole 200 MG eCW1 ([facility]) 10 mg 10/10/2020 12:00:00 AM EDT tablet [...] 10/10/2020 12:00:00 AM EDT ORAL completed MEDENT ([facility], ) 250 mg 10/09/2020 12:00:00 AM EDT tablet 14 TAKE ONE TABLET BY MOUTH EVERY DAY FOR 14D AYS TAKE ONE TABLET BY MOUTH EVERY DAY FOR 14D AYS SOLD: [facility] Levofloxacin 250 MG Oral Tablet Levofloxacin 10/09/2020 12:00:00 AM E DT ORAL completed MEDENT ([facility], ) 250 mg 10/09/2020 12:00:00 AM [...] 12:00: 00 AM EDT ORAL completed MEDENT ([facility], ) Mupirocin 20 MG/ML Topical Cream Mupirocin Calcium 09/22/2020 12:00 :00 AM EDT completed MEDENT ([facility], ) 25 mg 09/17/2020 12:00:00 AM [...] tablet (12.5 mg total) by mouth daily [facility] Hypertension, essential Simvastatin 40 MG Oral Tablet simvastatin (ZOCOR) 40 M G tablet simvastatin (ZOCOR) 40 MG tablet 09/04/2020 12:00:00 AM EDT active TAKE ONE TABLET BY MOUTH NIGHTLY [facility] Cefuroxime 500 MG Oral Tablet Cefuroxime Axetil 08/21/2020 12:00:00 A M EDT ORAL completed MEDENT ([facility], ) Prednisone 10 MG Oral Tablet Prednisone 08/21/2020 12:00:00 AM EDT ORAL completed [facility] ([facility], ) 10 mg 08/21/2020 12:00:00 AM EDT [...] BY MOUTH TWICE A DAY SOLD: 08/21/2020 [facility] CPAP 07/18/2020 12:00:00 AM EDT active MEDENT ([facility], ) Lisinopril 40 MG Oral Tablet lisinopril (PRINIVIL,ZEST RIL) 40 MG tablet lisinopril (PRINIVIL,ZESTRIL) 40 MG tablet 06/18/2020 12:00:00 AM EDT active Hypertension, essential TAKE ONE TABLET BY MOUTH DAILY [facility] Hypertension, essential 20 mg 05/20/2020 12:00:00 AM EST tablet 14 TAKE ONE TABLET BY MOUTH TWICE A DAY FOR 7 DAYS PRIOR TO SURGERY TAKE ONE TABLET BY MOUTH TWICE A DAY FOR 7 DAYS PRIOR TO SURGERY SOLD: 05/28/2020 [facility] Prednisone 20 MG Oral Tablet Prednisone 05/20/2020 12:00:00 AM EST ORAL completed MEDENT ([facility], ) 875-125 mg 05/20/2020 12:00:00 AM EST [...] 1 ONCE DAILY FOR 7DAYS SOLD: 04/01/2020 [facility] 875-125 mg 04/01/2020 12:00:00 AM EST tablet 30 TAKE ONE TABLET BY MOUTH TWICE A DAY TAKE ONE TABLET BY MOUTH TWICE A DAY SOLD: 04/01/2020 [facility] Amoxicillin 875 MG / Clavulanate 125 MG Oral Tablet Am oxicillin/Clavulanate Potassium 04/01/2020 12:00:00 AM EST ORAL completed MEDENT ([facility], ) Amoxicillin 500 MG / Clavulanate 125 MG Oral Tablet [Augment in] Augmentin 03/16/2020 12:00:00 AM EST ORAL completed [facility] ([facility], ) 500-125 mg 03/16/2020 12:00:00 AM EST tablet 20 TAKE ONE TABLET BY MOUTH TWICE A DAY FOR 10 DAYS TAKE ONE TABLET BY MOUTH TWICE A DAY FOR 10 DAYS SOLD: 03/17/2020 [facility] Aspir-Low 81 MG UNK 03/11/2020 12:00:00 AM EST 1.0 {tablet} active Aspir-Low 81 MG eCW1 ([facility]) 10 mg 03/11/2020 12:00:00 AM EST tablet [...] FOR 4 DAYS THEN STOP SOLD: 03/11/2020 [facility] Prednisone 10 MG Oral Tablet Prednisone 03/11/2020 12:00:00 AM EST ORAL completed MEDENT ([facility], ) Aspir-Low 81 MG UNK 03/11/2020 12:00:00 AM EST 1.0 {tablet} active Aspir-Low 81 MG eCW1 ([facility]) Aspir-Low 81 MG UNK 03/11/2020 12:00:00 AM EST 1.0 {tablet} active Aspir-Low 81 MG eCW1 ([facility]) Aspir-Low 81 MG UNK 03/11/2020 12:00:00 AM EST 1.0 {tablet} active Aspir-Low 81 MG eCW1 ([facility]) Prednisone 20 MG Oral Tablet Prednisone 03/04/2020 12:00:00 AM EST active MEDENT ([facility]) 20 mg 03/04/2020 12:00:00 AM EST tablet 10 TAKE ONE TABLET BY MOUTH TWICE A DAY FOR 5 DAYS TAKE ONE TABLET BY MOUTH TWICE A DAY FOR 5 DAYS SOLD: 2019 [facility] Doxycycline Monohydrate 100 MG Oral Capsule Doxycycline Mcpherson hydrate 100 MG 02/18/2020 12:00:00 AM EST 1.0 {capsule} active Doxycycline Monohydrate 100 MG eCW1 ([facility]) Doxycycline Monohydrate 100 MG Oral Capsule Doxycycline Mcpherson hydrate 100 MG 02/18/2020 12:00:00 AM EST 1.0 {capsule} suspend ed Doxycycline Monohydrate 100 MG eCW1 ([facility]) Doxycycline Monohydrate 100 MG Oral Capsule Doxycycline Mcpherson hydrate 100 MG 02/18/2020 12:00:00 AM EST 1.0 {capsule} active Doxycycline Monohydrate 100 MG eCW1 ([facility]) Doxycycline Monohydrate 100 MG Oral Capsule Doxycycline Mcpherson hydrate 100 MG 02/18/2020 12:00:00 AM EST 1.0 {capsule} suspend ed Doxycycline Monohydrate 100 MG eCW1 ([facility]) Doxycycline Monohydrate 100 MG Oral Capsule Doxycycline Mcpherson hydrate 100 MG 02/18/2020 12:00:00 AM EST 1.0 {capsule} active Doxycycline Monohydrate 100 MG eCW1 ([facility]) Doxycycline Monohydrate 100 MG Oral Capsule Doxycycline Mcpherson hydrate 100 MG 02/18/2020 12:00:00 AM EST 1.0 {capsule} active Doxycycline Monohydrate 100 MG eCW1 ([facility]) Doxycycline Monohydrate 100 MG Oral Capsule Doxycycline Mcpherson hydrate 100 MG 02/18/2020 12:00:00 AM EST 1.0 {capsule} active Doxycycline Monohydrate 100 MG eCW1 ([facility]) Doxycycline Monohydrate 100 MG Oral Capsule Doxycycline Mcpherson hydrate 100 MG 02/18/2020 12:00:00 AM EST 1.0 {capsule} active Doxycycline Monohydrate 100 MG eCW1 ([facility]) 100 mg 02/18/2020 12:00:00 AM EST capsule 20 TAKE ONE CAPSULE BY MOUTH TWICE A DAY FOR 10 DAYS TAKE ONE CAPSULE BY MOUTH TWICE A DAY FOR 10 DAYS SOLD : 02/23/2020 [facility] Doxycycline Monohydrate 100 MG Oral Capsule Doxycycline Mcpherson hydrate 100 MG 02/18/2020 12:00:00 AM EST 1.0 {capsule} active Doxycycline Monohydrate 100 MG eCW1 ([facility]) Doxycycline Monohydrate 100 MG Oral Capsule Doxycycline Mcpherson hydrate 100 MG 02/18/2020 12:00:00 AM EST 1.0 {capsule} active Doxycycline Monohydrate 100 MG eCW1 ([facility]) Doxycycline Monohydrate 100 MG Oral Capsule Doxycycline Mcpherson hydrate 100 MG 02/18/2020 12:00:00 AM EST 1.0 {capsule} active Doxycycline Monohydrate 100 MG eCW1 ([facility]) Doxycycline Monohydrate 100 MG Oral Capsule Doxycycline Mcpherson hydrate 100 MG 02/18/2020 12:00:00 AM EST 1.0 {capsule} active Doxycycline Monohydrate 100 MG eCW1 ([facility]) Doxycycline Monohydrate 100 MG Oral Capsule Doxycycline Mcpherson hydrate 100 MG 02/18/2020 12:00:00 AM EST 1.0 {capsule} active Doxycycline Monohydrate 100 MG eCW1 ([facility]) Doxycycline Monohydrate 100 MG Oral Capsule Doxycycline Mcpherson hydrate 100 MG 02/18/2020 12:00:00 AM EST 1.0 {capsule} suspend ed Doxycycline Monohydrate 100 MG eCW1 ([facility]) Sulfamethoxazole 800 MG / Trimethoprim 160 MG [...] active Bactrim DS 800-160 MG eCW1 ( [facility]) Trazodone Hydrochloride 50 MG Oral Tablet traZODone HC l 50 MG traZODone HCl 50 MG 01/28/2020 12:00:00 AM EST 1.0 {tablet_at_bedtime_as_needed} active traZODone HCl 50 MG eCW1 ([facility]) Trazodone Hydrochloride 50 MG Oral Tablet traZODone HC l 50 MG traZODone HCl 50 MG 01/28/2020 12:00:00 AM EST 1.0 {tablet_at_bedtime_as_needed} active traZODone HCl 50 MG eCW1 ([facility]) Trazodone Hydrochloride 50 MG Oral Tablet traZODone HC l 50 MG traZODone HCl 50 MG 01/28/2020 12:00:00 AM EST 1.0 {tablet_at_bedtime_as_needed} active traZODone HCl 50 MG eCW1 ([facility]) Trazodone Hydrochloride 50 MG Oral Tablet TraZODone HC l 50 MG TraZODone HCl 50 MG 01/28/2020 12:00:00 AM EST 1.0 {tablet_at_bedtime_as_needed} active TraZODone HCl 50 MG eCW1 ([facility]) Trazodone Hydrochloride 50 MG Oral Tablet traZODone HC l 50 MG traZODone HCl 50 MG 01/28/2020 12:00:00 AM EST 1.0 {tablet_at_bedtime_as_needed} active traZODone HCl 50 MG eCW1 ([facility]) Trazodone Hydrochloride 50 MG Oral Tablet TraZODone HC l 50 MG TraZODone HCl 50 MG 01/28/2020 12:00:00 AM EST 1.0 {tablet_at_bedtime_as_needed} active TraZODone HCl 50 MG eCW1 ([facility]) Trazodone Hydrochloride 50 MG Oral Tablet traZODone HC l 50 MG traZODone HCl 50 MG 01/28/2020 12:00:00 AM EST 1.0 {tablet_at_bedtime_as_needed} active traZODone HCl 50 MG eCW1 ([facility]) Trazodone Hydrochloride 50 MG Oral Tablet TraZODone HC l 50 MG TraZODone HCl 50 MG 01/28/2020 12:00:00 AM EST 1.0 {tablet_at_bedtime_as_needed} active TraZODone HCl 50 MG eCW1 ([facility]) Trazodone Hydrochloride 50 MG Oral Tablet TraZODone HC l 50 MG TraZODone HCl 50 MG 01/28/2020 12:00:00 AM EST 1.0 {tablet_at_bedtime_as_needed} active TraZODone HCl 50 MG eCW1 ([facility]) Trazodone Hydrochloride 50 MG Oral Tablet traZODone HC l 50 MG traZODone HCl 50 MG 01/28/2020 12:00:00 AM EST 1.0 {tablet_at_bedtime_as_needed} active traZODone HCl 50 MG eCW1 ([facility]) Trazodone Hydrochloride 50 MG Oral Tablet TraZODone HC l 50 MG TraZODone HCl 50 MG 01/28/2020 12:00:00 AM EST 1.0 {tablet_at_bedtime_as_needed} active TraZODone HCl 50 MG eCW1 ([facility]) Trazodone Hydrochloride 50 MG Oral Tablet traZODone HC l 50 MG traZODone HCl 50 MG 01/28/2020 12:00:00 AM EST 1.0 {tablet_at_bedtime_as_needed} active traZODone HCl 50 MG eCW1 ([facility]) Trazodone Hydrochloride 50 MG Oral Tablet TraZODone HC l 50 MG TraZODone HCl 50 MG 01/28/2020 12:00:00 AM EST 1.0 {tablet_at_bedtime_as_needed} active TraZODone HCl 50 MG eCW1 ([facility]) Trazodone Hydrochloride 50 MG Oral Tablet TraZODone HC l 50 MG TraZODone HCl 50 MG 01/28/2020 12:00:00 AM EST 1.0 {tablet_at_bedtime_as_needed} active TraZODone HCl 50 MG eCW1 ([facility]) Trazodone Hydrochloride 50 MG Oral Tablet TraZODone HC l 50 MG TraZODone HCl 50 MG 01/28/2020 12:00:00 AM EST 1.0 {tablet_at_bedtime_as_needed} active TraZODone HCl 50 MG eCW1 ([facility]) Trazodone Hydrochloride 50 MG Oral Tablet traZODone HC l 50 MG traZODone HCl 50 MG 01/28/2020 12:00:00 AM EST 1.0 {tablet_at_bedtime_as_needed} active traZODone HCl 50 MG eCW1 ([facility]) Trazodone Hydrochloride 50 MG Oral Tablet traZODone HC l 50 MG traZODone HCl 50 MG 01/28/2020 12:00:00 AM EST 1.0 {tablet_at_bedtime_as_needed} active traZODone HCl 50 MG eCW1 ([facility]) Trazodone Hydrochloride 50 MG Oral Tablet TraZODone HC l 50 MG TraZODone HCl 50 MG 01/28/2020 12:00:00 AM EST 1.0 {tablet_at_bedtime_as_needed} active TraZODone HCl 50 MG eCW1 ([facility]) Trazodone Hydrochloride 50 MG Oral Tablet TraZODone HC l 50 MG TraZODone HCl 50 MG 01/28/2020 12:00:00 AM EST 1.0 {tablet_at_bedtime_as_needed} active TraZODone HCl 50 MG eCW1 ([facility]) Trazodone Hydrochloride 50 MG Oral Tablet TraZODone HC l 50 MG TraZODone HCl 50 MG 01/28/2020 12:00:00 AM EST 1.0 {tablet_at_bedtime_as_needed} active TraZODone HCl 50 MG eCW1 ([facility]) Trazodone Hydrochloride 50 MG Oral Tablet traZODone HC l 50 MG traZODone HCl 50 MG 01/28/2020 12:00:00 AM EST 1.0 {tablet_at_bedtime_as_needed} active traZODone HCl 50 MG eCW1 ([facility]) Simvastatin 40 MG Oral Tablet simvastatin (ZOCOR) 40 M G tablet simvastatin (ZOCOR) 40 MG tablet 01/09/2020 12:00:00 AM EDT 40 mg Oral aborted Take 1 tablet (40 mg total) by mouth nightly [facility] Levofloxacin 500 MG Oral Tablet Levofloxacin 500 MG 01/01/2020 1 2:00:00 AM EDT 1.0 {tablet} active Levofloxaci n 500 MG eCW1 ([facility]) Levofloxacin 500 MG Oral Tablet Levofloxacin 500 MG 01/01/2020 1 2:00:00 AM EDT 1.0 {tablet} active Levofloxaci n 500 MG eCW1 ([facility]) 500 mg 01/01/2020 12:00:00 AM EDT tablet 10 TAKE ONE TABLET BY MOUTH EVERY DAY FOR 10 DAYS TAKE ONE TABLET BY MOUTH EVERY DAY FOR 10 DAYS SOLD: 020 [facility] Levofloxacin 500 MG Oral Tablet Levofloxacin 500 MG 01/01/2020 1 2:00:00 AM EDT 1.0 {tablet} active Levofloxaci n 500 MG eCW1 ([facility]) Levofloxacin 500 MG Oral Tablet Levofloxacin 500 MG 01/01/2020 1 2:00:00 AM EDT 1.0 {tablet} suspended Levofloxa analia 500 MG eCW1 ([facility]) Levofloxacin 500 MG Oral Tablet Levofloxacin 500 MG 01/01/2020 1 2:00:00 AM EDT 1.0 {tablet} active Levofloxaci n 500 MG eCW1 ([facility]) Cefuroxime 500 MG Oral Tablet Cefuroxime Axetil 12/27/2019 12:00:00 A M EDT ORAL completed MEDENT ([facility], ) 500 mg 12/27/2019 12:00:00 AM EDT tablet 20 TAKE ONE TABLET BY MOUTH TWICE A DAY WITH FOOD UNTIL GONE TAKE ONE TABLET BY MOUTH TWICE A DAY WIT H FOOD UNTIL GONE SOLD: 12/28/2019 [facility] Lisinopril 40 MG Oral Tablet lisinopril (PRINIVIL,ZEST RIL) 40 MG tablet lisinopril (PRINIVIL,ZESTRIL) 40 MG tablet 08/20/2019 12:00:00 AM EDT 40 mg Oral aborted Hypertension, essential T uli 1 tablet (40 mg total) by mouth daily [facility] Hypertension, essential Hydrochlorothiazide 12.5 MG Oral Tablet hydrochlorothiazide (HYDRODIURIL) 12.5 MG tablet hydrochlorothiazide (HYDRODIURIL) 12.5 MG tablet 08/06 12:00:00 AM EDT 12.5 mg Oral aborted Hypertension, essential Take 1 tablet (12.5 mg total) by mouth daily [facility] Hypertension, essential doxycycline hyclate 100 MG Oral Tablet DOXYCYCLINE HYCLATE 0 06/19/2019 12:00:00 AM EDT tablet 60 TAKE ONE TABLET BY MOUTH TWI CE A DAY TAKE ONE TABLET BY MOUTH TWICE A DAY SOLD: 02/14/2020 [facility] Insurance Providers Payer name Policy type / Coverage type Policy ID Covered constitution party ID Covered constitution party's relationship to walsh Policy Walsh Plan Information [employer] [id number] SP [id number] [employer] PPO 2 [id number] Tpa/[place] Eff () Workers Compensation [id number] Self [id number] [employer] () Workers Compensation [id number] Self UMR U [id number] Self [id number] UMR [id number] [id number] MEDICARE [id number] xxxxxxxxxxx [id number] UMR [id number] Fabi [id number] MEDICARE [id number] Fabi [id number] MEDICARE A [id number] Self [id number] [employer] (pr) Commercial [id number] Self [employer] PPO O [id number] S [id number] [employer] Commercial [id number] Self [employer] [id number] SELF PAY 2 UNAVAILABLE 1 UNAVAILA BLE Umr Commercial [id number] Self [id number] MEDICARE [id number] SP [id number] SELF PAY ONLY [id number] SP [id number] UMR O [id number] S [id number] MEDICARE C [id number] S [id number] Umr/Uhc/[employer] Medigap Part B [id number] Self [id number] Medicare Natl Gov't Servi Medicare Primary [id number] Self [id number] [employer] Medigap Part B [id number] Self [id number] R [facility] [id number] SP [id number] [place] Medicare Primary [id number] Self [id number] [facility] [id number] [facility] Commercial [id number] Self Problems, Conditions, and Diagnoses Code Display Name Description Problem Type Effective Dates Data Source(s) 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, nasal typ e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, nasal type Diagnosis 01/15/2021 12:00:00 AM EDT [facility] 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, 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00 Dyspnea, unspecified Dyspnea, unspecified Diagnosis 09/12/2020 02:21:30 PM EDT [facility] I25.10 Atherosclerotic heart diseas e of [place] coronary artery without angina pectoris Atherosclerotic heart disease of [place] Diagnosis 09/12/2020 02:21:30 PM EDT [facility] 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, unspecif ied Rheumatic mitral valve disease, unspecif Diagnosis 09/12/2020 02:15:18 PM EDT [facility] E78.2 Mixed hyperlipidemia Mixed hyperlipidemia Diagnosis 07/18/2020 10:22:45 AM EDT [facility] Z95.5 Presence of coronary angioplasty implant and graft Presence of coronary angioplasty implant Diagnosis 07/18/2020 10:22:45 AM EDT [facility] R60.0 Localized edema Localized edema Diagnosis 07/18/2020 10:2 2:45 AM EDT [facility] Z23 [id number] Encounter for immunization Problem 12:00:00 AM EDT eCW1 ([facility]) G47.33 [id number] Obstructive sleep apnea Problem 12/02/2020 1 2:00:00 AM EDT eCW1 ([facility]) I25.10 [id number] Coronary artery dise ase involving [place] coronary artery of [place] heart without angina pectoris Problem 12/02/2020 12:00:00 AM EDT eCW1 ([facility]) 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 12/02/2020 12:00:00 AM EDT eCW1 ([facility]) B44.9 [id number] Aspergillosis Problem 12/02/2020 12:00:00 AM EDT eCW1 ([facility]) J32.0 [id number] Chronic maxillary sinusitis Problem 12/03/19 12:00:00 AM EDT eCW1 ([facility]) C85.91 [id number] Lymphoma of lymph nodes of head, unspecified lymphoma type Problem 12/02/2020 12:00:00 AM EDT eCW1 ([facility]) 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 Chronic fronto ethmoidal sinusitis Problem 11/19/2020 12:00:00 AM EDT [facility] ([facility] Z95.1 Hx of CABG Hx of CABG [id number] 07/18/2020 12:00:00 AM ED T [facility] J47.9 [id number] Recurrent bronchiectasis Problem 06/05/2020 12:00:00 AM EDT eCW1 ([facility]) R73.01 [id number] IFG (impaired fasting glucose) Problem 06/05/2020 12:00:00 AM EDT eCW1 ([facility]) G47.33 [id number] BALAJI (obstructive sleep apnea) Problem 06/05/2020 12:00:00 AM EDT eCW1 ([facility]) J32.9 [id number] Chronic sinusitis, unspecified Problem 03/10/2020 12:00:00 AM EST eCW1 ([facility]) R79.89 [id number] Elevated LFTs Problem 02/27/2020 12:00:00 AM EST eCW1 ([facility]) Z12.11 [id number] Colon cancer screening Problem 02/19/2020 12 :00:00 AM EST eCW1 ([facility]) J32.1 [id number] Chronic frontal sinusitis Problem 02/12/2020 12:00:00 AM EST eCW1 ([facility]) J32.9 Chronic sinusitis Rhinosinusitis Problem 01/01/2020 12: 00:00 AM EDT eCW1 ([facility]) Surgeries/Procedures Procedure Description Date Indications Data Source(s) OFFICE OUTPATIENT VISIT 15 MINUTES 01/08/2021 12:00:00 AM EDT [facility] ([facility], ) Imm: Flublok Quadrivalent 18 years & older 0.5mL IM Influenz a 12/23/2020 12:00:00 AM EDT eCW1 ([facility]) Endoscopy Nasal/Sinus Surgical W/BX/Polypectomy/Debridement 12/09/2020 12:00:00 AM EDT MEDENT ([facility] [place], ) OFFICE OUTPATIENT VISIT 15 MINUTES 12/09/2020 12:00:00 AM EDT MEDENT ([facility], ) Endoscopy Nasal/Sinus Surgical W/BX/Polypectomy/Debridement 12/02/2020 12:00:00 AM EDT MED[facility] ([facility] [place], ) OFFICE OUTPATIENT VISIT 15 MINUTES 12/02/2020 12:00:00 AM EDT MEDENT ([facility], ) Endoscopy Nasal/Sinus Surgical W/BX/Polypectomy/Debridement 11/19/2020 12:00:00 AM EDT MEDENT ([facility]) OFFICE OUTPATIENT VISIT 25 MINUTES 11/19/2020 12:00:00 AM EDT [facility] (Health system) Endoscopy Nasal Diagnostic 11/11/2020 12:00:00 AM EDT [facility] (Health system) Endoscopy Nasal Diagnostic 10/27/2020 12:00:00 AM EDT [facility] (Health system) Spirometry 10/10/2020 12:00:00 AM EDT M [facility]ENT (Health system) Plethysmography Determination Lung Volumes & Per Airway Resi st 10/10/2020 12:00:00 AM EDT MEDENT ([facility]) DIFFUSING CAPACITY 10/10/2020 12:00:00 AM EDT [facility] (Health system) OFFICE OUTPATIENT VISIT 15 MINUTES 10/09/2020 12:00:00 AM EDT [facility] (Health system) Endoscopy Nasal Diagnostic 09/22/2020 12:00:00 AM EDT [facility] (Health system) OFFICE OUTPATIENT VISIT 25 MINUTES 09/22/2020 12:00:00 AM EDT [facility] (Health system) Spirometry 09/09/2020 12:00:00 AM EDT M [facility]ENT (Health system) OFFICE OUTPATIENT VISIT 25 MINUTES 09/09/2020 12:00:00 AM EDT [facility] (Health system) OFFICE OUTPATIENT VISIT 15 MINUTES 06/26/2020 12:00:00 AM EDT [facility] (Health system) Septoplasty/Submucous Resection Contour Or Replacement W/Gra ft 06/09/2020 12:00:00 AM EDT [facility] ([facility]) Endoscopy Nasal/Sinus Surgical W/ Ethmoidectomy Total 06/09/2020 12:00:00 AM EDT MED[facility] ([facility]) Endoscopy Nasal/Sinus Surgical Remove Tissue From Maxillary Sinus 06/09/2020 12:00:00 AM EDT MED[facility] ([facility]) OFFICE OUTPATIENT VISIT 15 MINUTES 05/20/2020 12:00:00 AM EST MED[facility] ([facility], ) BIOPSY INTRANASAL 05/12/2020 12:00:00 AM EST [facility] (Health system) OFFICE OUTPATIENT VISIT 25 MINUTES 05/07/2020 12:00:00 AM EST [facility] (Health system) Endoscopy Nasal Diagnostic 04/01/2020 12:00:00 AM EST [facility] (Health system) OFFICE OUTPATIENT NEW 45 MINUTES 04/01/2020 12:00:00 A M EST [facility] Results ID Date Data Source [id number] 01/29/2021 08:49:18 PM EST [facility] Name Value Range Interpretation Code Description Data Kayley rce(s) Supporting Document(s) Progress Note [facility] FZMELj9xMtKURtMp55/CWEvlLDJhs9FcAVmvGAv8QRsrDSGdH1LdOVV3vH2uCBE4RQnROfHkCkMjDBU9 lbm [file] ICAgICAgICAgICAgICAgICAgICAgICAgICAgICAgICAgICAgICAgICAgICAgICAgICAgICAgDQogICAg ICAgICAgICAgICAgICAgICAgICAgICAgICAgICAgIC AgICAgICAgICAgICAgICAgICAgICAgICAgICAgICAgICAgICAgICAgICAgICAgICAgICAgICAgICAgIC AgICAgDQogICAgICAgICAgICAgICAgICAgICAgICAgICAgICAgICAgICAgICAgICAgICAgICAgICAgIC AgICAgICAgICAgICAgICAgICAgICAgICAgICAgICAg ICAgICAgICAgICAgICAgDQogICAgICAgICAgICAgICAgICAgICAgICAgICAgICAgICAgICAgICAgICAg ICAgICAgICAgICAgICAgICAgICAgICAgICAgICAgICAgICAgICAgICAgICAgICAgICAgICAgICAgDQog ICAgICAgICAgICAgICAgICAgICAgICAgICAgICAgIC AgICAgICAgICAgICAgICAgICAgICAgICAgICAgICAgICAgICAgICAgICAgICAgICAgICAgICAgICAgIC AgICAgICAgDQogICAgICAgICAgICAgICAgICAgICAgICAgICAgICAgICAgICAgICAgICAgICAgICAgIC AgICAgICAgICAgICAgICAgICAgICAgICAgICAgICAg ICAgICAgICAgICAgICAgICAgDQogICAgICAgICAgICAgICAgICAgICAgICAgICAgICAgICAgICAgICAg ICAgICAgICAgICAgICAgICAgICAgICAgICAgICAgICAgICAgICAgICAgICAgICAgICAgICAgICAgICAg DQogICAgICAgICAgICAgICAgICAgICAgICAgICAgIC AgICAgICAgICAgICAgICAgICAgICAgICAgICAgICAgICAgICAgICAgICAgICAgICAgICAgICAgICAgIC AgICAgICAgICAgDQogICAgICAgICAgICAgICAgICAgICAgICAgICAgICAgICAgICAgICAgICAgICAgIC AgICAgICAgICAgICAgICAgICAgICAgICAgICAgICAg ICAgICAgICAgICAgICAgICAgICAgDQogICAgICAgICAgICAgICAgICAgICAgICAgICAgICAgICAgICAg ICAgICAgICAgICAgICAgICAgICAgICAgICAgICAgICAgICAgICAgICAgICAgICAgICAgICAgICAgICAg SMNnWKd2T4xiMXTjXSZdEF9bSAt2Gx2+DQoNCmVuZH Y0jiOaoG5BZC5lc2EjURweTWMkx7MgSSt0TW5OOOMkDUilTE5CFAppeh3GJTFcGTWzvSYHf0fdCaOtTJ D3IILeThnfMB4IGNFeE0lxtcRwIOMhSRFHVRbeNYFVPHgdONOWZHWcPPEpDxNkXmGiXQPgWZNqBXXUXQ 5TWtDcB2ZbpK76ILRVQz9+DQplbmRvYmoNCjMyIDAg k8DdMXr4VT5ALDLjBsfub3DgEyCjRXPUMSgpIU1YCRQ4XVErZFNoPv0OPUZxA089cnPiKT6VCz0JYyYh CS3jgc9RUzBqTZOsOemBLqm0ITkzVZ4KmYBdRYhYvr0peiThlfKPd8YiwhUwjEWFaOKwr4QdSYKTVKQl pGCuAJBKWLIlvPRlMA9pRJ4zBIIcAJAxDeDfHUJCXQ 7SUKOoGWMyzUVkRHXwMCAEPH2VHSihOYH6XWKheiAdiHQyZYceAQ3GMBJmlhWuShMvBHTNBPq+Pg0KZW 6vz6JoMXefITOkAK1rqs6VJFiIXmDwI1M8gTOiE5X9SIexUa2KAZZpHAIxOuQdNSFMNDnkGS5COK0uru Y9VD6VxCChJAGzDDBvmZLkGCc1B26hrTQfAHelXI9P ICA+Pallavi+As3CQSDtBJJkYBVbUlOzYCOVZgWiQ1EjF4IDy3UsH1EdXC85sUofegCiTKrzPR3XYI3sXLPc CKRQWX4UfCDyiS6jrdKnQeMvJAPJHzAkS80ylMAmZLEtYAMcZXWeQp6MFHCeA3TfphJbdAzaqmNyEGQs FFFGWA9XTOkiixKulCQwxUjxEP28tRboAL0VOc5GOs KxJP6lax9UgTZtHg1SSPGfVC1KCRRcYAJcFZBzJXQ3YARqDpIhEUukBHGeFLBbBDA7EQRnCKZaSA7MSd JwNILwOZh4PfJtFXGrQUJsjc8DNGIpBRX9VJX4EBPqLDAiHVCcXCyuZHIxNRArBHU0NZGtVYZlYG2LQs IrDWUiVXU7QdSqEQWyVTZcdk2GSPJrRHMhXph0CiBr RRPlVHMvVDzaSQOxDNV9WXS4QVMxXGQfAX6HTbSeBTXzYPn4QFCaOZMyDAOdvj7VLNVfOCEeATd0VwLf ESIxQXBoTSyeUAExXOZhFQi9YMPwKAKlJN8AAbXdFKEdJYK3AmWcSKHzVWFpll5WAMMjCESyFDSrIQHj KVPlLJNrYJvpWRAoQGV0OeN4HIXjTCNtPA4ISdKqUD VyGUz5AUMwYYLaBRQrjv3LWTAfDOEgPDWeORYaMORxLBXtIDwpVFNuVZYnAqAcHZRtZPOuBV3GVfXlAV FiOuI1HqWaBQGyZTTllm8QSRGdMHEdZRo5RdXiQGTfNZAhHEiaVABqRZIrSHDvMEEtXIWqZC6ZVuUjNM EmVwP4PYmkWZIoTBMsht4MQSHlYOOwVmKkYVSsJYGx ZCWkTDneRAIgAPPqUln7WWXlGQYgDC5MMjRvGFHdXVH0QcFzVGZqBIYzds1FJMHcCXA5MiO0DROlAANh KWXyZGjyVEWfVEZ4Dap4PSApHJFtWZ7JVgWsQWOnWYwqZZNxFOGzVXYcis2LENOkIGL8PgS8VDHsIHSd XXWgDTmjTJYxGFM8LfNcXJUwAKDkWY3FFqWePQPzWD y6WeVcXAYtQRJfxd8ADTIdGRN9PJbeRZYwCEMkWCFxRLfqYUBdULH1TYT6DAGgWHGxDB4NFiYvDOZmNG I9SCWdXAGsMGFjwp8YVKSgCAD7YBN7SfMbKIOwIFNqRUopRPQjCWMwXQN7UCWsZPQyAA4XUaUzKNqrON OUBdg6GLbeP7c8OALfGB0BR6Bue4FoTkDvJRXFPFnj AU3ylpGnVKPsIq4UB8rKYmtkZtAeVoL5H0AtMKF6SYW2GNE5H1ZxToBeRIS3YaV9KP3kOZWuLsE6YoTp LAA5Fog3QwB5SwD2Y6FnNgSbHOYoPecxYqQbCO7YJm2TNiS2PVZ7kLIyDx1AWSKlIjJRKtAlDF1BWGr= ID Date Data Source [id number] 01/23/2021 09:07:03 AM [facility] Name Value Range Interpretation Code Description Data Kayley rce(s) Supporting Document(s) Progress Note [facility] IQLOEs6lGjRRAvKh78/FUAqwPGGbo8CzRIbsSLl4YDtpRFGkF8ZoJAG0yL7iLFK1YAhZVkLrXjZhRZCf lbm [file] Gc7HEuL8KCP2eUMgHo1BOCK7VYbUXcBiFZ0UDFt= ID Date Data Source [id number] 01/21/2021 06:01:36 AM [facility] Name Value Range Interpretation Code Description Data Kayley rce(s) Supporting Document(s) Progress Note [facility] BKKQZo6bAhCDByKs83/WVOejBCTir9AwRIrhMYn4ZIhdRXGvA2ItLHR0wO6bEKU7ICvMNvAqToKxJFQb lbm RpOhkKXbXwQXWdGqxOJpGzBXnnOoccrUVrCJ4HvSW7WRFaW92jDFCgQZLsH3KuQAIuYQL+Oc3PZLTfsH CjMV6VExcO0W0sl6dV5JmY/feZtzQ9WJiX5SxlVMQhrFBzGcpK1XykibcSovPA4IjFsxEA+9+Y5N4Ayl zxcnCFA7ERqQdOccvqoNklzP3nPrn/w1cH4IhJOvz/ m1+SMGnkZew4U2WK0tvCvBSTQLh1YG1tYnaP8epDug/Aiytx+VgETFYljX8HExAkDIRZOa28pie0j0im Sbp+Hr2vcFENZ/EHhEi4nvMvaIVQ6tq/vgefwImNGViTM5qcz5j+o41fm7mtpPQOzlu+r4UyodCKOjEa lbgkPaenVvp6yDIZInhGUkfZ2DlyClQjXPB7rSZ5VM tJuYnP4GDkACP2NZSYLNnppsHeigbUQwy3Uvce+7lZIS1Gn9zsiPfBwueE74wqM1CPw9hjNdcgNZhThi JeWwiz1dvtZrTq80Sb6mS8wwA8EdL4IYL2AYXcLaH87HYlC3cII0QSihod7qpFmSi6HoELBKgsfgtLoG 3sAzV4zv+TIwYT5kxqSZBvoT2ifnlc2ddk0kO7PypX rgfKIP7zmgTV8fiFz8OiGyLGOpSYfN2Let66bgTE7XYsyHIFrabJnJCyyQ5PZcY9Mgp8RG1+12A9+Jerel [file] FrN7HkMJ8wSHGCZs3+NQyrjOModRffLADPWuM4ZcJiBEycIKOXYy7S ID Date Data Source [id number] 01/15/2021 09:19:41 AM EDT [facility] Name Value Range Interpretation Code Description Data Kayley rce(s) Supporting Document(s) Leukocytes [#/volume] in Blood by Automated count 9.7 10*3/uL 4-10 [facility] Erythrocytes [#/volume] in Blood by Automated count 3.41 10*6/uL 4.6- 6.1 L [facility] Hemoglobin [Mass/volume] in Blood 10.9 g/dL 13.5-18 L [facility] Hematocrit [Volume Fraction] of Blood by Automated count 32.3 % 4 1-53 L [facility] Erythrocyte mean corpuscular volume [Entitic volume] by Auto mated count 94.8 fL 80-96 [facility] Erythrocyte mean corpuscular hemoglobin [Entitic mass] by Automated count 31.8 pg 27-33 [facility] Erythrocyte mean corpuscular hemoglobin concentration [Mass/volume] by [facility] 33.6 g/dL [facility].0-[facility] width [Ratio] by Automated count 13.9 % 11.5-14.5 [facility] Platelets [#/volume] in Blood by Automated count 342 10*3/uL 150-400 [facility] Differential cell count method - Blood [facility] Neutrophils/100 leukocytes in Blood by Automated count 65 % [facility] Lymphocytes/100 leukocytes in Blood by Automated count 17 % [facility] Monocytes/100 leukocytes in Blood by Automated count 17 % [facility] Eosinophils/100 leukocytes in Blood by Automated count 0 % [facility] Basophils/100 leukocytes in Blood by Automated count 1 % [facility] Neutrophils [#/volume] in Blood by Automated count 6.44 10*3/uL 1.8-7 .0 [facility] Lymphocytes [#/volume] in Blood by Automated count 1.60 10*3/uL 1.2-4 .0 [facility] Monocytes [#/volume] in Blood by Automated count 1.61 10*3/uL 0-0.8 H [facility] Eosinophils [#/volume] in Blood by Automated count 0.00 10*3/uL 0-0.5 [facility] Basophils [#/volume] in Blood by Automated count 0.05 10*3/uL 0-0.2 [facility] Nucleated erythrocytes/100 leukocytes [Ratio] in Blood by Automated count 0 /100{WBCs} 0-0 [facility] ID Date Data Source [id number] 01/15/2021 09:48:17 AM [facility] Value Range Interpretation Code Description Data Kayley rce(s) Supporting Document(s) Prothrombin time (PT) 13.3 s 11.6-14.0 [facility] INR in Platelet poor plasma by Coagulation assay 1.05 [facility] Routine intensity oral anticoagulation I NR is typically 2.0-3.0. Target INR must be clinically individualized. ID Date Data Source [id number] 01/15/2021 10:16:25 AM [facility] Value Range Interpretation Code Description Data Kayley rce(s) Supporting Document(s) Amylase [Enzymatic activity/volume] in Serum or Plasma 77 U/L 28- 103 [facility] ID Date Data Source [id number] 01/15/2021 10:16:25 AM [facility] Value Range Interpretation Code Description Data Kayley rce(s) Supporting Document(s) Lipase [Enzymatic activity/volume] in Serum or Plasma 83 U/L 13-6 0 H [facility] ID Date Data Source [id number] 01/15/2021 10:16:25 AM [facility] Value Range Interpretation Code Description Data Kayley rce(s) Supporting Document(s) Albumin [Mass/volume] in Serum or Plasma by Bromocresol green (BCG) dye binding method 3.9 g/dL 3.5[facility]5.2 [facility] Bil[facility].total [Mass/volume] in Serum or Plasma 0.3 mg/dL <1.2 [facility] Calcium [Mass/volume] in Serum or Plasma 8.5 mg/dL 8.8-10.2 L [facility] Chloride [Moles/volume] in Serum or Plasma 99 mmol/L 98-107 [facility] Creatinine [Mass/volume] in Serum or Plasma 0.87 mg/dL 0.70-1.20 [facility] Glucose [Mass/volume] in Serum or Plasma 107 mg/dL 70-140 [facility] Alkaline phosphatase [Enzymatic activity/volume] in Serum or Plasma 107 U/L 40-129 [facility] Potassium [Moles/volume] in Serum or Plasma 4.5 mmol/L 3.4-5.1 [facility] Protein [Mass/volume] in Serum or Plasma 6.4 g/dL 6.4-8.3 [facility] Sodium [Moles/volume] in Serum or Plasma 137 mmol/L 136-145 [facility] Aspartate aminotransferase [Enzymatic activity/volume] in Serum or Plasma 33 U/L <40 [facility] Urea nitrogen [Mass/volume] in Serum or Plasma 8 mg/dL 8-23 [facility] Osmolality of Serum or Plasma by calculation 283 mosm/kg 275-300 [facility] Creatinine/Urea nitrogen [Mass Ratio] in Serum or Plasma 9 [facility] Bicarbonate [Moles/volume] in Serum 28 mmol/L 22-29 [facility] Alanine aminotransferase [Enzymatic activity/volume] in Seru m or Plasma 38 U/L <41 [facility] Anion gap 3 in Serum or Plasma 10 mmol/L 8-15 [facility] Glomerular filtration rate/1.73 sq M pre dicted among non-blacks [Volume Rate/Area] in Serum or Plasma by Creatinine-based formula (MDRD) 87 mL/min/1.73m2 >60 [facility] Glomerular filtration rate/1.73 sq M pre dicted among blacks [Volume Rate/Area] in Serum or Plasma by Creatinine-based formula (MDRD) >60 [facility] ID Date Data Source [id number] 01/15/2021 10:16:25 AM EDT [facility] Name Value Range Interpretation Code Description Data Kayley rce(s) Supporting Document(s) Triglyceride [Mass/volume] in Serum or Plasma 81 mg/dL <150 [facility] ID Date Data Source [id number] 01/15/2021 10:16:25 AM [facility] Value Range Interpretation Code Description Data Kayley rce(s) Supporting Document(s) Thyrotropin [Units/volume] in Serum or Plasma 0.750 u[IU]/mL 0.270-4. 200 [facility] ID Date Data Source [id number] 01/08/2021 05:22:53 PM EDT [facility] Name Value Range Interpretation Code Description Data Kayley rce(s) Supporting Document(s) Progress Note [facility] QQDGDw7ySbRRTvUo34/JONkcPNKbh3VxXEyqYOq1MTlaSSJcR1VwLJK3hS2tSJX0BFiNJdUlWpSsEFP6 lbm [file] AgICAgICAgICAgICAgICAgICAgICAgICAgICAgICAgICAgICAgICAgICAgICAgICAgICAgICAgICAgIC AgICAgICAgICAgICAgICAgICAgICAgICAgICAgDQogICAgICAgICAgICAgICAgICAgICAgICAgICAgIC AgICAgICAgICAgICAgICAgICAgICAgICAgICAgICAg ICAgICAgICAgICAgICAgICAgICAgICAgICAgICAgICAgICAgICAgDQogICAgICAgICAgICAgICAgICAg ICAgICAgICAgICAgICAgICAgICAgICAgICAgICAgICAgICAgICAgICAgICAgICAgICAgICAgICAgICAg ICAgICAgICAgICAgICAgICAgICAgDQogICAgICAgIC AgICAgICAgICAgICAgICAgICAgICAgICAgICAgICAgICAgICAgICAgICAgICAgICAgICAgICAgICAgIC AgICAgICAgICAgICAgICAgICAgICAgICAgICAgICAgDQogICAgICAgICAgICAgICAgICAgICAgICAgIC AgICAgICAgICAgICAgICAgICAgICAgICAgICAgICAg ICAgICAgICAgICAgICAgICAgICAgICAgICAgICAgICAgICAgICAgICAgDQogICAgICAgICAgICAgICAg ICAgICAgICAgICAgICAgICAgICAgICAgICAgICAgICAgICAgICAgICAgICAgICAgICAgICAgICAgICAg ICAgICAgICAgICAgICAgICAgICAgICAgDQogICAgIC AgICAgICAgICAgICAgICAgICAgICAgICAgICAgICAgICAgICAgICAgICAgICAgICAgICAgICAgICAgIC AgICAgICAgICAgICAgICAgICAgICAgICAgICAgICAgICAgDQogICAgICAgICAgICAgICAgICAgICAgIC AgICAgICAgICAgICAgICAgICAgICAgICAgICAgICAg ICAgICAgICAgICAgICAgICAgICAgICAgICAgICAgICAgICAgICAgICAgICAgDQogICAgICAgICAgICAg ICAgICAgICAgICAgICAgICAgICAgICAgICAgICAgICAgICAgICAgICAgICAgICAgICAgICAgICAgICAg ICAgICAgICAgICAgICAgICAgICAgICAgICAgDQogIC AgICAgICAgICAgICAgICAgICAgICAgICAgICAgICAgICAgICAgICAgICAgICAgICAgICAgICAgICAgIC ZnWCUuNUVsOGOkKGPfGVRqSGUbENEfLEAhOICgUPCmKDClKRDxYFx2M9dbVDDfGEFsJN5vECz8Vh4+DQ mMNtIjODG0vhYabK5TIX6eu5BePPegVSUht3OlYPd3 TD4GPDRmLScqBM2CQXqpoc1WQBLxBUUsgZBPs8hvZkBiCFM2HSIeAhglPW1YQUCkI9uqvzGfIBWoMVBK DBwoHUWYNFOdTRSzNoQlXpYnLPTlGKFaVVUYFYQ1PAUcBoHkYIgvWZ8Ht2NcjPX4CFn+Fd4JVK4fd2Vf RHqtTQQnLV2ckr7CVHfSIhImI4AdnhQ8UKP3ZOPkUk 0CYRJpHSKgeBQhDHUuWVJWNyQzY8BpmM41RKARBc0+UJiweuMoPpfBUlW3LMZvm3TaPAe2CL9VJEDwKK j6bPNvRRYoF4Qle6LxNf86QWHpYspdBiasi8zpyeAvTWOjvLxjWQfuAFItGPSxTCUcPeymThDjYINpPe ieAIAPHSrTPiRpR5Tkz4TtGlF8ZRCxAaMbKLyoQSLr EgV6MH64kAoaRB7MQQRcPYQrIQ61RAR3FSPsBp2VAo8JCuYrSP7pxy0RKlPsFF7asv2LPUzHPuLsY0L6 vPPkE6Vzcd89WM9MsSA7xTJaMS3EbH0cVY7Ve8TfNTYtHdJbMQCdVWScDRRjZDXhIuApZJ5VPJJgEmZr aZKtHNAqZpvgCSZlRcDvNqLbVN3ZYEKgWTQ3SS5UIC 6IRbguW2WENJdqfKzhPnSSDBM/MZNAHBTPEXecZWBnB32ZA3GMFZxNSlcyRGbFXfvhQu4wQSg+Pg0KZW 7aa4AbDQr5CXFwDV0apb0KBAqIQjKyI3P2mSYaV2B3FVphGl0HHJYkWZKnNmCwQQHIROxtFX7KKR1bkx Y4TM8EvYDzKWBnMPUyoBGlNGw9H22dhWKrJLpcRO3V ICA+Pallavi+Ff0PMDNgBQNuAQCoLuNdTYILGcNvN3VmC2VKe3BfA2IlUA54xTopodYfDJsoST0ATX7iWATc YWAIEJ1KgQTrqG8omvRuCMQiSZGYNsZlB40wrHJwFXDqVQT3QELyEh8GILEcP2PrvoKzzWlkhaSjLDDn GIONKH1VKMnnwrDgxNThqKjlJW36fHknMT8YZm4ZBg HvPJ6ohj7ZeEAlOz8VWGK6EU6IIYAyALPoNMFmTIX7KQCdVgNzSZvbVNPdKQBcVTM3CPDxCWDrOH6JOe EaKCZkCRN4HucpDTXmJIAcro4DALGaWQV9IKKdIKEfXWGqLJGqLDtuROVvNQCjRVH9QKKcFKJyYP2WDl OuYCTbTNT2PEhmELJaUMHhnn1CSTNbCGT2RBr3LVUb IOIpAHTdMDxeSRQeAPKhPdu6PJWlZAIxMY8POjYwLNFnARssVmNyEGSfPVSvar8GYPHdBZEeHWLvUBXj JSLrSBHmEQxlWCYtCKCdUGAvBDLkKFZpGC9ZMnHiJRSpDQZ5UNEeHXNxHZZyqz5IODLzZYNtNYTvYdVy TRIaMVOoNKjbALZaYZJ6TXNpZPMwBLCjGS0YGlGjGU GdFYi3WLIrCFGeSCFpaj7FAZMvWXLhAqr2OrWjFKLhFOEeOMrhDZNmGMT6LqroJRTkVVGzNR1HMrYmIW BfBOa4OCOfVBSuSWEyqd4ETEZlLBKiFOn6WiFpDBLvCCIgDNydISEdXOWaETYcODOvODZwDK4YHaNmBR SdHiCmHeCcCBCzSTPasj5KRYLsXVAdEOD1FNMkFXDs XBTsJHstMALrPYDkTwr4PBJxTRXsBM3RVvHnRMExHbQ3DhElGVNhSKRikn8FCRGtJRI6SMS9XLGiSGEk NFUtWQosRCGeTUG6XtY7BPOwURRdIN7ISbZkSTMeRFE5YtApKQPgNSMnjq9FEZFiOJU9ANChOZBwHTDn VFMpWNtrDWTzNCW5Xio0NNGpMHTbGR3SFoDwZYBtLS F5WYplTYJaWPFmct2UFTBoEAJ4HyaoCiGsSDQeVLOjYUwpPWQlYXV2AAp4TGJoUCSlFV4GJnRoWYHxPC G0NEKcOQDoGCFmqf6MWCSrMOY6JnK2IZCnDEGbTBEdEPkjVQTvHIOvIqzlEVUgTSKpZG2UPcIaWJHkGB Z0FCWnYVYeQGFpbn8TYKJzBWV1Jmp5RzUcRKIjILAt JYowFAOyOIEnCQqwFRVnXZAzWY4OIdAuPKJfQIN4VyGrNPIoCWOnzb8EJQZsBNU3DOfnBbZxDFJlJLCy ITiiMYOyOAJ3UWNkFYCtDDNpYH0HHkQhOLwcUFNFIhh1PMquD7p0HVQ9XW4FA7Moh1TsZMFuSUFRBIlt LG2gacXxCWZiCr4JU1dHPgt2UZU4LCAhGIApO9YpNR SaKcK0USp5AXxiDmV6BHY6OW0dXGzpHsA3JPJfZhS6MBL1MQLhWLA3XuI5VmE5DpHzSmxbQpGaHB2RKb 2WZkM4CGQ3zQQjTt3LNHAbMGJBEjDoYX3JPAb= ID Date Data Source [id number] 01/01/2021 01:03:24 PM EDT [facility] Name Value Range Interpretation Code Description Data Kayley rce(s) Supporting Document(s) Progress Note [facility] WMTWRd4oWgRYTlNy65/CYSmgWKRjq2JyHMpjWQr6WSypQGFiO5OrMAE0gY5wRGT0ALrXDeGmSoOjQLLt lbm IzQzmTTcYwTAJoYruEGeXeVNugNczhbKUqNX7HwKM7VNAeS40nXISdADQyH6AvTULhFPH+Em1FDZVriM TeZC1CHeoK6Y2lj0vEXa9vdQ1atmAAR2if4rUtKKvLpvxeuMVxhxFs57eizmFh52yY26H1/l64zsGB8J vj7eXaaA9FNOOpO5Qnvx1KsOWuLYk//isGvmtZlsj+ bH/1QyWuZ+XBiaF4BQfsa6J/skHkBmUFll/ckP5qy/u3GKeQrovDAOsR5L54tMkOqxRItwRG0dgXw0Y7 Tuarp+NnXn2G3vm7Zb35On+8EHYY+Slh5m9lxgg+L0nOdqop0YkDv+HG8obiDMbAyDN69U2ivOZq8dr5 aiFBBeIxc6rz31l8VNs+anlJMxVb7BwlE6GHZ1YHEG NxY5Z/znmPJgUveXDIx1WLfaeQBvkW0OrWow+Caleb/xBT6dyLr8F2iO8x0jqR8R52kVwdnPGfdnu1jjWg [file] patient assessment coordinator/keaj+AQ9nk7UG0NLHSEqgh5EXVh6/sNGmkLpazTnGutLw0yvEZCfSBkStjjLqXW+lbzOrlxhVPEtd [file] ieJTRzDiQmJM2BCy2KSgA9FGE0xGFuKv1FDXh9ZRLOYqNeJR3WIJv= ID Date Data Source [id number] 12/28/2020 06:28:37 PM EDT [facility] Name Value Range Interpretation Code Description Data Kayley rce(s) Supporting Document(s) Progress Note [facility] JQFAVb3yFsSVGuRu70/ZEHqzANJbd6OfKMsjBDh2HDrrADIqT7TvHIH5mC9wDGD1OHlSUpOlHoUhUAR5 lbm [file] nW+DPpHaALHD/+qy31WdZUOd+zoTKpa6/3XWFTY [file] dGE+DQogICAgICAgICAgICAgICAgICAgICAgICAgICAgICAgICAgICAgICAgICAgICAgICAgICAgICAg ICAgICAgICAgICAgICAgICAgICAgICAgICAgICAgICAgICAgICAgICAgICAgDQogICAgICAgICAgICAg ICAgICAgICAgICAgICAgICAgICAgICAgICAgICAgIC AgICAgICAgICAgICAgICAgICAgICAgICAgICAgICAgICAgICAgICAgICAgICAgICAgICAgICAgDQogIC AgICAgICAgICAgICAgICAgICAgICAgICAgICAgICAgICAgICAgICAgICAgICAgICAgICAgICAgICAgIC AgICAgICAgICAgICAgICAgICAgICAgICAgICAgICAg ICAgICAgDQogICAgICAgICAgICAgICAgICAgICAgICAgICAgICAgICAgICAgICAgICAgICAgICAgICAg ICAgICAgICAgICAgICAgICAgICAgICAgICAgICAgICAgICAgICAgICAgICAgICAgDQogICAgICAgICAg ICAgICAgICAgICAgICAgICAgICAgICAgICAgICAgIC AgICAgICAgICAgICAgICAgICAgICAgICAgICAgICAgICAgICAgICAgICAgICAgICAgICAgICAgICAgDQ ogICAgICAgICAgICAgICAgICAgICAgICAgICAgICAgICAgICAgICAgICAgICAgICAgICAgICAgICAgIC AgICAgICAgICAgICAgICAgICAgICAgICAgICAgICAg ICAgICAgICAgDQogICAgICAgICAgICAgICAgICAgICAgICAgICAgICAgICAgICAgICAgICAgICAgICAg ICAgICAgICAgICAgICAgICAgICAgICAgICAgICAgICAgICAgICAgICAgICAgICAgICAgDQogICAgICAg ICAgICAgICAgICAgICAgICAgICAgICAgICAgICAgIC AgICAgICAgICAgICAgICAgICAgICAgICAgICAgICAgICAgICAgICAgICAgICAgICAgICAgICAgICAgIC AgDQogICAgICAgICAgICAgICAgICAgICAgICAgICAgICAgICAgICAgICAgICAgICAgICAgICAgICAgIC AgICAgICAgICAgICAgICAgICAgICAgICAgICAgICAg ICAgICAgICAgICAgDQogICAgICAgICAgICAgICAgICAgICAgICAgICAgICAgICAgICAgICAgICAgICAg RADjKFXoVYSmOBRcWFFnSHRtAOFmLIUxDKSjFTHkUJRmVMUbGTCxQRReLDRxGLWhQJFaBJRkDSf7B5dv BJAiSDFpYU7lUKo4Mo7+CMiPInPiCRQ1buZwbG8UPZ 3fh4XpWAwzWWMip4PqAVd5WN2ULVHtHMviQB6MZThprk0IBYQrTCDzdWKEm0dxBaUfTSH3IZSaUttmKL 5VNDHlL8kyjqRgIJUjKTKLYDixEIBELHffUOCPZGCwQXUlOkClOgEpUFGsXKXaWVSNHHW4UCQmQcQuPY AwIFIgMjEgMCBSIDIzIDAgUiAyNSAwIFIgMjcgMCBS WT1YEmTiE0NqhZ03ICTeIZu+Gt2HXW9gl3ZuZUb3XPUnIX7uro7GWFjQUfAqV2XeqrB9HQL0WLXsPv4N DWZeKKErbHP8ChJdTNXWJxXhQ4TgeH50EQDQSf6+AQsjpmIhNxdQIiK0WFApe5WcLLv2LJ9QDZNoQOx7 iJQdLUPfT4Pjh3RqJk73YVLbXqegMklfc9wbayZeSX FgkLkjFMzdAWQcDPTiFVQiUVHkIfSbESLhPPviRPRPKCuFFeQjY5Bby8CwLxO2BLYhLkUmRGbnQKQySc G6GP24nYgoOQ4RNTBxEOKvVI41UVG2LIUuBo0EWm0JUoDnRR2hip8WCKmoHEPyBukLBfy4VCrqDR0UnX ZtY5ZtwMSvj4oYUmOnE6SJVEKkHJSkAk6VYAWuXvYf FUHzXBktHN5wMKXtPGJRuGtjvsF7MA8QPU9blaKdPW7JIpNvFz1jRp7MZmYzU8JnV6CuVIVsIEWEUCox WA7VTFpcXU1eHZ2Aa3NUpDFsrS0pzu3BNYDaXBGjYernky4WFianN1T8zBxhQSKqWDGwVZMNYHqgXN7F PLRiIWD9JTY6UTJnQSZZAaSgN88tZZ6YQ9Fyp21iKh D6CVHvDoJtTEpdXN58tTucrgAemEJwgHyfPS0EPo6+DQplbmRvYmoNCnhyZWYNCjAgNTgNCjAwMDAwMD OyGIZsGwO5CuHxPp5XXLSdGWDdHOMbEiIgETMzOEEmMQilVQGrDLg7IPjeECOeYHVpUN6BOpOeMUXsRZ W0ScYtZGNcUSMzkw5DWLNcUBMoDTI8YlUhJBQzJIBp ODidTCWyZQI6EqO3ANSaJQIsML9GHfDzBBUaOPT3KhSoAVMyJTBizk5PLYHoKHQzBBX0BbCnWYYvTBSn LFkxEQVnSPS7TecfHMYcYMRnRQ3YYjTaEFPkBUA6BFPpLQBdZDYexa1SSTAxRFRdZTugWHPzSHHeSRYw GMwoNNHwBWJcSak6QXHaTLXxDZ1ZKkYoNIRzGOH3SL XuWKAnXMZtmv2KODUbNDUzInN3XKArYEIoGHTxHWyjQGApIHI5ZUooSUQrOIDhLC0CZtKiLSIfLZfdLU ZlKTVxACVsfm2GIQOrLTHkAOKwPIZjEBOsKKAkMFdxSUXjYLWqQeA6DJDfVDVwNK7BArEyKEPmHqP3Xn FvBHZxTHXpeu7MKCUeURPpPes9KsAdGMBiIHOuQClv PBPpKICyVMf9MOXhTEAuIC2OYcNgQUEgJuI5ZFJmUKYjXHUkpj9AGMHuZLDeQxJ9HBKvOYKdNPJlCXsq VLBoSFIpPlxqLLYlVOGzDY9SNjTtBVQjQvH3VDtuUEQpWEBtvz4ZZDRhCWAwBcevHYXxDYCbDBLmJGlj LTFdLHQ4RVQ9SLWlRAWuUC3KKhQpSEKdXuU0WUFnPS GpQTXcrr0PWJJpTBUhRCNtSQLkXSBdSGBhDOlhVKLkHWI7VNszDXFkGYJvRN3ESrClGFJiMmJwKvpfGY EjCWSmfr3KKCThNBLxIpF4SMSeBAGsAGDcWLwuQOUkSIW3LYBpAMAiAVDyIR9ZPpLhKAAxRlo8PWQsHI EvIWEzhi6LUMYgETTkLtekOCXiKIVqEOTuVFviYAWg VDG6CBY2DORuJVJvMW4ZPbWcAYUvAlr1JWHdROPuCKQscv3CODUvJMX2IJlsWTHmYZTiEKRzALbpKDVy FHhoOeMoQIXkETQfUZ1TMqBxAQPtSwV1XjmsLLBkTCTyhp6MBTRrVAY4YOjcQERqPGOnLVKyBTzcQLMn XPppXJvxTBAdZYGuFZ9SGrLkXYBaGpPpTmSvRRAoNN Nqlg6GMJEpEQU9PzIhFUOlMFLpJIHlYVshDCPsLHe1UbL9IQNmUCSgVK4SBvYuRSLfKmt8INwhQTJbBO Bykc6KFMQiVUV9Rej7ZUAgOGLgAAZcFWgjLMGbFUh0OCL7EZWeXLRqGW9UTfZiLPRpRcfoVWDeTOYsWN Aebd6WLHBuLEH7DJA6LOOxGXXoXWMbCCyeAOLnAOb0 EFOfQCLsJFMiGC5MVoErKEFaLxq2ULIiXAWcLRNxde4HVWMkABT9GSX5YzWsFXSyVISqCOcnLGWbJKs4 SSXqUNDgELLmAH2DZaTtCIMjLEKuLtBrJYNfFSQnnp7VINFkJHA6NMjgLAZiNWFtLIIdCYtmRNTwONoj WQIrIJTlXFSyFK5XStKfAEXyUQPkXrMxRABbXWBdec 0KzQOfuSsnjy3VRTvNNs6IsHaxCIV6KZxwPw7jjEP8QzArPXHCRa3IucHjQJChZNAHVSrwJYIaXAbcCB j6XdY5MqYhNGOhBNHkFaCeCHU4W4O1IIY9IwH3XnO2IRIlPuP3INMyW8X7RySpV7GkJIM5DYGkEUm2Kd cyMzk+HG9eDDn+Vu2Nt2BevdY6ptWqHCu4SaNfTp6IPNUZL7QSKr== ID Date Data Source [id number] [facility]2020 [facility] Interpretation Code Description Data Kayley rce(s) Supporting Document(s) Osmolality of Urine 249 mosm/kg 300-1000 L [facility] ID Date Data Source [id number] 12/25/2020 01:46:11 PM EDT [facility] Value Range Interpretation Code Description Data Kayley rce(s) Supporting Document(s) Potassium [Moles/volume] in Urine 22.7 mmol/L [facility] ID Date Data Source [id number] 12/25/2020 01:46:11 PM [facility] Value Range Interpretation Code Description Data Kayley rce(s) Supporting Document(s) Sodium [Moles/volume] in Urine 35 mmol/L [facility] Confirmed ID Date Data Source [id number] 12/25/2020 01:46:11 [facility] Interpretation Code Description Data Kayley rce(s) Supporting Document(s) Chloride [Moles/volume] in Urine 43 mmol/L [facility] Confirmed ID Date Data Source [id number] 12/25/2020 09:20:44 AM [facility] Value Range Interpretation Code Description Data Kayley rce(s) Supporting Document(s) Leukocytes [#/volume] in Blood by Automated count 3.4 10*3/uL 4-10 L [facility] Erythrocytes [#/volume] in Blood by Automated count 3.53 10*6/uL 4.6- 6.1 L [facility] Hemoglobin [Mass/volume] in Blood 11.0 g/dL 13.5-18 L [facility] Hematocrit [Volume Fraction] of Blood by Automated count 31.4 % 4 1-53 L [facility] Erythrocyte mean corpuscular volume [Entitic volume] by Auto mated count 89.1 fL 80-96 [facility] Erythrocyte mean corpuscular hemoglobin [Entitic mass] by Automated count 31.2 pg 27-33 [facility] Erythrocyte mean corpuscular hemoglobin concentration [Mass/volume] by Automated count 35.0 g/dL 32.0-[facility] width [Ratio] by Automated count 13.8 % 11.5-14.5 [facility] Platelets [#/volume] in Blood by Automated count 246 10*3/uL 150-400 [facility] Differential cell count method - Blood [facility] Neutrophils/100 leukocytes in Blood by Automated count 61 % [facility] Lymphocytes/100 leukocytes in Blood by Automated count 19 % [facility] Monocytes/100 leukocytes in Blood by Automated count 15 % [facility] Eosinophils/100 leukocytes in Blood by Automated count 3 % [facility] Basophils/100 leukocytes in Blood by Automated count 2 % [facility] Neutrophils [#/volume] in Blood by Automated count 2.11 10*3/uL 1.8-7 .0 [facility] Lymphocytes [#/volume] in Blood by Automated count 0.65 10*3/uL 1.2-4 .0 L [facility] Monocytes [#/volume] in Blood by Automated count 0.51 10*3/uL 0-0.8 [facility] Eosinophils [#/volume] in Blood by Automated count 0.09 10*3/uL 0-0.5 [facility] Basophils [#/volume] in Blood by Automated count 0.07 10*3/uL 0-0.2 [facility] Nucleated erythrocytes/100 leukocytes [Ratio] in Blood by Automated count 0 /100{WBCs} 0-0 [facility] ID Date Data Source [id number] 12/25/2020 09:34:51 AM EDT [facility] Name Value Range Interpretation Code Description Data Kayley rce(s) Supporting Document(s) Prothrombin time (PT) 13.5 s 11.6-14.0 [facility] INR in Platelet poor plasma by Coagulation assay 1.07 [facility] Routine intensity oral anticoagulation I NR is typically 2.0-3.0. Target INR must be clinically individualized. ID Date Data Source [id number] 12/25/2020 09:45:59 AM [facility] Name Value Range Interpretation Code Description Data Kayley rce(s) Supporting Document(s) Amylase [Enzymatic activity/volume] in Serum or Plasma 75 U/L 28- 103 [facility] ID Date Data Source [id number] 12/25/2020 09:45:59 AM [facility] Name Value Range Interpretation Code Description Data Kayley rce(s) Supporting Document(s) Albumin [Mass/volume] in Serum or Plasma by Bromocresol green (BCG) dye binding method 4.5 g/dL 3.5-5.2 [facility] Bil[facility].total [Mass/volume] in Serum or Plasma 0.3 mg/dL <1.2 [facility] Calcium [Mass/volume] in Serum or Plasma 8.3 mg/dL 8.8-10.2 L [facility] Chloride [Moles/volume] in Serum or Plasma 89 mmol/L 98-107 L [facility] Creatinine [Mass/volume] in Serum or Plasma 0.73 mg/dL 0.70-1.20 [facility] Glucose [Mass/volume] in Serum or Plasma 117 mg/dL 70-140 [facility] Alkaline phosphatase [Enzymatic activity/volume] in Serum or Plasma 82 U/L 40-129 [facility] Potassium [Moles/volume] in Serum or Plasma 5.0 mmol/L 3.4-5.1 [facility] Protein [Mass/volume] in Serum or Plasma 6.9 g/dL 6.4-8.3 [facility] Sodium [Moles/volume] in Serum or Plasma 122 mmol/L 136-145 L [facility] Aspartate aminotransferase [Enzymatic activity/volume] in Serum or Plasma 34 U/L <40 [facility] Urea nitrogen [Mass/volume] in Serum or Plasma 10 mg/dL 8-23 [facility] Osmolality of Serum or Plasma by calculation 254 mosm/kg 275-300 L [facility] Creatinine/Urea nitrogen [Mass Ratio] in Serum or Plasma 14 [facility] Bicarbonate [Moles/volume] in Serum 24 mmol/L 22-29 [facility] Alanine aminotransferase [Enzymatic activity/volume] in Seru m or Plasma 23 U/L <41 [facility] Anion gap 3 in Serum or Plasma 9 mmol/L 8-15 [facility] Glomerular filtration rate/1.73 sq M pre dicted among non-blacks [Volume Rate/Area] in Serum or Plasma by Creatinine-based formula (MDRD) >6 0 [facility] Glomerular filtration rate/1.73 sq M pre dicted among blacks [Volume Rate/Area] in Serum or Plasma by Creatinine-based formula (MDRD) >60 [facility] ID Date Data Source [id number] 12/25/2020 02:03:30 PM EDT [facility] Name Value Range Interpretation Code Description Data Kayley rce(s) Supporting Document(s) Lipase [Enzymatic activity/volume] in Serum or Plasma 65 U/L 13-6 0 H [facility] ID Date Data Source [id number] 12/25/2020 03:41:51 PM [facility] Name Value Range Interpretation Code Description Data Kayley rce(s) Supporting Document(s) Thyrotropin [Units/volume] in Serum or Plasma 1.030 u[IU]/mL 0.270-4. 200 [facility] ID Date Data Source [id number] 12/16/2020 03:53:57 PM [facility] Name Value Range Interpretation Code Description Data Kayley rce(s) Supporting Document(s) Progress Note [facility] KEQWEz2zXxPWQzUh63/CMMnjCWOyq0XzRGncAZq0UWgwDKUbJ9NpADU1iI6kCBK0FHfWMaQfOjAzFLO8 [facility] [file] i/NM1ZVJTY4qeEttlUZkjv9fVATby15w1zdUeOmqaXVFSqM4wr8uZNG7VdlHpQBO3JAAQAyv1cED+татьяна [file] SViD9JgyeomFG/0YPfL8WbOBkmJ7Ek3IoWGr/b [file] BC6jSPdwDZdee7GalyV6cvH4aKkGjVfH+vp lab+uhD9ax [file] ICAgICAgICAgICAgICAgICAgICAgICAgICAgICAgICAgICAgICAgICAgICAgICAgICAgICAgICAgICAg ICAgICAgICAgICAgICAgICAgICAgICAgICAgICAgIC AgICAgDQogICAgICAgICAgICAgICAgICAgICAgICAgICAgICAgICAgICAgICAgICAgICAgICAgICAgIC AgICAgICAgICAgICAgICAgICAgICAgICAgICAgICAgICAgICAgICAgICAgICAgDQogICAgICAgICAgIC AgICAgICAgICAgICAgICAgICAgICAgICAgICAgICAg ICAgICAgICAgICAgICAgICAgICAgICAgICAgICAgICAgICAgICAgICAgICAgICAgICAgICAgICAgDQog ICAgICAgICAgICAgICAgICAgICAgICAgICAgICAgICAgICAgICAgICAgICAgICAgICAgICAgICAgICAg ICAgICAgICAgICAgICAgICAgICAgICAgICAgICAgIC AgICAgICAgDQogICAgICAgICAgICAgICAgICAgICAgICAgICAgICAgICAgICAgICAgICAgICAgICAgIC AgICAgICAgICAgICAgICAgICAgICAgICAgICAgICAgICAgICAgICAgICAgICAgICAgDQogICAgICAgIC AgICAgICAgICAgICAgICAgICAgICAgICAgICAgICAg ICAgICAgICAgICAgICAgICAgICAgICAgICAgICAgICAgICAgICAgICAgICAgICAgICAgICAgICAgICAg DQogICAgICAgICAgICAgICAgICAgICAgICAgICAgICAgICAgICAgICAgICAgICAgICAgICAgICAgICAg ICAgICAgICAgICAgICAgICAgICAgICAgICAgICAgIC AgICAgICAgICAgDQogICAgICAgICAgICAgICAgICAgICAgICAgICAgICAgICAgICAgICAgICAgICAgIC AgICAgICAgICAgICAgICAgICAgICAgICAgICAgICAgICAgICAgICAgICAgICAgICAgICAgDQogICAgIC AgICAgICAgICAgICAgICAgICAgICAgICAgICAgICAg ICAgICAgICAgICAgICAgICAgICAgICAgICAgICAgICAgICAgICAgICAgICAgICAgICAgICAgICAgICAg ICAgDQogICAgICAgICAgICAgICAgICAgICAgICAgICAgICAgICAgICAgICAgICAgICAgICAgICAgICAg ICAgICAgICAgICAgICAgICAgICAgICAgICAgICAgIC CmBGWoVFTbIFByMJOcOXn8D1mhSNZwHTBzIK3zHRv6Iw3+OXvPLfToYBJ0rrWarK9VQJ4hr0GqHOcmVD Eqv2SrEWx3XW3NAFAxGUglAG5HGZiqqf9PNMOsZCDvqISJj1ecOzTcNHU4MVYuFsllYK4GJBHyT7eimh BbIDUgMCBSIDcgMCBSIDkgMCBSIDExIDAgUiAxMyAw XLKoIYLyRJXZJVR4MSIfMcDiTTTeERInAiIhFBJBSQSqDPWcIwTmUATmDVKvEZ1NBVLfY616dsYrJTNV Cj4+HQncvyZoJvbZIoAgDGRkz2RlCGd4MG3NUCLfHommr1BqEOTzZGMKYIckUI1IDKW7XJF8EDIaQe2M DQIgI292utAgIO4VOh7QKuXdFX6eqe3DKFLqAGJwJq fRMmu6CZdlEF9MzKIsVHdUou5apxKfdaZTz4PwihHliZXPsORqt4HiYEBEELHspNXbDTSBJEOcoIVyBS 80IrYcMrTqBPr7XETcAC4rKEmnJE2KEEN3ZQksMUOhWSSyP5jVMiYpLOZrSnMehCrkAW2WNwVkQ5Bcuo DibNL2TuNdKZPCNk3+VUnxtvPtDjzHMoM7IDHhk5Rv FIa7FC6YWPJtUEnkBI9VWEEfmN6nDDvaOX5HSwJ0NMXqKJUXWyTlL03akLIhGVe7N8DxEmUqFUEzMxlw ZXMgPDwvTmFtZXMgWyBdDQogID4+ID4+DJlzXT4OZJcbudNiUIVvBi1MFSGbQKCiPD9eIYXcLGLsB5C6 cKcoXVNOShKpY9tnavwrPX9fSDVcI463xQtwamKuIP LhWNMlHf0LMLJcZIO1YSVqsZKmFQDbVAAPEOrtRH8TxLBpHMH6eG0bICclUDTpGNLiW3gETfCzhDcuCY 51bGwgbnVsbCBdDQo+Zg7LOO5mm8EbBSn0pkShMNydKNA4SQwkRPNrSYCcMJCiKHS8AQN9QYJLMdFkDL XiCTFkJTslWKKnXCWqsq7MEUMrFZE1UcKhGYRxWWOo AMWkTOarGSIjTUv6OqgoPKUzSFXqCM3UYrYiPIAaFEWkLZenMGZgLXOcru1UYFOxTDQdYHIcPMJlCYEi MVMbUWicYUTqODY9WOG2JPDoWMOeVM4OLjBaUOQyYJqkPBLkHZZtXNXdtz9RSATrFAGhNMUxRSXbBIPx HECwFFncKMDpKBJsDVa7ZGMdQYHqFD7AOnQgUPGlFN Z6XMCnKMUgAMGejd8YOEQyPYDgWav5OCVeYKQvNSSoPWluJWEeVQG5IDl8ASUzOCHoMT6ZCpZzPSUxKD UrNDizWSQtKLGwyx2RQURgHGAqZcC9NsSuDHVsBOHkCWzcIFTqRZG3NBM7NAXtFECuCU8XUrLkUARzID ruLbFjDJIhCKXeqo2CSTAjLRVxJWVwIiAxFUArZGLh HMpcUNTcWLNpZcU1RTMbQQLqGY4SYkInXXHgKkJ6TtRpOOLdEBUytn8WASKbWEPrHgkaPhQpNQWhDGUe PGuaSYCqPQH8QkS2IUPjFRQvZD3AOqQuAXXkMjG8JjGhHIRnIXGqch2JJEHqRWGiHLj1HDCvGJLsIKIn VOfqZKVnCXCpFMBtXSVgGNYzMZ0HXaOnTQYfQqN2Zg RnWFSzPZBfqs7TJNHjRGRsIqQ3UGIrUPHrLUAuTRxgOVAlCAF5EKXmEAHzFFRcDQ1KGhYmTJInXdVuBm zkRUJlKUPpyg7CIUXuNULuTZReVHJqXPFgLKBuFUpbOVIyYII6DEg5DBWlGPWiBR4CTjByTRQiBaV4TF GrQINvRWIrps3IGNUfJXKqUIw1VDDtUSFxKTEmDAqq TVUjLHC5KgI4VWHxMTHuIP9DAwJvVIOyGeocXqAvTROjFGUntz0WZPMaVMK7VxS1PZZgMMYvVMIxEAaz NATeMMJ7IpY1ATBoHJGgVA0NMpUdBLRaPqh2LSKiBCVeYUZiym0PYSJqDBH2FGBbZYFgHOZuUJNuKEth KNAwSWW8ViJ0ECCqRLYaML7OKxWgCWNrGeu2YGMnHX LnEZNepf9AQXXqQSE4JQD1NyLiHKBsMUVfXMvgVUQyGZu1WAK1PHYdOYSiEZ3PFyYnPZPxKeUyPtXgZR KcOMXrrx3LPIPwKBR2SRCgTnCnPRLsQXJqNNhgREPnNGk5YHJaUYNzXJWlWG3CSuDmSCUsYyI6TMXlER DrVTUoln0GWZQnROY0LvQtZJXoHDKnMKBvVFptKWPb EJs7CXg9VBVzVZHpEW9AWqEuJUEnZlgvKxFqBNKbOQTqod4VACEhDNP3PdFgKJCbYOTjLEHuORstHIZx JEk2JLs6SWJdZWKdKI0ITsXiEBIvLjp8BKKiSDSjCQQhbw9MXQJeTBT5NPG1ZRQlEMZjPVVbBIydRFHd IIp2RMQpVJTgEGHuNU7YVzYjFGUkAvb2DCUmFJLpLV Dcjb7LiVEcdXkisn2QJLoHCj7IjQymYSU4HUqcOk8gfOA7TLGyKCLTRi0FomZhPCEeONQYADsnTVLoLP NlSjXnIai1Iha8PTSkIVP0PZduNOMnDVAaMrqqKkF4FmP5TRK7Z8GaXxurXXsoEMDfMBJ9GsNpFmKjEO X1VSF2Vrn+PO6pDYu+Pv7Qy1MjxyG1dhKeGGi6NPuiXN0ARROBV5NXFp== ID Date Data Source [id number] 12/16/2020 08:44:47 AM EDT [facility] Name Value Range Interpretation Code Description Data Kayley rce(s) Supporting Document(s) Leukocytes [#/volume] in Blood by Automated count 4.5 10*3/uL 4-10 [facility] Erythrocytes [#/volume] in Blood by Automated count 3.79 10*6/uL 4.6- 6.1 L [facility] Hemoglobin [Mass/volume] in Blood 11.7 g/dL 13.5-18 L [facility] Hematocrit [Volume Fraction] of Blood by Automated count 34.4 % 4 1-53 L [facility] Erythrocyte mean corpuscular volume [Entitic volume] by Auto mated count 90.7 fL 80-96 [facility] Erythrocyte mean corpuscular hemoglobin [Entitic mass] by Automated count 30.8 pg 27-33 [facility] Erythrocyte mean corpuscular hemoglobin concentration [Mass/volume] by [facility] 34.0 g/[facility] width [Ratio] by Automated count 14.0 % 11.5-14.5 [facility] Platelets [#/volume] in Blood by Automated count 247 10*3/uL 150-400 [facility] Differential cell count method - Blood [facility] Neutrophils/100 leukocytes in Blood by Automated count 59 % [facility] Lymphocytes/100 leukocytes in Blood by Automated count 25 % [facility] Monocytes/100 leukocytes in Blood by Automated count 14 % [facility] Eosinophils/100 leukocytes in Blood by Automated count 1 % [facility] Basophils/100 leukocytes in Blood by Automated count 1 % [facility] Neutrophils [#/volume] in Blood by Automated count 2.62 10*3/uL 1.8-7 .0 [facility] Lymphocytes [#/volume] in Blood by Automated count 1.14 10*3/uL 1.2-4 .0 L [facility] Monocytes [#/volume] in Blood by Automated count 0.62 10*3/uL 0-0.8 [facility] Eosinophils [#/volume] in Blood by Automated count 0.06 10*3/uL 0-0.5 [facility] Basophils [#/volume] in Blood by Automated count 0.04 10*3/uL 0-0.2 [facility] Nucleated erythrocytes/100 leukocytes [Ratio] in Blood by Automated count 0 /100{WBCs} 0-0 [facility] ID Date Data Source [id number] 12/16/2020 09:14:34 AM [facility] Name Value Range Interpretation Code Description Data Kayley rce(s) Supporting Document(s) Prothrombin time (PT) 13.0 s 11.6-14.0 [facility] INR in Platelet poor plasma by Coagulation assay 1.02 [facility] Routine intensity oral anticoagulation I NR is typically 2.0-3.0. Target INR must be clinically individualized. ID Date Data Source [id number] 12/16/2020 09:17:56 AM [facility] Name Value Range Interpretation Code Description Data Kayley rce(s) Supporting Document(s) Albumin [Mass/volume] in Serum or Plasma by Bromocresol green (BCG) dye binding method 4.6 g/dL 3.5[facility]5.2 [facility] Bil[facility].total [Mass/volume] in Serum or Plasma 0.5 mg/dL <1.2 [facility] Calcium [Mass/volume] in Serum or Plasma 9.1 mg/dL 8.8-10.2 [facility] Chloride [Moles/volume] in Serum or Plasma 90 mmol/L 98-107 L [facility] Creatinine [Mass/volume] in Serum or Plasma 0.89 mg/dL 0.70-1.20 [facility] Glucose [Mass/volume] in Serum or Plasma 138 mg/dL 70-140 [facility] Alkaline phosphatase [Enzymatic activity/volume] in Serum or Plasma 80 U/L 40-129 [facility] Potassium [Moles/volume] in Serum or Plasma 5.0 mmol/L 3.4-5.1 [facility] Protein [Mass/volume] in Serum or Plasma 6.9 g/dL 6.4-8.3 [facility] Sodium [Moles/volume] in Serum or Plasma 126 mmol/L 136-145 L [facility] Aspartate aminotransferase [Enzymatic activity/volume] in Serum or Plasma 27 U/L <40 [facility] Urea nitrogen [Mass/volume] in Serum or Plasma 15 mg/dL 8-23 [facility] Osmolality of Serum or Plasma by calculation 264 mosm/kg 275-300 L [facility] Creatinine/Urea nitrogen [Mass Ratio] in Serum or Plasma 16 [facility] Bicarbonate [Moles/volume] in Serum 25 mmol/L 22-29 [facility] Alanine aminotransferase [Enzymatic activity/volume] in Seru m or Plasma 20 U/L <41 [facility] Anion gap 3 in Serum or Plasma 11 mmol/L 8-15 [facility] Glomerular filtration rate/1.73 sq M pre dicted among non-blacks [Volume Rate/Area] in Serum or Plasma by Creatinine-based formula (MDRD) 86 mL/min/1.73m2 >60 [facility] Glomerular filtration rate/1.73 sq M pre dicted among blacks [Volume Rate/Area] in Serum or Plasma by Creatinine-based formula (MDRD) >60 [facility] ID Date Data Source [id number] 12/09/2020 02:15:00 PM EDT [facility] ([facility], ) Name Value Range Interpretation Code Description Data Kayley rce(s) Supporting Document(s) Gram Stain Laboratory test result Normal (applies to non-n umeric results) [facility] ([facility], ) NO CELLS SEEN NO ORGANISMS SEEN Nasal And Sinus Culture Laboratory test result N ormal (applies to non-numeric results) [facility] ([facility], ) <content>FULL REPORT IN LAB NOTES (eCW a nd [facility]).</content>
<content>NO NORMAL TIGIST ISOLATED</content>
<content></content>
<content>ORGANISM 1: [...] 1 S</content>
<content></content> ID Date Data Source [id number] 12/09/2020 02:15:00 PM EDT [facility] Name Value Range Interpretation Code Description Data Kayley rce(s) Supporting Document(s) Bacteria identified in Nose by Aerobe culture Laboratory test re sult Normal (applies to non-numeric results) [facility] ([facility]) NO CELLS SEEN NO ORGANISMS SEEN ID Date Data Source [id number] 12/05/2020 09:21:09 AM EDT [facility] Name Value Range Interpretation Code Description Data Kayley rce(s) Supporting Document(s) Progress Note [facility] DPIOFs6qZfVQXwIk91/EKNnaBCGte2IoILwdAJc0LZyoHZEzS4OyOKV2uQ8rTPV7ASzFIwSrWwQoAVT6 lbm [file] AgICAgICAgICAgICAgICAgICAgICAgICAgICAgICAg XUJxWCHqGNSzRYLqYZNfBUBgVKBkOVFzCN0WTQGhQISyIMSwJRShVGAxSIXfCIZdRVStOKQfZCCbOMLo ICAgICAgICAgICAgICAgICAgICAgICAgICAgICAgICAgICAgICAgICAgICAgICAgICAgICAgICAgICAg QTVmJPOaNE5VVUOoVBLwMBPtTMArVIMhBKXjHBYyTQ AgICAgICAgICAgICAgICAgICAgICAgICAgICAgICAgICAgICAgICAgICAgICAgICAgICAgICAgICAgIC WiPPLvDFPeGUGnSQMoEQUxDO5XWCZkUYDjWFBaEZGrFKVmOWSpKGWaFSSpSHElQVHxASScFOVzICApEO AgICAgICAgICAgICAgICAgICAgICAgICAgICAgICAg ZVEaBVYjKVJhGPIiWSZoNAZwGQJmYYNxOKAyMT9KMEIqSYKnZARrNICkOCJyVCDsHAWkUSFnNTYrROQb ICAgICAgICAgICAgICAgICAgICAgICAgICAgICAgICAgICAgICAgICAgICAgICAgICAgICAgICAgICAg VDAxZLNyLXNnWF6XKREaFQCoGBXkYLUwUNOlBIQrYD AgICAgICAgICAgICAgICAgICAgICAgICAgICAgICAgICAgICAgICAgICAgICAgICAgICAgICAgICAgIC YpZAVzOGSxCKLvVUAvSLFtXDCkQB8OJOMjKNDuDXYzGXYtILRgFWSpWUWeGUVqJFLwJWTkROCfGSJcLT AgICAgICAgICAgICAgICAgICAgICAgICAgICAgICAg WKFcESDiDJStFGLtITRcUKQcAOQzHWGxZKWwNJImDQ8SNVFgGGDoNCNoGTDyTACjJLSjTFZzFNPvYWIy ICAgICAgICAgICAgICAgICAgICAgICAgICAgICAgICAgICAgICAgICAgICAgICAgICAgICAgICAgICAg OLJmVXSjAGBzIDFiWQ3GNJEfDNZzYMBtOZLcATIdYJ AgICAgICAgICAgICAgICAgICAgICAgICAgICAgICAgICAgICAgICAgICAgICAgICAgICAgICAgICAgIC SfPBEgTBTjNCOnTGJnTZEsRYPtMOYqLW3ARJGdYPCmKIJoGMZtLVCnQLEsXJQkNWQuVPKtNBKsGNDpDD AgICAgICAgICAgICAgICAgICAgICAgICAgICAgICAg NUInOZOaXNHuFZItCBRgMRSoFBXqARJuHMEbGZFxOHGpMH5TXP67eDGkv3O1WIHnMQ2gghr/Wx6TGCnx otUwqTWtTH9RBbOzVC6hjw5GDpPhBE5nkn6MDJbTOsMmJ6U0mZEvZUZlJNPDVfIoL52zJRufHn74GWwk JHWdUzGaCCz5Ac9MDhUfH4xeXAFbMjD2ZTMmMqQ1PM TbNsO2FTRuLyEeCKRiCNRgODRfWOCSKAQ5VNLrFqRlLWuiLN3Gg8FmtIB4CKl+Ta4TSW5iz1EaBEa3NP GrQX0mey0ASBfTFgWzJ3BpjzI1HFOmBQPaOy8FGDQhYBGhlGT9OCNdACOGEpNfT8VpyB23YAHVOp9+DQ beakKiJeeVCeJbRBCzi6InNBu4RF9HLCQnTKx4kTNg TWQvP1Foy9GxEe28RCSoKpmrTdcms9nhwqBqRWGweIlrQOmfUIVuVEUjMN1cYi0lDDYuZNO9TaAmFVNP BH5OYCMlDYFeiKTxDQKmNJJCDN8DMSkfVMD7OSLaqfYjoOIaKFjpKS6VCHElytVrJPHsNHNVHKe+Pg0K RZ0id0UbMYl7YqQwDD5kfe1VHDlIBxAmV2M4aEMkY8 S2DNmhUa8YYVQuRCQcBeynPVBACInqQI9BUS9dquS1WG8XkWFaUHIcEVTkpUAnGRk8E53frORkEQrmKT 0KICA+Pallavi+Jn9ELZMqGJQdZLCmCiDyQAENYpVhR2ErE9IFe1GbC9BmKP97qRkuzdYpPZnhYH9IMB7sTX EcMFJLYN7OoFKfeD1sygK0ODWcPQCMZsDqN91xfNKa HIFyQUW4MGZqCc6FDICnE2NjvjEmbOcktbXqBTPpYVDFET7SZYebhxDflVJxqXhoOH80uCkzLZ8WNi8P HwDzWA1mmf6VtSGtOo7BDZR4Ot1WXHZpWUCvVNVeRPO3HZBhZcZgZSmoTGFeMHJmMXR0KVDcYJMoZK9W WvYrWIDvDiD9ZKUqESTgNXSpgd9URBPcNTP5EfchRS FfGKJxIALvIXqjOICdGQIoYFY9DAUaLPTkYM0WJbMfCWGlKTZzHLvgYEBtYYMomm0TPIJpGYCnHBK1Vt QiCKCkTJPeCTspPOBhQFK0ILq4JCDzUNVjEC3MPaNdSBDnPIdhCKVvYZCqVPPuck0MNTDgZXEoHMZ1Ue ZuYWCxLVLhTFrvJTNpFKCkLaOcUUYeSDYsVF7UYhAp LGGmNUNiEGUxGTMtMDPrck0BKAGyLYRoXvI5HxFrZKPsLMHtGWqhGMNmUPJ7UXFkPHYgWCYuZA7GBaBk HHApEWpzHFkzDPNfIJIpro5MMOVsOUGcJDrrOYPbKUPbTUIfAAhiOVUrQQD7DAT9IARsNZCxKW0LMnJv OOGlYWp8HWQtHVUtHUOdzk7MWKUxPEEpVWG2GvKaIY XvMCSwROsbBDHcQFKzPlt3PNItDGPeVK9BRzDcKTTdYqUdGfFrGYAyMRKthk6NJKLxQFEtKXOaRpLsMB AsCWHcYCnkZYZyZTDpVvG6ZKYuOLLrPY0SUuTbASUmLJS1OJUgRVYwJWAhlw2MULLtHLE0FtRzBiXrER YcKUZiQNkiMFFwPZBaAtYtRIGtJUXsSH8BTjRgLIGg PURoNRDjRVLgVKJzjp1PSKSkMAI1GuLoPKYwLPKzRCOaESraBFUkUUW8HWvdCOHeMHFuND4GQfEfDJJf AUS2IxNuOFCqFBVgyt7QHEUgZYR3MOyeRVBnGYPkSGImGQukPGRmUYD5MzhvSNTyOCUbCI7SCmAeSSMn YcEgPYAjUZIwWIHutj5HVCEuMUB6MOXyNhNuZGRhHN BoWRaiJFLqUIGgEOUkHJIjUCAyQH0DAbEzVJNnZsB2XOhyRRCoNOBvbu9EMJNqSCA0JAV3ExHrFUTmOS IfQDavQYTwMOXsQcXuRVPfRXPxKA5EZmRaBBJhIoL4EAoaIIMbMGQiwa9IZNYoMWS2PhA1ZUUnQKQrCV JdGMsxUDOxXMLgUIO5GGIoXBHjHN3LXhAuYTZgHwS9 JUWmWEVsSYOksl6MPKHeOUO5BXI7QQQxTVGoONIyIIw3quVowBZxXPo3OQ7VJ3SaklJoTAWCHl2Nv177 SCEmPGDbMb8AD9ysNu1iAPTfNVOWYe4XAHy0GgKpPMV2AWYgUwp5R1WsAIu1OuE5AafgDKN1HlM7FIZ+ HIssNuUuKnrtJWX5CQyjNmUsYEF4Zkb2J5BtDGu3ZH i0JE8nQIFYAq7+BNnipEKuzDtqQSKIGdY7ZyA0VYubMXOTVu6F ID Date Data Source [id number] 12/04/2020 11:20:11 AM EDT [facility] Name Value Range Interpretation Code Description Data Kayley rce(s) Supporting Document(s) Progress Note [facility] LPDMUm6hFsGENhLo70/EGBcjKBKmk4IbFIbdSYw6WLjvNFQfV0SlYAJ8bU0qKHF0KZnAGkSqZdGiBYXs lbm [file] FuHDTjAbU8GDtgHtV+VY0vSAj+Ps9Kh0OtduX3zpGvESsaDOW8VT2RIKLRC3XJCi== ID Date Data Source [id number] 12/08/2020 10:14:00 AM EDT [facility] Hematopathology Report See Addendum Prem wNthao: OLSON, ED C. Number: [id number] Date: 12/04/2020 10:30Received Date: 12/04/2020 11:40Physician(s): ISAI BLAIR MBBS M ISAI COLLAZO MBBSSpecimen(s) ReceivedA: Bone Marrow Aspirate, LPIC; RECEIVED 1 [...] rendered thefinal diagnosis. Addendum 12/12/2020 Cytogenetics report [id number] shows that chromosome analysis revealed anormal male [...] Signed Out12/05/2020 InterpretationPERIPHERAL BLOOD: CBC performed at [facility] ([id number]),[address] [place] [address] on 12/04/20.WBC 4.4 K/uLRBC *3.95 M/uLHgb *12.3 [...] % Neutrophils 0.5 % Eosinophils 1.5 % Srbepmvps64.0 % Lymphocytes 8.0 % Monocytes --------100.0 % Qualitative leukocytic changes: Some large granular lymphocytes arenoted. BONE MARROW ASPIRATE: Cellularity appears normal as judged by particles on aspirate films. Differential Count (500 cells):36.8 % Erythroid Precursors 0.6 % Blasts 2.2 % Promyelocytes 7.2 % N. Okrqkxhtdh58.8 % N. Metamyelocytes and Band Forms21.0 % Zachary trophils 2.8 % Eosinophils and Precursors 0.2 % Basophils and Precursors 4.6 % Lymphocytes 0.4 % Monocytes 1.4 % Plasma Cells --------100.0 % Megakaryocytes appear normal with normal morphology.Erythroid maturation appears normoblastic.Myeloid maturation appears cyber defense incident responder and complete.Macrophages are unremarkable. MARROW BIOPSY: Biopsy [...] Status: Signed Out12/05/2020 InterpretationLymphoid Panel: [place] HP21 [id number] following markers were assayed: CD45 (gate), CD2, CD3, CD4, CD5, CD7,CD8, CD10, CD19, CD20,CD33, CD34, CD38, CD56, CD57, CD64, CD117, CD123, HLA- DR, [place], andLambda.# events: 26642Dhbfzukos: 99%Flow Cytometry Differential (CD45/SSC)Lymphocyte Mcfarlan: 13%CD45 dim Mcfarlan: 1%Monocyte Mcfarlan: 1%Granulocyte Mcfarlan: 75%Nucleated/Erythroid Mcfarlan: 6%The lymphocyte gate showsB-cells (CD19): 3%T-cells (CD3): 78%NK-cells (CD3-/CD56+): 17%[place]/Lambda Ratio: 2.5CD4/CD8 Ratio: 2.0Results: (expressed as % of lymphocyte gate)T-cell Markers: CD2 = 87, CD3 = 78, CD3/CD4 = 46, CD3/CD8 = 22, CD5 = 78,CD7 = 90, CD3/57 = 20B-cell markers: [place] = 2, Lambda = 1, CD19 = 3, CD20 = 7, CD19/10 = 1,CD19/CD5 = 0,CD38/CD20 = 5Light chain as % of B-Cells: CD19/[place] = 53, CD19/Lambda = 20CD19/CD5/[place] = 1, CD19/CD5/Lambda = 0CD19/CD10/[place] = 9, CD19/CD10/Lambda = 4NK cell Markers: CD56 = 29, CD57 = 29Other Markers: CD10 = 1, CD38 = 72Results: (expressed as % of CD45 dim gate)T-cell Markers: CD2 = 1, CD3 = 1, CD3/CD4 = 1, CD3/CD8 = 0, CD5 = 0, CD7 =4, CD3/57 = 0B-cell markers: [place] = 1, Lambda = 0, CD19 = 16, CD20 = 4, CD19/10 = 14,CD19/CD5 = 0,CD38/CD20 = 4Light chain as % of B-Cells: CD19/[place] = 3, CD19/Lambda = 3CD19/CD10/[place] = 0, CD19/CD10/Lambda = 0NK cell Markers: [...] were developed and theirperformance characteristics determined by [facility] Pathology department.They have not been cleared or approved by the US Food and DrugAdministration. The FDA has determined that such clearance or approval isnot necessary. Name Value Range Interpretation Code Description Data Kayley rce(s) Supporting Document(s) ID Date Data Source [id number] 12/04/2020 10:29:12 AM [facility] Name Value Range Interpretation Code Description Data Kayley rce(s) Supporting Document(s) Leukocytes [#/volume] in Blood by Automated count 4.4 10*3/uL 4-10 [facility] Erythrocytes [#/volume] in Blood by Automated count 3.95 10*6/uL 4.6- 6.1 L [facility] Hemoglobin [Mass/volume] in Blood 12.3 g/dL 13.5-18 L [facility] Hematocrit [Volume Fraction] of Blood by Automated count 35.4 % 4 1-53 L [facility] Erythrocyte mean corpuscular volume [Entitic volume] by Auto mated count 89.6 fL 80-96 [facility] Erythrocyte mean corpuscular hemoglobin [Entitic mass] by Automated count 31.1 pg 27-33 [facility] Erythrocyte mean corpuscular hemoglobin concentration [Mass/volume] by Automated count 34.7 g/dL 32.0-36.0 [facility] distribution width [Ratio] by Automated count 14.1 % 11.5-14.5 [facility] Platelets [#/volume] in Blood by Automated count 258 10*3/uL 150-400 [facility] Differential cell count method - Blood [facility] Neutrophils/100 leukocytes in Blood by Automated count 65 % [facility] Lymphocytes/100 leukocytes in Blood by Automated count 20 % [facility] Monocytes/100 leukocytes in Blood by Automated count 13 % [facility] Eosinophils/100 leukocytes in Blood by Automated count 1 % [facility] Basophils/100 leukocytes in Blood by Automated count 1 % [facility] Neutrophils [#/volume] in Blood by Automated count 2.89 10*3/uL 1.8-7 .0 [facility] Lymphocytes [#/volume] in Blood by Automated count 0.90 10*3/uL 1.2-4 .0 L [facility] Monocytes [#/volume] in Blood by Automated count 0.58 10*3/uL 0-0.8 [facility] Eosinophils [#/volume] in Blood by Automated count 0.03 10*3/uL 0-0.5 [facility] Basophils [#/volume] in Blood by Automated count 0.03 10*3/uL 0-0.2 [facility] Nucleated erythrocytes/100 leukocytes [Ratio] in Blood by Automated count 0 /100{WBCs} 0-0 [facility] ID Date Data Source [id number] 12/04/2020 11:04:15 AM EDT [facility] Name Value Range Interpretation Code Description Data Kayley rce(s) Supporting Document(s) Albumin [Mass/volume] in Serum or Plasma by Bromocresol green (BCG) dye binding method 4.7 g/dL 3.5-5.2 [facility] Bilirubin.total [Mass/volume] in Serum or Plasma 0.5 mg/dL <1.2 [facility] Calcium [Mass/volume] in Serum or Plasma 9.2 mg/dL 8.8-10.2 [facility] Chloride [Moles/volume] in Serum or Plasma 93 mmol/L 98-107 L [facility] Creatinine [Mass/volume] in Serum or Plasma 0.86 mg/dL 0.70-1.20 [facility] Glucose [Mass/volume] in Serum or Plasma 139 mg/dL 70-140 [facility] Alkaline phosphatase [Enzymatic activity/volume] in Serum or Plasma 80 U/L 40-129 [facility] Potassium [Moles/volume] in Serum or Plasma 4.7 mmol/L 3.4-5.1 [facility] Protein [Mass/volume] in Serum or Plasma 7.4 g/dL 6.4-8.3 [facility] Sodium [Moles/volume] in Serum or Plasma 130 mmol/L 136-145 L [facility] Aspartate aminotransferase [Enzymatic activity/volume] in Serum or Plasma 30 U/L <40 [facility] Urea nitrogen [Mass/volume] in Serum or Plasma 14 mg/dL 8-23 [facility] Osmolality of Serum or Plasma by calculation 273 mosm/kg 275-300 L [facility] Creatinine/Urea nitrogen [Mass Ratio] in Serum or Plasma 16 [facility] Bicarbonate [Moles/volume] in Serum 26 mmol/L 22-29 [facility] Alanine aminotransferase [Enzymatic activity/volume] in Seru m or Plasma 25 U/L <41 [facility] Anion gap 3 in Serum or Plasma 11 mmol/L 8-15 [facility] Glomerular filtration rate/1.73 sq M pre dicted among non-blacks [Volume Rate/Area] in Serum or Plasma by Creatinine-based formula (MDRD) 87 mL/min/1.73m2 >60 [facility] Glomerular filtration rate/1.73 sq M pre dicted among blacks [Volume Rate/Area] in Serum or Plasma by Creatinine-based formula (MDRD) >60 [facility] ID Date Data Source [id number] 12/04[facility]2020 11:04:[facility] Name Value Range Interpretation Code Description Data Kayley rce(s) Supporting Document(s) Urate [Mass/volume] in Serum or Plasma 4.6 mg/dl 3.4-7.0 [facility] ID Date Data Source [id number] 12/04/2020 12:09:55 PM [facility] Name Value Range Interpretation Code Description Data Kayley rce(s) Supporting Document(s) Lactate dehydrogenase [Enzymatic activit y/volume] in Serum or Plasma by Lactate to pyruvate reaction 222 U/L 122-225 [facility] ID Date Data Source [id number] 12/09/2020 09:06:04 PM [facility] Name Value Range Interpretation Code Description Data Kayley rce(s) Supporting Document(s) Tien Ryan virus DNA [#/volume] (viral load) in Serum or Plasma by Probe and target amplification method 148 copies/mL [facility] (NOTE)The quantitative range of this ass ay is 100 to 1 million copies/mL.This test was developed and its performance characteristicsdetermined by [employer]. It has not been cleared or approved by theFood and Drug Administration. Tien Ryan virus DNA [Log #/volume] (v iral load) in Unspecified specimen by Probe and target amplification method 2.170 log10 copy/mL [facility] (NOTE)Performed At: [facility] [id number] [place], [place] [id number] Araujo MD Ph:[phone] ID Date Data Source [id number] 12/04/2020 12:30:46 PM [facility] Name Value Range Interpretation Code Description Data Kayley rce(s) Supporting Document(s) Hepatitis A virus IgM Ab [Presence] in Serum or Plasma by Im munoassay Non Reactive [facility] No acute infection, susceptible to infec tion. Hepatitis B virus core IgM Ab [Presence] in Serum or Plasma by Immunoassay Non Reactive [facility] IgM antibodies to HBc were not detected, does not exclude the possibility of exposure to HBV. Hepatitis C virus Ab [Presence] in Serum or Plasma by Immuno assay Non Reactive [facility] No serological evidence of active infect ion. If recent exposure is suspected, test for HCV RNA. Hepatitis B virus surface Ag [Presence] in Serum or Plasma b y Immunoassay Non Reactive [facility] No active or previous infection. Suscept ible to infection. ID Date Data Source [id number] 12/09/2020 04:04:00 PM EDT [facility] Molecular Diagnostics ReportName: ED BROWNMRN: [id number] Number: [id number] Date: 12/04/2020 00:00Received Date: 12/05/2020 14:31Physician(s): ISAI BLAIR MBBS MADHIRA, BHASKARA, MBBSCopy To:FIDE VU MDSpecimen(s) ReceivedA: Bone Marrow - T-cell - [id number] OF STUDY: T-cell Receptor Gamma Chain Gene - PCR AssaySPECIMEN TYPE: Bone Marrow (#[id number])RESULTS: Positive Family I & III / J [...] rearranged T-cell receptor Gamma Chain gene (van Dongen et al. Jublares45:6801-7579, 2003). A positive result is expected when [...] validated and authorized for clinical useby the [facility] ([facility] EMA).rw/jsElectronically Signed By Ez Mejia M.D. Attending Pathologist 12/09/2020 16:04:31 Name Value Range Interpretation Code Description Data Kayley rce(s) Supporting Document(s) ID Date Data Source [id number] 12/11/2020 05:55:00 PM [facility] Cytogenetics ReportName: DELBERT OLSONMRN: [id number] Number: [id number] Date: 12/04/2020 00:00Received Date: 12/04/2020 11:54Physician(s): ISAI BLAIR MBBS MADHIRA, BHASKARA, MBBSSpecimemarylu(s) ReceivedA: Bone Marrow - Karyotype analysis and FISHClinical Isuvqve85-esog-ltl patient with NK T-cell lymphoma.TEST REQUESTED/PERFORMED: Chromosome analysis and fluorescence in situhybridization (FISH) InterpretationChromosome analysis revealed a normal male chromosome complement in allcells analyzed. As no chromosomal abnormalities were detected, the FISHstudy was canceled by Dr. Suresh Vu. Please correlate with the concurrentHematopathology report, [id number]. Electronically Signed By Josr Manley, PhD Attending Pathologist 12/11/2020 17:55:36Results and ISCN (2016) NomenclatureChromosome Qhfdfkzh37,XY[20] DescriptionA normal male chromosome complement was observed [...] rce(s) Supporting Document(s) ID Date Data Source [id number] 11/11/2020 11:14:00 AM EDT [facility] Name Value Range Interpretation Code Description Data Kayley rce(s) Supporting Document(s) Bacteria identified in Nose by Aerobe culture Laboratory test re sult Normal (applies to non-numeric results) [facility] ([facility]) FULL REPORT IN LAB NOTES (eCW and [facility] ). 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 Please see complete report from [facility] hematopathology department [id number], scanned in EMR under pathology module. 11/20/20201835 Addendum Signed____ Daniel La MD 11/20/20201840 FINAL DIAGNOSIS Left nasal [...] the case will be sent to [facility] hematopathology department for consultation and further work up, an addendum with result of consultation and possible lymphoma work up will follow. See note. Note: Immunostains for CD20 and CD3 were performed, and the atypical cells appear to stain with CD20(B-cell marker) rather than CD3(T-cell marker). Comment: Presence of fungal hyphae and concern for malignancy/lymphoma, was called to ENTDr. Guzman. 11/14/2020925 CLINICAL DIAGNOSIS Mucosal biopsy 11/12/20201437 GROSS DIAGNOSIS Received in formalin labeled "Ed Olson and designated left nasal mucosa" is a 0.9 x 0.6 x 0.2 cm. portion of pale marr soft tissue. Sectioned all in one. - 11/12/20201437 Signed Daniel La MD 11/14/2020925 ID Date Data Source [id number] 11/11/2020 10:00:00 AM EDT [facility] ([facility], ) Name Value Range Interpretation Code Description Data Kayley rce(s) Supporting Document(s) Surgical pathology study Laboratory test result [facility] FINAL DIAGNOSIS Left nasal mucosa, biopsy: Collections [...] the case will be sent to [facility] hematopathology department for consultation and further work up, an addendum with result of consultation and lymphoma work up will follow. See note. Note: Immunostains for CD20 and CD3 were performed, and the atypical cells appear to stain with CD20(B-cell marker) rather than CD3(T-cell marker). Comment: Presence of fungal hyphae and concern for malignancy/lymphoma, was called to ENTDr. Guzman. 11/14/2020908 CLINICAL DIAGNOSIS Mucosal biopsy 11/12/20201437 GROSS DIAGNOSIS Received in formalin labeled "Ed Olson and designated left nasal mucosa" is a 0.9 x 0.6 x 0.2 cm. portion of pale marr soft tissue. Sectioned all in one. - 11/12/20201437 Signed Daniel La MD 11/14/2020908 ID Date Data Source [id number] 11/20/2020 04:47:00 PM EDT [facility] Hematopathology Report See Addendum Prem Briggs: ED OLSONMRN: [id number] Number: [id number] Date: 11/11/2020 00:00Received Date: 11/14/2020 12:54Physician(s): DANIEL LA MD HAGHIR, SHAHANDEH F,MDCopy To:[facility]imen[facility]s) ReceivedA: Slides received for consultation, KB; RECEIVED 4 SLIDES AND 1 BLOCK OFLEFT NASAL MUCOSA BIOPSY LABELED [id number] [facility] DiagnosisA. Left nose, core biopsy: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, nasal typeSsavannahnellthanh Michel M.D.;Resident PathologistElectronically Signed By Nesha Pedraza MD AttendingPathologist 11/20/2020 16:47:04The attending pathologist named above attests that he/she has personallyreviewed the relevant preparation(s) for the specimen(s) and rendered thefinal diagnosis. Addendum 12/17/2020 T-cell PCR is negative for clonal T cells ([id number]). The diagnosisremains unchanged. Addendum Electronically Signed By: [...] positive T cells are also present. CD20 racehl rare Bcells. ProceduresThis report may include one or more immunohistochemical stain/fluorochromeconjugated monoclonal antibody results that use analyte specific reagents.All positive and negative controls have been reviewed by the attendingpathologist and are satisfactory. The tests were developed and theirperformance characteristics determined by [facility] Pathology department.They have not been cleared or approved by the US Food and DrugAdministration. The FDA has determined that such clearance or approval isnot necessary. Name Value Range Interpretation Code Description Data Kayley rce(s) Supporting Document(s) ID Date Data Source [id number] 12/16/2020 03:31:00 PM [facility] Molecular Diagnostics ReportName: ED BROWNMRN: [id number] Number: [id number] Date: 11/11/2020 00:00Received Date: 12/11/2020 13:22Physician(s): DANIEL LA,DANIEL GREER,MDCopy To:JESSICA FUENTES MDSpecimen(s) ReceivedA: Formalin Fixed Tissue - Left Nasal Mucosa Biopsy - T-cell - [id number] of Study: T-cell Receptor Gamma Chain PCR Assay SPECIMEN TYPE: Formalin Fixed Tissue - left nasal mucosa biopsy(#[id number]), Block # [id number]: Negative Family I & III / J [...] Gamma Chaingene (van Dongen et al. Leukemia 17:5862-1565, 2003). A quality controlamplification showed DNA of [...] and authorized for clinical use by the [facility]of Health ([facility]).rw/jsElectronically Signed By Ez Mejia M.D. Attending Pathologist 12/16/2020 15:31:09 Name Value Range Interpretation Code Description Data Kalyey rce(s) Supporting Document(s) ID Date Data Source [id number] 09/22/2020 02:14:00 PM EDT [facility] ([facility], ) Name Value Range Interpretation Code Description Data Kayley rce(s) Supporting Document(s) Bacteria identified in Nose by Aerobe culture Laboratory test re sult Normal (applies to non-numeric results) [facility] ([facility], ) <content>FULL REPORT IN LAB [...] FOR ESBL</content>
<content></content> ID Date Data Source [id number] 09/16/2020 08:19:49 AM EDT [facility] Name Value Range Interpretation Code Description Data Kayley rce(s) Supporting Document(s) &PDF [facility] VWMDHo7hPwHAQoWf00/OYEzxWTSwe2ItHKtlQKu6NSuwDVEgU1BgjCkfBMrTN8oOFlVfC8EJBRkTZmXT vci [file] AgICAgICAgICAgICAgICAgICAgICAgICAgICAgICAgICAgICAgICAgICAgICAgICAgICAgICAgICAgIC AgICAgICAgICANCiAgICAgICAgICAgICAgICAgICAg ICAgICAgICAgICAgICAgICAgICAgICAgICAgICAgICAgICAgICAgICAgICAgICAgICAgICAgICAgICAg ICAgICAgICAgICAgICAgICAgICANCiAgICAgICAgICAgICAgICAgICAgICAgICAgICAgICAgICAgICAg ICAgICAgICAgICAgICAgICAgICAgICAgICAgICAgIC AgICAgICAgICAgICAgICAgICAgICAgICAgICAgICANCiAgICAgICAgICAgICAgICAgICAgICAgICAgIC AgICAgICAgICAgICAgICAgICAgICAgICAgICAgICAgICAgICAgICAgICAgICAgICAgICAgICAgICAgIC AgICAgICAgICAgICANCiAgICAgICAgICAgICAgICAg ICAgICAgICAgICAgICAgICAgICAgICAgICAgICAgICAgICAgICAgICAgICAgICAgICAgICAgICAgICAg ICAgICAgICAgICAgICAgICAgICAgICANCiAgICAgICAgICAgICAgICAgICAgICAgICAgICAgICAgICAg ICAgICAgICAgICAgICAgICAgICAgICAgICAgICAgIC AgICAgICAgICAgICAgICAgICAgICAgICAgICAgICAgICANCiAgICAgICAgICAgICAgICAgICAgICAgIC AgICAgICAgICAgICAgICAgICAgICAgICAgICAgICAgICAgICAgICAgICAgICAgICAgICAgICAgICAgIC AgICAgICAgICAgICAgICANCiAgICAgICAgICAgICAg ICAgICAgICAgICAgICAgICAgICAgICAgICAgICAgICAgICAgICAgICAgICAgICAgICAgICAgICAgICAg ICAgICAgICAgICAgICAgICAgICAgICAgICANCiAgICAgICAgICAgICAgICAgICAgICAgICAgICAgICAg ICAgICAgICAgICAgICAgICAgICAgICAgICAgICAgIC AgICAgICAgICAgICAgICAgICAgICAgICAgICAgICAgICAgICANCiAgICAgICAgICAgICAgICAgICAgIC AgICAgICAgICAgICAgICAgICAgICAgICAgICAgICAgICAgICAgICAgICAgICAgICAgICAgICAgICAgIC AgICAgICAgICAgICAgICAgICANCjw/sOAvB6cbyDAr rlA0C7bePg1DTb9NQF4pt5LwJVOqEFgkgoGiVcuJXiZeFHPnRrqMFsu3CXicGV2PmAZvM5InD4HePGnx AQ2KBGPdIABxuMIeRNFaHIZrOfB1STPsDKozIN8KjLAwAUmuMQDeVVCnSeXkPKFlXK8UNKUuD670ywZs Xc2ZAe2FQgTyGZ6ggh2USnphVSUnJekPAnk8DFmbRZ 2CkUHtQ5IifCDmi2jLNkAvJ7OEHLV3WRSeSr4WDOUcLaXwFQAqKDqnQZ8tYFOhQJAHfSduzvR1VB3CZO 3gppYpRM1LAxCzTu1oNm0LPiEcU6StX9DxFYXeZQTVVTjoTF4BEPUfPFW5KVMtKaQeLWFBPrAjQ03hAQ 8NT6Zfn15nQyN8JPPjQqZjATbpWO89rHfomzCniNVf pHjjQJ5ISv3+PLyvqeLjItsKPpjcZHXUOvIbEolXZiQqQNFfPIApTFAyJqN4ReXpXh0OCCDrOAWoVRYm OtMtTGHpANTnDSgdXMUiPUK0BNSsWPCfTTAsWS9XGuJiDPYmCGW6XUmwKMOwPKTzmx6ZGBOtNYDuHJJ5 KwNnHLYzCSQgCZoxIBJoEVNdZMgcMXAkTEWnFY2AZz KrDOSdGHYeGqFqFIOoPILzri8MFSBzULPfAanmRjYzUKSdUAZcPOzzQMWiFFS4EEU6TIUuQNCtWC6IAj ZmLWUzHTg0CaCbYTNaPQEmeg5TFFUwFAEmJBI2HGPfTBEwPVZpAPixBFZzBNV9RaWcAWUrGVEnYC3DWj MbEYOlJQPiIMHjWNNwOEYpce1SSEWgCREnPGBmAiLp GFMhLPIaNSfnENWaHCYnErZgZUEuTRGdAZ6SWlXhPBPcOSX3HStkIWDvDVDsul6NMFYpSSExORx0YXRm AOFxVVThPWxwXBYqKLLdCDY4OQDlUVNpKE4YRmBjNSRxLCQsEEPvPMGoGOIohn6GROPkXQUdGzKrMWFf LUPmIQOeEZkeIJAvIVStBptpBLJjRHGuTJ0HFcUwIH HvFPZ5LSbtEBKvELJhvv8YBNDzCVCfWJAoIZRlQKIrWLHbXEwdNBUuZJG2LoI8HLHxQESgDC2FOtBcUM FlGEF5BVQqSYZoOLWspe6JZAAkJXRsMZe1LvShGTNkATDrIJjrXKYkKHH1FBWzYGJtPGCrEX9YZvWgHI HrSAP2DYwuRMMaHQAgnq7DQGMoLSGnKzMxWmDrILGd GMYzPIj4ndHjwBBcDXg8PQ1KS3OaauLsYihQBc5Sa590KDI9ILYrDo5EM1bhDn5sZLFsENLTUw4OCEj3 T1U4RFC6LYHsMFZpXiL4IdN5FxQ0Kpt6SYZmUmAxLhC+FKkaHzLrNvv6EuQ8VpA7DIKpRTqdHKg4KRvy E0SkZPXfYZ0sMOMJCe0+BYemzUVfhFzcNTRGPrR4JlerKEzoSJEGUl9P ID Date Data Source [id number] 07/18/2020 08:37:55 PM EDT [facility] Name Value Range Interpretation Code Description Data Kayley rce(s) Supporting Document(s) NT PRO BNP 181 pg/mL (0-125) H [facility] ID Date Data Source [id number] 07/18/2020 08:37:55 PM EDT [facility] Name Value Range Interpretation Code Description Data Kayley rce(s) Supporting Document(s) SODIUM 138 mmol/L (136-145) [facility] POTASSIUM 4.6 mmol/L (3.6-5.2) [facility] CHLORIDE 100 mmol/L (100-108) [facility] CO2 27 mmol/L (22-31) [facility] ANION GAP 11 mmol/L (7-16) [facility] UREA NITROGEN 12 mg/dL (7-24) [facility] CREATININE 0.82 mg/dL (0.80-1.30) [facility] BUN/CREAT RATIO 14.6 RATIO (10.0-20.0) [facility] GLUCOSE 101 mg/dL (70-99) H [facility] CALCIUM 9.2 mg/dL (8.4-10.2) [facility] GFR >60 ml/min/1.73m2 (>59) [facility] GFR ( AMER) >60 ml/min/1.73m2 (>59) [facility] GFR INTERPRETATION [facility] --NORMAL KIDNEY FUNCTION OR MILD DISEASE - GFR >OR= 60CHRONIC KIDNEY DISEASE - GFR 15 - 59RENAL FAILURE - GFR <15 Est. GFR calculation based on the MDRDstudy equation, which assumes a steadystate for creatinine. Est. GFR should notbe used for medication dosing. ID Date Data Source [id number] 07/18/2020 08:26:03 PM EDT [facility] Name Value Range Interpretation Code Description Data Kayley rce(s) Supporting Document(s) WBC 6.1 10*3/uL (4.1-11.0) [facility] [place] RBC 4.48 10*6/uL (4.60-6.10) L [facility] HGB 14.0 g/dL (13.5-18.0) [facility] HCT 42.0 % (41.0-53.0) [facility] MCV 93.7 fL (80.0-95.0) [facility] MCH 31.1 pg (27.0-32.0) [facility] MCHC 33.2 g/dL (32.0-36.0) [facility] RDW 13.6 % (10.5-14.5) [facility] PLT 262 10*3/uL (150-450) [facility] MPV 8.9 fL (7.1-10.7) [facility] ID Date Data Source [id number] 06/09/2020 01:09:00 PM EDT [facility] ([facility], ) Name Value Range Interpretation Code Description Data Kayley rce(s) Supporting Document(s) Surgical pathology study Laboratory test result [facility], ) FINAL DIAGNOSIS A - Sinus [...] & APTT 06/05/2020 12:00:00 AM EDT eCW1 ([facility]) Name Value Range Interpretation Code Description Data Kayley rce(s) Supporting Document(s) 13.2 12.5-14.3 eCW1 ([facility]) 0.99 eCW1 ([facility]) 26.8 24.2-38.5 eCW1 ([facility]) ID Date Data Source [id number] 06/05/2020 12:00:00 AM EDT eCW1 ([facility]) Name Value Range Interpretation Code Description Data Kayley rce(s) Supporting Document(s) Hemoglobin A1c/Hemoglobin.total in Blood 5.5 eCW1 ([facility]) ID Date Data Source Comprehensive Metabolic Profile (CMP) 06/05/2020 12:00:00 AM EDT eCW1 ([facility]) Name Value Range Interpretation Code Description Data Kayley rce(s) Supporting Document(s) 0.72 0.70-1.30 CREATININE FOR GFR eCW1 ([facility]) 106 70-100 GLUCOSE, FASTING eCW1 ([facility]) 13 7-18 BLOOD UREA NITROGEN eCW1 ([facility]) 138 136-145 SODIUM LEVEL eCW1 ([facility]) 101 98-107 CHLORIDE LEVEL eCW1 ([facility]) > 60.0 >49 GLOMERULAR FILTRATION RATE eCW 1 ([facility]) 4.5 3.5-5.1 POTASSIUM SERUM eCW1 ([facility]) 24 7-37 AST/SGOT eCW1 ([facility]) 37 12-78 ALT/SGPT eCW1 ([facility]) 9.2 8.8-10.2 CALCIUM LEVEL eCW1 ([facility]) 31 21-32 CARBON DIOXIDE LEVEL eCW1 ([facility]) 4.2 3.2-5.2 ALBUMIN eCW1 ([facility]) 0.7 0.2-1.0 BILIRUBIN,TOTAL eCW1 ([facility]) 7.6 6.4-8.2 TOTAL PROTEIN eCW1 ([facility]) 70 45-117 ALKALINE PHOSPHATASE eCW1 ([facility]) 1.2 ALBUMIN/GLOBULIN RATIO eCW1 ([facility]) ID Date Data Source CBC with Differential 06/05/2020 12:00:00 AM EDT eCW1 ([facility]) Name Value Range Interpretation Code Description Data Kayley rce(s) Supporting Document(s) 8.8 4.0-10.0 WHITE BLOOD COUNT eCW1 ([facility]) 4.58 4.30-6.10 RED BLOOD COUNT eCW1 ([facility]) 30.3 27.0-33.0 MEAN CORPUSCULAR HEMOGLOB IN eCW1 ([facility]) 92.4 80.0-96.0 MEAN CORPUSCULAR VOLUME e CW1 ([facility]) 42.3 42.0-52.0 HEMATOCRIT eCW1 ([facility]) 13.9 13.5-17.5 HEMOGLOBIN eCW1 ([facility]) 32.9 32.0-36.5 MEAN CORPUSCULAR HGB CONC eCW1 ([facility]) 291 150-450 PLATELET COUNT, AUTOMATED eCW1 ([facility]) 13.9 11.5-14.5 RED CELL DISTRIBUTION WID TH eCW1 ([facility]) 9.9 2.0-8.0 MONO % eCW1 ([facility]) 0.0 0.0-3.0 EOS % eCW1 ([facility]) 76.8 36.0-66.0 NEUTROPHILS % eCW1 ([facility]) 12.5 24.0-44.0 LYMPH % eCW1 ([facility]) 0.9 0.0-0.8 MONO # eCW1 ([facility]) 1.1 1.5-5.0 LYMPH # eCW1 ([facility]) 6.8 1.5-8.5 NEUTROPHILS # eCW1 ([facility]) 0.2 0.0-1.0 BASO % eCW1 ([facility]) 0.0 0.0-0.5 EOS # eCW1 ([facility]) 0.0 0.0-0.2 BASO # eCW1 ([facility]) ID Date Data Source NT-PRO BNP 06/05/2020 12:00:00 AM EDT eCW1 ([facility]) Name Value Range Interpretation Code Description Data Kayley rce(s) Supporting Document(s) 285 <125 eCW1 ([facility]) ID Date Data Source [id number] 06/04/2020 12:25:00 PM EDT [facility] Name Value Range Interpretation Code Description Data Kayley rce(s) Supporting Document(s) SARS coronavirus 2 RNA Detected [facility] This lab was ordered by [facility] and reported by [facility]. ID Date Data Source [id number] 05/13/2020 12:09:00 PM EST [facility] ([facility], ) Name Value Range Interpretation Code Description Data Kayley rce(s) Supporting Document(s) Creatinine For GFR 0.66 mg/dL 0.70-1.30 Below low normal [facility] ([facility], ) Glomerular Filtration Rate Laboratory test result Normal (applies to non- numeric results) [facility] ([facility], ) <content>Units are mL/min/1.73 m2</content>
<content></content>
<content>Chronic Kidney Disease Staging per NKF:</content>
<content></content>
<content>Stage I & II GFR >=60 Normal to Mildly Decreased</content>
<content>Stage III GFR 30- 59 Moderately Decreased</content>
<content>Stage IV GFR 15-29 Severely Decreased</content>
<content>Stage V GFR <15 Very Little GFR Left</content>
<content>ESRD GFR <15 on SURVEY SUPERVISOR</content>
<content></content> ID Date Data Source [id number] 05/13/2020 12:09:00 PM EST [facility] ([facility], ) Name Value Range Interpretation Code Description Data Kayley rce(s) Supporting Document(s) Urea nitrogen [Mass/volume] in Serum or Plasma 6 mg/dL 7-18 Below low normal [facility] (Health system) ID Date Data Source [id number] 05/12/2020 01:30:00 PM EST [facility] ([facility]) Name Value Range Interpretation Code Description Data Kayley rce(s) Supporting Document(s) Surgical pathology study Laboratory test result [facility]) FINAL DIAGNOSIS Nasal polyp, left, removal: Inflammatory [...] MD 05/16/2020 1246 ID Date Data Source [id number] 03/04/2020 12:00:00 AM EST [facility] Name Value Range Interpretation Code Description Data Kayley rce(s) Supporting Document(s) SARS-CoV2 Rapid Antigen [facility] This lab was reported by Alexis Dale. ID Date Data Source HEPATITIS A IgG 02/27/2020 12:00:00 AM EST eCW1 ([facility]) Name Value Range Interpretation Code Description Data Kayley rce(s) Supporting Document(s) Negative Negative HEPATITIS A IgG TOTAL eCW 1 ([facility]) ID Date Data Source HEPATITIS C VIRUS AB SCRN MEDICARE 02/27/2020 12:00:00 AM ES T eCW1 ([facility]) Name Value Range Interpretation Code Description Data Kayley rce(s) Supporting Document(s) 0.1 <0.8 HEP C VIRUS AB SCREEN MED ICARE eCW1 ([facility]) ID Date Data Source HEPATITIS B SURFACE ANTIGEN 02/27/2020 12:00:00 AM EST eCW1 ([facility]) Name Value Range Interpretation Code Description Data Kayley rce(s) Supporting Document(s) NEGATIVE NEGATIVE HEPATITIS B SURFACE ANTIG EN eCW1 ([facility]) ID Date Data Source HEPATITIS B SURFACE ANTIBODY 02/27/2020 12:00:00 AM EST eCW1 ([facility]) Name Value Range Interpretation Code Description Data Kayley rce(s) Supporting Document(s) NEGATIVE POSITIVE HEPATITIS B SURFACE ANTIB TRI eCW1 ([facility]) ID Date Data Source HEPATITIS A ANTIBODY IGM 02/27/2020 12:00:00 AM EST eCW1 ([facility]) Name Value Range Interpretation Code Description Data Kayley rce(s) Supporting Document(s) NEGATIVE NEGATIVE HEPATITIS A ANTIBODY IGM eCW1 ([facility]) ID Date Data Source CT Maxillofacial w/out Contrast 02/19/2020 12:00:00 AM EST e CW1 ([facility]) Name Value Range Interpretation Code Description Data Kayley rce(s) Supporting Document(s) eCW1 ([facility]) ID Date Data Source PSA SCREENING 02/12/2020 12:00:00 AM EST eCW1 ([facility]) Name Value Range Interpretation Code Description Data Kayley rce(s) Supporting Document(s) 1.71 < 4.00 eCW1 ([facility]) ID Date Data Source LIPID PANEL (CARDIAC RISK) 02/12/2020 12:00:00 AM EST eCW1 ( [facility]) Name Value Range Interpretation Code Description Data Kayley rce(s) Supporting Document(s) Triglyceride [Mass/volume] in Serum or Plasma by calculation 82 <150 eCW1 ([facility]) Cholesterol in LDL [Mass/volume] in Serum or Plasma by calculation 71 <100 eCW1 ([facility]) 87 eCW1 ([facility]) Cholesterol in HDL [Moles/volume] in Serum or Plasma 97 >40 eCW1 ([facility]) Cholesterol [Moles/volume] in Serum or Plasma 184 <200 eCW1 ([facility]) 1.896 <5 eCW1 ([facility]) ID Date Data Source FREE T4 & TSH PANEL 02/12/2020 12:00:00 AM EST eCW1 ([facility]) Name Value Range Interpretation Code Description Data Kayley rce(s) Supporting Document(s) 0.528 0.358-3.740 eCW1 ([facility]) 0.99 0.76-1.46 eCW1 ([facility]) ID Date Data Source CPK CREATINE PHOSPHOKINASE 02/12/2020 12:00:00 AM EST eCW1 ( [facility]) Name Value Range Interpretation Code Description Data Kayley rce(s) Supporting Document(s) [id number] eCW1 ([facility]) Procedure Social History Code Duration Value Status Description Data Source(s ) Smoking 12/28/2020 12:00:00 AM EDT Former Smoker completed Former Smoker eCW1 ([facility]) Smoking 12/28/2020 12:00:00 AM EDT Former Smoker completed Former Smoker eCW1 ([facility]) Smoking 12/28/2020 12:00:00 AM EDT Former Smoker completed Former Smoker eCW1 ([facility]) Smoking 12/23/2020 12:00:00 AM EDT Former Smoker completed Former Smoker eCW1 ([facility]) Smoking 12/02/2020 12:00:00 AM EDT Former Smoker completed Former Smoker eCW1 ([facility]) Smoking 12/02/2020 12:00:00 AM EDT Former Smoker completed Former Smoker eCW1 ([facility]) Smoking 12/02/2020 12:00:00 AM EDT Former Smoker completed Former Smoker eCW1 ([facility]) Alcohol intake 07/18/2020 12:00:00 AM EDT Current drinker of al cohol (finding) completed Current drinker of alcohol (finding) [facility] Smoking 06/05/2020 12:00:00 AM EDT Former Smoker completed Former Smoker eCW1 ([facility]) Smoking 06/05/2020 12:00:00 AM EDT Former Smoker completed Former Smoker eCW1 ([facility]) Smoking 06/05/2020 12:00:00 AM EDT Former Smoker completed Former Smoker eCW1 ([facility]) Smoking 06/05/2020 12:00:00 AM EDT Former Smoker completed Former Smoker eCW1 ([facility]) Smoking 06/05/2020 12:00:00 AM EDT Former Smoker completed Former Smoker eCW1 ([facility]) Smoking 02/27/2020 12:00:00 AM EST Former Smoker completed Former Smoker eCW1 ([facility]) Smoking 02/27/2020 12:00:00 AM EST Former Smoker completed Former Smoker eCW1 ([facility]) Smoking 02/27/2020 12:00:00 AM EST Former Smoker completed Former Smoker eCW1 ([facility]) Smoking 02/27/2020 12:00:00 AM EST Former Smoker completed Former Smoker eCW1 ([facility]) Smoking 02/19/2020 12:00:00 AM EST Former Smoker completed Former Smoker eCW1 ([facility]) Smoking 02/19/2020 12:00:00 AM EST Former Smoker completed Former Smoker eCW1 ([facility]) Smoking 02/12/2020 12:00:00 AM EST Former Smoker completed Former Smoker eCW1 ([facility]) Alcohol intake 01/15/2020 12:00:00 AM EST Yes completed [facility] Cigarette pack-years 01/15/2020 12:00:00 AM EST UNK completed [facility] Cigarettes smoked current (pack per day) - Reported 01/15/20 20 12:00:00 AM EST UNK completed [facility] Smoking 01/15/2020 12:00:00 AM EST Former smoker completed Former smoker [facility] Smoking 01/01/2020 12:00:00 AM EDT Former Smoker completed Former Smoker eCW1 ([facility]) Smoking 01/01/2020 12:00:00 AM EDT Former Smoker completed Former Smoker eCW1 ([facility]) Smoking 01/01/2020 12:00:00 AM EDT Former Smoker completed Former Smoker eCW1 ([facility]) Smoking 01/01/2020 12:00:00 AM EDT Former Smoker completed Former Smoker eCW1 ([facility]) Vital Signs ID Date Data Source UNK Name Value Range Interpretation Code Description Data Source(s) Body height 68 [in_i] 68 [in_i] [facility] ([facility]) 5'8" Body weight 86.184 kg 86.184 kg [facility] ([facility]) Body surface area Derived from formula 2.00 m2 2.00 m2 [facility] (Health system) Body weight 190.00 [lb_av] 190.00 [lb_av] [facility] (Health system) Body mass index (BMI) [Ratio] 28.9 kg/m2 28.9 k g/m2 [facility] (Health system) [place] body weight 154 [lb_av] 154 [lb_av] [facility] Body weight 188 [lb_av] 188 [lb_av] W1 ([facility]) Body weight 85.28 kg 85.28 kg [facility] ([facility]) Body height 70.5 [in_i] 70.5 [in_i] eCW1 ([facility]) Body mass index (BMI) [Ratio] 26.59 kg/m2 26.59 kg/m2 [facility] ([facility]) Heart rate 67 /min 67 /min eCW1 ([facility]) Respiratory rate 18 /min 18 /min W1 ([facility]) Body temperature 99 [degF] 99 [degF] eCW1 ([facility]) Systolic blood pressure 128 mm[Hg] 128 mm[Hg] e CW1 ([facility]) Diastolic blood pressure 62 mm[Hg] 62 mm[Hg] eCW1 ([facility]) Systolic blood pressure 118 mm[Hg] 118 mm[Hg] [facility] Diastolic blood pressure 80 mm[Hg] 80 mm[Hg] [facility] Body mass index (BMI) [Ratio] 29.2 kg/m2 29.2 k g/m2 [facility] (Health system) Body weight 87.091 kg 87.091 kg [facility] Heart rate 67 /min 67 /min [facility] ([facility]) Oxygen saturation in Arterial blood by Pulse oximetry 98 % 98 % [facility] (Health system) Body temperature 99.9 [degF] 99.9 [degF] [facility] (Health system) Body height 68 [in_i] 68 [in_i] [facility] 5'8" Body weight 192.00 [lb_av] 192.00 [lb_av] [facility] ([facility] system) [place] body weight 154 [lb_av] 154 [lb_av] [facility] (Health system) Body surface area Derived from formula 2.01 m2 2.01 m2 [facility] (Health system) Body weight 192 [lb_av] 192 [lb_av] eCW1 ([facility]) Body weight 87.09 kg 87.09 kg W1 ([facility]) Body height 70.5 [in_i] 70.5 [in_i] eCW1 ([facility]) Body mass index (BMI) [Ratio] 27.16 kg/m2 27.16 kg/m2 W1 ([facility]) Heart rate 72 /min 72 /min eCW1 ([facility]) Respiratory rate 18 /min 18 /min eCW1 ([facility]) Body temperature 98.9 [degF] 98.9 [degF] eCW1 ( [facility]) Systolic blood pressure 144 mm[Hg] 144 mm[Hg] e CW1 ([facility]) Diastolic blood pressure 72 mm[Hg] 72 mm[Hg] eCW1 ([facility]) Heart rate 68 /min 68 /min [facility] Body temperature 99.4 [degF] 99.4 [degF] [facility] (Health system) Body height 68 [in_i] 68 [in_i] [facility] ([facility]) 5'8" Body weight 193.00 [lb_av] 193.00 [lb_av] [facility] (Health system) Body mass index (BMI) [Ratio] 29.3 kg/m2 29.3 k g/m2 [facility] (Health system) Body weight 87.545 kg 87.545 kg [facility] ([facility]) [place] body weight 154 [lb_av] 154 [lb_av] [facility] (Health system) Body surface area Derived from formula 2.01 m2 2.01 m2 [facility] (Health system) Oxygen saturation in Arterial blood by Pulse oximetry 97 % 97 % [facility] (Health system) Systolic blood pressure 128 mm[Hg] 128 mm[Hg] [facility] Diastolic blood pressure 70 mm[Hg] 70 mm[Hg] [facility] (Health system) Heart rate 70 /min 70 /min [facility] ([facility]) Oxygen saturation in Arterial blood by Pulse oximetry 98 % 98 % [facility] (Health system) Body temperature 100.1 [degF] 100.1 [degF] [facility] (Health system) Systolic blood pressure 130 mm[Hg] 130 mm[Hg] [facility] (Health system) Diastolic blood pressure 90 mm[Hg] 90 mm[Hg] [facility] (Health system) Body weight 188.00 [lb_av] 188.00 [lb_av] [facility] ([facility] Body height 68 [in_i] 68 [in_i] [facility] ([facility]) 5'8" Body mass index (BMI) [Ratio] 28.6 kg/m2 28.6 k g/m2 [facility] (Health system) [place] body weight 154 [lb_av] 154 [lb_av] [facility] (Health system) Body weight 85.277 kg 85.277 kg [facility] ([facility]) Body surface area Derived from formula 1.99 m2 1.99 m2 [facility] (Health system) Body height 68 [in_i] 68 [in_i] [facility] ([facility]) 5'8" Body weight 85.730 kg 85.730 kg [facility] ([facility]) Body surface area Derived from formula 2.00 m2 2.00 m2 [facility] (Health system) Body mass index (BMI) [Ratio] 28.7 kg/m2 28.7 k g/m2 [facility] (Health system) [place] body weight 154 [lb_av] 154 [lb_av] [facility] (Health system) Body weight 189.00 [lb_av] 189.00 [lb_av] [facility] (Health system) Body mass index (BMI) [Ratio] 29.0 kg/m2 29.0 k g/m2 [facility] (Health system) Body height 68 [in_i] 68 [in_i] [facility] 5'8" Body weight 191.00 [lb_av] 191.00 [lb_av] [facility] (Health system) [place] body weight 154 [lb_av] 154 [lb_av] [facility] (Health system) Body weight 86.638 kg 86.638 kg [facility] ([facility]) Body surface area Derived from formula 2.00 m2 2.00 m2 [facility] (Health system) Body surface area Derived from formula 2.00 m2 2.00 m2 [facility] (Health system) Body weight 86.184 kg 86.184 kg [facility]) [place] body weight 154 [lb_av] 154 [lb_av] [facility] (Health system) Body height 68 [in_i] 68 [in_i] [facility] 5'8" Body weight 190.00 [lb_av] 190.00 [lb_av] [facility] (Health system) Body mass index (BMI) [Ratio] 28.9 kg/m2 28.9 k g/m2 [facility]) [place] body weight 154 [lb_av] 154 [lb_av] [facility] (Health system) Body weight 86.184 kg 86.184 kg [facility] ([facility]) Body surface area Derived from formula 2.00 m2 2.00 m2 [facility] (Health system) Body mass index (BMI) [Ratio] 28.9 kg/m2 28.9 k g/m2 [facility] (Health system) Body height 68 [in_i] 68 [in_i] [facility] ([facility]) 5'8" Body weight 190.00 [lb_av] 190.00 [lb_av] [facility] (Health system) Body mass index (BMI) [Ratio] 28.9 kg/m2 28.9 k g/m2 [facility] (Health system) [place] body weight 154 [lb_av] 154 [lb_av] [facility] (Health system) Body weight 86.184 kg 86.184 kg [facility] ([facility]) Body surface area Derived from formula 2.00 m2 2.00 m2 [facility] (Health system) Body height 68 [in_i] 68 [in_i] [facility] ([facility]) 5'8" Body weight 190.00 [lb_av] 190.00 [lb_av] [facility] (Health system) Systolic blood pressure 120 mm[Hg] 120 mm[Hg] [facility] Diastolic blood pressure 68 mm[Hg] 68 mm[Hg] [facility] Heart rate 67 /min 67 /min [facility] Body height 180.3 cm 180.3 cm [facility] Body weight 85.73 kg 85.73 kg [facility] Body mass index (BMI) [Ratio] 26.36 kg/m2 26.36 kg/m2 [facility] Oxygen saturation in Arterial blood by Pulse oximetry 97 % 97 % [facility] Systolic blood pressure 126 mm[Hg] 126 mm[Hg] [facility] Diastolic blood pressure 76 mm[Hg] 76 mm[Hg] [facility] (Health system) [place] body weight 154 [lb_av] 154 [lb_av] [facility] (Health system) Body weight 86.638 kg 86.638 kg [facility] ([facility]) Oxygen saturation in Arterial blood by Pulse oximetry 98 % 98 % [facility] (Health system) Room Air Body height 68 [in_i] 68 [in_i] [facility] ([facility]) 5'8" Body weight 191.00 [lb_av] 191.00 [lb_av] [facility] (Health system) Body mass index (BMI) [Ratio] 29.0 kg/m2 29.0 k g/m2 [facility] (Health system) Body surface area Derived from formula 2.00 m2 2.00 m2 [facility] (Health system) Heart rate 66 /min 66 /min [facility] ([facility]) Oxygen saturation in Arterial blood by Pulse oximetry 98 % 98 % [facility] (Health system) Room Air Body height 68 [in_i] 68 [in_i] [facility] ([facility]) 5'8" Body weight 191.00 [lb_av] 191.00 [lb_av] [facility] (Health system) Body mass index (BMI) [Ratio] 29.0 kg/m2 29.0 k g/m2 [facility] (Health system) [place] body weight 154 [lb_av] 154 [lb_av] [facility] (Health system) Body weight 86.638 kg 86.638 kg [facility] ([facility]) Body surface area Derived from formula 2.00 m2 2.00 m2 [facility] (Health system) Body height 68 [in_i] 68 [in_i] [facility] ([facility]) 5'8" Body weight 188.00 [lb_av] 188.00 [lb_av] [facility] (Health system) Body mass index (BMI) [Ratio] 28.6 kg/m2 28.6 k g/m2 [facility] (Health system) [place] body weight 154 [lb_av] 154 [lb_av] [facility] (Health system) Body surface area Derived from formula 1.99 m2 1.99 m2 [facility] (Health system) Body weight 85.277 kg 85.277 kg [facility] ([facility]) Heart rate 69 /min 69 /min [facility] ([facility]) Diastolic blood pressure 70 mm[Hg] 70 mm[Hg] [facility] (Health system) Systolic blood pressure 120 mm[Hg] 120 mm[Hg] M [facility] (Health system) Oxygen saturation in Arterial blood by Pulse oximetry 97 % 97 % [facility] (Health system) Room Air Body height 68 [in_i] 68 [in_i] [facility] ([facility]) 5'8" Body weight 188.00 [lb_av] 188.00 [lb_av] [facility] (Health system) Body mass index (BMI) [Ratio] 28.6 kg/m2 28.6 k g/m2 [facility] (Health system) [place] body weight 154 [lb_av] 154 [lb_av] [facility] (Health system) Body weight 85.277 kg 85.277 kg [facility] ([facility]) Body surface area Derived from formula 1.99 m2 1.99 m2 [facility] (Health system) Body mass index (BMI) [Ratio] 28.3 kg/m2 28.3 k g/m2 [facility] (Health system) Body height 68 [in_i] 68 [in_i] [facility] ([facility]) 5'8" Body weight 186.00 [lb_av] 186.00 [lb_av] [facility] (Health system) [place] body weight 154 [lb_av] 154 [lb_av] [facility] (Health system) Body weight 84.370 kg 84.370 kg [facility] Body surface area Derived from formula 1.98 m2 1.98 m2 [facility] (Health system) Body height 68 [in_i] 68 [in_i] [facility] ([facility]) 5'8" Body weight 186.00 [lb_av] 186.00 [lb_av] [facility] (Health system) Body mass index (BMI) [Ratio] 28.3 kg/m2 28.3 k g/m2 [facility] (Health system) [place] body weight 154 [lb_av] 154 [lb_av] [facility] (Health system) Body weight 84.370 kg 84.370 kg [facility] Body surface area Derived from formula 1.98 m2 1.98 m2 [facility] (Health system) Body weight 189.4 [lb_av] 189.4 [lb_av] eCW1 ([facility]) Body height 70.5 [in_i] 70.5 [in_i] eCW1 ([facility]) Body mass index (BMI) [Ratio] 26.79 kg/m2 26.79 kg/m2 [facility] ([facility]) Heart rate 83 /min 83 /min eCW1 ([facility]) Respiratory rate 20 /min 20 /min eCW1 ([facility]) Body temperature 99.5 [degF] 99.5 [degF] eCW1 ( [facility]) Systolic blood pressure 138 mm[Hg] 138 mm[Hg] e CW1 ([facility]) Diastolic blood pressure 72 mm[Hg] 72 mm[Hg] eCW1 ([facility]) Body height 68 [in_i] 68 [in_i] [facility] ([facility]) 5'8" Body weight 186.00 [lb_av] 186.00 [lb_av] [facility] (Health system) Body mass index (BMI) [Ratio] 28.3 kg/m2 28.3 k g/m2 [facility] (Health system) [place] body weight 154 [lb_av] 154 [lb_av] [facility] (Health system) Body weight 84.370 kg 84.370 kg [facility] ([facility]) Body surface area Derived from formula 1.98 m2 1.98 m2 [facility] Body height 68 [in_i] 68 [in_i] [facility] ([facility]) 5'8" Body weight 186.00 [lb_av] 186.00 [lb_av] [facility] (Health system) Body mass index (BMI) [Ratio] 28.3 kg/m2 28.3 k g/m2 [facility] (Health system) [place] body weight 154 [lb_av] 154 [lb_av] [facility] (Health system) Body weight 84.370 kg 84.370 kg [facility] ([facility]) Body surface area Derived from formula 1.98 m2 1.98 m2 [facility] (Health system) Body height 68 [in_i] 68 [in_i] [facility] ([facility]) 5'8" Body weight 186.00 [lb_av] 186.00 [lb_av] [facility] (Health system) Body mass index (BMI) [Ratio] 28.3 kg/m2 28.3 k g/m2 [facility] (Health system) [place] body weight 154 [lb_av] 154 [lb_av] [facility] (Health system) Body weight 84.370 kg 84.370 kg [facility] ([facility]) Body surface area Derived from formula 1.98 m2 1.98 m2 [facility] (Health system) Body height 68 [in_i] 68 [in_i] [facility] ([facility]) 5'8" Body weight 186.00 [lb_av] 186.00 [lb_av] [facility] (Health system) Body mass index (BMI) [Ratio] 28.3 kg/m2 28.3 k g/m2 [facility] (Health system) [place] body weight 154 [lb_av] 154 [lb_av] [facility] (Health system) Body weight 84.370 kg 84.370 kg [facility] ([facility]) Body surface area Derived from formula 1.98 m2 1.98 m2 [facility] (Health system) Systolic blood pressure 144 mm[Hg] 144 mm[Hg] [facility] ([facility]) Diastolic blood pressure 79 mm[Hg] 79 mm[Hg] [facility] ([facility]) Heart rate 65 /min 65 /min [facility] ([facility]) Respiratory rate 16 /min 16 /min [facility]) Oxygen saturation in Arterial blood by Pulse oximetry 96 % 96 % [facility] ([facility]) Body temperature 98.7 [degF] 98.7 [degF] [facility] ([facility]) Body weight 182.00 [lb_av] 182.00 [lb_av] [facility] ([facility]) Body weight 192.6 [lb_av] 192.6 [lb_av] eCW1 ([facility]) Body height 70.5 [in_i] 70.5 [in_i] eCW1 ([facility]) Body mass index (BMI) [Ratio] 27.24 kg/m2 27.24 kg/m2 eCW1 ([facility]) Heart rate 74 /min 74 /min eCW1 ([facility]) Respiratory rate 18 /min 18 /min eCW1 ([facility]) Body temperature 98.7 [degF] 98.7 [degF] eCW1 ( [facility]) Systolic blood pressure 140 mm[Hg] 140 mm[Hg] e CW1 ([facility]) Diastolic blood pressure 66 mm[Hg] 66 mm[Hg] eCW1 ([facility]) Oxygen saturation in Arterial blood by Pulse oximetry 99 % 99 % [facility] Body temperature 98.5 [degF] 98.5 [degF] [facility] (Health system) Body height 68 [in_i] 68 [in_i] [facility] ([facility]) 5'8" Body weight 192.00 [lb_av] 192.00 [lb_av] [facility] (Health system) Body mass index (BMI) [Ratio] 29.2 kg/m2 29.2 k g/m2 [facility] (Health system) [place] body weight 154 [lb_av] 154 [lb_av] [facility] (Health system) Body weight 87.091 kg 87.091 kg [facility] ([facility]) Body surface area Derived from formula 2.01 m2 2.01 m2 [facility] (Health system) Systolic blood pressure 130 mm[Hg] 130 mm[Hg] [facility] (Health system) Diastolic blood pressure 72 mm[Hg] 72 mm[Hg] [facility] (Health system) Heart rate 70 /min 70 /min [facility] ([facility]) Body weight 192 [lb_av] 192 [lb_av] eCW1 ([facility]) Body height 70.5 [in_i] 70.5 [in_i] eCW1 ([facility]) Body mass index (BMI) [Ratio] 27.16 kg/m2 27.16 kg/m2 eCW1 ([facility]) Heart rate 79 /min 79 /min eCW1 ([facility]) Respiratory rate 18 /min 18 /min eCW1 ([facility]) Body temperature 99.6 [degF] 99.6 [degF] eCW1 ( [facility]) Systolic blood pressure 132 mm[Hg] 132 mm[Hg] e CW1 ([facility]) Diastolic blood pressure 74 mm[Hg] 74 mm[Hg] eCW1 ([facility]) Systolic blood pressure 148 mm[Hg] 148 mm[Hg] [facility] Diastolic blood pressure 82 mm[Hg] 82 mm[Hg] [facility] Heart rate 70 /min 70 /min [facility] Body height 180.3 cm 180.3 cm [facility] Body weight 86.183 kg 86.183 kg [facility] Body mass index (BMI) [Ratio] 26.50 kg/m2 26.50 kg/m2 [facility] Oxygen saturation in Arterial blood by Pulse oximetry 98 % 98 % [facility] Body weight 186 [lb_av] 186 [lb_av] eCW1 ([facility]) Body height 70.5 [in_i] 70.5 [in_i] W1 ([facility]) Body mass index (BMI) [Ratio] 26.31 kg/m2 26.31 kg/m2 W1 ([facility]) Heart rate 88 /min 88 /min eCW1 ([facility]) Respiratory rate 18 /min 18 /min eCW1 ([facility]) Body temperature 99.2 [degF] 99.2 [degF] eCW1 ( [facility]) Systolic blood pressure 128 mm[Hg] 128 mm[Hg] e CW1 ([facility]) Diastolic blood pressure 70 mm[Hg] 70 mm[Hg] eCW1 ([facility]) Systolic blood pressure 118 mm[Hg] 118 mm[Hg] M [facility] ([facility], ) Diastolic blood pressure 78 mm[Hg] 78 mm[Hg] [facility] Heart rate 66 /min 66 /min [facility] ([facility], ) Oxygen saturation in Arterial blood by Pulse oximetry 98 % 98 % [facility] ([facility], ) Room Air Body height 68 [in_i] 68 [in_i] [facility] ([facility], ) 5'8" Body weight 190.00 [lb_av] 190.00 [lb_av] [facility] T ([facility], ) Body mass index (BMI) [Ratio] 28.9 kg/m2 28.9 k g/m2 [facility] (Health system) [place] body weight 154 [lb_av] 154 [lb_av] [facility] (Health system) Body weight 86.184 kg 86.184 kg [facility] ([facility]) Body surface area Derived from formula 2.00 m2 2.00 m2 [facility] (Health system) Patient Treatment Plan of Care Planned Activity Planned Date Details Description Data Source (s) voriconazole 200 MG Oral Tablet 12/02/2020 12:00:00 AM EDT eCW1 ([facility]) voriconazole 200 MG Oral Tablet 12/02/2020 12:00:00 AM EDT eCW1 ([facility]) voriconazole 200 MG Oral Tablet 12/02/2020 12:00:00 AM EDT eCW1 ([facility]) Hydrochlorothiazide 12.5 MG Oral Tablet 09/12/2020 12:00:00 AM EDT [facility] Simvastatin 40 MG Oral Tablet 09/04/2020 12:00:00 AM EDT [facility] Lisinopril 40 MG Oral Tablet 06/18/2020 12:00:00 AM EDT [facility] Aspir-Low 81 MG 03/11/2020 12:00:00 AM EST eCW1 ([facility]) Aspir-Low 81 MG 03/11/2020 12:00:00 AM EST eCW1 ([facility]) Aspir-Low 81 MG 03/11/2020 12:00:00 AM EST eCW1 ([facility]) Aspir-Low 81 MG 03/11/2020 12:00:00 AM EST eCW1 ([facility]) Doxycycline Monohydrate 100 MG Oral Capsule 02/18/2020 12:00:00 AM EST eCW1 ([facility]) Doxycycline Monohydrate 100 MG Oral Capsule 02/18/2020 12:00:00 AM EST eCW1 ([facility]) Doxycycline Monohydrate 100 MG Oral Capsule 02/18/2020 12:00:00 AM EST eCW1 ([facility]) Doxycycline Monohydrate 100 MG Oral Capsule 02/18/2020 12:00:00 AM EST eCW1 ([facility]) Doxycycline Monohydrate 100 MG Oral Capsule 02/18/2020 12:00:00 AM EST eCW1 ([facility]) Doxycycline Monohydrate 100 MG Oral Capsule 02/18/2020 12:00:00 AM EST eCW1 ([facility]) Doxycycline Monohydrate 100 MG Oral Capsule 02/18/2020 12:00:00 AM EST eCW1 ([facility]) Doxycycline Monohydrate 100 MG Oral Capsule 02/18/2020 12:00:00 AM EST eCW1 ([facility]) Doxycycline Monohydrate 100 MG Oral Capsule 02/18/2020 12:00:00 AM EST eCW1 ([facility]) Doxycycline Monohydrate 100 MG Oral Capsule 02/18/2020 12:00:00 AM EST eCW1 ([facility]) Doxycycline Monohydrate 100 MG Oral Capsule 02/18/2020 12:00:00 AM EST eCW1 ([facility]) Sulfamethoxazole 800 MG / Trimethoprim 160 MG Oral Tab let [Bactrim] 02/12/2020 12:00:00 AM EST eCW1 ([facility]) Trazodone Hydrochloride 50 MG Oral Tablet 01/28/2020 12:00:00 AM ES T eCW1 ([facility]) Trazodone Hydrochloride 50 MG Oral Tablet 01/28/2020 12:00:00 AM ES T eCW1 ([facility]) Trazodone Hydrochloride 50 MG Oral Tablet 01/28/2020 12:00:00 AM ES T eCW1 ([facility]) Trazodone Hydrochloride 50 MG Oral Tablet 01/28/2020 12:00:00 AM ES T eCW1 ([facility]) Trazodone Hydrochloride 50 MG Oral Tablet 01/28/2020 12:00:00 AM ES T eCW1 ([facility]) Trazodone Hydrochloride 50 MG Oral Tablet 01/28/2020 12:00:00 AM ES T eCW1 ([facility]) Trazodone Hydrochloride 50 MG Oral Tablet 01/28/2020 12:00:00 AM ES T eCW1 ([facility]) Simvastatin 40 MG Oral Tablet 01/09/2020 12:00:00 AM EDT [facility] Levofloxacin 500 MG Oral Tablet 01/01/2020 12:00:00 AM EDT eCW1 ([facility]) Levofloxacin 500 MG Oral Tablet 01/01/2020 12:00:00 AM EDT eCW1 ([facility]) Levofloxacin 500 MG Oral Tablet 01/01/2020 12:00:00 AM EDT eCW1 ([facility]) Levofloxacin 500 MG Oral Tablet 01/01/2020 12:00:00 AM EDT eCW1 ([facility]) Lisinopril 40 MG Oral Tablet 08/20/2019 12:00:00 AM EDT [facility] Hydrochlorothiazide 12.5 MG Oral Tablet 08/07/2019 12:00:00 AM EDT [facility]
[2021-02-01] MEDS ORDERED: CIPR500T39 PO (13:15)
[2021-02-01] MEDS ORDERED: AMLO10TA PO (13:15)
[2021-02-01] MEDS ORDERED: [UNRECOGNIZED DRUG - CODE] IV (13:15)
[2021-02-01] MEDS ORDERED: NS 1,000 ML IV ONE (13:45)
[2021-02-01] MEDS ORDERED: PROMETHAZINE INJ 25 MG/ML VIAL (J2550) IV ONE (13:45)
[2021-02-01] MEDS ORDERED: MORPHINE 4 MG/ML 1ML VIAL/SYRINGE (J2270) IV ONE (13:45)
[2021-02-01 14:13] LABS: BASO # 0.1 10^3/uL (0.0-0.2); BASO % 0.4 % (0.0-1.0); HEMATOCRIT 31.1 % (42.0-52.0); HEMOGLOBIN 10.2 g/dl (13.5-17.5); MEAN CORPUSCULAR HEMOGLOBIN 31.3 pg (27.0-33.0); MEAN CORPUSCULAR HGB CONC 32.8 g/dl (32.0-36.5); MEAN CORPUSCULAR VOLUME 95.4 fl (80.0-96.0); MONO # 1.5 10^3/uL (0.0-0.8); MONO % 9.3 % (2.0-8.0); NEUTROPHILS # 13.5 10^3/uL (1.5-8.5); NEUTROPHILS % 83.4 % (36.0-66.0); PLATELET COUNT, AUTOMATED 631 10^3/uL (150-450); RED BLOOD COUNT 3.26 10^6/uL (4.30-6.10); WHITE BLOOD COUNT 16.2 10^3/uL (4.0-10.0)
--- OUTSIDE RECORDS SUMMARY | 2021-02-01 14:35 | CCD ---
Author Author [facility] Organization [facility] Address Unknown Phone Unavailable Care Team Providers Care Hide [place] Man Name Role Phone Daniel La MD Unavailable [...] Unavailable Harsha B Alec GAY Unavailable Unavailable Abrelio B [...] MadhiraParamjit MD Unavailable Unavailable Fons, M Osiris FIELD SUPPORT REP Unavailable Unavailable Fons, M Osiris FIELD SUPPORT REP Unavailable Unavailable Fons, M Osiris FIELD SUPPORT REP Unavailable Unavailable Fons, M Osiris FIELD SUPPORT REP Unavailable Unavailable Fons, M Osiris FIELD SUPPORT REP Unavailable Unavailable Fons, M Osiris FIELD SUPPORT REP Unavailable Unavailable Fons, M Osiris FIELD SUPPORT REP Unavailable Unavailable Fons, M Osiris FIELD SUPPORT REP Unavailable Unavailable Fons, M Osiris FIELD SUPPORT REP Unavailable Unavailable Fons, M Osiris FIELD SUPPORT REP Unavailable Unavailable Fons, M Osiris FIELD SUPPORT REP Unavailable Unavailable Fons, M Osiris FIELD SUPPORT REP Unavailable Unavailable Fons, M Osiris FIELD SUPPORT REP Unavailable Unavailable Fons, M Osiris FIELD SUPPORT REP Unavailable Unavailable Fons, M Osiris FIELD SUPPORT REP Unavailable Unavailable Fons, M Osiris FIELD SUPPORT REP Unavailable Unavailable Fons, M Osiris FIELD SUPPORT REP Unavailable Unavailable Fons, M Osiris FIELD SUPPORT REP Unavailable Unavailable Fons, M Osiris FIELD SUPPORT REP Unavailable Unavailable Fons, M Osiris FIELD SUPPORT REP Unavailable Unavailable Fons, M Osiris FIELD SUPPORT REP Unavailable Unavailable Fons, M Osiris FIELD SUPPORT REP Unavailable Unavailable Fons, M Osiris FIELD SUPPORT REP Unavailable Unavailable Fons, M Osiris FIELD SUPPORT REP Unavailable Unavailable Fons, M Osiris FIELD SUPPORT REP Unavailable Unavailable Fons, M Osiris FIELD SUPPORT REP Unavailable Unavailable Fons, M Osiris FIELD SUPPORT REP Unavailable Unavailable Fons, M Osiris FIELD SUPPORT REP Unavailable Unavailable Fons, M Osiris FIELD SUPPORT REP Unavailable Unavailable Fons, M Osiris FIELD SUPPORT REP Unavailable Unavailable Fons, M Osiris FIELD SUPPORT REP Unavailable Unavailable Fons, M Osiris FIELD SUPPORT REP Unavailable Unavailable Fons, M Osiris FIELD SUPPORT REP Unavailable Unavailable Fons, M Osiris FIELD SUPPORT REP Unavailable Unavailable Fons, M Osiris FIELD SUPPORT REP Unavailable Unavailable Fons, M Osiris FIELD SUPPORT REP Unavailable Unavailable Fons, M Osiris FIELD SUPPORT REP Unavailable Unavailable Fons, M Osiris FIELD SUPPORT REP Unavailable Unavailable Fons, M Osiris FIELD SUPPORT REP Unavailable Unavailable Fons, M Osiris FIELD SUPPORT REP Unavailable Unavailable Fons, M Osiris FIELD SUPPORT REP Unavailable Unavailable Fons, M Osiris FIELD SUPPORT REP Unavailable Unavailable Fons, M Osiris FIELD SUPPORT REP Unavailable Unavailable Fons, M Osiris FIELD SUPPORT REP Unavailable Unavailable Fons, M Osiris FIELD SUPPORT REP Unavailable Unavailable Fons, M Osiris FIELD SUPPORT REP Unavailable Unavailable Fons, M Osiris FIELD SUPPORT REP Unavailable Unavailable Fons, M Osiris FIELD SUPPORT REP Unavailable Unavailable Fons, M Osiris FIELD SUPPORT REP Unavailable Unavailable Fons, M Osiris FIELD SUPPORT REP Unavailable Unavailable Fons, M Osiris FIELD SUPPORT REP Unavailable Unavailable Fons, M Osiris FIELD SUPPORT REP Unavailable Unavailable Fons, M Osiris FIELD SUPPORT REP Unavailable Unavailable Vinnie Zhang MD Unavailable Unavailable [...] Unavailable Unavailable Addis Nicholson MD Unavailable Unavailable Addsi Nicholson MD Unavailable Unavailable Bharat, Addis MD [...] is protected by Article 27-F of the [facility] Public Health law. If you continue you may have access to information: Regarding HIV / AIDS; Provided by facilities licensed or operated by the [facility] Office of Mental Health; or Provided by the [facility] Office for People With Developmental Disabilities. If such information is present, then the following [facility] mandated warning applies: This information has been [...] law may result in a fine or chcf sentence or both. A general authorization for the release of medical or other information is NOT sufficient authorization for further disc losure. Allergies and Adverse Reactions Type Description Substance Reaction Status Data Source(s ) Propensity to adverse reactions LATEX Latex Rash [facility] to [facility] Family Member Name Family Member Gender Family Member Status Date o f Status Description Data Source(s) Unknown Unknown Problem MEDENT ([facility]) Unknown Male Problem MEDENT ([facility]) Unknown Female Unknown Male Encounters Encounter Providers Location Date Indications Data Source(s ) Outpatient Attender: Addis Nicholson MDReferrer: Isai pickett MD 06/16/2021 12:00:00 AM [facility] Outpatient Attender: Isai Blair MD 03/03/2021 12:00: 00 AM [facility] Outpatient Attender: Isai Leal-ONCCACTR 12:00:00 AM EST - 01/29/2021 02:21:06 PM [facility] [place] [address] [facility] [address] 01/27/2021 12:00:00 AM EST eCW1 ([facility]) Outpatient Attender: Isai Leal-ONCCACTR 12:00:00 AM EST - 01/22/2021 02:52:46 PM [facility] [place] [address] [facility] [address] 01/22/2021 12:00:00 AM EST eCW1 ([facility]) Outpatient Attender: Isai Leal-ONCCACTR 12:00:00 AM EDT - 01/16/2021 08:03:47 AM EDT Anaplastic large cell lymphoma, 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, extranodal and solid organ sites [facility] Anaplastic large cell lymphoma, 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, extranodal and solid organ sites Outpatient Attender: Hal Mariscal/Kimberly/Marty/Rein dl 01/08/2021 10:00:00 AM EDT MEDENT ([facility]) Outpatient Attender: Isai Leal-ONCCACTR 12:00:00 AM [facility] Outpatient Attender: Isai Blair MD 01/06/2021 12:00: 00 AM [facility] Outpatient Attender: Isai Leal-ONCCACTR 12:00:00 AM EDT - 01/01/2021 12:02:50 PM EDT [facility] Outpatient Attender: Isai Leal-ONCCACTR 12:00:00 AM EDT - 12/26/2020 08:07:20 AM EDT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, nasal type [facility]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, nasal typ e Outpatient [address] [facility] [address] 12/23/2020 12:00:00 AM EDT eCW1 ([facility]) Outpatient Attender: Isai Leal-ONCCACTR 12:00:00 AM EDT - 12/16/2020 03:39:15 PM T [facility] al [place] [address] [facility] [address] 12/12/2020 12:00:00 AM EDT eCW1 ([facility]) Outpatient Attender: Isai Blair MDReferrer: Isai Blair MD 12/11/2020 12:00:00 AM [facility] Outpatient Attender: Isai Blair MD 12/11/2020 12:00: 00 AM [facility] Outpatient Attender: Bryson Guzman PH.D., M.D. Loida/Kimberly/Thanh camacho/Leodan 12/09/2020 11:30:00 AM EDT MED[facility] ([facility] [place] [address] [facility] [address] 12/08/2020 12:00:00 AM EDT eCW1 ([facility]) Outpatient Attender: Isai Blair MDAdmitter: Junaid Blair MD 07A-ONCCACTR 12/04/2020 12:00:00 AM EDT - 12/04/2020 11:47:27 AM EDT [facility] Unknown [address] [facility] [address] 12/03/2020 12:00:00 AM EDT eCW1 ([facility]) Outpatient Attender: Bryson Guzman PH.D., M.D. Loida/Ozona/A ngel/Reindl 12/02/2020 08:30:00 AM EDT MEDENT ([facility], ) Outpatient [address] [facility] [address] 12/02/2020 12:00:00 AM EDT eCW1 ([facility]) Unknown [address] [facility] [address] 12/01/2020 12:00:00 AM EDT eCW1 ([facility]) Unknown [address] [facility] [address] 11/30/2020 12:00:00 AM EDT eCW1 ([facility]) Outpatient Attender: Bryson Guzman PH.D., MMarielos. Loida/Ozona/A ngel/Reindl 11/19/2020 10:45:00 AM EDT MEDENT ([facility], ) Outpatient Admitter: Daniel La MDReferrer: Daniel La MD 11/11/2020 12:00:00 AM EDT Unspecified B-cell lymphoma, unspecified site [facility] Unspecified B-cell lymphoma, unspecified site Outpatient Attender: Alec Mariscal/Ozona/Marty/Re indl 10/09/2020 10:30:00 AM EDT MEDENT ([facility] Outpatient Attender: Alec Mariscal/Ozona/Marty/Re indl 09/22/2020 01:30:00 PM EDT MEDENT ([facility]) Outpatient Attender: Osiris Barclay FNPReferrer: Osiris PRECIADO SJP .EUGENE-SJP.EUGENE 09/12/2020 02:15:18 PM EDT - 09/12/2020 03:16:06 PM EDT [facility] Outpatient Attender: Osiris Barclay FNPReferrer: Osiris PRECIADO SJP .EUGENE-SJP.EUGENE 09/12/2020 12:00:00 AM EDT - 09/12/2020 03:29:17 PM EDT [facility] Outpatient Attender: Walt Mariscal/Ozona/Marty/R eindl 09/09/2020 10:30:00 AM EDT MED[facility] ([facility]) Unknown [address] [facility] [address] 09/05/2020 12:00:00 AM EDT eCW1 ([facility]) Outpatient Attender: Osiris CURIELP.EUGENE-SJP.EUGENE 10:22:45 AM EDT - 07/18/2020 11:47:40 AM EDT [facility] Office Visit Attender: Alec Mariscal/Ozona/Marty/Re indl 07/04/2020 11:15:00 AM EDT MEDENT ([facility]) Outpatient Attender: Walt Mariscal/Ozona/Marty/R eindl 06/26/2020 11:15:00 AM EDT MEDENT ([facility]) Office Visit Attender: Alec Mariscal/Ozona/Marty/Re indl 06/19/2020 09:00:00 AM EDT MEDENT ([facility]) Office Visit Attender: Alec Mariscal/Ozona/Marty/Re indl 06/11/2020 10:30:00 AM EDT MEDENT ([facility]) Unknown [address] [facility], [place] [address] 06/05/2020 12:00:00 AM EDT eCW1 ([facility]) Office Visit, Est Pt., Level 5 PC [address] [place] [address] 06/05/2020 12:00:00 AM EDT eCW1 ([facility]) Outpatient Attender: Alec Mariscal/Kimberly/Marty/Re indl 05/20/2020 09:45:00 AM EST MEDENT ([facility]) Outpatient Attender: Alec Mariscal/Kimberly/Marty/Re indl 05/07/2020 09:15:00 AM EST MEDENT ([facility]) Outpatient Attender: Alec Mariscal/Kimberly/Marty/Re indl 04/01/2020 08:30:00 AM EST MED[facility] ([facility] Unknown [address] [facility] [address] 04/01/2020 12:00:00 AM EST eCW1 ([facility]) Unknown [address] [facility] [address] 03/11/2020 12:00:00 AM EST eCW1 ([facility]) Unknown [address] [facility] [address] 03/10/2020 12:00:00 AM EST eCW1 ([facility]) Outpatient Attender: ROMA ovalle 03/04/2020 04:00:00 PM EST [facility] ([facility] Outpatient [address] [facility] [place] [address] 02/27/2020 12:00:00 AM EST eCW1 ([facility]) Outpatient Attender: Walt Mariscal/Kimberly/Marty/R eindl 02/18/2020 08:45:00 AM EST MED[facility] ([facility] Unknown [address] [facility] [address] 02/18/2020 12:00:00 AM EST eCW1 ([facility]) Unknown [address] [facility] [address] 02/13/2020 12:00:00 AM EST eCW1 ([facility]) Outpatient [address] [facility] [address] 02/12/2020 12:00:00 AM EST eCW1 ([facility]) Unknown [address] [facility] [address] 01/28/2020 12:00:00 AM EST eCW1 ([facility]) Unknown [address] [facility] [address] 01/28/2020 12:00:00 AM EST eCW1 ([facility]) Outpatient Attender: Osiris H[place] 0 12:00:00 AM EST - 01/15/2020 09:59:21 AM EST [facility] Office Visit, Est Pt., Level 3 PC [address] [place] [address] 01/01/2020 12:00:00 AM EDT eCW1 ([facility]) Unknown [address] [facility] [address] 12/31/2019 12:00:00 AM EDT eCW1 ([facility]) Outpatient Attender: Walt Mariscal/Kimberly/Marty/Beverly cristina 12/27/2019 11:15:00 AM EDT MEDENT ([facility] ) Immunizations Vaccine Date Status Description Data Source(s) influenza, recombinant, quadrIvalent,injectable, prese rvative free 12/23/2020 12:16:00 PM EDT completed eCW1 ([facility]) influenza, recombinant, quadrIvalent,injectable, prese rvative free 12/23/2020 12:16:00 PM EDT completed eCW1 ([facility]) influenza, recombinant, quadrIvalent,injectable, prese rvative free 12/23/2020 12:16:00 PM EDT completed eCW1 ([facility]) influenza, recombinant, quadrIvalent,injectable, prese rvative free 12/23/2020 12:16:00 PM EDT completed [facility] ([facility]) COVID-19 VACCINE Julio 07/25/2020 12:00:00 AM EDT completed [facility] Vaccine Series Complete: YESThis Data wa s Submitted to [facility]. Medications Medication Brand Name Start Date Product [...] AM EDT active Voriconazole 200 MG eCW1 ([facility]) voriconazole 200 MG Oral Tablet Voriconazole 200 MG Voricona zole 200 MG 12/02/2020 12:00:00 AM EDT active Voriconazole 200 MG eCW1 ([facility]) voriconazole 200 MG Oral Tablet Voriconazole 200 MG Voricona zole 200 MG 12/02/2020 12:00:00 AM EDT active Voriconazole 200 MG eCW1 ([facility]) 10 mg 10/10/2020 12:00:00 AM EDT [...] 10/10/2020 12:00:00 AM EDT ORAL completed MEDENT ([facility], ) 250 mg 10/09/2020 12:00:00 AM EDT tablet 14 TAKE ONE TABLET BY MOUTH EVERY DAY FOR 14D AYS TAKE ONE TABLET BY MOUTH EVERY DAY FOR 14D AYS SOLD: [facility] Levofloxacin 250 MG Oral Tablet Levofloxacin 10/09/2020 12:00:00 AM E DT ORAL completed MEDENT ([facility], ) 250 mg 10/09/2020 12:00:00 [...] 12:00: 00 AM EDT ORAL completed MEDENT ([facility], ) Mupirocin 20 MG/ML Topical Cream Mupirocin Calcium 09/22/2020 12:00 :00 AM EDT completed MEDENT ([facility], ) 25 mg 09/17/2020 12:00:00 AM EDT [...] tablet (12.5 mg total) by mouth daily [facility] Hypertension, essential Simvastatin 40 MG Oral Tablet simvastatin (ZOCOR) 40 M G tablet simvastatin (ZOCOR) 40 MG tablet 09/04/2020 12:00:00 AM EDT active TAKE ONE TABLET BY MOUTH NIGHTLY [facility] Cefuroxime 500 MG Oral Tablet Cefuroxime Axetil 08/21/2020 12:00:00 A M EDT ORAL completed MEDENT ([facility], ) Prednisone 10 MG Oral Tablet Prednisone 08/21/2020 12:00:00 AM EDT ORAL completed MEDENT ([facility], ) 10 mg 08/21/2020 12:00:00 AM [...] CPAP 07/18/2020 12:00:00 AM EDT active MEDENT ([facility], ) Lisinopril 40 MG Oral Tablet lisinopril (PRINIVIL,ZEST RIL) 40 MG tablet lisinopril (PRINIVIL,ZESTRIL) 40 MG tablet 06/18/2020 12:00:00 AM EDT active Hypertension, essential TAKE ONE TABLET BY MOUTH DAILY [facility] Hypertension, essential 20 mg 05/20/2020 12:00:00 AM EST tablet 14 TAKE ONE TABLET BY MOUTH TWICE A DAY FOR 7 DAYS PRIOR TO SURGERY TAKE ONE TABLET BY MOUTH TWICE A DAY FOR 7 DAYS PRIOR TO SURGERY SOLD: 05/28/2020 [facility] Prednisone 20 MG Oral Tablet Prednisone 05/20/2020 12:00:00 AM EST ORAL completed MEDENT ([facility], ) 875-125 mg 05/20/2020 12:00:00 AM [...] 04/01/2020 12:00:00 AM EST ORAL completed MEDENT ([facility], ) Amoxicillin 500 MG / Clavulanate 125 MG Oral Tablet [Augment in] Augmentin 03/16/2020 12:00:00 AM EST ORAL completed MEDENT ([facility], ) 500-125 mg 03/16/2020 12:00:00 AM EST tablet 20 TAKE ONE TABLET BY MOUTH TWICE A DAY FOR 10 DAYS TAKE ONE TABLET BY MOUTH TWICE A DAY FOR 10 DAYS SOLD: 03/17/2020 [facility] Aspir-Low 81 MG UNK 03/11/2020 12:00:00 AM EST 1.0 {tablet} active Aspir-Low 81 MG eCW1 ([facility]) 10 mg 03/11/2020 12:00:00 AM EST [...] FOR 4 DAYS THEN STOP SOLD: 03/11/2020 [facility] Prednisone 10 MG Oral Tablet Prednisone 03/11/2020 12:00:00 AM EST ORAL completed MEDENT ([facility], ) Aspir-Low 81 MG UNK 03/11/2020 12:00:00 AM EST 1.0 {tablet} active Aspir-Low 81 MG eCW1 ([facility]) Aspir-Low 81 MG UNK 03/11/2020 12:00:00 AM EST 1.0 {tablet} active Aspir-Low 81 MG eCW1 ([facility]) Aspir-Low 81 MG UNK 03/11/2020 12:00:00 AM EST 1.0 {tablet} active Aspir-Low 81 MG eCW1 ([facility]) Prednisone 20 MG Oral Tablet Prednisone 03/04/2020 12:00:00 AM EST active MEDENT ([facility]) 20 mg 03/04/2020 12:00:00 AM EST tablet 10 TAKE ONE TABLET BY MOUTH TWICE A DAY FOR 5 DAYS TAKE ONE TABLET BY MOUTH TWICE A DAY FOR 5 DAYS SOLD: 2019 [facility] Doxycycline Monohydrate 100 MG Oral Capsule Doxycycline [place] hydrate 100 MG 02/18/2020 12:00:00 AM EST 1.0 {capsule} active Doxycycline Monohydrate 100 MG eCW1 ([facility]) Doxycycline Monohydrate 100 MG Oral Capsule Doxycycline [place] hydrate 100 MG 02/18/2020 12:00:00 AM EST 1.0 {capsule} suspend ed Doxycycline Monohydrate 100 MG eCW1 ([facility]) Doxycycline Monohydrate 100 MG Oral Capsule Doxycycline [place] hydrate 100 MG 02/18/2020 12:00:00 AM EST 1.0 {capsule} active Doxycycline Monohydrate 100 MG eCW1 ([facility]) Doxycycline Monohydrate 100 MG Oral Capsule Doxycycline [place] hydrate 100 MG 02/18/2020 12:00:00 AM EST 1.0 {capsule} suspend ed Doxycycline Monohydrate 100 MG eCW1 ([facility]) Doxycycline Monohydrate 100 MG Oral Capsule Doxycycline [place] hydrate 100 MG 02/18/2020 12:00:00 AM EST 1.0 {capsule} active Doxycycline Monohydrate 100 MG eCW1 ([facility]) Doxycycline Monohydrate 100 MG Oral Capsule Doxycycline [place] hydrate 100 MG 02/18/2020 12:00:00 AM EST 1.0 {capsule} active Doxycycline Monohydrate 100 MG eCW1 ([facility]) Doxycycline Monohydrate 100 MG Oral Capsule Doxycycline [place] hydrate 100 MG 02/18/2020 12:00:00 AM EST 1.0 {capsule} active Doxycycline Monohydrate 100 MG eCW1 ([facility]) Doxycycline Monohydrate 100 MG Oral Capsule Doxycycline [place] hydrate 100 MG 02/18/2020 12:00:00 AM EST 1.0 {capsule} active Doxycycline Monohydrate 100 MG eCW1 ([facility]) 100 mg 02/18/2020 12:00:00 AM EST capsule 20 TAKE ONE CAPSULE BY MOUTH TWICE A DAY FOR 10 DAYS TAKE ONE CAPSULE BY MOUTH TWICE A DAY FOR 10 DAYS SOLD : 02/23/2020 [facility] Doxycycline Monohydrate 100 MG Oral Capsule Doxycycline [place] hydrate 100 MG 02/18/2020 12:00:00 AM EST 1.0 {capsule} active Doxycycline Monohydrate 100 MG eCW1 ([facility]) Doxycycline Monohydrate 100 MG Oral Capsule Doxycycline [place] hydrate 100 MG 02/18/2020 12:00:00 AM EST 1.0 {capsule} active Doxycycline Monohydrate 100 MG eCW1 ([facility]) Doxycycline Monohydrate 100 MG Oral Capsule Doxycycline [place] hydrate 100 MG 02/18/2020 12:00:00 AM EST 1.0 {capsule} active Doxycycline Monohydrate 100 MG eCW1 ([facility]) Doxycycline Monohydrate 100 MG Oral Capsule Doxycycline [place] hydrate 100 MG 02/18/2020 12:00:00 AM EST 1.0 {capsule} active Doxycycline Monohydrate 100 MG eCW1 ([facility]) Doxycycline Monohydrate 100 MG Oral Capsule Doxycycline [place] hydrate 100 MG 02/18/2020 12:00:00 AM EST 1.0 {capsule} active Doxycycline Monohydrate 100 MG eCW1 ([facility]) Doxycycline Monohydrate 100 MG Oral Capsule Doxycycline [place] hydrate 100 MG 02/18/2020 12:00:00 AM EST 1.0 {capsule} suspend ed Doxycycline Monohydrate 100 MG eCW1 ([facility]) Sulfamethoxazole 800 MG / Trimethoprim 160 [...] active Bactrim DS 800-160 MG eCW1 ( [facility]) Trazodone Hydrochloride 50 MG Oral Tablet traZODone HC l 50 MG traZODone HCl 50 MG 01/28/2020 12:00:00 AM EST 1.0 {tablet_at_bedtime_as_needed} active traZODone HCl 50 MG eCW1 ([facility]) Trazodone Hydrochloride 50 MG Oral Tablet traZODone HC l 50 MG traZODone HCl 50 MG 01/28/2020 12:00:00 AM EST 1.0 {tablet_at_bedtime_as_needed} active traZODone HCl 50 MG eCW1 ([facility]) Trazodone Hydrochloride 50 MG Oral Tablet traZODone HC l 50 MG traZODone HCl 50 MG 01/28/2020 12:00:00 AM EST 1.0 {tablet_at_bedtime_as_needed} active traZODone HCl 50 MG eCW1 ([facility]) Trazodone Hydrochloride 50 MG Oral Tablet TraZODone HC l 50 MG TraZODone HCl 50 MG 01/28/2020 12:00:00 AM EST 1.0 {tablet_at_bedtime_as_needed} active TraZODone HCl 50 MG eCW1 ([facility]) Trazodone Hydrochloride 50 MG Oral Tablet traZODone HC l 50 MG traZODone HCl 50 MG 01/28/2020 12:00:00 AM EST 1.0 {tablet_at_bedtime_as_needed} active traZODone HCl 50 MG eCW1 ([facility]) Trazodone Hydrochloride 50 MG Oral Tablet TraZODone HC l 50 MG TraZODone HCl 50 MG 01/28/2020 12:00:00 AM EST 1.0 {tablet_at_bedtime_as_needed} active TraZODone HCl 50 MG eCW1 ([facility]) Trazodone Hydrochloride 50 MG Oral Tablet traZODone HC l 50 MG traZODone HCl 50 MG 01/28/2020 12:00:00 AM EST 1.0 {tablet_at_bedtime_as_needed} active traZODone HCl 50 MG eCW1 ([facility]) Trazodone Hydrochloride 50 MG Oral Tablet TraZODone HC l 50 MG TraZODone HCl 50 MG 01/28/2020 12:00:00 AM EST 1.0 {tablet_at_bedtime_as_needed} active TraZODone HCl 50 MG eCW1 ([facility]) Trazodone Hydrochloride 50 MG Oral Tablet TraZODone HC l 50 MG TraZODone HCl 50 MG 01/28/2020 12:00:00 AM EST 1.0 {tablet_at_bedtime_as_needed} active TraZODone HCl 50 MG eCW1 ([facility]) Trazodone Hydrochloride 50 MG Oral Tablet traZODone HC l 50 MG traZODone HCl 50 MG 01/28/2020 12:00:00 AM EST 1.0 {tablet_at_bedtime_as_needed} active traZODone HCl 50 MG eCW1 ([facility]) Trazodone Hydrochloride 50 MG Oral Tablet TraZODone HC l 50 MG TraZODone HCl 50 MG 01/28/2020 12:00:00 AM EST 1.0 {tablet_at_bedtime_as_needed} active TraZODone HCl 50 MG eCW1 ([facility]) Trazodone Hydrochloride 50 MG Oral Tablet traZODone HC l 50 MG traZODone HCl 50 MG 01/28/2020 12:00:00 AM EST 1.0 {tablet_at_bedtime_as_needed} active traZODone HCl 50 MG eCW1 ([facility]) Trazodone Hydrochloride 50 MG Oral Tablet TraZODone HC l 50 MG TraZODone HCl 50 MG 01/28/2020 12:00:00 AM EST 1.0 {tablet_at_bedtime_as_needed} active TraZODone HCl 50 MG eCW1 ([facility]) Trazodone Hydrochloride 50 MG Oral Tablet TraZODone HC l 50 MG TraZODone HCl 50 MG 01/28/2020 12:00:00 AM EST 1.0 {tablet_at_bedtime_as_needed} active TraZODone HCl 50 MG eCW1 ([facility]) Trazodone Hydrochloride 50 MG Oral Tablet TraZODone HC l 50 MG TraZODone HCl 50 MG 01/28/2020 12:00:00 AM EST 1.0 {tablet_at_bedtime_as_needed} active TraZODone HCl 50 MG eCW1 ([facility]) Trazodone Hydrochloride 50 MG Oral Tablet traZODone HC l 50 MG traZODone HCl 50 MG 01/28/2020 12:00:00 AM EST 1.0 {tablet_at_bedtime_as_needed} active traZODone HCl 50 MG eCW1 ([facility]) Trazodone Hydrochloride 50 MG Oral Tablet traZODone HC l 50 MG traZODone HCl 50 MG 01/28/2020 12:00:00 AM EST 1.0 {tablet_at_bedtime_as_needed} active traZODone HCl 50 MG eCW1 ([facility]) Trazodone Hydrochloride 50 MG Oral Tablet TraZODone HC l 50 MG TraZODone HCl 50 MG 01/28/2020 12:00:00 AM EST 1.0 {tablet_at_bedtime_as_needed} active TraZODone HCl 50 MG eCW1 ([facility]) Trazodone Hydrochloride 50 MG Oral Tablet TraZODone HC l 50 MG TraZODone HCl 50 MG 01/28/2020 12:00:00 AM EST 1.0 {tablet_at_bedtime_as_needed} active TraZODone HCl 50 MG eCW1 ([facility]) Trazodone Hydrochloride 50 MG Oral Tablet TraZODone HC l 50 MG TraZODone HCl 50 MG 01/28/2020 12:00:00 AM EST 1.0 {tablet_at_bedtime_as_needed} active TraZODone HCl 50 MG eCW1 ([facility]) Trazodone Hydrochloride 50 MG Oral Tablet traZODone HC l 50 MG traZODone HCl 50 MG 01/28/2020 12:00:00 AM EST 1.0 {tablet_at_bedtime_as_needed} active traZODone HCl 50 MG eCW1 ([facility]) Simvastatin 40 MG Oral Tablet simvastatin (ZOCOR) 40 M G tablet simvastatin (ZOCOR) 40 MG tablet 01/09/2020 12:00:00 AM EDT 40 mg Oral aborted Take 1 tablet (40 mg total) by mouth nightly [facility] Levofloxacin 500 MG Oral Tablet Levofloxacin 500 MG 01/01/2020 1 2:00:00 AM EDT 1.0 {tablet} active Levofloxaci n 500 MG eCW1 ([facility]) Levofloxacin 500 MG Oral Tablet Levofloxacin 500 MG 01/01/2020 1 2:00:00 AM EDT 1.0 {tablet} active Levofloxaci n 500 MG eCW1 ([facility]) 500 mg 01/01/2020 12:00:00 AM EDT tablet 10 TAKE ONE TABLET BY MOUTH EVERY DAY FOR 10 DAYS TAKE ONE TABLET BY MOUTH EVERY DAY FOR 10 DAYS SOLD: 020 [facility] Levofloxacin 500 MG Oral Tablet Levofloxacin 500 MG 01/01/2020 1 2:00:00 AM EDT 1.0 {tablet} active Levofloxaci n 500 MG eCW1 ([facility]) Levofloxacin 500 MG Oral Tablet Levofloxacin 500 MG 01/01/2020 1 2:00:00 AM EDT 1.0 {tablet} suspended Levofloxa analia 500 MG eCW1 ([facility]) Levofloxacin 500 MG Oral Tablet Levofloxacin 500 MG 01/01/2020 1 2:00:00 AM EDT 1.0 {tablet} active Levofloxaci n 500 MG eCW1 ([facility]) Cefuroxime 500 MG Oral Tablet Cefuroxime Axetil 12/27/2019 12:00:00 A M EDT ORAL completed [facility] ([facility], ) 500 mg 12/27/2019 12:00:00 [...] tablet (40 mg total) by mouth daily [facility] Hypertension, essential Hydrochlorothiazide 12.5 MG Oral Tablet hydrochlorothiazide (HYDRODIURIL) 12.5 MG tablet hydrochlorothiazide (HYDRODIURIL) 12.5 MG tablet 08/06 12:00:00 AM EDT 12.5 mg Oral aborted Hypertension, essential Take 1 tablet (12.5 mg total) by mouth daily [facility] Hypertension, essential doxycycline hyclate 100 MG [...] to walsh Policy Walsh Plan Information [employer] [id number] SP [id number] [employer] PPO 2 [id number] 1 [id number] Tpa/[place] [employer] () Workers Compensation [id number] Self [id number] [employer] () Workers Compensation [id number] Self UMR U [id number] Self [id number] UMR [id number] xxxxxxxx [id number] MEDICARE [id number] xxxxxxxxxxx [id number] UMR [id number] Fabi [id number] MEDICARE [id number] Fabi [id number] Q10 MEDICARE A [id number] Self [id number] [id number] [employer] (pr) Commercial [id number] Self [employer] PPO O [id number] S [id number] [employer] Commercial [id number] Self [employer] C1 [id number] SELF PAY 2 UNAVAILABLE 1 UNAVAILA BLE Umr Commercial [id number] Self [id number] MEDICARE [id number] SP [id number] Q10 SELF PAY ONLY [id number] SP [id number] UMR O [id number] S [id number] MEDICARE C [id number] S [id number] Q10 Umr/Uhc/[employer] Medigap Part B [id number] Self [id number] Medicare Natl Gov't Servi Medicare Primary [id number] Self [id number] [employer] Medigap Part B [id number] 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, 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, extranodal and solid organ sites Diagnosis 01/01/2021 11:54:06 AM EDT [facility] 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, unspecified site Unspecified B-cell lymphoma, unspecified site Diagnosis 11/11/2020 12:00:00 PM EDT [facility] I10 Essential (primary) hypertension Essential (primary) h ypertension Diagnosis 09/12/2020 02:21:30 PM EDT [facility] R60.9 Edema, unspecified Edema, unspecified Diagnosis 04/2020 02:21:30 PM EDT [facility] R06.00 Dyspnea, unspecified Dyspnea, unspecified Diagnosis 09/12/2020 02:21:30 PM EDT [facility] I25.10 Atherosclerotic heart diseas e of [place] coronary artery without angina pectoris Atherosclerotic heart disease of [place] Diagnosis 09/12/2020 02:21:30 PM EDT [facility] 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, unspecif ied Rheumatic mitral valve disease, unspecif Diagnosis 09/12/2020 02:15:18 PM EDT [facility] E78.2 Mixed hyperlipidemia Mixed hyperlipidemia Diagnosis 07/18/2020 10:22:45 AM EDT [facility] Z95.5 Presence of coronary angioplasty implant and graft Presence of coronary angioplasty implant Diagnosis 07/18/2020 10:22:45 AM EDT [facility] R60.0 Localized edema Localized edema Diagnosis 07/18/2020 10:2 2:45 AM EDT [facility] Z23 [id number] Encounter for immunization Problem 12:00:00 AM EDT eCW1 ([facility]) G47.33 [id number] Obstructive sleep apnea Problem 12/02/2020 1 2:00:00 AM EDT eCW1 ([facility]) I25.10 [id number] Coronary artery dise ase involving [place] coronary artery of [place] heart without angina pectoris Problem 12/02/2020 12:00:00 AM EDT eCW1 ([facility]) 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 12/02/2020 12:00:00 AM EDT eCW1 ([facility]) B44.9 [id number] Aspergillosis Problem 12/02/2020 12:00:00 AM EDT eCW1 ([facility]) J32.0 [id number] Chronic maxillary sinusitis Problem 12/03/19 12:00:00 AM EDT eCW1 ([facility]) C85.91 [id number] Lymphoma of lymph nodes of head, unspecified lymphoma type Problem 12/02/2020 12:00:00 AM EDT eCW1 ([facility]) 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 Chronic fronto ethmoidal sinusitis Problem 11/19/2020 12:00:00 AM EDT [facility] ([facility]) Z95.1 Hx of CABG Hx of CABG [id number] 07/18/2020 12:00:00 AM ED T [facility] J47.9 [id number] Recurrent bronchiectasis Problem 06/05/2020 12:00:00 AM EDT eCW1 ([facility]) R73.01 [id number] IFG (impaired fasting glucose) Problem 06/05/2020 12:00:00 AM EDT eCW1 ([facility]) G47.33 [id number] BALAJI (obstructive sleep apnea) Problem 06/05/2020 12:00:00 AM EDT eCW1 ([facility]) J32.9 [id number] Chronic sinusitis, unspecified Problem 03/10/2020 12:00:00 AM EST eCW1 ([facility]) R79.89 [id number] Elevated LFTs Problem 02/27/2020 12:00:00 AM EST eCW1 ([facility]) Z12.11 [id number] Colon cancer screening Problem 02/19/2020 12 :00:00 AM EST eCW1 ([facility]) J32.1 [id number] Chronic frontal sinusitis Problem 02/12/2020 12:00:00 AM EST eCW1 ([facility]) J32.9 Chronic sinusitis Rhinosinusitis Problem 01/01/2020 12: 00:00 AM EDT eCW1 ([facility]) Surgeries/Procedures Procedure Description Date Indications Data Source(s) OFFICE OUTPATIENT VISIT 15 MINUTES 01/08/2021 12:00:00 AM EDT [facility] ([facility], ) Imm: Flublok Quadrivalent 18 years & older 0.5mL IM Influenz a 12/23/2020 12:00:00 AM EDT eCW1 ([facility]) Endoscopy Nasal/Sinus Surgical W/BX/Polypectomy/Debridement 12/09/2020 12:00:00 AM EDT [facility] ([facility], ) OFFICE OUTPATIENT VISIT 15 MINUTES 12/09/2020 12:00:00 AM EDT [facility] ([facility], ) Endoscopy Nasal/Sinus Surgical W/BX/Polypectomy/Debridement 12/02/2020 12:00:00 AM EDT [facility] ([facility], ) OFFICE OUTPATIENT VISIT 15 MINUTES 12/02/2020 12:00:00 AM EDT [facility] ([facility], ) Endoscopy Nasal/Sinus Surgical W/BX/Polypectomy/Debridement 11/19/2020 12:00:00 AM EDT [facility] ([facility]) OFFICE OUTPATIENT VISIT 25 MINUTES 11/19/2020 12:00:00 AM EDT [facility] ([facility]) Endoscopy Nasal Diagnostic 11/11/2020 12:00:00 AM EDT [facility] ([facility]) Endoscopy Nasal Diagnostic 10/27/2020 12:00:00 AM EDT [facility] ([facility]) Spirometry 10/10/2020 12:00:00 AM EDT M EDENT ([facility]) Plethysmography Determination Lung Volumes & Per Airway Resi st 10/10/2020 12:00:00 AM EDT [facility] ([facility]) DIFFUSING CAPACITY 10/10/2020 12:00:00 AM EDT [facility] ([facility]) OFFICE OUTPATIENT VISIT 15 MINUTES 10/09/2020 12:00:00 AM EDT [facility] ([facility]) Endoscopy Nasal Diagnostic 09/22/2020 12:00:00 AM EDT [facility] ([facility]) OFFICE OUTPATIENT VISIT 25 MINUTES 09/22/2020 12:00:00 AM EDT [facility] ([facility]) Spirometry 09/09/2020 12:00:00 AM EDT M EDENT ([facility]) OFFICE OUTPATIENT VISIT 25 MINUTES 09/09/2020 12:00:00 AM EDT [facility] ([facility]) OFFICE OUTPATIENT VISIT 15 MINUTES 06/26/2020 12:00:00 AM EDT [facility] ([facility]) Septoplasty/Submucous Resection Contour Or Replacement W/Gra ft 06/09/2020 12:00:00 AM EDT [facility] ([facility]) Endoscopy Nasal/Sinus Surgical W/ Ethmoidectomy Total 06/09/2020 12:00:00 AM EDT [facility] ([facility]) Endoscopy Nasal/Sinus Surgical Remove Tissue From Maxillary Sinus 06/09/2020 12:00:00 AM EDT [facility] ([facility]) OFFICE OUTPATIENT VISIT 15 MINUTES 05/20/2020 12:00:00 AM EST [facility] ([facility], ) BIOPSY INTRANASAL 05/12/2020 12:00:00 AM EST [facility] ([facility]) OFFICE OUTPATIENT VISIT 25 MINUTES 05/07/2020 12:00:00 AM EST [facility] ([facility]) Endoscopy Nasal Diagnostic 04/01/2020 12:00:00 AM EST [facility] ([facility]) OFFICE OUTPATIENT NEW 45 MINUTES 04/01/2020 12:00:00 A M EST [facility] ([facility]) Results ID Date Data Source [id number] 01/29/2021 08:49:18 PM EST [facility] Name Value Range Interpretation Code Description Data Kayley rce(s) Supporting Document(s) Progress Note [facility] QEJKEh5pHbEKFvIm73/CDHkrXPXyf0DmNObgQUn9JGlyHMMxA1AoAQN6uU1nHBO6XVaSYaXlRbTiHTH2 lbm [file] ICAgICAgICAgICAgICAgICAgICAgICAgICAgICAgICAgICAgICAgICAgICAgICAgICAgICAgDQogICAg ICAgICAgICAgICAgICAgICAgICAgICAgICAgICAgIC AgICAgICAgICAgICAgICAgICAgICAgICAgICAgICAgICAgICAgICAgICAgICAgICAgICAgICAgICAgIC AgICAgDQogICAgICAgICAgICAgICAgICAgICAgICAgICAgICAgICAgICAgICAgICAgICAgICAgICAgIC AgICAgICAgICAgICAgICAgICAgICAgICAgICAgICAg ICAgICAgICAgICAgICAgDQogICAgICAgICAgICAgICAgICAgICAgICAgICAgICAgICAgICAgICAgICAg ICAgICAgICAgICAgICAgICAgICAgICAgICAgICAgICAgICAgICAgICAgICAgICAgICAgICAgICAgDQog ICAgICAgICAgICAgICAgICAgICAgICAgICAgICAgIC AgICAgICAgICAgICAgICAgICAgICAgICAgICAgICAgICAgICAgICAgICAgICAgICAgICAgICAgICAgIC AgICAgICAgDQogICAgICAgICAgICAgICAgICAgICAgICAgICAgICAgICAgICAgICAgICAgICAgICAgIC AgICAgICAgICAgICAgICAgICAgICAgICAgICAgICAg ICAgICAgICAgICAgICAgICAgDQogICAgICAgICAgICAgICAgICAgICAgICAgICAgICAgICAgICAgICAg ICAgICAgICAgICAgICAgICAgICAgICAgICAgICAgICAgICAgICAgICAgICAgICAgICAgICAgICAgICAg DQogICAgICAgICAgICAgICAgICAgICAgICAgICAgIC AgICAgICAgICAgICAgICAgICAgICAgICAgICAgICAgICAgICAgICAgICAgICAgICAgICAgICAgICAgIC AgICAgICAgICAgDQogICAgICAgICAgICAgICAgICAgICAgICAgICAgICAgICAgICAgICAgICAgICAgIC AgICAgICAgICAgICAgICAgICAgICAgICAgICAgICAg ICAgICAgICAgICAgICAgICAgICAgDQogICAgICAgICAgICAgICAgICAgICAgICAgICAgICAgICAgICAg ICAgICAgICAgICAgICAgICAgICAgICAgICAgICAgICAgICAgICAgICAgICAgICAgICAgICAgICAgICAg YYWlKKs1C7acYGFjQTZzRG4mTPl7Yp9+DQoNCmVuZH Y3vgPxqO6WWM0to7QcIUgbWKPam9OsVTr2OR7WSKDbCCzrBC3CZYpoab7CFPQhPJHixVEIf0tqAfUuBE D1NWKtXowcVB7MKDYpY7ymkrBiNHHbRQMPCWpiFALZLYcaYMYJQEZxCNAiOdItYgPsQWOmLNOoYYFGNU 7YFkUnP7EumX00RZDXCa1+DQplbmRvYmoNCjMyIDAg a1VpLPg5ES8ZBZMcXbayy4MsEsSwQIDACJgpOZ5YSGI9HBJoGQLpPx6YLUXaU863awVzHQ9BQt0ZGeQu PW6iag3UHrVjSWYdJbxFUkj9DCnbTI6YrQUkOQhSwf3kocModqWFr2JnpjUlfEUSxMUuw5OxOMJGLZPz dAAkQNZEOJDrpKSzGZ5hEH4rDLOyGVKmVkKtUJKZEZ 7ZXXBxQHLijTTeXZCsUANISO2INIpwTDK5WWPfqlHvkPCtZEbwEK7ZYAGdfwZiFgQgKFXXNRs+Pg0KZW 2li7UaXJmvNGEkKA7djp8AKSaFIsAlF2O9nUDsG5K6TNtcDi0OTDWdTZVyIgHaTQFJRYazBA1KCU3zbm P4NW0SwXIySSPoZDLfsBOvDVs5V68pjIZxWSdjXW4N ICA+Pallavi+Ei0YSSGrYLCxRAKgJxBdAEUZNfQeY4EsW4OIv5VaX9LgGQ38kApqbpSiEWjuNY8PSK0rZUVr CVNSQR1YtGQbwQ7lmrNeUdJqYJSJHeQxR21kvAWiTYPlWSEzNGUnIt5JNZUqM8XpmxLsxEcnvlQgXPEh VBDKHG2YQTbctiHmeKFliCtoPO57nGssIM8NQe3VRi HhNX3izp4XgCVjLq2NGTJrQY8MXUVuRVZiRYYuQDM3LRDdDeUqREvnWANcNHCcJLZ8HBQdENChZD4JGn RhPGAeYDs6CwHpYSXbLBIdxh8JCUZnDGS6MYJ2MFGeXZVlNSLfRFniJCVuRFGdJJV1UBDgVVKjQO6SEl EsGJDrODO2JhPzAJLfTJZxax6YQLHrZHDwMkn2DtFy EBKwOOSxQEzpPTOcQUP8CAP6WRNwXBHeKG7LOcXlELLnDNo6YVLaWAJwGJXobp4WQKOhZOEhNSy3DyIv VNVkNZJtKYpsFCHzGJUsIZv2SBQnXPUcGW7EFaUhKPLlCIU8EzAyWZTdDAIapx6EXKBtYDXuVWDgENCu XULqQTEkGHquWZCqXZZ8UpF9HZMnHJBmWJ8INcUoZT ArZHz5DZLfMMRlJPPbdb9EDWNgIGXrPWYySJDvLTYrLDXtKNpdAINgOKAqNeRePPHgOWNhQG0ILkWgNE QjMjY2YkMrUVGnEMNuny2DJQHbLGLtXPm5IoGqZIQcWHQiLFvrSSCpRVNrQNGpIMSsVSJcBY3XIoAfFO JcYlJ7XPwpJXNkOEFztf5MJPHuFVCaGiMuHGEhUSKd VQViXAaqCBMzNXGtDtv3RVRoTEBgNP0AAfBlWNVaWNU4HiQoEMIqEHZwql5TBQNlNSA2AsL8QSHfSCTp UBNzDWkaBDZzSVC6Doz5GSOhPNTnSQ5YRiAaTYQdEVxoGRDsQPDeQEJrvu5FUBBeZBU0AgZ1TLHnJQNn MROpYWkvGMZvEGN9CvKqLRCgXJGdDO2AFgTlDWIdLB w5DpApSTAiNNFoho6EORWaUBB4ZMuaPZWjHINvRQJyCAtnURBnAJU7ARS9SHXeFUFlOU5EZxFdUJDeWX J9HTMgKGGsKKFmlo2CSZGlXRR2KTL2WxLnKKCwUCTxZWstODWvQWRuRDA0QTIgZRMiFA4XUaPzOFftTR GNQyn1YGmpQ2x2SSRtJM7BS7Ott2WsImLmRKOCUSex BL1vpwClXDGqMc0HG6fEKdghTzCkRaP0I8EzSFF6DCM3KFN3B0PsZfIvSPC2KgH9HR6fWXUvJlD3WqIi TMJ2Vqc7VgW6YsW7M6GaHfIdGDWoAsqkDjXkJM8KKv2HGgL1IFU9qWVhJe1IMNBjPzFFYmPvXW1LDHd= ID Date Data Source [id number] 01/23/2021 09:07:03 AM [facility] Name Value Range Interpretation Code Description Data Kayley rce(s) Supporting Document(s) Progress Note [facility] OWIDGt9tUoGZAuZv23/PNOjjCGKwi9NfKThlQZm0YVtcUIXeW5GyRJH9aN9dLSH1FMaEVfPjSxLwHWUj lbm [file] Jq8DZuC3YCS8gRSnBu2INYH0ITtLWtCbAL0AUIx= ID Date Data Source [id number] 01/21/2021 06:01:36 AM [facility] Name Value Range Interpretation Code Description Data Kayley rce(s) Supporting Document(s) Progress Note [facility] KZRAOq2vNtWRYbIn64/QMNssDLAwb4KeVKhxKIo3QXyiTYOaT9GvQXI6zN5aVKZ7FWwBClLaKeUfAWIy lbm WvJmxCUdTgDJLaFncIUsDjRJzuQwmryIHmTM0SmNG7VXJiD65hQYCaLLZhX8NlPDMhHAG+Fm5EUEYmwA YpDI1ELgbO0Z4wr1xM9RdX/tmBrcH3QNjW6SbkSLYvuJKeGacE4AlywpvTvgOV9NqFdcFY+9+Z5O3Dvr awxoEWO2RYrOsQworwhYiaaM0hVjn/g4nX9DbDMec/ m1+NOEraGli6T6CJ1fhVoRBSZVj6AH2aVuqP6eqMoo/Aiytx+YxMVHViqQ3MXkDvEDFETb70rue0z1pw Sbp+Fn1siXEAU/JPjIg2rrMpsNYC1vt/gicgrPiNAIySZ9jxv1r+n81pu9cdpMAFesb+l1OipdYSKiGd emjqMucjKzb6gEOJTorRGcwT2UxiFlBeSWC4aPM3PX sJkJzN0IFvVNK9BRYKAMxzzyOollvLEot9Yviy+0tKCI7Yt8aakFfMpphB18ojJ5PGj6yeOzqxIEgBpi HqAdzi9gkaKvAn79Ox7oD3aeG2MqF3FDV4LINrAbZ76NAoK0nOP7XRxcbr3whJnDj8JxRIIPrzwavSpE 1vUfN9ca+UBpZD3lltLOYfaE6wznwy3aoh3iQ4RynA swuCHD8oqdHC4ufRb2AvVoOYJfJTuP2Vke91ndAL1KTzjNSKxblHnYPhbG1ZTdD6Ccr3VQ7+12A9+Jerel [file] ErZ3JaGA7hIECRGb6+GKmxiQOkfMvvXUNIVkO4GcDfFViqULWXAq0L ID Date Data Source [id number] 01/15/2021 09:19:41 AM EDT [facility] Name Value Range Interpretation Code Description Data Kayley rce(s) Supporting Document(s) Leukocytes [#/volume] in Blood by Automated count 9.7 10*3/uL 4-10 [facility] Erythrocytes [#/volume] in Blood by Automated count 3.41 10*6/uL 4.6- 6.1 L [facility] Hemoglobin [Mass/volume] in Blood 10.9 g/dL 13.5-18 L [facility] Hematocrit [Volume Fraction] of Blood by Automated count 32.3 % 4 1-53 L [facility] Erythrocyte mean corpuscular volume [Entitic volume] by Auto mated count 94.8 fL 80-96 [facility] Erythrocyte mean corpuscular hemoglobin [Entitic mass] by Automated count 31.8 pg 27-33 [facility] Erythrocyte mean corpuscular hemoglobin concentration [Mass/volume] by Autom[facility] 33.6 g/[facility].0[facility] width [Ratio] by Automated count 13.9 % 11.5-14.5 [facility] Platelets [#/volume] in Blood by Automated count 342 10*3/uL 150-400 [facility] Differential cell count method - Blood [facility] Neutrophils/100 leukocytes in Blood by Automated count 65 % [facility] Lymphocytes/100 leukocytes in Blood by Automated count 17 % [facility] Monocytes/100 leukocytes in Blood by Automated count 17 % [facility] Eosinophils/100 leukocytes in Blood by Automated count 0 % [facility] Basophils/100 leukocytes in Blood by Automated count 1 % [facility] Neutrophils [#/volume] in Blood by Automated count 6.44 10*3/uL 1.8-7 .0 [facility] Lymphocytes [#/volume] in Blood by Automated count 1.60 10*3/uL 1.2-4 .0 [facility] Monocytes [#/volume] in Blood by Automated count 1.61 10*3/uL 0-0.8 H [facility] Eosinophils [#/volume] in Blood by Automated count 0.00 10*3/uL 0-0.5 [facility] Basophils [#/volume] in Blood by Automated count 0.05 10*3/uL 0-0.2 [facility] Nucleated erythrocytes/100 leukocytes [Ratio] in Blood by Automated count 0 /100{WBCs} 0-0 [facility] ID Date Data Source [id number] 01/15/2021 09:48:17 AM [facility] Value Range Interpretation Code Description Data Kayley rce(s) Supporting Document(s) Prothrombin time (PT) 13.3 s 11.6-14.0 [facility] INR in Platelet poor plasma by Coagulation assay 1.05 [facility] Routine intensity oral anticoagulation I NR is typically 2.0-3.0. Target INR must be clinically individualized. ID Date Data Source [id number] 01/15/2021 10:16:25 AM [facility] Value Range Interpretation Code Description Data Kayley rce(s) Supporting Document(s) Amylase [Enzymatic activity/volume] in Serum or Plasma 77 U/L 28- 103 [facility] ID Date Data Source [id number] 01/15/2021 10:16:25 AM [facility] Value Range Interpretation Code Description Data Kayley rce(s) Supporting Document(s) Lipase [Enzymatic activity/volume] in Serum or Plasma 83 U/L 13-6 0 H [facility] ID Date Data Source [id number] 01/15/2021 10:16:25 AM [facility] Value Range Interpretation Code Description Data Kayley rce(s) Supporting Document(s) Albumin [Mass/volume] in Serum or Plasma by Bromocresol green (BCG) dye binding method 3.9 g/dL 3.5-[facility].2 [facility] Bilirubin.total [Mass/volume] in Serum or Plasma 0.3 mg/dL <1.2 [facility] Calcium [Mass/volume] in Serum or Plasma 8.5 mg/dL 8.8-10.2 L [facility] Chloride [Moles/volume] in Serum or Plasma 99 mmol/L 98-107 [facility] Creatinine [Mass/volume] in Serum or Plasma 0.87 mg/dL 0.70-1.20 [facility] Glucose [Mass/volume] in Serum or Plasma 107 mg/dL 70-140 [facility] Alkaline phosphatase [Enzymatic activity/volume] in Serum or Plasma 107 U/L 40-129 [facility] Potassium [Moles/volume] in Serum or Plasma 4.5 mmol/L 3.4-5.1 [facility] Protein [Mass/volume] in Serum or Plasma 6.4 g/dL 6.4-8.3 [facility] Sodium [Moles/volume] in Serum or Plasma 137 mmol/L 136-145 [facility] Aspartate aminotransferase [Enzymatic activity/volume] in Serum or Plasma 33 U/L <40 [facility] Urea nitrogen [Mass/volume] in Serum or Plasma 8 mg/dL 8-23 [facility] Osmolality of Serum or Plasma by calculation 283 mosm/kg 275-300 [facility] Creatinine/Urea nitrogen [Mass Ratio] in Serum or Plasma 9 [facility] Bicarbonate [Moles/volume] in Serum 28 mmol/L 22-29 [facility] Alanine aminotransferase [Enzymatic activity/volume] in Seru m or Plasma 38 U/L <41 [facility] Anion gap 3 in Serum or Plasma 10 mmol/L 8-15 [facility] Glomerular filtration rate/1.73 sq M pre dicted among non-blacks [Volume Rate/Area] in Serum or Plasma by Creatinine-based formula (MDRD) 87 mL/min/1.73m2 >60 [facility] Glomerular filtration rate/1.73 sq M pre dicted among blacks [Volume Rate/Area] in Serum or Plasma by Creatinine-based formula (MDRD) >60 [facility] ID Date Data Source [id number] 01/15/2021 10:16:25 AM EDT [facility] Name Value Range Interpretation Code Description Data Kayley rce(s) Supporting Document(s) Triglyceride [Mass/volume] in Serum or Plasma 81 mg/dL <150 [facility] ID Date Data Source [id number] 01/15/2021 10:16:25 AM [facility] Value Range Interpretation Code Description Data Kayley rce(s) Supporting Document(s) Thyrotropin [Units/volume] in Serum or Plasma 0.750 u[IU]/mL 0.270-4. 200 [facility] ID Date Data Source [id number] 01/08/2021 05:22:53 PM EDT [facility] Name Value Range Interpretation Code Description Data Kayley rce(s) Supporting Document(s) Progress Note [facility] HWMTEq5qHhXWRtLu54/NMBgxHDZsc3MpLJxkZXa1IVmbLYAsR8YfCOM6vN9lPXF0LQjMTsEpVrEeFBK7 lbm [file] AgICAgICAgICAgICAgICAgICAgICAgICAgICAgICAgICAgICAgICAgICAgICAgICAgICAgICAgICAgIC AgICAgICAgICAgICAgICAgICAgICAgICAgICAgDQogICAgICAgICAgICAgICAgICAgICAgICAgICAgIC AgICAgICAgICAgICAgICAgICAgICAgICAgICAgICAg ICAgICAgICAgICAgICAgICAgICAgICAgICAgICAgICAgICAgICAgDQogICAgICAgICAgICAgICAgICAg ICAgICAgICAgICAgICAgICAgICAgICAgICAgICAgICAgICAgICAgICAgICAgICAgICAgICAgICAgICAg ICAgICAgICAgICAgICAgICAgICAgDQogICAgICAgIC AgICAgICAgICAgICAgICAgICAgICAgICAgICAgICAgICAgICAgICAgICAgICAgICAgICAgICAgICAgIC AgICAgICAgICAgICAgICAgICAgICAgICAgICAgICAgDQogICAgICAgICAgICAgICAgICAgICAgICAgIC AgICAgICAgICAgICAgICAgICAgICAgICAgICAgICAg ICAgICAgICAgICAgICAgICAgICAgICAgICAgICAgICAgICAgICAgICAgDQogICAgICAgICAgICAgICAg ICAgICAgICAgICAgICAgICAgICAgICAgICAgICAgICAgICAgICAgICAgICAgICAgICAgICAgICAgICAg ICAgICAgICAgICAgICAgICAgICAgICAgDQogICAgIC AgICAgICAgICAgICAgICAgICAgICAgICAgICAgICAgICAgICAgICAgICAgICAgICAgICAgICAgICAgIC AgICAgICAgICAgICAgICAgICAgICAgICAgICAgICAgICAgDQogICAgICAgICAgICAgICAgICAgICAgIC AgICAgICAgICAgICAgICAgICAgICAgICAgICAgICAg ICAgICAgICAgICAgICAgICAgICAgICAgICAgICAgICAgICAgICAgICAgICAgDQogICAgICAgICAgICAg ICAgICAgICAgICAgICAgICAgICAgICAgICAgICAgICAgICAgICAgICAgICAgICAgICAgICAgICAgICAg ICAgICAgICAgICAgICAgICAgICAgICAgICAgDQogIC AgICAgICAgICAgICAgICAgICAgICAgICAgICAgICAgICAgICAgICAgICAgICAgICAgICAgICAgICAgIC PqEHDbJBOrHPUyQEWaYBSvBYLiSLPsZWYcOCIkMHTcQEUpRLGgRPw8O7pzHQDqALJyZB7iWDh8Lg7+DQ tLAhNsVTU2tcFwqG8OMK1kg5CeOFaaKKRhc4QgBGa4 SL9VCVOjKIchIW8DGXrtdq9TIHPkGRXmhWEQb4rqIsMqGDD4CIEhCtjjOX0ITKNqM7oixxOsPTCxJXCV XWtsLCXSWIMkBDZkUxTmZnUxJZStELQoTYMQGQQ5NLFmQeZmYTanJT0Yg3QusGN9UFv+Eu1SZD0wt9Il DMedEPHaOV1kxt4MYLnIDkAxK5MxisK8KWS7SNJsHg 0NCHSqQQQixYImQWWkJQSJRqXvE6XnhP09MHFWBv1+AAxcypYvPybJOhL5BBZnp1WtQVl5TH8CAQKaTD u1pVGgWZNoQ0Tsz5HjSx83IXStOldqNxrte4wnwdXvLUAdqCcdWGdaIBJqTUAdMVEqWpzhPzMkZXSuTn akIANLLVeILyYaF7Dvb6CrEiN8MAKzVvEoEJkeGSJk YyF0XT86wXmbJG0TGTJsEEJoJK59ECV5VKJwEc5AUv0QKyJjKW1fnp3TIjGqZT4erp8IXZlOXlDlX0A1 nIEpA7Knjn21ID3VpON2jODzMZ4IgA3cIG7Ec3JpUFLrClWbHBZjRQVoNHQfBSYqTaQbRG1YBRIfXlEd zKGrGTHxZrdvHYHtSzBiGnFeHK8OUPDtCDY6MF6QQS 4KZodfP9WYLKrnuCjmJhRTMGI/WIDDSWEYRKqxDLHoL93WE2YBOWpFCuiiWYkIFkecLy2tAWy+Pg0KZW 9cw1WsIRm4WLQpDN8bie6WDVyHYrDjY8R4hNXdJ5V0NZsvIu2OHXRaCOXuYwUiXWAZXDxpUD9ZGJ4wxh L3QF2ClLZjELGkBUTfzXExNWw2Z15ywRMfVJowSE5K ICA+Pallavi+Vc8WTWUjKWLlSCOeSgWmMSSQPtXiP0XvU0HEj1MpM2DaRW52pTfsuvLvTBspEZ9JFT0cVMMo NBEXOR2RwGMhiY2datVyNCRbYTXWEeOdB67mgBDvSWGkEMM1LDElLe8TOIIwY4TxkjScwAeiqkBwADCh PMUIRK2VVYwdhpIeaOLmeGokRM16cKqqHZ0BHg2XAt OjVJ3zru9UvTGkPq1UPCO9CE4NNZOsJLVmCWQoTWZ8XTOlWlTpZMzcVIMxUSLhEXB7VWFrYFOqLZ1WDe IgEZAoEWO7DnadJDZpMZEcmi2YQRTeBBX6QTVbBPHjBMViQCVuPGagJEJwGCQkRKY2GGMqQQVvPV5SIz WbSHWiULQ5HVaeWTZtZJLqah4BAEXfSFI0INu3VUQs NLQcKHDyQLjxDTWyQTGqQzg7EZErSKSvYW4BOvIoSEEkSVozUvOhFHWuXBAobj8BGOPkNDEaHFNeDSIo RBTaIYLlLYjcBUBvMONwOBZrEGUsEVNjIC6BWbCxOEQpECL6QUNkITPwBJJgbn1AOEGgBIYuCAEjOoGo SGKvMHJfGMbyDUWuPKW4ENSsTRPoBBWaNR0NXpRbOR DhUNr3EBKhMQDoVARvcr1CRYMhKQReAdh3XjXhWCAgDMWeSVdmMKSxIAX8MzbsQKTyJSEcCR5TTqMzNG OlUOe9ZDZrFVDsKXGcqf6WSLEvTLEyINg7ZlSdZHNsJXWnGAmoIZLmWNGbCXMsYKXwTVAhGX3LGpNiGA QsPpEwKqIjDRZqETKqov8BLIMjPBKuRPA0JFYuKZBd NRSpDYhfHNZnKJBqAqx6QDBiDNSrTJ6ZGsMnTXZcSfX9BtFcYLDiOURrpb3CEKDfYGW5JSR0AIObRARx VNVwVLjmEMMgIUB3ApY7QQXiJNBmNG7RByTqPPPeCFC2NxBfUXOvCPRyqx7HNZMdCER1BKFvXXQvWDVm ANIxEPjvJVFbBLV4Qca7ZIRhECIcMN2HTrNxFWXrQN E1VByrGNEvYFKeql2KLBXsXER9RqqaXaSsNLEwCEMlVYujAPWwVRO2TGm4VWDxJFWuOL5LOmYcVLNjOV S6PTUaSJEjKPVzoh2NKBEwXZK7TrP5NYYpKZXjPDFoJAkpFFHeUFDhZvhdOYTbOHLaSE3KHsNzQGJtOQ B2NEEhOFXgNFMake6FUVDzNWL2Cjj6AnPqPCTsVBEs HPidUFPeJOUsPFbfUQEjGTGqSB2SHpKuXOEaLNJ7LoHuERAnJMWdmw8FQIMnCWV4OQvaNrCeOIReCISp PQwpGLVqGMG9OFVpYRUcHOUvOR8UQwQvQRbzHGZXWof9CAggF3q6TDD8LT9NX3Pgq7TxASVvNTCZPBqo BS8lxaEaQIQrZq3CM7xTAxf7KDE2OMTkRHReH7PrAZ PnPhB0TFc4KTzfKdU7LCS6HI6qPEzwLuJ2YQKwZqR6DAE5GNVoPSE4ZwI1KhA5XkUfJcfaKnIrCL9RBg 8OWdP0UPH4oQNaCq0DFVUqXCCVBhWvVZ3OLNd= ID Date Data Source [id number] 01/01/2021 01:03:[address] [facility] Name Value Range Interpretation Code Description Data Kayley rce(s) Supporting Document(s) Progress Note [facility] XQEBJi6vAqGNCqZz73/JZSvlALVqc4XnSEgnREw1BIkkVKLmL7SeFQJ5tY8wWLB1BGyQOmWuGmPePOYx lbm OlUtcTJfKwZLTgZojOBiFqYStkTbkbjALbHA6RwZE1MKJnO71eODBdPZBxI7EyBDHkKJH+Xt1BZVNhxF XcIN0NVniF4Q4do2mTZw3vmX5udcRNF6ea5iHyUPlXukfohWSgivKf63tytlUy65mS92C8/u32ouLG8V bn8tXfbA2FSMWoM5Yvjo8IsKVfEQy//isGvmtZlsj+ bH/1QyWuZ+AVtjM3SSxqm2C/skHkBmUFll/ckP5qy/r2FHoPhgjZHWwU8X39oFeYyuUPswLY4veBz1L2 Tuarp+NaRg7Z5wa4Jg02Vr+8EHYY+Ylm7e6whip+T9uRuwrl2OdRv+UI4ivzBPjWkAR95T9wgGDa9co8 nyJOJkEke3oc64j8QUb+kouYOwRh1DqnI8KJN8YPHF NxY5Z/pohWOcXtvMWGp4QSfhqFDiaH8CfYjc+Caleb/fKB8tzTl0G3bP3h3spO2N48fVdgwJDjgdh4vpTe [file] glass carrier/keaj+TZ4ig1FF4QTFAXlxe0YKHr9/zCLjnHhayIjJrgAa2miPBHcIFhVxxwPiRL+lbzOrlxhVPEtd [file] AgICAgICAgICAgICAgICAgICAgICAgICAgICAgICAgICAgICAgICAgICAgICAgICAgICAgICAgICAgIC AgICANCiAgICAgICAgICAgICAgICAgICAgICAgICAg ICAgICAgICAgICAgICAgICAgICAgICAgICAgICAgICAgICAgICAgICAgICAgICAgICAgICAgICAgICAg ICAgICAgICAgICAgICANCiAgICAgICAgICAgICAgICAgICAgICAgICAgICAgICAgICAgICAgICAgICAg ICAgICAgICAgICAgICAgICAgICAgICAgICAgICAgIC AgICAgICAgICAgICAgICAgICAgICAgICANCiAgICAgICAgICAgICAgICAgICAgICAgICAgICAgICAgIC AgICAgICAgICAgICAgICAgICAgICAgICAgICAgICAgICAgICAgICAgICAgICAgICAgICAgICAgICAgIC AgICAgICANCiAgICAgICAgICAgICAgICAgICAgICAg ICAgICAgICAgICAgICAgICAgICAgICAgICAgICAgICAgICAgICAgICAgICAgICAgICAgICAgICAgICAg ICAgICAgICAgICAgICAgICANCiAgICAgICAgICAgICAgICAgICAgICAgICAgICAgICAgICAgICAgICAg ICAgICAgICAgICAgICAgICAgICAgICAgICAgICAgIC AgICAgICAgICAgICAgICAgICAgICAgICAgICANCiAgICAgICAgICAgICAgICAgICAgICAgICAgICAgIC AgICAgICAgICAgICAgICAgICAgICAgICAgICAgICAgICAgICAgICAgICAgICAgICAgICAgICAgICAgIC AgICAgICAgICANCiAgICAgICAgICAgICAgICAgICAg ICAgICAgICAgICAgICAgICAgICAgICAgICAgICAgICAgICAgICAgICAgICAgICAgICAgICAgICAgICAg ICAgICAgICAgICAgICAgICAgICANCiAgICAgICAgICAgICAgICAgICAgICAgICAgICAgICAgICAgICAg ICAgICAgICAgICAgICAgICAgICAgICAgICAgICAgIC AgICAgICAgICAgICAgICAgICAgICAgICAgICAgICANCiAgICAgICAgICAgICAgICAgICAgICAgICAgIC AgICAgICAgICAgICAgICAgICAgICAgICAgICAgICAgICAgICAgICAgICAgICAgICAgICAgICAgICAgIC AgICAgICAgICAgICANCjw/bCJhE5jnzPRtmhI5J0ai Xu6LHd1VAF6hf4QhIIRuCIzkpeJbUaiYKyHpFRJlOfqAGxu5JYffQR1YnIXhD3CsU9UgHGlgVP4UXEVe HVZljIZmCMEkIAUdBzG4OIZsUBbkCG7KnGBeLRbpUSExXKQjRAPkRIHpVJKoOEXFACZyAAWsXsItAHFg GKOxCRSmQPWATE9AFzOmR8CbnP05LIXATy5+DQplbm QqOhbTUrD8KMVfh2NlMIx3EJ9KNWTaHodvd4QcOMAtAGONOGxqSR9ZBNQ2HIEkNDUsAn8TPFGfG745nm SfIQ3LAx8MCwZaRR2kzs6RXPYpDZRvUslSBod0ULemXC2TgJAqQBbIcm9jmuTqupOTc0AxstOijEBVlB Dzn5UpACJSLHXdpQOgQSYEBPEmhLOqHW7vTR7zIKEx BEHyEvVkEVMERY6GZKWiUURkgPDeKIKoWUOMLT4SRCswWFQ4OZVkcvTcfRDwUIooUF2NRQJyjgMhZPyl MCBSDQo+Hx0NWX9zy0IyDUw1RJIes7UzMBf3XB4ZESOdEDczWXUaMS4xe4PeY8V3NaH2cJLgU7lqfgeu H2UnljTcjlUdVRApFRNwXV2ZIK1BFI9DXCEkRWkrWW 9PFFL8NEi7JbAoYBWyPWAdILA5Ho2bTGucZE1GSCe8M9RhT8PKHFCkMNDTXZGnmFF4DQGRWm3AS5IDAb zFAKFCDe9LOaOuZ4VSD4cSH93NMD5JSTX+PiANCj4+GDifluCgJplWWrVfHBHno0HpEVk2LI0MHLOjHD fbYB0QYEFxpW1fYYguZH4TBzZ1VoFqOAINLuWqX99a uRRxFGe0N3OwQsQkKBJzPpluBGYoKAzxPcVzRRKzCvAfIChmDJ4+ID4+FHofPU7IHBmujqLoBMIeZu1L QIZlJFAeGO0aYQBrJVTqR6K1qFwzGDUJCrTkX1mtamioIK3tTIAgR677qVlnkoVoZGF4SWHlZc0TRHRr BGL0KLYnmZFoDAxkLQQELJliMR9PjRKxOGN4uE7dMB wjYDEtPSSqU0eDDkTcjCxzEM77vFoqgjDwjNGyXTb+Ur8QJL6qi1TrJAa6tsLgZSclMAOlTCxyMPHjMJ EkIQUpJWQ2ZDR1IDCVBxWkPZKbZKIzUGvwSIJkPCDzcy7OTJWzXWK5GjZiIILjGKKyHSDlEYrfLGMtAK C2DMT0ZEZfCCOoDB3LSsAgLOQzFDSoTEdrTYCpSFBg sy7WJVSxWTIvHyGqIUJzQLBzLGKiUEciEGOgHXP6HFUxKISvNKThOC0RYcRzYCUyWFR5GmQeAVAxYMEu lf8VMGGsMRYlDiy4LxIsWOPpYIWvOQrmEBNyREZ4MLp7HUMiXCEaCN0UDrSbNLJpLAJaMRByAMZrRPZn mp0DCQUaIJWiOFA4MVEnPDLvETSzFBciHSZsBUGpHL q4LSGyMXUqDN6UQkZmCPAxUBAbFVMnTDKiBRJraj9YPUAcZFAlHGgcNFSpLQDsFXOeZYunVMXfQYK6RO E2RNNyNHGhFC8PPlKyQWFfIsQ3LkDvZCJoSBVdwy4CWERcBHNvJLT7OLEkAEBrFLAfWVafKSQlJXDnFm D1QPItPQUvYU4RTbUzCHLbCiV2VxRuAMBrXVCdum6V DVYqMSMoTcXcPQRaZSXgKBSpSAxqMULoDZBcPPH2ANJlFIMzQR1SQsOtFQLhRhDjLxSrOEVwSATtfd8I BTFpNCNrBnA5KEJtZCKnDHGaLUhpOOTaPMW7Qwp3MCCzOEWhWX0RJmEgYBYhUbDyYDZkFWWiXAVaua7M WOBiUACtUYToUfRkPLPcLHFpOGyuGLRlGWO8PSxiCV BgJVClZU1EEmCpHZIbFsM4MEmjDOWoUZYpkc7PSZVwOBTrYxT9ElXoCPQoAATtBHkqWGCcIZC8ZGOeLM AuIRPcOI5RXpDzUEOvRvgpVEUfSUBkKVUmxq0HPPCnVBP0FWX7HJPeMULmLVYjNYtoLGZzVUC6Alj9YL ObGLFwXE0NTlBzFXAqEPs1GHEeZQNiQRJxzn9FQUUl LAG8PWX9VjMiOUYgYPYsBMrmWJTmKPI0Mie6KWWyKYBdQH9UXzSdZAQaBROpBtSvALRvWPBdtl9ITNAk ACV7TSMePCAnBMWdNPLwJWeaKPOnPTUpHFg1MSKeSZDhFT1GEcEuJRRoCBD4CZSgFVExPMQmim7XVTNn BDS4AKc3FbViJUQwWLCrXFbjXTHaIQM7SKw2BQLuQD BnQL9HAgNfGRBaSOFqRkKcYUJhSWRxyj8PIJEnUII6KhX0HoCyRTWeIWIkDYfpSVEjKEA3CVa3BQRhOQ BtTB9NZcOoCRNiHPY3SuRfNEZvDPAtjw1CMBGuQUO8Hhf8OqBkCWWtQNVwFWidYSOvBXC6GVJ9ZWKuMA PrFG2LXxEeGAQdOFr4VjfcNVKhCMTpyk2WQYWnBJK8 ACKiFJViKCAuENEiTVgbNMQvAPD3LoJ2CCZhMERbDD6KDtTiAUsqWFHHWua1YOhrQ6p1LQN4Fo5CM6So i1OgJWXhRBMZMZupZJ1lkkTbQKLuCe5FC2aQRoyrPTH9XHC0WXf5WBFmAIifNSWvKXVoRTJ8VPU2WOM1 Nz4xCFZnOFVmWzU6SluoKzQsRWQ4KJRsZkU7JSz4Po cmYNIpSrHsTO4VAu3LHlN1QOL8yUBtIi4TOAk6MOBUMxNdNU2WIZe= ID Date Data Source [id number] 12/28/2020 06:28:37 PM EDT [facility] Name Value Range Interpretation Code Description Data Kayley rce(s) Supporting Document(s) Progress Note [facility] SJMQEa6zOlDZZtDz63/WOYsuNUUxx1CxWBjhGVl2JTrgBMZvO9DiXGW1kK0xCVY6WGrXHfRnQdEsPLC9 lbm [file] nW+DPpHaALHD/+lw37BqULNh+zoTKpa6/3XWFTY [file] dGE+DQogICAgICAgICAgICAgICAgICAgICAgICAgICAgICAgICAgICAgICAgICAgICAgICAgICAgICAg ICAgICAgICAgICAgICAgICAgICAgICAgICAgICAgICAgICAgICAgICAgICAgDQogICAgICAgICAgICAg ICAgICAgICAgICAgICAgICAgICAgICAgICAgICAgIC AgICAgICAgICAgICAgICAgICAgICAgICAgICAgICAgICAgICAgICAgICAgICAgICAgICAgICAgDQogIC AgICAgICAgICAgICAgICAgICAgICAgICAgICAgICAgICAgICAgICAgICAgICAgICAgICAgICAgICAgIC AgICAgICAgICAgICAgICAgICAgICAgICAgICAgICAg ICAgICAgDQogICAgICAgICAgICAgICAgICAgICAgICAgICAgICAgICAgICAgICAgICAgICAgICAgICAg ICAgICAgICAgICAgICAgICAgICAgICAgICAgICAgICAgICAgICAgICAgICAgICAgDQogICAgICAgICAg ICAgICAgICAgICAgICAgICAgICAgICAgICAgICAgIC AgICAgICAgICAgICAgICAgICAgICAgICAgICAgICAgICAgICAgICAgICAgICAgICAgICAgICAgICAgDQ ogICAgICAgICAgICAgICAgICAgICAgICAgICAgICAgICAgICAgICAgICAgICAgICAgICAgICAgICAgIC AgICAgICAgICAgICAgICAgICAgICAgICAgICAgICAg ICAgICAgICAgDQogICAgICAgICAgICAgICAgICAgICAgICAgICAgICAgICAgICAgICAgICAgICAgICAg ICAgICAgICAgICAgICAgICAgICAgICAgICAgICAgICAgICAgICAgICAgICAgICAgICAgDQogICAgICAg ICAgICAgICAgICAgICAgICAgICAgICAgICAgICAgIC AgICAgICAgICAgICAgICAgICAgICAgICAgICAgICAgICAgICAgICAgICAgICAgICAgICAgICAgICAgIC AgDQogICAgICAgICAgICAgICAgICAgICAgICAgICAgICAgICAgICAgICAgICAgICAgICAgICAgICAgIC AgICAgICAgICAgICAgICAgICAgICAgICAgICAgICAg ICAgICAgICAgICAgDQogICAgICAgICAgICAgICAgICAgICAgICAgICAgICAgICAgICAgICAgICAgICAg IDUvAEEzQAXuONMwDEWiJNDkMWZjISLcXPYbDJAwKIMnUCMvOEPcCFEsYTZbTGEsYZBrNEDpFZs7R1uv HDRnXLLvZU4eKMe2Oo0+ZEnCJcTfHYA4pdMpjR4JBH 1hr6BjJFarVRSfz0DmCQy5GF4ZQPHyPBjoEJ4BYFymge1ZUSZyQEZqgSBRg0utVuOkSWI3BKGgWwaiOU 2HLJIaK8xpprNtJKBmSTYIJWakEYVKGWshEEGJSYYrAUVdSjPjSgXhQHUpHUAlSGMHFMI2VLCoBzGpNX AwIFIgMjEgMCBSIDIzIDAgUiAyNSAwIFIgMjcgMCBS AD3KEzKpY5GnjM41ISMeSYw+Iu6MYR8ck0HkBXd9EFIgPA9usj5MLYxFRuScL1GpiqE1BIP9HNCpTo1J BDUgVXBhaAV5UrHzPGFSFmJfL2DinN74SOSXYx4+ITjjtoYyBvnZCqU0JULwa3TbECv9PS2YVWMtBNl1 vXMlDCPuA6Fal4IrVb04VXJvLcswBywsv6vgyhMaRC LwuUkcQSxpUVXsRTTaUHVpQXYkFmMlWSPrTQgxHDGDMOhFUbXoC7Fqa5ZpMfT1DQQdLyMpMJroOHFtOr M6FP05hNeeTX1ZGTCyHSUrJK59JOP0QYLpZx4SIa4NPfKpNN8dya7AIOejZSOjAygMIdk2DJldTI0HgG CiT4RvwLLld9xFBpGuI9WGUPDkJBWjUp7TTYRyWzKm AEWrZMfqGG8zERYfYBZFsRusghD0UR5KOD0xnoLaSI5TIuKlVq6uIo8VYoGxW3BcN9CuDQUbIIMHCMnq LL3MBYvwBO6dWL3Nb7WQzYQokV6smq2JHBFpZDOxUevmqz0HFjgpG0Y2sOkcCDBlXDMrTENHJNhrID0L UYYpHQL4DZG1PJZpOABLVlOdO72nVK0XL7Wde77xAi X8HGXuWcRoAGjePB23wFbkqwAnsLIqmWckTB0YRs8+DQplbmRvYmoNCnhyZWYNCjAgNTgNCjAwMDAwMD PaOZRzYwH5XmLjNk5HGCXaOHZrFYKuBeUcENXaCDDfBKpwJHYxXZh8TLivAJLkWOGhEE3HWsQmDHObZY G5MiFpKIDySSFwtc5QBJHbNZRtBCV9XtVeWRHmZHIp OHunMEZuOCJ1EqO2VEEdBNUcOK8NSsDdFRUqVDR2BiEjCWQaRKCpem5GOHFqPDRmHZW2OeTlKIEnQVKq UBkwLWEqRKO7LrxtMPNbHXLgPH5RKmYjDGRmFVZ6RRVsRYSbPTIvul7KSDMmBBPiVBhtCRSgJGYgFPXe FTzsUJVdQNTnAgd5VEUtZYZbRZ8RGoHtLUGsVYB0HI CgPDAePJKvkw7SCZZnZRElIeV3OZRtZUJnJAOwIRozQZTcEWT0YSdgGHHqIGLjDA1HFuQeDILuZRshJV ExLKNtPYImaj7VKIRcRPJnDXChTKJsVTEjKIXeQGzaZHFeRBRbJeJ5AWAhEJXrVS5EJuWbMPGiWiI8Je JaIVBwYRJtyn6BARKqORJmAfa8NbQeQRAsBIZhTFrm ZHHjJOSbGRh3BTBoVQCxXL9RPvCpICZxVwA1RWHoUZMzJGOpvk8LTRStQWKpIuL3EJSzYWKvCXCkFWrt CKHuVFVpBdguSKScCOAvRK5CSaOrAJDgTlC2EPycLYEqBNWrvp3UFXNlTDYoXbidMXExKDHyEIUuMMpt YODyRCJ7WMG6LYGqXBGrDX5CVoDaBTCcRdP1XTZoNB PeZIJiux9IRMVyNDFiFSMaAHFoXYWvQYUhPTwbYWHtCYD1GZvlPRNvVAAdZC3KRzNhVMDbMmQyQeriND AjSLMvjr9ZCTUuQCMwNsY9HUJqXBYoXWOtHQukSBGvVLZ8JRKvXQIwNGLoQE6YAeIeEVGoWfi2GASpXN YzOVDolt3ZHSCrDLZkTitfJZUmFYWyCIMxMJjbRZWh WDT4SVP4SGNvWFOqIQ1QLpVnQMOvEcu1ASMrBCDkNHBvcc5UFBVrRAY8HHvbIZZgTPLsOWTtSJdrYSGg FDovDrMjKCBdVHUgKN7YLnRsAXVqCkL8SrmnZIWdMDJebq0GUNKzSKB0XUpkTCAvCWQtNQPfPQtvHIRy DVvsAOxiTXYxZINeIU0HGaGxBQZwRxJlNcWwUCEaVE Vode4ZTQRpFUC5UrTqZCPnEQUmHZMyXBxfQXJvLLe2LmA0DANqEYPyCR9IUgGiRLUqZgq1ZZqqEVBvXB Omin4YJQVfJNM7Svb3YXDqAGWmBMQuXThpQYCxHWe4VGT9YLMsCWNwWU3ZTcDlNJGlUyjeYKPqANShHG Tmem7ZZPHyDQH0MIN5XCGdPBCzUDMmIWxpZKLtUUy8 JUPzWIKdHSGpHB7JPkSfWUQlTjt4LICtKGMoJMLixg5OEHYrKXB6LHC2FhWnBJIaNCNhBGreKMStHCf8 AXWkWARiSEKmFA2WYeQnBZFjBFMxQmUeQVXoKFVbjg1WJESdSAU5JXxqNEAiNVTaKIWmSPatZHQhDGvy LQSjDMHwIYPtEA0CBySuWXOzRNIrOgEgAOUvUJUzhn 0XtACqaOmhdk8NTCwZUo7XsFhyEVF0IDszAe8pvBC7HvWhFOBMBt2IayXpFMLtWPQLSXimWBTmMSzzGQ s5IhB5KnHpEILqWAOuZbUfHTT8P2E3QBP5LrO0YuW9QFKwSeS1MELhW4G3NpBdN1LfAXE2QWUwXUw5Ga cyMzk+KQ0xQHn+Qb6Yy2LkxmO9qrEeWPn2LnOqXy5GWBUBY4CKVt== ID Date Data Source [id number] [facility] Interpretation Code Description Data Kayley rce(s) Supporting Document(s) Osmolality of Urine 249 mosm/kg 300-1000 L [facility] ID Date Data Source [id number] 12/25/2020 01:46:11 PM EDT [facility] Value Range Interpretation Code Description Data Kayley rce(s) Supporting Document(s) Potassium [Moles/volume] in Urine 22.7 mmol/L [facility] ID Date Data Source [id number] 12/25/2020 01:46:11 PM [facility] Value Range Interpretation Code Description Data Kayley rce(s) Supporting Document(s) Sodium [Moles/volume] in Urine 35 mmol/L [facility] Confirmed ID Date Data Source [id number] 12/[facility]2020 [facility]:46[facility] Value Range Interpretation Code Description Data Kayley rce(s) Supporting Document(s) Chloride [Moles/volume] in Urine 43 mmol/L [facility] Confirmed ID Date Data Source [id number] 12/25/2020 09:20:44 AM [facility] Value Range Interpretation Code Description Data Kayley rce(s) Supporting Document(s) Leukocytes [#/volume] in Blood by Automated count 3.4 10*3/uL 4-10 [facility] Erythrocytes [#/volume] in Blood by Automated count 3.53 10*6/uL 4.6- 6.1 [facility] Hemoglobin [Mass/volume] in Blood 11.0 g/dL 13.5-18 L [facility] Hematocrit [Volume Fraction] of Blood by Automated count 31.4 % 4 1-53 [facility] Erythrocyte mean corpuscular volume [Entitic volume] by Auto mated count 89.1 fL 80-96 [facility] Erythrocyte mean corpuscular hemoglobin [Entitic mass] by Automated count 31.2 pg 27-33 [facility] Erythrocyte mean corpuscular hemoglobin concentration [Mass/volume] by [facility].0 [facility] width [Ratio] by Automated count 13.8 % 11.5-14.5 [facility] Platelets [#/volume] in Blood by Automated count 246 10*3/uL 150-400 [facility] Differential cell count method - Blood [facility] Neutrophils/100 leukocytes in Blood by Automated count 61 % [facility] Lymphocytes/100 leukocytes in Blood by Automated count 19 % [facility] Monocytes/100 leukocytes in Blood by Automated count 15 % [facility] Eosinophils/100 leukocytes in Blood by Automated count 3 % [facility] Basophils/100 leukocytes in Blood by Automated count 2 % [facility] Neutrophils [#/volume] in Blood by Automated count 2.11 10*3/uL 1.8-7 .0 [facility] Lymphocytes [#/volume] in Blood by Automated count 0.65 10*3/uL 1.2-4 .0 [facility] Monocytes [#/volume] in Blood by Automated count 0.51 10*3/uL 0-0.8 [facility] Eosinophils [#/volume] in Blood by Automated count 0.09 10*3/uL 0-0.5 [facility] Basophils [#/volume] in Blood by Automated count 0.07 10*3/uL 0-0.2 [facility] Nucleated erythrocytes/100 leukocytes [Ratio] in Blood by Automated count 0 /100{WBCs} 0-0 [facility] ID Date Data Source [id number] 12/25/2020 09:34:[address] [facility] Name Value Range Interpretation Code Description Data Kayley rce(s) Supporting Document(s) Prothrombin time (PT) 13.5 s 11.6-14.0 [facility] INR in Platelet poor plasma by Coagulation assay 1.07 [facility] Routine intensity oral anticoagulation I NR is typically 2.0-3.0. Target INR must be clinically individualized. ID Date Data Source [id number] 12/25/2020 09:45:59 AM [facility] Name Value Range Interpretation Code Description Data Kayley rce(s) Supporting Document(s) Amylase [Enzymatic activity/volume] in Serum or Plasma 75 U/L 28- 103 [facility] ID Date Data Source [id number] 12/25/2020 09:45:59 AM [facility] Name Value Range Interpretation Code Description Data Kayley rce(s) Supporting Document(s) Albumin [Mass/volume] in Serum or Plasma by Bromocresol green (BCG) dye binding method 4.5 g/dL 3.5[facility] Bilirubin.total [Mass/volume] in Serum or Plasma 0.3 mg/dL <1.2 [facility] Calcium [Mass/volume] in Serum or Plasma 8.3 mg/dL 8.8-10.2 [facility] Chloride [Moles/volume] in Serum or Plasma 89 mmol/L 98-107 [facility] Creatinine [Mass/volume] in Serum or Plasma 0.73 mg/dL 0.70-1.20 [facility] Glucose [Mass/volume] in Serum or Plasma 117 mg/dL 70-140 [facility] Alkaline phosphatase [Enzymatic activity/volume] in Serum or Plasma 82 U/L 40-129 [facility] Potassium [Moles/volume] in Serum or Plasma 5.0 mmol/L 3.4-5.1 [facility] Protein [Mass/volume] in Serum or Plasma 6.9 g/dL 6.4-8.3 [facility] Sodium [Moles/volume] in Serum or Plasma 122 mmol/L 136-145 [facility] Aspartate aminotransferase [Enzymatic activity/volume] in Serum or Plasma 34 U/L <40 [facility] Urea nitrogen [Mass/volume] in Serum or Plasma 10 mg/dL 8-23 [facility] Osmolality of Serum or Plasma by calculation 254 mosm/kg 275-300 [facility] Creatinine/Urea nitrogen [Mass Ratio] in Serum or Plasma 14 [facility] Bicarbonate [Moles/volume] in Serum 24 mmol/L 22-29 [facility] Alanine aminotransferase [Enzymatic activity/volume] in Seru m or Plasma 23 U/L <41 [facility] Anion gap 3 in Serum or Plasma 9 mmol/L 8-15 [facility] Glomerular filtration rate/1.73 sq M pre dicted among non-blacks [Volume Rate/Area] in Serum or Plasma by Creatinine-based formula (MDRD) >6 0 [facility] Glomerular filtration rate/1.73 sq M pre dicted among blacks [Volume Rate/Area] in Serum or Plasma by Creatinine-based formula (MDRD) >60 [facility] ID Date Data Source [id number] 12/25/2020 02:03:30 PM EDT [facility] Name Value Range Interpretation Code Description Data Kayley rce(s) Supporting Document(s) Lipase [Enzymatic activity/volume] in Serum or Plasma 65 U/L 13-6 0 [facility] ID Date Data Source [id number] 12/25/2020 03:41:51 PM [facility] Name Value Range Interpretation Code Description Data Kayley rce(s) Supporting Document(s) Thyrotropin [Units/volume] in Serum or Plasma 1.030 u[IU]/mL 0.270-4. 200 [facility] ID Date Data Source [id number] 12/16/2020 03:53:57 PM [facility] Name Value Range Interpretation Code Description Data Kayley rce(s) Supporting Document(s) Progress Note [facility] LPOFHu2dIeTHOcPr33/PVFjpLQFtp2HmLVlwQWf1NMasOVBnJ9LiKBP9sT0tNWK2GZkJGdFxIaZyNXB3 [facility] [file] i/PR3ZYNFO7lsWtpzSBznz2zUFGif63c6itMsVxcfGMNZgR7my6bMCY0SesWsTMZ1KFAKDgk1bPU+татьяна [file] PQpC6AlvwinTF/4EHeV9HnDYyvA9Ys3RvGCn/b [file] CW1iXGokIEjkx1XgztS5jnR4yUtPbFgC+vp [employer]+uhD9ax [file] ICAgICAgICAgICAgICAgICAgICAgICAgICAgICAgICAgICAgICAgICAgICAgICAgICAgICAgICAgICAg ICAgICAgICAgICAgICAgICAgICAgICAgICAgICAgIC AgICAgDQogICAgICAgICAgICAgICAgICAgICAgICAgICAgICAgICAgICAgICAgICAgICAgICAgICAgIC AgICAgICAgICAgICAgICAgICAgICAgICAgICAgICAgICAgICAgICAgICAgICAgDQogICAgICAgICAgIC AgICAgICAgICAgICAgICAgICAgICAgICAgICAgICAg ICAgICAgICAgICAgICAgICAgICAgICAgICAgICAgICAgICAgICAgICAgICAgICAgICAgICAgICAgDQog ICAgICAgICAgICAgICAgICAgICAgICAgICAgICAgICAgICAgICAgICAgICAgICAgICAgICAgICAgICAg ICAgICAgICAgICAgICAgICAgICAgICAgICAgICAgIC AgICAgICAgDQogICAgICAgICAgICAgICAgICAgICAgICAgICAgICAgICAgICAgICAgICAgICAgICAgIC AgICAgICAgICAgICAgICAgICAgICAgICAgICAgICAgICAgICAgICAgICAgICAgICAgDQogICAgICAgIC AgICAgICAgICAgICAgICAgICAgICAgICAgICAgICAg ICAgICAgICAgICAgICAgICAgICAgICAgICAgICAgICAgICAgICAgICAgICAgICAgICAgICAgICAgICAg DQogICAgICAgICAgICAgICAgICAgICAgICAgICAgICAgICAgICAgICAgICAgICAgICAgICAgICAgICAg ICAgICAgICAgICAgICAgICAgICAgICAgICAgICAgIC AgICAgICAgICAgDQogICAgICAgICAgICAgICAgICAgICAgICAgICAgICAgICAgICAgICAgICAgICAgIC AgICAgICAgICAgICAgICAgICAgICAgICAgICAgICAgICAgICAgICAgICAgICAgICAgICAgDQogICAgIC AgICAgICAgICAgICAgICAgICAgICAgICAgICAgICAg ICAgICAgICAgICAgICAgICAgICAgICAgICAgICAgICAgICAgICAgICAgICAgICAgICAgICAgICAgICAg ICAgDQogICAgICAgICAgICAgICAgICAgICAgICAgICAgICAgICAgICAgICAgICAgICAgICAgICAgICAg ICAgICAgICAgICAgICAgICAgICAgICAgICAgICAgIC WfDFUoWBCoUWYiZIWyRDx7Z1evQRYoAVWzUJ1vPUc9Rg2+LKhRIdPgRPQ0ngKgkI1CCO2gt6WrAEkeTC Vwn5ZjWKk1KT2LMNCgRThwYL6OTPydsz5ZWZVyDZHasHLQf0qoIgNbEQK0USTlOxqcFY3FKZMzC6wbjl BbIDUgMCBSIDcgMCBSIDkgMCBSIDExIDAgUiAxMyAw FFGrYTRlAJZKAGD5DOTgTsJbCDUdYDUlVwRbQBUPIMLeKTMbInIiSPEfBMNwSO5TJPKjR179qfCaZJCF Cj4+CSemxlFwYckGZbIdZBPxx4AoYRe2KY5EIYYbPaeyr2ByBKPrMPKLJAdnKV9SXZH1JIK3GVDrTj9Q NJKgD840nqHbYI0LSk7KPxOoBW2qza2XXBAtAFTtYd oPPtn3ENjmTQ0QrPXaMEgBdf7ovnHyudGCj6CdzrNwvTHDmQBme5ZaUJXPDTFwmZZaPHTNJCFnqBVaCB 09MwUkJbJqCSb5KFHxZQ8vGRaqZK3WPRC3ALqzYVKbVSZyJ7wZBnQvTQYgLnNlrTsySI5ROaNdC7Jtam MsyOI5EzLmILBPLo3+SPnxolCaGayPIiZ3QLNcr8Ow UIm7SM8FRQMfRMseLP2SNJRwgO5mTXxlTO2HXsU5GXJhEXJDQsSaF59ehJSbCHq7S6NrRdNaEWTnQzdg ZXMgPDwvTmFtZXMgWyBdDQogID4+ID4+HAbdIF6TAQbaylUiJVSmWc2LMJJdRCEsWN5pCWJhLSKlL6B7 dKcrZAPIGkOjD7ulpgqgIC5pEVJgG180mMhoacShGE FiTHQpTr7BSCCpDCU0NCYwdGXtZHEsRWIMRGctHD2ZmAJiDQT3iW9uQTwpQSWaQQHsY5gKIxWsdTqkAL 51bGwgbnVsbCBdDQo+Id0FRC6zw4GhSPu6qiLqGZwpOSV7AVjzPDGpXOJhYNOnWZL8ZYT2OSFVBuYbKC QoDHNqPYsoEPBvGIEmlv3POJPzBVG0DeBlLOKpLXXl JVHlPLslVMGzCAt4TyooVOCpHWOjIJ8MDrImXDXcZGCkYSuoTPAoQCUyye2VMWVhZLWrLIGeBOSfMDDm LLWtLMtaJOSgUBZ4AEH1WVGtNHMqDU8BWxKnVJNuXHadAVBwBTIuBDQjzd1PBJMeUZRhMQSwRLNwJHXh PCYoWRrcDSAkEFUrKDx6ESKrISZiMK9JDjCpLDPhCP B2HNPxWTKwSBEdiv0KYEWzIKZfPxb7CUEiXMQvWGElSNufAFFbAHT9XUv2TSUrFBXqJE2AUnUqOLRsGI LwFSzfJQXxHYKjmc4YISHvMRZbYcT9QlPbTUFtPMMrRIqoLYCpDEC3GDL6QNDnPREhDT3CHiRfAEJlQL ytMtKbXULrMMLhdm9HWRFfQLMwAPAqBeUuAMWiDGMt RZylXAHkCLFiQpB7FSKsKPYiGM7SGvTzOSXzNqY9OuGbLXYqJTRnex8ICEFjQVSvHehyMqKwXMNlUEIx ZGoiMWZaNWN7YbN5JTYhHFYhRA3WMuCeLTDqNyS3GjRaEAXfPMFpjr2FMRWlUQNsZXg3MVQkRSErUCXd MPmrHWJgTMErWRToSNTvYVPoVR0KCtKrSUCcEzA0Vv DoKRUpCLXkpc5VDFVfEVZcBsH4KXMjUUAbFBHnNUpuZSVfDIL6QWDpFDGqIUSyTE5YMxNnJDQsHgCqFx gtPKWhTUYszx7WIEQhOPWrHTBcNYWqCALeUHJeVNhbADTcHVW5LCb3OWEzSXRoJP4HBcYpJWTuEdS6PP YnXEVmALSqyi8PPJJpMHByUEx5RMAeVZXbJMVeKLbu OFTvZRU1LyJ5WTBeFCXtYG1GQfIdMFEyCulgCcOdUZXoFGZczb5UKTMwQOI6JgE9PSUfDJBpCAXhUIme BBUpRGK6LmA4CTPwBFWtGB5LRfPaZFWsMpd8ZFPoXAPpUIMfbt9ZEJFyKLK4XDSmQGLhNEXyCZMyIPzs MIYbMMD2EzR1NQJePZIdCA9KXwOvSOQsRko6RUWaAJ VoLLFrzj2PZACmSRJ4ZHH6YiIbSZNiSRPyYSkbMXYrREc7YHY4FJWnNHTyES6RAcDuEALwSjHlOoCmED BbFFAozp1QYJHfSOA3KRFgWtAwGODnIAUyOFiiIGUzPVx0PHUhRWSlXQTkGI3VRmSnFPOrGqF6NXRtRV ToVJGxga3YXDEpXJD3YvRqBLKaBJKjPJJfUYycGRUb KFn9KXc8ITWhTOUxTZ4DWyVlWRVnZypzTfVnHSFkSOIttv3XAXGbYKH5ChGjJIRrTJNtLIGeHQabZGUf LTb8VXw6KSYgQHJdXT4CElHoJATdVbw9SJNdFCWcJBMlod2HHAXaDPN8CBV8WGKfMKTxXBJfUKqiDQBj BCt0BBZvIEKyXQIeWJ7RPfHkEWOqWny4PSEvUPKwEX Iosq2NqNHpfKfjar5ZZVkBTa4XcMnbMMM4DMnrTj6krSF5IGEeQUINBp6LvgTyXVRdVAJGVIuoUBRdDX GkClAdCpe0Zxz7GJAgXFW5QXgeAMAsOZPlVsdbWtB6GrA8KBG0W7NbToivEJkyYCUsMGD8FuJpHhIzMX M3XCN4Ouo+EO4qQYw+Xr9Cp1PhlfI1qjQzXYh1ZJlsEZ5NPNSKJ2GNQj== ID Date Data Source [id number] 12/16/2020 08:44:47 AM EDT [facility] Name Value Range Interpretation Code Description Data Kayley rce(s) Supporting Document(s) Leukocytes [#/volume] in Blood by Automated count 4.5 10*3/uL 4-10 [facility] Erythrocytes [#/volume] in Blood by Automated count 3.79 10*6/uL 4.6- 6.1 L [facility] Hemoglobin [Mass/volume] in Blood 11.7 g/dL 13.5-18 L [facility] Hematocrit [Volume Fraction] of Blood by Automated count 34.4 % 4 1-53 L [facility] Erythrocyte mean corpuscular volume [Entitic volume] by Auto mated count 90.7 fL 80-96 [facility] Erythrocyte mean corpuscular hemoglobin [Entitic mass] by Automated count 30.8 pg 27-33 [facility] Erythrocyte mean corpuscular hemoglobin concentration [Mass/volume] by Autom[facility] 34.0 [facility] width [Ratio] by Automated count 14.0 % 11.5-14.5 [facility] Platelets [#/volume] in Blood by Automated count 247 10*3/uL 150-400 [facility] Differential cell count method - Blood [facility] Neutrophils/100 leukocytes in Blood by Automated count 59 % [facility] Lymphocytes/100 leukocytes in Blood by Automated count 25 % [facility] Monocytes/100 leukocytes in Blood by Automated count 14 % [facility] Eosinophils/100 leukocytes in Blood by Automated count 1 % [facility] Basophils/100 leukocytes in Blood by Automated count 1 % [facility] Neutrophils [#/volume] in Blood by Automated count 2.62 10*3/uL 1.8-7 .0 [facility] Lymphocytes [#/volume] in Blood by Automated count 1.14 10*3/uL 1.2-4 .0 L [facility] Monocytes [#/volume] in Blood by Automated count 0.62 10*3/uL 0-0.8 [facility] Eosinophils [#/volume] in Blood by Automated count 0.06 10*3/uL 0-0.5 [facility] Basophils [#/volume] in Blood by Automated count 0.04 10*3/uL 0-0.2 [facility] Nucleated erythrocytes/100 leukocytes [Ratio] in Blood by Automated count 0 /100{WBCs} 0-0 [facility] ID Date Data Source [id number] 12/16/2020 09:14:34 AM [facility] Name Value Range Interpretation Code Description Data Kayley rce(s) Supporting Document(s) Prothrombin time (PT) 13.0 s 11.6-14.0 [facility] INR in Platelet poor plasma by Coagulation assay 1.02 [facility] Routine intensity oral anticoagulation I NR is typically 2.0-3.0. Target INR must be clinically individualized. ID Date Data Source [id number] 12/16/2020 09:17:56 AM [facility] Name Value Range Interpretation Code Description Data Kayley rce(s) Supporting Document(s) Albumin [Mass/volume] in Serum or Plasma by Bromocresol green (BCG) dye binding method 4.6 g/dL 3.5[facility] Bilirubin.total [Mass/volume] in Serum or Plasma 0.5 mg/dL <1.2 [facility] Calcium [Mass/volume] in Serum or Plasma 9.1 mg/dL 8.8-10.2 [facility] Chloride [Moles/volume] in Serum or Plasma 90 mmol/L 98-107 L [facility] Creatinine [Mass/volume] in Serum or Plasma 0.89 mg/dL 0.70-1.20 [facility] Glucose [Mass/volume] in Serum or Plasma 138 mg/dL 70-140 [facility] Alkaline phosphatase [Enzymatic activity/volume] in Serum or Plasma 80 U/L 40-129 [facility] Potassium [Moles/volume] in Serum or Plasma 5.0 mmol/L 3.4-5.1 [facility] Protein [Mass/volume] in Serum or Plasma 6.9 g/dL 6.4-8.3 [facility] Sodium [Moles/volume] in Serum or Plasma 126 mmol/L 136-145 L [facility] Aspartate aminotransferase [Enzymatic activity/volume] in Serum or Plasma 27 U/L <40 [facility] Urea nitrogen [Mass/volume] in Serum or Plasma 15 mg/dL 8-23 [facility] Osmolality of Serum or Plasma by calculation 264 mosm/kg 275-300 L [facility] Creatinine/Urea nitrogen [Mass Ratio] in Serum or Plasma 16 [facility] Bicarbonate [Moles/volume] in Serum 25 mmol/L 22-29 [facility] Alanine aminotransferase [Enzymatic activity/volume] in Seru m or Plasma 20 U/L <41 [facility] Anion gap 3 in Serum or Plasma 11 mmol/L 8-15 [facility] Glomerular filtration rate/1.73 sq M pre dicted among non-blacks [Volume Rate/Area] in Serum or Plasma by Creatinine-based formula (MDRD) 86 mL/min/1.73m2 >60 [facility] Glomerular filtration rate/1.73 sq M pre dicted among blacks [Volume Rate/Area] in Serum or Plasma by Creatinine-based formula (MDRD) >60 [facility] ID Date Data Source [id number] 12/09/2020 02:15:00 PM EDT [facility] ([facility], ) Name Value Range Interpretation Code Description Data Kayley rce(s) Supporting Document(s) Gram Stain Laboratory test result Normal (applies to non-n umeric results) [facility] ([facility], ) NO CELLS SEEN NO ORGANISMS SEEN Nasal And Sinus Culture Laboratory test result N ormal (applies to non-numeric results) [facility] ([facility], ) <content>FULL REPORT IN LAB [...] 1 S</content>
<content></content> ID Date Data Source [id number] 12/09/2020 02:15:00 PM EDT [facility] Name Value Range Interpretation Code Description Data Kayley rce(s) Supporting Document(s) Bacteria identified in Nose by Aerobe culture Laboratory test re sult Normal (applies to non-numeric results) [facility] ([facility]) NO CELLS SEEN NO ORGANISMS SEEN ID Date Data Source [id number] 12/05/2020 09:21:09 AM EDT [facility] Name Value Range Interpretation Code Description Data Kayley rce(s) Supporting Document(s) Progress Note [facility] KULSYt5iJuVAAuGq83/OEFduYJWlf9AqHHurTGx0BDlzTJBwP1BwIDC2yQ3eDLV4FWuVOvFsLfUlFOB1 lbm [file] AgICAgICAgICAgICAgICAgICAgICAgICAgICAgICAg CZAiMRYxTSCsBDTsEAMiQVPfNHGkKRByGW2LCCMsMLNdGAZiMNCpIHWlLLNvEPSqZUKqQVAvWZYdXDVj ICAgICAgICAgICAgICAgICAgICAgICAgICAgICAgICAgICAgICAgICAgICAgICAgICAgICAgICAgICAg OEMeTCFeWI9AZWAeRXBpWRKwAVMbKCGhUWRhIWLcSK AgICAgICAgICAgICAgICAgICAgICAgICAgICAgICAgICAgICAgICAgICAgICAgICAgICAgICAgICAgIC PhXGBpUILpTYKuSMQpNRTgDM0FSQWjNKKbFNFsESKrWCIwZYSaORZlHOJtHCIdDZRuUUKxSTXmIVVnJV AgICAgICAgICAgICAgICAgICAgICAgICAgICAgICAg IQOlBZXfJOVwVQRoANWgWODyETZwXWCmQORrLI8FNNJvOOZkVDJhOAWlXQDySAZtNZHiYOSvDTPgKJZs ICAgICAgICAgICAgICAgICAgICAgICAgICAgICAgICAgICAgICAgICAgICAgICAgICAgICAgICAgICAg DFZiDFVfGEOsLX4MQERcFFPrDVQrGVAzSENaNRRnWM AgICAgICAgICAgICAgICAgICAgICAgICAgICAgICAgICAgICAgICAgICAgICAgICAgICAgICAgICAgIC RwJYXzBFFbIXEeDZYsVJTqWLYuJP5AXFFtSPLsYTIyBEKtCJUcHWEvHDGgECDiMEHnYWXbMDVlGJWfHS AgICAgICAgICAgICAgICAgICAgICAgICAgICAgICAg VKSpNFXoVVFaERWvHVTqABTcNFApCIOfEKZhOVKnJB6TFZPkBLAcYZEoZTGtVMXcPXKrDDSdIOByLSPf ICAgICAgICAgICAgICAgICAgICAgICAgICAgICAgICAgICAgICAgICAgICAgICAgICAgICAgICAgICAg TLUxUKEuLEFvBLLrAI6SZWVxMPLnKRNkEIViZEFdUG AgICAgICAgICAgICAgICAgICAgICAgICAgICAgICAgICAgICAgICAgICAgICAgICAgICAgICAgICAgIC RsWCClBZJdHYVbNSNkHWCgXQQhFLZrGP2PQEXoFZVxJOOvTTQfKETaVJDjRRMjFAHoODJkTQBvLFWdIY AgICAgICAgICAgICAgICAgICAgICAgICAgICAgICAg PBGxPNVzMDGlOXKbAKJhOAItDTPgSGZwOCDhFSQnSYYpQZ6ZBP38cGKbo5Y3QZIwFA6ylry/Jj5VGIoc frUvwQYlQH3QEwZtYN5fzf0ZYiBmAQ4ozq3DRWeWKhUnN3O9nECxWWLwPWHWJoSnT11tQBkyRa08SLua UIUhAgXiORm5Yq8SNoDdU7ynHMJeQcH7EZJrLjU5TA BbSnL2GISlXyTqZBRlMCCmTSAgNRQEBHH3ICCpOqVkHWpbWY9Rc8EwvIC0BDb+Ue9KXW0lz6CtUBw1BX GoZW4ooc0DHWtCBhTdR8JvsrI6IGPlTXOeUs4PGJZnRBYanBH6SLGqCIDRSiMfC4ZrbQ84JCVYOd1+DQ rdfiPwSwzELwEeQOHfp3TzVVi7XB6VZZKmDZh2zFQy XTFuK6Fqb5KpTi54JLEkShetZbzbj3xbgsRyEZBthDpvBEbeMTXkGYXrBL5rVl9rCFQbIDL3EnPdIFOR TQ8GHRPiSWNspPSyFNCfFCLRFL2FPBrmZCN2XUVonkZbfOQcYMfcGH2MMABccsRmIEZpZBEBGXc+Pg0K IQ2av5HmKWn8YpDpQE1jty6ZFOoAJtHhC3A7dABkS5 E9NRuqQt5ZQFPaVOZdIijjNHWPWBmrIN5WDT5duyS9SD6CwYPrMOCbOALotYGkJMq7L26jrQGwBTigJQ 0KICA+Pallavi+Ri3QPRBjZQDyIKHaZgVtPKESReLcS3BcP4HZr5WpC6JxCA48dVdwvdJjPHiaZK5JWS5cFB CpCPXZRM1AfGFdnA6hcsI9KDIpNJUYEnTgX66ipSXt DPHvOJJ2DAGpKh8RGWEwA3BdlbUnuMbekoRkFQKfAFBPKD5AMTfuqgMqlVXbpPlxBL04kDrzKW5OYu0Z XrXvMH0kjp2UsDUmWy1KCHA3Xu1QRDIbJOIsBQRrNDB5XTAuHdIyOClqHFIhBSCyJXM3SAWwUPTbAM4D ApPuNHYhPcM8XQNlQXApPBFcnh8BOLUrXKM2NwemWH VoGPVuEUEmEWgyNABjBZMmNVV5RXBgIWDeIP3YCwToAQSrQFTxZJomTDNqXCQhtl5ZOYDuPCCtKKD3Rv UvZMJkXYNpAEfaCAXrGHO8UGk1ENPvDKAbYI3CNgOoLKUuJLnwJXBhLNOyEZJhwa6HGXTuBQGbIJF1Go WrPNLvLZMhAXyqBOFnIWIlOzFuWOJcKKSmMT4XXoGo MMAfIVWdCCKoRDHxBCOcon4GUWCzCLLkIoR3WtYnNVPrXDPnPIkpSQHjZPP0RLEvFCDtQDHaFS1XReJi FIVwIKolTVmkQGLdTQMjsl4OGNIfXTEsHMxvLVVmYFYeYWAePDqmCWIgVBO9VTF0ZVNuHZSyYC2LWaWf YPUkCHb8QTJtAIHrMEHhbq9NPTJeNGEyURM4LfDdCF KnEXBrJDvzUGGfSXYxAsp7OYSsJQGpOY7DJdBgMMPhPeDjDeAmETVzZNDkdc2ZNHOoIREsNZDqTxAyPV EmQFZkHDxtAMYcVXHeJpP3XDCpTNRnYY3WNjVkQMQgGLM3FGZeUJSaQYNxju9MSKBoDMK5MeWzPeBaLO AbLSMaVLlaFAVxJAYqQiUrARZuBBRqUW9FGwYgLPXs PWDoEYXsCDTlXXDwfl1FIDZaXDZ1XzZcTUPfGBDqYGKcBElhUALqUWE5DBbvBZBaIQTrXS5CDlRaGMLi SIY6TaDqFUCwVLHnnp7AVZZbDWH1JHzjOADiLHAmVZRtSRohWQTdYDO8OpnpSDYvHEPmRR6UVxBrMBFf AnDfDNGiMEEeKSNrja7NTPInMYU7JJDrVvUaCPYjXB PxSHgvBJOkQMWoJATvZGLgLUBzIT4PWeQxTUGtNzQ2AGgmHNPqPAFtig6EZTMiERZ9OSI4MxYkIKMuJC HvPBjqLTRpKVAeOlUpJABqJCTsEC5EUyJfFJVkEmZ4DRxbQSAbBKJgse7ZQEBhDIS2PyE6WKVjDWAyWM QxPVdyBCQqRCPfMFG6SFUeSXYqNA6VMrBsSYYhPvS7 BCXkIUAvFQYfgf6DDMSzBHU5KCT3GEUyRPShJPWnDKl3tyKskENxPIm9LY4JS4ObwlXlOKFOZe7Ra002 QOStNFJkEz1XU0kwSb8dJGFvBOBARf1NUYe3XlTeWDU3DZAgKms9J0ZsHKa8NfM2WmflQGS5PzN9QFU+ RByhHxIuMvwzJEM1RRwuDkWlDRG4San4Q0XrVDw5JZ w6QI4uOARGWi5+HAqweBYskInrTJFECrZ7JfW8CLdvAYJPEf6R ID Date Data Source [id number] 12/04/2020 11:20:11 AM EDT [facility] Name Value Range Interpretation Code Description Data Kayley rce(s) Supporting Document(s) Progress Note [facility] BPREZy4qZaBVOmRu13/FMWjoWYCer9XxPNupGGe9XGksZWQpJ4YcZUV7dT1wYKP7OMbYHxPiNpSiZMGi lbm [file] YvBBOmJqM8NTktCwW+VN1iMPd+Mi0Cg9WynrP3ybJnLFplYRB4ZU0SKTTSK7TGGq== ID Date Data Source [id number] 12/08/2020 10:14:00 AM EDT [facility] Hematopathology Report See Addendum Prem wNthao: OLSON, ED C. Number: [id number] Date: 12/04/2020 10:30Received Date: 12/04/2020 11:40Physician(s): ISAI [...] rendered thefinal diagnosis. Addendum 12/12/2020 Cytogenetics report [id number] shows that chromosome analysis revealed anormal male [...] BLOOD: CBC performed at [facility] ([id number]),[address] [place] [address] on 12/04/20.WBC 4.4 K/uLRBC *3.95 M/uLHgb *12.3 [...] % Neutrophils 0.5 % Eosinophils 1.5 % Kmowsccot16.0 % Lymphocytes 8.0 % Monocytes --------100.0 % Qualitative leukocytic changes: Some large granular lymphocytes arenoted. BONE MARROW ASPIRATE: Cellularity appears normal as judged by particles on aspirate films. Differential Count (500 cells):36.8 % Erythroid Precursors 0.6 % Blasts 2.2 % Promyelocytes 7.2 % N. Dgqsqoilfk31.8 % N. Metamyelocytes and Band Forms21.0 % Zachary trophils 2.8 % Eosinophils and Precursors 0.2 % Basophils and Precursors 4.6 % Lymphocytes 0.4 % Monocytes 1.4 % Plasma Cells --------100.0 % Megakaryocytes appear normal with normal morphology.Erythroid maturation appears normoblastic.Myeloid maturation appears crate maker and complete.Macrophages are unremarkable. MARROW BIOPSY: Biopsy [...] Out12/05/2020 InterpretationLymphoid Panel: [place] HP21 [id number] following markers were assayed: CD45 (gate), CD2, CD3, CD4, CD5, CD7,CD8, CD10, CD19, CD20,CD33, CD34, CD38, CD56, CD57, CD64, CD117, CD123, HLA- DR, Morgan, andLambda.# events: [id number]: 99%Flow Cytometry Differential (CD45/SSC)Lymphocyte Liebenthal: 13%CD45 dim Liebenthal: 1%Monocyte Liebenthal: 1%Granulocyte Liebenthal: 75%Nucleated/Erythroid Liebenthal: 6%The lymphocyte gate showsB-cells (CD19): 3%T-cells (CD3): 78%NK-cells (CD3-/CD56+): 17%Morgan/Lambda Ratio: 2.5CD4/CD8 Ratio: 2.0Results: (expressed as % of lymphocyte gate)T-cell Markers: CD2 = 87, CD3 = 78, CD3/CD4 = 46, CD3/CD8 = 22, CD5 = 78,CD7 = 90, CD3/57 = 20B-cell markers: Morgan = 2, Lambda = 1, CD19 = 3, CD20 = 7, CD19/10 = 1,CD19/CD5 = 0,CD38/CD20 = 5Light chain as % of B-Cells: CD19/Morgan = 53, CD19/Lambda = 20CD19/CD5/Morgan = 1, CD19/CD5/Lambda = 0CD19/CD10/Morgan = 9, CD19/CD10/Lambda = 4NK cell Markers: CD56 = 29, CD57 = 29Other Markers: CD10 = 1, CD38 = 72Results: (expressed as % of CD45 dim gate)T-cell Markers: CD2 = 1, CD3 = 1, CD3/CD4 = 1, CD3/CD8 = 0, CD5 = 0, CD7 =4, CD3/57 = 0B-cell markers: Morgan = 1, Lambda = 0, CD19 = 16, CD20 = 4, CD19/10 = 14,CD19/CD5 = 0,CD38/CD20 = 4Light chain as % of B-Cells: CD19/Morgan = 3, CD19/Lambda = 3CD19/CD10/Morgan = 0, CD19/CD10/Lambda = 0NK cell Markers: [...] were developed and theirperformance characteristics determined by [facility] Pathology department.They have not been cleared or approved by the US Food and DrugAdministration. The FDA has determined that such clearance or approval isnot necessary. Name Value Range Interpretation Code Description Data Kayley rce(s) Supporting Document(s) ID Date Data Source [id number] 12/04/2020 10:29:12 AM [facility] Name Value Range Interpretation Code Description Data Kayley rce(s) Supporting Document(s) Leukocytes [#/volume] in Blood by Automated count 4.4 10*3/uL 4-10 [facility] Erythrocytes [#/volume] in Blood by Automated count 3.95 10*6/uL 4.6- 6.1 L [facility] Hemoglobin [Mass/volume] in Blood 12.3 g/dL 13.5-18 L [facility] Hematocrit [Volume Fraction] of Blood by Automated count 35.4 % 4 1-53 L [facility] Erythrocyte mean corpuscular volume [Entitic volume] by Auto mated count 89.6 fL 80-96 [facility] Erythrocyte mean corpuscular hemoglobin [Entitic mass] by Automated count 31.1 pg 27-33 [facility] Erythrocyte mean corpuscular hemoglobin concentration [Mass/volume] by Automated count 34.7 g/dL [facility].0[facility] width [Ratio] by Automated count 14.1 % 11.5-14.5 [facility] Platelets [#/volume] in Blood by Automated count 258 10*3/uL 150-400 [facility] Differential cell count method - Blood [facility] Neutrophils/100 leukocytes in Blood by Automated count 65 % [facility] Lymphocytes/100 leukocytes in Blood by Automated count 20 % [facility] Monocytes/100 leukocytes in Blood by Automated count 13 % [facility] Eosinophils/100 leukocytes in Blood by Automated count 1 % [facility] Basophils/100 leukocytes in Blood by Automated count 1 % [facility] Neutrophils [#/volume] in Blood by Automated count 2.89 10*3/uL 1.8-7 .0 [facility] Lymphocytes [#/volume] in Blood by Automated count 0.90 10*3/uL 1.2-4 .0 L [facility] Monocytes [#/volume] in Blood by Automated count 0.58 10*3/uL 0-0.8 [facility] Eosinophils [#/volume] in Blood by Automated count 0.03 10*3/uL 0-0.5 [facility] Basophils [#/volume] in Blood by Automated count 0.03 10*3/uL 0-0.2 [facility] Nucleated erythrocytes/100 leukocytes [Ratio] in Blood by Automated count 0 /100{WBCs} 0-0 [facility] ID Date Data Source [id number] 12/04/2020 11:04:[address] [facility] Name Value Range Interpretation Code Description Data Kayley rce(s) Supporting Document(s) Albumin [Mass/volume] in Serum or Plasma by Bromocresol green (BCG) dye binding method 4.7 g/dL 3.5-5.2 [facility] Bilirubin.total [Mass/volume] in Serum or Plasma 0.5 mg/dL <1.2 [facility] Calcium [Mass/volume] in Serum or Plasma 9.2 mg/dL 8.8-10.2 [facility] Chloride [Moles/volume] in Serum or Plasma 93 mmol/L 98-107 L [facility] Creatinine [Mass/volume] in Serum or Plasma 0.86 mg/dL 0.70-1.20 [facility] Glucose [Mass/volume] in Serum or Plasma 139 mg/dL 70-140 [facility] Alkaline phosphatase [Enzymatic activity/volume] in Serum or Plasma 80 U/L 40-129 [facility] Potassium [Moles/volume] in Serum or Plasma 4.7 mmol/L 3.4-5.1 [facility] Protein [Mass/volume] in Serum or Plasma 7.4 g/dL 6.4-8.3 [facility] Sodium [Moles/volume] in Serum or Plasma 130 mmol/L 136-145 L [facility] Aspartate aminotransferase [Enzymatic activity/volume] in Serum or Plasma 30 U/L <40 [facility] Urea nitrogen [Mass/volume] in Serum or Plasma 14 mg/dL 8-23 [facility] Osmolality of Serum or Plasma by calculation 273 mosm/kg 275-300 L [facility] Creatinine/Urea nitrogen [Mass Ratio] in Serum or Plasma 16 [facility] Bicarbonate [Moles/volume] in Serum 26 mmol/L 22-29 [facility] Alanine aminotransferase [Enzymatic activity/volume] in Seru m or Plasma 25 U/L <41 [facility] Anion gap 3 in Serum or Plasma 11 mmol/L 8-15 [facility] Glomerular filtration rate/1.73 sq M pre dicted among non-blacks [Volume Rate/Area] in Serum or Plasma by Creatinine-based formula (MDRD) 87 mL/min/1.73m2 >60 [facility] Glomerular filtration rate/1.73 sq M pre dicted among blacks [Volume Rate/Area] in Serum or Plasma by Creatinine-based formula (MDRD) >60 [facility] ID Date Data Source [id number] [facility] Name Value Range Interpretation Code Description Data Kayley rce(s) Supporting Document(s) Urate [Mass/volume] in Serum or Plasma 4.6 mg/dl 3.4-7.0 [facility] ID Date Data Source [id number] 12/04/2020 12:09:55 PM [facility] Name Value Range Interpretation Code Description Data Kayley rce(s) Supporting Document(s) Lactate dehydrogenase [Enzymatic activit y/volume] in Serum or Plasma by Lactate to pyruvate reaction 222 U/L 122-225 [facility] ID Date Data Source [id number] 12/09/2020 09:06:04 PM [facility] Name Value Range Interpretation Code Description Data Kayley rce(s) Supporting Document(s) Tien Ryan virus DNA [#/volume] (viral load) in Serum or Plasma by Probe and target amplification method 148 copies/mL [facility] (NOTE)The quantitative range of this ass ay is 100 to 1 million copies/mL.This test was developed and its performance characteristicsdetermined by [employer]. It has not been cleared or approved by theFood and Drug Administration. Tien Ryan virus DNA [Log #/volume] (v iral load) in Unspecified specimen by Probe and target amplification method 2.170 log10 copy/mL [facility] (NOTE)Performed At: [facility] [address] [place], [place] [id number] Araujo MD Ph:[phone] ID Date Data Source [id number] 12/04/2020 12:30:46 PM [facility] Name Value Range Interpretation Code Description Data Kayley rce(s) Supporting Document(s) Hepatitis A virus IgM Ab [Presence] in Serum or Plasma by Im munoassay Non Reactive [facility] No acute infection, susceptible to infec tion. Hepatitis B virus core IgM Ab [Presence] in Serum or Plasma by Immunoassay Non Reactive [facility] IgM antibodies to HBc were not detected, does not exclude the possibility of exposure to HBV. Hepatitis C virus Ab [Presence] in Serum or Plasma by Immuno assay Non Reactive [facility] No serological evidence of active infect ion. If recent exposure is suspected, test for HCV RNA. Hepatitis B virus surface Ag [Presence] in Serum or Plasma b y Immunoassay Non Reactive [facility] No active or previous infection. Suscept ible to infection. ID Date Data Source [id number] 12/09/2020 04:04:00 PM EDT [facility] Molecular Diagnostics ReportName: ED BROWNMRN: [id number] Number: [id number] Date: 12/04/2020 00:00Received Date: 12/05/2020 14:31Physician(s): ISAI BLAIR MBBS MADHIRA, BHASKARA, MBBSCopy To:FIDE VU MDSpecimen(s) ReceivedA: Bone Marrow - T-cell - [id number] OF STUDY: T-cell Receptor Gamma Chain Gene - PCR AssaySPECIMEN TYPE: Bone Marrow (#[id number])RESULTS: Positive Family I & III / J [...] Gamma Chain gene (van Dongen et al. Ypiromqu17:2305-2949, 2003). A positive result is expected when [...] validated and authorized for clinical useby the [facility] Dept. of Health ([facility]).rw/jsElectronically Signed By Ez Mejia M.D. Attending Pathologist 12/09/2020 16:04:31 Name Value Range Interpretation Code Description Data Kayley rce(s) Supporting Document(s) ID Date Data Source [id number] 12/11/2020 05:55:00 PM [facility] Cytogenetics ReportName: DELBERT OLSONMRN: [id number] Number: [id number] Date: 12/04/2020 00:00Received Date: 12/04/2020 11:54Physician(s): ISAI BLAIR MBBS MADHIRA, BHASKARA, MBBSSpecimemarylu(s) ReceivedA: Bone Marrow - Karyotype analysis and FISHClinical [id number]-[id number] patient with NK T-cell lymphoma.TEST REQUESTED/PERFORMED: Chromosome analysis and fluorescence in situhybridization (FISH) InterpretationChromosome analysis revealed a normal male chromosome complement in allcells analyzed. As no chromosomal abnormalities were detected, the FISHstudy was canceled by Dr. Suresh Vu. Please correlate with the concurrentHematopathology report, [id number]. Electronically Signed By Josr Manley, PhD Attending Pathologist 12/11/2020 17:55:36Results and ISCN (2016) NomenclatureChromosome Ddjvciur82,XY[20] DescriptionA normal male chromosome complement was observed [...] rce(s) Supporting Document(s) ID Date Data Source [id number] 11/11/2020 11:14:00 AM EDT [facility] Name Value Range Interpretation Code Description Data Kayley rce(s) Supporting Document(s) Bacteria identified in Nose by Aerobe culture Laboratory test re sult Normal (applies to non-numeric results) [facility] ([facility]) FULL REPORT IN LAB NOTES ([facility] and [facility] ). NORMAL TIGIST PRESENT ID Date Data Source [id number] 11/11/2020 10:00:00 AM EDT [facility]) Name Value Range Interpretation Code Description Data 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 Please see complete report from [facility] hematopathology department [id number], scanned in EMR under pathology module. 11/20/20201835 [...] process/lymphoma, the case will be sent to [facility] hematopathology department for consultation and [...] La MD 11/14/2020925 ID Date Data Source [id number] 11/11/2020 10:00:00 AM EDT [facility] ([facility], ) Name Value Range Interpretation Code Description Data Kayley rce(s) Supporting Document(s) Surgical pathology study Laboratory test result [facility]) FINAL DIAGNOSIS Left nasal mucosa, biopsy: Collections [...] process/lymphoma, the case will be sent to [facility] hematopathology department for consultation and [...] La MD 11/14/2020908 ID Date Data Source [id number] 11/20/2020 04:47:00 PM EDT [facility] Hematopathology Report See Addendum Prem Briggs: ED OLSONMRN: [id number] Number: [id number] Date: 11/11/2020 00:00Received Date: 11/14/2020 12:54Physician(s): DANIEL LA MD HAGHIR, SHAHANDEH F,MDCopy To:[facility]imen(s) ReceivedA: Slides received for consultation, KB; RECEIVED 4 SLIDES AND 1 BLOCK OFLEFT NASAL MUCOSA BIOPSY LABELED [id number] [facility] DiagnosisA. Left nose, core biopsy: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, nasal typeSsavannahnellthanh Michel M.D.;Resident PathologistElectronically Signed By Nesha Pedraza MD AttendingPathologist 11/20/2020 16:47:04The attending pathologist named above attests that he/she has personallyreviewed the relevant preparation(s) for the specimen(s) and rendered thefinal diagnosis. Addendum 12/17/2020 T-cell PCR is negative for clonal T cells ([id number]). The diagnosisremains unchanged. Addendum Electronically Signed By: [...] were developed and theirperformance characteristics determined by [facility] Pathology department.They have not been cleared or approved by the US Food and DrugAdministration. The FDA has determined that such clearance or approval isnot necessary. Name Value Range Interpretation Code Description Data Kayley rce(s) Supporting Document(s) ID Date Data Source [id number] 12/16/2020 03:31:00 PM [facility] Molecular Diagnostics ReportName: ED BROWNMRN: [id number] Number: [id number] Date: 11/11/2020 00:00Received Date: 12/11/2020 13:22Physician(s): DANIEL LA,DANIEL GREER,MDCopy To:JESSICA FUENTES MDSpecimen(s) ReceivedA: Formalin Fixed Tissue - Left Nasal Mucosa Biopsy - T-cell - [id number] of Study: T-cell Receptor Gamma Chain PCR Assay SPECIMEN TYPE: Formalin Fixed Tissue - left nasal mucosa biopsy(#[id number]), Block # [id number]: Negative Family I & III / J [...] Gamma Chaingene (van Dongen et al. Leukemia 17:7890-5891, 2003). A quality controlamplification showed DNA of [...] and authorized for clinical use by the [facility] Dept.of Health ([facility]).rw/jsElectronically Signed By Ez Mejia M.D. Attending Pathologist 12/16/2020 15:31:09 Name Value Range Interpretation Code Description Data Kayley rce(s) Supporting Document(s) ID Date Data Source [id number] 09/22/2020 02:14:00 PM EDT [facility] ([facility] ) Name Value Range Interpretation Code Description Data Kayley rce(s) Supporting Document(s) Bacteria identified in Nose by Aerobe culture Laboratory test re sult Normal (applies to non-numeric results) [facility] ([facility] ) <content>FULL REPORT IN LAB NOTES [...] FOR ESBL</content>
<content></content> ID Date Data Source [id number] 09/16/2020 08:19:49 AM EDT [facility] Name Value Range Interpretation Code Description Data Kayley rce(s) Supporting Document(s) &PDF [facility] VBMTIh6lKdJMLyQf00/QWResPHTgz6CjQXtfYQp9OTcbOPNlK5DgkRmvXAgQV9gIYmCdG9RPNRlPLxKG vci [file] AgICAgICAgICAgICAgICAgICAgICAgICAgICAgICAgICAgICAgICAgICAgICAgICAgICAgICAgICAgIC AgICAgICAgICANCiAgICAgICAgICAgICAgICAgICAg ICAgICAgICAgICAgICAgICAgICAgICAgICAgICAgICAgICAgICAgICAgICAgICAgICAgICAgICAgICAg ICAgICAgICAgICAgICAgICAgICANCiAgICAgICAgICAgICAgICAgICAgICAgICAgICAgICAgICAgICAg ICAgICAgICAgICAgICAgICAgICAgICAgICAgICAgIC AgICAgICAgICAgICAgICAgICAgICAgICAgICAgICANCiAgICAgICAgICAgICAgICAgICAgICAgICAgIC AgICAgICAgICAgICAgICAgICAgICAgICAgICAgICAgICAgICAgICAgICAgICAgICAgICAgICAgICAgIC AgICAgICAgICAgICANCiAgICAgICAgICAgICAgICAg ICAgICAgICAgICAgICAgICAgICAgICAgICAgICAgICAgICAgICAgICAgICAgICAgICAgICAgICAgICAg ICAgICAgICAgICAgICAgICAgICAgICANCiAgICAgICAgICAgICAgICAgICAgICAgICAgICAgICAgICAg ICAgICAgICAgICAgICAgICAgICAgICAgICAgICAgIC AgICAgICAgICAgICAgICAgICAgICAgICAgICAgICAgICANCiAgICAgICAgICAgICAgICAgICAgICAgIC AgICAgICAgICAgICAgICAgICAgICAgICAgICAgICAgICAgICAgICAgICAgICAgICAgICAgICAgICAgIC AgICAgICAgICAgICAgICANCiAgICAgICAgICAgICAg ICAgICAgICAgICAgICAgICAgICAgICAgICAgICAgICAgICAgICAgICAgICAgICAgICAgICAgICAgICAg ICAgICAgICAgICAgICAgICAgICAgICAgICANCiAgICAgICAgICAgICAgICAgICAgICAgICAgICAgICAg ICAgICAgICAgICAgICAgICAgICAgICAgICAgICAgIC AgICAgICAgICAgICAgICAgICAgICAgICAgICAgICAgICAgICANCiAgICAgICAgICAgICAgICAgICAgIC AgICAgICAgICAgICAgICAgICAgICAgICAgICAgICAgICAgICAgICAgICAgICAgICAgICAgICAgICAgIC AgICAgICAgICAgICAgICAgICANCjw/oSWcY2xavFSx [id number]vhFzYodTAmEqKRPfQxgBAsj0FAurDH5MgERdI0ZjK6UdTWxh WA9CAKGlIKWhyPDdWRVqAZBhEyH7KBWgCFjrLW8EsYZtEXpyHNAkPPIdBqVaMTZmZD9LCJDvQ173qlWn Ab2ZQe1ONrSaEQ1zuk6XVvzdFTOmGhcIFuy3QYwcRW 7HcLSwI9WrnYUfc1mETtDkF5CSCEV2DPIqEf0PSXHqAaClEWFqAEgtFO1wCCIrIXRMbNrqoaU3PV0CVK 2nauOgTD4FUkRgBa7iTh6SGiZfV0ZcW3ZeZPYjERIKWBgjWD0QUAHvYFW9QAGpQjWdIIELAkOlP52cBD 3RL1Yjh80uLdR3XXAgGhVvPTfxTT84wRittfJhaGBl yHqbHB3ABw2+MKqrxwWmCaxBUpypMPRAKnYuRafZGzAyIPJgCDQkVADoZmQ8DjUeFp0NQDLgLMMuAUIh IpJsFWUoWQAaHNteIVWeUQA0WRVhXRNpZQNyAS3NCrRdMFApBVM9WHhmMVZkHHHpoj0DQBEwCAOlSYV2 WsWuYSOcZPVxODdgTFHoADHhRSpsNWRfLYEqBT8SJc RtWEJxJSGdJcKgWBBwEDNnks0BURQvGJLpVsokFlRpMIZjHHEvJEpfOSArPWE0GKB8POSkESMjKP7ARf TkAFUdUPa9GrPaMCPiPXSako3LOQEhMKPhADY2IIXgZFYnHYNpIAhdSNNiWNM8HyVqZRCcEQPmQE3DUg IiTOCsRBVjEOKuREInVVQgfp2HKFWqNFFiIBLsIfXk OGZyVHLgXAlyRGMzUWNkXrQvVPYdRMVnNQ2ZEyGtBIYfCSO3IAcdABUlCHPohq1LGAKmAMNxAGo1ENWz EZCcPWHxRExjGIPrSSCtYYU2EUPrGDUoEQ8VHbOtMBMmSCGuZWYaEIDnJYIzhw0ZUOByADFyIrFdSHZp BCIzXIDuVWcxNIVfFNKjUthxLAXpLYJtKD8BUzUtWZ OlGDM5HLeqSGRvAYBerv3NDPIsRROgURHtVELiWYUjAJKwVItfZMYuSRZ2BoZ7XIQgYIWjAU3YOzSmOF SdPUS1JEEoKPKrBHIkpy3KKPRjAHWhTYj5ZbUrCJIyFUSvJQtiRQUzTIN1CXPhIVAlRTRnXH0NYlEpHM LjYTK9XHatQUTnOHKpfq8WMZVjVJExYfVhVbArCZMb CGStWJi6rgKotLLlFIf3KN0IP1YiwhRoGuuERi7Mx130IBY7GXLtUe5PD5jmVq8wBFFoJCNPYy8EHLq1 Q5I3HOG4TLKaHLZhWtJ0AkH2LpL6Bix8PYLpFqTbIvB+OTxlCiYzRhz2ErP3WtX7LGIeZKxiLPs0SHgu N6QqOYRcZB2mXVEQJi9+NSgnaZDzgAgaKLGHHtZ1FuqxQJmtVYXPCq7O ID Date Data Source [id number] 07/18/2020 08:37:55 PM EDT [facility] Name Value Range Interpretation Code Description Data Kayley rce(s) Supporting Document(s) NT PRO BNP 181 pg/mL (0-125) H [facility] ID Date Data Source [id number] 07/18/2020 08:37:55 PM EDT [facility] Name Value Range Interpretation Code Description Data Kayley rce(s) Supporting Document(s) SODIUM 138 mmol/L (136-145) [facility] POTASSIUM 4.6 mmol/L (3.6-5.2) [facility] CHLORIDE 100 mmol/L (100-108) [facility] CO2 27 mmol/L (22-31) [facility] ANION GAP 11 mmol/L (7-16) [facility] UREA NITROGEN 12 mg/dL (7-24) [facility] CREATININE 0.82 mg/dL (0.80-1.30) [facility] BUN/CREAT RATIO 14.6 RATIO (10.0-20.0) [facility] GLUCOSE 101 mg/dL (70-99) H [facility] CALCIUM 9.2 mg/dL (8.4-10.2) [facility] GFR >60 ml/min/1.73m2 (>59) [facility] GFR ( AMER) >60 ml/min/1.73m2 (>59) [facility] GFR INTERPRETATION [facility] --NORMAL KIDNEY FUNCTION OR MILD DISEASE - GFR >OR= 60CHRONIC KIDNEY DISEASE - GFR 15 - 59RENAL FAILURE - GFR <15 Est. GFR calculation based on the MDRDstudy equation, which assumes a steadystate for creatinine. Est. GFR should notbe used for medication dosing. ID Date Data Source [id number] 07/18/2020 08:26:03 PM EDT [facility] Name Value Range Interpretation Code Description Data Kayley rce(s) Supporting Document(s) WBC 6.1 10*3/uL (4.1-11.0) [facility] [place] RBC 4.48 10*6/uL (4.60-6.10) L [facility] HGB 14.0 g/dL (13.5-18.0) [facility] HCT 42.0 % (41.0-53.0) [facility] MCV 93.7 fL (80.0-95.0) [facility] MCH 31.1 pg (27.0-32.0) [facility] MCHC 33.2 g/dL (32.0-36.0) [facility] RDW 13.6 % (10.5-14.5) [facility] PLT 262 10*3/uL (150-450) [facility] MPV 8.9 fL (7.1-10.7) [facility] ID Date Data Source [id number] 06/09/2020 01:09:00 PM EDT [facility] ([facility], ) Name Value Range Interpretation Code Description Data Kayley rce(s) Supporting Document(s) Surgical pathology study Laboratory test result [facility] ([facility], ) FINAL DIAGNOSIS A - Sinus contents, [...] & APTT 06/05/2020 12:00:00 AM EDT eCW1 ([facility]) Name Value Range Interpretation Code Description Data Kayley rce(s) Supporting Document(s) 13.2 12.5-14.3 eCW1 ([facility]) 0.99 eCW1 ([facility]) 26.8 24.2-38.5 eCW1 ([facility]) ID Date Data Source [id number] 06/05/2020 12:00:00 AM EDT eCW1 ([facility]) Name Value Range Interpretation Code Description Data Kayley rce(s) Supporting Document(s) Hemoglobin A1c/Hemoglobin.total in Blood 5.5 eCW1 ([facility]) ID Date Data Source Comprehensive Metabolic Profile (CMP) 06/05/2020 12:00:00 AM EDT eCW1 ([facility]) Name Value Range Interpretation Code Description Data Kayley rce(s) Supporting Document(s) 0.72 0.70-1.30 CREATININE FOR GFR eCW1 ([facility]) 106 70-100 GLUCOSE, FASTING eCW1 ([facility]) 13 7-18 BLOOD UREA NITROGEN eCW1 ([facility]) 138 136-145 SODIUM LEVEL eCW1 ([facility]) 101 98-107 CHLORIDE LEVEL eCW1 ([facility]) > 60.0 >49 GLOMERULAR FILTRATION RATE eCW 1 ([facility]) 4.5 3.5-5.1 POTASSIUM SERUM eCW1 ([facility]) 24 7-37 AST/SGOT eCW1 ([facility]) 37 12-78 ALT/SGPT eCW1 ([facility]) 9.2 8.8-10.2 CALCIUM LEVEL eCW1 ([facility]) 31 21-32 CARBON DIOXIDE LEVEL eCW1 ([facility]) 4.2 3.2-5.2 ALBUMIN eCW1 ([facility]) 0.7 0.2-1.0 BILIRUBIN,TOTAL eCW1 ([facility]) 7.6 6.4-8.2 TOTAL PROTEIN eCW1 ([facility]) 70 45-117 ALKALINE PHOSPHATASE eCW1 ([facility]) 1.2 ALBUMIN/GLOBULIN RATIO eCW1 ([facility]) ID Date Data Source CBC with Differential 06/05/2020 12:00:00 AM EDT eCW1 ([facility]) Name Value Range Interpretation Code Description Data Kayley rce(s) Supporting Document(s) 8.8 4.0-10.0 WHITE BLOOD COUNT eCW1 ([facility]) 4.58 4.30-6.10 RED BLOOD COUNT eCW1 ([facility]) 30.3 27.0-33.0 MEAN CORPUSCULAR HEMOGLOB IN eCW1 ([facility]) 92.4 80.0-96.0 MEAN CORPUSCULAR VOLUME e CW1 ([facility]) 42.3 42.0-52.0 HEMATOCRIT eCW1 ([facility]) 13.9 13.5-17.5 HEMOGLOBIN eCW1 ([facility]) 32.9 32.0-36.5 MEAN CORPUSCULAR HGB CONC eCW1 ([facility]) 291 150-450 PLATELET COUNT, AUTOMATED eCW1 ([facility]) 13.9 11.5-14.5 RED CELL DISTRIBUTION WID TH eCW1 ([facility]) 9.9 2.0-8.0 MONO % eCW1 ([facility]) 0.0 0.0-3.0 EOS % eCW1 ([facility]) 76.8 36.0-66.0 NEUTROPHILS % eCW1 ([facility]) 12.5 24.0-44.0 LYMPH % eCW1 ([facility]) 0.9 0.0-0.8 MONO # eCW1 ([facility]) 1.1 1.5-5.0 LYMPH # eCW1 ([facility]) 6.8 1.5-8.5 NEUTROPHILS # eCW1 ([facility]) 0.2 0.0-1.0 BASO % eCW1 ([facility]) 0.0 0.0-0.5 EOS # eCW1 ([facility]) 0.0 0.0-0.2 BASO # eCW1 ([facility]) ID Date Data Source NT-PRO BNP 06/05/2020 12:00:00 AM EDT eCW1 ([facility]) Name Value Range Interpretation Code Description Data Kayley rce(s) Supporting Document(s) 285 <125 eCW1 ([facility]) ID Date Data Source [id number] 06/04/2020 12:25:00 PM EDT [facility] Name Value Range Interpretation Code Description Data Kayley rce(s) Supporting Document(s) SARS coronavirus 2 RNA Detected [facility] This lab was ordered by [facility] and reported by [facility]. ID Date Data Source [id number] 05/13/2020 12:09:00 PM EST [facility] ([facility], ) Name Value Range Interpretation Code Description Data Kayley rce(s) Supporting Document(s) Creatinine For GFR 0.66 mg/dL 0.70-1.30 Below low normal [facility] ([facility], ) Glomerular Filtration Rate Laboratory test result Normal (applies to non- numeric results) [facility] ([facility], ) <content>Units are mL/min/1.73 m2</content>
<content></content>
<content>Chronic Kidney Disease Staging per NKF:</content>
<content></content>
<content>Stage I & II GFR >=60 Normal to Mildly Decreased</content>
<content>Stage III GFR 30- 59 Moderately Decreased</content>
<content>Stage IV GFR 15-29 Severely Decreased</content>
<content>Stage V GFR <15 Very Little GFR Left</content>
<content>ESRD GFR <15 on CHARGING MANIPULATOR</content>
<content></content> ID Date Data Source [id number] 05/13/2020 12:09:00 PM EST [facility] ([facility], ) Name Value Range Interpretation Code Description Data Kayley rce(s) Supporting Document(s) Urea nitrogen [Mass/volume] in Serum or Plasma 6 mg/dL 7-18 Below low normal [facility] ([facility]) ID Date Data Source [id number] 05/12/2020 01:30:00 PM EST [facility] ([facility]) Name Value Range Interpretation Code Description Data Kayley rce(s) Supporting Document(s) Surgical pathology study Laboratory test result [facility] ([facility]) FINAL DIAGNOSIS Nasal polyp, left, removal: Inflammatory [...] MD 05/16/2020 1246 ID Date Data Source [id number] 03/04/2020 12:00:00 AM EST [facility] Name Value Range Interpretation Code Description Data Kayley rce(s) Supporting Document(s) SARS-CoV2 Rapid Antigen [facility] This lab was reported by Alexis Dale. ID Date Data Source HEPATITIS A IgG 02/27/2020 12:00:00 AM EST eCW1 ([facility]) Name Value Range Interpretation Code Description Data Kayley rce(s) Supporting Document(s) Negative Negative HEPATITIS A IgG TOTAL eCW 1 ([facility]) ID Date Data Source HEPATITIS C VIRUS AB SCRN MEDICARE 02/27/2020 12:00:00 AM ES T eCW1 ([facility]) Name Value Range Interpretation Code Description Data Kayley rce(s) Supporting Document(s) 0.1 <0.8 HEP C VIRUS AB SCREEN MED ICARE eCW1 ([facility]) ID Date Data Source HEPATITIS B SURFACE ANTIGEN 02/27/2020 12:00:00 AM EST eCW1 ([facility]) Name Value Range Interpretation Code Description Data Kayley rce(s) Supporting Document(s) NEGATIVE NEGATIVE HEPATITIS B SURFACE ANTIG EN eCW1 ([facility]) ID Date Data Source HEPATITIS B SURFACE ANTIBODY 02/27/2020 12:00:00 AM EST eCW1 ([facility]) Name Value Range Interpretation Code Description Data Kayley rce(s) Supporting Document(s) NEGATIVE POSITIVE HEPATITIS B SURFACE ANTIB TRI eCW1 ([facility]) ID Date Data Source HEPATITIS A ANTIBODY IGM 02/27/2020 12:00:00 AM EST eCW1 ([facility]) Name Value Range Interpretation Code Description Data Kayley rce(s) Supporting Document(s) NEGATIVE NEGATIVE HEPATITIS A ANTIBODY IGM eCW1 ([facility]) ID Date Data Source CT Maxillofacial w/out Contrast 02/19/2020 12:00:00 AM EST e CW1 ([facility]) Name Value Range Interpretation Code Description Data Kayley rce(s) Supporting Document(s) eCW1 ([facility]) ID Date Data Source PSA SCREENING 02/12/2020 12:00:00 AM EST eCW1 ([facility]) Name Value Range Interpretation Code Description Data Kayley rce(s) Supporting Document(s) 1.71 < 4.00 eCW1 ([facility]) ID Date Data Source LIPID PANEL (CARDIAC RISK) 02/12/2020 12:00:00 AM EST eCW1 ( [facility]) Name Value Range Interpretation Code Description Data Kayley rce(s) Supporting Document(s) Triglyceride [Mass/volume] in Serum or Plasma by calculation 82 <150 eCW1 ([facility]) Cholesterol in LDL [Mass/volume] in Serum or Plasma by calculation 71 <100 eCW1 ([facility]) 87 eCW1 ([facility]) Cholesterol in HDL [Moles/volume] in Serum or Plasma 97 >40 eCW1 ([facility]) Cholesterol [Moles/volume] in Serum or Plasma 184 <200 eCW1 ([facility]) 1.896 <5 eCW1 ([facility]) ID Date Data Source FREE T4 & TSH PANEL 02/12/2020 12:00:00 AM EST eCW1 ([facility]) Name Value Range Interpretation Code Description Data Kayley rce(s) Supporting Document(s) 0.528 0.358-3.740 eCW1 ([facility]) 0.99 0.76-1.46 eCW1 ([facility]) ID Date Data Source CPK CREATINE PHOSPHOKINASE 02/12/2020 12:00:00 AM EST eCW1 ( [facility]) Name Value Range Interpretation Code Description Data Kayley rce(s) Supporting Document(s) [id number] eCW1 ([facility]) Procedure Social History Code Duration Value Status Description Data Source(s ) Smoking 12/28/2020 12:00:00 AM EDT Former Smoker completed Former Smoker eCW1 ([facility]) Smoking 12/28/2020 12:00:00 AM EDT Former Smoker completed Former Smoker eCW1 ([facility]) Smoking 12/28/2020 12:00:00 AM EDT Former Smoker completed Former Smoker eCW1 ([facility]) Smoking 12/23/2020 12:00:00 AM EDT Former Smoker completed Former Smoker eCW1 ([facility]) Smoking 12/02/2020 12:00:00 AM EDT Former Smoker completed Former Smoker eCW1 ([facility]) Smoking 12/02/2020 12:00:00 AM EDT Former Smoker completed Former Smoker eCW1 ([facility]) Smoking 12/02/2020 12:00:00 AM EDT Former Smoker completed Former Smoker eCW1 ([facility]) Alcohol intake 07/18/2020 12:00:00 AM EDT Current drinker of al cohol (finding) completed Current drinker of alcohol (finding) [facility] Smoking 06/05/2020 12:00:00 AM EDT Former Smoker completed Former Smoker eCW1 ([facility]) Smoking 06/05/2020 12:00:00 AM EDT Former Smoker completed Former Smoker eCW1 ([facility]) Smoking 06/05/2020 12:00:00 AM EDT Former Smoker completed Former Smoker eCW1 ([facility]) Smoking 06/05/2020 12:00:00 AM EDT Former Smoker completed Former Smoker eCW1 ([facility]) Smoking 06/05/2020 12:00:00 AM EDT Former Smoker completed Former Smoker eCW1 ([facility]) Smoking 02/27/2020 12:00:00 AM EST Former Smoker completed Former Smoker eCW1 ([facility]) Smoking 02/27/2020 12:00:00 AM EST Former Smoker completed Former Smoker eCW1 ([facility]) Smoking 02/27/2020 12:00:00 AM EST Former Smoker completed Former Smoker eCW1 ([facility]) Smoking 02/27/2020 12:00:00 AM EST Former Smoker completed Former Smoker eCW1 ([facility]) Smoking 02/19/2020 12:00:00 AM EST Former Smoker completed Former Smoker eCW1 ([facility]) Smoking 02/19/2020 12:00:00 AM EST Former Smoker completed Former Smoker eCW1 ([facility]) Smoking 02/12/2020 12:00:00 AM EST Former Smoker completed Former Smoker eCW1 ([facility]) Alcohol intake 01/15/2020 12:00:00 AM EST Yes completed [facility] Cigarette pack-years 01/15/2020 12:00:00 AM EST UNK completed [facility] Cigarettes smoked current (pack per day) - Reported 01/15/20 20 12:00:00 AM EST UNK completed [facility] Smoking 01/15/2020 12:00:00 AM EST Former smoker completed Former smoker [facility] Smoking 01/01/2020 12:00:00 AM EDT Former Smoker completed Former Smoker eCW1 ([facility]) Smoking 01/01/2020 12:00:00 AM EDT Former Smoker completed Former Smoker eCW1 ([facility]) Smoking 01/01/2020 12:00:00 AM EDT Former Smoker completed Former Smoker eCW1 ([facility]) Smoking 01/01/2020 12:00:00 AM EDT Former Smoker completed Former Smoker eCW1 ([facility]) Vital Signs ID Date Data Source UNK Name Value Range Interpretation Code Description Data Source(s) Body weight 86.184 kg 86.184 kg [facility] ([facility]) Body height 68 [in_i] 68 [in_i] [facility] ([facility]) 5'8" Body weight 190.00 [lb_av] 190.00 [lb_av] [facility] T ([facility]) Body mass index (BMI) [Ratio] 28.9 kg/m2 28.9 k g/m2 [facility] ([facility]) [place] body weight 154 [lb_av] 154 [lb_av] [facility] ([facility]) Body surface area Derived from formula 2.00 m2 2.00 m2 [facility] ([facility]) Body weight 188 [lb_av] 188 [lb_av] eCW1 ([facility]) Body weight 85.28 kg 85.28 kg W1 ([facility]) Body height 70.5 [in_i] 70.5 [in_i] eCW1 ([facility]) Body mass index (BMI) [Ratio] 26.59 kg/m2 26.59 kg/m2 [facility] ([facility]) Heart rate 67 /min 67 /min W1 ([facility]) Respiratory rate 18 /min 18 /min W1 ([facility]) Body temperature 99 [degF] 99 [degF] eCW1 ([facility]) Systolic blood pressure 128 mm[Hg] 128 mm[Hg] e CW1 ([facility]) Diastolic blood pressure 62 mm[Hg] 62 mm[Hg] eCW1 ([facility]) Systolic blood pressure 118 mm[Hg] 118 mm[Hg] M [facility] ([facility]) Diastolic blood pressure 80 mm[Hg] 80 mm[Hg] [facility] ([facility]) Body mass index (BMI) [Ratio] 29.2 kg/m2 29.2 k g/m2 [facility] ([facility]) Body weight 87.091 kg 87.091 kg [facility] ([facility]) Heart rate 67 /min 67 /min [facility] ([facility]) Oxygen saturation in Arterial blood by Pulse oximetry 98 % 98 % [facility] ([facility]) Body temperature 99.9 [degF] 99.9 [degF] [facility] ([facility]) Body height 68 [in_i] 68 [in_i] [facility] ([facility]) 5'8" Body weight 192.00 [lb_av] 192.00 [lb_av] [facility] T ([facility]) [place] body weight 154 [lb_av] 154 [lb_av] [facility] ([facility]) Body surface area Derived from formula 2.01 m2 2.01 m2 [facility] ([facility]) Body weight 192 [lb_av] 192 [lb_av] eCW1 ([facility]) Body weight 87.09 kg 87.09 kg W1 ([facility]) Body height 70.5 [in_i] 70.5 [in_i] eCW1 ([facility]) Body mass index (BMI) [Ratio] 27.16 kg/m2 27.16 kg/m2 W1 ([facility]) Heart rate 72 /min 72 /min eCW1 ([facility]) Respiratory rate 18 /min 18 /min eCW1 ([facility]) Body temperature 98.9 [degF] 98.9 [degF] eCW1 ( [facility]) Systolic blood pressure 144 mm[Hg] 144 mm[Hg] e CW1 ([facility]) Diastolic blood pressure 72 mm[Hg] 72 mm[Hg] eCW1 ([facility]) Heart rate 68 /min 68 /min [facility] ([facility]) Oxygen saturation in Arterial blood by Pulse oximetry 97 % 97 % [facility] ([facility]) Body weight 87.545 kg 87.545 kg [facility] ([facility]) Body surface area Derived from formula 2.01 m2 2.01 m2 [facility] ([facility]) Body temperature 99.4 [degF] 99.4 [degF] [facility] ([facility]) Body height 68 [in_i] 68 [in_i] [facility] ([facility]) 5'8" Body weight 193.00 [lb_av] 193.00 [lb_av] [facility] ([facility]) Body mass index (BMI) [Ratio] 29.3 kg/m2 29.3 k g/m2 [facility] ([facility]) [place] body weight 154 [lb_av] 154 [lb_av] [facility] ([facility]) Systolic blood pressure 128 mm[Hg] 128 mm[Hg] [facility] ([facility]) Diastolic blood pressure 70 mm[Hg] 70 mm[Hg] [facility] ([facility]) Body temperature 100.1 [degF] 100.1 [degF] [facility] ([facility]) Body height 68 [in_i] 68 [in_i] [facility] ([facility]) 5'8" Heart rate 70 /min 70 /min [facility] ([facility]) Oxygen saturation in Arterial blood by Pulse oximetry 98 % 98 % [facility] ([facility]) Systolic blood pressure 130 mm[Hg] 130 mm[Hg] [facility] ([facility]) Diastolic blood pressure 90 mm[Hg] 90 mm[Hg] [facility] ([facility]) Body weight 188.00 [lb_av] 188.00 [lb_av] [facility] ([facility]) Body mass index (BMI) [Ratio] 28.6 kg/m2 28.6 k g/m2 [facility] ([facility]) [place] body weight 154 [lb_av] 154 [lb_av] [facility] ([facility]) Body weight 85.277 kg 85.277 kg [facility] ([facility]) Body surface area Derived from formula 1.99 m2 1.99 m2 [facility] ([facility]) Body height 68 [in_i] 68 [in_i] [facility] ([facility]) 5'8" Body weight 85.730 kg 85.730 kg [facility] ([facility]) Body surface area Derived from formula 2.00 m2 2.00 m2 [facility] ([facility]) Body mass index (BMI) [Ratio] 28.7 kg/m2 28.7 k g/m2 [facility] ([facility]) [place] body weight 154 [lb_av] 154 [lb_av] [facility] ([facility]) Body weight 189.00 [lb_av] 189.00 [lb_av] [facility] ([facility]) Body mass index (BMI) [Ratio] 29.0 kg/m2 29.0 k g/m2 [facility] ([facility]) [place] body weight 154 [lb_av] 154 [lb_av] [facility] ([facility]) Body weight 86.638 kg 86.638 kg [facility] ([facility]) Body surface area Derived from formula 2.00 m2 2.00 m2 [facility] ([facility]) Body height 68 [in_i] 68 [in_i] [facility] ([facility]) 5'8" Body weight 191.00 [lb_av] 191.00 [lb_av] [facility] ([facility]) Body surface area Derived from formula 2.00 m2 2.00 m2 [facility] ([facility]) Body weight 86.184 kg 86.184 kg [facility] ([facility]) [place] body weight 154 [lb_av] 154 [lb_av] [facility] ([facility]) Body height 68 [in_i] 68 [in_i] [facility] ([facility]) 5'8" Body weight 190.00 [lb_av] 190.00 [lb_av] [facility] ([facility]) Body mass index (BMI) [Ratio] 28.9 kg/m2 28.9 k g/m2 [facility] ([facility]) Body surface area Derived from formula 2.00 m2 2.00 m2 [facility] ([facility]) [place] body weight 154 [lb_av] 154 [lb_av] [facility] ([facility]) Body weight 86.184 kg 86.184 kg [facility] ([facility]) Body mass index (BMI) [Ratio] 28.9 kg/m2 28.9 k g/m2 [facility] ([facility]) Body height 68 [in_i] 68 [in_i] MEDENT ([facility]) 5'8" Body weight 190.00 [lb_av] 190.00 [lb_av] MEDEN T ([facility]) Body mass index (BMI) [Ratio] 28.9 kg/m2 28.9 k g/m2 [facility] ([facility]) [place] body weight 154 [lb_av] 154 [lb_av] MEDEN T ([facility]) Body weight 86.184 kg 86.184 kg [facility] ([facility]) Body surface area Derived from formula 2.00 m2 2.00 m2 [facility] ([facility]) Body height 68 [in_i] 68 [in_i] MEDENT ([facility]) 5'8" Body weight 190.00 [lb_av] 190.00 [lb_av] MEDEN T ([facility]) Systolic blood pressure 120 mm[Hg] 120 mm[Hg] [facility] Diastolic blood pressure 68 mm[Hg] 68 mm[Hg] [facility] Heart rate 67 /min 67 /min [facility] Body height 180.3 cm 180.3 cm [facility] Body weight 85.73 kg 85.73 kg [facility] Body mass index (BMI) [Ratio] 26.36 kg/m2 26.36 kg/m2 [facility] Oxygen saturation in Arterial blood by Pulse oximetry 97 % 97 % [facility] Systolic blood pressure 126 mm[Hg] 126 mm[Hg] [facility] ([facility]) Diastolic blood pressure 76 mm[Hg] 76 mm[Hg] [facility] ([facility]) [place] body weight 154 [lb_av] 154 [lb_av] [facility] ([facility]) Body weight 86.638 kg 86.638 kg [facility] ([facility]) Oxygen saturation in Arterial blood by Pulse oximetry 98 % 98 % [facility] ([facility]) Room Air Body height 68 [in_i] 68 [in_i] [facility] ([facility]) 5'8" Body weight 191.00 [lb_av] 191.00 [lb_av] [facility] ([facility]) Body mass index (BMI) [Ratio] 29.0 kg/m2 29.0 k g/m2 [facility] ([facility]) Body surface area Derived from formula 2.00 m2 2.00 m2 [facility] ([facility]) Heart rate 66 /min 66 /min [facility] ([facility]) Oxygen saturation in Arterial blood by Pulse oximetry 98 % 98 % [facility] ([facility]) Room Air Body height 68 [in_i] 68 [in_i] [facility] ([facility]) 5'8" Body weight 191.00 [lb_av] 191.00 [lb_av] [facility] ([facility]) Body mass index (BMI) [Ratio] 29.0 kg/m2 29.0 k g/m2 [facility] ([facility]) [place] body weight 154 [lb_av] 154 [lb_av] [facility] ([facility]) Body weight 86.638 kg 86.638 kg [facility] ([facility]) Body surface area Derived from formula 2.00 m2 2.00 m2 [facility] ([facility]) Body surface area Derived from formula 1.99 m2 1.99 m2 [facility] ([facility]) Body height 68 [in_i] 68 [in_i] [facility] ([facility]) 5'8" Body weight 188.00 [lb_av] 188.00 [lb_av] [facility] ([facility]) Body mass index (BMI) [Ratio] 28.6 kg/m2 28.6 k g/m2 [facility] ([facility]) [place] body weight 154 [lb_av] 154 [lb_av] [facility] ([facility]) Body weight 85.277 kg 85.277 kg [facility] ([facility]) Diastolic blood pressure 70 mm[Hg] 70 mm[Hg] [facility] ([facility]) Heart rate 69 /min 69 /min [facility] ([facility]) Systolic blood pressure 120 mm[Hg] 120 mm[Hg] [facility] ([facility]) Oxygen saturation in Arterial blood by Pulse oximetry 97 % 97 % [facility] ([facility]) Room Air Body height 68 [in_i] 68 [in_i] [facility] ([facility]) 5'8" Body weight 188.00 [lb_av] 188.00 [lb_av] [facility] ([facility]) Body mass index (BMI) [Ratio] 28.6 kg/m2 28.6 k g/m2 [facility] ([facility]) [place] body weight 154 [lb_av] 154 [lb_av] [facility] ([facility]) Body weight 85.277 kg 85.277 kg [facility] ([facility]) Body surface area Derived from formula 1.99 m2 1.99 m2 [facility] ([facility]) Body mass index (BMI) [Ratio] 28.3 kg/m2 28.3 k g/m2 [facility] ([facility]) Body height 68 [in_i] 68 [in_i] [facility] ([facility]) 5'8" Body weight 186.00 [lb_av] 186.00 [lb_av] [facility] ([facility]) [place] body weight 154 [lb_av] 154 [lb_av] [facility] ([facility]) Body weight 84.370 kg 84.370 kg [facility] ([facility]) Body surface area Derived from formula 1.98 m2 1.98 m2 [facility] ([facility]) Body height 68 [in_i] 68 [in_i] [facility] ([facility]) 5'8" Body weight 186.00 [lb_av] 186.00 [lb_av] [facility] ([facility]) Body mass index (BMI) [Ratio] 28.3 kg/m2 28.3 k g/m2 [facility] ([facility]) [place] body weight 154 [lb_av] 154 [lb_av] [facility] ([facility]) Body weight 84.370 kg 84.370 kg [facility] ([facility]) Body surface area Derived from formula 1.98 m2 1.98 m2 [facility] ([facility]) Body weight 189.4 [lb_av] 189.4 [lb_av] eCW1 ([facility]) Body height 70.5 [in_i] 70.5 [in_i] eCW1 ([facility]) Body mass index (BMI) [Ratio] 26.79 kg/m2 26.79 kg/m2 [facility] ([facility]) Heart rate 83 /min 83 /min eCW1 ([facility]) Respiratory rate 20 /min 20 /min eCW1 ([facility]) Body temperature 99.5 [degF] 99.5 [degF] eCW1 ( [facility]) Systolic blood pressure 138 mm[Hg] 138 mm[Hg] e CW1 ([facility]) Diastolic blood pressure 72 mm[Hg] 72 mm[Hg] eCW1 ([facility]) Body height 68 [in_i] 68 [in_i] [facility] ([facility]) 5'8" Body weight 186.00 [lb_av] 186.00 [lb_av] [facility] ([facility]) Body mass index (BMI) [Ratio] 28.3 kg/m2 28.3 k g/m2 [facility] ([facility]) [place] body weight 154 [lb_av] 154 [lb_av] [facility] ([facility]) Body weight 84.370 kg 84.370 kg [facility] ([facility]) Body surface area Derived from formula 1.98 m2 1.98 m2 [facility] ([facility]) Body height 68 [in_i] 68 [in_i] [facility] ([facility]) 5'8" Body weight 186.00 [lb_av] 186.00 [lb_av] [facility] ([facility]) Body mass index (BMI) [Ratio] 28.3 kg/m2 28.3 k g/m2 [facility] ([facility]) [place] body weight 154 [lb_av] 154 [lb_av] [facility] ([facility]) Body weight 84.370 kg 84.370 kg [facility] ([facility]) Body surface area Derived from formula 1.98 m2 1.98 m2 [facility] ([facility]) Body height 68 [in_i] 68 [in_i] [facility] ([facility]) 5'8" Body weight 186.00 [lb_av] 186.00 [lb_av] [facility] ([facility]) Body mass index (BMI) [Ratio] 28.3 kg/m2 28.3 k g/m2 [facility] ([facility]) [place] body weight 154 [lb_av] 154 [lb_av] [facility] ([facility]) Body weight 84.370 kg 84.370 kg [facility] ([facility]) Body surface area Derived from formula 1.98 m2 1.98 m2 [facility] ([facility]) Body height 68 [in_i] 68 [in_i] [facility] ([facility]) 5'8" Body weight 186.00 [lb_av] 186.00 [lb_av] [facility] ([facility]) Body mass index (BMI) [Ratio] 28.3 kg/m2 28.3 k g/m2 [facility] ([facility]) [place] body weight 154 [lb_av] 154 [lb_av] [facility] ([facility]) Body weight 84.370 kg 84.370 kg [facility] ([facility]) Body surface area Derived from formula 1.98 m2 1.98 m2 [facility] ([facility]) Systolic blood pressure 144 mm[Hg] 144 mm[Hg] M [facility] ([facility] Diastolic blood pressure 79 mm[Hg] 79 mm[Hg] [facility] ([facility]) Oxygen saturation in Arterial blood by Pulse oximetry 96 % 96 % [facility] ([facility]) Heart rate 65 /min 65 /min [facility] ([facility] Body temperature 98.7 [degF] 98.7 [degF] [facility] ([facility]) Body weight 182.00 [lb_av] 182.00 [lb_av] [facility] ([facility]) Respiratory rate 16 /min 16 /min [facility] ( [facility] Body weight 192.6 [lb_av] 192.6 [lb_av] eCW1 ([facility]) Body height 70.5 [in_i] 70.5 [in_i] eCW1 ([facility]) Body mass index (BMI) [Ratio] 27.24 kg/m2 27.24 kg/m2 eCW1 ([facility]) Heart rate 74 /min 74 /min eCW1 ([facility]) Respiratory rate 18 /min 18 /min eCW1 ([facility]) Body temperature 98.7 [degF] 98.7 [degF] eCW1 ( [facility]) Systolic blood pressure 140 mm[Hg] 140 mm[Hg] e CW1 ([facility]) Diastolic blood pressure 66 mm[Hg] 66 mm[Hg] eCW1 ([facility]) Oxygen saturation in Arterial blood by Pulse oximetry 99 % 99 % [facility] ([facility]) Body mass index (BMI) [Ratio] 29.2 kg/m2 29.2 k g/m2 [facility] ([facility]) Body surface area Derived from formula 2.01 m2 2.01 m2 [facility] ([facility]) [place] body weight 154 [lb_av] 154 [lb_av] [facility] ([facility]) Body weight 87.091 kg 87.091 kg [facility] ([facility]) Body temperature 98.5 [degF] 98.5 [degF] [facility] ([facility]) Body height 68 [in_i] 68 [in_i] [facility] ([facility]) 5'8" Body weight 192.00 [lb_av] 192.00 [lb_av] [facility] ([facility]) Systolic blood pressure 130 mm[Hg] 130 mm[Hg] M [facility] ([facility]) Diastolic blood pressure 72 mm[Hg] 72 mm[Hg] [facility] ([facility]) Heart rate 70 /min 70 /min [facility] ([facility]) Body weight 192 [lb_av] 192 [lb_av] eCW1 ([facility]) Body height 70.5 [in_i] 70.5 [in_i] eCW1 ([facility]) Body mass index (BMI) [Ratio] 27.16 kg/m2 27.16 kg/m2 eCW1 ([facility]) Heart rate 79 /min 79 /min eCW1 ([facility]) Respiratory rate 18 /min 18 /min eCW1 ([facility]) Body temperature 99.6 [degF] 99.6 [degF] eCW1 ( [facility]) Systolic blood pressure 132 mm[Hg] 132 mm[Hg] e CW1 ([facility]) Diastolic blood pressure 74 mm[Hg] 74 mm[Hg] eCW1 ([facility]) Systolic blood pressure 148 mm[Hg] 148 mm[Hg] [facility] Diastolic blood pressure 82 mm[Hg] 82 mm[Hg] [facility] Heart rate 70 /min 70 /min [facility] Body height 180.3 cm 180.3 cm [facility] Body weight 86.183 kg 86.183 kg [facility] Body mass index (BMI) [Ratio] 26.50 kg/m2 26.50 kg/m2 [facility] Oxygen saturation in Arterial blood by Pulse oximetry 98 % 98 % [facility] Body height 70.5 [in_i] 70.5 [in_i] eCW1 ([facility]) Heart rate 88 /min 88 /min eCW1 ([facility]) Body weight 186 [lb_av] 186 [lb_av] eCW1 ([facility]) Body temperature 99.2 [degF] 99.2 [degF] W1 ( [facility]) Body mass index (BMI) [Ratio] 26.31 kg/m2 26.31 kg/m2 W1 ([facility]) Systolic blood pressure 128 mm[Hg] 128 mm[Hg] e CW1 ([facility]) Diastolic blood pressure 70 mm[Hg] 70 mm[Hg] eCW1 ([facility]) Respiratory rate 18 /min 18 /min eCW1 ([facility]) Systolic blood pressure 118 mm[Hg] 118 mm[Hg] M [facility] ([facility], ) Diastolic blood pressure 78 mm[Hg] 78 mm[Hg] [facility] ([facility], ) Heart rate 66 /min 66 /min [facility] ([facility], ) Oxygen saturation in Arterial blood by Pulse oximetry 98 % 98 % [facility] ([facility], ) Room Air Body height 68 [in_i] 68 [in_i] [facility] ([facility], ) 5'8" Body weight 190.00 [lb_av] 190.00 [lb_av] [facility] T ([facility], ) Body mass index (BMI) [Ratio] 28.9 kg/m2 28.9 k g/m2 [facility] ([facility]) [place] body weight 154 [lb_av] 154 [lb_av] [facility] ([facility]) Body weight 86.184 kg 86.184 kg [facility] ([facility]) Body surface area Derived from formula 2.00 m2 2.00 m2 [facility] ([facility]) Patient Treatment Plan of Care Planned Activity Planned Date Details Description Data Source (s) voriconazole 200 MG Oral Tablet 12/02/2020 12:00:00 AM EDT eCW1 ([facility]) voriconazole 200 MG Oral Tablet 12/02/2020 12:00:00 AM EDT eCW1 ([facility]) voriconazole 200 MG Oral Tablet 12/02/2020 12:00:00 AM EDT eCW1 ([facility]) Hydrochlorothiazide 12.5 MG Oral Tablet 09/12/2020 12:00:00 AM EDT [facility] Simvastatin 40 MG Oral Tablet 09/04/2020 12:00:00 AM EDT [facility] Lisinopril 40 MG Oral Tablet 06/18/2020 12:00:00 AM EDT [facility] Aspir-Low 81 MG 03/11/2020 12:00:00 AM EST eCW1 ([facility]) Aspir-Low 81 MG 03/11/2020 12:00:00 AM EST eCW1 ([facility]) Aspir-Low 81 MG 03/11/2020 12:00:00 AM EST eCW1 ([facility]) Aspir-Low 81 MG 03/11/2020 12:00:00 AM EST eCW1 ([facility]) Doxycycline Monohydrate 100 MG Oral Capsule 02/18/2020 12:00:00 AM EST eCW1 ([facility]) Doxycycline Monohydrate 100 MG Oral Capsule 02/18/2020 12:00:00 AM EST eCW1 ([facility]) Doxycycline Monohydrate 100 MG Oral Capsule 02/18/2020 12:00:00 AM EST eCW1 ([facility]) Doxycycline Monohydrate 100 MG Oral Capsule 02/18/2020 12:00:00 AM EST eCW1 ([facility]) Doxycycline Monohydrate 100 MG Oral Capsule 02/18/2020 12:00:00 AM EST eCW1 ([facility]) Doxycycline Monohydrate 100 MG Oral Capsule 02/18/2020 12:00:00 AM EST eCW1 ([facility]) Doxycycline Monohydrate 100 MG Oral Capsule 02/18/2020 12:00:00 AM EST eCW1 ([facility]) Doxycycline Monohydrate 100 MG Oral Capsule 02/18/2020 12:00:00 AM EST eCW1 ([facility]) Doxycycline Monohydrate 100 MG Oral Capsule 02/18/2020 12:00:00 AM EST eCW1 ([facility]) Doxycycline Monohydrate 100 MG Oral Capsule 02/18/2020 12:00:00 AM EST eCW1 ([facility]) Doxycycline Monohydrate 100 MG Oral Capsule 02/18/2020 12:00:00 AM EST eCW1 ([facility]) Sulfamethoxazole 800 MG / Trimethoprim 160 MG Oral Tab let [Bactrim] 02/12/2020 12:00:00 AM EST eCW1 ([facility]) Trazodone Hydrochloride 50 MG Oral Tablet 01/28/2020 12:00:00 AM ES T eCW1 ([facility]) Trazodone Hydrochloride 50 MG Oral Tablet 01/28/2020 12:00:00 AM ES T eCW1 ([facility]) Trazodone Hydrochloride 50 MG Oral Tablet 01/28/2020 12:00:00 AM ES T eCW1 ([facility]) Trazodone Hydrochloride 50 MG Oral Tablet 01/28/2020 12:00:00 AM ES T eCW1 ([facility]) Trazodone Hydrochloride 50 MG Oral Tablet 01/28/2020 12:00:00 AM ES T eCW1 ([facility]) Trazodone Hydrochloride 50 MG Oral Tablet 01/28/2020 12:00:00 AM ES T eCW1 ([facility]) Trazodone Hydrochloride 50 MG Oral Tablet 01/28/2020 12:00:00 AM ES T eCW1 ([facility]) Simvastatin 40 MG Oral Tablet 01/09/2020 12:00:00 AM EDT [facility] Levofloxacin 500 MG Oral Tablet 01/01/2020 12:00:00 AM EDT eCW1 ([facility]) Levofloxacin 500 MG Oral Tablet 01/01/2020 12:00:00 AM EDT eCW1 ([facility]) Levofloxacin 500 MG Oral Tablet 01/01/2020 12:00:00 AM EDT eCW1 ([facility]) Levofloxacin 500 MG Oral Tablet 01/01/2020 12:00:00 AM EDT eCW1 ([facility]) Lisinopril 40 MG Oral Tablet 08/20/2019 12:00:00 AM EDT [facility] Hydrochlorothiazide 12.5 MG Oral Tablet 08/07/2019 12:00:00 AM EDT [facility]
[2021-02-01 14:42] LABS: ALBUMIN 2.8 GM/DL (3.2-5.2); BILIRUBIN,DIRECT 0.1 MG/DL (0.0-0.2); BILIRUBIN,TOTAL 0.4 MG/DL (0.2-1.0); TOTAL PROTEIN 6.7 GM/DL (6.4-8.2)
[2021-02-01] MEDS ORDERED: ISOVUE-370 76% 100ML VIAL As Ordered ONE (14:59)
--- NOTE | 2021-02-01 15:47 | REP ---
INDICATION: lower abd pain, current divertic, worsening. COMPARISON: 01/23/2021 TECHNIQUE: Axial contrast-enhanced images from the lung bases to the pubic symphysis using 100 cc Isovue 370 intravenous contrast material. Coronal and sagittal reformations obtained.. This CT examination was performed using the following dose reduction techniques: Automated exposure control, adjustment of mA and/or kv according to the patient's size, and the use of iterative reconstruction technique. FINDINGS: Mid sigmoid diverticulitis with mucosal thickening and pericolonic inflammatory stranding is again appreciated and appears slightly increased. There is no obvious bowel obstruction or perforation. No free air. No drainable collection or abscess. Remainder of the small and large bowel is grossly normal/stable. Liver, spleen, pancreas, gallbladder, bilateral adrenal glands and right kidney are normal. Left kidney demonstrates stable cysts. Remainder of the pelvis demonstrates normal bladder and age-appropriate prostate/seminal vesicles. Atherosclerotic changes to the aorta and vasculature again noted without aneurysm or dissection. Surrounding musculoskeletal structures are intact. Lung bases are clear. IMPRESSION: 1. Known mid sigmoid diverticulitis with mildly increased mucosal thickening and mildly increased pericolonic stranding. However, no evidence for obstruction, perforation, ascites, or drainable collection/abscess noted. 2. No new acute process appreciated. <Electronically signed by Champ Moralez > 02/01/21 [id number]
[2021-02-01] MEDS ORDERED: ACETAMINOPHEN TAB 650MG DOSE (2X325MG) PO PRN (16:50)
[2021-02-01] MEDS ORDERED: CIPROFLOXACIN 400 MG in IV 1 EA IV SCH (17:00)
[2021-02-01] MEDS ORDERED: POTASSIUM CHLORIDE 10MEQ SR TABLET PO ONE (17:00)
--- OUTSIDE RECORDS SUMMARY | 2021-02-01 17:10 | CCD ---
Author Author [facility] Organization [facility] Address Unknown Phone Unavailable Care Team Providers Care Economic Consultant Name Role Phone Daniel aL MD Unavailable Unavailable Daniel La MD Unavailable Unavailable Daniel La MD Unavailable Unavailable Daniel La MD Unavailable Unavailable Daniel La MD Unavailable Unavailable Daniel La MD Unavailable Unavailable Abriss B Alec GAY Unavailable Unavailable Abrelio B Alec GAY Unavailable Unavailable Abriss B Alec GAY Unavailable Unavailable Abriss B Alec GAY Unavailable Unavailable Abrelio B Alec GAY Unavailable Unavailable Abreilo B Alec GAY Unavailable Unavailable Abrelio B Alec GAY Unavailable Unavailable Harsha B Alec GAY Unavailable Unavailable Harsha B Alec GAY Unavailable Unavailable Harsha B Alec GAY Unavailable Unavailable Harsha B Alec GAY Unavailable Unavailable Harsha B Alec GAY Unavailable Unavailable Harsha B Alec GAY Unavailable Unavailable Harsha B Alec GYA Unavailable Unavailable Abrelio B Alec GAY Unavailable [...] A ROMA PA Unavailable Unavailable LETTIERE, A ORMA PA Unavailable Unavailable LETTIERE, A ROMA PA [...] MadhiraParamjit MD Unavailable Unavailable Fons, M Osiris OVEREDGER Unavailable Unavailable Fons, M Osiris OVEREDGER Unavailable Unavailable Fons, M Osiris OVEREDGER Unavailable Unavailable Fons, M Osiris OVEREDGER Unavailable Unavailable Fons, M Osiris OVEREDGER Unavailable Unavailable Fons, M Osiris OVEREDGER Unavailable Unavailable Fons, M Osiris OVEREDGER Unavailable Unavailable Fons, M Oisris OVEREDGER Unavailable Unavailable Fons, M Osiris OVEREDGER Unavailable Unavailable Fons, M Osiris OVEREDGER Unavailable Unavailable Fons, M Osiris OVEREDGER Unavailable Unavailable Fons, M Osiris OVEREDGER Unavailable Unavailable Fons, M Osiris OVEREDGER Unavailable Unavailable Fons, M Osiris OVEREDGER Unavailable Unavailable Fons, M Osiris OVEREDGER Unavailable Unavailable Fons, M Osiris OVEREDGER Unavailable Unavailable Fons, M Osiris OVEREDGER Unavailable Unavailable Fons, M Osiris OVEREDGER Unavailable Unavailable Fons, M Osiris OVEREDGER Unavailable Unavailable Fons, M Osiris OVEREDGER Unavailable Unavailable Fons, M Osiris OVEREDGER Unavailable Unavailable Fons, M Osiris OVEREDGER Unavailable Unavailable Fons, M Osiris OVEREDGER Unavailable Unavailable Fons, M Osiris OVEREDGER Unavailable Unavailable Fons, M Osiris OVEREDGER Unavailable Unavailable Fons, M Osiris OVEREDGER Unavailable Unavailable Fons, M Osiris OVEREDGER Unavailable Unavailable Fons, M Osiris OVEREDGER Unavailable Unavailable Fons, M Osiris OVEREDGER Unavailable Unavailable Fons, M Osiris OVEREDGER Unavailable Unavailable Fons, M Osiris OVEREDGER Unavailable Unavailable Fons, M Osiris OVEREDGER Unavailable Unavailable Fons, M Osiris OVEREDGER Unavailable Unavailable Fons, M Osiris OVEREDGER Unavailable Unavailable Fons, M Osiris OVEREDGER Unavailable Unavailable Fons, M Osiris OVEREDGER Unavailable Unavailable Fons, M Osiris OVEREDGER Unavailable Unavailable Fons, M Osiris OVEREDGER Unavailable Unavailable Fons, M Osiris OVEREDGER Unavailable Unavailable Fons, M Osiris OVEREDGER Unavailable Unavailable Fons, M Osiris OVEREDGER Unavailable Unavailable Fons, M Osiris OVEREDGER Unavailable Unavailable Fons, M Osiris OVEREDGER Unavailable Unavailable Fons, M Osiris OVEREDGER Unavailable Unavailable Fons, M Osiris OVEREDGER Unavailable Unavailable Fons, M Osiris OVEREDGER Unavailable Unavailable Fons, M Osiris OVEREDGER Unavailable Unavailable Fons, M Osiris OVEREDGER Unavailable Unavailable Fons, M Osiris OVEREDGER Unavailable Unavailable Fons, M Osiris OVEREDGER Unavailable Unavailable Fons, M Osiris OVEREDGER Unavailable Unavailable Fons, M Osiris OVEREDGER Unavailable Unavailable Fons, M Osiris OVEREDGER Unavailable Unavailable Vinnie Zhang MD Unavailable Unavailable [...] Unavailable Dipika II, Hal PA Unavailable Unavailable Dpiika II, Hal PA Unavailable Unavailable Dipika II, [...] Bryson PH.D., M.D. Unavailable Unavailable Thomas, C Rbyson PH.D., M.D. Unavailable Unavailable Thomas, C Bryson [...] is protected by Article 27-F of the [facility] Public Health law. If you continue you may have access to information: Regarding HIV / AIDS; Provided by facilities licensed or operated by the [facility] Office of Mental Health; or Provided by the [facility] Office for People With Developmental Disabilities. If such information is present, then the following [facility] mandated warning applies: This information has [...] law may result in a fine or nursing home sentence or both. A general authorization for the release of medical or other information is NOT sufficient authorization for further disc losure. Allergies and Adverse Reactions Type Description Substance Reaction Status Data Source(s ) Propensity to adverse reactions LATEX Latex Rash [facility] Propensity to adverse [facility] Family History Family Member Name Family Member Gender Family Member Status Date o f Status Description Data Source(s) Unknown Unknown Problem MEDENT ([facility] Unknown Male Problem MEDENT ([facility]) Unknown Female Unknown Male Encounters Encounter Providers Location Date Indications Data Source(s ) Outpatient Attender: Addis Nicholson MDReferrer: Isai pickett MD 06/16/2021 12:00:00 AM [facility] Outpatient Attender: Isai Blair MD 03/03/2021 12:00: 00 AM [facility] Outpatient Attender: Isai Leal-ONCCACTR 12:00:00 AM EST - 01/29/2021 02:21:06 PM [facility] [place] [address] [facility] [address] 01/27/2021 12:00:00 AM EST eCW1 ([facility]) Outpatient Attender: Isai Leal-ONCCACTR 12:00:00 AM EST - 01/22/2021 02:52:46 PM [facility] [place] [address] [facility] [address] 01/22/2021 12:00:00 AM EST eCW1 ([facility]) Outpatient Attender: Isai Leal-ONCCACTR 12:00:00 AM EDT - 01/16/2021 08:03:47 AM EDT Anaplastic large cell lymphoma, 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, extranodal and solid organ sites [facility] Anaplastic large cell lymphoma, 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, extranodal and solid organ sites Outpatient Attender: Hal Mariscal/Kimberly/Marty/Rein dl 01/08/2021 10:00:00 AM EDT MEDENT ([facility]) Outpatient Attender: Isai Leal-ONCCACTR 12:00:00 AM [facility] Outpatient Attender: Isai Blair MD 01/06/2021 12:00: 00 AM [facility] Outpatient Attender: Isai Leal-ONCCACTR 12:00:00 AM EDT - 01/01/2021 12:02:50 PM EDT [facility] Outpatient Attender: Isai Leal-ONCCACTR 12:00:00 AM EDT - 12/26/2020 08:07:20 AM EDT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, nasal type [facility]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, nasal typ e Outpatient [address] [facility] [address] 12/23/2020 12:00:00 AM EDT eCW1 ([facility]) Outpatient Attender: Isai Leal-ONCCACTR 12:00:00 AM EDT - 12/16/2020 03:39:15 PM T [facility] [place] [address] [facility] [address] 12/12/2020 12:00:00 AM EDT eCW1 ([facility]) Outpatient Attender: Isai Blair MDReferrer: Isai Blair MD 12/11/2020 12:00:00 AM [facility] Outpatient Attender: Isai Blair MD 12/11/2020 12:00: 00 AM [facility] Outpatient Attender: Bryson Guzman PH.D., M.D. Loida/Kimberly/Thanh camacho/Leodan 12/09/2020 11:30:00 AM EDT [facility] ([facility] [place] [address] [facility] [address] 12/08/2020 12:00:00 AM EDT eCW1 ([facility]) Outpatient Attender: Isai Blair MDAdmitter: Junaid Blair MD 07A-ONCCACTR 12/04/2020 12:00:00 AM EDT - 12/04/2020 11:47:27 AM EDT [facility] Unknown [address] [facility] [address] 12/03/2020 12:00:00 AM EDT eCW1 ([facility]) Outpatient Attender: Bryson Guzman PH.D., M.D. Loida/Serafina/A ngel/Reindl 12/02/2020 08:30:00 AM EDT MEDENT ([facility], ) Out[place] [address] [facility] [address] 12/02/2020 12:00:00 AM EDT eCW1 ([facility]) Unknown [address] [facility] [address] 12/01/2020 12:00:00 AM EDT eCW1 ([facility]) Unknown [address] [facility] [address] 11/30/2020 12:00:00 AM EDT eCW1 ([facility]) Outpatient Attender: Bryson Guzman PH.D., MMarielos. Loida/Serafina/A ngel/Reindl 11/19/2020 10:45:00 AM EDT MEDENT ([facility], ) Outpatient Admitter: Daniel La MDReferrer: Daniel La MD 11/11/2020 12:00:00 AM EDT Unspecified B-cell lymphoma, unspecified site [facility] Unspecified B-cell lymphoma, unspecified site Outpatient Attender: Alec Mariscal/Serafina/Marty/Re indl 10/09/2020 10:30:00 AM EDT MEDENT ([facility], ) Outpatient Attender: Alec Mariscal/Serafina/Marty/Re indl 09/22/2020 01:30:00 PM EDT MED[facility] ([facility] Outpatient Attender: Osiris Barclay FNPReferrer: Osiris PRECIADO SJP .EUGENE-SJP.EUGENE 09/12/2020 02:15:18 PM EDT - 09/12/2020 03:16:06 PM EDT [facility] Outpatient Attender: Osiris Barclay FNPReferrer: Osiris PRECIADO SJP .EUGENE-SJP.EUGENE 09/12/2020 12:00:00 AM EDT - 09/12/2020 03:29:17 PM EDT [facility] Outpatient Attender: Walt Mariscal/Serafina/Marty/R eindl 09/09/2020 10:30:00 AM EDT [facility] ([facility] [place] [address] [facility] [address] 09/05/2020 12:00:00 AM EDT eCW1 ([facility]) Outpatient Attender: Osiris CURIELP.EUGENE-SJP.EUGENE 10:22:45 AM EDT - 07/18/2020 11:47:[address] [facility] Office Visit Attender: Alec Mariscal/Serafina/Marty/Re indl 07/04/2020 11:15:00 AM EDT MEDENT ([facility] Outpatient Attender: Walt Mariscal/Serafina/Marty/R eindl 06/26/2020 11:15:00 AM EDT MEDENT ([facility] Office Visit Attender: Alec Mariscal/Serafina/Marty/Re indl 06/19/2020 09:00:00 AM EDT MED[facility] ([facility] Office Visit Attender: Alec Mariscal/Serafina/Marty/Re indl 06/11/2020 10:30:00 AM EDT MED[facility] ([facility] Unknown [address] [facility], [place] [address] 06/05/2020 12:00:00 AM EDT eCW1 ([facility]) Office Visit, Est Pt., Level 5 PC [address] [place] [address] 06/05/2020 12:00:00 AM EDT eCW1 ([facility]) Outpatient Attender: Alec Mariscal/Kimberly/Marty/Re indl 05/20/2020 09:45:00 AM EST MEDENT ([facility] Outpatient Attender: Alec Mariscal/Kimberly/Marty/Re indl 05/07/2020 09:15:00 AM EST MED[facility] ([facility] Outpatient Attender: Alec Mariscal/Kimberly/Marty/Re indl 04/01/2020 08:30:00 AM EST [facility] ([facility] Unknown [address] [facility] [address] 04/01/2020 12:00:00 AM EST eCW1 ([facility]) Unknown [address] [facility] [address] 03/11/2020 12:00:00 AM EST eCW1 ([facility]) Unknown [address] [facility] [address] 03/10/2020 12:00:00 AM EST eCW1 ([facility]) Outpatient Attender: ROMA ovalle 03/04/2020 04:00:00 PM EST [facility] ([facility] [place]patient [address] [facility] [place] [address] 02/27/2020 12:00:00 AM EST eCW1 ([facility]) Outpatient Attender: aWlt Mariscal/Kimberly/Marty/R eindl 02/18/2020 08:45:00 AM EST [facility] ([facility] [place] [address] [facility] [address] 02/18/2020 12:00:00 AM EST eCW1 ([facility]) Unknown [address] [facility] [address] 02/13/2020 12:00:00 AM EST eCW1 ([facility]) Outpatient [address] [facility] [address] 02/12/2020 12:00:00 AM EST eCW1 ([facility]) Unknown [address] [facility] [address] 01/28/2020 12:00:00 AM EST eCW1 ([facility]) Unknown [address] [facility] [address] 01/28/2020 12:00:00 AM EST eCW1 ([facility]) Outpatient Attender: Osiris HUNTER-DALE 0 12:00:00 AM EST - 01/15/2020 09:59:[address] [facility] Office Visit, Est Pt., Level 3 PC [address] [place] [address] 01/01/2020 12:00:00 AM EDT eCW1 ([facility]) Unknown [address] [facility] [address] 12/31/2019 12:00:00 AM EDT eCW1 ([facility]) Outpatient Attender: Walt Mariscal/Kimberly/Marty/Beverly cristina 12/27/2019 11:15:00 AM EDT MEDENT ([facility], ) Immunizations Vaccine Date Status Description Data Source(s) influenza, recombinant, quadrIvalent,injectable, prese rvative free 12/23/2020 12:16:00 PM EDT completed eCW1 ([facility]) influenza, recombinant, quadrIvalent,injectable, prese rvative free 12/23/2020 12:16:00 PM EDT completed eCW1 ([facility]) influenza, recombinant, quadrIvalent,injectable, prese rvative free 12/23/2020 12:16:00 PM EDT completed eCW1 ([facility]) influenza, recombinant, quadrIvalent,injectable, prese rvative free 12/23/2020 12:16:00 PM EDT completed [facility] ([facility]) COVID-19 VACCINE Julio 07/25/2020 12:00:00 AM EDT completed [facility] Vaccine Series Complete: YESThis Data wa s Submitted to [facility] Via [employer]. Medications Medication Brand Name Start Date Product [...] AM EDT active Voriconazole 200 MG eCW1 ([facility]) voriconazole 200 MG Oral Tablet Voriconazole 200 MG Voricona zole 200 MG 12/02/2020 12:00:00 AM EDT active Voriconazole 200 MG eCW1 ([facility]) voriconazole 200 MG Oral Tablet Voriconazole 200 MG Voricona zole 200 MG 12/02/2020 12:00:00 AM EDT active Voriconazole 200 MG eCW1 ([facility]) 10 mg 10/10/2020 12:00:00 AM EDT [...] 10/10/2020 12:00:00 AM EDT ORAL completed MEDENT ([facility], ) 250 mg 10/09/2020 12:00:00 AM EDT tablet 14 TAKE ONE TABLET BY MOUTH EVERY DAY FOR 14D AYS TAKE ONE TABLET BY MOUTH EVERY DAY FOR 14D AYS SOLD: [facility] Levofloxacin 250 MG Oral Tablet Levofloxacin 10/09/2020 12:00:00 AM E DT ORAL completed MEDENT ([facility], ) 250 mg 10/09/2020 12:00:00 [...] 12:00: 00 AM EDT ORAL completed MEDENT ([facility], ) Mupirocin 20 MG/ML Topical Cream Mupirocin Calcium 09/22/2020 12:00 :00 AM EDT completed MEDENT ([facility], ) 25 mg 09/17/2020 12:00:00 AM EDT [...] tablet (12.5 mg total) by mouth daily [facility] Hypertension, essential Simvastatin 40 MG Oral Tablet simvastatin (ZOCOR) 40 M G tablet simvastatin (ZOCOR) 40 MG tablet 09/04/2020 12:00:00 AM EDT active TAKE ONE TABLET BY MOUTH NIGHTLY [facility] Cefuroxime 500 MG Oral Tablet Cefuroxime Axetil 08/21/2020 12:00:00 A M EDT ORAL completed MEDENT ([facility], ) Prednisone 10 MG Oral Tablet Prednisone 08/21/2020 12:00:00 AM EDT ORAL completed MEDENT ([facility], ) 10 mg 08/21/2020 12:00:00 AM [...] CPAP 07/18/2020 12:00:00 AM EDT active MEDENT ([facility], ) Lisinopril 40 MG Oral Tablet lisinopril (PRINIVIL,ZEST RIL) 40 MG tablet lisinopril (PRINIVIL,ZESTRIL) 40 MG tablet 06/18/2020 12:00:00 AM EDT active Hypertension, essential TAKE ONE TABLET BY MOUTH DAILY [facility] Hypertension, essential 20 mg 05/20/2020 12:00:00 AM EST tablet 14 TAKE ONE TABLET BY MOUTH TWICE A DAY FOR 7 DAYS PRIOR TO SURGERY TAKE ONE TABLET BY MOUTH TWICE A DAY FOR 7 DAYS PRIOR TO SURGERY SOLD: 05/28/2020 [facility] Prednisone 20 MG Oral Tablet Prednisone 05/20/2020 12:00:00 AM EST ORAL completed MEDENT ([facility], ) 875-125 mg 05/20/2020 12:00:00 AM [...] 04/01/2020 12:00:00 AM EST ORAL completed MEDENT ([facility], ) Amoxicillin 500 MG / Clavulanate 125 MG Oral Tablet [Augment in] Augmentin 03/16/2020 12:00:00 AM EST ORAL completed MEDENT ([facility], ) 500-125 mg 03/16/2020 12:00:00 AM EST tablet 20 TAKE ONE TABLET BY MOUTH TWICE A DAY FOR 10 DAYS TAKE ONE TABLET BY MOUTH TWICE A DAY FOR 10 DAYS SOLD: 03/17/2020 [facility] Aspir-Low 81 MG UNK 03/11/2020 12:00:00 AM EST 1.0 {tablet} active Aspir-Low 81 MG eCW1 ([facility]) 10 mg 03/11/2020 12:00:00 AM EST [...] FOR 4 DAYS THEN STOP SOLD: 03/11/2020 [facility] Prednisone 10 MG Oral Tablet Prednisone 03/11/2020 12:00:00 AM EST ORAL completed MEDENT ([facility], ) Aspir-Low 81 MG UNK 03/11/2020 12:00:00 AM EST 1.0 {tablet} active Aspir-Low 81 MG eCW1 ([facility]) Aspir-Low 81 MG UNK 03/11/2020 12:00:00 AM EST 1.0 {tablet} active Aspir-Low 81 MG eCW1 ([facility]) Aspir-Low 81 MG UNK 03/11/2020 12:00:00 AM EST 1.0 {tablet} active Aspir-Low 81 MG eCW1 ([facility]) Prednisone 20 MG Oral Tablet Prednisone 03/04/2020 12:00:00 AM EST active MEDENT ([facility]) 20 mg 03/04/2020 12:00:00 AM EST tablet 10 TAKE ONE TABLET BY MOUTH TWICE A DAY FOR 5 DAYS TAKE ONE TABLET BY MOUTH TWICE A DAY FOR 5 DAYS SOLD: 2019 [facility] Doxycycline Monohydrate 100 MG Oral Capsule Doxycycline [place] hydrate 100 MG 02/18/2020 12:00:00 AM EST 1.0 {capsule} active Doxycycline Monohydrate 100 MG eCW1 ([facility]) Doxycycline Monohydrate 100 MG Oral Capsule Doxycycline [place] hydrate 100 MG 02/18/2020 12:00:00 AM EST 1.0 {capsule} suspend ed Doxycycline Monohydrate 100 MG eCW1 ([facility]) Doxycycline Monohydrate 100 MG Oral Capsule Doxycycline [place] hydrate 100 MG 02/18/2020 12:00:00 AM EST 1.0 {capsule} active Doxycycline Monohydrate 100 MG eCW1 ([facility]) Doxycycline Monohydrate 100 MG Oral Capsule Doxycycline [place] hydrate 100 MG 02/18/2020 12:00:00 AM EST 1.0 {capsule} suspend ed Doxycycline Monohydrate 100 MG eCW1 ([facility]) Doxycycline Monohydrate 100 MG Oral Capsule Doxycycline [place] hydrate 100 MG 02/18/2020 12:00:00 AM EST 1.0 {capsule} active Doxycycline Monohydrate 100 MG eCW1 ([facility]) Doxycycline Monohydrate 100 MG Oral Capsule Doxycycline [place] hydrate 100 MG 02/18/2020 12:00:00 AM EST 1.0 {capsule} active Doxycycline Monohydrate 100 MG eCW1 ([facility]) Doxycycline Monohydrate 100 MG Oral Capsule Doxycycline [place] hydrate 100 MG 02/18/2020 12:00:00 AM EST 1.0 {capsule} active Doxycycline Monohydrate 100 MG eCW1 ([facility]) Doxycycline Monohydrate 100 MG Oral Capsule Doxycycline [place] hydrate 100 MG 02/18/2020 12:00:00 AM EST 1.0 {capsule} active Doxycycline Monohydrate 100 MG eCW1 ([facility]) 100 mg 02/18/2020 12:00:00 AM EST capsule 20 TAKE ONE CAPSULE BY MOUTH TWICE A DAY FOR 10 DAYS TAKE ONE CAPSULE BY MOUTH TWICE A DAY FOR 10 DAYS SOLD : 02/23/2020 [facility] Doxycycline Monohydrate 100 MG Oral Capsule Doxycycline [place] hydrate 100 MG 02/18/2020 12:00:00 AM EST 1.0 {capsule} active Doxycycline Monohydrate 100 MG eCW1 ([facility]) Doxycycline Monohydrate 100 MG Oral Capsule Doxycycline [place] hydrate 100 MG 02/18/2020 12:00:00 AM EST 1.0 {capsule} active Doxycycline Monohydrate 100 MG eCW1 ([facility]) Doxycycline Monohydrate 100 MG Oral Capsule Doxycycline [place] hydrate 100 MG 02/18/2020 12:00:00 AM EST 1.0 {capsule} active Doxycycline Monohydrate 100 MG eCW1 ([facility]) Doxycycline Monohydrate 100 MG Oral Capsule Doxycycline [place] hydrate 100 MG 02/18/2020 12:00:00 AM EST 1.0 {capsule} active Doxycycline Monohydrate 100 MG eCW1 ([facility]) Doxycycline Monohydrate 100 MG Oral Capsule Doxycycline [place] hydrate 100 MG 02/18/2020 12:00:00 AM EST 1.0 {capsule} active Doxycycline Monohydrate 100 MG eCW1 ([facility]) Doxycycline Monohydrate 100 MG Oral Capsule Doxycycline [place] hydrate 100 MG 02/18/2020 12:00:00 AM EST 1.0 {capsule} suspend ed Doxycycline Monohydrate 100 MG eCW1 ([facility]) Sulfamethoxazole 800 MG / Trimethoprim 160 [...] active Bactrim DS 800-160 MG eCW1 ( [facility]) Trazodone Hydrochloride 50 MG Oral Tablet traZODone HC l 50 MG traZODone HCl 50 MG 01/28/2020 12:00:00 AM EST 1.0 {tablet_at_bedtime_as_needed} active traZODone HCl 50 MG eCW1 ([facility]) Trazodone Hydrochloride 50 MG Oral Tablet traZODone HC l 50 MG traZODone HCl 50 MG 01/28/2020 12:00:00 AM EST 1.0 {tablet_at_bedtime_as_needed} active traZODone HCl 50 MG eCW1 ([facility]) Trazodone Hydrochloride 50 MG Oral Tablet traZODone HC l 50 MG traZODone HCl 50 MG 01/28/2020 12:00:00 AM EST 1.0 {tablet_at_bedtime_as_needed} active traZODone HCl 50 MG eCW1 ([facility]) Trazodone Hydrochloride 50 MG Oral Tablet TraZODone HC l 50 MG TraZODone HCl 50 MG 01/28/2020 12:00:00 AM EST 1.0 {tablet_at_bedtime_as_needed} active TraZODone HCl 50 MG eCW1 ([facility]) Trazodone Hydrochloride 50 MG Oral Tablet traZODone HC l 50 MG traZODone HCl 50 MG 01/28/2020 12:00:00 AM EST 1.0 {tablet_at_bedtime_as_needed} active traZODone HCl 50 MG eCW1 ([facility]) Trazodone Hydrochloride 50 MG Oral Tablet TraZODone HC l 50 MG TraZODone HCl 50 MG 01/28/2020 12:00:00 AM EST 1.0 {tablet_at_bedtime_as_needed} active TraZODone HCl 50 MG eCW1 ([facility]) Trazodone Hydrochloride 50 MG Oral Tablet traZODone HC l 50 MG traZODone HCl 50 MG 01/28/2020 12:00:00 AM EST 1.0 {tablet_at_bedtime_as_needed} active traZODone HCl 50 MG eCW1 ([facility]) Trazodone Hydrochloride 50 MG Oral Tablet TraZODone HC l 50 MG TraZODone HCl 50 MG 01/28/2020 12:00:00 AM EST 1.0 {tablet_at_bedtime_as_needed} active TraZODone HCl 50 MG eCW1 ([facility]) Trazodone Hydrochloride 50 MG Oral Tablet TraZODone HC l 50 MG TraZODone HCl 50 MG 01/28/2020 12:00:00 AM EST 1.0 {tablet_at_bedtime_as_needed} active TraZODone HCl 50 MG eCW1 ([facility]) Trazodone Hydrochloride 50 MG Oral Tablet traZODone HC l 50 MG traZODone HCl 50 MG 01/28/2020 12:00:00 AM EST 1.0 {tablet_at_bedtime_as_needed} active traZODone HCl 50 MG eCW1 ([facility]) Trazodone Hydrochloride 50 MG Oral Tablet TraZODone HC l 50 MG TraZODone HCl 50 MG 01/28/2020 12:00:00 AM EST 1.0 {tablet_at_bedtime_as_needed} active TraZODone HCl 50 MG eCW1 ([facility]) Trazodone Hydrochloride 50 MG Oral Tablet traZODone HC l 50 MG traZODone HCl 50 MG 01/28/2020 12:00:00 AM EST 1.0 {tablet_at_bedtime_as_needed} active traZODone HCl 50 MG eCW1 ([facility]) Trazodone Hydrochloride 50 MG Oral Tablet TraZODone HC l 50 MG TraZODone HCl 50 MG 01/28/2020 12:00:00 AM EST 1.0 {tablet_at_bedtime_as_needed} active TraZODone HCl 50 MG eCW1 ([facility]) Trazodone Hydrochloride 50 MG Oral Tablet TraZODone HC l 50 MG TraZODone HCl 50 MG 01/28/2020 12:00:00 AM EST 1.0 {tablet_at_bedtime_as_needed} active TraZODone HCl 50 MG eCW1 ([facility]) Trazodone Hydrochloride 50 MG Oral Tablet TraZODone HC l 50 MG TraZODone HCl 50 MG 01/28/2020 12:00:00 AM EST 1.0 {tablet_at_bedtime_as_needed} active TraZODone HCl 50 MG eCW1 ([facility]) Trazodone Hydrochloride 50 MG Oral Tablet traZODone HC l 50 MG traZODone HCl 50 MG 01/28/2020 12:00:00 AM EST 1.0 {tablet_at_bedtime_as_needed} active traZODone HCl 50 MG eCW1 ([facility]) Trazodone Hydrochloride 50 MG Oral Tablet traZODone HC l 50 MG traZODone HCl 50 MG 01/28/2020 12:00:00 AM EST 1.0 {tablet_at_bedtime_as_needed} active traZODone HCl 50 MG eCW1 ([facility]) Trazodone Hydrochloride 50 MG Oral Tablet TraZODone HC l 50 MG TraZODone HCl 50 MG 01/28/2020 12:00:00 AM EST 1.0 {tablet_at_bedtime_as_needed} active TraZODone HCl 50 MG eCW1 ([facility]) Trazodone Hydrochloride 50 MG Oral Tablet TraZODone HC l 50 MG TraZODone HCl 50 MG 01/28/2020 12:00:00 AM EST 1.0 {tablet_at_bedtime_as_needed} active TraZODone HCl 50 MG eCW1 ([facility]) Trazodone Hydrochloride 50 MG Oral Tablet TraZODone HC l 50 MG TraZODone HCl 50 MG 01/28/2020 12:00:00 AM EST 1.0 {tablet_at_bedtime_as_needed} active TraZODone HCl 50 MG eCW1 ([facility]) Trazodone Hydrochloride 50 MG Oral Tablet traZODone HC l 50 MG traZODone HCl 50 MG 01/28/2020 12:00:00 AM EST 1.0 {tablet_at_bedtime_as_needed} active traZODone HCl 50 MG eCW1 ([facility]) Simvastatin 40 MG Oral Tablet simvastatin (ZOCOR) 40 M G tablet simvastatin (ZOCOR) 40 MG tablet 01/09/2020 12:00:00 AM EDT 40 mg Oral aborted Take 1 tablet (40 mg total) by mouth nightly [facility] Levofloxacin 500 MG Oral Tablet Levofloxacin 500 MG 01/01/2020 1 2:00:00 AM EDT 1.0 {tablet} active Levofloxaci n 500 MG eCW1 ([facility]) Levofloxacin 500 MG Oral Tablet Levofloxacin 500 MG 01/01/2020 1 2:00:00 AM EDT 1.0 {tablet} active Levofloxaci n 500 MG eCW1 ([facility]) 500 mg 01/01/2020 12:00:00 AM EDT tablet 10 TAKE ONE TABLET BY MOUTH EVERY DAY FOR 10 DAYS TAKE ONE TABLET BY MOUTH EVERY DAY FOR 10 DAYS SOLD: 020 [facility] Levofloxacin 500 MG Oral Tablet Levofloxacin 500 MG 01/01/2020 1 2:00:00 AM EDT 1.0 {tablet} active Levofloxaci n 500 MG eCW1 ([facility]) Levofloxacin 500 MG Oral Tablet Levofloxacin 500 MG 01/01/2020 1 2:00:00 AM EDT 1.0 {tablet} suspended Levofloxa analia 500 MG eCW1 ([facility]) Levofloxacin 500 MG Oral Tablet Levofloxacin 500 MG 01/01/2020 1 2:00:00 AM EDT 1.0 {tablet} active Levofloxaci n 500 MG eCW1 ([facility]) Cefuroxime 500 MG Oral Tablet Cefuroxime Axetil 12/27/2019 12:00:00 A M EDT ORAL completed [facility] ([facility], ) 500 mg 12/27/2019 12:00:00 [...] tablet (40 mg total) by mouth daily [facility] Hypertension, essential Hydrochlorothiazide 12.5 MG Oral Tablet hydrochlorothiazide (HYDRODIURIL) 12.5 MG tablet hydrochlorothiazide (HYDRODIURIL) 12.5 MG tablet 08/06 12:00:00 AM EDT 12.5 mg Oral aborted Hypertension, essential Take 1 tablet (12.5 mg total) by mouth daily [facility] Hypertension, essential doxycycline hyclate 100 MG [...] to walsh Policy Walsh Plan Information [employer] [id number] SP [id number] [employer] PPO 2 [id number] 1 [id number] Tpa/[place] Eff () Workers Compensation [id number] Self [id number] [employer] () Workers Compensation [id number] Self UMR U [id number] Self [id number] UMR [id number] [id number] MEDICARE [id number] xxxxxxxxxxx [id number] UMR [id number] Fabi [id number] MEDICARE [id number] Fabi [id number] Q10 MEDICARE A [id number] Self [id number] Q10 [employer] (pr) Commercial [id number] Self [employer] PPO O [id number] S [id number] [employer] Commercial [id number] Self [employer] C1 [id number] SELF PAY 2 UNAVAILABLE 1 UNAVAILA BLE Umr Commercial [id number] Self [id number] MEDICARE [id number] SP [id number] [id number] SELF PAY ONLY [id number] SP [id number] UMR O [id number] S [id number] MEDICARE C [id number] S [id number] Q10 Umr/Uhc/[employer] Medigap Part B [id number] Self [id number] Medicare Natl Gov't Servi Medicare Primary [id number] Self [id number] [employer] Medigap Part B [id number] Self [id number] R [facility] [id number] SP [id number] [place] Medicare Primary [id number] Self [id number] [facility] [id number] [facility] Commercial [id number] Self Problems, Conditions, and Diagnoses Code Display Name Description Problem Type Effective Dates Data Source(s) 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, nasal typ e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, nasal type Diagnosis 01/15/2021 12:00:00 AM EDT [facility] 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, 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, 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, 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, extranodal and solid organ sites Diagnosis 01/01/2021 11:54:06 AM EDT [facility] 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, unspecified site Unspecified B-cell lymphoma, unspecified site Diagnosis 11/11/2020 12:00:00 PM EDT [facility] I10 Essential (primary) hypertension Essential (primary) h ypertension Diagnosis 09/12/2020 02:21:30 PM EDT [facility] R60.9 Edema, unspecified Edema, unspecified Diagnosis 04/2020 02:21:30 PM EDT [facility] R06.00 Dyspnea, unspecified Dyspnea, unspecified Diagnosis 09/12/2020 02:21:30 PM EDT [facility] I25.10 Atherosclerotic heart diseas e of [place] coronary artery without angina pectoris Atherosclerotic heart disease of [place] Diagnosis 09/12/2020 02:21:30 PM EDT [facility] 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, unspecif ied Rheumatic mitral valve disease, unspecif Diagnosis 09/12/2020 02:15:18 PM EDT [facility] E78.2 Mixed hyperlipidemia Mixed hyperlipidemia Diagnosis 07/18/2020 10:22:45 AM EDT [facility] Z95.5 Presence of coronary angioplasty implant and graft Presence of coronary angioplasty implant Diagnosis 07/18/2020 10:22:45 AM EDT [facility] R60.0 Localized edema Localized edema Diagnosis 07/18/2020 10:2 2:45 AM EDT [facility] Z23 [id number] Encounter for immunization Problem 12:00:00 AM EDT eCW1 ([facility]) G47.33 [id number] Obstructive sleep apnea Problem 12/02/2020 1 2:00:00 AM EDT eCW1 ([facility]) I25.10 [id number] Coronary artery dise ase involving [place] coronary artery of [place] heart without angina pectoris Problem 12/02/2020 12:00:00 AM EDT eCW1 ([facility]) 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 12:00:00 AM EDT eCW1 ([facility]) B44.9 [id number] Aspergillosis Problem 12/02/2020 12:00:00 AM EDT eCW1 ([facility]) J32.0 [id number] Chronic maxillary sinusitis Problem 12/03/19 12:00:00 AM EDT eCW1 ([facility]) C85.91 [id number] Lymphoma of lymph nodes of head, unspecified lymphoma type Problem 12/02/2020 12:00:00 AM EDT eCW1 ([facility]) 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 Chronic fronto ethmoidal sinusitis Problem 11/19/2020 12:00:00 AM EDT [facility] ([facility]) Z95.1 Hx of CABG Hx of CABG [id number] 07/18/2020 12:00:00 AM ED T [facility] J47.9 [id number] Recurrent bronchiectasis Problem 06/05/2020 12:00:00 AM EDT eCW1 ([facility]) R73.01 [id number] IFG (impaired fasting glucose) Problem 06/05/2020 12:00:00 AM EDT eCW1 ([facility]) G47.33 [id number] BALAJI (obstructive sleep apnea) Problem 06/05/2020 12:00:00 AM EDT eCW1 ([facility]) J32.9 [id number] Chronic sinusitis, unspecified Problem 03/10/2020 12:00:00 AM EST eCW1 ([facility]) R79.89 [id number] Elevated LFTs Problem 02/27/2020 12:00:00 AM EST eCW1 ([facility]) Z12.11 [id number] Colon cancer screening Problem 02/19/2020 12 :00:00 AM EST eCW1 ([facility]) J32.1 [id number] Chronic frontal sinusitis Problem 02/12/2020 12:00:00 AM EST eCW1 ([facility]) J32.9 Chronic sinusitis Rhinosinusitis Problem 01/01/2020 12: 00:00 AM EDT eCW1 ([facility]) Surgeries/Procedures Procedure Description Date Indications Data Source(s) OFFICE OUTPATIENT VISIT 15 MINUTES 01/08/2021 12:00:00 AM [facility] Imm: Flublok Quadrivalent 18 years & older 0.5mL IM Influenz a 12/23/2020 12:00:00 AM EDT eCW1 ([facility]) Endoscopy Nasal/Sinus Surgical W/BX/Polypectomy/Debridement 12/09/2020 12:00:00 AM EDT [facility] ([facility], ) OFFICE OUTPATIENT VISIT 15 MINUTES 12/09/2020 12:00:00 AM EDT [facility] ([facility], ) Endoscopy Nasal/Sinus Surgical W/BX/Polypectomy/Debridement 12/02/2020 12:00:00 AM EDT [facility] ([facility], ) OFFICE OUTPATIENT VISIT 15 MINUTES 12/02/2020 12:00:00 AM EDT [facility] ([facility], ) Endoscopy Nasal/Sinus Surgical W/BX/Polypectomy/Debridement 11/19/2020 12:00:00 AM EDT [facility] ([facility]) OFFICE OUTPATIENT VISIT 25 MINUTES 11/19/2020 12:00:00 AM EDT [facility] ([facility]) Endoscopy Nasal Diagnostic 11/11/2020 12:00:00 AM EDT [facility] ([facility]) Endoscopy Nasal Diagnostic 10/27/2020 12:00:00 AM EDT [facility] ([facility]) Spirometry 10/10/2020 12:00:00 AM EDT M EDENT ([facility]) Plethysmography Determination Lung Volumes & Per Airway Resi st 10/10/2020 12:00:00 AM EDT [facility] ([facility]) DIFFUSING CAPACITY 10/10/2020 12:00:00 AM EDT [facility] ([facility]) OFFICE OUTPATIENT VISIT 15 MINUTES 10/09/2020 12:00:00 AM EDT [facility] ([facility]) Endoscopy Nasal Diagnostic 09/22/2020 12:00:00 AM EDT [facility] ([facility]) OFFICE OUTPATIENT VISIT 25 MINUTES 09/22/2020 12:00:00 AM EDT [facility] ([facility]) Spirometry 09/09/2020 12:00:00 AM EDT M EDENT ([facility]) OFFICE OUTPATIENT VISIT 25 MINUTES 09/09/2020 12:00:00 AM EDT [facility] ([facility]) OFFICE OUTPATIENT VISIT 15 MINUTES 06/26/2020 12:00:00 AM EDT [facility] ([facility]) Septoplasty/Submucous Resection Contour Or Replacement W/Gra ft 06/09/2020 12:00:00 AM EDT [facility] ([facility]) Endoscopy Nasal/Sinus Surgical W/ Ethmoidectomy Total 06/09/2020 12:00:00 AM EDT [facility] ([facility]) Endoscopy Nasal/Sinus Surgical Remove Tissue From Maxillary Sinus 06/09/2020 12:00:00 AM EDT [facility] ([facility]) OFFICE OUTPATIENT VISIT 15 MINUTES 05/20/2020 12:00:00 AM EST [facility] ([facility], ) BIOPSY INTRANASAL 05/12/2020 12:00:00 AM EST [facility] ([facility]) OFFICE OUTPATIENT VISIT 25 MINUTES 05/07/2020 12:00:00 AM EST [facility] ([facility]) Endoscopy Nasal Diagnostic 04/01/2020 12:00:00 AM EST [facility] ([facility]) OFFICE OUTPATIENT NEW 45 MINUTES 04/01/2020 12:00:00 A M EST [facility] Results ID Date Data Source [id number] 01/29/2021 08:49:18 PM EST [facility] Name Value Range Interpretation Code Description Data Kayley rce(s) Supporting Document(s) Progress Note [facility] VUFWCy3xVrSVDhIk58/MVTgvCWOlr3EmMPzxYYw6NCguKAFhS7JlGJF5yV7sSFT6HLrMCpBqTjFiUOK5 lbm [file] ICAgICAgICAgICAgICAgICAgICAgICAgICAgICAgICAgICAgICAgICAgICAgICAgICAgICAgDQogICAg ICAgICAgICAgICAgICAgICAgICAgICAgICAgICAgIC AgICAgICAgICAgICAgICAgICAgICAgICAgICAgICAgICAgICAgICAgICAgICAgICAgICAgICAgICAgIC AgICAgDQogICAgICAgICAgICAgICAgICAgICAgICAgICAgICAgICAgICAgICAgICAgICAgICAgICAgIC AgICAgICAgICAgICAgICAgICAgICAgICAgICAgICAg ICAgICAgICAgICAgICAgDQogICAgICAgICAgICAgICAgICAgICAgICAgICAgICAgICAgICAgICAgICAg ICAgICAgICAgICAgICAgICAgICAgICAgICAgICAgICAgICAgICAgICAgICAgICAgICAgICAgICAgDQog ICAgICAgICAgICAgICAgICAgICAgICAgICAgICAgIC AgICAgICAgICAgICAgICAgICAgICAgICAgICAgICAgICAgICAgICAgICAgICAgICAgICAgICAgICAgIC AgICAgICAgDQogICAgICAgICAgICAgICAgICAgICAgICAgICAgICAgICAgICAgICAgICAgICAgICAgIC AgICAgICAgICAgICAgICAgICAgICAgICAgICAgICAg ICAgICAgICAgICAgICAgICAgDQogICAgICAgICAgICAgICAgICAgICAgICAgICAgICAgICAgICAgICAg ICAgICAgICAgICAgICAgICAgICAgICAgICAgICAgICAgICAgICAgICAgICAgICAgICAgICAgICAgICAg DQogICAgICAgICAgICAgICAgICAgICAgICAgICAgIC AgICAgICAgICAgICAgICAgICAgICAgICAgICAgICAgICAgICAgICAgICAgICAgICAgICAgICAgICAgIC AgICAgICAgICAgDQogICAgICAgICAgICAgICAgICAgICAgICAgICAgICAgICAgICAgICAgICAgICAgIC AgICAgICAgICAgICAgICAgICAgICAgICAgICAgICAg ICAgICAgICAgICAgICAgICAgICAgDQogICAgICAgICAgICAgICAgICAgICAgICAgICAgICAgICAgICAg ICAgICAgICAgICAgICAgICAgICAgICAgICAgICAgICAgICAgICAgICAgICAgICAgICAgICAgICAgICAg RHFsPTk4S7hwLQHsKQKuJN6aSQp5Bs8+DQoNCmVuZH N5jbOkzO1WAG9pj3NvSHyzLXOba9TwSJa2UL9BUSAcADfnKZ6UJSxvfb7WMNEyLXJfyWBAb5nwKoTuZF V8EUMnZepoJY7CDASzB4lxyxRqRWEfIHQQQDmoHUKKQBoxGKXPKGKqKUNrHpGeRfAfRWSxBBVlPXWOWT 7IVsZxL5DsjE64IGYQSs6+DQplbmRvYmoNCjMyIDAg v2AyNBd7GN4STYGqPlekg5XwXtGrJBWKBIueSE0DQYU1XJMuWUXpEa9QOJZpX308diZcGW7TUd8IYfHl RZ2gvj0IMrMyVDSuCeoCOlk2XZleZH5JxSXjDBfApc3rcfUutaUWq3RpoaMncGWPfWPci4VbRPPPZMVb jSJeFSUGHXLiqWZzGD2yRI2gQRMtYQLyVwIpEONDXF 9YLGNvYQJyjPBqCWDyAVKGUO5ISKoeNXL3OORiboXczGIjDYmaCM7TZCOfiiPbCxNoQDJXDJq+Pg0KZW 0gf7UxYWrgYIIvMS7jrw7GNCfBTcTdX2N7jYYbK0P4EAfzWi6NTNThTUUeVfNwLIXWWYbtZZ4QUN6fue V8RE3QlIYiQBEjREXiqZNcXWt3C64ozATjGQfwDU4L ICA+Pallavi+Bq2YLSRuQAJkUBFoAtZpJWHHPjRjH2ZsI8YUe2IxB5XrEB65aMzexeMbJHueND5APU0dKHZr MCGZIE5BdUGoxT9lbpMsTrElILVJDoSzR03xaEYgQFGbZCNeJHIcMh8DTPMlJ9LruwThkCjhkaRsWICm OMRFAY6OWXdjndKncNDdqLlpHJ27fZkpEV1XWw0OOs OqZS6hth7ExVPiMm6NWXAiTQ4DUUTuEJCgAHYaWSS5QWDnHqMoRNesLHFgIVZtHRD6ANAfNSHhXY6HZt BdOMBvXKm6BoUhNKDmRVXkev5TUGVeRAT7NUB8JTSxIJYsQKDaLCffIPFvMUEcMMH4JYAmUMAxOB5QIv AkPNFkBUJ7LfClSCNtQGZopi5KFBYrQWLvFdn2NiZi ARSsCZJyZHwcAILzLNP7STX8CUIhDOHpDH1MYpIfCAWcKQi8LDSvASOpPFIcws7SWMOpJCSiHPa9HgMn IQCdPCHqXRukVNTcDBMpQGn0DKVtIOJmZA2MIwCaSLNhVMW8OzKtTHJjSYJpbk6UTFXmDZJzLSVnNXOv SDHvVLTdLQziRLDmYOO9ZqJ4QSLzEFOuFY4EUaRoVB UbLNq3AIJmMEIyOSXdeu3JJTYwLYWdUDYcRITdFLMjVWJtZJwmUQHyMHPmRaOqDVAkIRCxZX7GKcLcTS FpWyC0AaEkYIVvXAJbvv4IUIWuTCQfCUi7JiSkQCRhDDBqHKceCVQoIEIsXQQpCMDyYGMrHK7UEyTuAN HgQeE0ZXxzWBZrGSWinn3XBUMbFHWnAkXfFTFyZMMy NDZvAGlzWQYrCZOdWvm5EBXxCIJfZS5VIkBqQPFyNYV7MfClOBZcPQLbmj0YUKOoYMY7PwH5MHUzDDUw ATCbAUecLKFaZOX6Rkj4SASaLUVgAE3TCqGlGHVqCIsdCCKlDBClDVKisr8FRARcFGA6TgH6ZXKlQYCw QRKbYUbaTBSgVYE2MwKuLKJlAEVsGM4XWiSyEDAqJK l6JgRfAHRtZMYpgm4HJPCaBAO2MMkpSKFlASMtWJGmDKrrKVZuEEW3WJF8MYYtAYGtXA2XUwJdIFAbRV E5SLAaTBZjNETgat4VKXAnCUB3WCV5AuGaKUEaCZIsHCmlVNLuZDKhEPR8DRNkBLErQN0XVaAlPYvvGZ MHPhn9AUesL3t7WPMpMJ4MI5Hie7FrWeNtXIJRXNzb IT1pidQtMJJeId2EM0nKMdpdMvFhSuZ2C4LnUVF6ENC3QJQ0J5LjJtGpRTA2BlK4IC3kBIWkDyH9ZjHl OBH3Lpv1FeM3DpY7E2WpQrBgNJBmLtgoThQjMI3JBe6TBkE0LCK0vTRcUh0BJGPsMbQFRbMtWN5QDIb= ID Date Data Source [id number] 01/23/2021 09:07:03 AM [facility] Name Value Range Interpretation Code Description Data Kayley rce(s) Supporting Document(s) Progress Note [facility] VNDZWw9eRpTLNaUx85/SZNnjHCTkv8LmMSwrHFz8DXgzLWAeK6ZoCIR5zM5sXFV1LSdIHlJuEcRiVFCv lbm [file] Ly4IBwQ8WDH9jXCuEm1GEEJ8QXjHAfNzMA9JARm= ID Date Data Source [id number] 01/21/2021 06:01:36 AM [facility] Name Value Range Interpretation Code Description Data Kayley rce(s) Supporting Document(s) Progress Note [facility] IKQIVk7wSmHBNjOm81/QPNjvMHAxe7XlWBnlPSa4AMbzXOYmQ8KlVWT0iO9iVUU9NGvLEbMxOdFoUFEr lbm VfLeyRCrRbSOMnVhiBGfCdLMjcSdrclCEiCI9YoMK5IUGyB27lDYDnYABzM0ViTXIgZBK+Rb8GDRLjeW LgSC7JXodP7V3ni7lN6FdB/zoNifY9XPtS4NlgDDJorBQdOirE0LlxnivKsyEI5MuYezVZ+9+A1V4Sjw zbveIRN7RMrHyYxxfzmLtzpD5lHbt/i7dU5FnPPkq/ m1+OURphWsi9S0IU0pxZbLZCYZf5PE4dXkeP2scDhy/Aiytx+HhINWHqaJ4XFmXvLRPJQv53ksg4h5ck Sbp+Dg5urOWVA/CKdBf2zoPttKXC7ub/gndzfAuTQCsEA2ceh1w+d77wm9mzaHYMesl+k3JktmIMGzXt bdbiFzaxMuy6kNCAOrzMUcaQ3JsgWoFgNJQ4oLQ9VY iPbQoX9WGmEWS1SEUKKPtowkYfegtGHtp8Lynq+6lJKD5Ws2rncWySplfC10hyW7NSz9igOsquCDkLpk BkOjyf1zgkMeDg07Jm8zP2skI9ApD8KZB0PGGwZyU00CFiJ9iRX2NSpwaa1zvToVv4GfLLYGrolbnPsV 5uHlL5in+KBfYM5gozISQhdH9fsbbi8awb9vJ9MfuU gidKNI9nbrWO5hlVu6WoOvJRBgSTjN6Kpd57hmBM6KThvAJLbqfVwSBzvG7XOfN0Okf1UV7+12A9+Jerel [file] UgY9ClCJ1xYYYXOr7+VCimiCZazEnjQNKFFoX0GhUlPKjyZKEVGd7K ID Date Data Source [id number] 01/15/2021 09:19:41 AM EDT [facility] Name Value Range Interpretation Code Description Data Kayley rce(s) Supporting Document(s) Leukocytes [#/volume] in Blood by Automated count 9.7 10*3/uL 4-10 [facility] Erythrocytes [#/volume] in Blood by Automated count 3.41 10*6/uL 4.6- 6.1 L [facility] Hemoglobin [Mass/volume] in Blood 10.9 g/dL 13.5-18 L [facility] Hematocrit [Volume Fraction] of Blood by Automated count 32.3 % 4 1-53 L [facility] Erythrocyte mean corpuscular volume [Entitic volume] by Auto mated count 94.8 fL 80-96 [facility] Erythrocyte mean corpuscular hemoglobin [Entitic mass] by Automated count 31.8 pg 27-33 [facility] Erythrocyte mean corpuscular hemoglobin concentration [Mass/volume] by Automated count 33.6 g/dL 32.0-36.0 [facility] width [Ratio] by Automated count 13.9 % 11.5-14.5 [facility] Platelets [#/volume] in Blood by Automated count 342 10*3/uL 150-400 [facility] Differential cell count method - Blood [facility] Neutrophils/100 leukocytes in Blood by Automated count 65 % [facility] Lymphocytes/100 leukocytes in Blood by Automated count 17 % [facility] Monocytes/100 leukocytes in Blood by Automated count 17 % [facility] Eosinophils/100 leukocytes in Blood by Automated count 0 % [facility] Basophils/100 leukocytes in Blood by Automated count 1 % [facility] Neutrophils [#/volume] in Blood by Automated count 6.44 10*3/uL 1.8-7 .0 [facility] Lymphocytes [#/volume] in Blood by Automated count 1.60 10*3/uL 1.2-4 .0 [facility] Monocytes [#/volume] in Blood by Automated count 1.61 10*3/uL 0-0.8 H [facility] Eosinophils [#/volume] in Blood by Automated count 0.00 10*3/uL 0-0.5 [facility] Basophils [#/volume] in Blood by Automated count 0.05 10*3/uL 0-0.2 [facility] Nucleated erythrocytes/100 leukocytes [Ratio] in Blood by Automated count 0 /100{WBCs} 0-0 [facility] ID Date Data Source [id number] 01/15/2021 09:48:17 AM [facility] Value Range Interpretation Code Description Data Kayley rce(s) Supporting Document(s) Prothrombin time (PT) 13.3 s 11.6-14.0 [facility] INR in Platelet poor plasma by Coagulation assay 1.05 [facility] Routine intensity oral anticoagulation I NR is typically 2.0-3.0. Target INR must be clinically individualized. ID Date Data Source [id number] 01/15/2021 10:16:25 AM [facility] Value Range Interpretation Code Description Data Kayley rce(s) Supporting Document(s) Amylase [Enzymatic activity/volume] in Serum or Plasma 77 U/L 28- 103 [facility] ID Date Data Source [id number] 01/15/2021 10:16:25 AM [facility] Value Range Interpretation Code Description Data Kayley rce(s) Supporting Document(s) Lipase [Enzymatic activity/volume] in Serum or Plasma 83 U/L 13-6 0 H [facility] ID Date Data Source [id number] 01/15/2021 10:16:25 AM [facility] Value Range Interpretation Code Description Data Kayley rce(s) Supporting Document(s) Albumin [Mass/volume] in Serum or Plasma by Bromocresol green (BCG) dye binding method 3.9 g/dL 3.5-5.2 [facility] Bilirubin.total [Mass/volume] in Serum or Plasma 0.3 mg/dL <1.2 [facility] Calcium [Mass/volume] in Serum or Plasma 8.5 mg/dL 8.8-10.2 L [facility] Chloride [Moles/volume] in Serum or Plasma 99 mmol/L 98-107 [facility] Creatinine [Mass/volume] in Serum or Plasma 0.87 mg/dL 0.70-1.20 [facility] Glucose [Mass/volume] in Serum or Plasma 107 mg/dL 70-140 [facility] Alkaline phosphatase [Enzymatic activity/volume] in Serum or Plasma 107 U/L 40-129 [facility] Potassium [Moles/volume] in Serum or Plasma 4.5 mmol/L 3.4-5.1 [facility] Protein [Mass/volume] in Serum or Plasma 6.4 g/dL 6.4-8.3 [facility] Sodium [Moles/volume] in Serum or Plasma 137 mmol/L 136-145 [facility] Aspartate aminotransferase [Enzymatic activity/volume] in Serum or Plasma 33 U/L <40 [facility] Urea nitrogen [Mass/volume] in Serum or Plasma 8 mg/dL 8-23 [facility] Osmolality of Serum or Plasma by calculation 283 mosm/kg 275-300 [facility] Creatinine/Urea nitrogen [Mass Ratio] in Serum or Plasma 9 [facility] Bicarbonate [Moles/volume] in Serum 28 mmol/L 22-29 [facility] Alanine aminotransferase [Enzymatic activity/volume] in Seru m or Plasma 38 U/L <41 [facility] Anion gap 3 in Serum or Plasma 10 mmol/L 8-15 [facility] Glomerular filtration rate/1.73 sq M pre dicted among non-blacks [Volume Rate/Area] in Serum or Plasma by Creatinine-based formula (MDRD) 87 mL/min/1.73m2 >60 [facility] Glomerular filtration rate/1.73 sq M pre dicted among blacks [Volume Rate/Area] in Serum or Plasma by Creatinine-based formula (MDRD) >60 [facility] ID Date Data Source [id number] 01/15/2021 10:16:25 AM EDT [facility] Name Value Range Interpretation Code Description Data Kayley rce(s) Supporting Document(s) Triglyceride [Mass/volume] in Serum or Plasma 81 mg/dL <150 [facility] ID Date Data Source [id number] 01/15/2021 10:16:25 AM [facility] Value Range Interpretation Code Description Data Kayley rce(s) Supporting Document(s) Thyrotropin [Units/volume] in Serum or Plasma 0.750 u[IU]/mL 0.270-4. 200 [facility] ID Date Data Source [id number] 01/08/2021 05:22:53 PM EDT [facility] Name Value Range Interpretation Code Description Data Kayley rce(s) Supporting Document(s) Progress Note [facility] QHFQLc9mMyLNCuHn56/ITYavLTSpq2KfDPdsPDg0MRjsFLZbV0XlBBR9lV1bZHI6DPvEJbWpRiIdALR0 lbm [file] AgICAgICAgICAgICAgICAgICAgICAgICAgICAgICAgICAgICAgICAgICAgICAgICAgICAgICAgICAgIC AgICAgICAgICAgICAgICAgICAgICAgICAgICAgDQogICAgICAgICAgICAgICAgICAgICAgICAgICAgIC AgICAgICAgICAgICAgICAgICAgICAgICAgICAgICAg ICAgICAgICAgICAgICAgICAgICAgICAgICAgICAgICAgICAgICAgDQogICAgICAgICAgICAgICAgICAg ICAgICAgICAgICAgICAgICAgICAgICAgICAgICAgICAgICAgICAgICAgICAgICAgICAgICAgICAgICAg ICAgICAgICAgICAgICAgICAgICAgDQogICAgICAgIC AgICAgICAgICAgICAgICAgICAgICAgICAgICAgICAgICAgICAgICAgICAgICAgICAgICAgICAgICAgIC AgICAgICAgICAgICAgICAgICAgICAgICAgICAgICAgDQogICAgICAgICAgICAgICAgICAgICAgICAgIC AgICAgICAgICAgICAgICAgICAgICAgICAgICAgICAg ICAgICAgICAgICAgICAgICAgICAgICAgICAgICAgICAgICAgICAgICAgDQogICAgICAgICAgICAgICAg ICAgICAgICAgICAgICAgICAgICAgICAgICAgICAgICAgICAgICAgICAgICAgICAgICAgICAgICAgICAg ICAgICAgICAgICAgICAgICAgICAgICAgDQogICAgIC AgICAgICAgICAgICAgICAgICAgICAgICAgICAgICAgICAgICAgICAgICAgICAgICAgICAgICAgICAgIC AgICAgICAgICAgICAgICAgICAgICAgICAgICAgICAgICAgDQogICAgICAgICAgICAgICAgICAgICAgIC AgICAgICAgICAgICAgICAgICAgICAgICAgICAgICAg ICAgICAgICAgICAgICAgICAgICAgICAgICAgICAgICAgICAgICAgICAgICAgDQogICAgICAgICAgICAg ICAgICAgICAgICAgICAgICAgICAgICAgICAgICAgICAgICAgICAgICAgICAgICAgICAgICAgICAgICAg ICAgICAgICAgICAgICAgICAgICAgICAgICAgDQogIC AgICAgICAgICAgICAgICAgICAgICAgICAgICAgICAgICAgICAgICAgICAgICAgICAgICAgICAgICAgIC GfNJKeIDQqAUEsRIOsJUWfLHQmYOXgVVGkDZWtEFDhSEEwJOLoLXv7C6hhAJBwZKTxRF9jSId4Dy6+DQ nPPsUaKPA9qcCuuH7SEZ2gz7EzSDpfALVif3GuAIr4 KA1EZMXcBIhxDU0XIBtgjg8MQSSbVMYyvQRTv8ksSvCjYHM1SKBbWlynOU6KCNXgB7kazhLbNOVdFBYG GNkrGEQLSIRyYRFaRlSbMjYdEYIbZPEwJPAMMYJ7KCHlFwJnGKeeYA9By3UprBR6LIt+Nj4ZRX1zj9Wg NQaxKDOzOG1rdn4RSMwQOxDeF8UzpdZ2YOP0ACCaKf 9CSOVlKTVjrUKuTLJoMZIVSaJrV0RerX31BCLVYb0+NYmiosYiGfnZUoW4RRZiv4AkRKb4IN9WXYWjVH s0sWTgVFRtO8Ldg3KjAi42QSQsVvuoGvrbr3qnwzDaMOMhhPvmCRqlVEMvDEHfGZOzWyysYqAbBUYqQz kmIQZYEWzRReAdB6Cxk2GjAsV1XSUaUvDbVVetDBWy CtP9IG61mVwlWT2RYTRuHPIpTV86BQG7XYWfUd1ITf0TCjMwBG5kor4GJiRjYI5ohd6WXSvQPoDlQ4W0 zCGrN6Xill24LL3KsUE4cHVeQP5RwY5dMR6Dy8GvHVGzQpWjKHHnZHNkZFRrYJNnShHwXV4KVDQsEhZi pEErMGUwYlzvXCGcFxWtVlZmSJ2KVBEaYSA1VO2JPE 5CLiuyH6MKAUlemJdwHkWMVME/MGYHQMKJDNurKXElN06OG5AINSvKJwxcESsMDgmdHg5cUIq+Pg0KZW 3uf4BvKSo4RMQjYM5qnq1PDFhHWxDnC8F5hOMwV8O1PIxhEr6LXNRwQBYwDxTcKDCOBWntXP2NFK8yxm F7WB0NvSIwNDLtRZUbnVAqRHb5P59uhPMyNRytCU7I ICA+Pallavi+Jc4ERCAvYJKiMVRhJlWpCNWSLbHbJ6KoW7SCj8UuF0RrDE30xRccmoVpOIzgOU3HAH5uFOVz UXHYSI1TtFZzwE9gnxIoKQJnOHQUTtPjJ01uwHIcCWGoDFJ7BEKxIa9EMQWtM9FuqvCycZswrnKsNPGm VWAKKQ5WKMefcyBooSAhyIoxVX95yDybQD9XWr3XLx DkID6ura3OhOKsUj4IHEP5ZN7YPKMaIKOrHIWpVVX8FCAvGuCrIWijZBIjGVGpJGT6YIReQGNgSP7DPy TmOBCuJSQ7TvnhHCKoJPWgzp9KRFSkSSS5SBCbTQDvUDMtFMUvSUbzKRWgRZXzPYK5KXKnBKRbMN0UEd UhEWPlNFR2ZOhrQHUxCNHpye0QRVEtWKO0DPr7HZVf BGSuJPSeBSyeWIYzXZTmIlm1WSNxRYBjPU7EGvTpKHHwFBllXqRyEKFwYSSjas0FXTWhHMYjVSJbODEl ANSsHTYwCIggTNKxFVEaOAJsHTHkILLjTH6PPdAxVDJkIOZ5FLNsPIUqTFGdtr3LMNZdYMQdMJJxReNr ZCQrBWGvNRplSSMzZMO0JXVnZGLhWNIhAZ5FRrAsYC UjWQa3XCBmLOXkVSHebp4ZYWKwFAMtXqs0EiBfDPRmZOQoMLfuJJOoPTY4EywcLUFnCXNpDM7ENtMlAB EcPPk4KRMkBGXgEKThfk4XSMZuXMEtTKh1IkZzTJFoTXCrDFojZZYwUMJbOWIuOZMtZECaXU6BEtCeNT VoNmNsKxXsTJAbPOZjcv3OXBOfMSAaZVM8FCMgCRDu BWMnYFauSWWmKYRjSaa4HCGjJJThDU7BKzUoDDFaJmD8GoQqUAYaODHdwm3SXYEuMBK2UEG4CQJsTTAd YMVqPCwqUSFeGQY5XiF5RNLlJDAeAC5ARaEmAPWuUFN7AtIgLIJpODNuhf7GVKXvSOO8KMMzZEMdMHTg JYSpRXvtSQHqRPE1Uvm7UPUpLDMtDM5QMcUrQXKjXG D1SXwhVYXiYCIgov4ZYXXcDOF1QfbcBbKfWMOaGECdAUlzZZCpPOL2FFv8LBWeUXWwFG6XSeUaWOBzXO G7UJVhBQQfXQCmmh9LVWBuSMG9UcO3HIBnONIiAYNzDQfoSEYeIGWkJzijNGMlNRLtJZ5GLnTyXIPcWN I6QWDyTTLgMCChnz3KQVBxVJR7Dsv2JqXlIJGcZYOb VGoaRUOwUDHuKTngZITbIXWkYL0EQgZuPNNiYFY5EiEsVFMdCORnbq1OZVMxKAI0RDeuBkUbUMEvLTQw DIbvUDHoBIN4TURpJDJoJOMwCK7NKuQyTGrkUKWWAym3YTcgQ3p9EUX8GM3KU0Vuc5PuICSgDRKILDvm ZZ6kytYaBDRmHb3GL7mZMna7WQH2JLNuCHBqV1UdYJ SaXgU3SGv1GKyeBpB0RRH5CQ9mQLguGlI6MWSxGkX3VFL5GTJmOPB6WoW7QeF4TzVoPnxsKzCzNZ4PEz 5LNqK1SYN0qRDoQt1AHRRrFWOTDhBqYK3YTXt= ID Date Data Source [id number] 01/01/2021 01:03:[address] [facility] Name Value Range Interpretation Code Description Data Kayley rce(s) Supporting Document(s) Progress Note [facility] AKODDz9aSlERQvLh92/MCGrlQQVlk0WjKQrnJHr8OTzdNAOvU3InRTD2tE9qJKZ5JLgHPlCdXlRlGGPx lbm YtIwfGZvUeNWSmDqfRZnLtGZloLzlhuXVwEL6XcNH7MLUtE99dPRYsRZMnS0ThRTKmFSA+Gm5JBNEudP EdNB8WGxbS8J5ks7tRZl2diU5ihaGGG6tb5xVpXGqHgaqrfUXqizWw53vfmmWu34bR32O3/q56ovYZ9K xt5sChrW8RZWEyL9Vxbz8MjHSuGIb//isGvmtZlsj+ bH/1QyWuZ+PMbdE5LHala1W/skHkBmUFll/ckP5qy/c9IXgDxntISYsR8U81bLnXinHGheYE6jcEs5I2 Tuarp+AnRr3R7on9Ee64Na+8EHYY+Fcr8i3renm+L0hHcsxn5VzDf+PW1gmsCSnDaFJ55L3odECw8im1 ukHUYbOyx7ug00w5DCq+lpcJZvDw0FajB7CMU0JEGI NxY5Z/cvfQBhSbiPSVs2EXuzzOYeaF8LfEuq+Caleb/qVX1yxKe3I7oE7r9isY3M57bXsgySIbymt5suYx [file] inpatient services director/keaj+QO2zu9YK2GFPXYvye3BCEc2/bWIlpXwstQaTlnXc4chFESgRLhSwkiFtCK+lbzOrlxhVPEtd [file] AgICAgICAgICAgICAgICAgICAgICAgICAgICAgICAgICAgICAgICAgICAgICAgICAgICAgICAgICAgIC AgICANCiAgICAgICAgICAgICAgICAgICAgICAgICAg ICAgICAgICAgICAgICAgICAgICAgICAgICAgICAgICAgICAgICAgICAgICAgICAgICAgICAgICAgICAg ICAgICAgICAgICAgICANCiAgICAgICAgICAgICAgICAgICAgICAgICAgICAgICAgICAgICAgICAgICAg ICAgICAgICAgICAgICAgICAgICAgICAgICAgICAgIC AgICAgICAgICAgICAgICAgICAgICAgICANCiAgICAgICAgICAgICAgICAgICAgICAgICAgICAgICAgIC AgICAgICAgICAgICAgICAgICAgICAgICAgICAgICAgICAgICAgICAgICAgICAgICAgICAgICAgICAgIC AgICAgICANCiAgICAgICAgICAgICAgICAgICAgICAg ICAgICAgICAgICAgICAgICAgICAgICAgICAgICAgICAgICAgICAgICAgICAgICAgICAgICAgICAgICAg ICAgICAgICAgICAgICAgICANCiAgICAgICAgICAgICAgICAgICAgICAgICAgICAgICAgICAgICAgICAg ICAgICAgICAgICAgICAgICAgICAgICAgICAgICAgIC AgICAgICAgICAgICAgICAgICAgICAgICAgICANCiAgICAgICAgICAgICAgICAgICAgICAgICAgICAgIC AgICAgICAgICAgICAgICAgICAgICAgICAgICAgICAgICAgICAgICAgICAgICAgICAgICAgICAgICAgIC AgICAgICAgICANCiAgICAgICAgICAgICAgICAgICAg ICAgICAgICAgICAgICAgICAgICAgICAgICAgICAgICAgICAgICAgICAgICAgICAgICAgICAgICAgICAg ICAgICAgICAgICAgICAgICAgICANCiAgICAgICAgICAgICAgICAgICAgICAgICAgICAgICAgICAgICAg ICAgICAgICAgICAgICAgICAgICAgICAgICAgICAgIC AgICAgICAgICAgICAgICAgICAgICAgICAgICAgICANCiAgICAgICAgICAgICAgICAgICAgICAgICAgIC AgICAgICAgICAgICAgICAgICAgICAgICAgICAgICAgICAgICAgICAgICAgICAgICAgICAgICAgICAgIC AgICAgICAgICAgICANCjw/yOPjB3lklGKleaS6B3uy Jl9DAb0JNG6vn0AeNBZsOUmrrjEnOthSFkOqQXRsBiaXPed1VPshXF9CeTIqH8WvH2AdQTplWZ8SJNQc VHLrmMCoAWQxCKPpMoZ1DOKuDYzhPD0PlHOjEZixAAYzCLRyZZJzUINrGTLzCCHJIDHqLXItEjByLANn RVAnJSKjLJYXKC9XZxJlM0EsnD61CAJWPt7+DQplbm GwWmgEWhX8UVFtx0OqDGi7RW9PPRYjBjgrm7TdRVOaACUCTQepSQ2OYLE2IUZrHSFkDp7PJAMnG324so WsTG6PBy6ZJcUtUR3cbk1VYNEzWLItKcrJUjw6JPrcIT6WgPGgJMpPma1lxrBodgVDq8CfgdYwdVOXhK Pyo5FaSCQBHILtnMLhHJXFYPZsfJApHV7uLE1bCUUl YNUrFhUvARGEUJ7DQOMfXWFsuUAvCEXnRVHMUE0ATBedFAF6BGGzunJdtAYfDRzsGU0TNTJggoIpZJou MCBSDQo+Md7GGA1zr1RdJSi4ZPJkd7SmNTd5RD5NCEUrMJxyGVFlMS0ho9WoC3G7ChC6dSScA1ulpwty Z0HaslEosfZvACBvGKDtJL1HCN0TCH2OAPJnWGeoME 9WQTD1KPg5KjVcTUNpVLUrDHY4Fz6uWQmhKL3KPRh5N5JfY8LPFIUdKSBVQOBetUO1JUIZOc8HC4WCId dQDMYXKn9EIlXvF7CMV3qNY94OQH9SWBR+PiANCj4+GCeyraZmSmlAFnRsWHZcn4EfAJi3YQ1PUITiLO igRF7RLJLkfG7zKChuTI0DBuB4HnNwUZURQxFmS09l lXBzLBs3Q8HjMdVjOCCiUpqgZNIhSAssPqPrECXvYnCbXVtwXH5+ID4+CNvmLS5EEHyvmwLrMWHtJn5D HRRwENZfIV7uGNRfDONfS3H0nEvuAVADNtMqR7hcbpnzIS4yMFEwI431eLpuirLbYNV0JCJdJc5LFMWo FOC5TQSzgMKnZTkuXLCFXVmhBM2PaVQrRLV6zG5aUC eoVBCvAOIfT4aRRjPwzNlwDA17zKfsrpPwkZPsUTp+Jj1VNW6lm9ThZYu3jaGvYGowBCZwMUpmHKSqFV YqQWSzHUQ0DZU6CSERDgPuKRJkIZDxXSigHIIuECVoba2NETPkMLH1MnLeFPBjRDVwMSMnXBtnNUEjCS E1BZJ2AWXcJCXmFC3HLaWjSMNiCTDlHQeiDFMoHVHp vo7SLTOuXLXkTpVsWSLjCRItLAPwOAcxVNAcMZF5UFUwIQAvXYEiQA3TDxDzBNSfIXC4AlJnQJYoYRIx kh0VBIOfVSTsBvx6NnZlIPUeXUGlRLuvRVVzTYI4WIc3PBHjJLGmYH0TIzGhSTOwIZKiQLHqLQKxXSOj ev1XYRDhTMBfLJC4FJXxPOMhEOEfEJvkAAMtHGNcYV h3NQMgSZMnTV8BBpGsVZIqVAVzWAEmCDNcEDKqde6JBIZxTXJmUPptSWGeTQUeLEAvWAmnRVYtESP2FL T0PSDcJHFqWE6NVoPcUILwUlY9IgGqWWKcBEEoer3AWDCtRBXeIOS3XMIwRWHqOYYiTQsoPKRtRMWtZf J4RBQqKHJmJJ8TZuFnGQUrRdJ7YvAtPREwLUMdtj0W FFYjKBFkZiOmKETeBAFqSSEbZCjgEAUdLHJqMTB3VTVtAIJaLF9WKtUkODBcYnLxFaTqCWJcNKLoir7V UIQhVTBvTdP4ZEWmJONgIJBjKDmbYHNwPFY3Xkn9CUCkKGZyED6ZJzAdPOTmXlTtIZAsSPChBYKzdo8N QQFhDJKoGPNsXvNzMHHtDJOmALryHPPlZIQ1YNweXQ JxGDXzWO3SBzNkWHEkXcE6SOwnVFOhNFZrdc1KFMAsXECgWcS6FdZzSOQsEVFkKCuaTKIaAXU9OWVhUP UdMFFjAL3TXdAcVHQdIbghVPMoOUNdFBMavo0XFPGbUQP8JBH9BWKuJKTsHWUkXWxcBJZdRSK5Sgx1BV FcUBBsIL9GTmFlIXIvBPu7PMVaSTBlYQChyo9JTMTu YCA8LFF7HyDaPDRwXGOtEVueWKQhESW1Ino2SAIiRABpVS4MXyDnSHUiPXWyBvIaGBSmEREazd4MJOWt ZDA4ZRPiHLKrZYMzSPSxCMxbOSJxZCWfMOt2PZIuISLsJB6WUfUnVRCsRQS7ZTWsUSFiAPJoab5EQJTf VBF8OPx2CvPaAAQhTXImKAnnDYSdVJF2RDf1VUWsRS ObLA8GCyBxXSZtKQIgBeVcREVtIMSofy3CGKOkDUT6LxX4RhHhDYAdODBoIPguHLYaHCO5VZk4YVQpBO YlHX7XXbAkYYIbTAR1PkYwNXIbNUAnqu5SQABoUKA1Qao7ZzYiFBFcZIIfAGdwGWQeBMK7JOK8HPUhFD WsOF5ILjRrBXGsXRa3FtaiIFRlEYYrtx2RYZOzQAV4 ATIkYGSeUYYjLJVtCVprAFRzINH8QiB5IAHmFTZnWA7XExKtUEwiAZKFNiv7SWqaG6u3LOO6Wn3SQ2Qm y9OuXOFeJLUIFBllGT4eskZiTTSyLx6TD1xCGyfwLYE1TGZ1JDo0HPAnIPlrHFKcAOGzPLH9FYT8RHL4 Mn8sWALtIPChRwJ8YrvnXpMwOWV7BBHfShY3DWx4Va fpHZHuUfYuZJ2PWs6MLoB8BOT1sPUjWr6KLPw9KFYWAoCmNU8HOQk= ID Date Data Source [id number] 12/28/2020 06:28:37 PM EDT [facility] Name Value Range Interpretation Code Description Data Kayley rce(s) Supporting Document(s) Progress Note [facility] KONCNm6eVjBUJzFr54/MXRofRBLte8YiKUgjNVh8ALcsZXSnN3YmMHG7yG4gCFC6ESeTMkSpNfFcXWI0 lbm [file] nW+DPpHaALHD/+ol70BjBQWf+zoTKpa6/3XWFTY [file] dGE+DQogICAgICAgICAgICAgICAgICAgICAgICAgICAgICAgICAgICAgICAgICAgICAgICAgICAgICAg ICAgICAgICAgICAgICAgICAgICAgICAgICAgICAgICAgICAgICAgICAgICAgDQogICAgICAgICAgICAg ICAgICAgICAgICAgICAgICAgICAgICAgICAgICAgIC AgICAgICAgICAgICAgICAgICAgICAgICAgICAgICAgICAgICAgICAgICAgICAgICAgICAgICAgDQogIC AgICAgICAgICAgICAgICAgICAgICAgICAgICAgICAgICAgICAgICAgICAgICAgICAgICAgICAgICAgIC AgICAgICAgICAgICAgICAgICAgICAgICAgICAgICAg ICAgICAgDQogICAgICAgICAgICAgICAgICAgICAgICAgICAgICAgICAgICAgICAgICAgICAgICAgICAg ICAgICAgICAgICAgICAgICAgICAgICAgICAgICAgICAgICAgICAgICAgICAgICAgDQogICAgICAgICAg ICAgICAgICAgICAgICAgICAgICAgICAgICAgICAgIC AgICAgICAgICAgICAgICAgICAgICAgICAgICAgICAgICAgICAgICAgICAgICAgICAgICAgICAgICAgDQ ogICAgICAgICAgICAgICAgICAgICAgICAgICAgICAgICAgICAgICAgICAgICAgICAgICAgICAgICAgIC AgICAgICAgICAgICAgICAgICAgICAgICAgICAgICAg ICAgICAgICAgDQogICAgICAgICAgICAgICAgICAgICAgICAgICAgICAgICAgICAgICAgICAgICAgICAg ICAgICAgICAgICAgICAgICAgICAgICAgICAgICAgICAgICAgICAgICAgICAgICAgICAgDQogICAgICAg ICAgICAgICAgICAgICAgICAgICAgICAgICAgICAgIC AgICAgICAgICAgICAgICAgICAgICAgICAgICAgICAgICAgICAgICAgICAgICAgICAgICAgICAgICAgIC AgDQogICAgICAgICAgICAgICAgICAgICAgICAgICAgICAgICAgICAgICAgICAgICAgICAgICAgICAgIC AgICAgICAgICAgICAgICAgICAgICAgICAgICAgICAg ICAgICAgICAgICAgDQogICAgICAgICAgICAgICAgICAgICAgICAgICAgICAgICAgICAgICAgICAgICAg KRZtLNHfGVTpCMTdCLUwPVUtVPIxWYMxSMYyRGFcFQAbGLNrTONhFPOwEHXiDDLkLSIuVWGaCNa9J1zu MAPbZEZuCA1gIFa6Pp7+QAkWMpYdPHL1aiLnvD1MBY 1yf2BtPVpyCMUse4PuWEh0QW0IQCApHCpaNH9KVZwvwr7PRQZqQBKvzYZJr8jnKnGaNFE5HXIfGxcxCC 9WNXHtF1ezizYmONGmADEFQEkoDIFZBKodVGCXYWEcFBTnPkKlAzEbXBYrBEEjEJETCRD5CSUoMaHyDY AwIFIgMjEgMCBSIDIzIDAgUiAyNSAwIFIgMjcgMCBS CD4HPoZuM8TbvE04UDXbBFn+Ku6WYE7be5HgZLq5SGGiRN5mso8TEOqXVyDyI5WqcrE6OCN7PYGhSo5E XMPxFSKanCK4SnShPJNSUbKdI2KjzP79YZKBNt8+FVpqyaRlXugGBxV6CECbm0BfOQg7YO2SBWNdUXj5 bIPxJUAgK0Dep2UbHl92QNMdWhukRzetw0yatyWcQM FktEuvLLfsNUIwKFUhOUAnXHXmRjDrCYVkKGofMETWYEyFKmNuA9Hyl5EbZlK6YUWnDjByQKfeXLCqVq X9PK91hSgxHF6BXVKwVLKbLQ37IHX6CUTbMx0CZr9ROwWaPO3xbo1NCCgpECKqPopAQpg1ABwtVG7EoP JwW6NalGPin8xICsZgU9OGHGAlTZToLw0NRWFtEjOa CVZbSUqjWO1yVHFnLAYVaEyosjY4SN8AQF4tabBtDJ4HNkNeRo9iZn8NYdEtL2VaM0MnGQSbRJPPYUln GE4HNAexZY5kFS6Or2ZOcRAhnN7zmo8CNTIhIRDqKgslyy2HZdhaG3H9kHjlQEDaXMIoRBJLHOewLN7M LJFeIFL4HFV9BBIiLRYALiUaF68iCE9PQ7Rke98jAp P4HCVhMnUlVVjgWK15rVjbsfUyaZFvhUdqXB9IRq5+DQplbmRvYmoNCnhyZWYNCjAgNTgNCjAwMDAwMD GsRIIbRmM0NzPcCx9LBYAmHFDpDMQaUmIjSIXtVKGhFGsiAQGuAXj9LBfiBHXvRPQtJL5CRzIqKUOoNO S6ZbNfMLXmHQWagf6OEEEdKMSrYDD8RlPmAXQdZBOd KGnmJRIbQOS4KgZ3BSFnXZQgZG3RRsEbQKGuZUN6EwJuYFTbGHUdwy4WOPQeMAIvXSS6AnMeNVUrRARd ECbhESUiWLC6OzpkCQPeSQNjLH0DBfNiZBItZOV3MMVaWVEsGRKmtv2VQENdEXSeGZnfARWqHIQbAJDp FPxaRCIwOLPaMrg2SEYbMPHuLZ0XSxOaCGAyZVZ4JN DvEJOkPXXjxk9CXRIvFYFmTvV4AXXfPHDvYXEcXGuhYQYkYUU0BIdkAIPtEXKnNC0UUlWwPVGdZCdjKH NgEXScKUUpry9FOCVvIHRjXGPfUOMcVFFnEJLuCAtjHKVrZTUgGjI4YHTjNNCzKY2CApAdXROzLlC6Ui JsUXZnWQGetw6GZZYwTSYuYds2EhHsPRDaRUAgAMge UVUrHJLeTWm8FERfSDAdNW6SObUsYTDwXyW2XEUrFTVsHQKwon2BUBMyTPBxYxF2WFIgTVTaGUCiUOms DXSmBHEjKrbqPNAsSPZpPK0AAxJaPIVqBfS2XAuxTRZcIDClcj2FQOUyEGCsOaaeWFHzMROoPBXaBCdr RKAdMVY9ZZU9ZTIiJRXsZK1ITeVxBYCeOkB3QDKaUK LsUPFgqu5CKWWiIHOpVBPlLWKcDVXhTDAbWUhxKHJyQES8JMteUHShVMNwML2JHoQoWBNfGmVwRadmMI ZxQWGymj2GKJOpEZTsHcR6JNViTHPpGPGrSExwEISdRRZ3DHMjWJPiCVJcVJ6OPlIuGHMvJts4QYDaJF JqAWPuvv6JFLGbAUUuAxuwRBLsXDTaXUWcPNopQWYl ZIO4IDT8RMWgEJTiDM8GRuVsMDDzRbg4DPPyTYVqOQBnog7ZDEOwESC9ZKoiNWYcUTNeXLFtGSroFYEg ATseEhSeYAVhYWWjXI4WYtFtNLCcBaS2ObryDZBuNVEyrx3PUFPsHKT0BRgkWVJvCGMaRVJzZIevDPBt DWboRSfiIIOnDVPlLF3SToZrOATgRkYnOhIkEPAqFS Ddhg5MCLJgLKP7VeZcQTLwQPWmOCLwUMxpQSHkVCe8HmK5KUZzDOCeFU6UJbNwVRLgNvt8JLlyTCEeOL Bmze7XGWAfJGX1Pdd6KEIvPAWzIXDwRUrbZNFdOYo8QDL5OMJoMITcBN8XPyStBFWpAgkuHLOuHXUcWZ Qjly5VXZKtPEI2PNT0TQPwVPUoWNGvXFrlALKzRSr4 XXZkJTCrKUXzCI5JZaXyWTSnCii4EXGqTSDmAOAtjk1XHKOoTFD5PAD5RdVaOMMeHZEeSWhvLLSzHZb2 NRZdYKTpEIFvJX8LZzAxUGNzVONtAcVwJCDcVRLmlv5CTLYuPEN4HLysFVUhACGyPQPkTUbyOSJdYVrb HMKmAJGlEFXlLU2FDwHjEAYcWRQdScWcMLWlDRWlyv 6EoDQsjUkpso5DLFzZIl9XsYekGJR6FNyhJe9bcGJ1DkDhPRVOGx1DqjRsUWApFHJJBMjkFRGiXYzvVI e6VdW8EfVcBAHoIWQqWfTjMNF7J8A3WUJ0XsZ8PyL0JXEjOnX6RKCuT2O5XtYuF8VqXGP1QBXlDIp6Dx cyMzk+AQ6qGEa+If0Px5JlwwM0kdTlJRe2RqVfVl4DWQMZP4PGPi== ID Date Data Source [id number] [facility] Description Data Kayley rce(s) Supporting Document(s) Osmolality of Urine 249 mosm/kg 300-1000 L [facility] ID Date Data Source [id number] 12/25/2020 01:46:11 PM EDT [facility] Value Range Interpretation Code Description Data Kayley rce(s) Supporting Document(s) Potassium [Moles/volume] in Urine 22.7 mmol/L [facility] ID Date Data Source [id number] 12/25/2020 01:46:11 PM [facility] Value Range Interpretation Code Description Data Kayley rce(s) Supporting Document(s) Sodium [Moles/volume] in Urine 35 mmol/L [facility] Confirmed ID Date Data Source [id number] [facility] Description Data Kayley rce(s) Supporting Document(s) Chloride [Moles/volume] in Urine 43 mmol/L [facility] Confirmed ID Date Data Source [id number] 12/25/2020 09:20:44 AM [facility] Value Range Interpretation Code Description Data Kayley rce(s) Supporting Document(s) Leukocytes [#/volume] in Blood by Automated count 3.4 10*3/uL 4-10 L [facility] Erythrocytes [#/volume] in Blood by Automated count 3.53 10*6/uL 4.6- 6.1 L [facility] Hemoglobin [Mass/volume] in Blood 11.0 g/dL 13.5-18 L [facility] Hematocrit [Volume Fraction] of Blood by Automated count 31.4 % 4 1-53 L [facility] Erythrocyte mean corpuscular volume [Entitic volume] by Auto mated count 89.1 fL 80-96 [facility] Erythrocyte mean corpuscular hemoglobin [Entitic mass] by Automated count 31.2 pg 27-33 [facility] Erythrocyte mean corpuscular hemoglobin concentration [Mass/volume] by Automated count 35.0 g/dL 32.0-36.0 [facility] width [Ratio] by Automated count 13.8 % 11.5-14.5 [facility] Platelets [#/volume] in Blood by Automated count 246 10*3/uL 150-400 [facility] Differential cell count method - Blood [facility] Neutrophils/100 leukocytes in Blood by Automated count 61 % [facility] Lymphocytes/100 leukocytes in Blood by Automated count 19 % [facility] Monocytes/100 leukocytes in Blood by Automated count 15 % [facility] Eosinophils/100 leukocytes in Blood by Automated count 3 % [facility] Basophils/100 leukocytes in Blood by Automated count 2 % [facility] Neutrophils [#/volume] in Blood by Automated count 2.11 10*3/uL 1.8-7 .0 [facility] Lymphocytes [#/volume] in Blood by Automated count 0.65 10*3/uL 1.2-4 .0 L [facility] Monocytes [#/volume] in Blood by Automated count 0.51 10*3/uL 0-0.8 [facility] Eosinophils [#/volume] in Blood by Automated count 0.09 10*3/uL 0-0.5 [facility] Basophils [#/volume] in Blood by Automated count 0.07 10*3/uL 0-0.2 [facility] Nucleated erythrocytes/100 leukocytes [Ratio] in Blood by Automated count 0 /100{WBCs} 0-0 [facility] ID Date Data Source [id number] 12/25/2020 09:34:[address] [facility] Name Value Range Interpretation Code Description Data Kayley rce(s) Supporting Document(s) Prothrombin time (PT) 13.5 s 11.6-14.0 [facility] INR in Platelet poor plasma by Coagulation assay 1.07 [facility] Routine intensity oral anticoagulation I NR is typically 2.0-3.0. Target INR must be clinically individualized. ID Date Data Source [id number] 12/25/2020 09:45:[address] [facility] Name Value Range Interpretation Code Description Data Kayley rce(s) Supporting Document(s) Amylase [Enzymatic activity/volume] in Serum or Plasma 75 U/L 28- 103 [facility] ID Date Data Source [id number] 12/25/2020 09:45:[address] [facility] Name Value Range Interpretation Code Description Data Kayley rce(s) Supporting Document(s) Albumin [Mass/volume] in Serum or Plasma by Bromocresol green (BCG) dye binding method 4.5 g/dL 3.5-5.2 [facility] Bilirubin.total [Mass/volume] in Serum or Plasma 0.3 mg/dL <1.2 [facility] Calcium [Mass/volume] in Serum or Plasma 8.3 mg/dL 8.8-10.2 L [facility] Chloride [Moles/volume] in Serum or Plasma 89 mmol/L 98-107 L [facility] Creatinine [Mass/volume] in Serum or Plasma 0.73 mg/dL 0.70-1.20 [facility] Glucose [Mass/volume] in Serum or Plasma 117 mg/dL 70-140 [facility] Alkaline phosphatase [Enzymatic activity/volume] in Serum or Plasma 82 U/L 40-129 [facility] Potassium [Moles/volume] in Serum or Plasma 5.0 mmol/L 3.4-5.1 [facility] Protein [Mass/volume] in Serum or Plasma 6.9 g/dL 6.4-8.3 [facility] Sodium [Moles/volume] in Serum or Plasma 122 mmol/L 136-145 L [facility] Aspartate aminotransferase [Enzymatic activity/volume] in Serum or Plasma 34 U/L <40 [facility] Urea nitrogen [Mass/volume] in Serum or Plasma 10 mg/dL 8-23 [facility] Osmolality of Serum or Plasma by calculation 254 mosm/kg 275-300 L [facility] Creatinine/Urea nitrogen [Mass Ratio] in Serum or Plasma 14 [facility] Bicarbonate [Moles/volume] in Serum 24 mmol/L 22-29 [facility] Alanine aminotransferase [Enzymatic activity/volume] in Seru m or Plasma 23 U/L <41 [facility] Anion gap 3 in Serum or Plasma 9 mmol/L 8-15 [facility] Glomerular filtration rate/1.73 sq M pre dicted among non-blacks [Volume Rate/Area] in Serum or Plasma by Creatinine-based formula (MDRD) >6 0 [facility] Glomerular filtration rate/1.73 sq M pre dicted among blacks [Volume Rate/Area] in Serum or Plasma by Creatinine-based formula (MDRD) >60 [facility] ID Date Data Source [id number] 12/25/2020 02:03:30 PM EDT [facility] Name Value Range Interpretation Code Description Data Kayley rce(s) Supporting Document(s) Lipase [Enzymatic activity/volume] in Serum or Plasma 65 U/L 13-6 0 H [facility] ID Date Data Source [id number] 12/25/2020 03:41:[address] [facility] Name Value Range Interpretation Code Description Data Kayley rce(s) Supporting Document(s) Thyrotropin [Units/volume] in Serum or Plasma 1.030 u[IU]/mL 0.270-4. 200 [facility] ID Date Data Source [id number] 12/16/2020 03:53:[address] [facility] Name Value Range Interpretation Code Description Data Kayley rce(s) Supporting Document(s) Progress Note [facility] UXJDCz6jAtCUZvWn75/SQRquUBKob5ZkVSqhYYu4WLuwKABaA0OwNVW2oM1zUIQ8EOcECoOwOrFzDQH3 [facility] [file] i/QM9MMQEP1tiMtunMWmwm7iCJInv36e7rvZuPzylSKKSdC6lj5wZNI3AmeSfOYW9GNYEHvz1zRV+татьяна [file] VKyH2MgkzptXT/2YKhD7TvVEvsA4Po7FtIPw/b [file] DV9hIRlxEJqhe0KtimR9jpY2iPfEnMeE+vp scientific+uhD9ax [file] ICAgICAgICAgICAgICAgICAgICAgICAgICAgICAgICAgICAgICAgICAgICAgICAgICAgICAgICAgICAg ICAgICAgICAgICAgICAgICAgICAgICAgICAgICAgIC AgICAgDQogICAgICAgICAgICAgICAgICAgICAgICAgICAgICAgICAgICAgICAgICAgICAgICAgICAgIC AgICAgICAgICAgICAgICAgICAgICAgICAgICAgICAgICAgICAgICAgICAgICAgDQogICAgICAgICAgIC AgICAgICAgICAgICAgICAgICAgICAgICAgICAgICAg ICAgICAgICAgICAgICAgICAgICAgICAgICAgICAgICAgICAgICAgICAgICAgICAgICAgICAgICAgDQog ICAgICAgICAgICAgICAgICAgICAgICAgICAgICAgICAgICAgICAgICAgICAgICAgICAgICAgICAgICAg ICAgICAgICAgICAgICAgICAgICAgICAgICAgICAgIC AgICAgICAgDQogICAgICAgICAgICAgICAgICAgICAgICAgICAgICAgICAgICAgICAgICAgICAgICAgIC AgICAgICAgICAgICAgICAgICAgICAgICAgICAgICAgICAgICAgICAgICAgICAgICAgDQogICAgICAgIC AgICAgICAgICAgICAgICAgICAgICAgICAgICAgICAg ICAgICAgICAgICAgICAgICAgICAgICAgICAgICAgICAgICAgICAgICAgICAgICAgICAgICAgICAgICAg DQogICAgICAgICAgICAgICAgICAgICAgICAgICAgICAgICAgICAgICAgICAgICAgICAgICAgICAgICAg ICAgICAgICAgICAgICAgICAgICAgICAgICAgICAgIC AgICAgICAgICAgDQogICAgICAgICAgICAgICAgICAgICAgICAgICAgICAgICAgICAgICAgICAgICAgIC AgICAgICAgICAgICAgICAgICAgICAgICAgICAgICAgICAgICAgICAgICAgICAgICAgICAgDQogICAgIC AgICAgICAgICAgICAgICAgICAgICAgICAgICAgICAg ICAgICAgICAgICAgICAgICAgICAgICAgICAgICAgICAgICAgICAgICAgICAgICAgICAgICAgICAgICAg ICAgDQogICAgICAgICAgICAgICAgICAgICAgICAgICAgICAgICAgICAgICAgICAgICAgICAgICAgICAg ICAgICAgICAgICAgICAgICAgICAgICAgICAgICAgIC SqMLMdQVIrAFJuBTVhWCa8K2lwAINfSKSuIE7qTIy0Bb4+PCgGRyElWTH7vhMctI0OFV8ak6TqBRdqMG Hxi4HjXFt1OA1JAZLiBErtSZ5NDYdrst4LVMUvUKKriHJIc5doKrQfAZL6DUWfYeidMD8PTLGiQ0omws BbIDUgMCBSIDcgMCBSIDkgMCBSIDExIDAgUiAxMyAw QATrKTZlGIMOIOU4ATDlIeZhALKmLNZuYmYxNRZPQOOeYRVqTnSmLZEyUCYwCE3XFTLiW862mhRrZKTV Cj4+KVjhbpJzFvmZPcTqQAIrc7TkFXk5VP2PCSGuSmrnx9MhATYqBXRAINnmZZ8OKZZ8PDZ1YMVpCt6Z TVUtF043btDzDT4ZCa3ZXeWbMX7oto1UPOHlVOZiRd bODtg7ATuuOE4JaHKoELhZjw5nokHrkmMLx8KfkfXujSLRqPKgc2QnUJJAXTMelOQhLJIDLBObzDUoYU 89AiVuRlGlUXr5XFIkRL3gPSjwTA2DOUP9VBomDZOwQFTwT6oWDgZkNRJvQtKncBkgRE3WDmAqO3Fnfi RnyJP8YlEvIKTWXc9+CJutcgQsOkkHZvM4EUUog6Ab VQd8UW3GYEOtCZlwTB9PABWvoC5nLZenKZ3HFuA8IFZzEXHFMmTqW31rwVQeKOg1Y2ZzDmAyQLHqPtgv ZXMgPDwvTmFtZXMgWyBdDQogID4+ID4+LSumCO7OORsxepFwZNNcNp0ZGJOeUDHqQJ9aACZsXEVoN4T2 cRebXZLPHmNhN0dictufME2pJBUsB734sRdaiwEwNO SuGGPgUf0YMXFeHCO5TSCtnDZnXJFlUAOJDZreHC1KaHZaCOP0zB6uBFadGYGvTNWrS9eRJqEuxGyoZV 51bGwgbnVsbCBdDQo+Vs9FHM6yn0IoSEl4xxWcBIonTKK4ALqfWVHaHNQjBWYyJUU2IJK7AQSPSjIkUI BhUWDvTGltBCZbDWTmcj9OOWXcSTS5FnXgEODkYXKe WBSyZYrxLCYwWKn5VqlqWOPaIJFlQC0CDgHzZISpXQPiHMgpFOWwTLGlff0XVKFaITJlZUDzQTVzDKKa FOItRKfdUAYvRDC4NKO8LZFmASKrLK5NDgHzZSVgSEydIYImAYVaYUTszp8WTJUiBHLgOWWbOORzWEEf GOFtMEdeQFHsEQBhNVm4OPQuGQWaCD4PKvJgNYPbSG V8MRFgRCDaQIXbxq9HQQHkFCUbUwo1RWOjJPFpBQGuEApjFPFyZLT6SRl9XRBqOZTrDI4SWbHpXSDmCG LkRIibSMGoKFTihf5TWFYnATJuWbK3GwZeGNUePOJnNBqcZCXoWJN0GYT6TOKsRVQjRB4RHaBnZQIlZG ehNyOzBJIfJJXguv2REOHlREYjPTJjCnSpULLtMUOm XLlwPLBqXKOzJoM6IPZnSMHwNT4YPbQgSCDpFwH4EqWcEZKlBUYwov6CQXHnSTBcKrfgTeQfEAMiJYZe OGbkEXDzRIQ4OmA7ANToYHYhSA5ZHdOfWRPlLqT6EzQlRKGiKXTtkg9YDNIcTCUiAGq4KQGkSLOpMCLp PKvxBZDvBWTpBHLgKSWzABInQV6URcMpJLNiEdI9Ey RcCHLwKZLcjx9MHKDeJMGtYnJ9NSTiXKEcNWGiYQbhQKJpZQJ5MVNpEZIpABWqDZ7KOiEtQFRwYzMsKw stPDZiHCIznz2KYCLzWGWcEVTtZFUzXOReAEWuNCsuLKIvXLL9BZg7HGDlUIGnLY0DWwVsWEEeDfK4PM JcCWChDLCxub2FBGFxEVIhGVb6YBTrTDDcLKUgKXwq PXExSDK9HgN2YEGvQWYaPW4KYcDyKVKmQkxqArAxBNBoYSXpmv7CGDIfBCP7NoX4FYTrGSNdSPKeAKax QQWfKPQ5WcQ5DABkQOMsXI9RFvFtBDBmBhd8OAPqGFRwSYXhtg5ZPGFwSMA4PCNwIBClMPMhXVRqBQqx KWKrRMH3AiT5NULtLXBaFO0UStKfYCHhKsn0ZEUbAD TwWJSqrr7MHEVuNHL4XCI8UqCtJMXoIFWdXZijNQCjMEr1TRH7QSPoNCIaJS2AIwWwVIWrGzDmKlBqWM CkICKdua1CPPLrWCR5PFHyYrQwLNAnHZUoUKcqHMKuPBv2ZFQwJJOmBCTaFV0LHbJtLNRyHkZ3TQUnQZ TySKTucg7SWPPoZMZ3ZpXfGBJqSEJpQPAlMPelHYOk CLn8FBi0TPAkKDRzMT9XBwZvNEMvJwiaEvYdXIXwFFPoae6ADMQrJTG5MxTfIAYrLQVjWEDyGEktDSDn HGk6KPg9VPLzRVOyBU4YMlYhIJVtExc2XMCdBPNhIMQatb0LEEOtSMH7HCS5UGVtFHTwCNEbXKaqQHLz AWu9MEYlHISgQCDrIK3EQfOcXKNeMmm5DEVkOHAqMQ Zlar9NaANctKlhrf0PWAmRTn3TfWvaNMW2KIjoGa7xeDQ9FSRvPJTUMt2AkzPgYTMnZAHPJNpcAXYkBH LoLdAaQmc2Snl1EUGrIHC6REvoPRDdTBTgRmpvSvE9SwI4GEX4Z0DfHsiaYAmaLRTtBPT7XzZeHsFeCX C3LKO8Wzk+HD0pTFm+Bo6Ov7McgdY8vwQfGMz5WWrrRC0JCQZSU3TCNa== ID Date Data Source [id number] 12/16/2020 08:44:47 AM EDT [facility] Name Value Range Interpretation Code Description Data Kayley rce(s) Supporting Document(s) Leukocytes [#/volume] in Blood by Automated count 4.5 10*3/uL 4-10 [facility] Erythrocytes [#/volume] in Blood by Automated count 3.79 10*6/uL 4.6- 6.1 L [facility] Hemoglobin [Mass/volume] in Blood 11.7 g/dL 13.5-18 L [facility] Hematocrit [Volume Fraction] of Blood by Automated count 34.4 % 4 1-53 L [facility] Erythrocyte mean corpuscular volume [Entitic volume] by Auto mated count 90.7 fL 80-96 [facility] Erythrocyte mean corpuscular hemoglobin [Entitic mass] by Automated count 30.8 pg 27-33 [facility] Erythrocyte mean corpuscular hemoglobin concentration [Mass/volume] by Automated count 34.0 g/dL 32.0-36.0 [facility] width [Ratio] by Automated count 14.0 % 11.5-14.5 [facility] Platelets [#/volume] in Blood by Automated count 247 10*3/uL 150-400 [facility] Differential cell count method - Blood [facility] Neutrophils/100 leukocytes in Blood by Automated count 59 % [facility] Lymphocytes/100 leukocytes in Blood by Automated count 25 % [facility] Monocytes/100 leukocytes in Blood by Automated count 14 % [facility] Eosinophils/100 leukocytes in Blood by Automated count 1 % [facility] Basophils/100 leukocytes in Blood by Automated count 1 % [facility] Neutrophils [#/volume] in Blood by Automated count 2.62 10*3/uL 1.8-7 .0 [facility] Lymphocytes [#/volume] in Blood by Automated count 1.14 10*3/uL 1.2-4 .0 L [facility] Monocytes [#/volume] in Blood by Automated count 0.62 10*3/uL 0-0.8 [facility] Eosinophils [#/volume] in Blood by Automated count 0.06 10*3/uL 0-0.5 [facility] Basophils [#/volume] in Blood by Automated count 0.04 10*3/uL 0-0.2 [facility] Nucleated erythrocytes/100 leukocytes [Ratio] in Blood by Automated count 0 /100{WBCs} 0-0 [facility] ID Date Data Source [id number] 12/16/2020 09:14:[address] [facility] Name Value Range Interpretation Code Description Data Kayley rce(s) Supporting Document(s) Prothrombin time (PT) 13.0 s 11.6-14.0 [facility] INR in Platelet poor plasma by Coagulation assay 1.02 [facility] Routine intensity oral anticoagulation I NR is typically 2.0-3.0. Target INR must be clinically individualized. ID Date Data Source [id number] 12/16/2020 09:17:[address] [facility] Name Value Range Interpretation Code Description Data Kayley rce(s) Supporting Document(s) Albumin [Mass/volume] in Serum or Plasma by Bromocresol green (BCG) dye binding method 4.6 g/dL 3.5-5.2 [facility] Bil[facility].total [Mass/volume] in Serum or Plasma 0.5 mg/dL <1.2 [facility] Calcium [Mass/volume] in Serum or Plasma 9.1 mg/dL 8.8-10.2 [facility] Chloride [Moles/volume] in Serum or Plasma 90 mmol/L 98-107 L [facility] Creatinine [Mass/volume] in Serum or Plasma 0.89 mg/dL 0.70-1.20 [facility] Glucose [Mass/volume] in Serum or Plasma 138 mg/dL 70-140 [facility] Alkaline phosphatase [Enzymatic activity/volume] in Serum or Plasma 80 U/L 40-129 [facility] Potassium [Moles/volume] in Serum or Plasma 5.0 mmol/L 3.4-5.1 [facility] Protein [Mass/volume] in Serum or Plasma 6.9 g/dL 6.4-8.3 [facility] Sodium [Moles/volume] in Serum or Plasma 126 mmol/L 136-145 L [facility] Aspartate aminotransferase [Enzymatic activity/volume] in Serum or Plasma 27 U/L <40 [facility] Urea nitrogen [Mass/volume] in Serum or Plasma 15 mg/dL 8-23 [facility] Osmolality of Serum or Plasma by calculation 264 mosm/kg 275-300 L [facility] Creatinine/Urea nitrogen [Mass Ratio] in Serum or Plasma 16 [facility] Bicarbonate [Moles/volume] in Serum 25 mmol/L 22-29 [facility] Alanine aminotransferase [Enzymatic activity/volume] in Seru m or Plasma 20 U/L <41 [facility] Anion gap 3 in Serum or Plasma 11 mmol/L 8-15 [facility] Glomerular filtration rate/1.73 sq M pre dicted among non-blacks [Volume Rate/Area] in Serum or Plasma by Creatinine-based formula (MDRD) 86 mL/min/1.73m2 >60 [facility] Glomerular filtration rate/1.73 sq M pre dicted among blacks [Volume Rate/Area] in Serum or Plasma by Creatinine-based formula (MDRD) >60 [facility] ID Date Data Source [id number] 12/09/2020 02:15:00 PM EDT [facility] ([facility], ) Name Value Range Interpretation Code Description Data Kayley rce(s) Supporting Document(s) Gram Stain Laboratory test result Normal (applies to non-n umeric results) [facility] ([facility], ) NO CELLS SEEN NO ORGANISMS SEEN Nasal And Sinus Culture Laboratory test result N ormal (applies to non-numeric results) [facility] ([facility], ) <content>FULL REPORT IN LAB NOTES (eCW a nd [facility]).</content>
<content>NO NORMAL TIIGST ISOLATED</content>
<content></content>
<content>ORGANISM 1: STENOTROPHOMONAS MALTOPHILIA</content>
<content></content>
<content>QUANTITY OF GROWTH MODERATE</content>
<content></content>
<content></content>
<content> ORGANISM 1: STENOTROPHOMONAS MALTOPHILIA</content>
<content></content>
<content>STENOTROPHOMONAS MALTOPHILIA: REACTION</content>
<content>TRIMETHOPRIM/SULFAMETHOXAZOLE IV 160mg TMP & 800mg SMXq6h <=20 S</content>
<content>TRIMETHOPRIM/SULFAMETHOXAZOLE PO Bactrim DS Bid <=20 S</content>
<content>LEVOFLOXACIN IV 500mg qd 1 S</content>
<content>LEVOFLOXACIN PO 250mg qd 1 S</content>
<content>LEVOFLOXACIN PO 500mg qd 1 S</content>
<content></content> ID Date Data Source [id number] 12/09/2020 02:15:00 PM EDT [facility] Name Value Range Interpretation Code Description Data Kayley rce(s) Supporting Document(s) Bacteria identified in Nose by Aerobe culture Laboratory test re sult Normal (applies to non-numeric results) [facility] ([facility]) NO CELLS SEEN NO ORGANISMS SEEN ID Date Data Source [id number] 12/05/2020 09:21:09 AM EDT [facility] Name Value Range Interpretation Code Description Data Kayley rce(s) Supporting Document(s) Progress Note [facility] NZLSVz7bVwTZYiZp07/GTFtyEHEvm9InWLltVWf3CVnvVMYtL4XxYJC6tY9wRJS9XMbFCwTnZaGzTLD9 lbm [file] AgICAgICAgICAgICAgICAgICAgICAgICAgICAgICAg WDDpJEFcPZUgDPHlXFEtUXZdZCPnLGSyEX6TAYUmUPMdNOHpVGWnGLOaHHFrTAOaZPNgPHEhTXPrQWNq ICAgICAgICAgICAgICAgICAgICAgICAgICAgICAgICAgICAgICAgICAgICAgICAgICAgICAgICAgICAg MFLcOZNaXT7EYIBlJSZiCZPwJRPbFQBdHXPyZDMdRP AgICAgICAgICAgICAgICAgICAgICAgICAgICAgICAgICAgICAgICAgICAgICAgICAgICAgICAgICAgIC WbNNBvMWGaQLEiCOKdANKhKZ9BOVPwSSVyADUkKJByRKDoUSWjXWZdHJAeYTJoLREvELTlKUYhVNMrEY AgICAgICAgICAgICAgICAgICAgICAgICAgICAgICAg UDGpGAYtYJUrCWIvVLXvMRGtZEGoPFYySARhXY7MINUaJWOyPAXnUPDdBCDqNXPsAIAeAWBgXMGzHPKh ICAgICAgICAgICAgICAgICAgICAgICAgICAgICAgICAgICAgICAgICAgICAgICAgICAgICAgICAgICAg CZZdSCYpBKQoRS3SABRkVNNvHLIxLSAnZMZpENCbGM AgICAgICAgICAgICAgICAgICAgICAgICAgICAgICAgICAgICAgICAgICAgICAgICAgICAgICAgICAgIC LcPAJnPRSxWPHjGVDtQFRjULCfUG3FLBSoFUQjSUMdLRPdSONpZJRqFUMcOAUgMHZbJMUlNZSjYUHyYB AgICAgICAgICAgICAgICAgICAgICAgICAgICAgICAg EHDrORFqYCMfIRYrXABaKTKdEBJxVZQzQILoJJHgLJ9TGMFfXNZmHVOeRGSeAVQjGBXuCEMyBMMhGXCc ICAgICAgICAgICAgICAgICAgICAgICAgICAgICAgICAgICAgICAgICAgICAgICAgICAgICAgICAgICAg HKEjFBJdQKLuVUTrEO2ZPDWvBXIgWKFoGPIoPBKjAM AgICAgICAgICAgICAgICAgICAgICAgICAgICAgICAgICAgICAgICAgICAgICAgICAgICAgICAgICAgIC ZeQVChZPNuKQTlIHWgRQOwMIRzWSToRE3ATOUcQWEnOTRkOCYfTTKoZMAqWDWzMTYvFLHvTGWjSSHrPJ AgICAgICAgICAgICAgICAgICAgICAgICAgICAgICAg LBJaIZLuPFUjIWZmPMWxWCRvGWOvTILePUFdLYNwCPQqSR3WNQ54hXVka9G4QNVhTP5hxvs/Ca7ATFsm ayPndFObOQ2JJfIpUT2sjn1ZNhNvKS1rud2OSUiUTcSsF7Z4fUVvVVCzEKMUWxLtW68mLAdgRk45TBkq BIAsLrNmTTi7Yt5CSjVmZ9dmNCQyUgE0ZMFiPcK5KA WjTzF4PRFgSkFeVLTgRSKvKXRdUBTDOKK8SQDvLdBwZUzoKK1Hb6WqoKH6BXb+Iw1AOW6xw0DsANr7ST RcWA4meh8VTRyBPiFvO0SexuQ5IMQiOGKmHc5HOZRaPQZkfBW7XFDmHUMLNxUtL0XjlK34VQZRLd8+DQ kdjqMzDsaTPnDuAVZbs4ZxYJw8TE4MNPGzBEk2dGTe MECcF5Rqa9QqAr18TRXsShfxUrhis5kuoxAvAVPrzZjcDIqfQARuZLHkAO9eMy6zKPXyBUR2RfKmWTZS UJ3EFVZlTJViyFUyQCEvWOTFGJ8YVMjfMFS2JFTvckOjwCUeNCcyRE4CSKOrgeRlPKWoDMBTYDs+Pg0K QS8zk4AsVTl2WkCkJA3qws3NUZdHJrLhU2U7qSMvX9 X0CCytQs3BMTOqZHTlMvypRRSZHOriCE8TBW8hjeA6LX4XeYVaLNYfITOjgXBeXTm4D20wyLBgTStgEA 0KICA+Pallavi+Pm4NQNZaFKDxRUYfIkVnEGPZNpBnC4LeV7SWc9CbR1YzZV59sKladzMvBEjgIQ4ZJK2tFU NtFEPKNU3KcTTijI8lbxL7NEFbSDDPGvNgJ90dfEFt CJDxHFO6JGOsAz2LGRFjS6IahrWpdKuohiUcBXOtRSGXKP4JVYckjeTogTIpkQlsVZ31xNhjDO1OPj0Q FvLlRH2ewo0YvGJzBw7CGYQ0Ja8NEFOiLGXgXJFdCWD0QRZgLuGmRXpdOMUcMKPyGHS7PEBsVUSdSX1V YkJlVFNaUhU6WOGiGQVnWECtca3RISCmFEK7IfiiEI SkEHSrXWDaMNjmUHUnKXSmQLY3MMJlNJPoTG7GJmVtHWQdHCCmNUdbDASvHETkxr0EZYGoPSKpQLO8Mn QzXXLfEAPyNBufSUVoXWJ9SCz9GJWtKKUlOX3FCtSiNYWxSKybJQShYDSzWHNdou2GGXOmMSJsSLH4Az ClOIJdRKUcRRovALDwQGNpAgVnLHHnOMDqSX3AOcNl JJPcZEDqWIZjATGiSVMowt0MACIfLCQnYkO1WpTzEUWiMRBgIIpwXISkSZS1VTYjORBjKJBwQA3HTpVg VMJsHMgoSZhrXNMdITRlsj0MPAReRVLvVTkwWNZdURIdEOZfZSdgOCNqUIZ9UXU7EBNoXNQbLX8NEpDn FNJnHQv5GDGsUTEcQBJmya1CAWNrTDElCAQ0BxMuRC IbPITmKKacOJZuBPZvIxx0QSStIUHbMK3BYfBhMXYmPgEkSuTzTQTrMZQpad0SGZNdEAApDRQvIqPkJN OoJPHsISmjHTMxFKSxIdC7RFBuAYYcDJ1NYnBkUMMmEFG8YRJyATQqOWIjem8MCUUhVAZ1JmKzCuWwIF TxIJTpVWkfUYUdYAHgHzRaYCKpMDUyFD4NJcDyMYSp CBBwHSFwJZRlDLAlcv8HHZDnYUM9LhSpKYYzUEGrAVGzCSdfDQOxUTC0LSwdEISvPRUbSQ1NTgItYCAj SCG3ImKvZFCiRYWwqg7JNZBhVLQ0PBlaSNOzVOTgTKQoIWdmKESnKES1SdqoOOKwNIWzZW5GFaQsSTZs DsQmMRDqUZJkBUEvxj9TNZVxSNB2ODZxMqMsBOXuDY ZsAXgdPEMjBQYcMKCtQAZsTBQyKL5VYrMeFPGuIwL3MFgoPJFgBUNago0DYXHkFHC9DBA8MuVaRJLzJG KpVYcfYHTgIKQnWcPuGZBgAJBlDT4BKyJwANUwKmI5QMpcWYFfYSNfeh0SQFXuLOD4EfT8SCMfELOnDF HdHYcgIBWqJVNaFXF7RYMbARFzNO3NFeXrPHFpNaE7 UINzAIZeDDQuek6RABFhMHV6NUQ4HGFaVFFkTCUmKCn9etPttWJkCWn0LQ7UC4PkasGwSBZAOw0Yg328 AYIjLVWxMs2IZ0igZx7cKDJqIBMNPr1GZWn9MfJiRRT0CUOzFpl8M6DeCBq8HxE7CwkaOWS1LcK9LNL+ ZUqhJnHiUgpgOGQ5MXspUjIcDTR6Pqz9E9GiIGn2TL d8OB7nQJOFDx3+RMstjAVwqMkkSLVQAoS8NoX2OLpgWDVROb0W ID Date Data Source [id number] 12/04/2020 11:20:11 AM EDT [facility] Name Value Range Interpretation Code Description Data Kayley rce(s) Supporting Document(s) Progress Note [facility] QQTSTs9sYrJWVrCl90/JTFoiWBKmy6MrIJneYMa7ZBomKPFlN3NmARV7zO6iSYG5KJyUCkItDhHfXJBl lbm [file] YvONNkOgM6NCufLtA+HN5jWOn+Hh2Ix3JituZ4emSiNAwyYIH1PU4LVJUTD2LCKm== ID Date Data Source [id number] 12/08/2020 10:14:00 AM EDT [facility] Hematopathology Report See Addendum Prem wNthao: OLSON, ED C. Number: [id number] Date: 12/04/2020 10:30Received Date: 12/04/2020 11:40Physician(s): ISAI [...] rendered thefinal diagnosis. Addendum 12/12/2020 Cytogenetics report [id number] shows that chromosome analysis revealed anormal male [...] Signed Out12/05/2020 InterpretationPERIPHERAL BLOOD: CBC performed at [facility] ([id number]),[address] [place] [address] on 12/04/20.WBC 4.4 K/uLRBC *3.95 M/uLHgb *12.3 [...] % Neutrophils 0.5 % Eosinophils 1.5 % Cykaajtci07.0 % Lymphocytes 8.0 % Monocytes --------100.0 % Qualitative leukocytic changes: Some large granular lymphocytes arenoted. BONE MARROW ASPIRATE: Cellularity appears normal as judged by particles on aspirate films. Differential Count (500 cells):36.8 % Erythroid Precursors 0.6 % Blasts 2.2 % Promyelocytes 7.2 % N. Fxyeaqovob58.8 % N. Metamyelocytes and Band Forms21.0 % Zachary trophils 2.8 % Eosinophils and Precursors 0.2 % Basophils and Precursors 4.6 % Lymphocytes 0.4 % Monocytes 1.4 % Plasma Cells --------100.0 % Megakaryocytes appear normal with normal morphology.Erythroid maturation appears normoblastic.Myeloid maturation appears svp of digital and complete.Macrophages are unremarkable. MARROW BIOPSY: Biopsy [...] Date Ordered:12/04/2020 Status: Signed Out12/05/2020 InterpretationLymphoid Panel: [facility] HP21 [id number] following markers were assayed: CD45 (gate), CD2, CD3, CD4, CD5, CD7,CD8, CD10, CD19, CD20,CD33, CD34, CD38, CD56, CD57, CD64, CD117, CD123, HLA- DR, Broseley, andLambda.# events: [id number]: 99%Flow Cytometry Differential (CD45/SSC)Lymphocyte Price: 13%CD45 dim Price: 1%Monocyte Price: 1%Granulocyte Price: 75%Nucleated/Erythroid Price: 6%The lymphocyte gate showsB-cells (CD19): 3%T-cells (CD3): 78%NK-cells (CD3-/CD56+): 17%Broseley/Lambda Ratio: 2.5CD4/CD8 Ratio: 2.0Results: (expressed as % of lymphocyte gate)T-cell Markers: CD2 = 87, CD3 = 78, CD3/CD4 = 46, CD3/CD8 = 22, CD5 = 78,CD7 = 90, CD3/57 = 20B-cell markers: Broseley = 2, Lambda = 1, CD19 = 3, CD20 = 7, CD19/10 = 1,CD19/CD5 = 0,CD38/CD20 = 5Light chain as % of B-Cells: CD19/Broseley = 53, CD19/Lambda = 20CD19/CD5/Broseley = 1, CD19/CD5/Lambda = 0CD19/CD10/Broseley = 9, CD19/CD10/Lambda = 4NK cell Markers: CD56 = 29, CD57 = 29Other Markers: CD10 = 1, CD38 = 72Results: (expressed as % of CD45 dim gate)T-cell Markers: CD2 = 1, CD3 = 1, CD3/CD4 = 1, CD3/CD8 = 0, CD5 = 0, CD7 =4, CD3/57 = 0B-cell markers: Broseley = 1, Lambda = 0, CD19 = 16, CD20 = 4, CD19/10 = 14,CD19/CD5 = 0,CD38/CD20 = 4Light chain as % of B-Cells: CD19/Broseley = 3, CD19/Lambda = 3CD19/CD10/Broseley = 0, CD19/CD10/Lambda = 0NK cell Markers: [...] were developed and theirperformance characteristics determined by [facility] Pathology department.They have not been cleared or approved by the US Food and DrugAdministration. The FDA has determined that such clearance or approval isnot necessary. Name Value Range Interpretation Code Description Data Kayley rce(s) Supporting Document(s) ID Date Data Source [id number] 12/04/2020 10:29:[address] [facility] Name Value Range Interpretation Code Description Data Kayley rce(s) Supporting Document(s) Leukocytes [#/volume] in Blood by Automated count 4.4 10*3/uL 4-10 [facility] Erythrocytes [#/volume] in Blood by Automated count 3.95 10*6/uL 4.6- 6.1 L [facility] Hemoglobin [Mass/volume] in Blood 12.3 g/dL 13.5-18 L [facility] Hematocrit [Volume Fraction] of Blood by Automated count 35.4 % 4 1-53 L [facility] Erythrocyte mean corpuscular volume [Entitic volume] by Auto mated count 89.6 fL 80-96 [facility] Erythrocyte mean corpuscular hemoglobin [Entitic mass] by Automated count 31.1 pg 27-33 [facility] Erythrocyte mean corpuscular hemoglobin concentration [Mass/volume] by Automated count 34.7 g/dL 32.0-36.0 [facility] Erythrocyte distribution width [Ratio] by Automated count 14.1 % 11.5-14.5 [facility] Platelets [#/volume] in Blood by Automated count 258 10*3/uL 150-400 [facility] Differential cell count method - Blood [facility] Neutrophils/100 leukocytes in Blood by Automated count 65 % [facility] Lymphocytes/100 leukocytes in Blood by Automated count 20 % [facility] Monocytes/100 leukocytes in Blood by Automated count 13 % [facility] Eosinophils/100 leukocytes in Blood by Automated count 1 % [facility] Basophils/100 leukocytes in Blood by Automated count 1 % [facility] Neutrophils [#/volume] in Blood by Automated count 2.89 10*3/uL 1.8-7 .0 [facility] Lymphocytes [#/volume] in Blood by Automated count 0.90 10*3/uL 1.2-4 .0 L [facility] Monocytes [#/volume] in Blood by Automated count 0.58 10*3/uL 0-0.8 [facility] Eosinophils [#/volume] in Blood by Automated count 0.03 10*3/uL 0-0.5 [facility] Basophils [#/volume] in Blood by Automated count 0.03 10*3/uL 0-0.2 [facility] Nucleated erythrocytes/100 leukocytes [Ratio] in Blood by Automated count 0 /100{WBCs} 0-0 [facility] ID Date Data Source [id number] 12/04/2020 11:04:[address] [facility] Name Value Range Interpretation Code Description Data Kayley rce(s) Supporting Document(s) Albumin [Mass/volume] in Serum or Plasma by Bromocresol green (BCG) dye binding method 4.7 g/dL 3.5-5.2 [facility] Bilirubin.total [Mass/volume] in Serum or Plasma 0.5 mg/dL <1.2 [facility] Calcium [Mass/volume] in Serum or Plasma 9.2 mg/dL 8.8-10.2 [facility] Chloride [Moles/volume] in Serum or Plasma 93 mmol/L 98-107 L [facility] Creatinine [Mass/volume] in Serum or Plasma 0.86 mg/dL 0.70-1.20 [facility] Glucose [Mass/volume] in Serum or Plasma 139 mg/dL 70-140 [facility] Alkaline phosphatase [Enzymatic activity/volume] in Serum or Plasma 80 U/L 40-129 [facility] Potassium [Moles/volume] in Serum or Plasma 4.7 mmol/L 3.4-5.1 [facility] Protein [Mass/volume] in Serum or Plasma 7.4 g/dL 6.4-8.3 [facility] Sodium [Moles/volume] in Serum or Plasma 130 mmol/L 136-145 L [facility] Aspartate aminotransferase [Enzymatic activity/volume] in Serum or Plasma 30 U/L <40 [facility] Urea nitrogen [Mass/volume] in Serum or Plasma 14 mg/dL 8-23 [facility] Osmolality of Serum or Plasma by calculation 273 mosm/kg 275-300 L [facility] Creatinine/Urea nitrogen [Mass Ratio] in Serum or Plasma 16 [facility] Bicarbonate [Moles/volume] in Serum 26 mmol/L 22-29 [facility] Alanine aminotransferase [Enzymatic activity/volume] in Seru m or Plasma 25 U/L <41 [facility] Anion gap 3 in Serum or Plasma 11 mmol/L 8-15 [facility] Glomerular filtration rate/1.73 sq M pre dicted among non-blacks [Volume Rate/Area] in Serum or Plasma by Creatinine-based formula (MDRD) 87 mL/min/1.73m2 >60 [facility] Glomerular filtration rate/1.73 sq M pre dicted among blacks [Volume Rate/Area] in Serum or Plasma by Creatinine-based formula (MDRD) >60 [facility] ID Date Data Source [id number] [facility]/04[facility]2020 [facility] Name Value Range Interpretation Code Description Data Kayley rce(s) Supporting Document(s) Urate [Mass/volume] in Serum or Plasma 4.6 mg/dl 3.4-7.0 [facility] ID Date Data Source [id number] 12/04/2020 12:09:[address] [facility] Name Value Range Interpretation Code Description Data Kayley rce(s) Supporting Document(s) Lactate dehydrogenase [Enzymatic activit y/volume] in Serum or Plasma by Lactate to pyruvate reaction 222 U/L 122-225 [facility] ID Date Data Source [id number] 12/09/2020 09:06:[address] [facility] Name Value Range Interpretation Code Description Data Kayley rce(s) Supporting Document(s) Tien Ryan virus DNA [#/volume] (viral load) in Serum or Plasma by Probe and target amplification method 148 copies/mL [facility] (NOTE)The quantitative range of this ass ay is 100 to 1 million copies/mL.This test was developed and its performance characteristicsdetermined by [employer]. It has not been cleared or approved by theFood and Drug Administration. Tien Ryan virus DNA [Log #/volume] (v iral load) in Unspecified specimen by Probe and target amplification method 2.170 log10 copy/mL [facility] (NOTE)Performed At: [facility] [id number] [place], [place] [id number] Araujo MD Ph:[phone] ID Date Data Source [id number] 12/04/2020 12:30:[address] [facility] Name Value Range Interpretation Code Description Data Kayley rce(s) Supporting Document(s) Hepatitis A virus IgM Ab [Presence] in Serum or Plasma by Im munoassay Non Reactive [facility] No acute infection, susceptible to infec tion. Hepatitis B virus core IgM Ab [Presence] in Serum or Plasma by Immunoassay Non Reactive [facility] IgM antibodies to HBc were not detected, does not exclude the possibility of exposure to HBV. Hepatitis C virus Ab [Presence] in Serum or Plasma by Immuno assay Non Reactive [facility] No serological evidence of active infect ion. If recent exposure is suspected, test for HCV RNA. Hepatitis B virus surface Ag [Presence] in Serum or Plasma b y Immunoassay Non Reactive [facility] No active or previous infection. Suscept ible to infection. ID Date Data Source [id number] 12/09/2020 04:04:00 PM EDT [facility] Molecular Diagnostics ReportName: ED BROWNMRN: [id number] Number: [id number] Date: 12/04/2020 00:00Received Date: 12/05/2020 14:31Physician(s): ISAI BLAIR MBBS MADHIRA, BHASKARA, MBBSCopy To:FIDE VU MDSpecimen(s) ReceivedA: Bone Marrow - T-cell - [id number] OF STUDY: T-cell Receptor Gamma Chain Gene - PCR AssaySPECIMEN TYPE: Bone Marrow (#[id number])RESULTS: Positive Family I & III / J [...] Gamma Chain gene (van Dongen et al. Kviwtkog72:2564-5216, 2003). A positive result is expected when [...] validated and authorized for clinical useby the [facility] Dept. of Health ([facility]).rw/jsElectronically Signed By Ez Mejia M.D. Attending Pathologist 12/09/2020 16:04:31 Name Value Range Interpretation Code Description Data Kayley rce(s) Supporting Document(s) ID Date Data Source [id number] 12/11/2020 05:55:[address] [facility] Cytogenetics ReportName: DELBERT OLSONMRN: [id number] Number: [id number] Date: 12/04/2020 00:00Received Date: 12/04/2020 11:54Physician(s): ISAI BLAIR MBBS MADHIRA, BHASKARA, MBBSSpecimemarylu(s) ReceivedA: Bone Marrow - Karyotype analysis and FISHClinical Imnvqqb01-ywfi-efk patient with NK T-cell lymphoma.TEST REQUESTED/PERFORMED: Chromosome analysis and fluorescence in situhybridization (FISH) InterpretationChromosome analysis revealed a normal male chromosome complement in allcells analyzed. As no chromosomal abnormalities were detected, the FISHstudy was canceled by Dr. Suresh Vu. Please correlate with the concurrentHematopathology report, [id number]. Electronically Signed By Josr Manley, PhD Attending Pathologist 12/11/2020 17:55:36Results and ISCN (2016) NomenclatureChromosome Ewuyopmx05,XY[20] DescriptionA normal male chromosome complement was observed [...] rce(s) Supporting Document(s) ID Date Data Source [id number] 11/11/2020 11:14:00 AM [facility]T [facility] Name Value Range Interpretation Code Description Data Kayley rce(s) Supporting Document(s) Bacteria identified in Nose by Aerobe culture Laboratory test re sult Normal (applies to non-numeric results) [facility] ([facility]) FULL REPORT IN LAB NOTES ([facility] and [facility] ). 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 Please see complete report from [facility] hematopathology department [id number], scanned in EMR under pathology module. 11/20/20201835 [...] process/lymphoma, the case will be sent to [facility] hematopathology department for consultation and [...] La MD 11/14/2020925 ID Date Data Source [id number] 11/11/2020 10:00:00 AM EDT [facility] ([facility], ) Name Value Range Interpretation Code Description Data Kayley rce(s) Supporting Document(s) Surgical pathology study [facility] FINAL DIAGNOSIS Left nasal mucosa, biopsy: Collections [...] process/lymphoma, the case will be sent to [facility] hematopathology department for consultation and [...] La MD 11/14/2020908 ID Date Data Source [id number] 11/20/2020 04:47:00 PM EDT [facility] Hematopathology Report See Addendum Prem Briggs: ED OLSONMRN: [id number] Number: [id number] Date: 11/11/2020 00:00Received Date: 11/14/2020 12:54Physician(s): DANIEL LA MD HAGHIR, SHAHANDEH F,MDCopy To:[facility]ITALpecimen(s) ReceivedA: Slides received for consultation, KB; RECEIVED 4 SLIDES AND 1 BLOCK OFLEFT NASAL MUCOSA BIOPSY LABELED [id number] [facility] LA DiagnosisA. Left nose, core biopsy: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, nasal typeSsavannahnellthanh Michel M.D.;Resident PathologistElectronically Signed By Nesha Pedraza MD AttendingPathologist 11/20/2020 16:47:04The attending pathologist named above attests that he/she has personallyreviewed the relevant preparation(s) for the specimen(s) and rendered thefinal diagnosis. Addendum 12/17/2020 T-cell PCR is negative for clonal T cells ([id number]). The diagnosisremains unchanged. Addendum Electronically Signed By: [...] were developed and theirperformance characteristics determined by [facility] Pathology department.They have not been cleared or approved by the US Food and DrugAdministration. The FDA has determined that such clearance or approval isnot necessary. Name Value Range Interpretation Code Description Data Kayley rce(s) Supporting Document(s) ID Date Data Source [id number] 12/16/2020 03:31:[address] [facility] Molecular Diagnostics ReportName: ED BROWNMRN: [id number] Number: [id number] Date: 11/11/2020 00:00Received Date: 12/11/2020 13:22Physician(s): DANIEL LA,DANIEL GREER,MDCopy To:JESSICA FUENTES MDSpecimen(s) ReceivedA: Formalin Fixed Tissue - Left Nasal Mucosa Biopsy - T-cell - [id number] of Study: T-cell Receptor Gamma Chain PCR Assay SPECIMEN TYPE: Formalin Fixed Tissue - left nasal mucosa biopsy(#[id number]), Block # [id number]: Negative Family I & III / J [...] Gamma Chaingene (van Dongen et al. Leukemia 17:[id number], 2003). A quality controlamplification showed DNA of [...] and authorized for clinical use by the [facility] Dept.of Health ([facility]).rw/jsElectronically Signed By Ez Mejia M.D. Attending Pathologist 12/16/2020 15:31:09 Name Value Range Interpretation Code Description Data Kayley rce(s) Supporting Document(s) ID Date Data Source [id number] 09/22/2020 02:14:00 PM EDT [facility] ([facility], ) Name Value Range Interpretation Code Description Data Kayley rce(s) Supporting Document(s) Bacteria identified in Nose by Aerobe culture Laboratory test re sult Normal (applies to non-numeric results) [facility] ([facility], ) <content>FULL REPORT IN LAB [...] FOR ESBL</content>
<content></content> ID Date Data Source [id number] 09/16/2020 08:19:49 AM EDT [facility] Name Value Range Interpretation Code Description Data Kayley rce(s) Supporting Document(s) &PDF [facility] UPFTPt6yVfTVJzXn38/NFPjmNUSoa7WrEBzlDBy0KVgiIIFtJ8GryFarEApQH3mKDjDhQ4MQJHcTNzNS vci [file] AgICAgICAgICAgICAgICAgICAgICAgICAgICAgICAgICAgICAgICAgICAgICAgICAgICAgICAgICAgIC AgICAgICAgICANCiAgICAgICAgICAgICAgICAgICAg ICAgICAgICAgICAgICAgICAgICAgICAgICAgICAgICAgICAgICAgICAgICAgICAgICAgICAgICAgICAg ICAgICAgICAgICAgICAgICAgICANCiAgICAgICAgICAgICAgICAgICAgICAgICAgICAgICAgICAgICAg ICAgICAgICAgICAgICAgICAgICAgICAgICAgICAgIC AgICAgICAgICAgICAgICAgICAgICAgICAgICAgICANCiAgICAgICAgICAgICAgICAgICAgICAgICAgIC AgICAgICAgICAgICAgICAgICAgICAgICAgICAgICAgICAgICAgICAgICAgICAgICAgICAgICAgICAgIC AgICAgICAgICAgICANCiAgICAgICAgICAgICAgICAg ICAgICAgICAgICAgICAgICAgICAgICAgICAgICAgICAgICAgICAgICAgICAgICAgICAgICAgICAgICAg ICAgICAgICAgICAgICAgICAgICAgICANCiAgICAgICAgICAgICAgICAgICAgICAgICAgICAgICAgICAg ICAgICAgICAgICAgICAgICAgICAgICAgICAgICAgIC AgICAgICAgICAgICAgICAgICAgICAgICAgICAgICAgICANCiAgICAgICAgICAgICAgICAgICAgICAgIC AgICAgICAgICAgICAgICAgICAgICAgICAgICAgICAgICAgICAgICAgICAgICAgICAgICAgICAgICAgIC AgICAgICAgICAgICAgICANCiAgICAgICAgICAgICAg ICAgICAgICAgICAgICAgICAgICAgICAgICAgICAgICAgICAgICAgICAgICAgICAgICAgICAgICAgICAg ICAgICAgICAgICAgICAgICAgICAgICAgICANCiAgICAgICAgICAgICAgICAgICAgICAgICAgICAgICAg ICAgICAgICAgICAgICAgICAgICAgICAgICAgICAgIC AgICAgICAgICAgICAgICAgICAgICAgICAgICAgICAgICAgICANCiAgICAgICAgICAgICAgICAgICAgIC AgICAgICAgICAgICAgICAgICAgICAgICAgICAgICAgICAgICAgICAgICAgICAgICAgICAgICAgICAgIC AgICAgICAgICAgICAgICAgICANCjw/jBXaH8fzzOMs vxO7J5csLp8YSu8ARA7ya7TfFSPbMWmlptSeBliHMrSiPTFsOivFUrs0NZknPD0GqTCkT9VyM6CrUKja WF9RJAYiGJLfzBSbZWAgXPQsZsN5DKJdRFycBL4MgLDcIGgyHFZqZGDsLrIiJVDjTS6NEQNfN280uoHd Rf5GSy1AToVbUI9oef8DQtolMMDdEssFYcr0XRhfZH 9DjDPlC1JzuTQcu3cCLkTkH4EKHDU6RRWyKu3VJSSoIiGhYQNeHBprDM8mWUMeAEMIoQgmcbT1JM0NBX 6nqvCiFB9KInPqBy6bXu3ORbTfO4ZrC3MeUPZgYWFWUFqkHB1HFAZlRGW7LXDrIpAoTVNOWnFuJ74nOV 0MT7Wje22rAuI3SYYtBqQgSRfaTD03wFdfbaYxdNEs yAeaSF8IIx3+VLvmmxTgAnyMBbazYQISBqPaEpgJQrIfIJFqNVQiEGBgTdK8HrPfLc9MCRLnWYSeUJKa VjRpSMZgXIMwCHzeMUXqCID6CJXhCVTrUQIkIT0GNqVjAATcVTT4LJtyKBUmHVYgeu4SFWMrTDDzLRI1 GhWfSDXpLMGrXDhwQSDeOHZfRZbaJECdLKQqCB4BIz WgCCGqUMGkItGtGLAbJWNfet0ASKGeONCrUnguOqRyNRRzLKVfCZjzZMXqHSH5DKY6RZGqEXUbTP5ZIh IcHYVwPOb1SmUtYGTaJQEoty1PZQFiYDNhSNA2PBWnRPGvQBYvZHwcUKFeVMN8OoHtKJYhAHKwDH8GLx WmZYBnHHCkYGEjMSYjUUSlts5PAMKeOCPxGLCxHbTn HEQsTPZlIWjvLXPzXTIzPzBnMCEqZOYtEK3MLfGnEHKfIKK0WMjpWKJpHDHjvs7XJEGcMFUyPEz0KNKl WREmPUZvBWshGDPbRAHbDER2BKJjWAIdNL5XDdJhOKLtQTDwNXTfPHJhCJKbti3GVSLkHALrYsUiUKBp SMTxUHAhKKuwBIOgUBScOsybSSXvAYZvHI2AVfQlXJ PiCXH6MMktIDWvWGTafz9WPMJpKXMvIOYzBEZtTXOrSPKfYCqdTVHiVXQ0GaM2SFCyKHGmOD9DFrRtEB NtYXN0ULSdZYGbQPZdwu6UEFZaFUZjADv6NlOpETTlBHTgMPbsGFQkMVO9OBGbAVHxRKOdES3BBcFoXA NxGSF9DBkrQSNeLZKteu8POYUwJFCkAmObYzLzZOXy CMIjGSz9ghOomMMyAQa7SV7GK9UsozCmJkzKKg4So747PZH3CBFlMn8GL5mpEz9rWNXrUTHBXq8DWSj3 V2H3BZG2NVNoDYMmUiZ1LwY1UlW5Nsh7IYUiYsGnFmR+XRdwMiUmDzy3FvO6PnQ7ECGaUWdcICd4KNrp N6GeDKJtQM4cHDVXEr2+GOfmxKOadEhoRSGDGnY2XridXZhzSMJVVr8L ID Date Data Source [id number] 07/18/2020 08:37:55 PM EDT [facility] Name Value Range Interpretation Code Description Data Kayley rce(s) Supporting Document(s) NT PRO BNP 181 pg/mL (0-125) H [facility] ID Date Data Source [id number] 07/18/2020 08:37:55 PM EDT [facility] Name Value Range Interpretation Code Description Data Kayley rce(s) Supporting Document(s) SODIUM 138 mmol/L (136-145) [facility] POTASSIUM 4.6 mmol/L (3.6-5.2) [facility] CHLORIDE 100 mmol/L (100-108) [facility] CO2 27 mmol/L (22-31) [facility] ANION GAP 11 mmol/L (7-16) [facility] UREA NITROGEN 12 mg/dL (7-24) [facility] CREATININE 0.82 mg/dL (0.80-1.30) [facility] BUN/CREAT RATIO 14.6 RATIO (10.0-20.0) [facility] GLUCOSE 101 mg/dL (70-99) H [facility] CALCIUM 9.2 mg/dL (8.4-10.2) [facility] GFR >60 ml/min/1.73m2 (>59) [facility] GFR ( AMER) >60 ml/min/1.73m2 (>59) [facility] GFR INTERPRETATION [facility] --NORMAL KIDNEY FUNCTION OR MILD DISEASE - GFR >OR= 60CHRONIC KIDNEY DISEASE - GFR 15 - 59RENAL FAILURE - GFR <15 Est. GFR calculation based on the MDRDstudy equation, which assumes a steadystate for creatinine. Est. GFR should notbe used for medication dosing. ID Date Data Source [id number] 07/18/2020 08:26:03 PM EDT [facility] Name Value Range Interpretation Code Description Data Kayley rce(s) Supporting Document(s) WBC 6.1 10*3/uL (4.1-11.0) [facility] [place] RBC 4.48 10*6/uL (4.60-6.10) L [facility] HGB 14.0 g/dL (13.5-18.0) [facility] HCT 42.0 % (41.0-53.0) [facility] MCV 93.7 fL (80.0-95.0) [facility] MCH 31.1 pg (27.0-32.0) [facility] MCHC 33.2 g/dL (32.0-36.0) [facility] RDW 13.6 % (10.5-14.5) [facility] PLT 262 10*3/uL (150-450) [facility] MPV 8.9 fL (7.1-10.7) [facility] ID Date Data Source [id number] 06/09/2020 01:09:00 PM EDT [facility] ([facility], ) Name Value Range Interpretation Code Description Data Kayley rce(s) Supporting Document(s) Surgical pathology study Laboratory test result [facility] ([facility], ) FINAL DIAGNOSIS A - Sinus [...] APTT 06/05/2020 12:00:00 AM EDT eCW1 ([facility]) Name Value Range Interpretation Code Description Data Kayley rce(s) Supporting Document(s) 13.2 12.5-14.3 eCW1 ([facility]) 0.99 eCW1 ([facility]) 26.8 24.2-38.5 eCW1 ([facility]) ID Date Data Source [id number] 06/05/2020 12:00:00 AM EDT eCW1 ([facility]) Name Value Range Interpretation Code Description Data Kayley rce(s) Supporting Document(s) Hemoglobin A1c/Hemoglobin.total in Blood 5.5 eCW1 ([facility]) ID Date Data Source Comprehensive Metabolic Profile (CMP) 06/05/2020 12:00:00 AM EDT eCW1 ([facility]) Name Value Range Interpretation Code Description Data Kayley rce(s) Supporting Document(s) 0.72 0.70-1.30 CREATININE FOR GFR eCW1 ([facility]) 106 70-100 GLUCOSE, FASTING eCW1 ([facility]) 13 7-18 BLOOD UREA NITROGEN eCW1 ([facility]) 138 136-145 SODIUM LEVEL eCW1 ([facility]) 101 98-107 CHLORIDE LEVEL eCW1 ([facility]) > 60.0 >49 GLOMERULAR FILTRATION RATE eCW 1 ([facility]) 4.5 3.5-5.1 POTASSIUM SERUM eCW1 ([facility]) 24 7-37 AST/SGOT eCW1 ([facility]) 37 12-78 ALT/SGPT eCW1 ([facility]) 9.2 8.8-10.2 CALCIUM LEVEL eCW1 ([facility]) 31 21-32 CARBON DIOXIDE LEVEL eCW1 ([facility]) 4.2 3.2-5.2 ALBUMIN eCW1 ([facility]) 0.7 0.2-1.0 BILIRUBIN,TOTAL eCW1 ([facility]) 7.6 6.4-8.2 TOTAL PROTEIN eCW1 ([facility]) 70 45-117 ALKALINE PHOSPHATASE eCW1 ([facility]) 1.2 ALBUMIN/GLOBULIN RATIO eCW1 ([facility]) ID Date Data Source CBC with Differential 06/05/2020 12:00:00 AM EDT eCW1 ([facility]) Name Value Range Interpretation Code Description Data Kayley rce(s) Supporting Document(s) 8.8 4.0-10.0 WHITE BLOOD COUNT eCW1 ([facility]) 4.58 4.30-6.10 RED BLOOD COUNT eCW1 ([facility]) 30.3 27.0-33.0 MEAN CORPUSCULAR HEMOGLOB IN eCW1 ([facility]) 92.4 80.0-96.0 MEAN CORPUSCULAR VOLUME e CW1 ([facility]) 42.3 42.0-52.0 HEMATOCRIT eCW1 ([facility]) 13.9 13.5-17.5 HEMOGLOBIN eCW1 ([facility]) 32.9 32.0-36.5 MEAN CORPUSCULAR HGB CONC eCW1 ([facility]) 291 150-450 PLATELET COUNT, AUTOMATED eCW1 ([facility]) 13.9 11.5-14.5 RED CELL DISTRIBUTION WID TH eCW1 ([facility]) 9.9 2.0-8.0 MONO % eCW1 ([facility]) 0.0 0.0-3.0 EOS % eCW1 ([facility]) 76.8 36.0-66.0 NEUTROPHILS % eCW1 ([facility]) 12.5 24.0-44.0 LYMPH % eCW1 ([facility]) 0.9 0.0-0.8 MONO # eCW1 ([facility]) 1.1 1.5-5.0 LYMPH # eCW1 ([facility]) 6.8 1.5-8.5 NEUTROPHILS # eCW1 ([facility]) 0.2 0.0-1.0 BASO % eCW1 ([facility]) 0.0 0.0-0.5 EOS # eCW1 ([facility]) 0.0 0.0-0.2 BASO # eCW1 ([facility]) ID Date Data Source NT-PRO BNP 06/05/2020 12:00:00 AM EDT eCW1 ([facility]) Name Value Range Interpretation Code Description Data Kayley rce(s) Supporting Document(s) 285 <125 eCW1 ([facility]) ID Date Data Source [id number] 06/04/2020 12:25:00 PM EDT [facility] Name Value Range Interpretation Code Description Data Kayley rce(s) Supporting Document(s) SARS coronavirus 2 RNA Detected [facility] This lab was ordered by [facility] and reported by [facility]. ID Date Data Source [id number] 05/13/2020 12:09:00 PM EST [facility] ([facility], ) Name Value Range Interpretation Code Description Data Kayley rce(s) Supporting Document(s) Creatinine For GFR 0.66 mg/dL 0.70-1.30 Below low normal [facility] ([facility], ) Glomerular Filtration Rate Laboratory test result Normal (applies to non- numeric results) [facility] ([facility], ) <content>Units are mL/min/1.73 m2</content>
<content></content>
<content>Chronic Kidney Disease Staging per NKF:</content>
<content></content>
<content>Stage I & II GFR >=60 Normal to Mildly Decreased</content>
<content>Stage III GFR 30- 59 Moderately Decreased</content>
<content>Stage IV GFR 15-29 Severely Decreased</content>
<content>Stage V GFR <15 Very Little GFR Left</content>
<content>ESRD GFR <15 on TAR AND AMMONIA PUMP OPERATOR</content>
<content></content> ID Date Data Source [id number] 05/13/2020 12:09:00 PM EST [facility] ([facility], ) Name Value Range Interpretation Code Description Data Kayley rce(s) Supporting Document(s) Urea nitrogen [Mass/volume] in Serum or Plasma 6 mg/dL 7-18 Below low normal [facility] ([facility]) ID Date Data Source [id number] 05/12/2020 01:30:00 PM EST [facility] ([facility]) Name Value Range Interpretation Code Description Data Kayley rce(s) Supporting Document(s) Surgical pathology study Laboratory test result [facility] ([facility]) FINAL DIAGNOSIS Nasal polyp, left, removal: Inflammatory [...] MD 05/16/2020 1246 ID Date Data Source [id number] 03/04/2020 12:00:00 AM EST [facility] Name Value Range Interpretation Code Description Data Kayley rce(s) Supporting Document(s) SARS-CoV2 Rapid Antigen [facility] This lab was reported by [facility]. ID Date Data Source HEPATITIS A IgG 02/27/2020 12:00:00 AM EST eCW1 ([facility]) Name Value Range Interpretation Code Description Data Kayley rce(s) Supporting Document(s) Negative Negative HEPATITIS A IgG TOTAL eCW 1 ([facility]) ID Date Data Source HEPATITIS C VIRUS AB SCRN MEDICARE 02/27/2020 12:00:00 AM ES T eCW1 ([facility]) Name Value Range Interpretation Code Description Data Kayley rce(s) Supporting Document(s) 0.1 <0.8 HEP C VIRUS AB SCREEN MED ICARE eCW1 ([facility]) ID Date Data Source HEPATITIS B SURFACE ANTIGEN 02/27/2020 12:00:00 AM EST eCW1 ([facility]) Name Value Range Interpretation Code Description Data Kayley rce(s) Supporting Document(s) NEGATIVE NEGATIVE HEPATITIS B SURFACE ANTIG EN eCW1 ([facility]) ID Date Data Source HEPATITIS B SURFACE ANTIBODY 02/27/2020 12:00:00 AM EST eCW1 ([facility]) Name Value Range Interpretation Code Description Data Kayley rce(s) Supporting Document(s) NEGATIVE POSITIVE HEPATITIS B SURFACE ANTIB TRI eCW1 ([facility]) ID Date Data Source HEPATITIS A ANTIBODY IGM 02/27/2020 12:00:00 AM EST eCW1 ([facility]) Name Value Range Interpretation Code Description Data Kayley rce(s) Supporting Document(s) NEGATIVE NEGATIVE HEPATITIS A ANTIBODY IGM eCW1 ([facility]) ID Date Data Source CT Maxillofacial w/out Contrast 02/19/2020 12:00:00 AM EST e CW1 ([facility]) Name Value Range Interpretation Code Description Data Kayley rce(s) Supporting Document(s) eCW1 ([facility]) ID Date Data Source PSA SCREENING 02/12/2020 12:00:00 AM EST eCW1 ([facility]) Name Value Range Interpretation Code Description Data Kayley rce(s) Supporting Document(s) 1.71 < 4.00 eCW1 ([facility]) ID Date Data Source LIPID PANEL (CARDIAC RISK) 02/12/2020 12:00:00 AM EST eCW1 ( [facility]) Name Value Range Interpretation Code Description Data Kayley rce(s) Supporting Document(s) Triglyceride [Mass/volume] in Serum or Plasma by calculation 82 <150 eCW1 ([facility]) Cholesterol in LDL [Mass/volume] in Serum or Plasma by calculation 71 <100 eCW1 ([facility]) 87 eCW1 ([facility]) Cholesterol in HDL [Moles/volume] in Serum or Plasma 97 >40 eCW1 ([facility]) Cholesterol [Moles/volume] in Serum or Plasma 184 <200 eCW1 ([facility]) 1.896 <5 eCW1 ([facility]) ID Date Data Source FREE T4 & TSH PANEL 02/12/2020 12:00:00 AM EST eCW1 ([facility]) Name Value Range Interpretation Code Description Data Kayley rce(s) Supporting Document(s) 0.528 0.358-3.740 eCW1 ([facility]) 0.99 0.76-1.46 eCW1 ([facility]) ID Date Data Source CPK CREATINE PHOSPHOKINASE 02/12/2020 12:00:00 AM EST eCW1 ( [facility]) Name Value Range Interpretation Code Description Data Kayley rce(s) Supporting Document(s) [id number] eCW1 ([facility]) Procedure Social History Code Duration Value Status Description Data Source(s ) Smoking 12/28/2020 12:00:00 AM EDT Former Smoker completed Former Smoker eCW1 ([facility]) Smoking 12/28/2020 12:00:00 AM EDT Former Smoker completed Former Smoker eCW1 ([facility]) Smoking 12/28/2020 12:00:00 AM EDT Former Smoker completed Former Smoker eCW1 ([facility]) Smoking 12/23/2020 12:00:00 AM EDT Former Smoker completed Former Smoker eCW1 ([facility]) Smoking 12/02/2020 12:00:00 AM EDT Former Smoker completed Former Smoker eCW1 ([facility]) Smoking 12/02/2020 12:00:00 AM EDT Former Smoker completed Former Smoker eCW1 ([facility]) Smoking 12/02/2020 12:00:00 AM EDT Former Smoker completed Former Smoker eCW1 ([facility]) Alcohol intake 07/18/2020 12:00:00 AM EDT Current drinker of al cohol (finding) completed Current drinker of alcohol (finding) [facility] Smoking 06/05/2020 12:00:00 AM EDT Former Smoker completed Former Smoker eCW1 ([facility]) Smoking 06/05/2020 12:00:00 AM EDT Former Smoker completed Former Smoker eCW1 ([facility]) Smoking 06/05/2020 12:00:00 AM EDT Former Smoker completed Former Smoker eCW1 ([facility]) Smoking 06/05/2020 12:00:00 AM EDT Former Smoker completed Former Smoker eCW1 ([facility]) Smoking 06/05/2020 12:00:00 AM EDT Former Smoker completed Former Smoker eCW1 ([facility]) Smoking 02/27/2020 12:00:00 AM EST Former Smoker completed Former Smoker eCW1 ([facility]) Smoking 02/27/2020 12:00:00 AM EST Former Smoker completed Former Smoker eCW1 ([facility]) Smoking 02/27/2020 12:00:00 AM EST Former Smoker completed Former Smoker eCW1 ([facility]) Smoking 02/27/2020 12:00:00 AM EST Former Smoker completed Former Smoker eCW1 ([facility]) Smoking 02/19/2020 12:00:00 AM EST Former Smoker completed Former Smoker eCW1 ([facility]) Smoking 02/19/2020 12:00:00 AM EST Former Smoker completed Former Smoker eCW1 ([facility]) Smoking 02/12/2020 12:00:00 AM EST Former Smoker completed Former Smoker eCW1 ([facility]) Alcohol intake 01/15/2020 12:00:00 AM EST Yes completed [facility] Cigarette pack-years 01/15/2020 12:00:00 AM EST UNK completed [facility] Cigarettes smoked current (pack per day) - Reported 01/15/20 20 12:00:00 AM EST UNK completed [facility] Smoking 01/15/2020 12:00:00 AM EST Former smoker completed Former smoker [facility] Smoking 01/01/2020 12:00:00 AM EDT Former Smoker completed Former Smoker eCW1 ([facility]) Smoking 01/01/2020 12:00:00 AM EDT Former Smoker completed Former Smoker eCW1 ([facility]) Smoking 01/01/2020 12:00:00 AM EDT Former Smoker completed Former Smoker eCW1 ([facility]) Smoking 01/01/2020 12:00:00 AM EDT Former Smoker completed Former Smoker eCW1 ([facility]) Vital Signs ID Date Data Source UNK Name Value Range Interpretation Code Description Data Source(s) Body weight 86.184 kg 86.184 kg [facility] ([facility]) Body height 68 [in_i] 68 [in_i] [facility] ([facility]) 5'8" Body weight 190.00 [lb_av] 190.00 [lb_av] [facility] T ([facility]) Body mass index (BMI) [Ratio] 28.9 kg/m2 28.9 k g/m2 [facility] ([facility]) [place] body weight 154 [lb_av] 154 [lb_av] [facility] T ([facility]) Body surface area Derived from formula 2.00 m2 2.00 m2 [facility] ([facility]) Body weight 188 [lb_av] 188 [lb_av] eCW1 ([facility]) Body weight 85.28 kg 85.28 kg W1 ([facility]) Body height 70.5 [in_i] 70.5 [in_i] eCW1 ([facility]) Body mass index (BMI) [Ratio] 26.59 kg/m2 26.59 kg/m2 [facility] ([facility]) Heart rate 67 /min 67 /min W1 ([facility]) Respiratory rate 18 /min 18 /min W1 ([facility]) Body temperature 99 [degF] 99 [degF] eCW1 ([facility]) Systolic blood pressure 128 mm[Hg] 128 mm[Hg] e CW1 ([facility]) Diastolic blood pressure 62 mm[Hg] 62 mm[Hg] eCW1 ([facility]) Systolic blood pressure 118 mm[Hg] 118 mm[Hg] M [facility] ([facility]) Diastolic blood pressure 80 mm[Hg] 80 mm[Hg] [facility] ([facility]) Body mass index (BMI) [Ratio] 29.2 kg/m2 29.2 k g/m2 [facility] ([facility]) Body weight 87.091 kg 87.091 kg [facility] ([facility]) Heart rate 67 /min 67 /min [facility] ([facility]) Oxygen saturation in Arterial blood by Pulse oximetry 98 % 98 % [facility] ([facility]) Body temperature 99.9 [degF] 99.9 [degF] [facility] ([facility]) Body height 68 [in_i] 68 [in_i] [facility] ([facility]) 5'8" Body weight 192.00 [lb_av] 192.00 [lb_av] [facility] T ([facility]) [place] body weight 154 [lb_av] 154 [lb_av] [facility] T ([facility]) Body surface area Derived from formula 2.01 m2 2.01 m2 [facility] ([facility]) Body weight 192 [lb_av] 192 [lb_av] eCW1 ([facility]) Body weight 87.09 kg 87.09 kg W1 ([facility]) Body height 70.5 [in_i] 70.5 [in_i] eCW1 ([facility]) Body mass index (BMI) [Ratio] 27.16 kg/m2 27.16 kg/m2 W1 ([facility]) Heart rate 72 /min 72 /min eCW1 ([facility]) Respiratory rate 18 /min 18 /min eCW1 ([facility]) Body temperature 98.9 [degF] 98.9 [degF] eCW1 ( [facility]) Systolic blood pressure 144 mm[Hg] 144 mm[Hg] e CW1 ([facility]) Diastolic blood pressure 72 mm[Hg] 72 mm[Hg] eCW1 ([facility]) Body temperature 99.4 [degF] 99.4 [degF] [facility] ([facility]) Oxygen saturation in Arterial blood by Pulse oximetry 97 % 97 % [facility] ([facility]) Body surface area Derived from formula 2.01 m2 2.01 m2 [facility] ([facility]) Heart rate 68 /min 68 /min [facility] ([facility]) Body weight 87.545 kg 87.545 kg [facility] ([facility]) Body height 68 [in_i] 68 [in_i] [facility] ([facility]) 5'8" Body weight 193.00 [lb_av] 193.00 [lb_av] [facility] T ([facility]) Body mass index (BMI) [Ratio] 29.3 kg/m2 29.3 k g/m2 [facility] ([facility]) [place] body weight 154 [lb_av] 154 [lb_av] [facility] ([facility]) Systolic blood pressure 128 mm[Hg] 128 mm[Hg] M [facility] ([facility]) Diastolic blood pressure 70 mm[Hg] 70 mm[Hg] [facility] ([facility]) Oxygen saturation in Arterial blood by Pulse oximetry 98 % 98 % [facility] ([facility]) Heart rate 70 /min 70 /min [facility] ([facility]) Body temperature 100.1 [degF] 100.1 [degF] [facility]) Systolic blood pressure 130 mm[Hg] 130 mm[Hg] M [facility] ([facility]) Diastolic blood pressure 90 mm[Hg] 90 mm[Hg] [facility] ([facility]) Body weight 188.00 [lb_av] 188.00 [lb_av] [facility] ([facility]) Body height 68 [in_i] 68 [in_i] [facility] ([facility]) 5'8" Body mass index (BMI) [Ratio] 28.6 kg/m2 28.6 k g/m2 [facility] ([facility]) [place] body weight 154 [lb_av] 154 [lb_av] [facility] ([facility]) Body weight 85.277 kg 85.277 kg [facility] ([facility]) Body surface area Derived from formula 1.99 m2 1.99 m2 [facility] ([facility]) Body height 68 [in_i] 68 [in_i] [facility] ([facility]) 5'8" Body weight 85.730 kg 85.730 kg [facility] ([facility]) Body surface area Derived from formula 2.00 m2 2.00 m2 [facility] ([facility]) Body mass index (BMI) [Ratio] 28.7 kg/m2 28.7 k g/m2 [facility] ([facility]) [place] body weight 154 [lb_av] 154 [lb_av] [facility] ([facility]) Body weight 189.00 [lb_av] 189.00 [lb_av] [facility] T ([facility]) Body mass index (BMI) [Ratio] 29.0 kg/m2 29.0 k g/m2 [facility] ([facility]) Body height 68 [in_i] 68 [in_i] [facility] 5'8" Body weight 191.00 [lb_av] 191.00 [lb_av] [facility] T ([facility]) [place] body weight 154 [lb_av] 154 [lb_av] [facility] T ([facility]) Body weight 86.638 kg 86.638 kg [facility] ([facility]) Body surface area Derived from formula 2.00 m2 2.00 m2 [facility] ([facility]) Body weight 86.184 kg 86.184 kg [facility] ([facility]) Body surface area Derived from formula 2.00 m2 2.00 m2 [facility] ([facility]) [place] body weight 154 [lb_av] 154 [lb_av] [facility] T ([facility]) Body weight 190.00 [lb_av] 190.00 [lb_av] [facility] T ([facility]) Body mass index (BMI) [Ratio] 28.9 kg/m2 28.9 k g/m2 [facility] ([facility]) Body height 68 [in_i] 68 [in_i] [facility] ([facility]) 5'8" Body surface area Derived from formula 2.00 m2 2.00 m2 [facility] ([facility]) Body weight 86.184 kg 86.184 kg [facility] ([facility]) [place] body weight 154 [lb_av] 154 [lb_av] [facility] ([facility]) Body mass index (BMI) [Ratio] 28.9 kg/m2 28.9 k g/m2 [facility] ([facility]) Body height 68 [in_i] 68 [in_i] [facility] ([facility]) 5'8" Body weight 190.00 [lb_av] 190.00 [lb_av] [facility] ([facility]) Body mass index (BMI) [Ratio] 28.9 kg/m2 28.9 k g/m2 [facility] [facility] [place] body weight 154 [lb_av] 154 [lb_av] [facility] T ([facility]) Body weight 86.184 kg 86.184 kg [facility] ([facility]) Body surface area Derived from formula 2.00 m2 2.00 m2 [facility] ([facility]) Body height 68 [in_i] 68 [in_i] [facility] ([facility]) 5'8" Body weight 190.00 [lb_av] 190.00 [lb_av] MED[facility] T ([facility]) Systolic blood pressure 120 mm[Hg] 120 mm[Hg] [facility] Diastolic blood pressure 68 mm[Hg] 68 mm[Hg] [facility] Heart rate 67 /min 67 /min [facility] Body height 180.3 cm 180.3 cm [facility] Body weight 85.73 kg 85.73 kg [facility] Body mass index (BMI) [Ratio] 26.36 kg/m2 26.36 kg/m2 [facility] Oxygen saturation in Arterial blood by Pulse oximetry 97 % 97 % [facility] Systolic blood pressure 126 mm[Hg] 126 mm[facility]Hg[facility] Diastolic blood pressure 76 mm[Hg] 76 mm[Hg] [facility] ([facility]) [place] body weight 154 [lb_av] 154 [lb_av] [facility] T ([facility]) Body weight 86.638 kg 86.638 kg [facility] ([facility]) Oxygen saturation in Arterial blood by Pulse oximetry 98 % 98 % [facility] ([facility]) Room Air Body height 68 [in_i] 68 [in_i] [facility] ([facility]) 5'8" Body weight 191.00 [lb_av] 191.00 [lb_av] [facility] ([facility]) Body mass index (BMI) [Ratio] 29.0 kg/m2 29.0 k g/m2 [facility] ([facility]) Body surface area Derived from formula 2.00 m2 2.00 m2 [facility] ([facility]) Heart rate 66 /min 66 /min [facility] ([facility]) Oxygen saturation in Arterial blood by Pulse oximetry 98 % 98 % [facility] ([facility]) Room Air Body height 68 [in_i] 68 [in_i] [facility] ([facility]) 5'8" Body weight 191.00 [lb_av] 191.00 [lb_av] [facility] T ([facility]) Body mass index (BMI) [Ratio] 29.0 kg/m2 29.0 k g/m2 [facility] ([facility]) [place] body weight 154 [lb_av] 154 [lb_av] [facility] ([facility]) Body weight 86.638 kg 86.638 kg [facility] ([facility]) Body surface area Derived from formula 2.00 m2 2.00 m2 [facility] ([facility]) Body height 68 [in_i] 68 [in_i] [facility] ([facility]) 5'8" Body weight 188.00 [lb_av] 188.00 [lb_av] [facility] ([facility]) Body mass index (BMI) [Ratio] 28.6 kg/m2 28.6 k g/m2 [facility] ([facility]) [place] body weight 154 [lb_av] 154 [lb_av] [facility] ([facility]) Body surface area Derived from formula 1.99 m2 1.99 m2 [facility] ([facility]) Body weight 85.277 kg 85.277 kg [facility] ([facility]) Diastolic blood pressure 70 mm[Hg] 70 mm[Hg] [facility] ([facility]) Heart rate 69 /min 69 /min [facility] ([facility]) Systolic blood pressure 120 mm[Hg] 120 mm[facility]Hg] [facility] Oxygen saturation in Arterial blood by Pulse oximetry 97 % 97 % [facility] ([facility]) Room Air Body height 68 [in_i] 68 [in_i] [facility] ([facility]) 5'8" Body weight 188.00 [lb_av] 188.00 [lb_av] [facility] ([facility]) Body mass index (BMI) [Ratio] 28.6 kg/m2 28.6 k g/m2 [facility] ([facility]) [place] body weight 154 [lb_av] 154 [lb_av] [facility] ([facility]) Body weight 85.277 kg 85.277 kg [facility] ([facility]) Body surface area Derived from formula 1.99 m2 1.99 m2 [facility] ([facility]) Body mass index (BMI) [Ratio] 28.3 kg/m2 28.3 k g/m2 [facility] ([facility]) Body height 68 [in_i] 68 [in_i] [facility] ([facility]) 5'8" Body weight 186.00 [lb_av] 186.00 [lb_av] [facility] ([facility]) [place] body weight 154 [lb_av] 154 [lb_av] [facility] ([facility]) Body weight 84.370 kg 84.370 [facility] Body surface area Derived from formula 1.98 m2 1.98 m2 [facility] ([facility]) Body height 68 [in_i] 68 [in_i] [facility] ([facility]) 5'8" Body weight 186.00 [lb_av] 186.00 [lb_av] [facility] ([facility]) Body mass index (BMI) [Ratio] 28.3 kg/m2 28.3 k g/m2 [facility] ([facility]) [place] body weight 154 [lb_av] 154 [lb_av] [facility] ([facility]) Body weight 84.370 kg 84.370 [facility] Body surface area Derived from formula 1.98 m2 1.98 m2 [facility] ([facility]) Body weight 189.4 [lb_av] 189.4 [lb_av] eCW1 ([facility]) Body height 70.5 [in_i] 70.5 [in_i] eCW1 ([facility]) Body mass index (BMI) [Ratio] 26.79 kg/m2 26.79 kg/m2 [facility] ([facility]) Heart rate 83 /min 83 /min eCW1 ([facility]) Respiratory rate 20 /min 20 /min eCW1 ([facility]) Body temperature 99.5 [degF] 99.5 [degF] eCW1 ( [facility]) Systolic blood pressure 138 mm[Hg] 138 mm[Hg] e CW1 ([facility]) Diastolic blood pressure 72 mm[Hg] 72 mm[Hg] eCW1 ([facility]) Body height 68 [in_i] 68 [in_i] [facility] ([facility]) 5'8" Body weight 186.00 [lb_av] 186.00 [lb_av] [facility] T ([facility]) Body mass index (BMI) [Ratio] 28.3 kg/m2 28.3 k g/m2 [facility] ([facility]) [place] body weight 154 [lb_av] 154 [lb_av] [facility] ([facility]) Body weight 84.370 kg 84.370 kg [facility] ([facility]) Body surface area Derived from formula 1.98 m2 1.98 m2 [facility] Body height 68 [in_i] 68 [in_i] [facility] ([facility]) 5'8" Body weight 186.00 [lb_av] 186.00 [lb_av] [facility] ([facility]) Body mass index (BMI) [Ratio] 28.3 kg/m2 28.3 k g/m2 [facility] ([facility]) [place] body weight 154 [lb_av] 154 [lb_av] [facility] T ([facility]) Body weight 84.370 kg 84.370 kg [facility] ([facility]) Body surface area Derived from formula 1.98 m2 1.98 m2 [facility] ([facility]) Body height 68 [in_i] 68 [in_i] [facility] ([facility]) 5'8" Body weight 186.00 [lb_av] 186.00 [lb_av] [facility] ([facility]) Body mass index (BMI) [Ratio] 28.3 kg/m2 28.3 k g/m2 [facility] ([facility]) [place] body weight 154 [lb_av] 154 [lb_av] [facility] T ([facility]) Body weight 84.370 kg 84.370 kg [facility] ([facility]) Body surface area Derived from formula 1.98 m2 1.98 m2 [facility] ([facility]) Body height 68 [in_i] 68 [in_i] [facility] ([facility]) 5'8" Body weight 186.00 [lb_av] 186.00 [lb_av] [facility] T ([facility]) Body mass index (BMI) [Ratio] 28.3 kg/m2 28.3 k g/m2 [facility] ([facility]) [place] body weight 154 [lb_av] 154 [lb_av] [facility] ([facility]) Body weight 84.370 kg 84.370 [facility] Body surface area Derived from formula 1.98 m2 1.98 m2 [facility]) Systolic blood pressure 144 mm[Hg] 144 mm[Hg] M EDENT ([facility], [facility]) Diastolic blood pressure 79 mm[Hg] 79 mm[Hg] [facility] ([facility], [facility]) Oxygen saturation in Arterial blood by Pulse oximetry 96 % 96 % [facility]) Body temperature 98.7 [degF] 98.7 [degF] [facility] ([facility]) Body weight 182.00 [lb_av] 182.00 [lb_av] [facility] T ([facility], [facility]) Heart rate 65 /min 65 /min [facility] ([facility], [facility]) Respiratory rate 16 /min 16 /min [facility] ( [facility], [facility]) Body weight 192.6 [lb_av] 192.6 [lb_av] eCW1 ([facility]) Body height 70.5 [in_i] 70.5 [in_i] eCW1 ([facility]) Body mass index (BMI) [Ratio] 27.24 kg/m2 27.24 kg/m2 eCW1 ([facility]) Heart rate 74 /min 74 /min eCW1 ([facility]) Respiratory rate 18 /min 18 /min eCW1 ([facility]) Body temperature 98.7 [degF] 98.7 [degF] eCW1 ( [facility]) Systolic blood pressure 140 mm[Hg] 140 mm[Hg] e CW1 ([facility]) Diastolic blood pressure 66 mm[Hg] 66 mm[Hg] eCW1 ([facility]) [place] body weight 154 [lb_av] 154 [lb_av] [facility] T ([facility]) Body mass index (BMI) [Ratio] 29.2 kg/m2 29.2 k g/m2 [facility] ([facility]) Oxygen saturation in Arterial blood by Pulse oximetry 99 % 99 % [facility] ([facility]) Body temperature 98.5 [degF] 98.5 [degF] [facility] ([facility]) Body height 68 [in_i] 68 [in_i] [facility] ([facility]) 5'8" Body weight 192.00 [lb_av] 192.00 [lb_av] [facility] T ([facility]) Body surface area Derived from formula 2.01 m2 2.01 m2 [facility] ([facility]) Body weight 87.091 kg 87.091 kg [facility] ([facility]) Systolic blood pressure 130 mm[Hg] 130 mm[Hg] M EDENT ([facility]) Diastolic blood pressure 72 mm[Hg] 72 mm[Hg] [facility] ([facility]) Heart rate 70 /min 70 /min [facility] ([facility]) Body weight 192 [lb_av] 192 [lb_av] eCW1 ([facility]) Body height 70.5 [in_i] 70.5 [in_i] eCW1 ([facility]) Body mass index (BMI) [Ratio] 27.16 kg/m2 27.16 kg/m2 eCW1 ([facility]) Heart rate 79 /min 79 /min eCW1 ([facility]) Respiratory rate 18 /min 18 /min eCW1 ([facility]) Body temperature 99.6 [degF] 99.6 [degF] eCW1 ( [facility]) Systolic blood pressure 132 mm[Hg] 132 mm[Hg] e CW1 ([facility]) Diastolic blood pressure 74 mm[Hg] 74 mm[Hg] eCW1 ([facility]) Systolic blood pressure 148 mm[Hg] 148 mm[Hg] [facility] Diastolic blood pressure 82 mm[Hg] 82 mm[Hg] [facility] Heart rate 70 /min 70 /min [facility] Body height 180.3 cm 180.3 cm [facility] Body weight 86.183 kg 86.183 kg [facility] Body mass index (BMI) [Ratio] 26.50 kg/m2 26.50 kg/m2 [facility] Oxygen saturation in Arterial blood by Pulse oximetry 98 % 98 % [facility] Body weight 186 [lb_av] 186 [lb_av] eCW1 ([facility]) Body height 70.5 [in_i] 70.5 [in_i] W1 ([facility]) Body mass index (BMI) [Ratio] 26.31 kg/m2 26.31 kg/m2 [facility] ([facility]) Body temperature 99.2 [degF] 99.2 [degF] eCW1 ( [facility]) Systolic blood pressure 128 mm[Hg] 128 mm[Hg] e CW1 ([facility]) Diastolic blood pressure 70 mm[Hg] 70 mm[Hg] eCW1 ([facility]) Heart rate 88 /min 88 /min eCW1 ([facility]) Respiratory rate 18 /min 18 /min eCW1 ([facility]) Systolic blood pressure 118 mm[Hg] 118 mm[Hg] M EDENT ([facility], ) Diastolic blood pressure 78 mm[Hg] 78 mm[Hg] [facility] ([facility], ) Heart rate 66 /min 66 /min [facility] ([facility], ) Oxygen saturation in Arterial blood by Pulse oximetry 98 % 98 % [facility] ([facility], ) Room Air Body height 68 [in_i] 68 [in_i] [facility] ([facility], ) 5'8" Body weight 190.00 [lb_av] 190.00 [lb_av] [facility] T ([facility], ) Body mass index (BMI) [Ratio] 28.9 kg/m2 28.9 k g/m2 [facility] ([facility]) [place] body weight 154 [lb_av] 154 [lb_av] [facility] T ([facility]) Body weight 86.184 kg 86.184 kg [facility] ([facility]) Body surface area Derived from formula 2.00 m2 2.00 m2 [facility] ([facility]) Patient Treatment Plan of Care Planned Activity Planned Date Details Description Data Source (s) voriconazole 200 MG Oral Tablet 12/02/2020 12:00:00 AM EDT eCW1 ([facility]) voriconazole 200 MG Oral Tablet 12/02/2020 12:00:00 AM EDT eCW1 ([facility]) voriconazole 200 MG Oral Tablet 12/02/2020 12:00:00 AM EDT eCW1 ([facility]) Hydrochlorothiazide 12.5 MG Oral Tablet 09/12/2020 12:00:00 AM EDT [facility] Simvastatin 40 MG Oral Tablet 09/04/2020 12:00:00 AM EDT [facility] Lisinopril 40 MG Oral Tablet 06/18/2020 12:00:00 AM EDT [facility] Aspir-Low 81 MG 03/11/2020 12:00:00 AM EST eCW1 ([facility]) Aspir-Low 81 MG 03/11/2020 12:00:00 AM EST eCW1 ([facility]) Aspir-Low 81 MG 03/11/2020 12:00:00 AM EST eCW1 ([facility]) Aspir-Low 81 MG 03/11/2020 12:00:00 AM EST eCW1 ([facility]) Doxycycline Monohydrate 100 MG Oral Capsule 02/18/2020 12:00:00 AM EST eCW1 ([facility]) Doxycycline Monohydrate 100 MG Oral Capsule 02/18/2020 12:00:00 AM EST eCW1 ([facility]) Doxycycline Monohydrate 100 MG Oral Capsule 02/18/2020 12:00:00 AM EST eCW1 ([facility]) Doxycycline Monohydrate 100 MG Oral Capsule 02/18/2020 12:00:00 AM EST eCW1 ([facility]) Doxycycline Monohydrate 100 MG Oral Capsule 02/18/2020 12:00:00 AM EST eCW1 ([facility]) Doxycycline Monohydrate 100 MG Oral Capsule 02/18/2020 12:00:00 AM EST eCW1 ([facility]) Doxycycline Monohydrate 100 MG Oral Capsule 02/18/2020 12:00:00 AM EST eCW1 ([facility]) Doxycycline Monohydrate 100 MG Oral Capsule 02/18/2020 12:00:00 AM EST eCW1 ([facility]) Doxycycline Monohydrate 100 MG Oral Capsule 02/18/2020 12:00:00 AM EST eCW1 ([facility]) Doxycycline Monohydrate 100 MG Oral Capsule 02/18/2020 12:00:00 AM EST eCW1 ([facility]) Doxycycline Monohydrate 100 MG Oral Capsule 02/18/2020 12:00:00 AM EST eCW1 ([facility]) Sulfamethoxazole 800 MG / Trimethoprim 160 MG Oral Tab let [Bactrim] 02/12/2020 12:00:00 AM EST eCW1 ([facility]) Trazodone Hydrochloride 50 MG Oral Tablet 01/28/2020 12:00:00 AM ES T eCW1 ([facility]) Trazodone Hydrochloride 50 MG Oral Tablet 01/28/2020 12:00:00 AM ES T eCW1 ([facility]) Trazodone Hydrochloride 50 MG Oral Tablet 01/28/2020 12:00:00 AM ES T eCW1 ([facility]) Trazodone Hydrochloride 50 MG Oral Tablet 01/28/2020 12:00:00 AM ES T eCW1 ([facility]) Trazodone Hydrochloride 50 MG Oral Tablet 01/28/2020 12:00:00 AM ES T eCW1 ([facility]) Trazodone Hydrochloride 50 MG Oral Tablet 01/28/2020 12:00:00 AM ES T eCW1 ([facility]) Trazodone Hydrochloride 50 MG Oral Tablet 01/28/2020 12:00:00 AM ES T eCW1 ([facility]) Simvastatin 40 MG Oral Tablet 01/09/2020 12:00:00 AM EDT [facility] Levofloxacin 500 MG Oral Tablet 01/01/2020 12:00:00 AM EDT eCW1 ([facility]) Levofloxacin 500 MG Oral Tablet 01/01/2020 12:00:00 AM EDT eCW1 ([facility]) Levofloxacin 500 MG Oral Tablet 01/01/2020 12:00:00 AM EDT eCW1 ([facility]) Levofloxacin 500 MG Oral Tablet 01/01/2020 12:00:00 AM EDT eCW1 ([facility]) Lisinopril 40 MG Oral Tablet 08/20/2019 12:00:00 AM EDT [facility] Hydrochlorothiazide 12.5 MG Oral Tablet 08/07/2019 12:00:00 AM EDT [facility]
--- NOTE | 2021-02-01 17:52 | HPEPDOC ---
[facility] Medical History & Physical Date of Admission Feb 01, 2021 Date of Service: Feb 01, 2021 Attending Physician: Sammi Torres MD History and Physical CHIEF COMPLAINT: abdominal pain HISTORY OF PRESENT ILLNESS: Patient is a 70-year-old male with past medical history of congestive heart failure, coronary artery disease status post CABG, nasal type T-cell lymphoma, BALAJI, history of COVID 2, anxiety, aspergillosis sinusitis, hypertension, hyperlipidemia, GERD, hx of c. difficile, depression who presented to [facility] emergency room with the chief complaint of worsening abdominal cramping over the past several weeks. The patient states his symptoms started around 01/16/2021 with abdominal cramping, localized mostly in the right lower quadrant, 12/21, nonradiating. The patient has had diverticulitis in the past and states this pain was similar to those events. He was seen on 01/23/2021 in our emergency room and prescribed moxifloxacin. The patient states he took the 10 days of the antibiotic but did not get much abdominal pain relief. He has had ciprofloxacin and metronidazole in the past; however, metronidazole he says makes his pain worse. He returned today due to increasing abdominal pain which had worsened. The patient admits to some mild fevers nausea, vomiting, diarrhea as outpatient. He denies shortness of breath, chest pain, lightheadedness or dizziness. He denies anything at home which had improved his pain. In the ER vital signs were stable. WBC elevated at 16.2, slightly increased from prior labs on file. CT abd/pelvis: sigmoid diverticulitis. Other abnormal labs showed potassium 3.1. Blood cultures were obtained. Due to the patient's failure of outpatient antibiotics with ciprofloxacin the patient was started on Zosyn IV. The patient was admitted for sigmoid diverticulitis, failing outpatient therapy. REVIEW OF SYSTEMS: CONSTITUTIONAL: Denies lack of energy, unexplained weight gain or weight loss, night sweats EYES: Denies eye drainage, eye pain, visual changes, dry/irritated eye EARS, NOSE, MOUTH, THROAT: Denies difficulty hearing, ringing in ears, mouth sores, loose teeth, sore throat, facial numbness or pain NECK: Denies swollen glands CARDIOVASCULAR: Denies irregular heartbeat, racing heart, chest pains, swelling of feet or legs, pain in legs with walking RESPIRATORY: Denies shortness of breath, night sweats, wheezing, sputum production, oxygen at home, coughing up blood, cough lasting > 1 month GASTROINTESTINAL: Denies constipation, bloody stool, heartburn GENITOURINARY: Denies painful urination, bloody urine, frequent urination, urgency, leaking urine, impotence MUSCULOSKELETAL: Denies joint pain, muscle pain, leg swelling INTEGUMENTARY: Denies rash, itching, new skin lesion, change in existing skin lesion, hair loss or increase, breast changes. NEUROLOGICAL: Denies headaches, dizziness, difficulty walking, numbness or t ingling PSYCHIATRIC: Denies depression, anxiety, recurrent bad thoughts, mood swings, hallucinations PAST MEDICAL HISTORY: congestive heart failure, coronary artery disease status post CABG, nasal type T-cell lymphoma, BALAJI, history of COVID 2, anxiety, hx aspergillosis sinusitis, hypertension, hyperlipidemia, GERD, hx of c. difficile, depression PAST SURGICAL HISTORY: CABG Right knee arthroplasty Port placement Septoplasty Polypectomy FAMILY HISTORY: MotherAML. in her 70s SOCIAL HISTORY: 50+ pack year smoker, quit. Drinks alcohol socially. Denies illicit drug use. Lives locally with his ALLERGIES: Please see below. HOME MEDICATIONS: Please see below. PHYSICAL EXAMINATION: VS: 99.8, 78, 18, 162/78, 98% on room air CONSTITUTIONAL: No acute distress, resting comfortably, AAO x 3 EYES: PERRLA, EOM intact HENT, MOUTH: Normocephalic, atraumatic, moist mucous membranes NECK: SUPPLE, no JVD, no lymphadenopathy, no carotid bruit CV: Regular rate and rhythm, S1S2 normal, no murmurs/rubs/gallops RESPIRATORY: Clear to auscultation bilaterally, no rales/rhonchi/wheezes GI: BS positive in 4 quadrants, soft, tender to touch in the RLQ, nondistended, no rebound or guarding, no organomegaly : Deferred MUSCULOSKELETAL: Normal ROM. No cyanosis, clubbing, swelling, joint deformity. mild b/l lower extremity edema INTEGUMENTARY: Intact, no rashes, no lesions, no erythema NEUROLOGIC: Cranial Nerves II-XII are intact, no focal deficits PSYCHIATRIC: Mood and affect are normal LABORATORY DATA: Please see below IMAGING: CT abd/pelvis: 1. Known mid sigmoid diverticulitis with mildly increased mucosal thickening and mildly increased pericolonic stranding. However, no evidence for obstruction, perforation, ascites, or drainable collection/abscess noted. 2. No new acute process appreciated. MICRO: F/u blood cultures x 2 sets ASSESSMENT: 70-year-old male with past medical history of congestive heart failure, coronary artery disease status post CABG, nasal type T-cell lymphoma, BALAJI, history of COVID 2, anxiety, aspergillosis sinusitis hx, hypertension, hyperlipidemia, GERD, hx of c. difficile, depression admitted for sigmoid diverticulitis, failing outpatient therapy. PLAN: Sigmoid diverticulitis -Failed o/p therapy, hx of recurrent diverticulitis per patient, immunocompromise state with currently undergoing radiation and chemotherapy -WBC 16, abdominal pain for 3 weeks, worsened over the past several days -Starting on clear liquid diet, morphine, Zosyn IV, probiotic, Zofran -History of C. difficile, notify provider if patient develops diarrhea. Acute hypokalemia -K 3.1 -Replace PRN -Daily labs CHF with reduced and preserved EF -Last echo on file showed EF 35% -No s/s of fluid overload, chest pain, shortness of breath -C/w BB, CCB, ACEi. CAD s/p CABG -Denies chest pain, shortness of breath -C/w home CCB, BB, statin. Patient states he no longer takes ASA? Will confirm with pharmacy Nasal type T-cell lymphoma -Recently diagnosed 11/2020 -Follows with both medical oncology (Dr. Goyal) and radiation oncology (Dr. Lund) -Currently receiving chemotherapy and radiation -Follow-up as outpatient BALAJI -Can use home CPAP if he uses on Anxiety -C/w home meds HTN -BP stable -C/w home meds HLD -C/w statin GERD / hx of ulcer bleed -PPI DVT px -Hx of ulcer bleed, teds/scd DISPOSITION: Admitted as acute inpatient. Plan is home at discharge. Vital Signs Vital Signs Date Time Temp Pulse Resp B/P (MAP) Pulse Ox O2 Delivery O2 Flow Rate FiO2 02/01/21 15:07 16 02/01/21 14:17 98 Room Air 02/01/21 13:04 99.8 78 162/78 (106) Laboratory Data Labs 24H Laboratory Tests 2 02/01/21 13:44: Immature Granulocyte % (Auto) 0.9, Neutrophils (%) (Auto) 83.4H, Lymphocytes (%) (Auto) 6.0L, Monocytes (%) (Auto) 9.3H, Eosinophils (%) (Auto) 0.0, Basophils (%) (Auto) 0.4, Neutrophils # (Auto) 13.5H, Lymphocytes # (Auto) 1.0L, Monocytes # (Auto) 1.5H, Eosinophils # (Auto) 0.0, Basophils # (Auto) 0.1, Nucleated Red Blood Cells % (auto) 0.0, Total Bilirubin 0.4, Direct Bilirubin 0.1, Aspartate Amino Transf (AST/SGOT) 23, Alanine Aminotransferase (ALT/SGPT) 29, Alkaline Phosphatase 111, Total Protein 6.7, Albumin 2.8L, Albumin/Globulin Ratio 0.7, Lipase 179 02/01/21 13:54: Urine Color YELLOW, Urine Appearance CLEAR, Urine pH 6.0, Urine Specific [place] 1.016, Urine Protein 1+H, Urine Glucose (UA) NEGATIVE, Urine Ketones NEGATIVE, Urine Blood NEGATIVE, Urine Nitrite NEGATIVE, Urine Bilirubin NEGATIVE, Urine Urobilinogen 2.0H, Urine Leukocyte Esterase NEGATIVE, Urine WBC (Auto) 2, Urine RBC (Auto) 0, Urine Hyaline Casts (Auto) 0, Urine Bacteria (Auto) NEGATIVE, Urine Squamous Epithelial Cells 0, Urine Mucus (Auto) SMALL, Urine Sperm (Auto) 02/01/21 14:12: POC Glucose (Misc Panel) 121H, POC Sodium (Misc Panel) 134L, POC Potassium (Misc Panel) 3.1L, POC Chloride (Misc Panel) 93L, POC Total CO2 (Misc Panel) 30.0H, POC Blood Urea Nitrogen (Misc Panel < 3L, POC Ionized Calcium (Misc Panel) 4.5, POC Creatinine (Misc Panel) 0.6, POC Hematocrit (Misc Panel) 31.0L CBC/BMP Laboratory Tests 02/01/21 13:44 Home Medications Scheduled Amlodipine Besylate (Amlodipine Besylate) 10 Mg Tablet, 10 MG PO DAILY Amlodipine Besylate (Norvasc) 10 Mg Tablet, 1 TAB PO DAILY Amphotericin B (Amphotericin B) 0.5 Gm Powder, 1 POW XX BID Aspirin (Aspirin EC) 81 Mg Tablet.dr, 81 MG PO DAILY Doxazosin Mesylate (Doxazosin Mesylate) 4 Mg Tablet, 4 MG PO DAILY Lisinopril (Lisinopril) 40 Mg Tablet, 40 MG PO DAILY Metoprolol Tartrate (Metoprolol Tartrate) 100 Mg Tablet, 100 MG PO BID Moxifloxacin HCl (Moxifloxacin HCl) 400 Mg Tablet, 1 TAB PO DAILY Omeprazole (Omeprazole) 40 Mg Capsule.dr, 40 MG PO DAILY Paroxetine (Paroxetine HCl) 30 Mg Tablet, 30 MG PO DAILY Simvastatin (Simvastatin) 40 Mg Tablet, 40 MG PO QHS Trazodone HCl (Trazodone HCl) 50 Mg Tab, 50 MG PO QPM Scheduled PRN Alprazolam (Alprazolam) 0.25 Mg Tab, 0.25 MG PO Q8HP PRN for ANXIETY Miscellaneous Medications Ciprofloxacin HCl (Ciprofloxacin HCl) 500 Mg Tablet Hydrocortisone (Hydrocortisone) 5 Mg Tablet Ondansetron HCl (Ondansetron HCl) 8 Mg Tablet Oxaliplatin (Oxaliplatin) 200 Mg/40 Ml Vial, 200 MG IV Sodium Chloride (Sodium Chloride) 1 Gm Tablet Allergies Coded Allergies: latex (Verified Allergy, Unknown, BLISTERS, 06/09/20) HIVES clarithromycin (Verified Adverse Reaction, Unknown, DIZZY, 06/09/20) zolpidem (Verified Adverse Reaction, Unknown, CONFUSION, 06/09/20) A-FIB/CHADSVASC A-FIB History Current/History of A-Fib/PAF?: No Current PO Anticoag Therapy: No Age/Risk Factor Scoring CHADSVASC: CHADSVASC Response (Comments) Value Age Risk Factor Age 65-74 years old 1 Gender Risk Factor Male 0 Hx of CHF Yes 1 Hx of HTN Yes 1 Hx of Stroke/TIA/or VTE No 0 Hx of Diabetes No 0 Hx of Vascular Disease No 0 Total 3 Treatment Treatment ordered: NONE Other anticoagulant ordered: Sammi Elias MD Feb 01, 2021 17:52
[2021-02-01] MEDS ORDERED: AMPHOTERICIN B NARES (17:59)
[2021-02-01] MEDS: ONDANSETRON 4MG/2ML VIAL IV SCH ×2 (18:00→23:18)
[2021-02-01] MEDS ORDERED: metroNIDAZOLE 500 MG in IV 1 EA IV SCH (18:00)
[2021-02-01] MEDS ORDERED: SPIR-10 PO (18:09)
[2021-02-01] MEDS ORDERED: PROC10TA4 PO (18:09)
[2021-02-01] MEDS ORDERED: HYDR-4467 PO (18:09)
[2021-02-01] MEDS ORDERED: PRED5TA PO (18:09)
[2021-02-01] MEDS ORDERED: MOXI1TAB PO (18:09)
[2021-02-01] MEDS ORDERED: HOME MED LIST COMPLETE! XX SCH (18:10)
[2021-02-01 18:28] LABS: RSV AMPLIFICATION NEGATIVE (NEGATIVE)
[2021-02-01] MEDS: PIPERACILLIN/TAZOBACTAM SOD 4.5 GM in D5W MINI-BAG PLUS 50 ML IV SCH ×2 (18:48→23:18)
[2021-02-01 18:49] LABS: INR 1.07; PROTHROMBIN TIME 14.4 SECONDS (12.7-14.5)
[2021-02-01 22:30] VITALS: BP 153/80
[2021-02-01] MEDS: NS 1,000 ML IV SCH (23:17)
[2021-02-01] MEDS: LACTOBACILLUS ACIDOPHILUS CAP (BACID) PO SCH (23:17)
[2021-02-01] MEDS: MORPHINE 2 MG/ML 1ML VIAL (J2270) IV PRN (23:19)
[2021-02-02] MEDS: ONDANSETRON 4MG/2ML VIAL IV SCH ×6 (02:41→21:12)
[2021-02-02] MEDS: NS 1,000 ML IV SCH ×3 (02:50→23:37)
[2021-02-02] MEDS: MORPHINE 2 MG/ML 1ML VIAL (J2270) IV PRN ×2 (04:44→11:37)
[2021-02-02] MEDS: PIPERACILLIN/TAZOBACTAM SOD 4.5 GM in D5W MINI-BAG PLUS 50 ML IV SCH ×4 (05:21→23:36)
[2021-02-02 05:53] LABS: HEMATOCRIT 30.8 % (42.0-52.0); MEAN CORPUSCULAR HEMOGLOBIN 31.1 pg (27.0-33.0); MEAN CORPUSCULAR HGB CONC 32.5 g/dl (32.0-36.5); MEAN CORPUSCULAR VOLUME 95.7 fl (80.0-96.0); PLATELET COUNT, AUTOMATED 601 10^3/uL (150-450); RED BLOOD COUNT 3.22 10^6/uL (4.30-6.10); WHITE BLOOD COUNT 16.3 10^3/uL (4.0-10.0)
[2021-02-02 06:00] VITALS: BP 154/78
[2021-02-02 06:23] LABS: ALBUMIN 2.6 GM/DL (3.2-5.2); ALT/SGPT 23 U/L (12-78); BILIRUBIN,TOTAL 0.4 MG/DL (0.2-1.0); BLOOD UREA NITROGEN 5 MG/DL (7-18); CALCIUM LEVEL 8.4 MG/DL (8.8-10.2); CARBON DIOXIDE LEVEL 32 MEQ/L (21-32); CHLORIDE LEVEL 99 MEQ/L (98-107); CREATININE FOR GFR 0.77 MG/DL (0.70-1.30); GLOMERULAR FILTRATION RATE > 60.0 (>49); GLUCOSE, FASTING 113 MG/DL (70-100); POTASSIUM SERUM 3.6 MEQ/L (3.5-5.1); SODIUM LEVEL 136 MEQ/L (136-145); TOTAL PROTEIN 6.3 GM/DL (6.4-8.2)
[2021-02-02 08:36] VITALS: BP 149/80
[2021-02-02] MEDS: LACTOBACILLUS ACIDOPHILUS CAP (BACID) PO SCH ×2 (09:40→18:20)
[2021-02-02 11:04] VITALS: BP 162/82
[2021-02-02 14:00] VITALS: BP 132/61
[2021-02-02 18:24] LABS: C REACTIVE PROTEIN QUANTITATIV 5.27 MG/DL (0.00-0.30)
[2021-02-02] MEDS ORDERED: ALPRAZolam 0.25 MG TAB PO PRN (20:00)
[2021-02-02] MEDS ORDERED: PROCHLORPERAZINE 5 MG TAB (S0183) PO PRN (20:00)
--- NOTE | 2021-02-02 20:05 | IPNPDOC ---
Date Seen The patient was seen on 02/02/21. Progress Note SUBJECTIVE: States to feel the same, no improvement with WBC still at 16K. Has not been 24 hours yet on abx. Denies n/d but did have some nausea with CLD. OBJECTIVE: PHYSICAL EXAMINATION: VS: Please see below CONSTITUTIONAL: No acute distress, resting comfortably, AAO x 3 EYES: PERRLA, EOM intact HENT, MOUTH: Normocephalic, atraumatic, moist mucous membranes NECK: SUPPLE, no JVD, no lymphadenopathy, no carotid bruit CV: Regular rate and rhythm, S1S2 normal, no murmurs/rubs/gallops RESPIRATORY: Clear to auscultation bilaterally, no rales/rhonchi/wheezes GI: BS positive in 4 quadrants, soft, tender to touch in the RLQ, nondistended, no rebound or guarding, no organomegaly : Deferred MUSCULOSKELETAL: Normal ROM. No cyanosis, clubbing, swelling, joint deformity. mild b/l lower extremity edema INTEGUMENTARY: Intact, no rashes, no lesions, no erythema NEUROLOGIC: Cranial Nerves II-XII are intact, no focal deficits PSYCHIATRIC: Mood and affect are normal LABORATORY DATA: Please see below IMAGING: CT abd/pelvis: 1. Known mid sigmoid diverticulitis with mildly increased mucosal thickening and mildly increased pericolonic stranding. However, no evidence for obstruction, perforation, ascites, or drainable collection/abscess noted. 2. No new acute process appreciated. MICRO: F/u blood cultures x 2 sets ASSESSMENT: 70-year-old male with past medical history of congestive heart failure, coronary artery disease status post CABG, nasal type T-cell lymphoma, BALAJI, history of COVID 2, anxiety, aspergillosis sinusitis hx, hypertension, hyperlipidemia, GERD, hx of c. difficile, depression admitted for sigmoid diverticulitis, failing outpatient therapy. PLAN: Sigmoid diverticulitis -WBC still elevated at 16, no big improvement per patient, afebrile. Has not yet been 24 hours on current tx -Failed o/p therapy with ciprofloxacin and cannot tolerate metronidazole. -Hx of recurrent diverticulitis per patient, immunocompromise state with currently undergoing radiation and chemotherapy -Will c/w clear liquid diet, morphine, Zosyn IV, probiotic, Zofran until tomorrow. If no improvement in WBC and symptoms, consider ID consult. Dr. Ayoub was given a heads up today, as she knows this patient well. -? history of C. difficile, notify provider if patient develops diarrhea. Acute hypokalemia-resolved -K wnl -Replace PRN -Daily labs CHF with reduced and preserved EF -Last echo on file showed EF 35% -No s/s of fluid overload, chest pain, shortness of breath -C/w BB, CCB, ACEi. CAD s/p CABG -Denies chest pain, shortness of breath -C/w home CCB, BB, statin. Patient states he no longer takes ASA? Will confirm with pharmacy Nasal type T-cell lymphoma -Recently diagnosed 11/2020 -Follows with both medical oncology (Dr. Goyal) and radiation oncology (Dr. Lund) -Currently receiving chemotherapy and radiation -Follow-up as outpatient Hx of aspergillus sinusitis -Patient can bring in home amphotericin capsules to use BID to nares BALAJI -Can use home CPAP if he uses on Anxiety -C/w home meds HTN -BP stable -C/w home meds HLD -C/w statin GERD / hx of ulcer bleed -PPI DVT px -Hx of ulcer bleed, teds/scd DISPOSITION: Admitted as acute inpatient. Consult ID (knows patient) if no improvement on 02/03/21. Plan is home at discharge. VS, I&O, 24H, [place] Vital Signs/I&O Vital Signs Date Time Temp Pulse Resp B/P (MAP) Pulse Ox O2 Delivery O2 Flow Rate FiO2 02/02/21 14:00 98.4 84 20 132/61 (84) 97 Room Air I&O- Last 24 Hours up to 6 AM 02/02/21 06:00 Intake Total 1500 ml Balance 1500 ml Laboratory Data 24H LABS Laboratory Tests 2 02/02/21 05:45: Nucleated Red Blood Cells % (auto) 0.0, Anion Gap 5L, Glomerular Filtration Rate > 60.0, Calcium Level 8.4L, Total Bilirubin 0.4, Aspartate Amino Transf (AST/SGOT) 17, Alanine Aminotransferase (ALT/SGPT) 23, Alkaline Phosphatase 98, C-Reactive Protein, Quantitative 5.27H, Total Protein 6.3L, Albumin 2.6L, Albumi n/Globulin Ratio 0.7 CBC/BMP Laboratory Tests 02/02/21 05:45 Microbiology Microbiology 11/21/21 Blood Culture - Preliminary, Resulted No growth after 24 hours . All specim... 02/01/21 Blood Culture - Preliminary, Resulted No growth after 24 hours . All specim... Sammi Torres MD Feb 02, 2021 20:05
[2021-02-02 21:00] VITALS: BP 172/70
[2021-02-02] MEDS ORDERED: AMPHOTERICIN B SCH (21:00)
[2021-02-02] MEDS: traZODone 50 MG TAB PO SCH (21:12)
[2021-02-02] MEDS: HYDROCORTISONE 10 MG TAB PO SCH (21:12)
[2021-02-02] MEDS: METOPROLOL TARTRATE 100 MG TAB PO SCH (21:13)
[2021-02-02] MEDS: SIMVASTATIN 40 MG TAB PO SCH (21:13)
[2021-02-03] MEDS: ONDANSETRON 4MG/2ML VIAL IV SCH ×6 (01:42→21:20)
[2021-02-03] MEDS: PIPERACILLIN/TAZOBACTAM SOD 4.5 GM in D5W MINI-BAG PLUS 50 ML IV SCH ×3 (05:36→18:24)
[2021-02-03 06:00] VITALS: BP 158/80
[2021-02-03 06:25] LABS: HEMATOCRIT 30.3 % (42.0-52.0); HEMOGLOBIN 9.9 g/dl (13.5-17.5); MEAN CORPUSCULAR HEMOGLOBIN 30.9 pg (27.0-33.0); MEAN CORPUSCULAR HGB CONC 32.7 g/dl (32.0-36.5); MEAN CORPUSCULAR VOLUME 94.7 fl (80.0-96.0); PLATELET COUNT, AUTOMATED 611 10^3/uL (150-450); WHITE BLOOD COUNT 14.2 10^3/uL (4.0-10.0)
[2021-02-03 06:43] LABS: ALBUMIN 2.4 GM/DL (3.2-5.2); ALT/SGPT 24 U/L (12-78); BILIRUBIN,TOTAL 0.5 MG/DL (0.2-1.0); BLOOD UREA NITROGEN 5 MG/DL (7-18); CALCIUM LEVEL 8.6 MG/DL (8.8-10.2); CARBON DIOXIDE LEVEL 32 MEQ/L (21-32); CHLORIDE LEVEL 99 MEQ/L (98-107); GLOMERULAR FILTRATION RATE > 60.0 (>49); GLUCOSE, FASTING 98 MG/DL (70-100); SODIUM LEVEL 137 MEQ/L (136-145); TOTAL PROTEIN 6.7 GM/DL (6.4-8.2)
[2021-02-03] MEDS ORDERED: POTASSIUM CHLORIDE 10% LIQ 20 MEQ/15 ML UDC PO ONE (08:10)
[2021-02-03] MEDS ORDERED: ISOVUE-370 76% 100ML VIAL As Ordered ONE (08:33)
[2021-02-03] MEDS: METOPROLOL TARTRATE 100 MG TAB PO SCH ×2 (09:04→21:20)
[2021-02-03] MEDS: LACTOBACILLUS ACIDOPHILUS CAP (BACID) PO SCH ×2 (09:04→18:24)
[2021-02-03] MEDS: KCL 10MEQ/100ML SWI (KRUN) 10 MEQ in IV 1 EA IV SCH ×2 (09:04→11:55)
[2021-02-03] MEDS: PARoxetine 10MG TABLET PO SCH (09:04)
[2021-02-03] MEDS: lisinopriL 40 MG TAB PO SCH (09:05)
[2021-02-03] MEDS: predniSONE 5 MG TAB PO SCH (09:05)
[2021-02-03] MEDS: OMEPRAZOLE 20 MG CAP PO SCH (09:05)
[2021-02-03] MEDS: ASPIRIN 81MG ENTERIC TABLET PO SCH (09:05)
[2021-02-03] MEDS: HYDROCORTISONE 5MG TABLET PO SCH (09:05)
[2021-02-03] MEDS: SPIRONOLACTONE 12.5MG PER 1/2 TABLET PO SCH (09:05)
[2021-02-03] MEDS: DOXAZOSIN MESYLATE 4 MG TAB PO SCH (09:05)
[2021-02-03] MEDS: NS 1,000 ML IV SCH ×2 (09:06→21:19)
--- NOTE | 2021-02-03 09:34 | REPVR ---
PROCEDURE INFORMATION: Exam: CT Maxillofacial With Contrast Exam date and time: 02/03/2021 8:43 AM Age: 70 years old Clinical indication: Other: Swelling; Additional info: Follow up CT, requested by rad/onc TECHNIQUE: Imaging protocol: Computed tomography images of the face with intravenous contrast. Radiation optimization: All CT scans at this facility use at least one of these dose optimization techniques: automated exposure control; mA and/or kV adjustment per patient size (includes targeted exams where dose is matched to clinical indication); or iterative reconstruction. Contrast material: ISO 370; Contrast volume: 75 ml; Contrast route: INTRAVENOUS (IV); COMPARISON: MRI ORBIT FACE NECK W/O FOLL W 12/05/2020 12:45 PM FINDINGS: Orbital cavity: Orbits are normal. Globes are unremarkable. Bones/joints: Bilateral torus mandibularis, normal variant. Paranasal sinuses: Previous left maxillary sinus uncinatectomy. Minimal left ethmoid mucosal air cell thickening. Significant interval increase in left maxillary sinus mucosal thickening. Interval superior posterolateral left maxillary sinus 13 mm cyst/polyp (4.9 Hounsfield units). Intraluminal cysts/polyps are present in the right maxillary sinus (7.4 Hounsfield units), which have developed and/or increased since the prior study. No evidence of contrast enhancement. Soft tissues: Unremarkable. Vasculature: Bilateral carotid atherosclerotic calcifications. Nasal cavity: Lower mid nasal fenestration measuring 4.6 mm redemonstrated. Mild bilateral inferior anterior nasal fossa of nonspecific mucosal thickening, stable (series 203, image 15). Dental: Edentulous maxilla. Nasopharynx: Previous left middle turbinate resection. IMPRESSION: 1. Previous left maxillary sinus uncinatectomy. 2. Previous left middle turbinate resection. 3. Lower mid nasal fenestration, stable. 4. Mild bilateral inferior anterior nasal fossa of nonspecific mucosal thickening, stable. 5. Interval increase in nonspecific bilateral maxillary sinus polypoid/cystic changes. Electronically signed by: Atul Parkinson On 02/03/2021 09:34:00 AM
[2021-02-03 13:48] LABS: BLOOD UREA NITROGEN 6 MG/DL (7-18); CALCIUM LEVEL 8.5 MG/DL (8.8-10.2); CARBON DIOXIDE LEVEL 30 MEQ/L (21-32); CHLORIDE LEVEL 101 MEQ/L (98-107); CREATININE FOR GFR 0.59 MG/DL (0.70-1.30); GLOMERULAR FILTRATION RATE > 60.0 (>49); GLUCOSE, FASTING 111 MG/DL (70-100); POTASSIUM SERUM 4.2 MEQ/L (3.5-5.1); SODIUM LEVEL 136 MEQ/L (136-145)
[2021-02-03 14:00] VITALS: BP 122/63
[2021-02-03 20:57] VITALS: BP 136/72
--- NOTE | 2021-02-03 21:09 | IPNPDOC ---
Date Seen The patient was seen on 02/03/21. Progress Note SUBJECTIVE: patient seen and examined at bedside. doing well. had 1-2 loose stools this morning. Abdo pain resolved. Tolerating diet. He denies CP, palpitations, SOB, subjective fevers. OBJECTIVE PHYSICAL EXAMINATION: VITAL SIGNS: please see below General: NAD, comfortable HEENT: PERRLA, EOMI, sclerae clear Neck: supple, normal ROM, no JVD Respiratory: lungs CTAB, no wheeze, no rales, no crackles CVS: RRR, normal S1, S2, no murmurs Abdo: soft, no masses, no hepatosplenomegaly, BS+, no rebound tenderness Extremities: no edema, pulses 2+ MSK: no joint deformities, normal ROM Neuro: no focal neuro deficits, moving all 4 extremities, CN2-12 intact. Strength 5/5 in all 4 extremities. No nystagmus. Psych: calm, cooperative, AAO x 3 LABORATORY DATA, IMAGING STUDIES, MICROBIOLOGY: Please see below. CT abd/pelvis: 1. Known mid sigmoid diverticulitis with mildly increased mucosal thickening and mildly increased pericolonic stranding. However, no evidence for obstruction, perforation, ascites, or drainable collection/abscess noted. 2. No new acute process appreciated. CT maxillofacial with contrast (02/03/21): 1. Previous left maxillary sinus uncinatectomy. 2. Previous left middle turbinate resection. 3. Lower mid nasal fenestration, stable. 4. Mild bilateral inferior anterior nasal fossa of nonspecific mucosal thickening, stable. 5. Interval increase in nonspecific bilateral maxillary sinus polypoid/cystic changes. DVT prophylaxis ordered?:Y ASSESSMENT AND PLAN: 70-year-old male with past medical history of congestive heart failure, coronary artery disease status post CABG, nasal type T-cell lymphoma, BALAJI, history of COVID 2, anxiety, aspergillosis sinusitis hx, hypertension, hyperlipidemia, GERD, hx of c. difficile, depression admitted for sigmoid diverticulitis, failing outpatient therapy. PROBLEMS: Sigmoid diverticulitis -WBC has trending down. Tolerating diet. -Failed o/p therapy with ciprofloxacin and cannot tolerate metronidazole. -Hx of recurrent diverticulitis per patient, immunocompromise state with currently undergoing radiation and chemotherapy - Day #3 of IV zosyn. He tolerated CLD well, and was advanced to 2g sodium diet, which was also well tolerated. - loose stools, check C diff pcr. Known prior hx of c diff recurrences. Acute hypokalemia-resolved -K wnl -Replace PRN -Daily labs CHF with reduced EF -Last echo on file showed EF 35% -No s/s of fluid overload, chest pain, shortness of breath -C/w BB, CCB, ACEi. CAD s/p CABG -Denies chest pain, shortness of breath -C/w home CCB, BB, statin. - ASA 81 mg daily Nasal type T-cell lymphoma -Recently diagnosed 11/2020 -Follows with both medical oncology (Dr. Goyal) and radiation oncology (Dr. Lund) -Currently receiving chemotherapy and radiation -I discussed CT maxillofacial results with Dr. Goyal, who will arrange f/u - D/w Dr. uLnd, plan to start RT on Hx of aspergillus sinusitis -home amphotericin capsules to use BID to nares BALAJI -Can use home CPAP if he uses on Anxiety -C/w home meds HTN -BP stable -C/w home meds HLD -C/w statin GERD / hx of ulcer bleed -PPI VS, I&O, 24H, Fishbone Vital Signs/I&O Vital Signs Date Time Temp Pulse Resp B/P (MAP) Pulse Ox O2 Delivery O2 Flow Rate FiO2 02/03/21 20:57 98.2 69 16 136/72 (93) 98 Room Air I&O- Last 24 Hours up to 6 AM 02/03/21 06:00 Intake Total 2250 ml Output Total 0 ml Balance 2250 ml Laboratory Data 24H LABS Laboratory Tests 2 02/03/21 05:47: Nucleated Red Blood Cells % (auto) 0.0, Anion Gap 6L, Glomerular Filtration Rate > 60.0, Calcium Level 8.6L, Total Bilirubin 0.5, Aspartate Amino Transf (AST/SGOT) 18, Alanine Aminotransferase (ALT/SGPT) 24, Alkaline Phosphatase 93, Total Protein 6.7, Albumin 2.4L, Albumin/Globulin Ratio 0.6 02/03/21 13:02: Anion Gap 5L, Glomerular Filtration Rate > 60.0, Calcium Level 8.5L CBC/BMP Laboratory Tests 02/03/21 05:47 02/03/21 13:02 Microbiology Microbiology 02/01/21 Blood Culture - Preliminary, Resulted No Growth after 48 hours. All Specime... 02/01/21 Blood Culture - Preliminary, Resulted No Growth after 48 hours. All Specime... HUSSEIN MCKEON MD Feb 03, 2021 21:09
[2021-02-03] MEDS: SIMVASTATIN 40 MG TAB PO SCH (21:19)
[2021-02-03] MEDS: traZODone 50 MG TAB PO SCH (21:19)
[2021-02-03] MEDS: HYDROCORTISONE 10 MG TAB PO SCH (21:20)
[2021-02-04] MEDS: PIPERACILLIN/TAZOBACTAM SOD 4.5 GM in D5W MINI-BAG PLUS 50 ML IV SCH ×3 (00:23→11:18)
[2021-02-04] MEDS: NS 1,000 ML IV SCH ×2 (02:12→14:50)
[2021-02-04] MEDS: ONDANSETRON 4MG/2ML VIAL IV SCH ×4 (02:12→14:56)
[2021-02-04 05:44] VITALS: BP 159/80
[2021-02-04 06:12] LABS: HEMATOCRIT 32.5 % (42.0-52.0); MEAN CORPUSCULAR HEMOGLOBIN 30.7 pg (27.0-33.0); MEAN CORPUSCULAR HGB CONC 30.8 g/dl (32.0-36.5); MEAN CORPUSCULAR VOLUME 99.7 fl (80.0-96.0); PLATELET COUNT, AUTOMATED 516 10^3/uL (150-450); RED BLOOD COUNT 3.26 10^6/uL (4.30-6.10); WHITE BLOOD COUNT 8.9 10^3/uL (4.0-10.0)
[2021-02-04 06:35] LABS: ALBUMIN 2.4 GM/DL (3.2-5.2); ALT/SGPT 27 U/L (12-78); BILIRUBIN,TOTAL 0.3 MG/DL (0.2-1.0); BLOOD UREA NITROGEN 4 MG/DL (7-18); CALCIUM LEVEL 8.6 MG/DL (8.8-10.2); CARBON DIOXIDE LEVEL 28 MEQ/L (21-32); CHLORIDE LEVEL 106 MEQ/L (98-107); CREATININE FOR GFR 0.58 MG/DL (0.70-1.30); GLOMERULAR FILTRATION RATE > 60.0 (>49); GLUCOSE, FASTING 102 MG/DL (70-100); POTASSIUM SERUM 3.7 MEQ/L (3.5-5.1); SODIUM LEVEL 141 MEQ/L (136-145); TOTAL PROTEIN 6.3 GM/DL (6.4-8.2)
[2021-02-04 08:16] VITALS: BP 154/70
[2021-02-04] MEDS: DOXAZOSIN MESYLATE 4 MG TAB PO SCH (09:46)
[2021-02-04] MEDS: HYDROCORTISONE 5MG TABLET PO SCH (09:46)
[2021-02-04 09:47] VITALS: BP 154/70
[2021-02-04] MEDS: ASPIRIN 81MG ENTERIC TABLET PO SCH (09:47)
[2021-02-04] MEDS: LACTOBACILLUS ACIDOPHILUS CAP (BACID) PO SCH (09:47)
[2021-02-04] MEDS: OMEPRAZOLE 20 MG CAP PO SCH (09:47)
[2021-02-04] MEDS: predniSONE 5 MG TAB PO SCH (09:48)
[2021-02-04] MEDS: METOPROLOL TARTRATE 100 MG TAB PO SCH (09:48)
[2021-02-04] MEDS: lisinopriL 40 MG TAB PO SCH (09:48)
[2021-02-04] MEDS: SPIRONOLACTONE 12.5MG PER 1/2 TABLET PO SCH (09:49)
[2021-02-04] MEDS: PARoxetine 10MG TABLET PO SCH (09:49)
[2021-02-04] MEDS ORDERED: ACET1TAB55 PO (13:30)
[2021-02-04] MEDS ORDERED: RISATAB3 PO (13:30)
[2021-02-04] MEDS ORDERED: OXYC1TAB23 PO (13:30)
[2021-02-04] MEDS ORDERED: AUGM875T28 PO (13:37)
[2021-02-04 14:00] VITALS: BP 146/76
[2021-02-04 14:56] LABS: CLOSTRIDIUM DIFFICILE PCR NEGATIVE (NEGATIVE)
[2021-02-04] MEDS ORDERED: VANC125C3 PO (15:20)
--- NOTE | 2021-02-19 02:18 | DS.PDOC ---
Discharge Summary General Date of Admission Feb 01, 2021 at 16:50 Date of Discharge 02/04/21 Discharge Summary PROCEDURES PERFORMED DURING STAY: [None]. ADMITTING DIAGNOSES: Sigmoid diverticulitis Acute hypokalemia CHF with reduced EF CAD s/p CABG Nasal T-cell Lymphoma BALAJI Anxiety HTN Hx bleeding gastric ulcer GERD DISCHARGE DIAGNOSES: Sigmoid diverticulitis Acute hypokalemia CHF with reduced EF CAD s/p CABG Nasal T-cell Lymphoma BALAJI Anxiety HTN Hx bleeding gastric ulcer GERD COMPLICATIONS/CHIEF COMPLAINT: Diverticulitis. HISTORY OF PRESENT ILLNESS: obtained from HPI: "Patient is a 70-year-old male with past medical history of congestive heart failure, coronary artery disease status post CABG, nasal type T-cell lymphoma, BALAJI, history of COVID 2, anxiety, aspergillosis sinusitis, hypertension, hyperlipidemia, GERD, hx of c. difficile, depression who presented to [facility] emergency room with the chief complaint of worsening abdominal cramping over the past several weeks. The patient states his symptoms started around 01/16/2021 with abdominal cramping, localized mostly in the right lower quadrant, 12/21, nonradiating. The patient has had diverticulitis in the past and states this pain was similar to those events. He was seen on 01/23/2021 in our emergency room and prescribed moxifloxacin. The patient states he took the 10 days of the antibiotic but did not get much abdominal pain relief. He has had ciprofloxacin and metronidazole in the past; however, metronidazole he says makes his pain worse. He returned today due to increasing abdominal pain which had worsened. The patient admits to some mild fevers nausea, vomiting, diarrhea as outpatient. He denies shortness of breath, chest pain, lightheadedness or dizziness. He denies anything at home which had improved his pain. In the ER vital signs were stable. WBC elevated at 16.2, slightly increased from prior labs on file. CT abd/pelvis: sigmoid diverticulitis. Other abnormal labs showed potassium 3.1. Blood cultures were obtained. Due to the patient's failure of outpatient antibiotics with ciprofloxacin the patient was started on Zosyn IV. The patient was admitted for sigmoid diverticulitis, failing outpatient therapy." HOSPITAL COURSE: Sigmoid diverticulitis -WBC has trended down from 16 to 8.9. Pain resolved. Diet well tolerated on day of DC. -Failed o/p therapy with ciprofloxacin and cannot tolerate metronidazole. -Hx of recurrent diverticulitis per patient, immunocompromise state with currently undergoing radiation and chemotherapy - patient completed 4 days of IV zosyn. He tolerated CLD well, and was advanced to 2g sodium diet, which was also well tolerated. - since patient was unable to tolerated metronidazole, he will be DC with a 10 day course of PO augmentin 875 mg PO BID. - patient developed loose stools prior to day of DC. GI panel was negative for c diff. Possible loose still related to antibiotic therapy. given patient's prior hx of c diff recurrences, he will be started on a prophylactic 10 day course of PO vancomycin. - probiotics were also prescribed and encouraged. Acute hypokalemia-resolved -K wnl -Replace PRN -Daily labs CHF with reduced EF -Last echo on file showed EF 35% -No s/s of fluid overload, chest pain, shortness of breath -C/w BB, CCB, ACEi. CAD s/p CABG -Denies chest pain, shortness of breath -C/w home CCB, BB, statin. - ASA 81 mg daily - takes PPI given hx of gastric ulcer Nasal type T-cell lymphoma -Recently diagnosed 11/2020 -Follows with both medical oncology (Dr. Goyal) and radiation oncology (Dr. Lund) -Currently receiving chemotherapy and radiation -I discussed CT maxillofacial results with Dr. Goyal, who will arrange f/u - D/w Dr. Lund, plan to start RT on 02/09/21 Hx of aspergillus sinusitis -home amphotericin capsules to use BID to nares BALAJI -Can use home CPAP if he uses on Anxiety -C/w home meds HTN -BP stable -C/w home meds HLD -C/w statin GERD / hx of ulcer bleed -PPI DISCHARGE MEDICATIONS: Please see below. ALLERGIES: Please see below. PHYSICAL EXAMINATION ON DISCHARGE: VITAL SIGNS: please see below General: NAD, comfortable HEENT: PERRLA, EOMI, sclerae clear Neck: supple, normal ROM, no JVD Respiratory: lungs CTAB, no wheeze, no rales, no crackles CVS: RRR, normal S1, S2, no murmurs Abdo: soft, no masses, no hepatosplenomegaly, BS+, no rebound tenderness Extremities: no edema, pulses 2+ MSK: no joint deformities, normal ROM Neuro: no focal neuro deficits, moving all 4 extremities, CN2-12 intact. Strength 5/5 in all 4 extremities. No nystagmus. Psych: calm, cooperative, AAO x 3 LABORATORY DATA: Please see below. IMAGING: CT abd/pelvis: 1. Known mid sigmoid diverticulitis with mildly increased mucosal thickening and mildly increased pericolonic stranding. However, no evidence for obstruction, perforation, ascites, or drainable collection/abscess noted. 2. No new acute process appreciated. CT maxillofacial with contrast (02/03/21): 1. Previous left maxillary sinus uncinatectomy. 2. Previous left middle turbinate resection. 3. Lower mid nasal fenestration, stable. 4. Mild bilateral inferior anterior nasal fossa of nonspecific mucosal thickening, stable. 5. Interval increase in nonspecific bilateral maxillary sinus polypoid/cystic changes. PROGNOSIS: fair ACTIVITY: [As tolerated]. DIET: 2g sodium DISCHARGE PLAN: DC home with PCP follow up. Continue augmentin 875 mg BID x 10 days. Take vancomycin 125 mg qid for prophylaxis against C diff. He will have f/u with his medical oncology (Dr. Goyal) and is planned to start radiation therapy with Dr. Lund on 02/09/21. DISPOSITION: 01 Home, Self-Care. DISCHARGE INSTRUCTIONS: take augmentin 875 mg BID x 10 days Take vancomycin x 10 days Fu with PCP given ASA use in setting of history of gastric ulcer. Please continue to take proton pump inhibitor. If you develop diarrhea, chest pain, shortness of breath, palpitations, fevers, or otherwise worsening of your symptoms, please call 911 or return to the ER. DISCHARGE CONDITION: [Stable]. TIME SPENT ON DISCHARGE: 35 minutes. Discharge Medications Scheduled Amlodipine Besylate (Amlodipine Besylate) 10 Mg Tablet, 10 MG PO DAILY, (Reported) Amoxicillin/Potassium Clav (Augmentin 875-125 Tablet) 1 Each Tablet, 1 TAB PO BID Aspirin (Aspirin EC) 81 Mg Tablet.dr, 81 MG PO DAILY, (Reported) Doxazosin Mesylate (Doxazosin Mesylate) 4 Mg Tablet, 4 MG PO DAILY, (Reported) Hydrocortisone (Hydrocortisone) 5 Mg Tablet, 15 MG PO DAILY, (Reported) Hydrocortisone (Hydrocortisone) 5 Mg Tablet, 10 MG PO QPM, (Reported) L.acidoph/L.bulg/B.bif/S.therm (Tori-Bid Caplet) 1 Each Tablet, 1 EA PO BIDWM Lisinopril (Lisinopril) 40 Mg Tablet, 40 MG PO DAILY, (Reported) Metoprolol Tartrate (Metoprolol Tartrate) 100 Mg Tablet, 100 MG PO BID, (Reported) Omeprazole (Omeprazole) 40 Mg Capsule.dr, 40 MG PO DAILY, (Reported) Paroxetine (Paroxetine HCl) 30 Mg Tablet, 30 MG PO DAILY, (Reported) Simvastatin (Simvastatin) 40 Mg Tablet, 40 MG PO QHS, (Reported) Spironolactone (Spironolactone) 25 Mg Tablet, 12.5 MG PO DAILY, (Reported) Trazodone HCl (Trazodone HCl) 50 Mg Tab, 50 MG PO QHS, (Reported) Vancomycin Hcl (Vancomycin HCl) 125 Mg Capsule, 1 CAP PO QID Scheduled PRN Acetaminophen (Acetaminophen) 325 Mg Tablet, 650 MG PO Q4H PRN for MILD PAIN or TEMP > 101 Alprazolam (Alprazolam) 0.25 Mg Tab, 0.25 MG PO BID PRN for ANXIETY, (Reported) Ondansetron HCl (Ondansetron HCl) 8 Mg Tablet, 8 MG PO Q8H PRN for NAUSEA OR VOMITING, (Reported) Oxycodone HCl/Acetaminophen (Oxycodone-Acetaminophen 5-325) 1 Each Tablet, 1 TAB PO TIDP PRN for pain Prochlorperazine Maleate (Prochlorperazine Maleate) 10 Mg Tablet, 10 MG PO Q6H PRN for NAUSEA OR VOMITING, (Reported) Miscellaneous Medications Oxaliplatin (Oxaliplatin) 200 Mg/40 Ml Vial, 200 MG IV, (Reported) Allergies Coded Allergies: latex (Verified Adverse Reaction, Intermediate, BLISTERS, HIVES, 02/02/21) zolpidem (Verified Adverse Reaction, Intermediate, CONFUSION, 02/02/21) clarithromycin (Verified Adverse Reaction, Mild, DIZZY, 02/02/21) HUSSEIN MCKEON MD Feb 19, 2021 02:18
== END 2021-02-04 17:04 | disposition home or self-care (01) | DRG 392 ==
LOC: M ED 13:04 → M ED INP 16:50 → ENRESERV 20:20 → M MSPAV 22:30
PROVIDERS: ADMIT Internal Medicine; ATTEND Family Medicine
DX: K57.32 Diverticulitis of large intestine without perforation or abscess without bleeding (principal); I50.42 Chronic combined systolic (congestive) and diastolic (congestive) heart failure; C86.0 Extranodal NK/T-cell lymphoma, nasal type; B44.9 Aspergillosis, unspecified; I25.10 Atherosclerotic heart disease of native coronary artery without angina pectoris; G47.33 Obstructive sleep apnea (adult) (pediatric); I11.0 Hypertensive heart disease with heart failure; E78.5 Hyperlipidemia, unspecified; K21.9 Gastro-esophageal reflux disease without esophagitis; Z95.5 Presence of coronary angioplasty implant and graft; Z86.16 Personal history of COVID-19; Z96.651 Presence of right artificial knee joint; Z87.891 Personal history of nicotine dependence; E87.6 Hypokalemia; F41.9 Anxiety disorder, unspecified; Z20.822 Contact with and (suspected) exposure to COVID-19; Z79.899 Other long term (current) drug therapy; Z88.1 Allergy status to other antibiotic agents; Z88.8 Allergy status to other drugs, medicaments and biological substances; Z91.040 Latex allergy status

== ENCOUNTER → 2021-02-10 | Outpatient (RCR) | payer MEDICARE, OTHER ==
[~2021-02-10] MED LIST changes: +ACET1TAB55 PO; +AMPHOTERICIN B NARES; +AUGM875T28 PO; +CIPR500T39 PO; +FLUC200T4 PO; +LIDVISCBTL PO; -OMEP-221 PO; +OMEP40CA5 PO; +ONDA-84 PO; -ONDA8TAB10 PO; +OXYC1TAB23 PO; +PRED5TA PO; +PROC10TA5 PO; +RISATAB3 PO; +SPIR-10 PO; +VANC125C3 PO; +[UNRECOGNIZED DRUG - CODE] IV
== END ==
LOC: M ONCR 01-20 13:20
PROVIDERS: ATTEND General Practice
DX: C86.0 Extranodal NK/T-cell lymphoma, nasal type (principal)

== ENCOUNTER → 2021-02-12 | Outpatient (CLI) | payer MEDICARE, OTHER ==
[~2021-02-12] MED LIST changes: -FLUC200T4 PO; +OMEP-221 PO; -OMEP40CA5 PO; -ONDA-84 PO; +ONDA8TAB10 PO; +PROC10TA4 PO; -PROC10TA5 PO
[2021-02-12 12:44] LABS: BASO # 0.1 10^3/uL (0.0-0.2); BASO % 0.8 % (0.0-1.0); EOS # 0.1 10^3/uL (0.0-0.5); HEMATOCRIT 35.4 % (42.0-52.0); HEMOGLOBIN 11.1 g/dl (13.5-17.5); LYMPH # 1.8 10^3/uL (1.5-5.0); LYMPH % 30.2 % (24.0-44.0); MEAN CORPUSCULAR HEMOGLOBIN 30.6 pg (27.0-33.0); MEAN CORPUSCULAR HGB CONC 31.4 g/dl (32.0-36.5); MEAN CORPUSCULAR VOLUME 97.5 fl (80.0-96.0); MONO # 0.7 10^3/uL (0.0-0.8); MONO % 12.5 % (2.0-8.0); NEUTROPHILS # 3.2 10^3/uL (1.5-8.5); PLATELET COUNT, AUTOMATED 434 10^3/uL (150-450); RED BLOOD COUNT 3.63 10^6/uL (4.30-6.10); WHITE BLOOD COUNT 5.9 10^3/uL (4.0-10.0)
[2021-02-12 12:53] LABS: INR 1.01; PROTHROMBIN TIME 13.7 SECONDS (12.7-14.5)
[2021-02-12 13:07] LABS: ALBUMIN 2.9 GM/DL (3.2-5.2); ALT/SGPT 35 U/L (12-78); BILIRUBIN,TOTAL 0.3 MG/DL (0.2-1.0); BLOOD UREA NITROGEN 9 MG/DL (7-18); CALCIUM LEVEL 8.9 MG/DL (8.8-10.2); CARBON DIOXIDE LEVEL 32 MEQ/L (21-32); CHLORIDE LEVEL 102 MEQ/L (98-107); CREATININE FOR GFR 0.66 MG/DL (0.70-1.30); GLOMERULAR FILTRATION RATE > 60.0 (>49); GLUCOSE, FASTING 94 MG/DL (70-100); LIPASE 355 U/L (73-393); POTASSIUM SERUM 3.8 MEQ/L (3.5-5.1); SODIUM LEVEL 140 MEQ/L (136-145); TOTAL PROTEIN 6.4 GM/DL (6.4-8.2)
== END ==
LOC: M WUC 09:38
PROVIDERS: ATTEND Internal Medicine Hematology & Oncology
DX: C86.0 Extranodal NK/T-cell lymphoma, nasal type (principal)

== ENCOUNTER → 2021-02-19 | Outpatient (CLI) | payer MEDICARE, OTHER ==
[~2021-02-19] MED LIST changes: -LIDVISCBTL PO
[2021-02-19 12:44] LABS: BASO # 0.1 10^3/uL (0.0-0.2); BASO % 0.7 % (0.0-1.0); EOS # 0.1 10^3/uL (0.0-0.5); EOS % 0.6 % (0.0-3.0); HEMATOCRIT 36.5 % (42.0-52.0); HEMOGLOBIN 11.4 g/dl (13.5-17.5); LYMPH # 1.7 10^3/uL (1.5-5.0); MEAN CORPUSCULAR HEMOGLOBIN 30.6 pg (27.0-33.0); MEAN CORPUSCULAR HGB CONC 31.2 g/dl (32.0-36.5); MEAN CORPUSCULAR VOLUME 97.9 fl (80.0-96.0); MONO # 0.8 10^3/uL (0.0-0.8); MONO % 8.8 % (2.0-8.0); NEUTROPHILS # 6.3 10^3/uL (1.5-8.5); NEUTROPHILS % 70.6 % (36.0-66.0); PLATELET COUNT, AUTOMATED 343 10^3/uL (150-450); RED BLOOD COUNT 3.73 10^6/uL (4.30-6.10)
[2021-02-19 12:54] LABS: INR 1.01; PROTHROMBIN TIME 13.7 SECONDS (12.7-14.5)
[2021-02-19 13:42] LABS: ALT/SGPT 28 U/L (12-78); BILIRUBIN,TOTAL 0.3 MG/DL (0.2-1.0); BLOOD UREA NITROGEN 8 MG/DL (7-18); CALCIUM LEVEL 8.8 MG/DL (8.8-10.2); CARBON DIOXIDE LEVEL 32 MEQ/L (21-32); CHLORIDE LEVEL 102 MEQ/L (98-107); CREATININE FOR GFR 0.73 MG/DL (0.70-1.30); GLOMERULAR FILTRATION RATE > 60.0 (>49); GLUCOSE, FASTING 91 MG/DL (70-100); LIPASE 292 U/L (73-393); SODIUM LEVEL 138 MEQ/L (136-145); TOTAL PROTEIN 6.4 GM/DL (6.4-8.2)
== END ==
LOC: M WUC 09:27
PROVIDERS: ATTEND Internal Medicine Hematology & Oncology
DX: C86.0 Extranodal NK/T-cell lymphoma, nasal type (principal)

== ENCOUNTER → 2021-02-26 | Outpatient (CLI) | payer MEDICARE, OTHER ==
[~2021-02-26] MED LIST changes: +LIDVISCBTL PO
[2021-02-26 12:32] LABS: BASO % 0.5 % (0.0-1.0); EOS # 0.1 10^3/uL (0.0-0.5); EOS % 0.7 % (0.0-3.0); HEMOGLOBIN 11.8 g/dl (13.5-17.5); LYMPH # 1.4 10^3/uL (1.5-5.0); LYMPH % 18.8 % (24.0-44.0); MEAN CORPUSCULAR HEMOGLOBIN 30.7 pg (27.0-33.0); MEAN CORPUSCULAR HGB CONC 31.9 g/dl (32.0-36.5); MEAN CORPUSCULAR VOLUME 96.4 fl (80.0-96.0); MONO # 0.7 10^3/uL (0.0-0.8); MONO % 8.6 % (2.0-8.0); NEUTROPHILS # 5.4 10^3/uL (1.5-8.5); NEUTROPHILS % 71.1 % (36.0-66.0); PLATELET COUNT, AUTOMATED 269 10^3/uL (150-450); RED BLOOD COUNT 3.84 10^6/uL (4.30-6.10); WHITE BLOOD COUNT 7.5 10^3/uL (4.0-10.0)
[2021-02-26 12:42] LABS: INR 0.95
[2021-02-26 13:06] LABS: ALBUMIN 3.3 GM/DL (3.2-5.2); ALT/SGPT 25 U/L (12-78); BILIRUBIN,TOTAL 0.4 MG/DL (0.2-1.0); BLOOD UREA NITROGEN 7 MG/DL (7-18); CALCIUM LEVEL 9.1 MG/DL (8.8-10.2); CARBON DIOXIDE LEVEL 31 MEQ/L (21-32); CHLORIDE LEVEL 102 MEQ/L (98-107); CREATININE FOR GFR 0.73 MG/DL (0.70-1.30); GLOMERULAR FILTRATION RATE > 60.0 (>49); GLUCOSE, FASTING 115 MG/DL (70-100); LIPASE 228 U/L (73-393); SODIUM LEVEL 139 MEQ/L (136-145); TOTAL PROTEIN 6.5 GM/DL (6.4-8.2)
== END ==
LOC: M WUC 10:10
PROVIDERS: ATTEND Internal Medicine Hematology & Oncology
DX: C86.0 Extranodal NK/T-cell lymphoma, nasal type (principal)

== ENCOUNTER 2021-03-12 10:46 | Outpatient (RCR) | payer MEDICARE, OTHER | END 2021-03-13 | LOC: M ONCR 10:46 | PROVIDERS: ATTEND General Practice | DX: C86.0 Extranodal NK/T-cell lymphoma, nasal type (principal) ==

== ENCOUNTER → 2021-03-18 | Outpatient (CLI) | payer MEDICARE, OTHER ==
[2021-03-18 16:16] LABS: BASO % 0.4 % (0.0-1.0); EOS % 0.1 % (0.0-3.0); HEMATOCRIT 40.6 % (42.0-52.0); HEMOGLOBIN 12.8 g/dl (13.5-17.5); LYMPH # 1.1 10^3/uL (1.5-5.0); MEAN CORPUSCULAR HGB CONC 31.5 g/dl (32.0-36.5); MEAN CORPUSCULAR VOLUME 95.3 fl (80.0-96.0); MONO # 0.7 10^3/uL (0.0-0.8); MONO % 8.4 % (2.0-8.0); NEUTROPHILS # 6.4 10^3/uL (1.5-8.5); NEUTROPHILS % 77.7 % (36.0-66.0); PLATELET COUNT, AUTOMATED 281 10^3/uL (150-450); RED BLOOD COUNT 4.26 10^6/uL (4.30-6.10); WHITE BLOOD COUNT 8.2 10^3/uL (4.0-10.0)
[2021-03-18 16:28] LABS: INR 1.03; PROTHROMBIN TIME 13.9 SECONDS (12.7-14.5)
[2021-03-18 17:04] LABS: ALBUMIN 3.7 GM/DL (3.2-5.2); ALT/SGPT 29 U/L (12-78); BILIRUBIN,TOTAL 0.4 MG/DL (0.2-1.0); BLOOD UREA NITROGEN 8 MG/DL (7-18); CALCIUM LEVEL 9.2 MG/DL (8.8-10.2); CARBON DIOXIDE LEVEL 28 MEQ/L (21-32); CHLORIDE LEVEL 102 MEQ/L (98-107); GLOMERULAR FILTRATION RATE > 60.0 (>49); GLUCOSE, FASTING 114 MG/DL (70-100); LIPASE 204 U/L (73-393); SODIUM LEVEL 139 MEQ/L (136-145); TOTAL PROTEIN 7.1 GM/DL (6.4-8.2)
== END ==
LOC: M WUC 11:37
PROVIDERS: ATTEND Internal Medicine Hematology & Oncology
DX: Z51.11 Encounter for antineoplastic chemotherapy (principal); C86.0 Extranodal NK/T-cell lymphoma, nasal type

== ENCOUNTER 2021-03-24 10:44 | Outpatient (RCR) | payer MEDICARE, OTHER ==
[~2021-03-24 10:44] MED LIST changes: -OMEP-221 PO; +OMEP40CA5 PO; +ONDA-84 PO; -ONDA8TAB10 PO; -PROC10TA4 PO; +PROC10TA5 PO
== END 2021-04-13 ==
LOC: M ONCR 10:44
PROVIDERS: ATTEND General Practice
DX: C86.0 Extranodal NK/T-cell lymphoma, nasal type (principal)

== ENCOUNTER → 2021-04-21 | Outpatient (CLI) | payer MEDICARE, OTHER ==
[2021-04-21 12:12] LABS: HEMATOCRIT 39.7 % (42.0-52.0); HEMOGLOBIN 12.7 g/dl (13.5-17.5); MEAN CORPUSCULAR HEMOGLOBIN 29.6 pg (27.0-33.0); MEAN CORPUSCULAR VOLUME 92.5 fl (80.0-96.0); PLATELET COUNT, AUTOMATED 299 10^3/uL (150-450); RED BLOOD COUNT 4.29 10^6/uL (4.30-6.10); WHITE BLOOD COUNT 28.8 10^3/uL (4.0-10.0)
[2021-04-21 12:26] LABS: INR 0.97; PROTHROMBIN TIME 13.3 SECONDS (12.7-14.5)
[2021-04-21 12:40] LABS: ALBUMIN 3.6 GM/DL (3.2-5.2); ALT/SGPT 178 U/L (12-78); AMYLASE 86 U/L (25-115); BILIRUBIN,TOTAL 0.1 MG/DL (0.2-1.0); BLOOD UREA NITROGEN 8 MG/DL (7-18); CARBON DIOXIDE LEVEL 33 MEQ/L (21-32); CHLORIDE LEVEL 100 MEQ/L (98-107); CREATININE FOR GFR 0.73 MG/DL (0.70-1.30); GLOMERULAR FILTRATION RATE > 60.0 (>49); GLUCOSE, FASTING 105 MG/DL (70-100); LIPASE 353 U/L (73-393); POTASSIUM SERUM 3.8 MEQ/L (3.5-5.1); SODIUM LEVEL 140 MEQ/L (136-145)
[2021-04-21 12:42] LABS: ATYPICAL LYMPH 1 % (0-5); LYMPHOCYTES 11 % (16-44); METAMYELOCYTES 1 % (0-0); MONOCYTES 9 % (0-5); NEUTROPHILS 75 % (28-66); PLATELET ESTIMATE NORMAL (NORMAL)
== END ==
LOC: M WUC 10:52
PROVIDERS: ATTEND Internal Medicine Hematology & Oncology
DX: Z51.11 Encounter for antineoplastic chemotherapy (principal); C86.0 Extranodal NK/T-cell lymphoma, nasal type

== ENCOUNTER → 2021-04-28 | Outpatient (CLI) | payer MEDICARE, OTHER ==
[~2021-04-28] MED LIST changes: +FLUC200T4 PO
[2021-04-28 12:27] LABS: BASO # 0.1 10^3/uL (0.0-0.2); BASO % 0.5 % (0.0-1.0); EOS % 0.1 % (0.0-3.0); HEMOGLOBIN 12.8 g/dl (13.5-17.5); LYMPH % 14.7 % (24.0-44.0); MEAN CORPUSCULAR HEMOGLOBIN 29.4 pg (27.0-33.0); MONO # 1.3 10^3/uL (0.0-0.8); MONO % 9.8 % (2.0-8.0); NEUTROPHILS # 9.9 10^3/uL (1.5-8.5); NEUTROPHILS % 73.3 % (36.0-66.0); PLATELET COUNT, AUTOMATED 206 10^3/uL (150-450); RED BLOOD COUNT 4.35 10^6/uL (4.30-6.10); WHITE BLOOD COUNT 13.6 10^3/uL (4.0-10.0)
[2021-04-28 12:48] LABS: INR 0.97; PROTHROMBIN TIME 13.3 SECONDS (12.7-14.5)
[2021-04-28 12:54] LABS: ALBUMIN 3.6 GM/DL (3.2-5.2); ALT/SGPT 56 U/L (12-78); AMYLASE 97 U/L (25-115); BILIRUBIN,TOTAL 0.1 MG/DL (0.2-1.0); BLOOD UREA NITROGEN 7 MG/DL (7-18); CARBON DIOXIDE LEVEL 30 MEQ/L (21-32); CHLORIDE LEVEL 101 MEQ/L (98-107); CREATININE FOR GFR 0.73 MG/DL (0.70-1.30); GLOMERULAR FILTRATION RATE > 60.0 (>49); GLUCOSE, FASTING 90 MG/DL (70-100); LIPASE 575 U/L (73-393); POTASSIUM SERUM 4.3 MEQ/L (3.5-5.1); SODIUM LEVEL 139 MEQ/L (136-145); TOTAL PROTEIN 7.1 GM/DL (6.4-8.2)
== END ==
LOC: M WUC 10:43
PROVIDERS: ATTEND Internal Medicine Hematology & Oncology
DX: Z51.11 Encounter for antineoplastic chemotherapy (principal); C86.0 Extranodal NK/T-cell lymphoma, nasal type

== ENCOUNTER → 2021-04-29 | Outpatient (CLI) | payer MEDICARE, OTHER | LOC: M ONCR 15:21 | PROVIDERS: ATTEND General Practice | DX: C86.0 Extranodal NK/T-cell lymphoma, nasal type (principal); R09.81 Nasal congestion; K12.30 Oral mucositis (ulcerative), unspecified ==

== ENCOUNTER → 2021-05-06 | Outpatient (CLI) | payer MEDICARE, OTHER ==
[2021-05-06 16:20] LABS: BASO # 0.1 10^3/uL (0.0-0.2); BASO % 0.4 % (0.0-1.0); EOS % 0.3 % (0.0-3.0); HEMATOCRIT 39.6 % (42.0-52.0); HEMOGLOBIN 12.8 g/dl (13.5-17.5); LYMPH # 1.1 10^3/uL (1.5-5.0); LYMPH % 7.1 % (24.0-44.0); MEAN CORPUSCULAR HEMOGLOBIN 29.6 pg (27.0-33.0); MEAN CORPUSCULAR HGB CONC 32.3 g/dl (32.0-36.5); MEAN CORPUSCULAR VOLUME 91.5 fl (80.0-96.0); MONO % 6.3 % (2.0-8.0); NEUTROPHILS # 12.7 10^3/uL (1.5-8.5); PLATELET COUNT, AUTOMATED 409 10^3/uL (150-450); RED BLOOD COUNT 4.33 10^6/uL (4.30-6.10)
[2021-05-06 16:31] LABS: PROTHROMBIN TIME 13.6 SECONDS (12.7-14.5)
[2021-05-06 16:43] LABS: ALBUMIN 3.5 GM/DL (3.2-5.2); ALT/SGPT 32 U/L (12-78); AMYLASE 98 U/L (25-115); BILIRUBIN,TOTAL 0.2 MG/DL (0.2-1.0); BLOOD UREA NITROGEN 13 MG/DL (7-18); CALCIUM LEVEL 8.7 MG/DL (8.8-10.2); CARBON DIOXIDE LEVEL 29 MEQ/L (21-32); CHLORIDE LEVEL 102 MEQ/L (98-107); CREATININE FOR GFR 0.87 MG/DL (0.70-1.30); GLOMERULAR FILTRATION RATE > 60.0 (>49); GLUCOSE, FASTING 107 MG/DL (70-100); LIPASE 670 U/L (73-393); POTASSIUM SERUM 4.6 MEQ/L (3.5-5.1); SODIUM LEVEL 136 MEQ/L (136-145); TOTAL PROTEIN 6.6 GM/DL (6.4-8.2)
== END ==
LOC: M WUC 13:41
PROVIDERS: ATTEND Internal Medicine Hematology & Oncology
DX: C84.9 Mature T/NK-cell lymphomas, unspecified (principal)
CPT/HCPCS: 36415; 80053; 82150; 83690; 85025; 85384; 85610; 87798; 92511; G0463

== ENCOUNTER → 2021-05-06 | Outpatient (CLI) | payer MEDICARE, OTHER | LOC: M ONCR 14:10 | PROVIDERS: ATTEND General Practice | DX: C86.0 Extranodal NK/T-cell lymphoma, nasal type (principal); B37.0 Candidal stomatitis; Z92.3 Personal history of irradiation | CPT/HCPCS: 92511; G0463 ==

== ENCOUNTER → 2021-05-12 | Outpatient (CLI) | payer MEDICARE, OTHER ==
[2021-05-12 16:23] LABS: BASO # 0.1 10^3/uL (0.0-0.2); BASO % 0.8 % (0.0-1.0); EOS # 0.1 10^3/uL (0.0-0.5); EOS % 0.7 % (0.0-3.0); HEMATOCRIT 38.5 % (42.0-52.0); HEMOGLOBIN 12.2 g/dl (13.5-17.5); LYMPH # 1.3 10^3/uL (1.5-5.0); LYMPH % 16.9 % (24.0-44.0); MEAN CORPUSCULAR HEMOGLOBIN 28.9 pg (27.0-33.0); MEAN CORPUSCULAR HGB CONC 31.7 g/dl (32.0-36.5); MEAN CORPUSCULAR VOLUME 91.2 fl (80.0-96.0); MONO % 12.7 % (2.0-8.0); NEUTROPHILS # 5.3 10^3/uL (1.5-8.5); NEUTROPHILS % 68.5 % (36.0-66.0); PLATELET COUNT, AUTOMATED 261 10^3/uL (150-450); RED BLOOD COUNT 4.22 10^6/uL (4.30-6.10); WHITE BLOOD COUNT 7.7 10^3/uL (4.0-10.0)
[2021-05-12 16:37] LABS: INR 0.92; PROTHROMBIN TIME 12.8 SECONDS (12.7-14.5)
[2021-05-12 16:55] LABS: ALBUMIN 3.5 GM/DL (3.2-5.2); ALT/SGPT 30 U/L (12-78); AMYLASE 95 U/L (25-115); BILIRUBIN,TOTAL 0.3 MG/DL (0.2-1.0); BLOOD UREA NITROGEN 9 MG/DL (7-18); CALCIUM LEVEL 8.8 MG/DL (8.8-10.2); CARBON DIOXIDE LEVEL 33 MEQ/L (21-32); CHLORIDE LEVEL 102 MEQ/L (98-107); CREATININE FOR GFR 0.74 MG/DL (0.70-1.30); GLOMERULAR FILTRATION RATE > 60.0 (>49); GLUCOSE, FASTING 117 MG/DL (70-100); LIPASE 586 U/L (73-393); POTASSIUM SERUM 4.1 MEQ/L (3.5-5.1); SODIUM LEVEL 137 MEQ/L (136-145); TOTAL PROTEIN 6.8 GM/DL (6.4-8.2)
== END ==
LOC: M WUC 11:12
PROVIDERS: ATTEND Internal Medicine Hematology & Oncology
DX: Z51.11 Encounter for antineoplastic chemotherapy (principal); C86.0 Extranodal NK/T-cell lymphoma, nasal type

== ENCOUNTER → 2021-05-20 | Outpatient (CLI) | payer MEDICARE, OTHER ==
[2021-05-20 16:18] LABS: BASO # 0.1 10^3/uL (0.0-0.2); BASO % 0.9 % (0.0-1.0); EOS # 0.1 10^3/uL (0.0-0.5); EOS % 1.5 % (0.0-3.0); HEMATOCRIT 38.3 % (42.0-52.0); HEMOGLOBIN 12.3 g/dl (13.5-17.5); LYMPH # 1.3 10^3/uL (1.5-5.0); LYMPH % 19.7 % (24.0-44.0); MEAN CORPUSCULAR HEMOGLOBIN 29.4 pg (27.0-33.0); MEAN CORPUSCULAR HGB CONC 32.1 g/dl (32.0-36.5); MEAN CORPUSCULAR VOLUME 91.6 fl (80.0-96.0); MONO # 0.8 10^3/uL (0.0-0.8); MONO % 12.4 % (2.0-8.0); NEUTROPHILS # 4.4 10^3/uL (1.5-8.5); NEUTROPHILS % 65.2 % (36.0-66.0); PLATELET COUNT, AUTOMATED 259 10^3/uL (150-450); RED BLOOD COUNT 4.18 10^6/uL (4.30-6.10); WHITE BLOOD COUNT 6.8 10^3/uL (4.0-10.0)
[2021-05-20 16:30] LABS: INR 0.95; PROTHROMBIN TIME 13.1 SECONDS (12.7-14.5)
[2021-05-20 17:17] LABS: ALBUMIN 3.6 GM/DL (3.2-5.2); ALT/SGPT 32 U/L (12-78); AMYLASE 84 U/L (25-115); BILIRUBIN,TOTAL 0.3 MG/DL (0.2-1.0); BLOOD UREA NITROGEN 13 MG/DL (7-18); CALCIUM LEVEL 8.8 MG/DL (8.8-10.2); CARBON DIOXIDE LEVEL 32 MEQ/L (21-32); CHLORIDE LEVEL 104 MEQ/L (98-107); CREATININE FOR GFR 0.71 MG/DL (0.70-1.30); GLOMERULAR FILTRATION RATE > 60.0 (>49); GLUCOSE, FASTING 109 MG/DL (70-100); LIPASE 555 U/L (73-393); POTASSIUM SERUM 4.1 MEQ/L (3.5-5.1); SODIUM LEVEL 139 MEQ/L (136-145); TOTAL PROTEIN 6.9 GM/DL (6.4-8.2)
== END ==
LOC: M WUC 11:33
PROVIDERS: ATTEND Internal Medicine Hematology & Oncology
DX: C86.0 Extranodal NK/T-cell lymphoma, nasal type (principal); Z51.11 Encounter for antineoplastic chemotherapy

== ENCOUNTER → 2021-06-08 | Outpatient (CLI) | payer MEDICARE, OTHER | LOC: M PLARAD 09:50 | PROVIDERS: ATTEND General Practice | DX: C86.0 Extranodal NK/T-cell lymphoma, nasal type (principal) | CPT/HCPCS: 78815; A9552 ==

== ENCOUNTER → 2021-06-10 | Outpatient (CLI) | payer MEDICARE, OTHER | LOC: M ONCR 13:16 | PROVIDERS: ATTEND General Practice | DX: C86.0 Extranodal NK/T-cell lymphoma, nasal type (principal); Z79.899 Other long term (current) drug therapy; Z87.891 Personal history of nicotine dependence; Z88.1 Allergy status to other antibiotic agents; Z88.8 Allergy status to other drugs, medicaments and biological substances; Z91.040 Latex allergy status | CPT/HCPCS: 31575; G0463 ==

== ENCOUNTER → 2021-06-17 | Outpatient (CLI) | payer MEDICARE, OTHER ==
[~2021-06-17] MED LIST changes: +LIDOCAINE 1% MDV 20ML VIAL As Ordered ONE
[2021-06-17 13:31] VITALS: BP 156/71
== END ==
LOC: M IRPRO 12:09
PROVIDERS: ATTEND General Practice
DX: C86.0 Extranodal NK/T-cell lymphoma, nasal type (principal)

== ENCOUNTER → 2021-06-23 | Outpatient (CLI) | payer MEDICARE, OTHER ==
[~2021-06-23] MED LIST changes: -LIDOCAINE 1% MDV 20ML VIAL As Ordered ONE
== END ==
LOC: M WUC 15:26
DX: M54.50 Low back pain, unspecified (principal)

== ENCOUNTER → 2021-07-08 | Outpatient (CLI) | payer MEDICARE, OTHER | LOC: M ONCR 11:33 | PROVIDERS: ATTEND General Practice | DX: C86.0 Extranodal NK/T-cell lymphoma, nasal type (principal); Z92.3 Personal history of irradiation ==

== ENCOUNTER → 2021-07-28 | Outpatient (CLI) | payer MEDICARE, OTHER ==
[2021-07-28 12:01] LABS: BLOOD UREA NITROGEN 17 MG/DL (7-18); CARBON DIOXIDE LEVEL 31 MEQ/L (21-32); CHLORIDE LEVEL 99 MEQ/L (98-107); CREATININE FOR GFR 0.82 MG/DL (0.70-1.30); GLOMERULAR FILTRATION RATE > 60.0 (>49); GLUCOSE, FASTING 86 MG/DL (70-100); POTASSIUM SERUM 4.1 MEQ/L (3.5-5.1); SODIUM LEVEL 135 MEQ/L (136-145)
== END ==
LOC: M WUC 10:09
PROVIDERS: ATTEND Nurse Practitioner Family
DX: I10 Essential (primary) hypertension (principal)

== ENCOUNTER → 2021-08-11 | Outpatient (RCR) | payer MEDICARE, OTHER ==
[~2021-08-11] MED LIST changes: +MAGICMW SSP; +OXYC1SOL3 PO
== END ==
LOC: M ONCR 07-20 10:10
PROVIDERS: ATTEND General Practice
DX: C86.0 Extranodal NK/T-cell lymphoma, nasal type (principal)

== ENCOUNTER → 2021-09-01 | Outpatient (CLI) | payer MEDICARE, OTHER ==
[~2021-09-01] MED LIST changes: +LEVO500T4 PO; +OXYC-517 PO
[2021-09-01 12:49] LABS: BASO # 0.1 10^3/uL (0.0-0.2); BASO % 0.8 % (0.0-1.0); EOS # 0.2 10^3/uL (0.0-0.5); EOS % 2.4 % (0.0-3.0); HEMATOCRIT 40.9 % (42.0-52.0); HEMOGLOBIN 13.4 g/dl (13.5-17.5); LYMPH # 0.3 10^3/uL (1.5-5.0); LYMPH % 5.2 % (24.0-44.0); MEAN CORPUSCULAR HEMOGLOBIN 29.6 pg (27.0-33.0); MEAN CORPUSCULAR HGB CONC 32.8 g/dl (32.0-36.5); MEAN CORPUSCULAR VOLUME 90.3 fl (80.0-96.0); MONO # 0.9 10^3/uL (0.0-0.8); MONO % 13.5 % (2.0-8.0); NEUTROPHILS # 4.9 10^3/uL (1.5-8.5); NEUTROPHILS % 76.5 % (36.0-66.0); PLATELET COUNT, AUTOMATED 292 10^3/uL (150-450); RED BLOOD COUNT 4.53 10^6/uL (4.30-6.10); WHITE BLOOD COUNT 6.4 10^3/uL (4.0-10.0)
[2021-09-01 13:34] LABS: ALBUMIN 3.5 GM/DL (3.2-5.2); ALT/SGPT 18 U/L (12-78); BILIRUBIN,TOTAL 0.3 MG/DL (0.2-1.0); BLOOD UREA NITROGEN 7 MG/DL (7-18); CALCIUM LEVEL 8.9 MG/DL (8.8-10.2); CARBON DIOXIDE LEVEL 29 MEQ/L (21-32); CHLORIDE LEVEL 102 MEQ/L (98-107); CREATININE FOR GFR 0.79 MG/DL (0.70-1.30); GLOMERULAR FILTRATION RATE > 60.0 (>49); GLUCOSE, FASTING 99 MG/DL (70-100); POTASSIUM SERUM 4.2 MEQ/L (3.5-5.1); SODIUM LEVEL 139 MEQ/L (136-145); TOTAL PROTEIN 7.3 GM/DL (6.4-8.2)
== END ==
LOC: M ONCR 11:46
PROVIDERS: ATTEND General Practice
DX: C86.0 Extranodal NK/T-cell lymphoma, nasal type (principal)

== ENCOUNTER 2021-09-04 10:28 | Outpatient (RCR) | payer MEDICARE, OTHER ==
[2021-09-04] MEDS ORDERED: TRIA1CR80 TOP (11:13)
[2021-09-10] MEDS ORDERED: OXYC10TA12 PO (08:41)
== END 2021-09-10 ==
LOC: M ONCR 10:28
PROVIDERS: ATTEND General Practice
DX: C86.0 Extranodal NK/T-cell lymphoma, nasal type (principal)

== ENCOUNTER → 2021-09-08 | Outpatient (CLI) | payer MEDICARE, OTHER ==
[~2021-09-08] MED LIST changes: +OXYC10TA12 PO; +TRIA1CR80 TOP
== END ==
LOC: M ONCR 14:44
PROVIDERS: ATTEND General Practice
DX: L58.9 Radiodermatitis, unspecified (principal); Z92.3 Personal history of irradiation

== ENCOUNTER → 2021-09-16 | Outpatient (CLI) | payer MEDICARE, OTHER | LOC: M ONCR 10:46 | PROVIDERS: ATTEND General Practice | DX: L58.9 Radiodermatitis, unspecified (principal); Z92.3 Personal history of irradiation ==

== ENCOUNTER → 2021-10-02 | Outpatient (REF) | payer MEDICARE, OTHER | LOC: M LABWUC 11:22 | PROVIDERS: ATTEND Internal Medicine | DX: E27.40 Unspecified adrenocortical insufficiency (principal) ==

== ENCOUNTER → 2021-11-19 | Outpatient (CLI) | payer MEDICARE, OTHER ==
[~2021-11-19] MED LIST changes: +LEVO1TAB39 PO; -LEVO500T4 PO
== END ==
LOC: M PLARAD 11:39
PROVIDERS: ATTEND General Practice
DX: C86.0 Extranodal NK/T-cell lymphoma, nasal type (principal)
CPT/HCPCS: 78815; A9552

== ENCOUNTER → 2021-11-24 | Outpatient (CLI) | payer MEDICARE, OTHER | LOC: M ONCR 09:50 | PROVIDERS: ATTEND General Practice | DX: Z08 Encounter for follow-up examination after completed treatment for malignant neoplasm (principal); Z85.72 Personal history of non-Hodgkin lymphomas; Z85.828 Personal history of other malignant neoplasm of skin; Z87.891 Personal history of nicotine dependence; Z88.1 Allergy status to other antibiotic agents; Z88.8 Allergy status to other drugs, medicaments and biological substances; Z79.82 Long term (current) use of aspirin; Z79.899 Other long term (current) drug therapy; Z91.040 Latex allergy status; Z92.21 Personal history of antineoplastic chemotherapy; Z92.3 Personal history of irradiation | CPT/HCPCS: 31575; G0463 ==

== ENCOUNTER → 2021-11-27 | Outpatient (CLI) | payer MEDICARE, OTHER ==
[2021-11-27 10:43] LABS: FREE T4 0.87 NG/DL (0.76-1.46); THYROID STIMULATING HORMONE 1.28 uIU/ML (0.358-3.740)
[2021-11-27 12:15] LABS: CORTISOL AM 11.8 UG/DL (4.3-22.4)
== END ==
LOC: M ONCR 09:00
PROVIDERS: ATTEND General Practice
DX: C86.0 Extranodal NK/T-cell lymphoma, nasal type (principal); Z79.899 Other long term (current) drug therapy

== ENCOUNTER → 2022-01-05 | Outpatient (CLI) | payer MEDICARE, OTHER | LOC: M WUC 11:50 | PROVIDERS: ATTEND Internal Medicine Pulmonary Disease | DX: J47.9 Bronchiectasis, uncomplicated (principal); R05.9 Cough, unspecified ==

== ENCOUNTER → 2022-01-08 | Outpatient (CLI) | payer MEDICARE, OTHER ==
[~2022-01-08] MED LIST changes: +SODIUM CHLORIDE 0.9% INJ 10 ML SYR IV PRN
== END ==
LOC: M ONCM 10:54
PROVIDERS: ATTEND General Practice
DX: Z45.2 Encounter for adjustment and management of vascular access device (principal)

== ENCOUNTER → 2022-01-11 | Outpatient (REF) | payer MEDICARE, OTHER ==
[~2022-01-11] MED LIST changes: -DOXY-350 PO; +DOXY-444 PO; -SODIUM CHLORIDE 0.9% INJ 10 ML SYR IV PRN
[2022-01-11 18:04] LABS: BLOOD UREA NITROGEN 14 MG/DL (7-18); CALCIUM LEVEL 9.1 MG/DL (8.8-10.2); CARBON DIOXIDE LEVEL 30 MEQ/L (21-32); CHLORIDE LEVEL 95 MEQ/L (98-107); CREATININE FOR GFR 0.85 MG/DL (0.70-1.30); GLOMERULAR FILTRATION RATE > 60.0 (>49); GLUCOSE, FASTING 106 MG/DL (70-100); SODIUM LEVEL 130 MEQ/L (136-145)
== END ==
LOC: M WUC 16:42
PROVIDERS: ATTEND Nurse Practitioner Family
DX: I10 Essential (primary) hypertension (principal)

== ENCOUNTER → 2022-02-08 | Outpatient (CLI) | payer MEDICARE, OTHER ==
[2022-02-08 18:36] LABS: CHLORIDE LEVEL 92 MMOL/L (98-107); SODIUM LEVEL 129 MMOL/L (136-145)
[2022-02-08 18:37] LABS: CARBON DIOXIDE LEVEL 28 MMOL/L (20-31)
[2022-02-08 18:38] LABS: ALBUMIN 3.7 G/DL (3.2-5.2)
[2022-02-08 18:42] LABS: BLOOD UREA NITROGEN 12 MG/DL (9-23); GLUCOSE, FASTING 101 MG/DL (74-106)
[2022-02-08 18:43] LABS: ALKALINE PHOSPHATASE 46 U/L (46-116)
[2022-02-08 18:44] LABS: BILIRUBIN,TOTAL 0.4 MG/DL (0.3-1.2); CREATININE FOR GFR 0.77 MG/DL (0.70-1.30); GLOMERULAR FILTRATION RATE > 60.0 (>49); TOTAL PROTEIN 6.7 G/DL (5.7-8.2)
[2022-02-08 18:45] LABS: ALT/SGPT 31 U/L (7.0-40); AST/SGOT 26 U/L (<34)
== END ==
LOC: M WUC 10:42
PROVIDERS: ATTEND General Practice
DX: C86.0 Extranodal NK/T-cell lymphoma, nasal type (principal)

== ENCOUNTER → 2022-02-12 | Outpatient (CLI) | payer MEDICARE, OTHER ==
[~2022-02-12] MED LIST changes: +ISOVUE-370 76% 100ML VIAL As Ordered ONE
== END ==
LOC: M RAD 13:41
PROVIDERS: ATTEND General Practice
DX: C86.0 Extranodal NK/T-cell lymphoma, nasal type (principal)
CPT/HCPCS: 70487; 70491; Q9967

== ENCOUNTER → 2022-02-18 | Outpatient (CLI) | payer MEDICARE, OTHER ==
[~2022-02-18] MED LIST changes: +DULO1CAP6 PO; -ISOVUE-370 76% 100ML VIAL As Ordered ONE; -PAXI30TA11 PO; +PAXI30TA12 PO; +SODIUM CHLORIDE 0.9% INJ 10 ML SYR IV PRN
== END ==
LOC: M ONCR 11:33
PROVIDERS: ATTEND General Practice
DX: C86.0 Extranodal NK/T-cell lymphoma, nasal type (principal); G62.0 Drug-induced polyneuropathy; T45.1X5A Adverse effect of antineoplastic and immunosuppressive drugs, initial encounter; Z79.82 Long term (current) use of aspirin; Z79.899 Other long term (current) drug therapy; Z87.891 Personal history of nicotine dependence; Z88.1 Allergy status to other antibiotic agents; Z88.8 Allergy status to other drugs, medicaments and biological substances; Z91.040 Latex allergy status; Z92.21 Personal history of antineoplastic chemotherapy; Z92.3 Personal history of irradiation; Z95.828 Presence of other vascular implants and grafts
CPT/HCPCS: 31575; G0463

== ENCOUNTER → 2022-03-12 | Outpatient (CLI) | payer MEDICARE, OTHER ==
[~2022-03-12] MED LIST changes: -SODIUM CHLORIDE 0.9% INJ 10 ML SYR IV PRN
[2022-03-12 10:07] LABS: BASO # 0.1 10^3/uL (0.0-0.2); BASO % 1.3 % (0.0-1.0); EOS # 0.1 10^3/uL (0.0-0.5); EOS % 1.8 % (0.0-3.0); HEMOGLOBIN 12.5 g/dl (13.5-17.5); LYMPH # 0.4 10^3/uL (1.5-5.0); LYMPH % 9.8 % (24.0-44.0); MEAN CORPUSCULAR HEMOGLOBIN 30.7 pg (27.0-33.0); MEAN CORPUSCULAR HGB CONC 32.9 g/dl (32.0-36.5); MEAN CORPUSCULAR VOLUME 93.4 fl (80.0-96.0); MONO # 0.5 10^3/uL (0.0-0.8); NEUTROPHILS % 74.6 % (36.0-66.0); PLATELET COUNT, AUTOMATED 256 10^3/uL (150-450); RED BLOOD COUNT 4.07 10^6/uL (4.30-6.10)
[2022-03-12 10:43] LABS: CHOLESTEROL RISK RATIO 1.89 (<5); CORTISOL AM 10.1 UG/DL (4.3-22.4); HDL CHOLESTEROL 86.7 MG/DL (>40); LDL CHOLESTEROL 62.1 MG/DL (<100)
[2022-03-12 10:44] LABS: FREE T3 3.8 PG/ML (2.3-4.2); TOTAL 25(OH) VITAMIN D 29.5 NG/ML (20.0-100.0)
[2022-03-12 10:45] LABS: THYROID STIMULATING HORMONE 2.166 uIU/ML (0.55-4.78)
[2022-03-12 10:46] LABS: FREE T4 1.06 NG/DL (0.89-1.76)
[2022-03-12 11:24] LABS: HEMOGLOBIN A1c 5.3 % (4.0-6.0)
== END ==
LOC: M WUC 08:38
PROVIDERS: ATTEND Physician Assistant Medical
DX: G62.9 Polyneuropathy, unspecified (principal); R73.01 Impaired fasting glucose; Z92.3 Personal history of irradiation; E78.2 Mixed hyperlipidemia; C85.90 Non-Hodgkin lymphoma, unspecified, unspecified site; I10 Essential (primary) hypertension; Z79.899 Other long term (current) drug therapy

== ENCOUNTER → 2022-03-25 | Outpatient (CLI) | payer MEDICARE, OTHER ==
[2022-03-25 16:03] LABS: ALBUMIN 3.7 G/DL (3.2-5.2); ALKALINE PHOSPHATASE 48 U/L (46-116); ALT/SGPT 28 U/L (7.0-40); AST/SGOT 24 U/L (<34); BILIRUBIN,TOTAL 0.5 MG/DL (0.3-1.2); BLOOD UREA NITROGEN 12 MG/DL (9-23); CALCIUM LEVEL 9.1 MG/DL (8.3-10.6); CARBON DIOXIDE LEVEL 30 MMOL/L (20-31); CHLORIDE LEVEL 95 MMOL/L (98-107); CREATININE FOR GFR 0.87 MG/DL (0.70-1.30); GLOMERULAR FILTRATION RATE > 60.0 (>49); GLUCOSE, FASTING 110 MG/DL (74-106); POTASSIUM SERUM 5.6 MMOL/L (3.5-5.1); SODIUM LEVEL 131 MMOL/L (136-145); TOTAL PROTEIN 6.6 G/DL (5.7-8.2)
== END ==
LOC: M PLALAB 12:03
PROVIDERS: ATTEND Physician Assistant Medical
DX: E78.2 Mixed hyperlipidemia (principal)

== ENCOUNTER → 2022-04-08 | Outpatient (REF) | payer MEDICARE, OTHER ==
[2022-04-08 17:57] LABS: BLOOD UREA NITROGEN 12 MG/DL (9-23); CALCIUM LEVEL 8.7 MG/DL (8.3-10.6); CARBON DIOXIDE LEVEL 30 MMOL/L (20-31); CHLORIDE LEVEL 97 MMOL/L (98-107); CREATININE FOR GFR 0.82 MG/DL (0.70-1.30); GLOMERULAR FILTRATION RATE > 60.0 (>49); GLUCOSE, FASTING 101 MG/DL (74-106); POTASSIUM SERUM 4.5 MMOL/L (3.5-5.1); SODIUM LEVEL 132 MMOL/L (136-145)
== END ==
LOC: M LABWUC 16:38
PROVIDERS: ATTEND Nurse Practitioner Family
DX: I10 Essential (primary) hypertension (principal)

== ENCOUNTER → 2022-04-08 | Outpatient (REF) | payer MEDICARE, OTHER ==
[2022-04-08 17:57] LABS: ALBUMIN 3.9 G/DL (3.2-5.2); ALKALINE PHOSPHATASE 48 U/L (46-116); ALT/SGPT 26 U/L (7.0-40); AST/SGOT 26 U/L (<34); BILIRUBIN,TOTAL 0.4 MG/DL (0.3-1.2); BLOOD UREA NITROGEN 11 MG/DL (9-23); CALCIUM LEVEL 8.8 MG/DL (8.3-10.6); CARBON DIOXIDE LEVEL 29 MMOL/L (20-31); CHLORIDE LEVEL 97 MMOL/L (98-107); CREATININE FOR GFR 0.81 MG/DL (0.70-1.30); GLOMERULAR FILTRATION RATE > 60.0 (>49); GLUCOSE, FASTING 102 MG/DL (74-106); POTASSIUM SERUM 4.6 MMOL/L (3.5-5.1); SODIUM LEVEL 134 MMOL/L (136-145); TOTAL PROTEIN 6.6 G/DL (5.7-8.2)
== END ==
LOC: M LABWUC 16:34
PROVIDERS: ATTEND Physician Assistant Medical
DX: E78.2 Mixed hyperlipidemia (principal); E87.5 Hyperkalemia

== ENCOUNTER → 2022-05-07 | Outpatient (CLI) | payer MEDICARE, OTHER ==
[2022-05-07 17:08] LABS: BLOOD UREA NITROGEN 12 MG/DL (9-23); CALCIUM LEVEL 9.3 MG/DL (8.3-10.6); CARBON DIOXIDE LEVEL 30 MMOL/L (20-31); CHLORIDE LEVEL 97 MMOL/L (98-107); GLOMERULAR FILTRATION RATE > 60.0 (>49); GLUCOSE, FASTING 107 MG/DL (74-106); POTASSIUM SERUM 4.7 MMOL/L (3.5-5.1); SODIUM LEVEL 133 MMOL/L (136-145)
[2022-05-07 17:10] LABS: FREE T4 0.97 NG/DL (0.89-1.76)
== END ==
LOC: M WUC 13:21
PROVIDERS: ATTEND Physician Assistant Medical
DX: E87.5 Hyperkalemia (principal); Z79.899 Other long term (current) drug therapy

== ENCOUNTER → 2022-05-13 | Outpatient (CLI) | payer MEDICARE, OTHER ==
[~2022-05-13] MED LIST changes: +GABA-282 PO
== END ==
LOC: M ONCR 12:46
PROVIDERS: ATTEND General Practice
DX: C86.0 Extranodal NK/T-cell lymphoma, nasal type (principal); G21.19 Other drug induced secondary parkinsonism; G62.0 Drug-induced polyneuropathy; Z79.82 Long term (current) use of aspirin; Z79.899 Other long term (current) drug therapy; Z87.891 Personal history of nicotine dependence; Z88.1 Allergy status to other antibiotic agents; Z88.8 Allergy status to other drugs, medicaments and biological substances; Z91.040 Latex allergy status; Z92.21 Personal history of antineoplastic chemotherapy; Z92.3 Personal history of irradiation
CPT/HCPCS: 31575; G0463

== ENCOUNTER → 2022-07-12 | Outpatient (CLI) | payer MEDICARE, OTHER ==
[~2022-07-12] MED LIST changes: +ENAL1TAB52 PO; -ENAL20TA11 PO; +LIDO1CRE42 TOP; +LORA1TAB23 PO; -LORA1TAB4 PO
[2022-07-12 16:49] LABS: ALBUMIN 3.7 G/DL (3.2-5.2); ALKALINE PHOSPHATASE 43 U/L (46-116); ALT/SGPT 26 U/L (7.0-40); AST/SGOT 23 U/L (<34); BILIRUBIN,TOTAL 0.4 MG/DL (0.3-1.2); BLOOD UREA NITROGEN 12 MG/DL (9-23); CALCIUM LEVEL 8.9 MG/DL (8.3-10.6); CARBON DIOXIDE LEVEL 32 MMOL/L (20-31); CHLORIDE LEVEL 100 MMOL/L (98-107); GLOMERULAR FILTRATION RATE > 60.0 (>49); GLUCOSE, FASTING 107 MG/DL (74-106); POTASSIUM SERUM 4.9 MMOL/L (3.5-5.1); SODIUM LEVEL 134 MMOL/L (136-145); TOTAL PROTEIN 6.6 G/DL (5.7-8.2)
== END ==
LOC: M WUC 11:47
PROVIDERS: ATTEND General Practice
DX: C86.0 Extranodal NK/T-cell lymphoma, nasal type (principal)

== ENCOUNTER → 2022-08-04 | Outpatient (CLI) | payer MEDICARE, OTHER ==
[~2022-08-04] MED LIST changes: +ISOVUE-370 76% 100ML VIAL As Ordered ONE
== END ==
LOC: M RAD 08:29
PROVIDERS: ATTEND General Practice
DX: C86.0 Extranodal NK/T-cell lymphoma, nasal type (principal)
CPT/HCPCS: 70487; 70491; Q9967

== ENCOUNTER → 2022-08-06 | Outpatient (CLI) | payer MEDICARE, OTHER ==
[~2022-08-06] MED LIST changes: -ISOVUE-370 76% 100ML VIAL As Ordered ONE
== END ==
LOC: M WHC 12:27
PROVIDERS: ATTEND Physician Assistant Medical
DX: Z79.52 Long term (current) use of systemic steroids (principal)

== ENCOUNTER → 2022-08-13 | Outpatient (CLI) | payer MEDICARE, OTHER ==
[~2022-08-13] MED LIST changes: -LIDO1CRE42 TOP; +LIDO30CR18 TOP
== END ==
LOC: M ONCR 12:51
PROVIDERS: ATTEND General Practice
DX: Z08 Encounter for follow-up examination after completed treatment for malignant neoplasm (principal); Z85.72 Personal history of non-Hodgkin lymphomas; G20 Parkinson's disease; I65.22 Occlusion and stenosis of left carotid artery; Z71.2 Person consulting for explanation of examination or test findings; Z79.82 Long term (current) use of aspirin; Z79.899 Other long term (current) drug therapy; Z87.891 Personal history of nicotine dependence; Z88.1 Allergy status to other antibiotic agents; Z88.8 Allergy status to other drugs, medicaments and biological substances; Z91.040 Latex allergy status; Z92.21 Personal history of antineoplastic chemotherapy; Z92.3 Personal history of irradiation

== ENCOUNTER → 2022-09-10 | Outpatient (CLI) | payer MEDICARE, OTHER ==
[~2022-09-10] MED LIST changes: +ISOVUE-370 76% 100ML VIAL ONE; +LIDO1CRE42 TOP; -LIDO30CR18 TOP
[2022-09-10 13:53] LABS: BASO % 0.7 % (0.0-1.0); EOS # 0.1 10^3/uL (0.0-0.5); EOS % 1.4 % (0.0-3.0); HEMATOCRIT 37.7 % (42.0-52.0); HEMOGLOBIN 12.5 g/dl (13.5-17.5); LYMPH # 0.6 10^3/uL (1.5-5.0); LYMPH % 9.8 % (24.0-44.0); MEAN CORPUSCULAR HEMOGLOBIN 30.9 pg (27.0-33.0); MEAN CORPUSCULAR HGB CONC 33.2 g/dl (32.0-36.5); MEAN CORPUSCULAR VOLUME 93.1 fl (80.0-96.0); MONO # 0.6 10^3/uL (0.0-0.8); MONO % 9.6 % (2.0-8.0); NEUTROPHILS # 4.6 10^3/uL (1.5-8.5); PLATELET COUNT, AUTOMATED 238 10^3/uL (150-450); RED BLOOD COUNT 4.05 10^6/uL (4.30-6.10); WHITE BLOOD COUNT 5.9 10^3/uL (4.0-10.0)
[2022-09-10 14:01] LABS: ALBUMIN 3.8 G/DL (3.2-5.2); ALKALINE PHOSPHATASE 38 U/L (46-116); ALT/SGPT 13 U/L (7.0-40); AST/SGOT 23 U/L (<34); BILIRUBIN,TOTAL 0.4 MG/DL (0.3-1.2); BLOOD UREA NITROGEN 13 MG/DL (9-23); CALCIUM LEVEL 8.6 MG/DL (8.3-10.6); CARBON DIOXIDE LEVEL 31 MMOL/L (20-31); CHLORIDE LEVEL 102 MMOL/L (98-107); CHOLESTEROL LEVEL 181 MG/DL (<200); CHOLESTEROL RISK RATIO 1.85 (<5); CREATININE FOR GFR 0.82 MG/DL (0.70-1.30); GLOMERULAR FILTRATION RATE > 60.0 (>49); GLUCOSE, FASTING 104 MG/DL (74-106); HDL CHOLESTEROL 97.7 MG/DL (>40); LDL CHOLESTEROL 70.3 MG/DL (<100); NON-HDL-C 83.3 MG/DL; POTASSIUM SERUM 5.1 MMOL/L (3.5-5.1); SODIUM LEVEL 133 MMOL/L (136-145); TOTAL PROTEIN 6.6 G/DL (5.7-8.2); TRIGLYCERIDES LEVEL 65 MG/DL (<150)
[2022-09-10 14:03] LABS: FREE T4 0.91 NG/DL (0.89-1.76)
[2022-09-10 14:04] LABS: THYROID STIMULATING HORMONE 2.736 uIU/ML (0.55-4.78); VITAMIN B12 LEVEL 345 PG/ML (211-911)
== END ==
LOC: M PLAIMG 11:06
PROVIDERS: ATTEND Surgery Vascular Surgery
DX: I65.23 Occlusion and stenosis of bilateral carotid arteries (principal); I10 Essential (primary) hypertension; E87.5 Hyperkalemia; G62.9 Polyneuropathy, unspecified; E78.2 Mixed hyperlipidemia
CPT/HCPCS: 36415; 70496; 70498; 80053; 80061; 82607; 84439; 84443; 85025; Q9967

== ENCOUNTER → 2022-09-28 | Outpatient (CLI) | payer MEDICARE, OTHER ==
[~2022-09-28] MED LIST changes: -ISOVUE-370 76% 100ML VIAL ONE; -LIDO1CRE42 TOP; +LIDO30CR18 TOP
== END ==
LOC: M ONCR 14:21
PROVIDERS: ATTEND General Practice
DX: I65.29 Occlusion and stenosis of unspecified carotid artery (principal); C85.90 Non-Hodgkin lymphoma, unspecified, unspecified site; L59.8 Other specified disorders of the skin and subcutaneous tissue related to radiation; Z92.3 Personal history of irradiation

== ENCOUNTER → 2022-10-20 | Outpatient (CLI) | payer MEDICARE, OTHER ==
[2022-10-20 14:00] LABS: C REACTIVE PROTEIN QUANTITATIV < 0.40 MG/DL (<1.0)
[2022-10-20 14:01] LABS: ALBUMIN 3.9 G/DL (3.2-5.2); ALKALINE PHOSPHATASE 45 U/L (46-116); ALT/SGPT 29 U/L (7.0-40); AST/SGOT 16 U/L (<34); BILIRUBIN,TOTAL 0.5 MG/DL (0.3-1.2); BLOOD UREA NITROGEN 10 MG/DL (9-23); CALCIUM LEVEL 8.9 MG/DL (8.3-10.6); CARBON DIOXIDE LEVEL 28 MMOL/L (20-31); CHLORIDE LEVEL 99 MMOL/L (98-107); CREATININE FOR GFR 0.89 MG/DL (0.70-1.30); GLOMERULAR FILTRATION RATE > 60.0 (>49); GLUCOSE, FASTING 115 MG/DL (74-106); POTASSIUM SERUM 4.9 MMOL/L (3.5-5.1); SODIUM LEVEL 134 MMOL/L (136-145); TOTAL PROTEIN 6.8 G/DL (5.7-8.2)
[2022-10-20 14:02] LABS: BASO % 0.3 % (0.0-1.0); EOS % 0.4 % (0.0-3.0); HEMATOCRIT 38.2 % (42.0-52.0); HEMOGLOBIN 12.6 g/dl (13.5-17.5); LYMPH # 0.3 10^3/uL (1.5-5.0); LYMPH % 3.5 % (24.0-44.0); MEAN CORPUSCULAR HEMOGLOBIN 30.2 pg (27.0-33.0); MEAN CORPUSCULAR VOLUME 91.6 fl (80.0-96.0); MONO # 0.7 10^3/uL (0.0-0.8); MONO % 8.9 % (2.0-8.0); NEUTROPHILS # 6.6 10^3/uL (1.5-8.5); NEUTROPHILS % 86.5 % (36.0-66.0); PLATELET COUNT, AUTOMATED 217 10^3/uL (150-450); RED BLOOD COUNT 4.17 10^6/uL (4.30-6.10); WHITE BLOOD COUNT 7.6 10^3/uL (4.0-10.0)
[2022-10-20 14:45] LABS: ERYTHROCYTE SEDIMENTATION RATE 19 mm/hr (0-20)
== END ==
LOC: M PLALAB 11:39
PROVIDERS: ATTEND Physician Assistant Medical
DX: R50.9 Fever, unspecified (principal); R59.1 Generalized enlarged lymph nodes; A09 Infectious gastroenteritis and colitis, unspecified

== ENCOUNTER → 2022-11-02 | Outpatient (CLI) | payer MEDICARE, OTHER | LOC: M ONCR 13:28 | PROVIDERS: ATTEND General Practice | DX: C86.0 Extranodal NK/T-cell lymphoma, nasal type (principal); H53.2 Diplopia; Z71.2 Person consulting for explanation of examination or test findings; Z85.828 Personal history of other malignant neoplasm of skin; Z87.891 Personal history of nicotine dependence; Z79.82 Long term (current) use of aspirin; Z79.899 Other long term (current) drug therapy; Z88.1 Allergy status to other antibiotic agents; Z88.8 Allergy status to other drugs, medicaments and biological substances; Z91.040 Latex allergy status; Z92.21 Personal history of antineoplastic chemotherapy; Z92.3 Personal history of irradiation | CPT/HCPCS: 10005; 31575; 88173; G0463 ==

== ENCOUNTER → 2022-11-11 | Outpatient (CLI) | payer MEDICARE, OTHER ==
[2022-11-11 12:48] LABS: EOS # 0.1 10^3/uL (0.0-0.5); EOS % 2.2 % (0.0-3.0); HEMATOCRIT 37.9 % (42.0-52.0); HEMOGLOBIN 12.4 g/dl (13.5-17.5); LYMPH # 0.7 10^3/uL (1.5-5.0); LYMPH % 15.7 % (24.0-44.0); MEAN CORPUSCULAR HEMOGLOBIN 30.1 pg (27.0-33.0); MEAN CORPUSCULAR HGB CONC 32.7 g/dl (32.0-36.5); MONO # 0.6 10^3/uL (0.0-0.8); MONO % 14.2 % (2.0-8.0); NEUTROPHILS # 2.8 10^3/uL (1.5-8.5); NEUTROPHILS % 66.7 % (36.0-66.0); PLATELET COUNT, AUTOMATED 224 10^3/uL (150-450); RED BLOOD COUNT 4.12 10^6/uL (4.30-6.10); WHITE BLOOD COUNT 4.2 10^3/uL (4.0-10.0)
[2022-11-11 12:54] LABS: CORTISOL AM 5.8 UG/DL (4.3-22.4)
[2022-11-11 12:57] LABS: ALBUMIN 3.7 G/DL (3.2-5.2); ALKALINE PHOSPHATASE 43 U/L (46-116); ALT/SGPT 28 U/L (7.0-40); AST/SGOT 21 U/L (<34); BILIRUBIN,TOTAL 0.4 MG/DL (0.3-1.2); BLOOD UREA NITROGEN 12 MG/DL (9-23); CALCIUM LEVEL 9.3 MG/DL (8.3-10.6); CARBON DIOXIDE LEVEL 31 MMOL/L (20-31); CHLORIDE LEVEL 101 MMOL/L (98-107); CHOLESTEROL LEVEL 178 MG/DL (<200); CHOLESTEROL RISK RATIO 1.83 (<5); CREATININE FOR GFR 0.81 MG/DL (0.70-1.30); GLOMERULAR FILTRATION RATE > 60.0 (>49); GLUCOSE, FASTING 100 MG/DL (74-106); HDL CHOLESTEROL 96.9 MG/DL (>40); LDL CHOLESTEROL 64.7 MG/DL (<100); NON-HDL-C 81.1 MG/DL; POTASSIUM SERUM 5.1 MMOL/L (3.5-5.1); SODIUM LEVEL 138 MMOL/L (136-145); TOTAL PROTEIN 6.7 G/DL (5.7-8.2); TRIGLYCERIDES LEVEL 82 MG/DL (<150)
[2022-11-11 12:59] LABS: FREE T4 1.07 NG/DL (0.89-1.76); THYROID STIMULATING HORMONE 2.902 uIU/ML (0.55-4.78); VITAMIN B12 LEVEL 355 PG/ML (211-911)
== END ==
LOC: M WUC 08:58
PROVIDERS: ATTEND Physician Assistant Medical
DX: E87.5 Hyperkalemia (principal); R53.83 Other fatigue; E78.2 Mixed hyperlipidemia; I10 Essential (primary) hypertension; G62.9 Polyneuropathy, unspecified

== ENCOUNTER → 2022-11-25 | Outpatient (CLI) | payer MEDICARE, OTHER | LOC: M WHC 12:30 | PROVIDERS: ATTEND Physician Assistant Medical | DX: Z79.52 Long term (current) use of systemic steroids (principal) ==

== ENCOUNTER → 2023-01-26 | Outpatient (REF) | payer MEDICARE, OTHER ==
[2023-01-26 18:23] LABS: THYROID STIMULATING HORMONE 3.192 uIU/ML (0.55-4.78)
[2023-01-26 18:24] LABS: FREE T4 0.96 NG/DL (0.89-1.76)
== END ==
LOC: M LABWUC 16:12
PROVIDERS: ATTEND Physician Assistant Medical
DX: R53.82 Chronic fatigue, unspecified (principal); E53.8 Deficiency of other specified B group vitamins

== ENCOUNTER → 2023-03-24 | Outpatient (CLI) | payer MEDICARE, OTHER ==
[2023-03-24 14:35] LABS: BLOOD UREA NITROGEN 13 MG/DL (9-23); GLOMERULAR FILTRATION RATE > 60.0 (>42)
== END ==
LOC: M WUC 11:27
PROVIDERS: ATTEND Surgery Vascular Surgery
DX: I65.22 Occlusion and stenosis of left carotid artery (principal)

== ENCOUNTER → 2023-03-29 | Outpatient (CLI) | payer MEDICARE, OTHER ==
[~2023-03-29] MED LIST changes: +ISOVUE-370 76% 100ML VIAL As Ordered ONE
== END ==
LOC: M RAD 11:10
PROVIDERS: ATTEND Surgery Vascular Surgery
DX: I65.22 Occlusion and stenosis of left carotid artery (principal)
CPT/HCPCS: 70496; 70498; Q9967

== ENCOUNTER → 2023-05-13 | Outpatient (CLI) | payer MEDICARE, OTHER ==
[~2023-05-13] MED LIST changes: -ISOVUE-370 76% 100ML VIAL As Ordered ONE
== END ==
LOC: M ONCR 12:52
PROVIDERS: ATTEND General Practice
DX: C86.0 Extranodal NK/T-cell lymphoma, nasal type (principal); Z71.2 Person consulting for explanation of examination or test findings; Z79.82 Long term (current) use of aspirin; Z79.899 Other long term (current) drug therapy; Z87.891 Personal history of nicotine dependence; Z88.1 Allergy status to other antibiotic agents; Z88.8 Allergy status to other drugs, medicaments and biological substances; Z91.040 Latex allergy status; Z92.21 Personal history of antineoplastic chemotherapy; Z92.3 Personal history of irradiation
CPT/HCPCS: 31575; G0463

== ENCOUNTER → 2023-06-30 | Outpatient (REF) | payer MEDICARE, OTHER | LOC: M LAB REF 12:47 | PROVIDERS: ATTEND Family Medicine | DX: E27.40 Unspecified adrenocortical insufficiency (principal) ==

== ENCOUNTER → 2023-09-27 | Outpatient (CLI) | payer MEDICARE, OTHER ==
[~2023-09-27] MED LIST changes: +DOXY-440 PO; -DOXY-444 PO
== END ==
LOC: M WUC 11:05
PROVIDERS: ATTEND Family Medicine
DX: M65.341 Trigger finger, right ring finger (principal)

== ENCOUNTER → 2023-11-01 | Outpatient (CLI) | payer MEDICARE, OTHER ==
[~2023-11-01] MED LIST changes: +ISOVUE-370 76% 100ML VIAL As Ordered ONE
== END ==
LOC: M RAD 13:28
PROVIDERS: ATTEND General Practice
DX: C86.0 Extranodal NK/T-cell lymphoma, nasal type (principal)
CPT/HCPCS: 70491; 71260; Q9967

== ENCOUNTER → 2023-11-07 | Outpatient (REF) | payer MEDICARE, OTHER ==
[~2023-11-07] MED LIST changes: -ISOVUE-370 76% 100ML VIAL As Ordered ONE
[2023-11-07 17:51] LABS: FOLATE 14.5 NG/ML (>5.4)
== END ==
LOC: M LAB REF 16:08
PROVIDERS: ATTEND Family Medicine
DX: E87.1 Hypo-osmolality and hyponatremia (principal)

== ENCOUNTER → 2023-11-08 | Outpatient (CLI) | payer MEDICARE, OTHER | LOC: M ONCR 12:50 | PROVIDERS: ATTEND General Practice | DX: C86.0 Extranodal NK/T-cell lymphoma, nasal type (principal); Z88.1 Allergy status to other antibiotic agents; Z88.8 Allergy status to other drugs, medicaments and biological substances; Z79.82 Long term (current) use of aspirin; Z79.899 Other long term (current) drug therapy; Z87.891 Personal history of nicotine dependence; Z91.040 Latex allergy status; Z92.21 Personal history of antineoplastic chemotherapy; Z92.3 Personal history of irradiation | CPT/HCPCS: 31575; G0463 ==

== ENCOUNTER → 2023-12-14 | Outpatient (CLI) | payer MEDICARE, OTHER ==
[~2023-12-14] MED LIST changes: +E-Z-GAS II EFFERVESCENT PACKET (SODIUM BICARB./CITRIC ACID/SIMETHICONE) As Ordered ONE; +E-Z-HD 98% w/w 340GM SUSP BTL As Ordered ONE; +E-Z-PAQUE 96% w/w SUSP 176GM BTL As Ordered ONE; +GABA-1172 PO; -GABA-282 PO
== END ==
LOC: M RAD 10:19
PROVIDERS: ATTEND General Practice
DX: I65.22 Occlusion and stenosis of left carotid artery (principal); C86.00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, nasal type not having achieved remission

== ENCOUNTER → 2024-02-15 | Outpatient (CLI) | payer MEDICARE, OTHER ==
[~2024-02-15] MED LIST changes: -E-Z-GAS II EFFERVESCENT PACKET (SODIUM BICARB./CITRIC ACID/SIMETHICONE) As Ordered ONE; -E-Z-HD 98% w/w 340GM SUSP BTL As Ordered ONE; -E-Z-PAQUE 96% w/w SUSP 176GM BTL As Ordered ONE; +FLUC-1 PO; -FLUC200T4 PO
[2024-02-15 11:31] LABS: HEMOGLOBIN 11.7 g/dl (13.5-17.5); MEAN CORPUSCULAR HEMOGLOBIN 29.1 pg (27.0-33.0); MEAN CORPUSCULAR HGB CONC 31.6 g/dl (32.0-36.5); PLATELET COUNT, AUTOMATED 269 10^3/uL (150-450); RED BLOOD COUNT 4.02 10^6/uL (4.30-6.10); WHITE BLOOD COUNT 4.8 10^3/uL (4.0-10.0)
[2024-02-15 11:58] LABS: ALBUMIN 3.6 G/DL (3.2-5.2); ALKALINE PHOSPHATASE 44 U/L (40-129); ALT/SGPT 29 U/L (7.0-40); AST/SGOT 25 U/L (<34); BILIRUBIN,TOTAL 0.3 MG/DL (0.3-1.2); BLOOD UREA NITROGEN 14 MG/DL (9-23); CALCIUM LEVEL 9.6 MG/DL (8.3-10.6); CARBON DIOXIDE LEVEL 33 MMOL/L (20-31); CHLORIDE LEVEL 101 MMOL/L (98-107); CHOLESTEROL LEVEL 199 MG/DL (<200); CHOLESTEROL RISK RATIO 2.01 (<5); CREATININE FOR GFR 0.79 MG/DL (0.70-1.30); GLOMERULAR FILTRATION RATE > 60.0 (>42); GLUCOSE, FASTING 101 MG/DL (74-106); HDL CHOLESTEROL 98.8 MG/DL (>40); LDL CHOLESTEROL 84.2 MG/DL (<100); NON-HDL-C 100.2 MG/DL; POTASSIUM SERUM 4.7 MMOL/L (3.5-5.1); SODIUM LEVEL 138 MMOL/L (136-145); TOTAL PROTEIN 6.9 G/DL (5.7-8.2); TRIGLYCERIDES LEVEL 80 MG/DL (<150)
[2024-02-15 12:01] LABS: CORTISOL AM 7.6 UG/DL (4.3-22.4)
[2024-02-16 10:40] LABS: IRON (FE) 37 UG/DL (65-175); PERCENT SATURATION 8.7 % (19.7-50.0); TOTAL IRON BINDING CAPACITY 427 UG/DL (250-425)
[2024-02-16 10:43] LABS: FERRITIN 9.1 NG/ML (10.5-307.3)
== END ==
LOC: M WUC 08:12
PROVIDERS: ATTEND Family Medicine
DX: Z01.818 Encounter for other preprocedural examination (principal); E87.1 Hypo-osmolality and hyponatremia; E78.5 Hyperlipidemia, unspecified; I25.10 Atherosclerotic heart disease of native coronary artery without angina pectoris; D64.9 Anemia, unspecified; F41.9 Anxiety disorder, unspecified; G62.0 Drug-induced polyneuropathy

== ENCOUNTER 2024-02-27 09:24 | Day surgery (SDC) | payer MEDICARE, OTHER ==
[~2024-02-27] VITALS: Ht 177.8 cm; Wt 83.3 kg
[~2024-02-27 09:24] MED LIST changes: +ACET-861 PO; +GABA-1171 PO; +LR 1,000 ML IV SCH; +ROSU20TA86 PO
[2024-02-27] MEDS: FLURBIPROFEN 0.03% OPHTH SOLN 2.5 ML OD SCH (10:20)
[2024-02-27] MEDS: PHENYLEPHRINE 2.5% OPHTH SOL 2ML OD SCH (10:20)
[2024-02-27] MEDS: CYCLOPENTOLATE 1% OPHTH SOLN 2ML BTL OD SCH (10:20)
[2024-02-27] MEDS: TETRACAINE 0.5% OPHTH SOLN 4ML OD SCH (10:20)
[2024-02-27] MEDS ORDERED: fentaNYL 100 MCG/2 ML INJECTION As Ordered ONE (10:24)
[2024-02-27] MEDS ORDERED: MIDAZOLAM INJ 2MG/2ML VIAL As Ordered ONE (10:24)
[2024-02-27] MEDS: LIDOCAINE 1% SDV 5ML VIAL As Ordered ONE (10:50)
[2024-02-27] MEDS: CEFUROXIME 1MG/0.1ML INTRACAMERAL INJ As Ordered ONE (10:50)
[2024-02-27 11:09] VITALS: BP 134/63; TEMP 97.8; O2SAT 97
== END 2024-02-27 11:28 | disposition home or self-care (01) ==
LOC: M SDC 09:24
PROVIDERS: ATTEND Ophthalmology
DX: H25.11 Age-related nuclear cataract, right eye (principal); I25.10 Atherosclerotic heart disease of native coronary artery without angina pectoris; I10 Essential (primary) hypertension; I25.2 Old myocardial infarction; E27.1 Primary adrenocortical insufficiency; E78.00 Pure hypercholesterolemia, unspecified; G47.30 Sleep apnea, unspecified; Z79.899 Other long term (current) drug therapy; Z79.82 Long term (current) use of aspirin; Z92.3 Personal history of irradiation; Z95.1 Presence of aortocoronary bypass graft; Z92.21 Personal history of antineoplastic chemotherapy; Z85.72 Personal history of non-Hodgkin lymphomas; K21.9 Gastro-esophageal reflux disease without esophagitis; Z88.8 Allergy status to other drugs, medicaments and biological substances; Z88.1 Allergy status to other antibiotic agents; Z91.040 Latex allergy status; Z87.19 Personal history of other diseases of the digestive system
CPT/HCPCS: 66984; J0697; J2250; J3010; V2632

== ENCOUNTER → 2024-04-02 | Outpatient (REF) | payer MEDICARE, OTHER ==
[~2024-04-02] MED LIST changes: -LR 1,000 ML IV SCH
== END ==
LOC: M LAB REF 16:15
PROVIDERS: ATTEND Family Medicine
DX: D64.9 Anemia, unspecified (principal)

== ENCOUNTER 2024-04-06 06:58 | Day surgery (SDC) | payer MEDICARE, OTHER ==
[~2024-04-06] VITALS: Ht 177.8 cm; Wt 83.0 kg
[2024-04-06] MEDS ORDERED: propofoL 200 MG/20 ML VIAL As Ordered ONE (07:16)
[2024-04-06] MEDS ORDERED: LIDOCAINE 2% 100MG/5ML SDV (FOR ANES.) As Ordered ONE (07:16)
[2024-04-06] MEDS ORDERED: fentaNYL 100 MCG/2 ML INJECTION As Ordered ONE (07:24)
[2024-04-06 08:26] VITALS: TEMP 99.1
[2024-04-06 09:00] VITALS: BP 128/64; O2SAT 98
== END 2024-04-06 09:21 | disposition home or self-care (01) ==
LOC: M OPP 06:58
PROVIDERS: ATTEND Surgery
DX: D12.7 Benign neoplasm of rectosigmoid junction (principal); D12.5 Benign neoplasm of sigmoid colon; D12.3 Benign neoplasm of transverse colon; D12.2 Benign neoplasm of ascending colon; D50.9 Iron deficiency anemia, unspecified; K57.30 Diverticulosis of large intestine without perforation or abscess without bleeding; K21.00 Gastro-esophageal reflux disease with esophagitis, without bleeding; K29.70 Gastritis, unspecified, without bleeding; I10 Essential (primary) hypertension; I25.810 Atherosclerosis of coronary artery bypass graft(s) without angina pectoris; Z88.8 Allergy status to other drugs, medicaments and biological substances; Z91.040 Latex allergy status
CPT/HCPCS: 43239; 45385; 88305; J3010

== ENCOUNTER 2024-04-09 09:47 | Day surgery (SDC) | payer MEDICARE, OTHER ==
[~2024-04-09] VITALS: Ht 177.8 cm; Wt 82.4 kg
[~2024-04-09 09:47] MED LIST changes: +LR 1,000 ML IV SCH
[2024-04-09] MEDS ORDERED: MIDAZOLAM INJ 2MG/2ML VIAL As Ordered ONE (10:47)
[2024-04-09] MEDS ORDERED: fentaNYL 100 MCG/2 ML INJECTION As Ordered ONE (10:47)
[2024-04-09] MEDS: PHENYLEPHRINE 2.5% OPHTH SOL 2ML OS SCH (10:54)
[2024-04-09] MEDS: FLURBIPROFEN 0.03% OPHTH SOLN 2.5 ML OS SCH (10:54)
[2024-04-09] MEDS: CYCLOPENTOLATE 1% OPHTH SOLN 2ML BTL OS SCH (10:54)
[2024-04-09] MEDS: TETRACAINE 0.5% OPHTH SOLN 4ML OS SCH (10:54)
[2024-04-09] MEDS ORDERED: HYDROCORTISONE 100MG/2ML VIAL As Ordered ONE (11:50)
[2024-04-09] MEDS: LIDOCAINE 1% SDV 5ML VIAL As Ordered ONE (11:53)
[2024-04-09] MEDS: CEFUROXIME 1MG/0.1ML INTRACAMERAL INJ As Ordered ONE (11:53)
[2024-04-09 12:10] VITALS: BP 136/63; TEMP 97; O2SAT 97
== END 2024-04-09 12:37 | disposition home or self-care (01) ==
LOC: M SDC 09:47
PROVIDERS: ATTEND Ophthalmology
DX: H25.9 Unspecified age-related cataract (principal); I25.10 Atherosclerotic heart disease of native coronary artery without angina pectoris; I10 Essential (primary) hypertension; I25.2 Old myocardial infarction; Z88.1 Allergy status to other antibiotic agents; Z88.8 Allergy status to other drugs, medicaments and biological substances; Z91.040 Latex allergy status; Z79.899 Other long term (current) drug therapy
CPT/HCPCS: 66984; J0697; J1720; J2250; J3010; V2632

== ENCOUNTER → 2024-04-20 | Outpatient (CLI) | payer MEDICARE, OTHER ==
[~2024-04-20] MED LIST changes: -LR 1,000 ML IV SCH
== END ==
LOC: M WUC 11:40
PROVIDERS: ATTEND Family Medicine
DX: M54.50 Low back pain, unspecified (principal); M47.816 Spondylosis without myelopathy or radiculopathy, lumbar region; I70.0 Atherosclerosis of aorta

== ENCOUNTER → 2024-05-11 | Outpatient (CLI) | payer MEDICARE, OTHER ==
[~2024-05-11] MED LIST changes: +VANC125C13 PO; -VANC125C3 PO
== END ==
LOC: M ONCR 13:01
PROVIDERS: ATTEND General Practice
DX: C86.0 Extranodal NK/T-cell lymphoma, nasal type (principal); Z87.891 Personal history of nicotine dependence; Z92.21 Personal history of antineoplastic chemotherapy; Z88.1 Allergy status to other antibiotic agents; Z88.8 Allergy status to other drugs, medicaments and biological substances; Z91.040 Latex allergy status; Z79.891 Long term (current) use of opiate analgesic; Z79.82 Long term (current) use of aspirin; Z79.899 Other long term (current) drug therapy
CPT/HCPCS: 31575; G0463

== ENCOUNTER → 2024-05-15 | Outpatient (CLI) | payer MEDICARE, OTHER | LOC: M RAD 10:02 | PROVIDERS: ATTEND General Practice | DX: C85.90 Non-Hodgkin lymphoma, unspecified, unspecified site (principal) ==

== ENCOUNTER → 2024-07-05 | Outpatient (CLI) | payer MEDICARE, OTHER ==
[~2024-07-05] MED LIST changes: +AMLO-751 PO; -AMLO10TA PO
== END ==
LOC: M RAD 11:41
PROVIDERS: ATTEND Physician Assistant
DX: I65.23 Occlusion and stenosis of bilateral carotid arteries (principal)

== ENCOUNTER → 2024-10-17 | Outpatient (CLI) | payer MEDICARE, OTHER ==
[~2024-10-17] MED LIST changes: +LISI40TA10 PO; -LISI40TA4 PO
[2024-10-17 12:47] LABS: BASO # 0.1 10^3/uL (0.0-0.2); BASO % 1.2 % (0.0-1.0); EOS # 0.1 10^3/uL (0.0-0.5); EOS % 3.1 % (0.0-3.0); LYMPH # 0.7 10^3/uL (1.5-5.0); LYMPH % 17.5 % (24.0-44.0); MONO # 0.6 10^3/uL (0.0-0.8); MONO % 15.1 % (2.0-8.0); NEUTROPHILS # 2.7 10^3/uL (1.5-8.5); NEUTROPHILS % 62.9 % (36.0-66.0); PLATELET COUNT, AUTOMATED 265 10^3/uL (150-450)
[2024-10-17 13:15] LABS: ALT/SGPT 24 U/L (7.0-40); AST/SGOT 23 U/L (<34); CALCIUM LEVEL 8.9 MG/DL (8.3-10.6); CARBON DIOXIDE LEVEL 32 MMOL/L (20-31); CHLORIDE LEVEL 99 MMOL/L (98-107); CHOLESTEROL LEVEL 180 MG/DL (<200); CHOLESTEROL RISK RATIO 1.90 (<5); CREATININE FOR GFR 0.81 MG/DL (0.70-1.30); GLOMERULAR FILTRATION RATE > 90.0 (>42); LDL CHOLESTEROL 70.6 MG/DL (<100); NON-HDL-C 85.4 MG/DL; POTASSIUM SERUM 4.6 MMOL/L (3.5-5.1); SODIUM LEVEL 137 MMOL/L (136-145); TRIGLYCERIDES LEVEL 74 MG/DL (<150)
== END ==
LOC: M WUC 09:16
PROVIDERS: ATTEND Family Medicine
DX: D50.9 Iron deficiency anemia, unspecified (principal); I10 Essential (primary) hypertension

== ENCOUNTER → 2024-10-27 | Outpatient (CLI) | payer MEDICARE, OTHER | LOC: M RAD 14:10 | PROVIDERS: ATTEND Family Medicine | DX: R51.9 Headache, unspecified (principal) ==

== ENCOUNTER → 2024-11-06 | Outpatient (CLI) | payer MEDICARE, OTHER ==
[~2024-11-06] MED LIST changes: +RIZA5TAB2 PO
== END ==
LOC: M ONCR 13:18
PROVIDERS: ATTEND General Practice
DX: C86.00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, nasal type not having achieved remission (principal); G43.909 Migraine, unspecified, not intractable, without status migrainosus; K02.9 Dental caries, unspecified; Z92.21 Personal history of antineoplastic chemotherapy; Z92.3 Personal history of irradiation; Z87.891 Personal history of nicotine dependence; Z79.82 Long term (current) use of aspirin; Z79.899 Other long term (current) drug therapy
CPT/HCPCS: 31575; G0463

== ENCOUNTER → 2025-02-01 | Outpatient (CLI) | payer MEDICARE, OTHER ==
[2025-02-01 16:08] LABS: BASO # 0.1 10^3/uL (0.0-0.2); BASO % 0.7 % (0.0-1.0); EOS # 0.1 10^3/uL (0.0-0.5); EOS % 2.0 % (0.0-3.0); LYMPH # 1.0 10^3/uL (1.5-5.0); LYMPH % 14.2 % (24.0-44.0); MONO # 0.7 10^3/uL (0.0-0.8); MONO % 10.4 % (2.0-8.0); NEUTROPHILS # 5.0 10^3/uL (1.5-8.5); NEUTROPHILS % 72.1 % (36.0-66.0); PLATELET COUNT, AUTOMATED 256 10^3/uL (150-450)
[2025-02-01 16:10] LABS: ALT/SGPT 29 U/L (7.0-40); AST/SGOT 29 U/L (<34); CALCIUM LEVEL 8.9 MG/DL (8.3-10.6); CARBON DIOXIDE LEVEL 31 MMOL/L (20-31); CHLORIDE LEVEL 96 MMOL/L (98-107); CREATININE FOR GFR 0.85 MG/DL (0.70-1.30); GLOMERULAR FILTRATION RATE > 90.0 (>42); POTASSIUM SERUM 4.6 MMOL/L (3.5-5.1); SODIUM LEVEL 136 MMOL/L (136-145)
== END ==
LOC: M WUC 10:22
PROVIDERS: ATTEND Family Medicine
DX: I10 Essential (primary) hypertension (principal); D50.9 Iron deficiency anemia, unspecified; F41.9 Anxiety disorder, unspecified

== ENCOUNTER → 2025-03-01 | Outpatient (REF) | payer MEDICARE, OTHER ==
[2025-03-01 15:39] LABS: C REACTIVE PROTEIN QUANTITATIV < 0.50 MG/DL (<1.0)
[2025-03-01 17:35] LABS: VITAMIN B12 LEVEL 442 PG/ML (211-911)
== END ==
LOC: M LAB REF 14:17
PROVIDERS: ATTEND Family Medicine
DX: D64.9 Anemia, unspecified (principal); G62.9 Polyneuropathy, unspecified